=== PATIENT | male | born 1955 | race Caucasian/White ===

== ENCOUNTER 2016-08-24 19:54 | Emergency (ER) | payer OTHER ==
[2016-08-24 20:18] VITALS: BP 168/87; PULSE 66; TEMP 97.9; BMI 30.7
[2016-08-24] MEDS ORDERED: TAMSULOSIN HCL 0.4 MG CAP.ER.24H (FP) PO ONE (21:14)
[2016-08-24] MEDS ORDERED: ACETAMINOPHEN 325 MG TABLET (FP) PO ONE (21:14)
--- NOTE | 2016-08-24 21:16 | PDOC ---
History of Present Illness <Edna Benites - Last Filed: 08/24/16 21:49> - History of Present Illness Initial Comments: 08/24/16 21:18 The patient is a 61 year old male, with a significant past medical history of progressive 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, hypertension (on metoprolol and aspirin daily), and BPH (on tamsulosin), who presents to the emergency department with left shoulder pain and swelling s/p falling off of a chair this evening. The patient reports a bump over the left clavicle and pain with range of motion of the left shoulder. The patient also reports some mild pain to the left lower extremity but denies any tenderness or difficulty with range of motion. As per the patient s son, the patient lost balance while trying to sit on a backless chair and fell to his left side with outstretched left upper extremity. As per the patient s family, the patients mental status is at baseline and denies head trauma. The patient ambulates with a walker at baseline. He denies chest pain, shortness of breath, headache and dizziness. He denies fever, chills, nausea, vomit, diarrhea and constipation. He denies dysuria, frequency, urgency and hematuria. Allergies: NKDA PCP - Dr. Osmani Starks <Viry Soliman - Last Filed: 08/24/16 21:53> - General Chief Complaint: Injury Stated Complaint: SHOULDER INJURY/HEAD INJURY Time Seen by Provider: 08/24/16 20:45 Past History - Past Medical History HTN: Yes Other medical history: PSP - Immunization History Immunization Up to Date: Yes - Psycho/Social/Smoking Cessation Hx Suicidal Ideation: No Smoking History: Never smoked Have you smoked in the past 12 months: No Information on smoking cessation initiated: No Hx Alcohol Use: No Drug/Substance Use Hx: No Substance Use Type: None <Edna Benites - Last Filed: 08/24/16 21:49> <Viry Soliman - Last Filed: 08/24/16 21:53> - Past Medical History Allergies/Adverse Reactions: Allergies Allergy/AdvReac Type Severity Reaction Status Date / Time No Known Allergies Allergy Verified 08/24/16 20:18 Home Medications: Ambulatory Orders NK [No Known Home Medication] 08/24/16 Review of Systems - Review of Systems Able to Perform ROS?: Yes Comments:: 08/24/16 21:18 GENERAL/CONSTITUTIONAL: No fever or chills. No weakness. HEAD, EYES, EARS, NOSE AND THROAT: No change in vision. No ear pain or discharge. No sore throat. CARDIOVASCULAR: No chest pain or shortness of breath. RESPIRATORY: No cough, wheezing, or hemoptysis. GASTROINTESTINAL: No nausea, vomiting, diarrhea or constipation. GENITOURINARY: No dysuria, frequency, or change in urination. MUSCULOSKELETAL: (+) Pain to left shoulder, "bump" over left clavicle. Mild pain to left lower extremity. No joint or muscle swelling or pain. No neck or back pain. SKIN: No rash NEUROLOGIC: No headache, vertigo, loss of consciousness, or change in strength/ sensation. ENDOCRINE: No increased thirst. No abnormal weight change. HEMATOLOGIC/LYMPHATIC: No anemia, easy bleeding, or history of blood clots. ALLERGIC/IMMUNOLOGIC: No hives or skin allergy. <Viry Soliman - Last Filed: 08/24/16 21:53> *Physical Exam - Vital Signs Last Vital Signs Temp Pulse Resp BP Pulse Ox 97.9 F 66 18 168/87 96 08/24/16 20:14 08/24/16 20:14 08/24/16 20:14 08/24/16 20:14 08/24/16 20:14 <Edna Benites - Last Filed: 08/24/16 21:49> - Vital Signs Last Vital Signs Temp Pulse Resp BP Pulse Ox 97.9 F 66 18 168/87 96 08/24/16 20:14 08/24/16 20:14 08/24/16 20:14 08/24/16 20:14 08/24/16 20:14 - Physical Exam Comments: 08/24/16 21:19 GENERAL: Awake, alert, and fully oriented, in no acute distress HEAD: No signs of trauma EYES: PERRLA, EOMI, sclera anicteric, conjunctiva clear ENT: Auricles normal inspection, hearing grossly normal, nares patent, oropharynx clear without exudates. Moist mucosa NECK: Normal ROM, supple, no lymphadenopathy, JVD, or masses LUNGS: Breath sounds equal, clear to auscultation bilaterally. No wheezes, and no crackles HEART: Regular rate and rhythm, normal S1 and S2, no murmurs, rubs or gallops ABDOMEN: Soft, nontender, normoactive bowel sounds. No guarding, no rebound. No masses EXTREMITIES: (+) Normal range of motion, no edema. No clubbing or cyanosis. No cords, erythema, or tenderness NEUROLOGICAL: Cranial nerves II through XII grossly intact. Normal speech, normal gait SKIN: Warm, Dry, normal turgor, no rashes or lesions noted. <Viry Soliman - Last Filed: 08/24/16 21:53> ED Treatment Course - RADIOLOGY Radiology Studies Ordered: Category Date Time Status CLAVICLE-LEFT SIDE [RAD] Stat Radiology 08/24/16 21:15 Ordered SHOULDER-LEFT [RAD] Stat Radiology 08/24/16 21:15 Ordered <Edna Benites - Last Filed: 08/24/16 21:49> - RADIOLOGY Radiograph Interpretation: 08/24/16 21:40 Left shoulder/clavicle xray was read by Dr. Benites Impression: + there is a closed, displaced, mid clavicle fracture <Viry Soliman - Last Filed: 08/24/16 21:53> Medical Decision Making - Medical Decision Making 08/24/16 21:34 Dr. Starks was called via phone answering service at this time requesting a call back for doctor to doctor consult. 08/24/16 21:52 Dr. Starks returned the call at this time and the patient's case was discussed. Dr. Starks was informed of the referral to Dr. Merida for the left clavicle fracture with outpatient follow-up. <Viry Soliman - Last Filed: 08/24/16 21:53> *DC/Admit/Observation/Transfer - Discharge Dispostion Admit: No <Edna Benites - Last Filed: 08/24/16 21:49> <Viry Soliman - Last Filed: 08/24/16 21:53> Diagnosis at time of Disposition: Fracture, clavicle closed, shaft - Discharge Dispostion Disposition: HOME Condition at time of disposition: Stable - Referrals Referrals: Anirudh Merida MD [Staff Physician] - Osmani Starks MD [Primary Care Provider] - Carlos Alberto Rodriguez MD [Staff Physician] - Ulysses Call MD [Staff Physician] - - Patient Instructions Printed Discharge Instructions: DI for Clavicle Fracture-Adult
[2016-08-24] MEDS ORDERED: TAMSULOSIN HCL 0.4 MG CAP.ER.24H (FP) ONE (21:34)
[2016-08-24] MEDS ORDERED: ACETAMINOPHEN 325 MG TABLET (FP) ONE (21:34)
== END 2016-08-24 21:45 | disposition home or self-care (01) ==
LOC: JER 19:54
DX: S42.025A Nondisplaced fracture of shaft of left clavicle, initial encounter for closed fracture (principal); W07.XXXA Fall from chair, initial encounter; Y93.89 Activity, other specified; Y92.018 Other place in single-family (private) house as the place of occurrence of the external cause; I10 Essential (primary) hypertension; N40.0 Benign prostatic hyperplasia without lower urinary tract symptoms
CPT/HCPCS: 73000-TC-LT; 73030-TC-LT; 99281-25

== ENCOUNTER 2017-01-19 19:21 | Emergency (ER) | payer OTHER ==
[2017-01-19 19:46] VITALS: BP 142/84; PULSE 71; BMI 29.0
--- NOTE | 2017-01-19 21:15 | PDOC ---
History of Present Illness - General Chief Complaint: Injury Stated Complaint: FALL/INJURY Time Seen by Provider: 01/19/17 20:49 History Source: Patient - History of Present Illness Initial Comments: 01/19/17 21:18 CC: Fall Patient is a 61 y.o. male with a PMH of Progressive Supranuclear Palsy who presents to our ED today with his sons (@ bedside) following a fall at 2 a.m. this morning. Patient was on the toilet (possibly reaching for the toilet paper ) when he fell forward hitting his head and attempted to brace his fall with his hands. Patient is uncertain as to whether he lost consciousness. Patient denies any pre-fall syncope, shortness of breath chest pain but notes post fall he felt as if the room was spinning and he felt nauseous though he did not vomit. Past History - Past Medical History Allergies/Adverse Reactions: Allergies Allergy/AdvReac Type Severity Reaction Status Date / Time No Known Allergies Allergy Verified 01/19/17 19:46 Home Medications: Ambulatory Orders Tamsulosin HCl [Flomax] 0.4 mg PO DAILY 08/24/16 Amantadine HCl [Symmetrel -] 100 mg PO DAILY 01/19/17 Carbidopa/Levodopa *Cr* 25/100 [Sinemet *Cr* 25/100 -] 1 tab PO BID 01/19/17 Carbidopa/Levodopa 25/250 [Sinemet 25/250 -] 1 each PO DAILY 01/19/17 Gabapentin 100 mg PO DAILY 01/19/17 Losartan Potassium 50 mg PO DAILY 01/19/17 Metoprolol Tartrate 50 mg PO DAILY 01/19/17 Sertraline HCl [Zoloft] 100 mg PO DAILY 01/19/17 GI Disorders: Yes (GERD) HTN: Yes Other medical history: progressive palsey - Immunization History Immunization Up to Date: Yes - Psycho/Social/Smoking Cessation Hx Suicidal Ideation: No Smoking History: Never smoked Have you smoked in the past 12 months: No Hx Alcohol Use: No Drug/Substance Use Hx: No Substance Use Type: None *Physical Exam - Vital Signs Last Vital Signs Temp Pulse Resp BP Pulse Ox 71 18 142/84 96 01/19/17 19:43 01/19/17 19:43 01/19/17 19:43 01/19/17 19:43 - Physical Exam General Appearance: Yes: Nourished, Appropriately Dressed HEENT: positive: EOMI, TOM Neck: positive: Trachea midline, Supple Cardiovascular: positive: Regular Rhythm, Regular Rate, S1, S2 Gastrointestinal/Abdominal: positive: Normal Bowel Sounds, Soft Extremity: positive: Other (L hand has limited plant ecologist likely 2/2 to ) Medical Decision Making - Medical Decision Making 01/19/17 21:21 Patient is a 61 y.o. male who presents to our facility today following an unwitnessed fall at home in which he notes he hit his head. PLAN 1. CT Head 2. L shoulder x-ray 01/19/17 22:43 CT Head is negative for acute intracranial process. Wet read of L shoulder X- ray showed no humeral head dislocation, no subluxation,no fracture. Patient sent home with family, instructed to follow-up with PCP. *DC/Admit/Observation/Transfer Diagnosis at time of Disposition: Fall - Discharge Dispostion Disposition: HOME Condition at time of disposition: Good Admit: No - Referrals Referrals: Osmain Starks MD [Primary Care Provider] - - Patient Instructions Printed Discharge Instructions: How to Prevent Falls Additional Instructions: You were evaluated today in the Emergency Department for any brain bleed or broken bones following a fall. Please return to the Emergency Department should you experience any chest pain, shortness of breath, confusion or severe discomfort. Please follow up with your PCP in 3-5 days.
--- NOTE | 2017-01-19 23:12 | PDOC ---
Attending Attestation - Resident Resident Name: Elsie Cornejo - ED Attending Attestation I have performed the following: I have examined & evaluated the patient, The case was reviewed & discussed with the resident, I agree w/resident's findings & plan, Exceptions are as noted - HPI HPI: 01/19/17 23:07 61 yo M with h/o 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, lives at home with his sons, here today with reported fall at 2 am todya. noted abrasions forehead. pt has had several falls over the months. follows with a nuerologist ( dr flynn ) and dr hwang. no f/c /co mild left shoulder pain since fall. 01/19/17 23:12 - Physicial Exam PE: 01/19/17 23:12 on exam pt awake alert head wtih abrasion forehead. superfiical and nasal bridge. no spinal tendenress. lungs clear bilaterally, no chest wall tenderness. heart rrr no mrg. abd soft nt nd. nuero awake minimal verbal. slurred speech ( old ) 5/5 all four ext. reduced roving frame tender left hand. - Medical Decision Making 01/19/17 23:12 plan: ct head r/o traumatic injury. pt family states hes already had home safey eval and goes to physical therapy. recommend outp close follo up wih dr. hwang and dr. flynn. 01/19/17 23:[address] negative. xray shoulder negative for fracture. dc with close followup.
== END 2017-01-19 23:09 | disposition home or self-care (01) ==
LOC: JER 19:21
DX: S09.8XXA Other specified injuries of head, initial encounter (principal); W18.11XA Fall from or off toilet without subsequent striking against object, initial encounter; Z91.81 History of falling; Y93.89 Activity, other specified; Y92.013 Bedroom of single-family (private) house as the place of occurrence of the external cause; I10 Essential (primary) hypertension; K21.9 Gastro-esophageal reflux disease without esophagitis; G23.1 Progressive supranuclear ophthalmoplegia [Steele-Richardson-Olszewski]
CPT/HCPCS: 70450-TC; 73030-TC-LT; 73030-TC-RT; 73060-TC-LT; 99281-25

== ENCOUNTER 2017-10-16 12:38 | Emergency (ER) | payer OTHER ==
[2017-10-16 12:50] VITALS: TEMP 98.2; BMI 27.4
[2017-10-16] MEDS ORDERED: SODIUM CHLORIDE 500 ML IV STA (13:07)
--- NOTE | 2017-10-16 13:07 | PDOC ---
History of Present Illness - General History Source: Family - History of Present Illness Timing/Duration: reports: other (last night), constant <Terry May - Last Filed: 10/16/17 13:57> <Rehan Catherine - Last Filed: 10/23/17 15:03> - General Chief Complaint: Cold Symptoms Stated Complaint: COUGH, SOB Time Seen by Provider: 10/16/17 12:49 Past History - Past Medical History COPD: No GI Disorders: Yes (GERD) HTN: Yes Other medical history: progressive nucleosis paralysis disease - Immunization History Immunization Up to Date: Yes - Suicide/Smoking/Psychosocial Hx Smoking History: Never smoked Have you smoked in the past 12 months: No Information on smoking cessation initiated: No Hx Alcohol Use: No Drug/Substance Use Hx: No Substance Use Type: None <Terry May - Last Filed: 10/16/17 13:57> <FlorinRehan - Last Filed: 10/23/17 15:03> - Past Medical History Allergies/Adverse Reactions: Allergies Allergy/AdvReac Type Severity Reaction Status Date / Time No Known Allergies Allergy Verified 10/16/17 12:46 Home Medications: Ambulatory Orders Tamsulosin HCl [Flomax] 0.4 mg PO DAILY 08/24/16 Carbidopa/Levodopa 25/250 [Sinemet 25/250 -] 1 each PO ASDIR 01/19/17 Losartan Potassium 50 mg PO DAILY 01/19/17 Citalopram Hydrobromide [Citalopram HBr] 0 mg PO DAILY 10/16/17 Guaifenesin Dm [Robitussin Dm -] 10 ml PO Q6H #120 ml 10/16/17 Review of Systems - Review of Systems Able to Perform ROS?: No <Terry May Last Filed: 10/16/17 13:57> *Physical Exam - Vital Signs Last Vital Signs Temp Pulse Resp BP Pulse Ox 98.2 F 67 16 147/81 100 10/16/17 12:47 10/16/17 12:47 10/16/17 12:47 10/16/17 12:47 10/16/17 12:47 - Physical Exam General Appearance: Yes: Appropriately Dressed. No: Apparent Distress Neck: positive: Supple Respiratory/Chest: positive: Lungs Clear, Normal Breath Sounds. negative: Respiratory Distress Cardiovascular: positive: Regular Rate, S1, S2 Gastrointestinal/Abdominal: positive: Soft. negative: Tender Extremity: negative: Pedal Edema Integumentary: positive: Dry, Warm Neurologic: positive: Alert <Ibeth MayDelfina - Last Filed: 10/16/17 13:57> - Vital Signs Last Vital Signs Temp Pulse Resp BP Pulse Ox 98.2 F 83 17 118/79 99 10/16/17 14:08 10/16/17 14:08 10/16/17 14:08 10/16/17 14:08 10/16/17 14:08 <Rehan Catherine - Last Filed: 10/23/17 15:03> ED Treatment Course - LABORATORY CBC & Chemistry Diagram: 10/16/17 13:15 10/16/17 13:15 - RADIOLOGY Radiology Studies Ordered: Category Date Time Status CHEST PA & LAT [RAD] Stat Radiology 10/16/17 12:51 Ordered <JamaicanIbethDelfina - Last Filed: 10/16/17 13:57> - LABORATORY CBC & Chemistry Diagram: 10/16/17 13:15 10/16/17 13:15 - ADDITIONAL ORDERS Additional order review: 10/16/17 13:15 RBC 5.06 MCV 89.1 MCHC 33.5 RDW 13.6 MPV 7.2 L Neutrophils % 62.3 Lymphocytes % 27.6 Monocytes % 8.8 Eosinophils % 0.9 Basophils % 0.4 - Medications Given in the ED: ED Medications Discontinued Medications Generic Name Dose Route Start Last Admin Trade Name Freq PRN Reason Stop Dose Admin Sodium Chloride 500 mls @ 500 mls/hr 10/16/17 13:07 10/16/17 13:36 Normal Saline - IV 10/16/17 14:06 500 mls/hr ASDIR STA Administration <Rehan Catherine - Last Filed: 10/23/17 15:03> Medical Decision Making - Medical Decision Making 10/16/17 13:05 38-year-old male history of progressive 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, ambulates with walker but mostly in a wheelchair per son, hypertension and BPH who presents to ER with productive cough with possible wheezing since last night. Family brought patient in rule out pneumonia. No fever or vomiting at home. Patient with poor speech at baseline and unable to give history, but does not appear to be in any distress at this time See exam Viral URI, r/o PNA Stable and well neel w/ clear chest/lungs, no edema -CXR -labs -IVF -dispo pending 10/16/17 13:54 Chest x-ray and labs unremarkable. Patient remained stable and well appearing, in ED. Will DC with supportive treatment and have patient follow-up with his PMD next week. Reasons to return discussed with family <Terry May - Last Filed: 10/16/17 13:57> - Medical Decision Making The patient was seen and evaluated in conjunction with TRACEY May under my direct supervision, ancillary studies were reviewed. I agree with the plan as outlined by TRACEY May . <Rehan Catherine - Last Filed: 10/23/17 15:03> *DC/Admit/Observation/Transfer <Terry May - Last Filed: 10/16/17 13:57> <Rehan Catherine - Last Filed: 10/23/17 15:03> Diagnosis at time of Disposition: Cough - Discharge Dispostion Disposition: HOME Condition at time of disposition: Good - Prescriptions Prescriptions: Guaifenesin Dm [Robitussin Dm -] 10 ml PO Q6H #120 ml - Referrals Referrals: Osmani Starks MD [Primary Care Provider] - - Patient Instructions Printed Discharge Instructions: DI for Viral Upper Respiratory Infection -- Adult Additional Instructions: Your chest x-ray and lab work were normal. We suspect that patient has a viral upper respiratory infection. Maintain adequate hydration and administer Robitussin as directed. Continue to follow-up with patient's PMD
[2017-10-16 13:25] LABS: BASO % 0.4 % (0-2.0); EOS % 0.9 % (0-4.5); HEMATOCRIT 45.1 % (35.4-49); HEMOGLOBIN 15.1 GM/dL (11.7-16.9); LYMPH % 27.6 % (8-40); MCH 29.8 pg (25.7-33.7); MCHC 33.5 g/dl (32.0-35.9); MEAN CELL VOLUME 89.1 fl (80-96); MEAN PLT VOLUME 7.2 fl (7.5-11.1); MONO % 8.8 % (3.8-10.2); NEUT % 62.3 % (42.8-82.8); PLATELET COUNT 332 K/MM3 (134-434); RBC 5.06 M/mm3 (4.00-5.60); RDW 13.6 % (11.9-15.9); WHITE BLOOD COUNT 4.9 K/mm3 (4.0-10.0)
[2017-10-16 13:51] LABS: ALBUMIN 3.5 g/dl (3.4-5.0); ANION GAP 7 (8-16); BILIRUBIN,TOTAL 0.9 mg/dL (0.2-1.0); BLOOD UREA NITROGEN 20 mg/dL (7-18); CALCIUM 8.7 mg/dL (8.5-10.1); CHLORIDE 107 mmol/L (98-107); CO2 30 mmol/L (21-32); CREATININE 0.9 mg/dL (0.7-1.3); GLUCOSE,RANDOM 111 mg/dL (74-106); SGOT/AST 16 U/L (15-37); SGPT/ALT 17 U/L (12-78); SODIUM 144 mmol/L (136-145); TOT PROT 7.4 g/dl (6.4-8.2)
[2017-10-16 13:52] LABS: ALK PHOS 91 U/L (45-117)
[2017-10-16 14:09] VITALS: BP 118/79; PULSE 83
== END 2017-10-16 14:09 | disposition home or self-care (01) ==
LOC: JER 12:38
PROC: 3E0337Z Introduction of Electrolytic and Water Balance Substance into Peripheral Vein, Percutaneous Approach (ICD-10-PCS; principal; 2017-10-16)
DX: R05 Cough (principal); G83.9 Paralytic syndrome, unspecified; Z99.89 Dependence on other enabling machines and devices
CPT/HCPCS: 36415; 71045-TC-FY; 80053; 85025; 96360; 99283-25

== ENCOUNTER 2017-12-15 14:01 | Day surgery (SDC) | payer OTHER ==
[2017-12-14 14:59] VITALS: BMI 22.4
[2017-12-15 14:37] VITALS: BP 131/68; PULSE 76; TEMP 98.2
[2017-12-15] MEDS ORDERED: CARBIDOPA/LEVODOPA 25/100 TABLET (FP) PO SCH (18:00)
[2017-12-16] MEDS ORDERED: TAMSULOSIN HCL 0.4 MG CAP.ER.24H (FP) PO SCH (08:30)
[2017-12-16] MEDS ORDERED: LOSARTAN POTASSIUM 50 MG TABLET (FP) PO SCH (10:00)
[2017-12-16] MEDS ORDERED: NEBIVOLOL 5 MG TABLET (FP) PO SCH (10:00)
[2017-12-16] MEDS ORDERED: ESCITALOPRAM OXALATE 10 MG TABLET (FP) PO SCH (10:00)
== END 2017-12-15 20:23 | disposition home or self-care (01) ==
LOC: JASUSAT 14:01 → J6S 14:27 → JASUSAT 20:23
PROVIDERS: ATTEND Internal Medicine Gastroenterology
PROC: 0DH63UZ Insertion of Feeding Device into Stomach, Percutaneous Approach (ICD-10-PCS; principal; 2017-12-15 09:15)
DX: Z43.1 Encounter for attention to gastrostomy (principal); R13.19 Other dysphagia

== ENCOUNTER 2019-03-09 16:05 | Inpatient (IN) | payer OTHER ==
--- NOTE | 2019-03-09 16:14 | PDOC ---
Rapid Medical Evaluation Time Seen by Provider: 03/09/19 16:13 Medical Evaluation: Allergies Allergy/AdvReac Type Severity Reaction Status Date / Time No Known Allergies Allergy Verified 10/16/17 12:46 03/09/19 16:15 I have performed a brief in-person evaluation of this patient. The patient presents with a chief complaint of: dyspnea Pertinent physical exam findings:stable and in NAD, non-focal I have ordered the following:labs The patient will proceed to the ED for further evaluation.
--- NOTE | 2019-03-09 16:53 | PDOC ---
Documentation entered by Roxy Alcazar SCRIBE, acting as scribe for Edda Chaudhry DO. Edda Chaudhry, DO: This documentation has been prepared by the Inge davis Adrianna, SCRIBE, under my direction and personally reviewed by me in its entirety. I confirm that the documentation accurately reflects all work, treatment, procedures, and medical decision making performed by me. History of Present Illness - General Chief Complaint: Respiratory Stated Complaint: CHEST CONGESTION Time Seen by Provider: 03/09/19 16:13 - History of Present Illness Initial Comments: The patient is a 63 year old male, with a significant PMH of 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 , who presents to the ED for evaluation of dyspnea for 10 days. History is provided by son, who is a MD. Son notes that the patient has had URI symptoms for the past 10 days, including cough, runny nose, congestion, sore throat, SOB , and fever (low 100s). Son prescribed the patient Augmentin, which alleviated the fever, but the SOB, cough, and wheezing remained (worse when lying flat). He notes that the patient cannot clear his cough secondary to his 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. Patient was given a duoneb and mucomyst last night without any changes in symptoms. He presents to the ED today as his symptoms have not resolved and his O2 sat dropped to 96 today. Allergies: NKA, NKDA Surgical History: None reported Social History: Supranuclear palsy PCP: Dr. Starks Neurologist: Dr. Bashir Past History - Past Medical History Allergies/Adverse Reactions: Allergies Allergy/AdvReac Type Severity Reaction Status Date / Time No Known Allergies Allergy Verified 03/09/19 17:54 Home Medications: Ambulatory Orders Carbidopa/Levodopa 25/250 [Sinemet 25/250 -] 1 each PO ASDIR 01/19/17 Escitalopram Oxalate [Lexapro -] 10 mg PO DAILY 12/14/17 Doxazosin Mesylate 4 mg PO DAILY 03/09/19 Mirtazapine 15 mg PO DAILY 03/09/19 Anemia: No Asthma: No Cancer: No Cardiac Disorders: No CVA: No COPD: No CHF: No Dementia: No Diabetes: No GI Disorders: Yes (GERD) Disorders: (BPH) HTN: Yes Hypercholesterolemia: No Seizures: No Other medical history: PSP - Surgical History Abdominal Surgery: (G-TUBE) - Immunization History Immunization Up to Date: Yes - Psycho Social/Smoking Cessation Hx Smoking History: Never smoked Have you smoked in the past 12 months: No Hx Alcohol Use: No Drug/Substance Use Hx: No Substance Use Type: None Review of Systems - Review of Systems Able to Perform ROS?: No (2/2 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) *Physical Exam - Vital Signs Last Vital Signs Temp Pulse Resp BP Pulse Ox 98.1 F 90 18 128/68 95 03/09/19 16:13 03/09/19 16:13 03/09/19 16:13 03/09/19 16:13 03/09/19 16:13 - Physical Exam Comments: Constitutional: +Upwards gaze. +Garbling speech. Awake, alert, oriented. No acute distress. Head: Normocephalic. Atraumatic Eyes: PERRL. EOMI. Conjunctivae are not pale. ENT: Mucous membranes are moist and intact. Posterior pharynx without exudates or erythema. Uvula midline. Neck: Supple. Full ROM. No lymphadenopathy. Cardiovascular: Regular rate. Regular rhythm. S1, S2 regular. Distal pulses are 2+ and symmetric. Pulmonary/Chest: +Crackles at the bilateral bases. +Upper airway transmitting sounds of phlegm. No evidence of respiratory distress. No rales or rhonchi. Abdominal: +PEG tube in place. Soft and nondistended. There is no tenderness. No rebound, guarding or rigidity. No organomegaly. No palpable masses. Good bowel sounds. Back: No CVA tenderness. Musculoskeletal: Moving all extremities. No edema. No cyanosis. No clubbing. Nocalf tenderness. Radial/pedal pulses are intact and 2+ bilaterally Skin: Skin is warm and dry. No petechiae. No purpura. Neurological: Cranial nerves II-XII are grossly intact. Strength is grossly symmetric. Heart Score/ECG Review - ECG Intrepretation Comment:: 03/09/19 17:20 sinus at 80, nl axis, incomplete RBBB, q waves septally which are age indeterminate, no acute st/t wave findings ED Treatment Course - LABORATORY CBC & Chemistry Diagram: 03/09/19 16:30 03/09/19 16:30 Medical Decision Making - Medical Decision Making 03/09/19 16:50 a/p: 63yo male with hx of 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 with cough/congestion and sob -no hx of O2 use at home -has been treated with augmentin x 10 days with worsening cough/sob, congestion -low pulse ox -92-93 at home today -pt currenlty 94-95 on 2L nc -pt with coarse bs and congested cough, but poor cough reflex -pt with peg tube, npo -no fevers since on being on augmentin -will send labs, cultures -cxr -ekg -pmd dr. margy starks, neuro dr. bashir -pt will likely need admission for eval of sob/cough 03/09/19 18:21 cxr clear no elevated wbc 03/09/19 18:27 family and pt updated, smoke with son, the physician about ordering a CT scan will continue to monitor 03/09/19 20:39 pt with patchy b/l infiltrates pt has had 10 days of abx as outpt failed therapy pulse ox 91-94 on 2L nc will admit family updated and agrees with the plan call placed to Dr. Bashir to update him as well 03/09/19 20:41 I, Dr. Edda Chuadhry, DO, attest that this document has been prepared under my direction and personally reviewed by me in its entirety. I further attest, that it accurately reflects all work, treatment, procedures and medical decision -making performed by me. 03/09/19 21:23 case discussed with Deena- rubber covering machine operator from [facility] who accepts pt to service under Dr. Bhakta case discussed with Dr. Bashir who will see the patient tomorrow in consult Discharge - Discharge Information Problems reviewed: Yes Clinical Impression/Diagnosis: Pneumonia Condition: Guarded - Admission Yes - Follow up/Referral Referrals: Margy Starks MD [Primary Care Provider] - - Patient Discharge Instructions - Post Discharge Activity
[2019-03-09 17:05] LABS: VENOUS PC02 41.4 mmHg (38-52); VENOUS PH 7.44 (7.31-7.41)
[2019-03-09 17:08] LABS: BASO % 0.4 % (0-2.0); EOS % 0.7 % (0-4.5); HEMATOCRIT 39.2 % (35.4-49); HEMOGLOBIN 13.7 GM/dL (11.7-16.9); LYMPH % 20.9 % (8-40); MCH 32.5 pg (25.7-33.7); MEAN CELL VOLUME 92.9 fl (80-96); MEAN PLT VOLUME 8.4 fl (7.5-11.1); MONO % 5.1 % (3.8-10.2); NEUT % 72.9 % (42.8-82.8); PLATELET COUNT 244 K/MM3 (134-434); RBC 4.22 M/mm3 (4.00-5.60); RDW 12.7 % (11.9-15.9); WHITE BLOOD COUNT 6.2 K/mm3 (4.0-10.0)
[2019-03-09 17:33] LABS: ALBUMIN 3.5 g/dl (3.4-5.0); ALK PHOS 88 U/L (45-117); ANION GAP 7 MMOL/L (8-16); BILIRUBIN,TOTAL 1.3 mg/dL (0.2-1); BLOOD UREA NITROGEN 18.9 mg/dL (7-18); CALCIUM 8.7 mg/dL (8.5-10.1); CHLORIDE 105 mmol/L (98-107); CO2 29 mmol/L (21-32); CREATININE 0.7 mg/dL (0.55-1.3); GLUCOSE,RANDOM 105 mg/dL (74-106); POTASSIUM 3.9 mmol/L (3.5-5.1); SGOT/AST 18 U/L (15-37); SGPT/ALT 13 U/L (13-61); SODIUM 141 mmol/L (136-145)
[2019-03-09 17:43] LABS: INR 1.13 (0.83-1.09); PROTHROMBIN TIME (PATIENT) 13.3 SEC (9.7-13.0)
[2019-03-09 17:46] LABS: ACTIVATED PTT 36.7 SECONDS (25.2-36.5)
[2019-03-09 18:44] LABS: N-TERMINAL BNP 71.9 pg/ml (5-125)
[2019-03-09] MEDS ORDERED: CEFTRIAXONE 1 GM in DEXTROSE 5%-WATER - 100 ML IVPB ONE (20:36)
[2019-03-09] MEDS ORDERED: AZITHROMYCIN IVPB 500 MG in DEXTROSE 5%-WATER - 250 ML IVPB ONE (20:36)
[2019-03-09] MEDS ORDERED: AZITHROMYCIN IVPB 500 MG/250 ML BAG IVPB ONE (20:39)
[2019-03-09] MEDS ORDERED: CEFTRIAXONE 1 GM/50 ML BAG ONE (20:40)
[2019-03-09] MEDS ORDERED: CARBIDOPA/LEVODOPA 25/250 TABLET (FP) PEG ONE (21:55)
[2019-03-09] MEDS ORDERED: CEFTRIAXONE 500 MG in DEXTROSE 5%-WATER - 50 ML IVPB SCH (22:00)
[2019-03-09] MEDS ORDERED: CARBIDOPA/LEVODOPA 25/250 TABLET (FP) PO SCH (22:00)
[2019-03-09] MEDS ORDERED: CARBIDOPA/LEVODOPA 25/250 TABLET (FP) PEG SCH (22:00)
--- NOTE | 2019-03-09 22:13 | HP ---
CHIEF COMPLAINT: fever, shortness of breath, cough and congestion for 10 days PCP:Dr. Osmani Starks Neurologist: Dr. Bashir HISTORY OF PRESENT ILLNESS: Mr. Kaplan is a 63 year old male who presents from home with a past medical history of 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 (follows with Dr. Bashir of Neurology, has a feeding tube), depression/anxiety, BPH and no cardiac history who presents to the emergency room for evaluation of dyspnea associated with fever,cough, and congestion for the past 10 days. Son who is a physician prescribed the patient Augmentin which he took for 10 days which alleviated the fever, but the SOB, cough, and congestion remained and was worse when lying flat. Patient presented to the ER for further evaluation. Upon evaluation in the ER labs notable for a normal WBC and lactic acid level( 1.6, repeat 0.9), normal BNP and troponin. CT scan of chest demonstrated bilateral infiltrate consistent with a bilateral pneumonia and a very small pericardial effusion as seen on prior study. He was treated with one dose of IV Rocephin 1 gm and IV Azithromycin 500mg. He was admitted to the Medical Team for further medical treatment. DNR Status: Full Code History obtained from 2 sons at bedside. Recent Travel: no PAST MEDICAL HISTORY: 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 PAST SURGICAL HISTORY: PEG Social History: Smoking:no Alcohol:no Drugs: no Allergies No Known Allergies Allergy (Verified 03/09/19 17:54) HOME MEDICATIONS: Home Medications Medication Instructions Recorded Carbidopa/Levodopa 25/250 [Sinemet 1 each PO ASDIR 01/19/17 25/250 -] Escitalopram Oxalate [Lexapro -] 10 mg PO DAILY 12/14/17 Doxazosin Mesylate 4 mg PO DAILY 03/09/19 Mirtazapine 15 mg PO DAILY 03/09/19 REVIEW OF SYSTEMS CONSTITUTIONAL: Absent: fever, chills, diaphoresis, generalized weakness, malaise, loss of appetite, weight change HEENT: Absent: rhinorrhea, congestion, throat pain, throat swelling, difficulty swallowing, mouth swelling, ear pain, eye pain, visual changes CARDIOVASCULAR: Absent: chest pain, syncope, palpitations, irregular heart rate, lightheadedness , peripheral edema RESPIRATORY: Absent: cough, shortness of breath, dyspnea with exertion, orthopnea, wheezing, stridor, hemoptysis GASTROINTESTINAL: Absent: abdominal pain, abdominal distension, nausea, vomiting, diarrhea, constipation, melena, hematochezia GENITOURINARY: Absent: dysuria, frequency, urgency, hesitancy, hematuria, flank pain, genital pain MUSCULOSKELETAL: Absent: myalgia, arthralgia, joint swelling, back pain, neck pain SKIN: Absent: rash, itching, pallor HEMATOLOGIC/IMMUNOLOGIC: Absent: easy bleeding, easy bruising, lymphadenopathy, frequent infections ENDOCRINE: Absent: unexplained weight gain, unexplained weight loss, heat intolerance, cold intolerance NEUROLOGIC: Absent: headache, focal weakness or paresthesias, dizziness, unsteady gait, seizure, mental status changes, bladder or bowel incontinence PSYCHIATRIC: Absent: anxiety, depression, suicidal or homicidal ideation, hallucinations. PHYSICAL EXAMINATION Vital Signs - 24 hr 03/09/19 03/09/19 03/09/19 16:13 16:55 18:13 Temperature 98.1 F Pulse Rate 90 80 Respiratory 18 Rate Blood Pressure 128/68 O2 Sat by Pulse 95 93 L 95 Oximetry (%) GENERAL: awake and alert follows simple commands HEAD: normal EYES: pupils equal round and reactive to light EARS, NOSE, THROAT: ears normal nares patent oropharynx clear NECK: normal LUNGS: breath sounds coarse and rhonchourous, audible congestion noted, no use of accessory muscles HEART: regular rate and rhythm no murmurs ABDOMEN: soft nontender not distended has G-tube UPPER EXTREMITIES: 2+ pulses warm well-perfused no peripheral edema LOWER EXTREMITIES: 2+ pulses warm well-perfused no pitting edema NEUROLOGICAL: moving upper and lower extremities follows simple commands strength appears symmetrical PSYCHIATRIC: appears anxious SKIN: warm dry normal skin turgor Laboratory Results - last 24 hr 03/09/19 03/09/19 03/09/19 16:30 16:30 16:30 WBC 6.2 RBC 4.22 Hgb 13.7 Hct 39.2 MCV 92.9 MCH 32.5 MCHC 35.0 RDW 12.7 Plt Count 244 D MPV 8.4 D Absolute Neuts (auto) 4.5 Neutrophils % 72.9 Lymphocytes % 20.9 D Monocytes % 5.1 Eosinophils % 0.7 Basophils % 0.4 Nucleated RBC % 0 PT with INR INR PTT (Actin FS) VBG pH POC VBG pCO2 POC VBG pO2 VBG HCO3 VBG O2 Sat (Kwame) VBG Base Excess Sodium 141 Potassium 3.9 Chloride 105 Carbon Dioxide 29 Anion Gap 7 L BUN 18.9 H Creatinine 0.7 Est GFR (CKD-EPI)AfAm 114.78 Est GFR (CKD-EPI)NonAf 99.03 Random Glucose 105 Lactic Acid 1.6 Calcium 8.7 Total Bilirubin 1.3 H AST 18 ALT 13 Alkaline Phosphatase 88 Troponin I < 0.02 B-Natriuretic Peptide 71.9 Total Protein 7.0 Albumin 3.5 03/09/19 03/09/19 16:30 16:30 WBC RBC Hgb Hct MCV MCH MCHC RDW Plt Count MPV Absolute Neuts (auto) Neutrophils % Lymphocytes % Monocytes % Eosinophils % Basophils % Nucleated RBC % PT with INR 13.30 H INR 1.13 H PTT (Actin FS) 36.7 H VBG pH 7.44 H POC VBG pCO2 41.4 POC VBG pO2 57.0 H VBG HCO3 27.8 VBG O2 Sat (Kwame) 90.1 H VBG Base Excess 3.8 H Sodium Potassium Chloride Carbon Dioxide Anion Gap BUN Creatinine Est GFR (CKD-EPI)AfAm Est GFR (CKD-EPI)NonAf Random Glucose Lactic Acid Calcium Total Bilirubin AST ALT Alkaline Phosphatase Troponin I B-Natriuretic Peptide Total Protein Albumin ASSESSMENT/PLAN: In summary Mr. Kaplan is a 63 year old male with a past medical history of 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 and BPH who presents for evaluation of dyspnea associated with fever, cough, and congestion for the past 10 days despite taking oral Augmentin for [address] scan of chest demonstrated bilateral infiltrates. #1 Bilateral Pneumonia Workup w/ normal WBC and lactic acid level. Patient has clinical signs of PNA, oxygen sat 93-95%,hemodynamically stable and currently afebrile --Continue with IV Azithromycin 250mg once daily and IV Ceftriaxone 500mg once daily --Consulted Infectious Diseases- Dr. Jackson --Consulted Pulmonary- Dr. Griffith --Albuterol respiratory treatment q6hr --Maintain oxygen saturation >90% #2 Supranuclear Palsy --Continue with sinemet 25/250mg QID(Neurology will clarify dose in am) --Neurology- Dr. Bashir consulted #3 Depression/Anxiety --Continue with mitrazapine and lexapro #4 Pericardial Effusion(very small) As reported on CT scan of chest no change in size from prior study No evidence of hypotension or tachycardia --Continue to monitor hemodynamic status #4 BPH --Continue with doxzosin DVT --SCD's/TEDS --Lovenox 40mg once daily FEN --Jevity bolus feeding by PEG --Land Commissioner consult placed for feeding recommendations (albumin level 3.5) --Monitor electrolytes Visit type - Emergency Visit Emergency Visit: Yes ED Registration Date: 03/09/19 Care time: The patient presented to the Emergency Department on the above date and was hospitalized for further evaluation of their emergent condition. - New Patient This patient is new to me today: Yes Date on this admission: 03/09/19 - Critical Care Critical Care patient: No
[2019-03-09] MEDS ORDERED: ENOXAPARIN NA (PORCINE) 40 MG/0.4 ML DISP.SYRIN SQ ONE (22:32)
[2019-03-09] MEDS ORDERED: CARBIDOPA/LEVODOPA 25/100 TABLET (FP) ONE (22:32)
[2019-03-09] MEDS: ENOXAPARIN NA (PORCINE) 40 MG/0.4 ML DISP.SYRIN SQ SCH (22:44)
[2019-03-09] MEDS ORDERED: ALBUTEROL SO4 0.083% IH SOL 2.5 MG/3 ML VIAL.NEB. NEB ONE (23:44)
[2019-03-09] MEDS: ALBUTEROL SO4 0.083% IH SOL 2.5 MG/3 ML VIAL.NEB. NEB SCH (23:47)
[2019-03-10] MEDS: SODIUM CHLORIDE 1,000 ML IV SCH (00:52)
[2019-03-10] MEDS: ALBUTEROL SO4 0.083% IH SOL 2.5 MG/3 ML VIAL.NEB. NEB SCH ×4 (08:00→20:53)
[2019-03-10 09:49] LABS: BASO % 0.4 % (0-2.0); EOS % 0.3 % (0-4.5); HEMATOCRIT 36.5 % (35.4-49); HEMOGLOBIN 12.8 GM/dL (11.7-16.9); LYMPH % 14.2 % (8-40); MCH 32.7 pg (25.7-33.7); MCHC 35.2 g/dl (32.0-35.9); MEAN CELL VOLUME 92.8 fl (80-96); MEAN PLT VOLUME 8.5 fl (7.5-11.1); MONO % 6.4 % (3.8-10.2); NEUT % 78.7 % (42.8-82.8); PLATELET COUNT 228 K/MM3 (134-434); RBC 3.93 M/mm3 (4.00-5.60); RDW 12.9 % (11.9-15.9)
[2019-03-10] MEDS ORDERED: ESCITALOPRAM OXALATE 10 MG TABLET (FP) PEG SCH (10:00)
[2019-03-10 10:16] LABS: BLOOD UREA NITROGEN 16.1 mg/dL (7-18); CALCIUM 8.6 mg/dL (8.5-10.1); CREATININE 0.6 mg/dL (0.55-1.3); POTASSIUM 3.7 mmol/L (3.5-5.1)
--- NOTE | 2019-03-10 10:48 | CON.PULM ---
Consult Consult Specialty:: PULM/CCM Referred by:: KAEL Reason for Consultation:: PNA - History of Present Illness Chief Complaint: SOB History of Present Illness: 63 M, known 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. Admitted via the ER due to 10 days of URI symptoms, including congested cough, sore throat, SOB, and low grade fever. History is garnered from the chart as the patient is not able to provide information. No apparent travel history. No apparent sick contacts. CT: RUL infiltrates / posterior and basilar impacted mucous - History Source History Provided By: Medical Record Limitations to Obtaining History: Clinical Condition - Alcohol/Substance Use Hx Alcohol Use: No - Smoking History Smoking history: Never smoked Have you smoked in the past 12 months: No Home Medications - Allergies Allergies/Adverse Reactions: Allergies Allergy/AdvReac Type Severity Reaction Status Date / Time No Known Allergies Allergy Verified 03/09/19 17:54 - Home Medications Home Medications: Ambulatory Orders Carbidopa/Levodopa 25/250 [Sinemet 25/250 -] 1 each PO ASDIR 01/19/17 Escitalopram Oxalate [Lexapro -] 10 mg PO DAILY 12/14/17 Doxazosin Mesylate 4 mg PO DAILY 03/09/19 Mirtazapine 15 mg PO DAILY 03/09/19 Review of Systems Unable to obtain ROS, reason: not able to provide Physical Exam Vital Sings: Vital Signs Temperature 98.0 F 03/10/19 05:00 Pulse Rate 83 03/10/19 05:00 Respiratory Rate 18 03/10/19 05:00 Blood Pressure 136/80 03/10/19 05:00 O2 Sat by Pulse Oximetry (%) 95 03/09/19 23:28 Constitutional: Yes: No Distress, Thin Eyes: Yes: Conjunctiva Clear, EOM Intact HENT: Yes: Atraumatic, Normocephalic Neck: Yes: Supple, Trachea Midline Cardiovascular: Yes: Regular Rate and Rhythm Respiratory: Yes: Cough, Diminished, On Nasal O2, Rhonchi. No: Accessory Muscle Use, Rales, SOB, SOB on Exertion, Stridor, Tachypnea, Wheezes ...Inspection: Yes: WNL ...Clubbing: No Gastrointestinal: Yes: Normal Bowel Sounds, Soft Musculoskeletal: Yes: Joint Stiffness, Muscle Weakness Extremities: Yes: Shortened Edema: No Peripheral Pulses WNL: Yes Integumentary: Yes: WNL Neurological: Yes: Confusion, Pre-Existing Deficit Labs: CBC, BMP 03/10/19 08:05 03/10/19 08:05 Imaging - Results Chest X-ray: Report Reviewed, Image Reviewed Cat Scan: Report Reviewed, Image Reviewed Problem List - Problems (1) Supranuclear palsy Code(s): G23.1 - PROGRESSIVE SUPRANUCLEAR OPHTHALMOPLEGIA (2) Pneumonia Code(s): J18.9 - PNEUMONIA, UNSPECIFIED ORGANISM (3) Cough Code(s): R05 - COUGH Assessment/Plan Noted patient was started on empiric Rocpehin/Zithromax O2 as needed BD TX Short course of steroids Chest PT Aspiration precautions VTE prophylaxis Check urine antigen Will follow Thank you. Dr Scott
--- NOTE | 2019-03-10 11:20 | PN ---
Progress Note, Physician Chief Complaint: Pneumonia SOB History of Present Illness: Previous notes and events reviewed awake and alert NAD afebrile no leukocytosis - Current Medication List Current Medications: Active Medications Albuterol Sulfate (Ventolin 0.083% Nebulizer Soln -) 1 amp NEB RQID [facility] Last Admin: 03/10/19 08:00 Dose: 1 amp Carbidopa/Levodopa (Sinemet 25/250 -) 1 each PEG QID [facility] Doxazosin Mesylate (Cardura -) 4 mg PEG DAILY [facility] Enoxaparin Sodium (Lovenox -) 40 mg SQ DAILY [facility] Last Admin: 03/09/19 22:44 Dose: 40 mg Escitalopram Oxalate (Lexapro -) 10 mg PEG DAILY [facility] Azithromycin 250 mg/ Dextrose 250 mls @ 250 mls/hr IVPB DAILY [facility] Ceftriaxone Sodium 500 mg/ (Dextrose) 50 mls @ 100 mls/hr IVPB DAILY [facility]; Protocol Sodium Chloride (Normal Saline -) 1,000 mls @ 60 mls/hr IV ASDIR [facility] Last Admin: 03/10/19 00:52 Dose: 60 mls/hr Methylprednisolone Sodium Succinate (Solu-Medrol -) 40 mg IVPUSH Q6H-IV [facility] Mirtazapine (Remeron -) 15 mg PEG HS [facility] - Objective Vital Signs: Vital Signs Temperature 98.0 F 03/10/19 05:00 Pulse Rate 83 03/10/19 05:00 Respiratory Rate 18 03/10/19 05:00 Blood Pressure 136/80 03/10/19 05:00 O2 Sat by Pulse Oximetry (%) 95 03/09/19 23:28 Constitutional: Yes: No Distress, Calm Eyes: Yes: Conjunctiva Clear HENT: Yes: Atraumatic Cardiovascular: Yes: Regular Rate and Rhythm Respiratory: Yes: Regular, On Nasal O2, Rhonchi Gastrointestinal: Yes: Normal Bowel Sounds, Soft Genitourinary: Yes: Incontinence Musculoskeletal: Yes: Muscle Weakness Extremities: Yes: WNL Edema: No Neurological: Yes: Alert Psychiatric: Yes: Alert Labs: CBC, BMP 03/10/19 08:05 03/10/19 08:05 INR, PTT INR 1.13 (0.83-1.09) H 03/09/19 16:30 Problem List - Problems (1) Pneumonia Assessment/Plan: -ID and Pulm on board -Ceftriaxone, Azithromycin -afebrile -Bronchodilators -keep SpO2 >90% -O2 via NC -IV Medrol -Chest CT scan shows small patchy bilateral pulmonary infiltrates Code(s): J18.9 - PNEUMONIA, UNSPECIFIED ORGANISM (2) Supranuclear palsy Assessment/Plan: -Neurology on board -Sinemet Code(s): G23.1 - PROGRESSIVE SUPRANUCLEAR OPHTHALMOPLEGIA (3) BPH (benign prostatic hyperplasia) Assessment/Plan: -Doxazosin Code(s): N40.0 - BENIGN PROSTATIC HYPERPLASIA WITHOUT LOWER URINRY TRACT SYMP (4) Pericardial effusion Assessment/Plan: -Chest CT scan shows very small pericardial effusion without obvious interval change Code(s): I31.3 - PERICARDIAL EFFUSION (NONINFLAMMATORY) Assessment/Plan see problem list dvt ppx
[2019-03-10] MEDS: CEFTRIAXONE 500 MG in DEXTROSE 5%-WATER - 50 ML IVPB SCH (11:30)
[2019-03-10] MEDS ORDERED: PT OWN MED DRAWER 7, Y5N ONE (11:59)
[2019-03-10] MEDS: ENOXAPARIN NA (PORCINE) 40 MG/0.4 ML DISP.SYRIN SQ SCH (12:03)
[2019-03-10] MEDS: CARBIDOPA/LEVODOPA 25/250 TABLET (FP) PEG SCH ×4 (12:03→21:37)
[2019-03-10] MEDS: AZITHROMYCIN IVPB 250 MG in DEXTROSE 5%-WATER - 250 ML IVPB SCH (12:04)
--- NOTE | 2019-03-10 13:01 | PN ---
Progress Note (short form) - Note Progress Note: ID CONSULT DICTATED COMMUNITY ACQUIRED V. ATYPICAL PNEUMONIA ? ASPIRATION SUPRANUCLEAR PALSY AWAIT C/S EMPIRIC ZITHROMAX/ CEFTRIAXONE
--- NOTE | 2019-03-10 13:18 | EKG ---
Test Reason : Blood Pressure : / mmHG Vent. Rate : 080 BPM Atrial Rate : 080 BPM P-R Int : 164 ms QRS Dur : 114 ms QT Int : 394 ms P-R-T Axes : 068 026 024 degrees QTc Int : 454 ms NORMAL SINUS RHYTHM POSSIBLE LEFT ATRIAL ENLARGEMENT INCOMPLETE RIGHT BUNDLE BRANCH BLOCK SEPTAL INFARCT , AGE UNDETERMINED ABNORMAL ECG NO PREVIOUS ECGS AVAILABLE Confirmed by IVAN SALEEM MD ([id number]) on 03/10/2019 1:18:01 PM Referred By: Confirmed By:IVAN SALEEM MD
[2019-03-10] MEDS: DOXAZOSIN MESYLATE 4 MG TABLET PEG SCH (13:48)
--- NOTE | 2019-03-10 14:05 | CONS ---
INFECTIOUS DISEASE CONSULTATION DATE OF CONSULTATION: DATE OF DICTATION: 03/10/2019 HISTORY OF PRESENT ILLNESS: The patient is a 63-year-old male with a history of 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 evaluated for pneumonia. History was obtained from the chart as well as family members present at the time of the examination. The patient was not verbally responsive. He resides at home. Over the past 10 days he has had worsening shortness of breath and upper respiratory tract symptoms. He had been noted to have cough with respiratory secretions, rhinorrhea, sore throat, dyspnea and fever. He was treated empirically with Augmentin without significant improvement. He presented to the emergency room on March 09, 2019. A CAT scan of the chest was performed that showed patchy infiltrates in the right upper lobe as well as the posterior aspects of the lower lung segments bilaterally. The patient has a significant amount of oral secretions described as clear. No purulent sputum production. No reports of loss of consciousness or vomiting. He has a history of 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. No known ill contacts. No recent travel. He has not been recently hospitalized. PAST MEDICAL HISTORY: Positive for 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, parkinsonism, myasthenia gravis. ALLERGIES: None known. MEDICATIONS: Include Sinemet, Lexapro, Zithromax and ceftriaxone, albuterol, Lovenox. SOCIAL HISTORY: He lives at home. He is dependent in activities of daily living. No active tobacco or alcohol use. SYSTEMS REVIEW:Neurologic: As per HPI. Cardiac: Negative chest pain or palpitations. Respiratory: As per HPI. Gastrointestinal: Positive feeding gastrostomy. Genitourinary: Negative for urinary tract infection. LABORATORY DATA: White blood cell count 6.0, hematocrit 38.5, platelets 228. Creatinine 0.6. Cultures are pending. PHYSICAL EXAMINATION: General: He is awake and alert but nonverbal. His breathing is nonlabored. Vital Signs: Temperature 98.0, blood pressure 136/80, pulse 83 and regular, respirations 18/min. HEENT: Sclerae are anicteric. Heart Sounds: S1, S2. Lungs: Diminished breath sounds bilaterally. Abdomen: Soft. Feeding gastrostomy tube is in place. Extremities: Negative for edema. IMPRESSION: 1. Community-acquired versus atypical pneumonia. 2. Possible aspiration pneumonia. 3. Rule out sepsis secondary to lung source. 4. Supranuclear palsy. Obtain suction sputum, culture and sensitivity, urine Legionella and pneumococcal antigens. Await blood cultures. Continue with empiric antibiotic coverage on Zithromax and ceftriaxone. Inhaled bronchodilators. Intravenous corticosteroids. Discussed with family members present at the time of the examination. Thank you for the kind referral. ALBERTO HOFF M.D. [id number]
[2019-03-10] MEDS: methylPREDNISolone NA SUCC 40 MG/1 ML VIAL IVPUSH SCH ×2 (15:07→21:36)
[2019-03-10] MEDS ORDERED: FLU VACCINE QUAD 60 MCG/0.5 ML (MDV 19-20) IM ONE (15:42)
[2019-03-10] MEDS ORDERED: PNEUMOC 13-VAL CONJ-DIP CRM/PF 0.5 ML DISP.SYRIN IM ONE (15:45)
[2019-03-10 17:02] LABS: PH,URINE 8.5 (5.0-8.0); URINE APPEARANCE TURBID; URINE BILIRUBIN NEGATIVE (NEGATIVE); URINE COLOR YELLOW; URINE GLUCOSE (UA) NEGATIVE (NEGATIVE); URINE KETONE NEGATIVE (NEGATIVE); URINE LEUK ESTERASE NEGATIVE (NEGATIVE); URINE NITRITE NEGATIVE (NEGATIVE); URINE PROTEIN TRACE (NEGATIVE); URINE UROBILINOGEN 0.2 mg/dL (0.2-1.0)
--- NOTE | 2019-03-10 20:12 | CON.NEURO ---
Consult Consult Specialty:: Mckay Referred by:: ER - History of Present Illness History of Present Illness: 63 year sold man with PMH PSP On Sinment PEG tube Depression \Came in with weakness and cough Aspiration pneumonia was diagnosed No fall On wheelchair Advanced disease - History Source History Provided By: Family Member, Significant Other, Medical Record Limitations to Obtaining History: Clinical Condition - Alcohol/Substance Use Hx Alcohol Use: No - Smoking History Smoking history: Never smoked Have you smoked in the past 12 months: No Home Medications - Allergies Allergies/Adverse Reactions: Allergies Allergy/AdvReac Type Severity Reaction Status Date / Time No Known Allergies Allergy Verified 03/09/19 17:54 - Home Medications Home Medications: Ambulatory Orders Carbidopa/Levodopa 25/250 [Sinemet 25/250 -] 1 each PO ASDIR 01/19/17 Escitalopram Oxalate [Lexapro -] 10 mg PO DAILY 12/14/17 Doxazosin Mesylate 4 mg PO DAILY 03/09/19 Mirtazapine 15 mg PO DAILY 03/09/19 Family Medical History Family History: Unable to Obtain Physical Exam-Neuro Vital Signs: Vital Signs Temperature 98.1 F 03/10/19 18:00 Pulse Rate 98 H 03/10/19 18:00 Respiratory Rate 18 03/10/19 18:00 Blood Pressure 115/68 03/10/19 18:00 O2 Sat by Pulse Oximetry (%) 97 03/10/19 09:00 Labs: CBC, BMP 03/10/19 08:05 03/10/19 08:05 INR, PTT INR 1.13 (0.83-1.09) H 03/09/19 16:30 - Neuro Exam Level Of Consciousness: Yes: Alert, Oriented to Person Speech: Garbled Dominant Hand: Right Cranial Nerves II-XII Intact: Yes Gag: Present DTR's: 1+ Left Bicep, 1+ Right Bicep, 1+ Left Brachioradialis, 1+ Right Brachioradialis Response to light touch: Normal Response to pain prick: Normal Response to temperature: Normal Movement Disorders: Involuntary Movements, Spasticity, Tremors Motor Strength: 3/5: Left Arm, Right Arm, Left Leg, Right Leg Gait: Deferred Problem List - Problems (1) Supranuclear palsy Assessment/Plan: 1. Fall precautions 2 .Aspiration precautions 3. Sinement the same 4. PT 5. Speech eval 6. Trazadone at bedtime Thank you for the kind referral Mago Bashir MD Code(s): G23.1 - PROGRESSIVE SUPRANUCLEAR OPHTHALMOPLEGIA
[2019-03-10] MEDS: MIRTAZAPINE 15 MG TABLET (FP) PEG SCH (21:36)
[2019-03-10] MEDS: traZODone HCL 50 MG TABLET (FP) PO SCH (21:36)
[2019-03-11] MEDS: SODIUM CHLORIDE 1,000 ML IV SCH ×2 (00:11→22:43)
[2019-03-11] MEDS: methylPREDNISolone NA SUCC 40 MG/1 ML VIAL IVPUSH SCH ×4 (02:29→21:34)
[2019-03-11] MEDS: ALBUTEROL SO4 0.083% IH SOL 2.5 MG/3 ML VIAL.NEB. NEB SCH ×4 (08:16→20:16)
[2019-03-11 08:28] LABS: HEMATOCRIT 40.8 % (35.4-49); HEMOGLOBIN 14.2 GM/dL (11.7-16.9); MCH 32.6 pg (25.7-33.7); MCHC 34.8 g/dl (32.0-35.9); MEAN CELL VOLUME 93.6 fl (80-96); MEAN PLT VOLUME 8.8 fl (7.5-11.1); PLATELET COUNT 244 K/MM3 (134-434); RBC 4.36 M/mm3 (4.00-5.60); WHITE BLOOD COUNT 8.5 K/mm3 (4.0-10.0)
[2019-03-11 09:10] LABS: ALBUMIN 3.4 g/dl (3.4-5.0); BILIRUBIN,TOTAL 1.4 mg/dL (0.2-1); BLOOD UREA NITROGEN 18.4 mg/dL (7-18); CREATININE 0.7 mg/dL (0.55-1.3); TOT PROT 7.1 g/dl (6.4-8.2)
[2019-03-11] MEDS ORDERED: PT OWN MED DRAWER 7, Y5N ONE (10:18)
[2019-03-11] MEDS: ENOXAPARIN NA (PORCINE) 40 MG/0.4 ML DISP.SYRIN SQ SCH (10:42)
[2019-03-11] MEDS: AZITHROMYCIN IVPB 250 MG in DEXTROSE 5%-WATER - 250 ML IVPB SCH (10:42)
[2019-03-11] MEDS: CARBIDOPA/LEVODOPA 25/250 TABLET (FP) PEG SCH ×4 (10:42→21:34)
[2019-03-11] MEDS: DOXAZOSIN MESYLATE 4 MG TABLET PEG SCH (10:42)
--- NOTE | 2019-03-11 12:16 | CONSULT ---
Admitting History and Physical - Primary Care Physician PCP: Guillermo Bhakta - Admission History of Present Illness: 63 year old male with a past medical history of 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 and BPH who presents for evaluation of dyspnea associated with fever, cough, and congestion for the past 10 days despite taking oral Augmentin for [address] scan of chest demonstrated bilateral infiltrates. Per Neurology- PSP On Sinemet PEG tube Depression \Came in with weakness and cough Aspiration pneumonia was diagnosed No fall On wheelchair Advanced disease Pt is a full code. Copious secretions unable to cough and protect airway. (-) gag. Pt has been NPO with PEG History Source: Family Member, Medical Record Limitations to Obtaining History: Clinical Condition - Smoking History Smoking history: Never smoked Have you smoked in the past 12 months: No - Alcohol/Substance Use Hx Alcohol Use: No History - Admission Reason For Visit: PNEUMONIA - Diagnostics X-ray: Report Reviewed Modified Barium Swallow: Report Reviewed (2014 [facility] [place]ing was functional at that time) - General Mental Status: Awake and Alert, Able to Follow Commands Attention: Intact Ability to Follow Directions: Good Head/Neck Control: Needs Assist - Hearing Hearing: Normal Speech Evaluation - Communication Primary Language: LEBANESE Communication: Yes: Dysarthria Oral Expression Ability: Yes: Moderate Impairment - Speech Production Able to Make Needs Known: Yes: Moderately Impaired Intelligibility: Yes: Moderately Impaired - Speech Characteristics Voice Loudness: Normal Voice Pitch: Yes: Mildly Low Voice Phonatory-based Quality: Yes: Harsh, Vocal Wetness (intermittent) Speech Pattern: Impaired Speech Clarity: < 50% Articulation: Yes: Imprecise - Language/Auditory Comprehension Follows: Yes: 1 Stage Simple Commands Observation: Able to respond to yes/no queries: Yes, Yes/No Confusion: No - Language/Verbal Expression Functional Communication Status: Yes: Moderately Impaired - Swallow Evaluation/Bedside Assessment Current Nutritional Intake: NPO, G Tube Oral Secretions: Yes: Copious Secretions (suctioned, (-) gag. Impaired airway protection.) Dentition: Yes: Adequate Jaw Position: Open at Rest Against Resistance Opening: Weak Against Resistance Closing: Weak Pucker Lips: Weak Smile: Weak Lingual Speed of Movement: Reduced Lingual Movement Strgth Against Opposition: Reduced Velopharyngeal Movement: Reduced Elevation Laryngeal Elevation: Impaired Laryngeal Movement: Reduced Excursion, Labored,delay initiation, Reduced Velocity Recommendations - Speech Evaluation, Impression/Plan Impression: Unfortunate 63 yo with PSP. Likely aspirating on secretions.Dysarthric. Visually impaired with very limited visual lateralization /no up/down motion. Able to swallow, although quite weakly, upon command. Unable to cough. Able to touch my hand upon command. - Dysphagia Impressions/Plan Swallowing Skills: Impaired Dysphagia Impressions: Moderate Impairment, Suspect Aspiration *Silent aspiration: cannot be R/O at bedside Dysphagia Treatment Plan: Other (Speech/swallow tx via homecare for improved communication, and maintainance oral/laryngeal function.) Recommendations: Palliative Care (Pt is a full code.), Other (Referral to [facility] as out pt for Augmentative Communication device to maximize/ maintain ability to communicate. Consider suction machine in home/ possibly in exsufflator/Respironics cough assist to maintain clear airway. Consider medication such as Scopalamine patch, if not medically contraindicated, for secretion mgmt if copious. HOB elevation at all times, especially during feedings. Mouth care.) - Recommendations Liquids: NPO
[2019-03-11] MEDS: CEFTRIAXONE 500 MG in DEXTROSE 5%-WATER - 50 ML IVPB SCH (12:30)
--- NOTE | 2019-03-11 12:52 | PN ---
Progress Note, Physician Chief Complaint: PULMONARY AWAKE,-RESP DISTRESS,+ COUGH - Current Medication List Current Medications: Active Medications Albuterol Sulfate (Ventolin 0.083% Nebulizer Soln -) 1 amp NEB RQID [facility] Last Admin: 03/11/19 12:33 Dose: 1 amp Carbidopa/Levodopa (Sinemet 25/250 -) 1 each PEG QID [facility] Last Admin: 03/11/19 10:42 Dose: 1 each Doxazosin Mesylate (Cardura -) 4 mg PEG DAILY [facility] Last Admin: 03/11/19 10:42 Dose: 4 mg Enoxaparin Sodium (Lovenox -) 40 mg SQ DAILY [facility] Last Admin: 03/11/19 10:42 Dose: 40 mg Azithromycin 250 mg/ Dextrose 250 mls @ 250 mls/hr IVPB DAILY [facility] Last Admin: 03/11/19 10:42 Dose: 250 mls/hr Ceftriaxone Sodium 500 mg/ (Dextrose) 50 mls @ 100 mls/hr IVPB DAILY [facility]; Protocol Last Admin: 03/10/19 11:30 Dose: 100 mls/hr Sodium Chloride (Normal Saline -) 1,000 mls @ 60 mls/hr IV ASDIR [facility] Last Admin: 03/11/19 00:11 Dose: 60 mls/hr Methylprednisolone Sodium Succinate (Solu-Medrol -) 40 mg IVPUSH Q6H-IV [facility] Last Admin: 03/11/19 09:06 Dose: 40 mg Mirtazapine (Remeron -) 15 mg PEG HS [facility] Last Admin: 03/10/19 21:36 Dose: 15 mg Trazodone HCl (Desyrel -) 25 mg PO HS [facility] Last Admin: 03/10/19 21:36 Dose: 25 mg - Objective Vital Signs: Vital Signs Temperature 98.2 F 03/11/19 06:00 Pulse Rate 90 03/11/19 06:00 Respiratory Rate 18 03/11/19 06:00 Blood Pressure 138/83 03/11/19 06:00 O2 Sat by Pulse Oximetry (%) 95 03/10/19 21:00 Constitutional: Yes: Calm, Thin Eyes: Yes: WNL HENT: Yes: WNL Neck: Yes: WNL Cardiovascular: Yes: Regular Rate and Rhythm, S1, S2 Respiratory: Yes: Rhonchi (FEW SCATTERED RHONCHI) Gastrointestinal: Yes: Normal Bowel Sounds, Soft Extremities: Yes: WNL Edema: No Labs: CBC, BMP 03/11/19 06:30 03/11/19 06:30 INR, PTT INR 1.13 (0.83-1.09) H 03/09/19 16:30 Assessment/Plan Problem List - Problems (1) Supranuclear palsy Code(s): G23.1 - PROGRESSIVE SUPRANUCLEAR OPHTHALMOPLEGIA (2) Pneumonia Code(s): J18.9 - PNEUMONIA, UNSPECIFIED ORGANISM (3) Cough Code(s): R05 - COUGH Assessment/Plan Rocpehin/Zithromax O2 as needed BD TX Short course of steroids Chest PT Aspiration precautions VTE prophylaxis DR REED
--- NOTE | 2019-03-11 15:55 | PN ---
Progress Note, Physician Chief Complaint: Pneumonia SOB History of Present Illness: Previous notes and events reviewed awake and alert NAD no acute events overnight afebrile no leukocytosis - Current Medication List Current Medications: Active Medications Albuterol Sulfate (Ventolin 0.083% Nebulizer Soln -) 1 amp NEB RQID [facility] Last Admin: 03/11/19 12:33 Dose: 1 amp Carbidopa/Levodopa (Sinemet 25/250 -) 1 each PEG QID [facility] Last Admin: 03/11/19 13:32 Dose: 1 each Doxazosin Mesylate (Cardura -) 4 mg PEG DAILY [facility] Last Admin: 03/11/19 10:42 Dose: 4 mg Enoxaparin Sodium (Lovenox -) 40 mg SQ DAILY [facility] Last Admin: 03/11/19 10:42 Dose: 40 mg Azithromycin 250 mg/ Dextrose 250 mls @ 250 mls/hr IVPB DAILY [facility] Last Admin: 03/11/19 10:42 Dose: 250 mls/hr Ceftriaxone Sodium 500 mg/ (Dextrose) 50 mls @ 100 mls/hr IVPB DAILY [facility]; Protocol Last Admin: 03/11/19 12:30 Dose: 100 mls/hr Sodium Chloride (Normal Saline -) 1,000 mls @ 60 mls/hr IV ASDIR [facility] Last Admin: 03/11/19 00:11 Dose: 60 mls/hr Methylprednisolone Sodium Succinate (Solu-Medrol -) 40 mg IVPUSH Q6H-IV [facility] Last Admin: 03/11/19 15:08 Dose: 40 mg Mirtazapine (Remeron -) 15 mg PEG HS [facility] Last Admin: 03/10/19 21:36 Dose: 15 mg Trazodone HCl (Desyrel -) 25 mg PO HS [facility] Last Admin: 03/10/19 21:36 Dose: 25 mg - Objective Vital Signs: Vital Signs Temperature 97.9 F 03/11/19 14:00 Pulse Rate 106 H 03/11/19 14:00 Respiratory Rate 18 03/11/19 14:00 Blood Pressure 122/69 03/11/19 14:00 O2 Sat by Pulse Oximetry (%) 95 03/10/19 21:00 Constitutional: Yes: No Distress, Calm Eyes: Yes: Conjunctiva Clear HENT: Yes: Atraumatic Cardiovascular: Yes: Regular Rate and Rhythm Respiratory: Yes: Regular, Cough, On Nasal O2, Rhonchi Gastrointestinal: Yes: Normal Bowel Sounds, Soft, Other (G tube) Genitourinary: Yes: Incontinence Musculoskeletal: Yes: Muscle Weakness Extremities: Yes: WNL Edema: No Neurological: Yes: Alert, Pre-Existing Deficit Psychiatric: Yes: Alert Labs: CBC, BMP 03/11/19 06:30 03/11/19 06:30 INR, PTT INR 1.13 (0.83-1.09) H 03/09/19 16:30 Microbiology 03/10/19 14:50 Sputum - Oropharynx Suctioned Sputum Gram Stain - Final 03/09/19 16:30 Blood - Peripheral Venous Blood Culture - Preliminary NO GROWTH OBTAINED AFTER 24 HOURS, INCUBATION TO CONTINUE FOR 4 DAYS. 03/09/19 16:30 Blood - Peripheral Venous Blood Culture - Preliminary NO GROWTH OBTAINED AFTER 24 HOURS, INCUBATION TO CONTINUE FOR 4 DAYS. Problem List - Problems (1) Pneumonia Assessment/Plan: -ID and Pulm on board -Ceftriaxone, Azithromycin -afebrile -Bronchodilators -keep SpO2 >90% -O2 via NC -IV Medrol -Chest CT scan shows small patchy bilateral pulmonary infiltrates Code(s): J18.9 - PNEUMONIA, UNSPECIFIED ORGANISM (2) Supranuclear palsy Assessment/Plan: -Neurology on board -Sinemet -Aspiration Precaution -ACCESS MANAGER on board Code(s): G23.1 - PROGRESSIVE SUPRANUCLEAR OPHTHALMOPLEGIA (3) BPH (benign prostatic hyperplasia) Assessment/Plan: -Doxazosin Code(s): N40.0 - BENIGN PROSTATIC HYPERPLASIA WITHOUT LOWER URINRY TRACT SYMP (4) Pericardial effusion Assessment/Plan: -Chest CT scan shows very small pericardial effusion without obvious interval change Code(s): I31.3 - PERICARDIAL EFFUSION (NONINFLAMMATORY) Assessment/Plan see problem list dvt ppx
--- NOTE | 2019-03-11 16:04 | PN ---
Progress Note, Physician History of Present Illness: events noted Chart reviewed Slept better on the trazodone Still confused Difficulty expressing himself Evaluated by the swallowing pathologist - Current Medication List Current Medications: Active Medications Albuterol Sulfate (Ventolin 0.083% Nebulizer Soln -) 1 amp NEB RQID [facility] Last Admin: 03/11/19 12:33 Dose: 1 amp Carbidopa/Levodopa (Sinemet 25/250 -) 1 each PEG QID [facility] Last Admin: 03/11/19 13:32 Dose: 1 each Doxazosin Mesylate (Cardura -) 4 mg PEG DAILY [facility] Last Admin: 03/11/19 10:42 Dose: 4 mg Enoxaparin Sodium (Lovenox -) 40 mg SQ DAILY [facility] Last Admin: 03/11/19 10:42 Dose: 40 mg Azithromycin 250 mg/ Dextrose 250 mls @ 250 mls/hr IVPB DAILY [facility] Last Admin: 03/11/19 10:42 Dose: 250 mls/hr Ceftriaxone Sodium 500 mg/ (Dextrose) 50 mls @ 100 mls/hr IVPB DAILY [facility]; Protocol Last Admin: 03/11/19 12:30 Dose: 100 mls/hr Sodium Chloride (Normal Saline -) 1,000 mls @ 60 mls/hr IV ASDIR [facility] Last Admin: 03/11/19 00:11 Dose: 60 mls/hr Methylprednisolone Sodium Succinate (Solu-Medrol -) 40 mg IVPUSH Q6H-IV [facility] Last Admin: 03/11/19 15:08 Dose: 40 mg Mirtazapine (Remeron -) 15 mg PEG HS [facility] Last Admin: 03/10/19 21:36 Dose: 15 mg Trazodone HCl (Desyrel -) 25 mg PO HS [facility] Last Admin: 03/10/19 21:36 Dose: 25 mg - Objective Vital Signs: Vital Signs Temperature 97.9 F 03/11/19 14:00 Pulse Rate 106 H 03/11/19 14:00 Respiratory Rate 18 03/11/19 14:00 Blood Pressure 122/69 03/11/19 14:00 O2 Sat by Pulse Oximetry (%) 95 03/10/19 21:00 Constitutional: Yes: Well Nourished Eyes: Yes: WNL HENT: Yes: WNL Neurological: Yes: Alert, Oriented, Babinski positive ...Motor Strength: WNL Labs: CBC, BMP 03/11/19 06:30 03/11/19 06:30 INR, PTT INR 1.13 (0.83-1.09) H 03/09/19 16:30 Problem List - Problems (1) Supranuclear palsy Assessment/Plan: nfortunately the very atypical Parkinson's disease syndrome there is no specific treatment for carbidopa with very limited success Continue carbidopa the same Aspiration precautions Follow up with infectious disease specialist on the respiratory therapy director Chest PT Discharge planning Code(s): G23.1 - PROGRESSIVE SUPRANUCLEAR OPHTHALMOPLEGIA
--- NOTE | 2019-03-11 17:19 | PN ---
Progress Note, Physician History of Present Illness: CONGESTED BREATHING NON-LABORED UNABLE TO OFFER COMPLAINTS AFEBRILE WBC WNL BC (-) - Current Medication List Current Medications: Active Medications Albuterol Sulfate (Ventolin 0.083% Nebulizer Soln -) 1 amp NEB RQID [facility] Last Admin: 03/11/19 16:45 Dose: 1 amp Carbidopa/Levodopa (Sinemet 25/250 -) 1 each PEG QID [facility] Last Admin: 03/11/19 13:32 Dose: 1 each Doxazosin Mesylate (Cardura -) 4 mg PEG DAILY [facility] Last Admin: 03/11/19 10:42 Dose: 4 mg Enoxaparin Sodium (Lovenox -) 40 mg SQ DAILY [facility] Last Admin: 03/11/19 10:42 Dose: 40 mg Azithromycin 250 mg/ Dextrose 250 mls @ 250 mls/hr IVPB DAILY [facility] Last Admin: 03/11/19 10:42 Dose: 250 mls/hr Ceftriaxone Sodium 500 mg/ (Dextrose) 50 mls @ 100 mls/hr IVPB DAILY [facility]; Protocol Last Admin: 03/11/19 12:30 Dose: 100 mls/hr Sodium Chloride (Normal Saline -) 1,000 mls @ 60 mls/hr IV ASDIR [facility] Last Admin: 03/11/19 00:11 Dose: 60 mls/hr Methylprednisolone Sodium Succinate (Solu-Medrol -) 40 mg IVPUSH Q6H-IV [facility] Last Admin: 03/11/19 15:08 Dose: 40 mg Mirtazapine (Remeron -) 15 mg PEG HS [facility] Last Admin: 03/10/19 21:36 Dose: 15 mg Trazodone HCl (Desyrel -) 25 mg PO HS [facility] Last Admin: 03/10/19 21:36 Dose: 25 mg - Objective Vital Signs: Vital Signs Temperature 97.9 F 03/11/19 14:00 Pulse Rate 106 H 03/11/19 14:00 Respiratory Rate 18 03/11/19 14:00 Blood Pressure 122/69 03/11/19 14:00 O2 Sat by Pulse Oximetry (%) 95 03/10/19 21:00 Constitutional: Yes: No Distress Cardiovascular: Yes: Regular Rate and Rhythm, S1, S2 Respiratory: Yes: Rhonchi Gastrointestinal: Yes: Normal Bowel Sounds, Soft. No: Tenderness Edema: No Labs: CBC, BMP 03/11/19 06:30 03/11/19 06:30 INR, PTT INR 1.13 (0.83-1.09) H 03/09/19 16:30 Assessment/Plan COMMUNITY ACQ/ ATYPICAL VS. ASPIRATION PNEUMONIA SUPRANUCLEAR PALSY AWAIT C/S CONTINUE ZITHROMAX/ CEFTRIAXONE ASP PRECAUTIONS
[2019-03-11] MEDS: traZODone HCL 50 MG TABLET (FP) PO SCH (21:34)
[2019-03-11] MEDS: MIRTAZAPINE 15 MG TABLET (FP) PEG SCH (21:34)
[2019-03-12] MEDS: methylPREDNISolone NA SUCC 40 MG/1 ML VIAL IVPUSH SCH ×4 (03:08→20:53)
[2019-03-12] MEDS: SODIUM CHLORIDE 1,000 ML IV SCH ×2 (03:09→22:59)
[2019-03-12] MEDS: ALBUTEROL SO4 0.083% IH SOL 2.5 MG/3 ML VIAL.NEB. NEB SCH ×4 (07:30→20:09)
[2019-03-12 08:38] LABS: HEMATOCRIT 36.8 % (35.4-49); HEMOGLOBIN 12.9 GM/dL (11.7-16.9); MCH 32.7 pg (25.7-33.7); MCHC 35.2 g/dl (32.0-35.9); MEAN CELL VOLUME 92.9 fl (80-96); PLATELET COUNT 241 K/MM3 (134-434); RBC 3.95 M/mm3 (4.00-5.60); RDW 13.3 % (11.9-15.9); WHITE BLOOD COUNT 10.6 K/mm3 (4.0-10.0)
[2019-03-12 09:11] LABS: ALBUMIN 3.2 g/dl (3.4-5.0); BILIRUBIN,TOTAL 0.9 mg/dL (0.2-1); CALCIUM 8.7 mg/dL (8.5-10.1); CREATININE 0.8 mg/dL (0.55-1.3); TOT PROT 6.5 g/dl (6.4-8.2)
[2019-03-12] MEDS: CARBIDOPA/LEVODOPA 25/250 TABLET (FP) PEG SCH ×4 (10:00→22:58)
[2019-03-12] MEDS: DOXAZOSIN MESYLATE 4 MG TABLET PEG SCH (10:00)
[2019-03-12] MEDS: AZITHROMYCIN IVPB 250 MG in DEXTROSE 5%-WATER - 250 ML IVPB SCH (10:00)
[2019-03-12] MEDS: CEFTRIAXONE 500 MG in DEXTROSE 5%-WATER - 50 ML IVPB SCH (10:00)
[2019-03-12] MEDS: ENOXAPARIN NA (PORCINE) 40 MG/0.4 ML DISP.SYRIN SQ SCH (10:00)
--- NOTE | 2019-03-12 11:49 | PN ---
Progress Note, Physician - Current Medication List Current Medications: Active Medications Albuterol Sulfate (Ventolin 0.083% Nebulizer Soln -) 1 amp NEB RQID [facility] Last Admin: 03/12/19 07:30 Dose: 1 amp Carbidopa/Levodopa (Sinemet 25/250 -) 1 each PEG QID [facility] Last Admin: 03/12/19 10:00 Dose: 1 each Doxazosin Mesylate (Cardura -) 4 mg PEG DAILY [facility] Last Admin: 03/12/19 10:00 Dose: 4 mg Enoxaparin Sodium (Lovenox -) 40 mg SQ DAILY [facility] Last Admin: 03/12/19 10:00 Dose: 40 mg Azithromycin 250 mg/ Dextrose 250 mls @ 250 mls/hr IVPB DAILY [facility] Last Admin: 03/12/19 10:00 Dose: 250 mls/hr Ceftriaxone Sodium 500 mg/ (Dextrose) 50 mls @ 100 mls/hr IVPB DAILY [facility]; Protocol Last Admin: 03/12/19 10:00 Dose: 100 mls/hr Sodium Chloride (Normal Saline -) 1,000 mls @ 60 mls/hr IV ASDIR [facility] Last Admin: 03/12/19 03:09 Dose: Not Given Methylprednisolone Sodium Succinate (Solu-Medrol -) 40 mg IVPUSH Q6H-IV [facility] Last Admin: 03/12/19 09:53 Dose: 40 mg Mirtazapine (Remeron -) 15 mg PEG HS [facility] Last Admin: 03/11/19 21:34 Dose: 15 mg Trazodone HCl (Desyrel -) 25 mg PO HS [facility] Last Admin: 03/11/19 21:34 Dose: 25 mg - Objective Vital Signs: Vital Signs Temperature 97.7 F 03/12/19 06:00 Pulse Rate 89 03/12/19 06:00 Respiratory Rate 20 03/12/19 06:00 Blood Pressure 130/75 03/12/19 06:00 O2 Sat by Pulse Oximetry (%) 95 03/11/19 21:00 Cardiovascular: Yes: S1, S2 Respiratory: Yes: Diminished, Rhonchi Gastrointestinal: Yes: Normal Bowel Sounds, Soft Labs: CBC, BMP 03/12/19 07:00 03/12/19 07:00 INR, PTT INR 1.13 (0.83-1.09) H 03/09/19 16:30 Assessment/Plan - Problems (1) Pneumonia Assessment/Plan: -ID and Pulm on board -Ceftriaxone, Azithromycin -afebrile -Bronchodilators -keep SpO2 >90% -O2 via NC -IV Medrol -Chest CT scan shows small patchy bilateral pulmonary infiltrates Code(s): J18.9 - PNEUMONIA, UNSPECIFIED ORGANISM (2) Supranuclear palsy Assessment/Plan: -Neurology on board -Sinemet -Aspiration Precaution -WOODWORK TEACHER on board Code(s): G23.1 - PROGRESSIVE SUPRANUCLEAR OPHTHALMOPLEGIA (3) BPH (benign prostatic hyperplasia) Assessment/Plan: -Doxazosin Code(s): N40.0 - BENIGN PROSTATIC HYPERPLASIA WITHOUT LOWER URINRY TRACT SYMP (4) Pericardial effusion Assessment/Plan: -Chest CT scan shows very small pericardial effusion without obvious interval change Code(s): I31.3 - PERICARDIAL EFFUSION (NONINFLAMMATORY)
--- NOTE | 2019-03-12 12:28 | PN ---
Progress Note, Physician History of Present Illness: pulmonary awake,less congested,-resp distress - Current Medication List Current Medications: Active Medications Albuterol Sulfate (Ventolin 0.083% Nebulizer Soln -) 1 amp NEB RQID [facility] Last Admin: 03/12/19 11:25 Dose: 1 amp Carbidopa/Levodopa (Sinemet 25/250 -) 1 each PEG QID [facility] Last Admin: 03/12/19 10:00 Dose: 1 each Doxazosin Mesylate (Cardura -) 4 mg PEG DAILY [facility] Last Admin: 03/12/19 10:00 Dose: 4 mg Enoxaparin Sodium (Lovenox -) 40 mg SQ DAILY [facility] Last Admin: 03/12/19 10:00 Dose: 40 mg Azithromycin 250 mg/ Dextrose 250 mls @ 250 mls/hr IVPB DAILY [facility] Last Admin: 03/12/19 10:00 Dose: 250 mls/hr Ceftriaxone Sodium 500 mg/ (Dextrose) 50 mls @ 100 mls/hr IVPB DAILY [facility]; Protocol Last Admin: 03/12/19 10:00 Dose: 100 mls/hr Sodium Chloride (Normal Saline -) 1,000 mls @ 60 mls/hr IV ASDIR [facility] Last Admin: 03/12/19 03:09 Dose: Not Given Methylprednisolone Sodium Succinate (Solu-Medrol -) 40 mg IVPUSH Q6H-IV [facility] Last Admin: 03/12/19 09:53 Dose: 40 mg Mirtazapine (Remeron -) 15 mg PEG HS [facility] Last Admin: 03/11/19 21:34 Dose: 15 mg Trazodone HCl (Desyrel -) 25 mg PO HS [facility] Last Admin: 03/11/19 21:34 Dose: 25 mg - Objective Vital Signs: Vital Signs Temperature 97.7 F 03/12/19 06:00 Pulse Rate 89 03/12/19 06:00 Respiratory Rate 20 03/12/19 06:00 Blood Pressure 130/75 03/12/19 06:00 O2 Sat by Pulse Oximetry (%) 95 03/11/19 21:00 Constitutional: Yes: Calm, Thin Eyes: Yes: WNL HENT: Yes: WNL Neck: Yes: WNL Cardiovascular: Yes: Regular Rate and Rhythm, S1, S2 Respiratory: Yes: Rhonchi (few scattered rhonchi) Gastrointestinal: Yes: Normal Bowel Sounds, Soft Extremities: Yes: WNL Edema: No Labs: CBC, BMP 03/12/19 07:00 03/12/19 07:00 INR, PTT INR 1.13 (0.83-1.09) H 03/09/19 16:30 Assessment/Plan Problem List - Problems (1) Supranuclear palsy Code(s): G23.1 - PROGRESSIVE SUPRANUCLEAR OPHTHALMOPLEGIA (2) Pneumonia Code(s): J18.9 - PNEUMONIA, UNSPECIFIED ORGANISM (3) Cough Code(s): R05 - COUGH Assessment/Plan [place]/Zithromax O2 as needed BD TX Chest PT Aspiration precautions VTE prophylaxis Steroid taper DR REED
[2019-03-12] MEDS: MIRTAZAPINE 15 MG TABLET (FP) PEG SCH (22:58)
[2019-03-12] MEDS: traZODone HCL 50 MG TABLET (FP) PO SCH (22:58)
[2019-03-13] MEDS: SODIUM CHLORIDE 1,000 ML IV SCH (02:51)
[2019-03-13] MEDS: methylPREDNISolone NA SUCC 40 MG/1 ML VIAL IVPUSH SCH ×4 (02:54→21:34)
[2019-03-13] MEDS: ALBUTEROL SO4 0.083% IH SOL 2.5 MG/3 ML VIAL.NEB. NEB SCH ×4 (07:30→19:51)
[2019-03-13] MEDS ORDERED: PT OWN MED DRAWER 7, Y5N ONE (09:41)
[2019-03-13] MEDS: DOXAZOSIN MESYLATE 4 MG TABLET PEG SCH (09:58)
[2019-03-13] MEDS: CARBIDOPA/LEVODOPA 25/250 TABLET (FP) PEG SCH ×4 (09:58→22:23)
[2019-03-13] MEDS: ENOXAPARIN NA (PORCINE) 40 MG/0.4 ML DISP.SYRIN SQ SCH (09:59)
[2019-03-13] MEDS: CEFTRIAXONE 500 MG in DEXTROSE 5%-WATER - 50 ML IVPB SCH (11:14)
[2019-03-13] MEDS: AZITHROMYCIN IVPB 250 MG in DEXTROSE 5%-WATER - 250 ML IVPB SCH (11:15)
--- NOTE | 2019-03-13 11:22 | PN ---
Progress Note, Physician - Current Medication List Current Medications: Active Medications Albuterol Sulfate (Ventolin 0.083% Nebulizer Soln -) 1 amp NEB RQID [facility] Last Admin: 03/13/19 07:30 Dose: 1 amp Carbidopa/Levodopa (Sinemet 25/250 -) 1 each PEG QID [facility] Last Admin: 03/13/19 09:58 Dose: 1 each Doxazosin Mesylate (Cardura -) 4 mg PEG DAILY [facility] Last Admin: 03/13/19 09:58 Dose: 4 mg Enoxaparin Sodium (Lovenox -) 40 mg SQ DAILY [facility] Last Admin: 03/13/19 09:59 Dose: 40 mg Azithromycin 250 mg/ Dextrose 250 mls @ 250 mls/hr IVPB DAILY [facility] Last Admin: 03/13/19 11:15 Dose: 250 mls/hr Ceftriaxone Sodium 500 mg/ (Dextrose) 50 mls @ 100 mls/hr IVPB DAILY [facility]; Protocol Last Admin: 03/13/19 11:14 Dose: 100 mls/hr Sodium Chloride (Normal Saline -) 1,000 mls @ 60 mls/hr IV ASDIR [facility] Last Admin: 03/13/19 02:51 Dose: Not Given Methylprednisolone Sodium Succinate (Solu-Medrol -) 40 mg IVPUSH Q6H-IV [facility] Last Admin: 03/13/19 09:58 Dose: 40 mg Mirtazapine (Remeron -) 15 mg PEG HS [facility] Last Admin: 03/12/19 22:58 Dose: 15 mg Trazodone HCl (Desyrel -) 25 mg PO HS [facility] Last Admin: 03/12/19 22:58 Dose: 25 mg - Objective Vital Signs: Vital Signs Temperature 97.7 F 03/13/19 10:15 Pulse Rate 81 03/13/19 10:15 Respiratory Rate 18 03/13/19 10:15 Blood Pressure 126/77 03/13/19 10:15 O2 Sat by Pulse Oximetry (%) 97 03/12/19 21:00 Cardiovascular: Yes: S1, S2 Respiratory: Yes: Diminished, Rhonchi Gastrointestinal: Yes: Normal Bowel Sounds, Soft Labs: CBC, BMP 03/12/19 07:00 03/12/19 07:00 INR, PTT INR 1.13 (0.83-1.09) H 03/09/19 16:30 Assessment/Plan - Problems (1) Pneumonia Assessment/Plan: -ID and Pulm on board -Ceftriaxone, Azithromycin -afebrile -Bronchodilators -keep SpO2 >90% -O2 via NC -IV Medrol -Chest CT scan shows small patchy bilateral pulmonary infiltrates--follow up cxr Code(s): J18.9 - PNEUMONIA, UNSPECIFIED ORGANISM (2) Supranuclear palsy Assessment/Plan: -Neurology on board -Sinemet -Aspiration Precaution -SALES REPRESENTATIVE GROCERIES on board Code(s): G23.1 - PROGRESSIVE SUPRANUCLEAR OPHTHALMOPLEGIA (3) BPH (benign prostatic hyperplasia) Assessment/Plan: -Doxazosin Code(s): N40.0 - BENIGN PROSTATIC HYPERPLASIA WITHOUT LOWER URINRY TRACT SYMP (4) Pericardial effusion Assessment/Plan: -Chest CT scan shows very small pericardial effusion without obvious interval change Code(s): I31.3 - PERICARDIAL EFFUSION (NONINFLAMMATORY)
--- NOTE | 2019-03-13 11:24 | PN ---
Progress Note, Physician History of Present Illness: seen at the bedside No family available Alert awake oriented During suctioning himself on chest PT Lungs less congested Slept better with the trazodone - Current Medication List Current Medications: Active Medications Albuterol Sulfate (Ventolin 0.083% Nebulizer Soln -) 1 amp NEB RQID [facility] Last Admin: 03/13/19 07:30 Dose: 1 amp Carbidopa/Levodopa (Sinemet 25/250 -) 1 each PEG QID [facility] Last Admin: 03/13/19 09:58 Dose: 1 each Doxazosin Mesylate (Cardura -) 4 mg PEG DAILY [facility] Last Admin: 03/13/19 09:58 Dose: 4 mg Enoxaparin Sodium (Lovenox -) 40 mg SQ DAILY [facility] Last Admin: 03/13/19 09:59 Dose: 40 mg Azithromycin 250 mg/ Dextrose 250 mls @ 250 mls/hr IVPB DAILY [facility] Last Admin: 03/13/19 11:15 Dose: 250 mls/hr Ceftriaxone Sodium 500 mg/ (Dextrose) 50 mls @ 100 mls/hr IVPB DAILY [facility]; Protocol Last Admin: 03/13/19 11:14 Dose: 100 mls/hr Sodium Chloride (Normal Saline -) 1,000 mls @ 60 mls/hr IV ASDIR [facility] Last Admin: 03/13/19 02:51 Dose: Not Given Methylprednisolone Sodium Succinate (Solu-Medrol -) 40 mg IVPUSH Q6H-IV [facility] Last Admin: 03/13/19 09:58 Dose: 40 mg Mirtazapine (Remeron -) 15 mg PEG HS [facility] Last Admin: 03/12/19 22:58 Dose: 15 mg Trazodone HCl (Desyrel -) 25 mg PO HS [facility] Last Admin: 03/12/19 22:58 Dose: 25 mg - Objective Vital Signs: Vital Signs Temperature 97.7 F 03/13/19 10:15 Pulse Rate 81 03/13/19 10:15 Respiratory Rate 18 03/13/19 10:15 Blood Pressure 126/77 03/13/19 10:15 O2 Sat by Pulse Oximetry (%) 97 03/12/19 21:00 Constitutional: Yes: Well Nourished Eyes: Yes: WNL HENT: Yes: WNL Neurological: Yes: Alert, Oriented, Babinski positive ...Motor Strength: WNL Labs: CBC, BMP 03/12/19 07:00 03/12/19 07:00 INR, PTT INR 1.13 (0.83-1.09) H 03/09/19 16:30 Problem List - Problems (1) Supranuclear palsy Assessment/Plan: continue chest PT Aspiration precaution Out of bed to chair DVT prophylaxis Continue the combination of the Remeron/trazodone Code(s): G23.1 - PROGRESSIVE SUPRANUCLEAR OPHTHALMOPLEGIA
--- NOTE | 2019-03-13 12:17 | PN ---
Progress Note, Physician History of Present Illness: pulmonary awake,congested ,+ increased secretions - Current Medication List Current Medications: Active Medications Albuterol Sulfate (Ventolin 0.083% Nebulizer Soln -) 1 amp NEB RQID [facility] Last Admin: 03/13/19 11:32 Dose: 1 amp Carbidopa/Levodopa (Sinemet 25/250 -) 1 each PEG QID [facility] Last Admin: 03/13/19 09:58 Dose: 1 each Doxazosin Mesylate (Cardura -) 4 mg PEG DAILY [facility] Last Admin: 03/13/19 09:58 Dose: 4 mg Enoxaparin Sodium (Lovenox -) 40 mg SQ DAILY [facility] Last Admin: 03/13/19 09:59 Dose: 40 mg Azithromycin 250 mg/ Dextrose 250 mls @ 250 mls/hr IVPB DAILY [facility] Last Admin: 03/13/19 11:15 Dose: 250 mls/hr Ceftriaxone Sodium 500 mg/ (Dextrose) 50 mls @ 100 mls/hr IVPB DAILY [facility]; Protocol Last Admin: 03/13/19 11:14 Dose: 100 mls/hr Sodium Chloride (Normal Saline -) 1,000 mls @ 60 mls/hr IV ASDIR [facility] Last Admin: 03/13/19 02:51 Dose: Not Given Methylprednisolone Sodium Succinate (Solu-Medrol -) 40 mg IVPUSH Q6H-IV [facility] Last Admin: 03/13/19 09:58 Dose: 40 mg Mirtazapine (Remeron -) 15 mg PEG HS [facility] Last Admin: 03/12/19 22:58 Dose: 15 mg Trazodone HCl (Desyrel -) 25 mg PO HS [facility] Last Admin: 03/12/19 22:58 Dose: 25 mg - Objective Vital Signs: Vital Signs Temperature 97.7 F 03/13/19 10:15 Pulse Rate 81 03/13/19 10:15 Respiratory Rate 18 03/13/19 10:15 Blood Pressure 126/77 03/13/19 10:15 O2 Sat by Pulse Oximetry (%) 97 03/12/19 21:00 Constitutional: Yes: Calm, Thin Eyes: Yes: WNL HENT: Yes: WNL Neck: Yes: WNL Cardiovascular: Yes: Regular Rate and Rhythm, S1, S2 Respiratory: Yes: Rhonchi (bilateral rhonchi) Gastrointestinal: Yes: Normal Bowel Sounds, Soft Extremities: Yes: WNL Edema: No Labs: CBC, BMP - ....Imaging Chest X-ray: Image Reviewed Assessment/Plan Problem List - Problems (1) Supranuclear palsy Code(s): G23.1 - PROGRESSIVE SUPRANUCLEAR OPHTHALMOPLEGIA (2) Pneumonia Code(s): J18.9 - PNEUMONIA, UNSPECIFIED ORGANISM (3) Cough Code(s): R05 - COUGH Assessment/Plan Rocephin/Zithromax O2 as needed BD TX Chest PT Aspiration precautions VTE prophylaxis Steroid taper Scopalamine patch DR REED
--- NOTE | 2019-03-13 12:55 | PN ---
Progress Note, DIRECTOR OF ARCHITECTURE - Note Progress Note: Selected Entries 03/13/19 11:38 Breakfast NPO Laboratory Tests 03/11/19 03/12/19 06:30 07:00 WBC 8.5 10.6 H NPO. CXR -Patchy bilateral infiltrates Audible secretions, wet, gurgly vocal quality. Unable to cough and clear. Staff suctioning and pt self suctioning. Scopolamine patch ordered. I spoke with [facility] regarding Augmentative communication device, if pt will be stable enough to go as out pt. HOB at all times
[2019-03-13] MEDS: SCOPOLAMINE HYDROBROMIDE 1 PATCH PATCH.TD72 TD SCH (13:10)
[2019-03-13] MEDS: traZODone HCL 50 MG TABLET (FP) PO SCH (22:23)
[2019-03-13] MEDS: MIRTAZAPINE 15 MG TABLET (FP) PEG SCH (22:23)
[2019-03-14] MEDS: methylPREDNISolone NA SUCC 40 MG/1 ML VIAL IVPUSH SCH ×4 (02:48→21:12)
[2019-03-14] MEDS: SODIUM CHLORIDE 1,000 ML IV SCH (05:28)
[2019-03-14] MEDS: ALBUTEROL SO4 0.083% IH SOL 2.5 MG/3 ML VIAL.NEB. NEB SCH ×4 (08:05→21:15)
[2019-03-14] MEDS ORDERED: PT OWN MED DRAWER 7, Y5N ONE (09:24)
[2019-03-14] MEDS: CEFTRIAXONE 500 MG in DEXTROSE 5%-WATER - 50 ML IVPB SCH (09:47)
[2019-03-14] MEDS: DOXAZOSIN MESYLATE 4 MG TABLET PEG SCH (09:47)
[2019-03-14] MEDS: ENOXAPARIN NA (PORCINE) 40 MG/0.4 ML DISP.SYRIN SQ SCH (09:47)
[2019-03-14] MEDS: CARBIDOPA/LEVODOPA 25/250 TABLET (FP) PEG SCH ×4 (10:05→21:35)
[2019-03-14] MEDS: AZITHROMYCIN IVPB 250 MG in DEXTROSE 5%-WATER - 250 ML IVPB SCH (11:19)
--- NOTE | 2019-03-14 12:48 | PN ---
Progress Note (short form) - Note Progress Note: PULMONARY Family at bedside. Minimal cough. No fevers recorded. Vital Signs Period Temp Pulse Resp BP Sys/Villegas Pulse Ox Last 24 Hr 97.3 F-98.0 F 71-100 18-20 126-132/73-82 95-96 Gen: NAD at rest Heart: RRR Lung: scattered rhonchi Abd: soft, nontender Ext: no edema CBC, BMP 03/12/19 07:00 03/12/19 07:00 Active Medications Albuterol Sulfate (Ventolin 0.083% Nebulizer Soln -) 1 amp NEB RQID [facility] Last Admin: 03/14/19 11:25 Dose: 1 amp Carbidopa/Levodopa (Sinemet 25/250 -) 1 each PEG QID [facility] Last Admin: 03/14/19 10:05 Dose: 1 each Doxazosin Mesylate (Cardura -) 4 mg PEG DAILY [facility] Last Admin: 03/14/19 09:47 Dose: 4 mg Enoxaparin Sodium (Lovenox -) 40 mg SQ DAILY [facility] Last Admin: 03/14/19 09:47 Dose: 40 mg Azithromycin 250 mg/ Dextrose 250 mls @ 250 mls/hr IVPB DAILY [facility] Last Admin: 03/14/19 11:19 Dose: 250 mls/hr Ceftriaxone Sodium 500 mg/ (Dextrose) 50 mls @ 100 mls/hr IVPB DAILY [facility]; Protocol Last Admin: 03/14/19 09:47 Dose: 100 mls/hr Sodium Chloride (Normal Saline -) 1,000 mls @ 60 mls/hr IV ASDIR [facility] Last Admin: 03/14/19 05:28 Dose: Not Given Methylprednisolone Sodium Succinate (Solu-Medrol -) 40 mg IVPUSH Q6H-IV [facility] Last Admin: 03/14/19 09:47 Dose: 40 mg Mirtazapine (Remeron -) 15 mg PEG HS [facility] Last Admin: 03/13/19 22:23 Dose: 15 mg Scopolamine HBr (Transderm-Scop -) 1 patch TD Q72H [facility] Last Admin: 03/13/19 13:10 Dose: 1 patch Trazodone HCl (Desyrel -) 25 mg PO HS [facility] Last Admin: 03/13/19 22:23 Dose: 25 mg A/P Pneumonia likely Aspiration Supranuclear Palsy Depression/Anxiety - continue antibiotics per ID - aspiration precautions - O2 to keep SpO2 >90% - taper medrol - inhaled bronchodilators - DVT prophylaxis - when ready for discharge, check room air SpO2 to assess for home O2
[2019-03-14 13:11] VITALS: BMI 22.4
--- NOTE | 2019-03-14 15:42 | PN ---
Progress Note, Physician History of Present Illness: LESS CONGESTED BREATHING NON-LABORED UNABLE TO OFFER COMPLAINTS BUT INDICATES NO PAIN WHEN QUESTIONED AFEBRILE WBC WNL BC (-) - Current Medication List Current Medications: Active Medications Albuterol Sulfate (Ventolin 0.083% Nebulizer Soln -) 1 amp NEB RQID [facility] Last Admin: 03/14/19 11:25 Dose: 1 amp Carbidopa/Levodopa (Sinemet 25/250 -) 1 each PEG QID [facility] Last Admin: 03/14/19 15:05 Dose: 1 each Doxazosin Mesylate (Cardura -) 4 mg PEG DAILY [facility] Last Admin: 03/14/19 09:47 Dose: 4 mg Enoxaparin Sodium (Lovenox -) 40 mg SQ DAILY [facility] Last Admin: 03/14/19 09:47 Dose: 40 mg Azithromycin 250 mg/ Dextrose 250 mls @ 250 mls/hr IVPB DAILY [facility] Last Admin: 03/14/19 11:19 Dose: 250 mls/hr Ceftriaxone Sodium 500 mg/ (Dextrose) 50 mls @ 100 mls/hr IVPB DAILY [facility]; Protocol Last Admin: 03/14/19 09:47 Dose: 100 mls/hr Methylprednisolone Sodium Succinate (Solu-Medrol -) 40 mg IVPUSH Q6H-IV [facility] Last Admin: 03/14/19 15:05 Dose: 40 mg Mirtazapine (Remeron -) 15 mg PEG HS [facility] Last Admin: 03/13/19 22:23 Dose: 15 mg Scopolamine HBr (Transderm-Scop -) 1 patch TD Q72H [facility] Last Admin: 03/13/19 13:10 Dose: 1 patch Trazodone HCl (Desyrel -) 25 mg PO HS [facility] Last Admin: 03/13/19 22:23 Dose: 25 mg - Objective Vital Signs: Vital Signs Temperature 98.7 F 03/14/19 14:00 Pulse Rate 77 03/14/19 14:00 Respiratory Rate 20 03/14/19 14:00 Blood Pressure 118/77 03/14/19 14:00 O2 Sat by Pulse Oximetry (%) 95 03/14/19 09:00 Constitutional: Yes: No Distress Eyes: Yes: Conjunctiva Clear Cardiovascular: Yes: Regular Rate and Rhythm, S1, S2 Respiratory: Yes: Other (DECREASED RHONCHI BILAT) Gastrointestinal: Yes: Normal Bowel Sounds, Soft. No: Tenderness Edema: No Labs: CBC, BMP 03/12/19 07:00 03/12/19 07:00 INR, PTT INR 1.13 (0.83-1.09) H 03/09/19 16:30 Assessment/Plan COMMUNITY ACQ/ ATYPICAL VS. ASPIRATION PNEUMONIA SUPRANUCLEAR PALSY SPUTUM C/S NORMAL VINNY BC (-) CONTINUE ZITHROMAX/ CEFTRIAXONE X24H SWITCH TO CEFTIN 500MG PO BID X 7D IN AM ASP PRECAUTIONS
--- NOTE | 2019-03-14 16:28 | PN ---
Progress Note, Physician Chief Complaint: Pneumonia SOB History of Present Illness: Previous notes and events reviewed awake and alert NAD no acute events overnight afebrile - Current Medication List Current Medications: Active Medications Albuterol Sulfate (Ventolin 0.083% Nebulizer Soln -) 1 amp NEB RQID [facility] Last Admin: 03/14/19 16:26 Dose: 1 amp Carbidopa/Levodopa (Sinemet 25/250 -) 1 each PEG QID [facility] Last Admin: 03/14/19 15:05 Dose: 1 each Doxazosin Mesylate (Cardura -) 4 mg PEG DAILY [facility] Last Admin: 03/14/19 09:47 Dose: 4 mg Enoxaparin Sodium (Lovenox -) 40 mg SQ DAILY [facility] Last Admin: 03/14/19 09:47 Dose: 40 mg Azithromycin 250 mg/ Dextrose 250 mls @ 250 mls/hr IVPB DAILY [facility] Last Admin: 03/14/19 11:19 Dose: 250 mls/hr Ceftriaxone Sodium 500 mg/ (Dextrose) 50 mls @ 100 mls/hr IVPB DAILY [facility]; Protocol Last Admin: 03/14/19 09:47 Dose: 100 mls/hr Methylprednisolone Sodium Succinate (Solu-Medrol -) 40 mg IVPUSH Q6H-IV [facility] Last Admin: 03/14/19 15:05 Dose: 40 mg Mirtazapine (Remeron -) 15 mg PEG HS [facility] Last Admin: 03/13/19 22:23 Dose: 15 mg Scopolamine HBr (Transderm-Scop -) 1 patch TD Q72H [facility] Last Admin: 03/13/19 13:10 Dose: 1 patch Trazodone HCl (Desyrel -) 25 mg PO HS [facility] Last Admin: 03/13/19 22:23 Dose: 25 mg - Objective Vital Signs: Vital Signs Temperature 98.7 F 03/14/19 14:00 Pulse Rate 77 03/14/19 14:00 Respiratory Rate 20 03/14/19 14:00 Blood Pressure 118/77 03/14/19 14:00 O2 Sat by Pulse Oximetry (%) 95 03/14/19 09:00 Constitutional: Yes: No Distress, Calm Eyes: Yes: Conjunctiva Clear HENT: Yes: Atraumatic Cardiovascular: Yes: Regular Rate and Rhythm Respiratory: Yes: Regular, Diminished, On Nasal O2 Gastrointestinal: Yes: Normal Bowel Sounds, Soft, Other (G tube) Genitourinary: Yes: Incontinence Musculoskeletal: Yes: Muscle Weakness Extremities: Yes: WNL Edema: No Neurological: Yes: Alert, Pre-Existing Deficit Psychiatric: Yes: Alert Labs: CBC, BMP 03/12/19 07:00 03/12/19 07:00 INR, PTT INR 1.13 (0.83-1.09) H 03/09/19 16:30 Microbiology 03/09/19 16:30 Blood - Peripheral Venous Blood Culture - Final NO GROWTH AFTER 5 DAYS INCUBATION 03/09/19 16:30 Blood - Peripheral Venous Blood Culture - Final NO GROWTH AFTER 5 DAYS INCUBATION 03/10/19 14:50 Sputum - Oropharynx Suctioned Sputum Gram Stain - Final 03/10/19 14:50 Sputum - Oropharynx Suctioned Sputum Sputum Culture - Final NORMAL RESPIRATORY VINNY 03/10/19 20:30 Urine - Urine Clean Catch Urine Culture - Final NO GROWTH OBTAINED - ....Imaging Chest X-ray: Report Reviewed Problem List - Problems (1) Pneumonia Assessment/Plan: -ID and Pulm on board -Ceftriaxone, Azithromycin~~switch to Ceftin 500mg BID x 7d in AM -afebrile -Bronchodilators -keep SpO2 >90% -O2 via NC -IV Medrol -Chest CT scan shows small patchy bilateral pulmonary infiltrates -Repeat CXR shows subtle patchy infiltrates noted bilaterally -Scopalamine patch Code(s): J18.9 - PNEUMONIA, UNSPECIFIED ORGANISM (2) Supranuclear palsy Assessment/Plan: -Neurology on board -Sinemet -Aspiration Precaution -FAMILY LIFE EDUCATOR on board Code(s): G23.1 - PROGRESSIVE SUPRANUCLEAR OPHTHALMOPLEGIA (3) BPH (benign prostatic hyperplasia) Assessment/Plan: -Doxazosin Code(s): N40.0 - BENIGN PROSTATIC HYPERPLASIA WITHOUT LOWER URINRY TRACT SYMP (4) Pericardial effusion Assessment/Plan: -Chest CT scan shows very small pericardial effusion without obvious interval change Code(s): I31.3 - PERICARDIAL EFFUSION (NONINFLAMMATORY) Assessment/Plan see problem list dvt ppx change to PO antibiotics in AM then d/c home
[2019-03-14] MEDS: traZODone HCL 50 MG TABLET (FP) PO SCH (21:13)
[2019-03-14] MEDS: MIRTAZAPINE 15 MG TABLET (FP) PEG SCH (21:13)
[2019-03-15] MEDS: methylPREDNISolone NA SUCC 40 MG/1 ML VIAL IVPUSH SCH ×4 (02:54→21:35)
[2019-03-15] MEDS: ALBUTEROL SO4 0.083% IH SOL 2.5 MG/3 ML VIAL.NEB. NEB SCH ×5 (08:00→20:40)
[2019-03-15] MEDS ORDERED: PT OWN MED DRAWER 7, Y5N ONE (09:35)
[2019-03-15] MEDS: DOXAZOSIN MESYLATE 4 MG TABLET PEG SCH (09:54)
[2019-03-15] MEDS: ENOXAPARIN NA (PORCINE) 40 MG/0.4 ML DISP.SYRIN SQ SCH (09:54)
[2019-03-15] MEDS: CARBIDOPA/LEVODOPA 25/250 TABLET (FP) PEG SCH ×4 (09:54→21:36)
[2019-03-15] MEDS: CEFUROXIME AXETIL 500 MG TABLET PO SCH ×2 (09:54→21:35)
[2019-03-15 10:54] LABS: HEMATOCRIT 37.5 % (35.4-49); HEMOGLOBIN 12.9 GM/dL (11.7-16.9); MCH 32.2 pg (25.7-33.7); MCHC 34.4 g/dl (32.0-35.9); MEAN CELL VOLUME 93.6 fl (80-96); PLATELET COUNT 238 K/MM3 (134-434); RBC 4.01 M/mm3 (4.00-5.60); WHITE BLOOD COUNT 3.9 K/mm3 (4.0-10.0)
--- NOTE | 2019-03-15 11:06 | PN ---
Progress Note, Physician Chief Complaint: SOB Pneumonia History of Present Illness: NAD Scopolamine patch for secretions, working well Seen by Speech therapy able to follow simple commands was ambulatory with assistance at home - Current Medication List Current Medications: Active Medications Albuterol Sulfate (Ventolin 0.083% Nebulizer Soln -) 1 amp NEB RQID [facility] Last Admin: 03/15/19 10:16 Dose: 1 amp Carbidopa/Levodopa (Sinemet 25/250 -) 1 each PEG QID [facility] Last Admin: 03/15/19 09:54 Dose: 1 each Cefuroxime Axetil (Ceftin -) 500 mg PO BID [facility] Stop: 03/22/19 09:59 Last Admin: 03/15/19 09:54 Dose: 500 mg Doxazosin Mesylate (Cardura -) 4 mg PEG DAILY [facility] Last Admin: 03/15/19 09:54 Dose: 4 mg Enoxaparin Sodium (Lovenox -) 40 mg SQ DAILY [facility] Last Admin: 03/15/19 09:54 Dose: 40 mg Methylprednisolone Sodium Succinate (Solu-Medrol -) 40 mg IVPUSH Q6H-IV [facility] Last Admin: 03/15/19 09:20 Dose: 40 mg Mirtazapine (Remeron -) 15 mg PEG HS [facility] Last Admin: 03/14/19 21:13 Dose: 15 mg Scopolamine HBr (Transderm-Scop -) 1 patch TD Q72H [facility] Last Admin: 03/13/19 13:10 Dose: 1 patch Trazodone HCl (Desyrel -) 25 mg PO HS [facility] Last Admin: 03/14/19 21:13 Dose: 25 mg - Objective Vital Signs: Vital Signs Temperature 98 F 03/15/19 08:55 Pulse Rate 67 03/15/19 09:48 Respiratory Rate 20 03/15/19 09:48 Blood Pressure 126/72 03/15/19 09:48 O2 Sat by Pulse Oximetry (%) 96 03/14/19 21:00 Constitutional: Yes: Well Nourished, No Distress, Calm Cardiovascular: Yes: Regular Rate and Rhythm Respiratory: Yes: Regular Gastrointestinal: Yes: Normal Bowel Sounds, Soft Genitourinary: Yes: WNL Musculoskeletal: Yes: Muscle Weakness Extremities: Yes: WNL Edema: No Peripheral Pulses WNL: Yes Neurological: Yes: Alert, Confusion Psychiatric: Yes: Alert Labs: CBC, BMP 03/15/19 10:05 INR, PTT INR 1.13 (0.83-1.09) H 03/09/19 16:30 Problem List - Problems (1) Hyperthyroidism Assessment/Plan: -Methimazole 5 mg po daily -Endocrinology consult -Repeat thyroid fxn in 6-8 weeks Problems reviewed: Yes Code(s): E05.90 - THYROTOXICOSIS, UNSP WITHOUT THYROTOXIC CRISIS OR STORM Assessment/Plan (1) Pneumonia Assessment/Plan: -ID and Pulm on board -Ceftin 500mg BID x 7d in AM -afebrile -Bronchodilators -keep SpO2 >90% -O2 via NC -Changed to po prednisone tapering dose -Chest CT scan shows small patchy bilateral pulmonary infiltrates -Repeat CXR shows subtle patchy infiltrates noted bilaterally -Scopalamine patch Code(s): J18.9 - PNEUMONIA, UNSPECIFIED ORGANISM (2) Supranuclear palsy Assessment/Plan: -Neurology on board -Sinemet -Aspiration Precaution -KITCHEN CLEANER on board Code(s): G23.1 - PROGRESSIVE SUPRANUCLEAR OPHTHALMOPLEGIA (3) BPH (benign prostatic hyperplasia) Assessment/Plan: -Doxazosin Code(s): N40.0 - BENIGN PROSTATIC HYPERPLASIA WITHOUT LOWER URINRY TRACT SYMP (4) Pericardial effusion Assessment/Plan: -Chest CT scan shows very small pericardial effusion without obvious interval change Code(s): I31.3 - PERICARDIAL EFFUSION (NONINFLAMMATORY) Physical therapy
--- NOTE | 2019-03-15 11:12 | PN ---
Progress Note, CRM COORDINATOR - Note Progress Note: Selected Entries 03/14/19 03/14/19 03/14/19 02:00 07:23 09:00 Lunch Temperature 98.0 F 97.6 F 97.8 F 03/14/19 03/14/19 03/14/19 14:00 18:20 23:29 Lunch Temperature 98.7 F 98.3 F 98.3 F 03/15/19 03/15/19 03/15/19 06:00 08:55 10:32 Lunch NPO Temperature 97.3 F L 98 F Laboratory Tests 03/12/19 03/15/19 07:00 10:05 WBC 10.6 H 3.9 L Scopalamine patch benefitting pt well. No longer upper airway secretions. More verbal and intelligible. Pt is oriented. He reports understanding Uz[place] well, speaks with fair ESL. Suggest considering transfer to [facility] for possible rehabilitation and assessment for use of computer for augmentative communication. Pt has potential for locked in syndrome as communication deteriorates. This will help maintain ability to communicate and control his environment. Pt was ambulatory with assistance before admission. I believe pt would benefit from PT,OT and speech to maximize pt's function for ADL. Reviewed with GUADALUPE Lin. Call placed to pt's son Dr. Ventura Kaplan.([phone]). I explained the benefit of in pt rehab and computer for prolonged communication. He wanted to review case with Dr. Smart
[2019-03-15 11:33] LABS: ALBUMIN 2.8 g/dl (3.4-5.0); BILIRUBIN,TOTAL 0.6 mg/dL (0.2-1); BLOOD UREA NITROGEN 23.4 mg/dL (7-18); CALCIUM 8.3 mg/dL (8.5-10.1); CREATININE 0.7 mg/dL (0.55-1.3); POTASSIUM 4.3 mmol/L (3.5-5.1); TOT PROT 5.7 g/dl (6.4-8.2)
--- NOTE | 2019-03-15 12:27 | PN ---
Progress Note (short form) - Note Progress Note: PULMONARY Pt nonverbal. No fevers recorded. Saturating 86% on room air. Vital Signs Period Temp Pulse Resp BP Sys/Villegas Pulse Ox Last 24 Hr 97.3 F-98.7 F 61-77 20-20 116-127/62-77 96 Gen: NAD at rest Heart: RRR Lung: scattered rhonchi Abd: soft, nontender Ext: no edema CBC, BMP 03/15/19 10:05 03/15/19 10:05 Active Medications Albuterol Sulfate (Ventolin 0.083% Nebulizer Soln -) 1 amp NEB RQID [facility] Last Admin: 03/15/19 10:16 Dose: 1 amp Carbidopa/Levodopa (Sinemet 25/250 -) 1 each PEG QID [facility] Last Admin: 03/15/19 09:54 Dose: 1 each Cefuroxime Axetil (Ceftin -) 500 mg PO BID [facility] Stop: 03/22/19 09:59 Last Admin: 03/15/19 09:54 Dose: 500 mg Doxazosin Mesylate (Cardura -) 4 mg PEG DAILY [facility] Last Admin: 03/15/19 09:54 Dose: 4 mg Enoxaparin Sodium (Lovenox -) 40 mg SQ DAILY [facility] Last Admin: 03/15/19 09:54 Dose: 40 mg Methylprednisolone Sodium Succinate (Solu-Medrol -) 40 mg IVPUSH Q6H-IV [facility] Last Admin: 03/15/19 09:20 Dose: 40 mg Mirtazapine (Remeron -) 15 mg PEG HS [facility] Last Admin: 03/14/19 21:13 Dose: 15 mg Prednisone (Deltasone -) 40 mg PO BID [facility] Scopolamine HBr (Transderm-Scop -) 1 patch TD Q72H [facility] Last Admin: 03/13/19 13:10 Dose: 1 patch Trazodone HCl (Desyrel -) 25 mg PO HS [facility] Last Admin: 03/14/19 21:13 Dose: 25 mg A/P Acute Hypoxic Respiratory Failure Pneumonia likely Aspiration Supranuclear Palsy Depression/Anxiety Likely Restrictive Lung Disease - continue antibiotics per ID - aspiration precautions - O2 to keep SpO2 >90% - can change steroids to PO prednisone 40mg daily - inhaled bronchodilators - DVT prophylaxis - will need home O2, likely has component of restrictive lung disease/ atelectasis due to his neuromuscular condition
[2019-03-15] MEDS ORDERED: METHIMAZOLE 5 MG TABLET (FP) PO SCH (18:30)
[2019-03-15] MEDS: MIRTAZAPINE 15 MG TABLET (FP) PEG SCH (21:36)
[2019-03-15] MEDS: traZODone HCL 50 MG TABLET (FP) PO SCH (21:36)
[2019-03-15] MEDS: predniSONE 20 MG TABLET (UD) PO SCH (23:54)
--- NOTE | 2019-03-16 00:58 | CONSULT ---
Consult Consult Specialty:: endocrine Referred by:: rosa banerjee Reason for Consultation:: hyperthyroidism - History of Present Illness History of Present Illness: 63 year old male who presents from home pmh 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 (follows with Dr. Bashir of Neurology, depression/anxiety, BPH and no cardiac history who presented with fever,cough, and congestion for the past several days,treated with antibiotics and required further treatment for respiratory illness found to have hyperthyroidism,patient is non verbal,responsive to verbal stimuli. - Alcohol/Substance Use Hx Alcohol Use: No - Smoking History Smoking history: Never smoked Have you smoked in the past 12 months: No Home Medications - Allergies Allergies/Adverse Reactions: Allergies Allergy/AdvReac Type Severity Reaction Status Date / Time No Known Allergies Allergy Verified 03/09/19 17:54 - Home Medications Home Medications: Ambulatory Orders Carbidopa/Levodopa 25/250 [Sinemet 25/250 -] 1 each PO ASDIR 01/19/17 Escitalopram Oxalate [Lexapro -] 10 mg PO DAILY 12/14/17 Doxazosin Mesylate 4 mg PO DAILY 03/09/19 Mirtazapine 15 mg PO DAILY 03/09/19 Review of Systems - Review of Systems Constitutional: reports: Weakness Eyes: reports: No Symptoms HENT: reports: Nasal Congestion Neck: reports: No Symptoms Cardiovascular: reports: Shortness of Breath Respiratory: reports: Exercise Intolerance, SOB on Exertion Gastrointestinal: reports: Bloating Musculoskeletal: reports: Muscle Cramps, Muscle Weakness Physical Exam Vital Signs: Vital Signs Temperature 97.2 F L 03/15/19 18:20 Pulse Rate 77 03/15/19 18:20 Respiratory Rate 20 03/15/19 18:20 Blood Pressure 112/62 03/15/19 18:20 O2 Sat by Pulse Oximetry (%) 96 03/15/19 10:30 Constitutional: Yes: Calm Eyes: Yes: Conjunctiva Clear HENT: Yes: Normocephalic Neck: Yes: Trachea Midline, Other Respiratory: Yes: Cough, SOB, Tachypnea Gastrointestinal: Yes: Normal Bowel Sounds ...Rectal Exam: Yes: Deferred Musculoskeletal: Yes: Muscle Weakness Edema: No Neurological: Yes: Alert, Weakness Labs: CBC, BMP 03/15/19 10:05 03/15/19 10:05 Problem List - Problems (1) BPH (benign prostatic hyperplasia) Problems reviewed: Yes Code(s): N40.0 - BENIGN PROSTATIC HYPERPLASIA WITHOUT LOWER URINRY TRACT SYMP (2) Hyperthyroidism Problems reviewed: Yes Code(s): E05.90 - THYROTOXICOSIS, UNSP WITHOUT THYROTOXIC CRISIS OR STORM (3) Pericardial effusion Problems reviewed: Yes Code(s): I31.3 - PERICARDIAL EFFUSION (NONINFLAMMATORY) (4) Pneumonia Problems reviewed: Yes Code(s): J18.9 - PNEUMONIA, UNSPECIFIED ORGANISM (5) Supranuclear palsy Problems reviewed: Yes Code(s): G23.1 - PROGRESSIVE SUPRANUCLEAR OPHTHALMOPLEGIA (6) Cough Problems reviewed: Yes Code(s): R05 - COUGH Assessment/Plan Current Active Problems BPH (benign prostatic hyperplasia) (Acute) Hyperthyroidism (Acute) Pericardial effusion (Acute) Pneumonia (Acute) Supranuclear palsy (Acute) Abnormal Lab Results 03/15/19 03/15/19 10:05 10:05 WBC 3.9 L Anion Gap 7 L BUN 23.4 H Random Glucose 128 H Calcium 8.3 L AST 11 L Total Protein 5.7 L Albumin 2.8 L Vitamin B12 1925 H TSH 0.09 L Free T4 1.30 H Laboratory Results - last 24 hr 03/15/19 03/15/19 10:05 10:05 WBC 3.9 L RBC 4.01 Hgb 12.9 Hct 37.5 MCV 93.6 MCH 32.2 MCHC 34.4 RDW 13.0 Plt Count 238 MPV 9.0 Sodium 141 Potassium 4.3 Chloride 107 Carbon Dioxide 28 Anion Gap 7 L BUN 23.4 H Creatinine 0.7 Est GFR (CKD-EPI)AfAm 114.78 Est GFR (CKD-EPI)NonAf 99.03 Random Glucose 128 H Calcium 8.3 L Total Bilirubin 0.6 AST 11 L ALT 27 Alkaline Phosphatase 67 Total Protein 5.7 L Albumin 2.8 L Vitamin B12 1925 H TSH 0.09 L Free T4 1.30 H plan: tapazole 10mg po daily follow to normalize free t4 and tsh
[2019-03-16] MEDS ORDERED: METHIMAZOLE 5 MG TABLET (FP) PO SCH (01:01)
[2019-03-16] MEDS ORDERED: METHIMAZOLE 10 MG TABLET (FP) PO SCH (07:12)
[2019-03-16 08:03] LABS: HEMATOCRIT 37.4 % (35.4-49); LYMPH % 15.3 % (8-40); MCH 32.2 pg (25.7-33.7); MCHC 34.8 g/dl (32.0-35.9); MEAN CELL VOLUME 92.6 fl (80-96); MEAN PLT VOLUME 9.2 fl (7.5-11.1); MONO % 11.8 % (3.8-10.2); NEUT % 72.9 % (42.8-82.8); PLATELET COUNT 238 K/MM3 (134-434); RBC 4.04 M/mm3 (4.00-5.60); RDW 12.9 % (11.9-15.9); WHITE BLOOD COUNT 3.8 K/mm3 (4.0-10.0)
[2019-03-16] MEDS ORDERED: PT OWN MED DRAWER 7, Y5N ONE (09:40)
[2019-03-16] MEDS: CEFUROXIME AXETIL 500 MG TABLET PO SCH (09:57)
[2019-03-16] MEDS: CARBIDOPA/LEVODOPA 25/250 TABLET (FP) PEG SCH ×3 (09:57→17:17)
[2019-03-16] MEDS: predniSONE 20 MG TABLET (UD) PO SCH (09:57)
[2019-03-16] MEDS: DOXAZOSIN MESYLATE 4 MG TABLET PEG SCH (09:58)
[2019-03-16] MEDS: ENOXAPARIN NA (PORCINE) 40 MG/0.4 ML DISP.SYRIN SQ SCH (09:59)
--- NOTE | 2019-03-16 11:02 | PN ---
Progress Note, Physician Chief Complaint: SOB Pneumonia History of Present Illness: NAD Awake and alert Scopolamine patch for secretions, working well Seen by Speech therapy able to follow simple commands was ambulatory with assistance at home - Current Medication List Current Medications: Active Medications Albuterol Sulfate (Ventolin 0.083% Nebulizer Soln -) 1 amp NEB RQID [facility] Last Admin: 03/15/19 20:40 Dose: 1 amp Carbidopa/Levodopa (Sinemet 25/250 -) 1 each PEG QID [facility] Last Admin: 03/16/19 09:57 Dose: 1 each Cefuroxime Axetil (Ceftin -) 500 mg PO BID [facility] Stop: 03/22/19 09:59 Last Admin: 03/16/19 09:57 Dose: 500 mg Doxazosin Mesylate (Cardura -) 4 mg PEG DAILY [facility] Last Admin: 03/16/19 09:58 Dose: 4 mg Enoxaparin Sodium (Lovenox -) 40 mg SQ DAILY [facility] Last Admin: 03/16/19 09:59 Dose: 40 mg Methimazole (Tapazole -) 10 mg PO DAILY [facility] Mirtazapine (Remeron -) 15 mg PEG HS [facility] Last Admin: 03/15/19 21:36 Dose: 15 mg Prednisone (Deltasone -) 40 mg PO BID [facility] Last Admin: 03/16/19 09:57 Dose: 40 mg Scopolamine HBr (Transderm-Scop -) 1 patch TD Q72H [facility] Last Admin: 03/13/19 13:10 Dose: 1 patch Trazodone HCl (Desyrel -) 25 mg PO HS [facility] Last Admin: 03/15/19 21:36 Dose: 25 mg - Objective Vital Signs: Vital Signs Temperature 97 F L 03/16/19 09:52 Pulse Rate 66 03/16/19 09:52 Respiratory Rate 20 03/16/19 09:52 Blood Pressure 126/82 03/16/19 09:52 O2 Sat by Pulse Oximetry (%) 96 03/15/19 21:00 Constitutional: Yes: No Distress, Calm, Thin Cardiovascular: Yes: Regular Rate and Rhythm Respiratory: Yes: Regular Gastrointestinal: Yes: Normal Bowel Sounds, Soft Musculoskeletal: Yes: Muscle Weakness Extremities: Yes: WNL Edema: No Peripheral Pulses WNL: Yes Neurological: Yes: Alert, Oriented Psychiatric: Yes: Alert, Oriented Labs: CBC, BMP 03/16/19 06:50 03/15/19 10:05 INR, PTT INR 1.13 (0.83-1.09) H 03/09/19 16:30 Problem List - Problems (1) Hyperthyroidism Assessment/Plan: -Methimazole 10 mg po daily -Endocrinology consult appreciated -Repeat thyroid fxn in 6-8 weeks Problems reviewed: Yes Code(s): E05.90 - THYROTOXICOSIS, UNSP WITHOUT THYROTOXIC CRISIS OR STORM Assessment/Plan (1) Pneumonia Assessment/Plan: -ID and Pulm on board -Ceftin 500mg BID x 7d in AM -afebrile -Bronchodilators -keep SpO2 >90% -O2 via NC -Changed to po prednisone tapering dose -Chest CT scan shows small patchy bilateral pulmonary infiltrates -Repeat CXR shows subtle patchy infiltrates noted bilaterally -Scopalamine patch Code(s): J18.9 - PNEUMONIA, UNSPECIFIED ORGANISM (2) Supranuclear palsy Assessment/Plan: -Neurology on board -Sinemet -Aspiration Precaution -NURSE OB on board -Left message for son to call back to discuss plan of care, NURSE OB spoke to son yesterday suggesting, his father may benefit from rehabilitation at [facility]- which I agree with. Pt is very alert and oriented. -Also, reached out to Neurology Code(s): G23.1 - PROGRESSIVE SUPRANUCLEAR OPHTHALMOPLEGIA (3) BPH (benign prostatic hyperplasia) Assessment/Plan: -Doxazosin Code(s): N40.0 - BENIGN PROSTATIC HYPERPLASIA WITHOUT LOWER URINRY TRACT SYMP (4) Pericardial effusion Assessment/Plan: -Chest CT scan shows very small pericardial effusion without obvious interval change Code(s): I31.3 - PERICARDIAL EFFUSION (NONINFLAMMATORY) Physical therapy
[2019-03-16] MEDS: ALBUTEROL SO4 0.083% IH SOL 2.5 MG/3 ML VIAL.NEB. NEB SCH ×2 (12:46→15:31)
[2019-03-16] MEDS: SCOPOLAMINE HYDROBROMIDE 1 PATCH PATCH.TD72 TD SCH (13:02)
--- NOTE | 2019-03-16 13:28 | PN ---
Progress Note, CASKET LINER - Note Progress Note: Selected Entries 03/14/19 03/14/19 03/14/19 02:00 07:23 09:00 Lunch Temperature 98.0 F 97.6 F 97.8 F 03/14/19 03/14/19 03/14/19 14:00 18:20 23:29 Lunch Temperature 98.7 F 98.3 F 98.3 F 03/15/19 03/15/19 03/15/19 06:00 08:55 10:32 Lunch NPO Temperature 97.3 F L 98 F Laboratory Tests 03/12/19 03/15/19 07:00 10:05 WBC 10.6 H 3.9 L Selected Entries 03/15/19 03/15/19 03/15/19 06:00 08:55 14:10 Temperature 97.3 F L 98 F 97.9 F 03/15/19 03/16/19 03/16/19 18:20 00:00 06:00 Temperature 97.2 F L 97.6 F 97.6 F 03/16/19 09:52 Temperature 97 F L Laboratory Tests 03/16/19 06:50 WBC 3.8 L Scopalamine patch No longer upper airway secretions. More verbal and intelligible. Family refusing transfer to [facility] Suggest out pt assessment for use of computer for augmentative communication. Pt has potential for locked in syndrome as communication deteriorates. This will help maintain ability to communicate and control his environment. Reviewed with pt's son and information given. Homecare speech/sw tx for oropharyngeal exercises and speech intelligibility strategies until he goes to [facility].
--- NOTE | 2019-03-16 13:40 | PN ---
Progress Note, Physician History of Present Illness: pulmonary alert,comfortable,-resp distress,less secretions - Current Medication List Current Medications: Active Medications Albuterol Sulfate (Ventolin 0.083% Nebulizer Soln -) 1 amp NEB RQID [facility] Last Admin: 03/16/19 12:46 Dose: 1 amp Carbidopa/Levodopa (Sinemet 25/250 -) 1 each PEG QID [facility] Last Admin: 03/16/19 09:57 Dose: 1 each Cefuroxime Axetil (Ceftin -) 500 mg PO BID [facility] Stop: 03/22/19 09:59 Last Admin: 03/16/19 09:57 Dose: 500 mg Doxazosin Mesylate (Cardura -) 4 mg PEG DAILY [facility] Last Admin: 03/16/19 09:58 Dose: 4 mg Enoxaparin Sodium (Lovenox -) 40 mg SQ DAILY [facility] Last Admin: 03/16/19 09:59 Dose: 40 mg Methimazole (Tapazole -) 10 mg PO DAILY [facility] Last Admin: 03/16/19 13:01 Dose: 10 mg Mirtazapine (Remeron -) 15 mg PEG HS [facility] Last Admin: 03/15/19 21:36 Dose: 15 mg Prednisone (Deltasone -) 40 mg PO BID [facility] Last Admin: 03/16/19 09:57 Dose: 40 mg Scopolamine HBr (Transderm-Scop -) 1 patch TD Q72H [facility] Last Admin: 03/16/19 13:02 Dose: 1 patch Trazodone HCl (Desyrel -) 25 mg PO HS [facility] Last Admin: 03/15/19 21:36 Dose: 25 mg - Objective Vital Signs: Vital Signs Temperature 97 F L 03/16/19 09:52 Pulse Rate 66 03/16/19 09:52 Respiratory Rate 20 03/16/19 09:52 Blood Pressure 126/82 03/16/19 09:52 O2 Sat by Pulse Oximetry (%) 96 03/15/19 21:00 Constitutional: Yes: Well Nourished, Calm Eyes: Yes: WNL HENT: Yes: WNL Neck: Yes: WNL Cardiovascular: Yes: Regular Rate and Rhythm, S1, S2 Respiratory: Yes: Rhonchi (few rhonchi) Gastrointestinal: Yes: Normal Bowel Sounds Extremities: Yes: WNL Edema: No Labs: CBC, BMP 03/16/19 06:50 Assessment/Plan Problem List - Problems (1) Supranuclear palsy Code(s): G23.1 - PROGRESSIVE SUPRANUCLEAR OPHTHALMOPLEGIA (2) Pneumonia Code(s): J18.9 - PNEUMONIA, UNSPECIFIED ORGANISM (3) Cough Code(s): R05 - COUGH Assessment/Plan O2 as needed BD TX Chest PT Aspiration precautions VTE prophylaxis prednisone taper Scopalamine patch DR REED
--- NOTE | 2019-03-16 14:24 | DS ---
Physical Examination Vital Signs: Vital Signs Temperature 97 F L 03/16/19 09:52 Pulse Rate 66 03/16/19 09:52 Respiratory Rate 20 03/16/19 09:52 Blood Pressure 126/82 03/16/19 09:52 O2 Sat by Pulse Oximetry (%) 96 03/15/19 21:00 Findings/Remarks: Mr. Kaplan is a 63 year old male who presents from home with a past medical history of 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 (follows with Dr. Bashir of Neurology, has a feeding tube), depression/anxiety, BPH and no cardiac history who presents to the emergency room for evaluation of dyspnea associated with fever,cough, and congestion for the past 10 days. Son who is a physician prescribed the patient Augmentin which he took for 10 days which alleviated the fever, but the SOB, cough, and congestion remained and was worse when lying flat. Patient presented to the ER for further evaluation. Upon evaluation in the ER labs notable for a normal WBC and lactic acid level( 1.6, repeat 0.9), normal BNP and troponin. CT scan of chest demonstrated bilateral infiltrate consistent with a bilateral pneumonia and a very small pericardial effusion as seen on prior study. During patient's stay, he was evaluated by Pulmonology, Neurology, endocrinology and Infectious disease Pt was treated with IV antibiotics which were changed to PO abx Pt was also treated with tapering dose of steroids Pt was evaluated for Home O2, pt SpO2 on RA was 88%, pt will need continuos home O2 at 2lpm to maintain SpO2> 90% Pt would also need Suction machine for home Constitutional: Yes: Well Nourished, No Distress, Calm Cardiovascular: Yes: Regular Rate and Rhythm Respiratory: Yes: Regular Gastrointestinal: Yes: Normal Bowel Sounds, Soft Renal/: Yes: WNL Musculoskeletal: Yes: Muscle Weakness Extremities: Yes: WNL Edema: No Peripheral Pulses WNL: Yes Neurological: Yes: Alert, Oriented Psychiatric: Yes: Alert, Oriented Labs: CBC, BMP 03/16/19 06:50 03/15/19 10:05 Discharge Summary Problems reviewed: Yes Reason For Visit: PNEUMONIA Current Active Problems BPH (benign prostatic hyperplasia) (Acute) Hyperthyroidism (Acute) Pericardial effusion (Acute) Pneumonia (Acute) Supranuclear palsy (Acute) Laboratory Last Values WBC 3.8 K/mm3 (4.0-10.0) L 03/16/19 06:50 RBC 4.04 M/mm3 (4.00-5.60) 03/16/19 06:50 Hgb 13.0 GM/dL (11.7-16.9) 03/16/19 06:50 Hct 37.4 % (35.4-49) 03/16/19 06:50 MCV 92.6 fl (80-96) 03/16/19 06:50 MCH 32.2 pg (25.7-33.7) 03/16/19 06:50 MCHC 34.8 g/dl (32.0-35.9) 03/16/19 06:50 RDW 12.9 % (11.9-15.9) 03/16/19 06:50 Plt Count 238 K/MM3 (134-434) 03/16/19 06:50 MPV 9.2 fl (7.5-11.1) 03/16/19 06:50 Absolute Neuts (auto) 2.8 K/mm3 (1.5-8.0) 03/16/19 06:50 Neutrophils % 72.9 % (42.8-82.8) 03/16/19 06:50 Lymphocytes % 15.3 % (8-40) 03/16/19 06:50 Monocytes % 11.8 % (3.8-10.2) H D 03/16/19 06:50 Eosinophils % 0.0 % (0-4.5) D 03/16/19 06:50 Basophils % 0.0 % (0-2.0) 03/16/19 06:50 Nucleated RBC % 0 % (0-0) 03/16/19 06:50 PT with INR 13.30 SEC (9.7-13.0) H 03/09/19 16:30 INR 1.13 (0.83-1.09) H 03/09/19 16:30 PTT (Actin FS) 36.7 SECONDS (25.2-36.5) H 03/09/19 16:30 VBG pH 7.44 (7.31-7.41) H 03/09/19 16:30 POC VBG pCO2 41.4 mmHg (38-52) 03/09/19 16:30 POC VBG pO2 57.0 mmHg (28-48) H 03/09/19 16:30 VBG HCO3 27.8 mmol/L (23-29) 03/09/19 16:30 VBG O2 Sat ([place]) 90.1 % (70-80) H 03/09/19 16:30 VBG Base Excess 3.8 meq/l (-2-2) H 03/09/19 16:30 Sodium 141 mmol/L (136-145) 03/15/19 10:05 Potassium 4.3 mmol/L (3.5-5.1) 03/15/19 10:05 Chloride 107 mmol/L (98-107) 03/15/19 10:05 Carbon Dioxide 28 mmol/L (21-32) 03/15/19 10:05 Anion Gap 7 MMOL/L (8-16) L 03/15/19 10:05 BUN 23.4 mg/dL (7-18) H 03/15/19 10:05 Creatinine 0.7 mg/dL (0.55-1.3) 03/15/19 10:05 Est GFR (CKD-EPI)AfAm 114.78 03/15/19 10:05 Est GFR (CKD-EPI)NonAf 99.03 03/15/19 10:05 Random Glucose 128 mg/dL (74-106) H 03/15/19 10:05 Lactic Acid 0.9 mmol/L (0.4-2.0) 03/09/19 22:45 Calcium 8.3 mg/dL (8.5-10.1) L 03/15/19 10:05 Total Bilirubin 0.6 mg/dL (0.2-1) 03/15/19 10:05 AST 11 U/L (15-37) L 03/15/19 10:05 ALT 27 U/L (13-61) 03/15/19 10:05 Alkaline Phosphatase 67 U/L (45-117) 03/15/19 10:05 Troponin I < 0.02 ng/ml (0.00-0.05) 03/09/19 16:30 B-Natriuretic Peptide 71.9 pg/ml (5-125) 03/09/19 16:30 Total Protein 5.7 g/dl (6.4-8.2) L 03/15/19 10:05 Albumin 2.8 g/dl (3.4-5.0) L 03/15/19 10:05 Vitamin B12 1925 pg/ml (193-986) H 03/15/19 10:05 TSH 0.09 uIU/ml (0.358-3.74) L 03/15/19 10:05 Free T4 1.30 ng/dl (0.76-1.16) H 03/15/19 10:05 Urine Color Yellow 03/10/19 13:30 Urine Appearance Turbid 03/10/19 13:30 Urine pH 8.5 (5.0-8.0) H 03/10/19 13:30 Ur Specific [place] 1.017 (1.010-1.035) 03/10/19 13:30 Urine Protein Trace (NEGATIVE) 03/10/19 13:30 Urine Glucose (UA) Negative (NEGATIVE) 03/10/19 13:30 Urine Ketones Negative (NEGATIVE) 03/10/19 13:30 Urine Blood Negative (NEGATIVE) 03/10/19 13:30 Urine Nitrite Negative (NEGATIVE) 03/10/19 13:30 Urine Bilirubin Negative (NEGATIVE) 03/10/19 13:30 Urine Urobilinogen 0.2 mg/dL (0.2-1.0) 03/10/19 13:30 Ur Leukocyte Esterase Negative (NEGATIVE) 03/10/19 13:30 Microbiology 03/14/19 17:11 Urine For Antigen Detection Legionella Antigen - Final 03/14/19 17:11 Urine For Antigen Detection Streptococcus pneumoniae Antigen (M - Final 03/09/19 16:30 Blood - Peripheral Venous Blood Culture - Final NO GROWTH AFTER 5 DAYS INCUBATION 03/09/19 16:30 Blood - Peripheral Venous Blood Culture - Final NO GROWTH AFTER 5 DAYS INCUBATION 03/10/19 14:50 Sputum - Oropharynx Suctioned Sputum Gram Stain - Final 03/10/19 14:50 Sputum - Oropharynx Suctioned Sputum Sputum Culture - Final NORMAL RESPIRATORY VINNY 03/10/19 20:30 Urine - Urine Clean Catch Urine Culture - Final NO GROWTH OBTAINED Vital Signs Temp 97 F L 03/16/19 09:52 Pulse 66 03/16/19 09:52 Resp 20 03/16/19 09:52 BP 126/82 03/16/19 09:52 Pulse Ox 96 03/15/19 21:00 Intake & Output 10/22/19 10/23/19 10/23/19 23:59 11:59 23:59 Intake Total 1290 1100 Balance 1290 1100 Intake: Oral 0 Tube Feeding 670 600 Tube Irrigant 620 500 Other: Voiding Method Toilet # Unmeasured Voids Void 1 1 Bowel Movement No Condition: Stable - Instructions Diet, Activity, Other Instructions: Prednisone as following tapering dose: 40 mg 2 x day for 2 days 30 mg 2 x day for 2 days 20 mg 2 x day for 2 days 10 mg 2 x day for 2 days 5 mg 2 x day for 2 days Start Trazodone 50 mg, 1 tab at bedtime for sleep disturbance Albuterol nebulizer every 6 hours as needed for shortness of breath or wheezing Methimazole 10 mg 1 tab daily for hyperthyroidism Scopolamine patch every 3 days for secretion Patient will need repeat thyroid labs in 6-8 weeks Home oxygen at 2 L/min Referrals: Osmani Starks MD [Primary Care Provider] - Mago Bashir MD [Staff Physician] - Disposition: VNS/HOME HEALTH CARE - Home Medications Comprehensive Discharge Medication List: Ambulatory Orders Doxazosin Mesylate 4 mg PO DAILY 03/09/19 Mirtazapine 15 mg PO DAILY 03/09/19 Albuterol 0.083% Nebulizer Sayra [Ventolin 0.083% Nebulizer Soln -] 1 amp NEB QID PRN #1 box 03/16/19 Carbidopa/Levodopa 25/250 [Sinemet 25/250 -] 1 each PEG QID tablet 03/16/19 Cefuroxime Axetil [Ceftin -] 500 mg PO BID #11 tablet 03/16/19 Methimazole [Tapazole -] 10 mg PO DAILY #30 tablet 03/16/19 Nebulizer Accessories [A.i.r.s. Nebulizer] 1 each QID PRN #1 kit 03/16/19 Nebulizer and Compressor [Easy Air Compressor Nebulizer] 1 each QID PRN #1 each 03/16/19 Prednisone 10 mg PO ASDIR #42 tablet 03/16/19 Scopolamine Hydrobromide [Transderm-Scop -] 1 patch TD Q72H #10 patch.[id number] 03/16 traZODone HCL [Desyrel -] 25 mg PO HS #30 tablet 03/16/19
[2019-03-16 15:06] VITALS: PULSE 84
[2019-03-16 15:30] VITALS: BP 118/66; TEMP 97.7
== END 2019-03-16 17:35 | disposition home health service (06) | DRG 177 ==
LOC: JER 16:05 → JERBED 20:42 → J5S 03-10 02:16
PROVIDERS: ADMIT Family Medicine; ATTEND Family Medicine
DX: J69.0 Pneumonitis due to inhalation of food and vomit (principal); J96.01 Acute respiratory failure with hypoxia; I31.3 Pericardial effusion (noninflammatory); G23.1 Progressive supranuclear ophthalmoplegia [Steele-Richardson-Olszewski]; F41.8 Other specified anxiety disorders; N40.0 Benign prostatic hyperplasia without lower urinary tract symptoms; E05.90 Thyrotoxicosis, unspecified without thyrotoxic crisis or storm
CPT/HCPCS: 36415; 71045-TC-FY; 71250-TC; 80048; 80053; 81003; 82607; 82803; 83605; 83880; 84439; 84443; 84484; 85025; 85027; 85610; 85730; 87040; 87070; 87086; 87205; 87899; 90670; 93005; 93010; 94640; 94761; 97116-GP; 97162-GP; 99284-25; G0008; G0009; J7030; Q2036

== ENCOUNTER 2019-12-20 12:28 | Inpatient (IN) | payer OTHER ==
--- NOTE | 2019-12-20 12:36 | PDOC ---
Rapid Medical Evaluation Chief Complaint: Shortness of Breath Time Seen by Provider: 12/20/19 12:31 Medical Evaluation: Allergies Allergy/AdvReac Type Severity Reaction Status Date / Time No Known Allergies Allergy Verified 03/09/19 17:54 12/20/19 12:33 Pt is a 64 y/o M with PMH of Parkinsons, presents to the ER with SOB, fever, and lethargy for 2 days. No known COVID exposure, has not left the house in 6 months. ROS unobtainable d/t patient condition. Daughter states that he has been acting sluggish. She also reports a fever of 103F last night. Pt received Tylenol this morning. Exam: b/l rhonchi, tachypnic, hypoxic Orders: sepsis order set Pt to proceed to the ER for further evaluation Discharge Disposition - Diagnosis SOB (shortness of breath) - Referrals - Patient Instructions - Post Discharge Activity
[2019-12-20] MEDS ORDERED: SODIUM CHLORIDE 0.9% 500 ML INFUS.BAG IV ONE (13:16)
--- NOTE | 2019-12-20 13:20 | PDOC ---
History of Present Illness - General Chief Complaint: Shortness of Breath Stated Complaint: FEVER/WEAKNESS Time Seen by Provider: 12/20/19 12:31 - History of Present Illness Initial Comments: Brett Kaplan is a 64 y/o male with PMH significant for progressive 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, nonverbal, difficulty swallowing (PEG tube feeds), brought in by daughter today for fever over the past two days, weakness, and restlessness. Per daughter, she has taken pt's temp for the past two days and found it to be elevated (101). Reports that her father "has not been acting like himself," that he is restless in bed, appears weak (not able to stand and use the bathroom on his own), Meds: mirtazapine, carvidopa/levidopa Past History - Medical History Allergies/Adverse Reactions: Allergies Allergy/AdvReac Type Severity Reaction Status Date / Time No Known Allergies Allergy Verified 12/20/19 15:48 Home Medications: Ambulatory Orders Doxazosin Mesylate 4 mg GT DAILY 03/09/19 Mirtazapine 15 mg PO DAILY 03/09/19 Carbidopa/Levodopa 25/250 [Sinemet 25/250 -] 1 each PEG QID tablet 03/16/19 Mirabegron [Myrbetriq] 25 mg GT DAILY 12/20/19 Anemia: No Asthma: No Cancer: No Cardiac Disorders: No CVA: No COPD: No CHF: No Dementia: No Diabetes: No GI Disorders: Yes (GERD) Disorders: (BPH) HTN: Yes Hypercholesterolemia: No Seizures: No - Surgical History Abdominal Surgery: (G-TUBE) - Immunization History Immunization Up to Date: Yes - Psycho-Social/Smoking History Smoking History: Never smoked Have you smoked in the past 12 months: No Review of Systems - Review of Systems Able to Perform ROS?: No (nonverbal) *Physical Exam - Vital Signs Last Vital Signs Temp Pulse Resp BP Pulse Ox 97.4 F L 107 H 43 H 117/67 91 L 12/20/19 12:33 12/20/19 12:33 12/20/19 12:33 12/20/19 12:33 12/20/19 12:33 - Physical Exam GENERAL: Awake, alert, nonverbal, in no acute distress, withdraws to noxious stimuli HEAD: No signs of trauma, normocephalic, atraumatic _ EYES: PERRLA, EOMI, sclera anicteric, conjunctiva clear_ ENT: Hearing grossly normal, nares patent, oropharynx clear without exudates. No uvular deviation. Moist mucosa. Increased oral secretions requiring suctioning. NECK: Normal ROM, no lymphadenopathy, JVD, or masses. No c-spine TTP. LUNGS: No distress, speaks in full sentences, diffuse congestion in bilateral upper and lower lung liao HEART: Tachycardic, normal S1 and S2, no murmurs appreciated, peripheral pulses normal and equal bilaterally._ ABDOMEN: Soft, nontender, normoactive bowel sounds. No guarding, no rebound. No masses. PEG tube in place with no purulent discharge, bleeding, or surrounding erythema. EXTREMITIES: Contracted, no edema. No clubbing or cyanosis. NEUROLOGICAL: Unable to assess. Moving all four extremities and no gross neuro deficits or findings. SKIN: Warm, Dry. Stage II ulcer left buttock. ED Treatment Course - LABORATORY CBC & Chemistry Diagram: 12/20/19 13:00 12/20/19 13:00 Medical Decision Making - Medical Decision Making 64M hx of PSP presenting today with two days of change in mental status, fever, weakness, chest congestion. -spesis work up 12/20/19 13:57 EKG shows 103 bpm, sinus tachycardia, incomplete RBBB seen on prior EKG, no axis deviation, WI 168, QTc 453, no ST elevation/depression. 12/20/19 14:42 CXR shows bilateral lower lobe infiltrate. Will start vanc/zosyn to cover for broad spectrum. 12/20/19 14:49 Labs reviewed. Laboratory Last Values WBC 6.7 K/mm3 (4.0-10.0) 12/20/19 13:00 RBC 4.28 M/mm3 (4.00-5.60) 12/20/19 13:00 Hgb 13.0 GM/dL (11.7-16.9) 12/20/19 13:00 Hct 39.5 % (35.4-49) 12/20/19 13:00 MCV 92.4 fl (80-96) 12/20/19 13:00 MCH 30.4 pg (25.7-33.7) 12/20/19 13:00 MCHC 32.9 g/dl (32.0-35.9) 12/20/19 13:00 RDW 14.1 % (11.9-15.9) 12/20/19 13:00 Plt Count 312 K/MM3 (134-434) D 12/20/19 13:00 MPV 8.9 fl (7.5-11.1) 12/20/19 13:00 Absolute Neuts (auto) 5.3 K/mm3 (1.5-8.0) 12/20/19 13:00 Neutrophils % 78.1 % (42.8-82.8) 12/20/19 13:00 Lymphocytes % 12.4 % (8-40) 12/20/19 13:00 Monocytes % 8.9 % (3.8-10.2) 12/20/19 13:00 Eosinophils % 0.3 % (0-4.5) D 12/20/19 13:00 Basophils % 0.3 % (0-2.0) D 12/20/19 13:00 Nucleated RBC % 0 % (0-0) 12/20/19 13:00 PT with INR 14.10 SEC (9.7-13.0) H 12/20/19 13:00 INR 1.19 (0.83-1.09) H 12/20/19 13:00 PTT (Actin FS) 30.8 SECONDS (25.2-36.5) 12/20/19 13:00 Sodium 139 mmol/L (136-145) 12/20/19 13:00 Potassium 4.2 mmol/L (3.5-5.1) 12/20/19 13:00 Chloride 103 mmol/L (98-107) 12/20/19 13:00 Carbon Dioxide 29 mmol/L (21-32) 12/20/19 13:00 Anion Gap 7 MMOL/L (8-16) L 12/20/19 13:00 BUN 18.4 mg/dL (7-18) H 12/20/19 13:00 Creatinine 0.6 mg/dL (0.55-1.3) 12/20/19 13:00 Est GFR (CKD-EPI)AfAm 121.43 12/20/19 13:00 Est GFR (CKD-EPI)NonAf 104.77 12/20/19 13:00 Random Glucose 149 mg/dL (74-106) H 12/20/19 13:00 Lactic Acid 1.4 mmol/L (0.4-2.0) 12/20/19 13:00 Calcium 8.7 mg/dL (8.5-10.1) 12/20/19 13:00 Total Bilirubin 0.9 mg/dL (0.2-1) 12/20/19 13:00 AST 22 U/L (15-37) 12/20/19 13:00 ALT 13 U/L (13-61) 12/20/19 13:00 Alkaline Phosphatase 79 U/L (45-117) 12/20/19 13:00 Troponin I < 0.02 ng/ml (0.00-0.05) 12/20/19 13:00 Total Protein 6.6 g/dl (6.4-8.2) 12/20/19 13:00 Albumin 2.6 g/dl (3.4-5.0) L 12/20/19 13:[address] Cartwright's office for admission. 12/20/19 17:16 Have not received a call back from [facility] Toribio. Will admit to hospitalist. 12/20/19 18:04 D/w Dr. Longo who accepts the patient for admission. Discharge - Discharge Information Problems reviewed: Yes Clinical Impression/Diagnosis: SOB (shortness of breath), Sepsis, Pneumonia Condition: Guarded - Admission Yes - Follow up/Referral - Patient Discharge Instructions - Post Discharge Activity
--- NOTE | 2019-12-20 13:24 | PDOC ---
Attending Attestation - Resident Resident Name: AndreHorace - ED Attending Attestation I have performed the following: I have examined & evaluated the patient, The case was reviewed & discussed with the resident, I agree w/resident's findings & plan, Exceptions are as noted - HPI HPI: 12/20/19 14:48 Patient is a 64-year-old gentleman history of progressive 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, dysphagia sp G tube, presents with complaint of fever x 2-3 days and is genreally weaker than normal. The patient's daughter states that the patient's Has required more assistance with transporting himself. There is been no other focal symptoms though including any obvious coughing, vomiting, diarrhea, foul- smelling urine. At baseline the patient is able to use the restroom on his own with assistance, He also usually requires suctioning approximately 2 times a day as he was unable to Swallow his secretions. neuro: stephen - Physicial Exam PE: 12/20/19 14:50 GENERAL: The patient is awake, alert Nontoxic - in no acute distress. HEAD: Normocephalic, atraumatic. EYES:sclera anicteric, conjunctiva clear. ENT: Moist mucous membranes. NECK: Normal range of motion, supple LUNGS: rales at L base HEART: Regular rate and rhythm, normal S1 and S2 without murmur, rub or gallop. ABDOMEN: Soft, nontender, No guarding, no rebound. No CVA tenderness, gtube in place EXTREMITIES: Normal range of motion, no edema. PSYCH: Normal mood, normal affect. SKIN: hot to touch, Dry, normal turgor, - Medical Decision Making 12/20/19 14:55 differential includes pna, uti/occult infection sepsis orderset obtained pt placed onn supplemental o2 12/20/19 17:09 pts cxr noted for b/l lower lobe infiltrates will admit for iv abx and treatment of pna/hypoxia Heart Score/ECG Review - ECG Impressions Comment:: 12/20/19 13:33 Twelve-lead EKG was performed and reviewed by me. There is normal sinus rhythm with a HR of 103 TWI in lead v1-v3 incomplete rbbb No significant changes when compared with prior EKG dated March 09, 2019 Discharge - Discharge Information Problems reviewed: Yes Clinical Impression/Diagnosis: SOB (shortness of breath) Sepsis Qualifiers: Acute respiratory failure type: with hypoxia Severe sepsis shock status: without septic shock Pneumonia Qualifiers: Pneumonia type: due to unspecified organism Laterality: bilateral Lung location: unspecified part of lung Qualified Code(s): J18.9 - Pneumonia, un specified organism Condition: Guarded - Follow up/Referral - Patient Discharge Instructions - Post Discharge Activity
[2019-12-20 14:07] LABS: BASO % 0.3 % (0-2.0); EOS % 0.3 % (0-4.5); HEMATOCRIT 39.5 % (35.4-49); LYMPH % 12.4 % (8-40); MCH 30.4 pg (25.7-33.7); MCHC 32.9 g/dl (32.0-35.9); MEAN CELL VOLUME 92.4 fl (80-96); MEAN PLT VOLUME 8.9 fl (7.5-11.1); MONO % 8.9 % (3.8-10.2); NEUT % 78.1 % (42.8-82.8); PLATELET COUNT 312 K/MM3 (134-434); RBC 4.28 M/mm3 (4.00-5.60); RDW 14.1 % (11.9-15.9); WHITE BLOOD COUNT 6.7 K/mm3 (4.0-10.0)
[2019-12-20 14:08] LABS: INR 1.19 (0.83-1.09); PROTHROMBIN TIME (PATIENT) 14.1 SEC (9.7-13.0)
[2019-12-20 14:11] LABS: ACTIVATED PTT 30.8 SECONDS (25.2-36.5)
[2019-12-20 14:24] LABS: ALBUMIN 2.6 g/dl (3.4-5.0); BILIRUBIN,TOTAL 0.9 mg/dL (0.2-1); BLOOD UREA NITROGEN 18.4 mg/dL (7-18); CALCIUM 8.7 mg/dL (8.5-10.1); CREATININE 0.6 mg/dL (0.55-1.3); POTASSIUM 4.2 mmol/L (3.5-5.1); TOT PROT 6.6 g/dl (6.4-8.2)
[2019-12-20] MEDS ORDERED: PIPERACILLIN/TAZOB 3.375 GM 3.375 GM in DEXTROSE 5%-WATER - 50 ML IVPB ONE (14:27)
[2019-12-20] MEDS ORDERED: VANCOMYCIN 1,000 MG in DEXTROSE 5%-WATER - 250 ML IVPB ONE (14:27)
[2019-12-20] MEDS ORDERED: PIPERACILLIN/TAZOB 3.375 GM 3.375 GM/50 ML BAG IVPB ONE (14:40)
[2019-12-20] MEDS ORDERED: VANCOMYCIN 1 GRAM (PRE-DOCKED) 1,000 MG/250 ML BAG IVPB ONE (14:40)
[2019-12-20] MEDS ORDERED: ACETAMINOPHEN 1000 MG/100 ML VIAL (NON FORMULARY) IVPB ONE (18:29)
[2019-12-20] MEDS ORDERED: VANCOMYCIN 1,000 MG in DEXTROSE 5%-WATER - 250 ML IVPB SCH (18:30)
[2019-12-20] MEDS ORDERED: SODIUM CHLORIDE 1,000 ML IV SCH (18:30)
[2019-12-20] MEDS ORDERED: ACETAMINOPHEN INJECTION 100 ML IVPB ONE (18:30)
--- NOTE | 2019-12-20 18:35 | HP ---
CHIEF COMPLAINT: Fevers, lethargy 2 days PCP: Dr. Penaloza HISTORY OF PRESENT ILLNESS: This is a 64 year old non-verbal male with PMH of Parkinson's disease with Supranuclear palsy with PEG tube placed. He was brought to the ER by his daughter, who states that for the past 2 days, he has had fevers of 101 with increased lethargy. At his baseline, he is mostly bed bound, and uses the wheelchair to be transported to the bathroom. He is normally able to take a few steps with assistance, responds occasionally to verbal commands, and is alert and oriented, although non-verbal. He receives Jevity feeds 6 times a day, and has no PO intake. He lives with his , and pt's daughter and son assist their mother with taking care of the patient. Daughter states he has to be suctioned twice a day, and states he has been sounding more "crackly" than usual, with SpO2 readings in the 90s, although she denies chills, SOB, changes in urine or BMs. Of note he had an admission at [facility] in Feb 2019 for aspiration PNA, blood/urine/sputum cultures showed no growth, and he was treated with Ceftriaxone/Azithromycin. ER course was notable for: (1) CXR with B/L infiltrates (2) HR 106 (3) Received Vanc/Zosyn Recent Travel: denies PAST MEDICAL HISTORY: As listed in HPI PAST SURGICAL HISTORY: PEG placement 2 years ago Social History: Smoking: denies Alcohol: denies Drugs: denies Allergies No Known Allergies Allergy (Verified 12/20/19 15:48) HOME MEDICATIONS: Home Medications Medication Instructions Recorded Doxazosin Mesylate 4 mg GT DAILY 03/09/19 Mirtazapine 15 mg PO DAILY 03/09/19 Carbidopa/Levodopa 25/250 [Sinemet 1 each PEG QID tablet 03/16/19 25/250 -] Mirabegron [Myrbetriq] 25 mg GT DAILY 12/20/19 REVIEW OF SYSTEMS CONSTITUTIONAL: fever Absent: fever, chills, diaphoresis, generalized weakness, malaise, loss of appetite, weight change HEENT: Absent: rhinorrhea, nasal congestion, throat pain, throat swelling, difficulty swallowing, mouth swelling, ear pain, eye pain, visual changes CARDIOVASCULAR: Absent: chest pain, syncope, palpitations, irregular heart rate, lightheadedness, peripheral edema RESPIRATORY: Absent: cough, shortness of breath, dyspnea with exertion, orthopnea, wheezing, stridor, hemoptysis GASTROINTESTINAL: Absent: abdominal pain, abdominal distension, nausea, vomiting, diarrhea, constipation, melena, hematochezia GENITOURINARY: Absent: dysuria, frequency, urgency, hesitancy, hematuria, flank pain, genital pain MUSCULOSKELETAL: Absent: myalgia, arthralgia, joint swelling, back pain, neck pain SKIN: Absent: rash, itching, pallor HEMATOLOGIC/IMMUNOLOGIC: Absent: easy bleeding, easy bruising, lymphadenopathy, frequent infections ENDOCRINE: Absent: unexplained weight gain, unexplained weight loss, heat intolerance, cold intolerance NEUROLOGIC: Absent: headache, focal weakness or paresthesias, dizziness, unsteady gait, seizure, mental status changes, bladder or bowel incontinence PSYCHIATRIC: Absent: anxiety, depression, suicidal or homicidal ideation, hallucinations. PHYSICAL EXAMINATION Vital Signs - 24 hr 12/20/19 12/20/19 12/20/19 12:33 13:15 13:50 Temperature 97.4 F L 98.8 F Pulse Rate 107 H Pulse Rate [ 101 H Radial] Respiratory 43 H 22 H Rate Blood Pressure 117/67 Blood Pressure 131/76 [Left Arm] O2 Sat by Pulse 91 L 97 Oximetry (%) 12/20/19 12/20/19 12/20/19 13:52 14:00 14:20 Temperature Pulse Rate 103 H Pulse Rate [ 103 H 95 H Radial] Respiratory 22 H 22 H Rate Blood Pressure Blood Pressure 135/84 133/78 [Left Arm] O2 Sat by Pulse 99 98 97 Oximetry (%) GENERAL: AOx0, non verbal HEAD: Normal with no signs of trauma. EYES: Pupils equal, round and reactive to light, extraocular movements intact, sclera anicteric, conjunctiva clear. No lid lag. EARS, NOSE, THROAT: Ears normal, nares patent, oropharynx clear without exudates. Moist mucous membranes. NECK: Normal range of motion, supple without lymphadenopathy, JVD, or masses. LUNGS: Diffuse crackles B/L HEART: Regular rate and rhythm, normal S1 and S2 without murmur, rub or gallop. ABDOMEN: Soft, nontender, PEG tube in RUQ MUSCULOSKELETAL: Normal range of motion at all joints. No bony deformities or tenderness. No CVA tenderness. UPPER EXTREMITIES: 2+ pulses, warm, well-perfused. No cyanosis. No clubbing. No peripheral edema. LOWER EXTREMITIES: 2+ pulses, warm, well-perfused. No calf tenderness. No peripheral edema. NEUROLOGICAL: Cranial nerves II-XII intact. Normal speech. Normal gait. PSYCHIATRIC: Cooperative. Good eye contact. Appropriate mood and affect. SKIN: Grade II ulcer on L buttock Laboratory Results - last 24 hr 12/20/19 12/20/19 12/20/19 13:00 13:00 13:00 WBC 6.7 RBC 4.28 Hgb 13.0 Hct 39.5 MCV 92.4 MCH 30.4 MCHC 32.9 RDW 14.1 Plt Count 312 D MPV 8.9 Absolute Neuts (auto) 5.3 Neutrophils % 78.1 Lymphocytes % 12.4 Monocytes % 8.9 Eosinophils % 0.3 D Basophils % 0.3 D Nucleated RBC % 0 PT with INR 14.10 H INR 1.19 H PTT (Actin FS) 30.8 Sodium Potassium Chloride Carbon Dioxide Anion Gap BUN Creatinine Est GFR (CKD-EPI)AfAm Est GFR (CKD-EPI)NonAf Random Glucose Lactic Acid Calcium Total Bilirubin AST ALT Alkaline Phosphatase Troponin I < 0.02 Total Protein Albumin 12/20/19 12/20/19 13:00 13:00 WBC RBC Hgb Hct MCV MCH MCHC RDW Plt Count MPV Absolute Neuts (auto) Neutrophils % Lymphocytes % Monocytes % Eosinophils % Basophils % Nucleated RBC % PT with INR INR PTT (Actin FS) Sodium 139 Potassium 4.2 Chloride 103 Carbon Dioxide 29 Anion Gap 7 L BUN 18.4 H Creatinine 0.6 Est GFR (CKD-EPI)AfAm 121.43 Est GFR (CKD-EPI)NonAf 104.77 Random Glucose 149 H Lactic Acid 1.4 Calcium 8.7 Total Bilirubin 0.9 AST 22 ALT 13 Alkaline Phosphatase 79 Troponin I Total Protein 6.6 Albumin 2.6 L ASSESSMENT/PLAN: 64 year old non-verbal male with PMH of Parkinson's disease with Supranuclear palsy with PEG tube placed. He was brought to the ER by his daughter, who states that for the past 2 days, he has had fevers of 101 with increased lethargy. #PNA - Fits sepsis criteria with tachycardia and tachypnea, suspecting PNA due to crackles on exam and radiographic findings of B/L infiltrates - May have aspirated, will require upright positioning and frequent suctioning - Blood/Urine/Sputum cultures with Urine Legionella antigen pending - Vanc/Zosyn started - ID consult placed (Dr. Amato) - Pulm consult placed (Dr. Iglesias) - Maintain SpO2>90% #Hx of Parkinson's - Home Sinamet continued #Hx of Depression/Anxiety - Home Mitrazapine/Lexapro continued #Hx of BPH - Home Doxzosin continued #FEN - Jevity feeds via PEG - Financial Services Officer consult placed for PEG titration #Prophylaxis - Lovenox 40mg once daily #Dispo - Will monitor in M/S and F/U on cultures Visit type - Medication Review Med list reviewed for High Risk Meds patients 65 and older: Yes - Emergency Visit Emergency Visit: Yes ED Registration Date: 12/20/19 Care time: The patient presented to the Emergency Department on the above date and was hospitalized for further evaluation of their emergent condition. - New Patient This patient is new to me today: No - Critical Care Critical Care patient: No ATTENDING PHYSICIAN STATEMENT I saw and evaluated the patient. I reviewed the resident's note and discussed the case with the resident. I agree with the resident's findings and plan as documented. SUBJECTIVE: OBJECTIVE: ASSESSMENT AND PLAN:
--- NOTE | 2019-12-20 18:43 | PN ---
Teaching Attending Note Name of Resident: Ba Longo ATTENDING PHYSICIAN STATEMENT I saw and evaluated the patient. I reviewed the resident's note and discussed the case with the resident. I agree with the resident's findings and plan as documented. SUBJECTIVE: OBJECTIVE: ASSESSMENT AND PLAN: Patient was seen and examined. 64 year old male with a PMHx notable for Parkinsons disease/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 who was brought from home with fever with clinical signs of pneumonia PLAN #Pneumonia - Agree with antibiotic therapy - follow-up culture data #2 Supranuclear Palsy --Continue with sinemet 25/250mg QID(Neurology will clarify dose in am) --Neurology- consulted #3 Pericardial Effusion(very small) As reported on CT scan of chest no change in size from prior study Hemodynamically stable DVT prophylaxsis --SCD's/TEDS --Lovenox 40mg once daily
[2019-12-20 19:11] LABS: URINE APPEARANCE CLOUDY; URINE BILIRUBIN NEGATIVE (NEGATIVE); URINE COLOR YELLOW; URINE GLUCOSE (UA) NEGATIVE (NEGATIVE); URINE KETONE NEGATIVE (NEGATIVE); URINE LEUK ESTERASE NEGATIVE (NEGATIVE); URINE NITRITE NEGATIVE (NEGATIVE); URINE PROTEIN TRACE (NEGATIVE)
[2019-12-20 20:48] VITALS: BMI 23.3
[2019-12-20] MEDS: CARBIDOPA/LEVODOPA 25/250 TABLET (FP) PEG SCH (23:06)
[2019-12-20] MEDS: MIRTAZAPINE 15 MG TABLET (FP) GT SCH (23:06)
[2019-12-20] MEDS ORDERED: PT OWN MED DRAWER 7, Y5N ONE (23:57)
[2019-12-21] MEDS ORDERED: PIPERACILLIN/TAZOBACTAM 3.375 GM VIAL IVPB ONE ×3 (02:14→18:20)
[2019-12-21] MEDS ORDERED: DEXTROSE 5%-WATER - 50 ML IVPB ONE ×3 (02:14→18:20)
[2019-12-21] MEDS: PIPERACILLIN/TAZOB 3.375 GM 3.375 GM in DEXTROSE 5%-WATER - 50 ML IVPB SCH ×3 (02:20→18:28)
[2019-12-21 07:25] LABS: HEMATOCRIT 36.8 % (35.4-49); HEMOGLOBIN 12.2 GM/dL (11.7-16.9); MCH 30.8 pg (25.7-33.7); MCHC 33.1 g/dl (32.0-35.9); MEAN PLT VOLUME 8.7 fl (7.5-11.1); PLATELET COUNT 281 K/MM3 (134-434); RBC 3.95 M/mm3 (4.00-5.60); RDW 13.8 % (11.9-15.9)
[2019-12-21 07:39] LABS: ALBUMIN 2.4 g/dl (3.4-5.0); BILIRUBIN,TOTAL 1.2 mg/dL (0.2-1); BLOOD UREA NITROGEN 12.7 mg/dL (7-18); CALCIUM 8.3 mg/dL (8.5-10.1); CREATININE 0.6 mg/dL (0.55-1.3); MAGNESIUM 2.1 mg/dL (1.8-2.4); PHOSPHOROUS 3.1 mg/dL (2.5-4.9); POTASSIUM 3.9 mmol/L (3.5-5.1); TOT PROT 6.1 g/dl (6.4-8.2)
--- NOTE | 2019-12-21 09:21 | EKG ---
Test Reason : Blood Pressure : / mmHG Vent. Rate : 103 BPM Atrial Rate : 103 BPM P-R Int : 168 ms QRS Dur : 106 ms QT Int : 346 ms P-R-T Axes : 066 053 042 degrees QTc Int : 453 ms POOR DATA QUALITY, INTERPRETATION MAY BE ADVERSELY AFFECTED SINUS TACHYCARDIA POSSIBLE LEFT ATRIAL ENLARGEMENT INCOMPLETE RIGHT BUNDLE BRANCH BLOCK T WAVE ABNORMALITY, CONSIDER ANTERIOR ISCHEMIA ABNORMAL ECG WHEN COMPARED WITH ECG OF 09-MAR-2019 17:12, CRITERIA FOR SEPTAL INFARCT ARE NO LONGER PRESENT Confirmed by MD TAMMY, DORA ([id number]) on 12/21/2019 9:21:30 AM Referred By: Confirmed By:DORA MUNOZ MD
[2019-12-21] MEDS ORDERED: PT OWN MED DRAWER 7, Y5N ONE ×4 (09:32→19:45)
[2019-12-21] MEDS ORDERED: PATIENT'S OWN MEDICATION (NON-FORMULARY) (Mirabegron [Myrbetriq] 25 MG) GT SCH (10:00)
[2019-12-21] MEDS: ENOXAPARIN NA (PORCINE) 40 MG/0.4 ML DISP.SYRIN SQ SCH (10:24)
[2019-12-21] MEDS: CARBIDOPA/LEVODOPA 25/250 TABLET (FP) PEG SCH ×4 (10:24→21:54)
--- NOTE | 2019-12-21 10:29 | PN ---
Progress Note, Physician Chief Complaint: Aspiration pneumonia History of Present Illness: NAD non verbal - Current Medication List Current Medications: Active Medications Carbidopa/Levodopa (Sinemet 25/250 -) 1 each PEG QID [facility] Last Admin: 12/21/19 10:24 Dose: 1 each Documented by: Doxazosin Mesylate (Cardura -) 4 mg GT DAILY [facility] Enoxaparin Sodium (Lovenox -) 40 mg SQ DAILY [facility] Last Admin: 12/21/19 10:24 Dose: 40 mg Documented by: Sodium Chloride (Normal Saline -) 1,000 mls @ 83 mls/hr IV ASDIR [facility] Last Admin: 12/20/19 23:06 Dose: 83 mls/hr Documented by: Vancomycin HCl 1,000 mg/ (Dextrose) 250 mls @ 200 mls/hr IVPB Q24H [facility]; Protocol Piperacillin Sod/Tazobactam (Sod 3.375 gm/ Dextrose) 50 mls @ 100 mls/hr IVPB Q8H-IV [facility]; Protocol Vancomycin HCl (Vancomycin (Pre-Docked)) 1,000 mg in 250 mls @ 166.667 mls/hr IVPB Q24H [facility]; Protocol Stop: 12/21/19 16:29 Piperacillin Sod/Tazobactam (Sod 3.375 gm/ Dextrose) 50 mls @ 100 mls/hr IVPB Q8H-IV [facility]; Protocol Stop: 12/21/19 18:29 Last Admin: 12/21/19 10:23 Dose: 100 mls/hr Documented by: Mirtazapine (Remeron -) 15 mg GT HS [facility] Last Admin: 12/20/19 23:06 Dose: 15 mg Documented by: Non-Formulary Medication (Mirabegron [Myrbetriq]) 25 mg GT DAILY [facility] - Objective Vital Signs: Vital Signs Temperature 99.2 F 12/21/19 09:00 Pulse Rate 96 H 12/21/19 09:00 Respiratory Rate 20 12/21/19 09:00 Blood Pressure 145/81 12/21/19 09:00 O2 Sat by Pulse Oximetry (%) 96 12/21/19 09:00 Constitutional: Yes: Well Nourished, No Distress, Calm Cardiovascular: Yes: Regular Rate and Rhythm Respiratory: Yes: Regular, On Nasal O2, Rhonchi (Diffuse) Gastrointestinal: Yes: Normal Bowel Sounds, Soft Genitourinary: Yes: Incontinence Musculoskeletal: Yes: Muscle Weakness Extremities: Yes: Other (Generalized atrophy, contractures) Edema: No Peripheral Pulses WNL: Yes Neurological: Yes: Pre-Existing Deficit Labs: CBC, BMP 12/21/19 06:35 12/21/19 06:35 INR, PTT INR 1.19 (0.83-1.09) H 12/20/19 13:00 Problem List - Problems (1) Pneumonia Assessment/Plan: -CXR BL patchy infiltrates -ID consult -Pulmonary consult -IV abx -O2 tx to keep Spo2 >90% -Afebrile -Keep HOB >30 degrees at all times -Bronchodilators Problems reviewed: Yes Code(s): J18.9 - PNEUMONIA, UNSPECIFIED ORGANISM (2) Supranuclear palsy Problems reviewed: Yes Code(s): G23.1 - PROGRESSIVE SUPRANUCLEAR OPHTHALMOPLEGIA (3) Parkinson disease Assessment/Plan: -Continue Sinemet Problems reviewed: Yes Code(s): G20 - PARKINSON'S DISEASE Assessment/Plan See problem list
--- NOTE | 2019-12-21 10:51 | PN ---
Progress Note (short form) - Note Progress Note: PULMONARY CONSULTATION DICTATED 12/21/19 IMP BILATERAL PNEUMONIA PARKINSONS SUPRANUCLEAR PALSY BPH PLAN SUPPLEMENTAL O2 INHALED BRONCHODILATORS ABX ASPIRATION PRECAUTIONS FREQUENT SUCTIONING F/U CHEST X-RAYS DR REED Problem List - Problems (1) Pneumonia Code(s): J18.9 - PNEUMONIA, UNSPECIFIED ORGANISM (2) SOB (shortness of breath) Code(s): R06.02 - SHORTNESS OF BREATH (3) BPH (benign prostatic hyperplasia) Code(s): N40.0 - BENIGN PROSTATIC HYPERPLASIA WITHOUT LOWER URINRY TRACT SYMP (4) Pericardial effusion Code(s): I31.3 - PERICARDIAL EFFUSION (NONINFLAMMATORY) (5) Supranuclear palsy Code(s): G23.1 - PROGRESSIVE SUPRANUCLEAR OPHTHALMOPLEGIA
[2019-12-21] MEDS: ACETAMINOPHEN 325 MG TABLET (FP) PO PRN (11:51)
[2019-12-21] MEDS: DOXAZOSIN MESYLATE 4 MG TABLET GT SCH (11:51)
[2019-12-21] MEDS: SODIUM CHLORIDE 1,000 ML IV SCH (11:54)
--- NOTE | 2019-12-21 12:20 | CON.ID ---
Consult Consult Specialty:: infectious disease Referred by:: lidia Reason for Consultation:: pneumonia - History of Present Illness Chief Complaint: fever, lethargy History of Present Illness: 64 yo nonverbal man with parkinsons's disease and 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 and peg, bedbound and nonverbal but usually alert lives with and children help with his care requires suctioning at home now admitted with fever and lethargy found to have bilateral infiltrates on cxray covid pcr is negative history from daughter fever 101 at home no diarrhea no sob noted no recent hospitalizations - History Source History Provided By: Medical Record Limitations to Obtaining History: Clinical Condition - Past Medical History [employer]IC: Yes: Parkinson's - Past Surgical History Additional Surgical History: PEG - Alcohol/Substance Use Hx Alcohol Use: No - Smoking History Smoking history: Never smoked Have you smoked in the past 12 months: No - Social History Usual Living Arrangement: With Spouse ADL: Family Assistance History of Recent Travel: No Home Medications - Allergies Allergies/Adverse Reactions: Allergies Allergy/AdvReac Type Severity Reaction Status Date / Time No Known Allergies Allergy Verified 12/20/19 15:48 - Home Medications Home Medications: Ambulatory Orders Doxazosin Mesylate 4 mg GT DAILY 03/09/19 Mirtazapine 15 mg PO DAILY 03/09/19 Carbidopa/Levodopa 25/250 [Sinemet 25/250 -] 1 each PEG QID tablet 03/16/19 Mirabegron [Myrbetriq] 25 mg GT DAILY 12/20/19 Family Medical History Family History: Unable to Obtain Review of Systems Unable to obtain ROS, reason: unable to obtain Physical Exam Vital Signs: Vital Signs Temperature 99.2 F 12/21/19 09:00 Pulse Rate 96 H 12/21/19 09:00 Respiratory Rate 20 12/21/19 09:00 Blood Pressure 145/81 12/21/19 09:00 O2 Sat by Pulse Oximetry (%) 96 12/21/19 09:00 Constitutional: Yes: No Distress, Thin HENT: Yes: Atraumatic, Normocephalic Cardiovascular: Yes: Regular Rate and Rhythm Respiratory: Yes: Diminished Gastrointestinal: Yes: Normal Bowel Sounds, Soft (+PEG tube, site no erythema or drainage) ...Rectal Exam: Yes: Deferred Renal/: No: Merchant Present Extremities: Yes: WNL Edema: No Labs: CBC, BMP 12/21/19 06:35 12/21/19 06:35 UA negative cultures pending Imaging - Results Chest X-ray: Report Reviewed, Image Reviewed (patchy bilateral infiltrates) Problem List - Problems (1) Pneumonia Code(s): J18.9 - PNEUMONIA, UNSPECIFIED ORGANISM (2) Parkinson disease Code(s): G20 - PARKINSON'S DISEASE (3) Supranuclear palsy Code(s): G23.1 - PROGRESSIVE SUPRANUCLEAR OPHTHALMOPLEGIA Assessment/Plan zosyn/zithromax for aspiration and CAP f/u cultures urinary antigens d/c vancomycin overall prognosis is guarded
[2019-12-21] MEDS: ALBUTEROL SO4 0.083% IH SOL 2.5 MG/3 ML VIAL.NEB. NEB PRN (12:29)
--- NOTE | 2019-12-21 12:56 | CONS ---
PULMONARY CONSULTATION DATE OF CONSULTATION: 12/21/2019 REFERRING PHYSICIAN: Guillermo Bhakta MD History is obtained from medical records. Patient is nonverbal. HISTORY: Patient is a 64-year-old male, past medical history of Parkinson's with 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, status post PEG tube placement, history of aspiration pneumonia, admitted to [facility] with a 2-day history of fevers to 101, increased lethargy. Patient essentially bedbound and uses a wheelchair to be transported to the bathroom. Apparently he is normally able to take a few steps with assistance and occasionally responds to verbal commands. He apparently is awake and alert normally but nonverbal. Patient apparently according to the daughter has needed suction twice a day and is having more congestion than usual. O2 saturations are in the 90s. Patient presented to the emergency room as above. In the ER he was noted to have bilateral infiltrates and was started on broad-spectrum antibiotics and transferred to the medical floor for further management. No further history is available. PAST MEDICAL HISTORY: Again includes advanced Parkinson's with 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, status post PEG placement. CURRENT MEDICATIONS: Include Myrbetriq, Cardura, Tylenol, piperacillin, vancomycin, Lovenox, Remeron, Sinemet and normal saline. REVIEW OF SYSTEMS: Unable to obtain. PHYSICAL EXAMINATION: General: Patient is a thin male awake, nonverbal and mildly tachypneic, congested. Vital Signs: He is currently afebrile. Blood pressure is 145/81. Respiratory rate is 20. O2 saturation is 96% on 2 L nasal cannula. HEENT: He is normocephalic, atraumatic. Neck: Supple. Heart: Regular, S1, S2. Chest: Scattered bilateral rhonchi. Abdomen: Soft. Bowel sounds are positive. Extremities: No cyanosis or edema. LABORATORIES: WBC is 7, hemoglobin 12.2, hematocrit 36.8 with a platelet count of 281,000. INR is 1.19. BUN is 12. Creatinine is 0.6. COVID is non-detected. Chest x-ray: Bilateral infiltrates. IMPRESSION: 1. Bilateral pneumonia. 2. Likely aspiration. 3. Parkinson's. 4. Supranuclear palsy. 6. Benign prostatic hypertrophy. PLAN: Supplemental O2, inhaled bronchodilators, antibiotics, aspiration precautions, frequent suctioning. Continue to follow his chest x-rays. Marcelle [id number] MTDRoss
[2019-12-21] MEDS: AZITHROMYCIN IVPB 500 MG/250 ML BAG IVPB SCH (13:40)
[2019-12-21] MEDS ORDERED: VANCOMYCIN 1 GRAM (PRE-DOCKED) 1,000 MG/250 ML BAG IVPB SCH (15:00)
[2019-12-21] MEDS: ALBUTEROL SO4 2.5/IPRATROPIUM 0.5 INH SOL 3 ML VIAL.NEB. NEB SCH ×2 (15:35→20:45)
[2019-12-21] MEDS ORDERED: AMINO ACIDS/PROTEIN HYDROLYS 30 ML LIQUID.PKT PEG SCH (17:30)
[2019-12-21] MEDS: AMINO ACIDS/PROTEIN HYDROLYS 30 ML LIQUID.PKT GT SCH (18:28)
[2019-12-21] MEDS: MIRTAZAPINE 15 MG TABLET (FP) GT SCH (21:54)
[2019-12-22] MEDS ORDERED: DEXTROSE 5%-WATER - 50 ML IVPB ONE ×3 (02:02→18:04)
[2019-12-22] MEDS ORDERED: PIPERACILLIN/TAZOBACTAM 3.375 GM VIAL IVPB ONE ×3 (02:02→18:04)
[2019-12-22] MEDS: PIPERACILLIN/TAZOB 3.375 GM 3.375 GM in DEXTROSE 5%-WATER - 50 ML IVPB SCH ×3 (02:10→18:15)
[2019-12-22] MEDS: ALBUTEROL SO4 2.5/IPRATROPIUM 0.5 INH SOL 3 ML VIAL.NEB. NEB SCH ×3 (07:35→20:36)
[2019-12-22] MEDS: MULTIVIT-MINERALS ORAL LIQUID GT SCH (09:39)
[2019-12-22] MEDS: ENOXAPARIN NA (PORCINE) 40 MG/0.4 ML DISP.SYRIN SQ SCH (09:39)
[2019-12-22] MEDS: AMINO ACIDS/PROTEIN HYDROLYS 30 ML LIQUID.PKT GT SCH ×2 (09:40→18:14)
[2019-12-22] MEDS: CARBIDOPA/LEVODOPA 25/250 TABLET (FP) PEG SCH ×4 (09:40→22:51)
[2019-12-22] MEDS: DOXAZOSIN MESYLATE 4 MG TABLET GT SCH (09:40)
[2019-12-22] MEDS: AZITHROMYCIN IVPB 500 MG/250 ML BAG IVPB SCH (09:40)
--- NOTE | 2019-12-22 10:10 | PN ---
Progress Note, Physician Chief Complaint: Aspiration pneumonia History of Present Illness: NAD non verbal but alert - Current Medication List Current Medications: Active Medications Acetaminophen (Tylenol -) 650 mg PO Q4H PRN PRN Reason: PAIN 1-3 Last Admin: 12/21/19 11:51 Dose: 650 mg Documented by: Albuterol Sulfate (Ventolin 0.083% Nebulizer Soln -) 1 amp NEB Q4H PRN PRN Reason: SHORT OF BREATH/WHEEZING Last Admin: 12/21/19 12:29 Dose: 1 amp Documented by: Albuterol/Ipratropium (Duoneb -) 1 amp NEB RQID COUNTS INCLUDE 234 BEDS AT THE [facility] Last Admin: 12/22/19 07:35 Dose: 1 amp Documented by: Amino Acids (Prosource No Carb Liquid Pkt) 30 ml GT BID@0800,1730 COUNTS INCLUDE 234 BEDS AT THE [facility] Last Admin: 12/22/19 09:40 Dose: 30 ml Documented by: Carbidopa/Levodopa (Sinemet 25/250 -) 1 each PEG QID COUNTS INCLUDE 234 BEDS AT THE [facility] Last Admin: 12/22/19 09:40 Dose: 1 each Documented by: Doxazosin Mesylate (Cardura -) 4 mg GT DAILY COUNTS INCLUDE 234 BEDS AT [facility] Last Admin: 12/22/19 09:40 Dose: 4 mg Documented by: Enoxaparin Sodium (Lovenox -) 40 mg SQ DAILY COUNTS INCLUDE 234 BEDS AT [facility] Last Admin: 12/22/19 09:39 Dose: 40 mg Documented by: Piperacillin Sod/Tazobactam (Sod 3.375 gm/ Dextrose) 50 mls @ 100 mls/hr IVPB Q8H-IV [facility]; Protocol Last Admin: 12/22/19 02:10 Dose: 100 mls/hr Documented by: Sodium Chloride (Normal Saline -) 1,000 mls @ 50 mls/hr IV ASDIR [facility] Last Admin: 12/21/19 11:54 Dose: 50 mls/hr Documented by: Azithromycin (Zithromax 500mg Ivpb (Pre-Docked)) 500 mg in 250 mls @ 250 mls/hr IVPB DAILY [facility] Last Admin: 12/22/19 09:40 Dose: 250 mls/hr Documented by: Mirtazapine (Remeron -) 15 mg GT HS [facility] Last Admin: 12/21/19 21:54 Dose: 15 mg Documented by: Multivitamins/Minerals (Certavite-Antioxidant Liquid) 15 ml GT DAILY COUNTS INCLUDE 234 BEDS AT [facility] Last Admin: 12/22/19 09:39 Dose: 15 ml Documented by: - Objective Vital Signs: Vital Signs Temperature 98.6 F 12/22/19 10:01 Pulse Rate 82 12/22/19 10:01 Respiratory Rate 20 12/22/19 10:01 Blood Pressure 133/78 12/22/19 10:01 O2 Sat by Pulse Oximetry (%) 96 12/22/19 10:01 Constitutional: Yes: Well Nourished, No Distress, Calm Cardiovascular: Yes: Regular Rate and Rhythm Respiratory: Yes: Regular, Rhonchi (diffuse) Gastrointestinal: Yes: Normal Bowel Sounds, Soft Genitourinary: Yes: Incontinence Musculoskeletal: Yes: Muscle Weakness Extremities: Yes: WNL Edema: No Peripheral Pulses WNL: Yes Neurological: Yes: Alert, Pre-Existing Deficit Labs: CBC, BMP 12/21/19 06:35 12/21/19 06:35 INR, PTT INR 1.19 (0.83-1.09) H 12/20/19 13:00 Problem List - Problems (1) Pneumonia Assessment/Plan: -CXR BL patchy infiltrates -ID consult -Pulmonary consult -IV abx -O2 tx to keep Spo2 >90% -Afebrile -Keep HOB >30 degrees at all times -Bronchodilators Problems reviewed: Yes Code(s): J18.9 - PNEUMONIA, UNSPECIFIED ORGANISM (2) Supranuclear palsy Problems reviewed: Yes Code(s): G23.1 - PROGRESSIVE SUPRANUCLEAR OPHTHALMOPLEGIA (3) Parkinson disease Assessment/Plan: -Continue Sinemet Problems reviewed: Yes Code(s): G20 - PARKINSON'S DISEASE Assessment/Plan See problem list
--- NOTE | 2019-12-22 10:55 | PN ---
Progress Note (short form) - Note Progress Note: PULMONARY Pt nonverbal. No fevers recorded. Vital Signs Period Temp Pulse Resp BP Sys/Villegas Pulse Ox Last 24 Hr 97.6 F-98.6 F 82-102 20-20 122-137/75-84 93-98 Gen: nonverbal Heart: RRR Lung: bilateral rhonchi Abd: soft, nontender Ext: no edema CBC, BMP 12/21/19 06:35 12/21/19 06:35 Active Medications Acetaminophen (Tylenol -) 650 mg PO Q4H PRN PRN Reason: PAIN 1-3 Last Admin: 12/21/19 11:51 Dose: 650 mg Documented by: Albuterol Sulfate (Ventolin 0.083% Nebulizer Soln -) 1 amp NEB Q4H PRN PRN Reason: SHORT OF BREATH/WHEEZING Last Admin: 12/21/19 12:29 Dose: 1 amp Documented by: Albuterol/Ipratropium (Duoneb -) 1 amp NEB RQID [facility] Last Admin: 12/22/19 07:35 Dose: 1 amp Documented by: Amino Acids (Prosource No Carb Liquid Pkt) 30 ml GT BID@0800,1730 [facility] Last Admin: 12/22/19 09:40 Dose: 30 ml Documented by: Carbidopa/Levodopa (Sinemet 25/250 -) 1 each PEG QID [facility] Last Admin: 12/22/19 09:40 Dose: 1 each Documented by: Doxazosin Mesylate (Cardura -) 4 mg GT DAILY [facility] Last Admin: 12/22/19 09:40 Dose: 4 mg Documented by: Enoxaparin Sodium (Lovenox -) 40 mg SQ DAILY [facility] Last Admin: 12/22/19 09:39 Dose: 40 mg Documented by: Piperacillin Sod/Tazobactam (Sod 3.375 gm/ Dextrose) 50 mls @ 100 mls/hr IVPB Q8H-IV [facility]; Protocol Last Admin: 12/22/19 10:47 Dose: 100 mls/hr Documented by: Sodium Chloride (Normal Saline -) 1,000 mls @ 50 mls/hr IV ASDIR [facility] Last Admin: 12/21/19 11:54 Dose: 50 mls/hr Documented by: Azithromycin (Zithromax 500mg Ivpb (Pre-Docked)) 500 mg in 250 mls @ 250 mls/hr IVPB DAILY [facility] Last Admin: 12/22/19 09:40 Dose: 250 mls/hr Documented by: Mirtazapine (Remeron -) 15 mg GT HS [facility] Last Admin: 12/21/19 21:54 Dose: 15 mg Documented by: Multivitamins/Minerals (Certavite-Antioxidant Liquid) 15 ml GT DAILY [facility] Last Admin: 12/22/19 09:39 Dose: 15 ml Documented by: A/P Pneumonia likely Aspiration Parkinsons Supranuclear Palsy BPH - continue antibiotics - f/u cultures - O2 to keep SpO2 >90% - inhaled bronchodilators - aspiration precautions - DVT prophylaxis
--- NOTE | 2019-12-22 13:17 | PN ---
Progress Note (short form) - Note Progress Note: quite congested opens eyes Vital Signs Period Temp Pulse Resp BP Sys/Villegas Pulse Ox Last 24 Hr 97.6 F-98.6 F 82-95 20-20 132-136/62-84 93-98 austen-rrr lungs bilateral rhonchi abd-soft, +GT ext no edema CBC, BMP 12/21/19 06:35 12/21/19 06:35 Microbiology 12/20/19 14:29 Blood - Peripheral Venous Blood Culture - Preliminary NO GROWTH OBTAINED AFTER 48 HOURS, INCUBATION TO CONTINUE FOR 3 DAYS. 12/20/19 13:00 Blood - Peripheral Venous Blood Culture - Preliminary NO GROWTH OBTAINED AFTER 48 HOURS, INCUBATION TO CONTINUE FOR 3 DAYS. 12/20/19 21:30 Sputum - Expectorated Gram Stain - Final 12/20/19 21:30 Sputum - Expectorated Sputum Culture - Preliminary Non Lactose Fermenting Gnb Non Lactose Fermenting Gnb#2 12/20/19 15:00 Urine - Urine - Catheterized Urine Culture - Final NO GROWTH OBTAINED 12/21/19 03:00 Urine - Urine Clean Catch Legionella Antigen - Final 12/21/19 03:00 Urine - Urine Clean Catch Streptococcus pneumoniae Antigen (M - Final a/p aspiration pneumonia-continue zosyn, will d/c zithromax, legionella is negative f/u sputum culture in am history of suprnuclear palsy/parkinsons disease Problem List - Problems (1) Pneumonia Code(s): J18.9 - PNEUMONIA, UNSPECIFIED ORGANISM (2) Parkinson disease Code(s): G20 - PARKINSON'S DISEASE (3) Supranuclear palsy Code(s): G23.1 - PROGRESSIVE SUPRANUCLEAR OPHTHALMOPLEGIA
[2019-12-22] MEDS: SODIUM CHLORIDE 1,000 ML IV SCH (13:21)
[2019-12-22] MEDS ORDERED: PT OWN MED DRAWER 7, Y5N ONE (22:50)
[2019-12-22] MEDS: MIRTAZAPINE 15 MG TABLET (FP) GT SCH (22:51)
[2019-12-22] MEDS: ALBUTEROL SO4 0.083% IH SOL 2.5 MG/3 ML VIAL.NEB. NEB PRN (23:29)
[2019-12-23] MEDS ORDERED: PIPERACILLIN/TAZOBACTAM 3.375 GM VIAL IVPB ONE ×4 (01:22→21:46)
[2019-12-23] MEDS ORDERED: DEXTROSE 5%-WATER - 50 ML IVPB ONE ×4 (01:22→21:46)
[2019-12-23] MEDS: PIPERACILLIN/TAZOB 3.375 GM 3.375 GM in DEXTROSE 5%-WATER - 50 ML IVPB SCH ×4 (01:24→22:00)
[2019-12-23] MEDS ORDERED: ALBUTEROL SO4 0.083% IH SOL 2.5 MG/3 ML VIAL.NEB. NEB ONE (04:46)
[2019-12-23] MEDS: ALBUTEROL SO4 0.083% IH SOL 2.5 MG/3 ML VIAL.NEB. NEB PRN (04:58)
[2019-12-23] MEDS: ALBUTEROL SO4 2.5/IPRATROPIUM 0.5 INH SOL 3 ML VIAL.NEB. NEB SCH ×5 (08:26→15:45)
[2019-12-23] MEDS: DOXAZOSIN MESYLATE 4 MG TABLET GT SCH (09:30)
[2019-12-23] MEDS: CARBIDOPA/LEVODOPA 25/250 TABLET (FP) PEG SCH ×4 (09:30→22:05)
[2019-12-23] MEDS: AMINO ACIDS/PROTEIN HYDROLYS 30 ML LIQUID.PKT GT SCH ×2 (09:30→16:30)
[2019-12-23] MEDS: SODIUM CHLORIDE 1,000 ML IV SCH ×2 (09:31→14:23)
[2019-12-23] MEDS: MULTIVIT-MINERALS ORAL LIQUID GT SCH (09:31)
[2019-12-23] MEDS: ACETAMINOPHEN 325 MG TABLET (FP) PO PRN (09:31)
[2019-12-23] MEDS: ENOXAPARIN NA (PORCINE) 40 MG/0.4 ML DISP.SYRIN SQ SCH (09:32)
--- NOTE | 2019-12-23 09:54 | PN ---
Progress Note, Physician Chief Complaint: Aspiration pneumonia History of Present Illness: NAD non verbal but alert - Current Medication List Current Medications: Active Medications Acetaminophen (Tylenol -) 650 mg PO Q4H PRN PRN Reason: PAIN 1-3 Last Admin: 12/23/19 09:31 Dose: 650 mg Documented by: Albuterol Sulfate (Ventolin 0.083% Nebulizer Soln -) 1 amp NEB Q4H PRN PRN Reason: SHORT OF BREATH/WHEEZING Last Admin: 12/23/19 04:58 Dose: 1 amp Documented by: Albuterol/Ipratropium (Duoneb -) 1 amp NEB RQID [facility] Last Admin: 12/22/19 20:36 Dose: 1 amp Documented by: Amino Acids (Prosource No Carb Liquid Pkt) 30 ml GT BID@0800,1730 [facility] Last Admin: 12/23/19 09:30 Dose: 30 ml Documented by: Carbidopa/Levodopa (Sinemet 25/250 -) 1 each PEG QID [facility] Last Admin: 12/23/19 09:30 Dose: 1 each Documented by: Doxazosin Mesylate (Cardura -) 4 mg GT DAILY [facility] Last Admin: 12/23/19 09:30 Dose: 4 mg Documented by: Enoxaparin Sodium (Lovenox -) 40 mg SQ DAILY [facility] Last Admin: 12/23/19 09:32 Dose: 40 mg Documented by: Piperacillin Sod/Tazobactam (Sod 3.375 gm/ Dextrose) 50 mls @ 100 mls/hr IVPB Q8H-IV [facility]; Protocol Last Admin: 12/23/19 09:30 Dose: 100 mls/hr Documented by: Sodium Chloride (Normal Saline -) 1,000 mls @ 50 mls/hr IV ASDIR [facility] Last Admin: 12/23/19 09:31 Dose: 50 mls/hr Documented by: Mirtazapine (Remeron -) 15 mg GT HS [facility] Last Admin: 12/22/19 22:51 Dose: 15 mg Documented by: Multivitamins/Minerals (Certavite-Antioxidant Liquid) 15 ml GT DAILY [facility] Last Admin: 12/23/19 09:31 Dose: 15 ml Documented by: - Objective Vital Signs: Vital Signs Temperature 98.2 F 12/23/19 05:57 Pulse Rate 95 H 12/23/19 05:57 Respiratory Rate 20 07/31/20 05:57 Blood Pressure 124/72 12/23/19 05:57 O2 Sat by Pulse Oximetry (%) 95 12/23/19 05:57 Constitutional: Yes: Well Nourished, No Distress, Calm Cardiovascular: Yes: Regular Rate and Rhythm Respiratory: Yes: Regular, On Nasal O2, Rhonchi (diffuse) Gastrointestinal: Yes: Normal Bowel Sounds, Soft Genitourinary: Yes: Incontinence Musculoskeletal: Yes: Muscle Weakness Extremities: Yes: Other (generalized atrophy-contracted) Edema: No Peripheral Pulses WNL: Yes Neurological: Yes: Pre-Existing Deficit Labs: CBC, BMP 12/21/19 06:35 12/21/19 06:35 INR, PTT INR 1.19 (0.83-1.09) H 12/20/19 13:00 Problem List - Problems (1) Pneumonia Assessment/Plan: -CXR BL patchy infiltrates -ID consult -Pulmonary consult -IV abx -O2 tx to keep Spo2 >90% -Afebrile -Keep HOB >30 degrees at all times -Bronchodilators Problems reviewed: Yes Code(s): J18.9 - PNEUMONIA, UNSPECIFIED ORGANISM (2) Supranuclear palsy Problems reviewed: Yes Code(s): G23.1 - PROGRESSIVE SUPRANUCLEAR OPHTHALMOPLEGIA (3) Parkinson disease Assessment/Plan: -Continue Sinemet Problems reviewed: Yes Code(s): G20 - PARKINSON'S DISEASE (4) Functional quadriplegia Problems reviewed: Yes Code(s): R53.2 - FUNCTIONAL QUADRIPLEGIA Assessment/Plan See problem list Spoke to nadya Huffman yesterday about plan and status update
--- NOTE | 2019-12-23 10:50 | PN ---
Progress Note, Physician History of Present Illness: PULMONARY AWAKE,NON-VERBAL,LESS CONGESTED,LESS DYSPNEIC - Current Medication List Current Medications: Active Medications Acetaminophen (Tylenol -) 650 mg PO Q4H PRN PRN Reason: PAIN 1-3 Last Admin: 12/23/19 09:31 Dose: 650 mg Documented by: Albuterol Sulfate (Ventolin 0.083% Nebulizer Soln -) 1 amp NEB Q4H PRN PRN Reason: SHORT OF BREATH/WHEEZING Last Admin: 12/23/19 04:58 Dose: 1 amp Documented by: Albuterol/Ipratropium (Duoneb -) 1 amp NEB RQID [facility] Last Admin: 12/22/19 20:36 Dose: 1 amp Documented by: Amino Acids (Prosource No Carb Liquid Pkt) 30 ml GT BID@0800,1730 [facility] Last Admin: 12/23/19 09:30 Dose: 30 ml Documented by: Carbidopa/Levodopa (Sinemet 25/250 -) 1 each PEG QID [facility] Last Admin: 12/23/19 09:30 Dose: 1 each Documented by: Doxazosin Mesylate (Cardura -) 4 mg GT DAILY [facility] Last Admin: 12/23/19 09:30 Dose: 4 mg Documented by: Enoxaparin Sodium (Lovenox -) 40 mg SQ DAILY [facility] Last Admin: 12/23/19 09:32 Dose: 40 mg Documented by: Piperacillin Sod/Tazobactam (Sod 3.375 gm/ Dextrose) 50 mls @ 100 mls/hr IVPB Q8H-IV [facility]; Protocol Last Admin: 12/23/19 09:30 Dose: 100 mls/hr Documented by: Sodium Chloride (Normal Saline -) 1,000 mls @ 50 mls/hr IV ASDIR [facility] Last Admin: 12/23/19 09:31 Dose: 50 mls/hr Documented by: Mirtazapine (Remeron -) 15 mg GT HS [facility] Last Admin: 12/22/19 22:51 Dose: 15 mg Documented by: Multivitamins/Minerals (Certavite-Antioxidant Liquid) 15 ml GT DAILY [facility] Last Admin: 12/23/19 09:31 Dose: 15 ml Documented by: - Objective Vital Signs: Vital Signs Temperature 98.5 F 12/23/19 10:00 Pulse Rate 94 H 12/23/19 10:00 Respiratory Rate 20 12/23/19 10:00 Blood Pressure 130/71 12/23/19 10:00 O2 Sat by Pulse Oximetry (%) 95 12/23/19 10:00 Constitutional: Yes: Well Nourished, Calm Eyes: Yes: WNL HENT: Yes: WNL Neck: Yes: WNL Cardiovascular: Yes: Regular Rate and Rhythm, S1, S2 Respiratory: Yes: Rhonchi (FEW SCATTERED RHONCHI) Gastrointestinal: Yes: Normal Bowel Sounds, Soft Extremities: Yes: WNL Edema: No Labs: CBC, BMP 12/21/19 06:35 Problem List - Problems (1) Pneumonia Code(s): J18.9 - PNEUMONIA, UNSPECIFIED ORGANISM (2) SOB (shortness of breath) Code(s): R06.02 - SHORTNESS OF BREATH (3) BPH (benign prostatic hyperplasia) Code(s): N40.0 - BENIGN PROSTATIC HYPERPLASIA WITHOUT LOWER URINRY TRACT SYMP (4) Pericardial effusion Code(s): I31.3 - PERICARDIAL EFFUSION (NONINFLAMMATORY) (5) Supranuclear palsy Code(s): G23.1 - PROGRESSIVE SUPRANUCLEAR OPHTHALMOPLEGIA Assessment/Plan IMP BILATERAL PNEUMONIA PARKINSONS SUPRANUCLEAR PALSY BPH PLAN SUPPLEMENTAL O2 INHALED BRONCHODILATORS CONTINUE ABX ASPIRATION PRECAUTIONS FREQUENT SUCTIONING F/U CHEST X-RAYS DR REED Problem List - Problems (1) Pneumonia Code(s): J18.9 - PNEUMONIA, UNSPECIFIED ORGANISM (2) SOB (shortness of breath) Code(s): R06.02 - SHORTNESS OF BREATH (3) BPH (benign prostatic hyperplasia) Code(s): N40.0 - BENIGN PROSTATIC HYPERPLASIA WITHOUT LOWER URINRY TRACT SYMP (4) Pericardial effusion Code(s): I31.3 - PERICARDIAL EFFUSION (NONINFLAMMATORY) (5) Supranuclear palsy Code(s): G23.1 - PROGRESSIVE SUPRANUCLEAR OPHTHALMOPLEGIA
--- NOTE | 2019-12-23 12:04 | PN ---
Progress Note (short form) - Note Progress Note: nonverbal, opens eyes Vital Signs Period Temp Pulse Resp BP Sys/Villegas Pulse Ox Last 24 Hr 98 F-98.9 F 94-106 20-25 124-146/62-82 93-96 cor-rrr lungs decreased bs at bases abd soft, +GT ext no edema CBC, BMP 12/21/19 06:35 12/21/19 06:35 Microbiology 12/20/19 21:30 Sputum - Expectorated Gram Stain - Final 12/20/19 21:30 Sputum - Expectorated Sputum Culture - Final Pseudomonas Aeruginosa 12/20/19 14:29 Blood - Peripheral Venous Blood Culture - Preliminary NO GROWTH OBTAINED AFTER 48 HOURS, INCUBATION TO CONTINUE FOR 3 DAYS. 12/20/19 13:00 Blood - Peripheral Venous Blood Culture - Preliminary NO GROWTH OBTAINED AFTER 48 HOURS, INCUBATION TO CONTINUE FOR 3 DAYS. 12/20/19 15:00 Urine - Urine - Catheterized Urine Culture - Final NO GROWTH OBTAINED 12/21/19 03:00 Urine - Urine Clean Catch Legionella Antigen - Final 12/21/19 03:00 Urine - Urine Clean Catch Streptococcus pneumoniae Antigen (M - Final a/p aspiration pneumonia-continue zosyn, carbapenem resistant pseudomonas, continue zosyn contact isolation for the pseudomonas history of suprnuclear palsy/parkinsons disease Problem List - Problems (1) Pneumonia Code(s): J18.9 - PNEUMONIA, UNSPECIFIED ORGANISM (2) Parkinson disease Code(s): G20 - PARKINSON'S DISEASE (3) Supranuclear palsy Code(s): G23.1 - PROGRESSIVE SUPRANUCLEAR OPHTHALMOPLEGIA
[2019-12-23] MEDS: MIRTAZAPINE 15 MG TABLET (FP) GT SCH (22:05)
[2019-12-24] MEDS: ALBUTEROL SO4 0.083% IH SOL 2.5 MG/3 ML VIAL.NEB. NEB PRN ×2 (01:29→05:54)
[2019-12-24] MEDS ORDERED: PIPERACILLIN/TAZOBACTAM 3.375 GM VIAL IVPB ONE ×5 (02:04→23:17)
[2019-12-24] MEDS ORDERED: DEXTROSE 5%-WATER - 50 ML IVPB ONE ×5 (02:04→23:17)
[2019-12-24] MEDS: PIPERACILLIN/TAZOB 3.375 GM 3.375 GM in DEXTROSE 5%-WATER - 50 ML IVPB SCH ×4 (02:06→21:33)
[2019-12-24] MEDS: SODIUM CHLORIDE 1,000 ML IV SCH ×3 (05:51→17:59)
[2019-12-24] MEDS: ALBUTEROL SO4 2.5/IPRATROPIUM 0.5 INH SOL 3 ML VIAL.NEB. NEB SCH ×4 (07:40→20:28)
[2019-12-24] MEDS: AMINO ACIDS/PROTEIN HYDROLYS 30 ML LIQUID.PKT GT SCH ×2 (08:59→17:04)
[2019-12-24] MEDS: DOXAZOSIN MESYLATE 4 MG TABLET GT SCH (09:00)
[2019-12-24] MEDS: ENOXAPARIN NA (PORCINE) 40 MG/0.4 ML DISP.SYRIN SQ SCH (09:00)
[2019-12-24] MEDS: MULTIVIT-MINERALS ORAL LIQUID GT SCH (09:00)
[2019-12-24] MEDS: CARBIDOPA/LEVODOPA 25/250 TABLET (FP) PEG SCH ×4 (09:01→21:34)
--- NOTE | 2019-12-24 11:55 | PN ---
Progress Note (short form) - Note Progress Note: PULMONARY Pt nonverbal. No fevers recorded. Vital Signs Period Temp Pulse Resp BP Sys/Villegas Pulse Ox Last 24 Hr 97.9 F-98.9 F 81-94 20-22 122-144/71-80 93-98 Gen: nonverbal Heart: RRR Lung: bilateral rhonchi Abd: soft, nontender Ext: no edema CBC, BMP 12/21/19 06:35 12/21/19 06:35 Active Medications Acetaminophen (Tylenol -) 650 mg PO Q4H PRN PRN Reason: PAIN 1-3 Last Admin: 12/23/19 09:31 Dose: 650 mg Documented by: Albuterol Sulfate (Ventolin 0.083% Nebulizer Soln -) 1 amp NEB Q4H PRN PRN Reason: SHORT OF BREATH/WHEEZING Last Admin: 12/24/19 05:54 Dose: 1 amp Documented by: Albuterol/Ipratropium (Duoneb -) 1 amp NEB RQID [facility] Last Admin: 12/24/19 11:54 Dose: 1 amp Documented by: Amino Acids (Prosource No Carb Liquid Pkt) 30 ml GT BID@0800,1730 [facility] Last Admin: 12/24/19 08:59 Dose: 30 ml Documented by: Carbidopa/Levodopa (Sinemet 25/250 -) 1 each PEG QID [facility] Last Admin: 12/24/19 09:01 Dose: 1 each Documented by: Doxazosin Mesylate (Cardura -) 4 mg GT DAILY [facility] Last Admin: 12/24/19 09:00 Dose: 4 mg Documented by: Enoxaparin Sodium (Lovenox -) 40 mg SQ DAILY [facility] Last Admin: 12/24/19 09:00 Dose: 40 mg Documented by: Sodium Chloride (Normal Saline -) 1,000 mls @ 50 mls/hr IV ASDIR [facility] Last Admin: 12/24/19 05:51 Dose: 50 mls/hr Documented by: Piperacillin Sod/Tazobactam (Sod 3.375 gm/ Dextrose) 50 mls @ 100 mls/hr IVPB Q6H-IV [facility]; Protocol Last Admin: 12/24/19 09:01 Dose: 100 mls/hr Documented by: Mirtazapine (Remeron -) 15 mg GT HS [facility] Last Admin: 12/23/19 22:05 Dose: 15 mg Documented by: Multivitamins/Minerals (Certavite-Antioxidant Liquid) 15 ml GT DAILY [facility] Last Admin: 12/24/19 09:00 Dose: 15 ml Documented by: A/P Pneumonia likely Aspiration Parkinsons Supranuclear Palsy BPH - continue antibiotics - O2 to keep SpO2 >90% - inhaled bronchodilators - aspiration precautions - DVT prophylaxis
--- NOTE | 2019-12-24 12:30 | PN ---
Progress Note, Physician Chief Complaint: EVENTS AND NOTES REVIEWED NO CHANGES OVERNIGHT - Current Medication List Current Medications: Active Medications Acetaminophen (Tylenol -) 650 mg PO Q4H PRN PRN Reason: PAIN 1-3 Last Admin: 12/23/19 09:31 Dose: 650 mg Documented by: Albuterol Sulfate (Ventolin 0.083% Nebulizer Soln -) 1 amp NEB Q4H PRN PRN Reason: SHORT OF BREATH/WHEEZING Last Admin: 12/24/19 05:54 Dose: 1 amp Documented by: Albuterol/Ipratropium (Duoneb -) 1 amp NEB RQID [facility] Last Admin: 12/24/19 11:54 Dose: 1 amp Documented by: Amino Acids (Prosource No Carb Liquid Pkt) 30 ml GT BID@0800,1730 [facility] Last Admin: 12/24/19 08:59 Dose: 30 ml Documented by: Carbidopa/Levodopa (Sinemet 25/250 -) 1 each PEG QID [facility] Last Admin: 12/24/19 09:01 Dose: 1 each Documented by: Doxazosin Mesylate (Cardura -) 4 mg GT DAILY [facility] Last Admin: 12/24/19 09:00 Dose: 4 mg Documented by: Enoxaparin Sodium (Lovenox -) 40 mg SQ DAILY [facility] Last Admin: 12/24/19 09:00 Dose: 40 mg Documented by: Sodium Chloride (Normal Saline -) 1,000 mls @ 50 mls/hr IV ASDIR [facility] Last Admin: 12/24/19 05:51 Dose: 50 mls/hr Documented by: Piperacillin Sod/Tazobactam (Sod 3.375 gm/ Dextrose) 50 mls @ 100 mls/hr IVPB Q6H-IV [facility]; Protocol Last Admin: 12/24/19 09:01 Dose: 100 mls/hr Documented by: Mirtazapine (Remeron -) 15 mg GT HS [facility] Last Admin: 12/23/19 22:05 Dose: 15 mg Documented by: Multivitamins/Minerals (Certavite-Antioxidant Liquid) 15 ml GT DAILY [facility] Last Admin: 12/24/19 09:00 Dose: 15 ml Documented by: - Objective Vital Signs: Vital Signs Temperature 98.3 F 12/24/19 06:00 Pulse Rate 90 12/24/19 06:00 Respiratory Rate 22 H 12/24/19 06:00 Blood Pressure 142/76 12/24/19 06:00 O2 Sat by Pulse Oximetry (%) 93 L 12/24/19 06:00 Constitutional: Yes: Moderate Distress Cardiovascular: Yes: Pulse Irregular Respiratory: Yes: On Nasal O2 Gastrointestinal: Yes: Soft Genitourinary: Yes: Merchant Present Musculoskeletal: Yes: Muscle Weakness Neurological: Yes: Confusion, Weakness Labs: CBC, BMP 12/21/19 06:35 12/21/19 06:35 INR, PTT INR 1.19 (0.83-1.09) H 12/20/19 13:00 Problem List - Problems (1) Functional quadriplegia Code(s): R53.2 - FUNCTIONAL QUADRIPLEGIA (2) Parkinson disease Code(s): G20 - PARKINSON'S DISEASE (3) Pneumonia Code(s): J18.9 - PNEUMONIA, UNSPECIFIED ORGANISM (4) SOB (shortness of breath) Code(s): R06.02 - SHORTNESS OF BREATH (5) Sepsis Code(s): A41.9 - SEPSIS, UNSPECIFIED ORGANISM (6) BPH (benign prostatic hyperplasia) Code(s): N40.0 - BENIGN PROSTATIC HYPERPLASIA WITHOUT LOWER URINRY TRACT SYMP Assessment/Plan IV ABX PER ID NEUROLOGICAL CHANGES ARE CHRONIC WILL ORDER PT EVAL PER FAMILY REQUEST DVT PROPHYLAXIS FEEDS RESTARTED
[2019-12-24] MEDS: ACETAMINOPHEN 325 MG TABLET (FP) PO PRN (21:34)
[2019-12-24] MEDS: MIRTAZAPINE 15 MG TABLET (FP) GT SCH (21:34)
[2019-12-25] MEDS: ALBUTEROL SO4 0.083% IH SOL 2.5 MG/3 ML VIAL.NEB. NEB PRN (00:58)
[2019-12-25] MEDS: PIPERACILLIN/TAZOB 3.375 GM 3.375 GM in DEXTROSE 5%-WATER - 50 ML IVPB SCH ×4 (03:01→20:49)
[2019-12-25] MEDS: ALBUTEROL SO4 2.5/IPRATROPIUM 0.5 INH SOL 3 ML VIAL.NEB. NEB SCH ×4 (07:40→20:18)
[2019-12-25] MEDS ORDERED: PIPERACILLIN/TAZOBACTAM 3.375 GM VIAL IVPB ONE ×3 (08:44→19:26)
[2019-12-25] MEDS ORDERED: DEXTROSE 5%-WATER - 50 ML IVPB ONE ×3 (08:45→19:26)
[2019-12-25] MEDS ORDERED: PT OWN MED DRAWER 7, Y5N ONE ×3 (08:49→17:23)
[2019-12-25] MEDS: AMINO ACIDS/PROTEIN HYDROLYS 30 ML LIQUID.PKT GT SCH ×2 (08:52→17:24)
[2019-12-25] MEDS: ACETAMINOPHEN 325 MG TABLET (FP) PO PRN ×2 (08:53→21:13)
[2019-12-25] MEDS: CARBIDOPA/LEVODOPA 25/250 TABLET (FP) PEG SCH ×4 (09:04→21:13)
[2019-12-25] MEDS: DOXAZOSIN MESYLATE 4 MG TABLET GT SCH (09:04)
[2019-12-25] MEDS: MULTIVIT-MINERALS ORAL LIQUID GT SCH (09:04)
[2019-12-25] MEDS: ENOXAPARIN NA (PORCINE) 40 MG/0.4 ML DISP.SYRIN SQ SCH (09:05)
[2019-12-25] MEDS: SODIUM CHLORIDE 1,000 ML IV SCH ×2 (09:05→13:49)
--- NOTE | 2019-12-25 11:39 | PN ---
Progress Note (short form) - Note Progress Note: PULMONARY Pt nonverbal. No fevers recorded. Vital Signs Period Temp Pulse Resp BP Sys/Villegas Pulse Ox Last 24 Hr 97.3 F-99.0 F 83-94 18-20 124-159/67-87 93-98 Gen: nonverbal Heart: RRR Lung: bilateral rhonchi Abd: soft, nontender Ext: no edema CBC, BMP 12/21/19 06:35 12/21/19 06:35 Active Medications Acetaminophen (Tylenol -) 650 mg PO Q4H PRN PRN Reason: PAIN 1-3 Last Admin: 12/25/19 08:53 Dose: 650 mg Documented by: Albuterol Sulfate (Ventolin 0.083% Nebulizer Soln -) 1 amp NEB Q4H PRN PRN Reason: SHORT OF BREATH/WHEEZING Last Admin: 12/25/19 00:58 Dose: 1 amp Documented by: Albuterol/Ipratropium (Duoneb -) 1 amp NEB RQID [facility] Last Admin: 12/25/19 11:34 Dose: 1 amp Documented by: Amino Acids (Prosource No Carb Liquid Pkt) 30 ml GT BID@0800,1730 [facility] Last Admin: 12/25/19 08:52 Dose: 30 ml Documented by: Carbidopa/Levodopa (Sinemet 25/250 -) 1 each PEG QID [facility] Last Admin: 12/25/19 09:04 Dose: 1 each Documented by: Doxazosin Mesylate (Cardura -) 4 mg GT DAILY [facility] Last Admin: 12/25/19 09:04 Dose: 4 mg Documented by: Enoxaparin Sodium (Lovenox -) 40 mg SQ DAILY [facility] Last Admin: 12/25/19 09:05 Dose: 40 mg Documented by: Sodium Chloride (Normal Saline -) 1,000 mls @ 50 mls/hr IV ASDIR [facility] Last Admin: 12/25/19 09:05 Dose: 50 mls/hr Documented by: Piperacillin Sod/Tazobactam (Sod 3.375 gm/ Dextrose) 50 mls @ 100 mls/hr IVPB Q6H-IV [facility]; Protocol Last Admin: 12/25/19 08:52 Dose: 100 mls/hr Documented by: Mirtazapine (Remeron -) 15 mg GT HS [facility] Last Admin: 12/24/19 21:34 Dose: 15 mg Documented by: Multivitamins/Minerals (Certavite-Antioxidant Liquid) 15 ml GT DAILY [facility] Last Admin: 12/25/19 09:04 Dose: 15 ml Documented by: Oxycodone HCl (Roxicodone -) 5 mg GT Q6H PRN PRN Reason: PAIN LEVEL 6-10 A/P Pneumonia likely Aspiration Parkinsons Supranuclear Palsy BPH - continue antibiotics - O2 to keep SpO2 >90% - inhaled bronchodilators - aspiration precautions - DVT prophylaxis
--- NOTE | 2019-12-25 13:29 | PN ---
Progress Note, Physician Chief Complaint: AWAKE CONFUSED NO EVENTS OVERNIGHT - Current Medication List Current Medications: Active Medications Acetaminophen (Tylenol -) 650 mg PO Q4H PRN PRN Reason: PAIN 1-3 Last Admin: 12/25/19 08:53 Dose: 650 mg Documented by: Albuterol Sulfate (Ventolin 0.083% Nebulizer Soln -) 1 amp NEB Q4H PRN PRN Reason: SHORT OF BREATH/WHEEZING Last Admin: 12/25/19 00:58 Dose: 1 amp Documented by: Albuterol/Ipratropium (Duoneb -) 1 amp NEB RQID [facility] Last Admin: 12/25/19 11:34 Dose: 1 amp Documented by: Amino Acids (Prosource No Carb Liquid Pkt) 30 ml GT BID@0800,1730 [facility] Last Admin: 12/25/19 08:52 Dose: 30 ml Documented by: Carbidopa/Levodopa (Sinemet 25/250 -) 1 each PEG QID [facility] Last Admin: 12/25/19 09:04 Dose: 1 each Documented by: Doxazosin Mesylate (Cardura -) 4 mg GT DAILY [facility] Last Admin: 12/25/19 09:04 Dose: 4 mg Documented by: Enoxaparin Sodium (Lovenox -) 40 mg SQ DAILY [facility] Last Admin: 12/25/19 09:05 Dose: 40 mg Documented by: Sodium Chloride (Normal Saline -) 1,000 mls @ 50 mls/hr IV ASDIR [facility] Last Admin: 12/25/19 09:05 Dose: 50 mls/hr Documented by: Piperacillin Sod/Tazobactam (Sod 3.375 gm/ Dextrose) 50 mls @ 100 mls/hr IVPB Q6H-IV [facility]; Protocol Last Admin: 12/25/19 08:52 Dose: 100 mls/hr Documented by: Mirtazapine (Remeron -) 15 mg GT HS [facility] Last Admin: 12/24/19 21:34 Dose: 15 mg Documented by: Multivitamins/Minerals (Certavite-Antioxidant Liquid) 15 ml GT DAILY [facility] Last Admin: 12/25/19 09:04 Dose: 15 ml Documented by: Oxycodone HCl (Roxicodone -) 5 mg GT Q6H PRN PRN Reason: PAIN LEVEL 6-10 - Objective Vital Signs: Vital Signs Temperature 98.9 F 12/25/19 10:00 Pulse Rate 87 12/25/19 10:00 Respiratory Rate 20 12/25/19 10:00 Blood Pressure 140/86 12/25/19 10:00 O2 Sat by Pulse Oximetry (%) 97 12/25/19 10:00 Constitutional: Yes: Mild Distress Cardiovascular: Yes: Regular Rate and Rhythm Respiratory: Yes: Diminished, Mechanically Ventilated Gastrointestinal: Yes: Other (GT) Genitourinary: Yes: Incontinence Musculoskeletal: Yes: Muscle Weakness Neurological: Yes: Confusion Labs: CBC, BMP 12/21/19 06:35 12/21/19 06:35 INR, PTT INR 1.19 (0.83-1.09) H 12/20/19 13:00 Problem List - Problems (1) Functional quadriplegia Code(s): R53.2 - FUNCTIONAL QUADRIPLEGIA (2) Parkinson disease Code(s): G20 - PARKINSON'S DISEASE (3) Pneumonia Code(s): J18.9 - PNEUMONIA, UNSPECIFIED ORGANISM (4) SOB (shortness of breath) Code(s): R06.02 - SHORTNESS OF BREATH (5) Sepsis Code(s): A41.9 - SEPSIS, UNSPECIFIED ORGANISM (6) BPH (benign prostatic hyperplasia) Code(s): N40.0 - BENIGN PROSTATIC HYPERPLASIA WITHOUT LOWER URINRY TRACT SYMP Assessment/Plan IV ABX PER ID NEUROLOGICAL CHANGES ARE CHRONIC WILL ORDER PT EVAL PER FAMILY REQUEST DVT PROPHYLAXIS FEEDS RESTARTED
[2019-12-25] MEDS: oxyCODONE HCL 5 MG TABLET GT PRN (17:24)
[2019-12-25] MEDS: MIRTAZAPINE 15 MG TABLET (FP) GT SCH (21:08)
[2019-12-26] MEDS: ALBUTEROL SO4 0.083% IH SOL 2.5 MG/3 ML VIAL.NEB. NEB PRN (01:12)
[2019-12-26] MEDS ORDERED: DEXTROSE 5%-WATER - 50 ML IVPB ONE ×4 (03:38→20:07)
[2019-12-26] MEDS ORDERED: PIPERACILLIN/TAZOBACTAM 3.375 GM VIAL IVPB ONE ×4 (03:38→20:07)
[2019-12-26] MEDS: PIPERACILLIN/TAZOB 3.375 GM 3.375 GM in DEXTROSE 5%-WATER - 50 ML IVPB SCH ×4 (03:47→20:09)
[2019-12-26 06:51] LABS: HEMATOCRIT 38.9 % (35.4-49); HEMOGLOBIN 12.8 GM/dL (11.7-16.9); MCH 30.3 pg (25.7-33.7); MEAN CELL VOLUME 92.1 fl (80-96); MEAN PLT VOLUME 7.9 fl (7.5-11.1); PLATELET COUNT 307 K/MM3 (134-434); RBC 4.23 M/mm3 (4.00-5.60); RDW 14.1 % (11.9-15.9); WHITE BLOOD COUNT 4.7 K/mm3 (4.0-10.0)
[2019-12-26 07:03] LABS: ALBUMIN 2.7 g/dl (3.4-5.0); BILIRUBIN,TOTAL 0.6 mg/dL (0.2-1); BLOOD UREA NITROGEN 12.8 mg/dL (7-18); CALCIUM 8.8 mg/dL (8.5-10.1); CREATININE 0.7 mg/dL (0.55-1.3); POTASSIUM 3.5 mmol/L (3.5-5.1); TOT PROT 6.7 g/dl (6.4-8.2)
[2019-12-26] MEDS: ALBUTEROL SO4 2.5/IPRATROPIUM 0.5 INH SOL 3 ML VIAL.NEB. NEB SCH ×4 (07:26→20:00)
[2019-12-26] MEDS ORDERED: PT OWN MED DRAWER 7, Y5N ONE ×3 (08:41→16:59)
[2019-12-26] MEDS: AMINO ACIDS/PROTEIN HYDROLYS 30 ML LIQUID.PKT GT SCH ×2 (08:50→17:58)
[2019-12-26] MEDS: CARBIDOPA/LEVODOPA 25/250 TABLET (FP) PEG SCH ×4 (09:01→21:05)
[2019-12-26] MEDS: DOXAZOSIN MESYLATE 4 MG TABLET GT SCH (09:01)
[2019-12-26] MEDS: MULTIVIT-MINERALS ORAL LIQUID GT SCH (09:01)
[2019-12-26] MEDS: ENOXAPARIN NA (PORCINE) 40 MG/0.4 ML DISP.SYRIN SQ SCH (09:02)
--- NOTE | 2019-12-26 09:13 | PN ---
Progress Note, Physician - Current Medication List Current Medications: Active Medications Acetaminophen (Tylenol -) 650 mg PO Q4H PRN PRN Reason: PAIN 1-3 Last Admin: 12/25/19 21:13 Dose: 650 mg Documented by: Albuterol Sulfate (Ventolin 0.083% Nebulizer Soln -) 1 amp NEB Q4H PRN PRN Reason: SHORT OF BREATH/WHEEZING Last Admin: 12/26/19 01:12 Dose: 1 amp Documented by: Albuterol/Ipratropium (Duoneb -) 1 amp NEB RQID [facility] Last Admin: 12/26/19 07:26 Dose: 1 amp Documented by: Amino Acids (Prosource No Carb Liquid Pkt) 30 ml GT BID@0800,1730 [facility] Last Admin: 12/26/19 08:50 Dose: 30 ml Documented by: Carbidopa/Levodopa (Sinemet 25/250 -) 1 each PEG QID [facility] Last Admin: 12/26/19 09:01 Dose: 1 each Documented by: Doxazosin Mesylate (Cardura -) 4 mg GT DAILY [facility] Last Admin: 12/26/19 09:01 Dose: 4 mg Documented by: Enoxaparin Sodium (Lovenox -) 40 mg SQ DAILY [facility] Last Admin: 12/26/19 09:02 Dose: 40 mg Documented by: Sodium Chloride (Normal Saline -) 1,000 mls @ 50 mls/hr IV ASDIR [facility] Last Admin: 12/25/19 13:49 Dose: Not Given Documented by: Piperacillin Sod/Tazobactam (Sod 3.375 gm/ Dextrose) 50 mls @ 100 mls/hr IVPB Q6H-IV [facility]; Protocol Last Admin: 12/26/19 08:50 Dose: 100 mls/hr Documented by: Mirtazapine (Remeron -) 15 mg GT HS [facility] Last Admin: 12/25/19 21:08 Dose: 15 mg Documented by: Multivitamins/Minerals (Certavite-Antioxidant Liquid) 15 ml GT DAILY [facility] Last Admin: 12/26/19 09:01 Dose: 15 ml Documented by: Oxycodone HCl (Roxicodone -) 5 mg GT Q6H PRN PRN Reason: PAIN LEVEL 6-10 Last Admin: 12/25/19 17:24 Dose: 5 mg Documented by: - Objective Vital Signs: Vital Signs Temperature 97.7 F 12/26/19 05:00 Pulse Rate 91 H 12/26/19 05:00 Respiratory Rate 20 12/26/19 05:00 Blood Pressure 146/82 12/26/19 05:00 O2 Sat by Pulse Oximetry (%) 95 12/26/19 05:00 Cardiovascular: Yes: S1, S2 Respiratory: Yes: Regular, CTA Bilaterally Gastrointestinal: Yes: Normal Bowel Sounds, Soft, Other (peg) Labs: CBC, BMP 12/26/19 05:48 12/26/19 05:48 INR, PTT INR 1.19 (0.83-1.09) H 12/20/19 13:00 Problem List - Problems (1) Pneumonia Assessment/Plan: -CXR BL patchy infiltrates -ID consult -Pulmonary consult -IV abx -O2 tx to keep Spo2 >90% -Afebrile -Keep HOB >30 degrees at all times -Bronchodilators Code(s): J18.9 - PNEUMONIA, UNSPECIFIED ORGANISM Qualifiers: Pneumonia type: due to unspecified organism Laterality: bilateral Lung location: unspecified part of lung Qualified Code(s): J18.9 - Pneumonia, unspecified organism (2) Gastric dysmotility Assessment/Plan: xray hold feedings Code(s): K31.89 - OTHER DISEASES OF STOMACH AND DUODENUM (3) Parkinson disease Assessment/Plan: sinemet Code(s): G20 - PARKINSON'S DISEASE
--- NOTE | 2019-12-26 11:36 | PN ---
Progress Note (short form) - Note Progress Note: PULMONARY Pt nonverbal. VSS/AFEBRILE Gen: nonverbal Heart: RRR Lung: bilateral rhonchi Abd: soft, nontender Ext: no edema CHART REVIEWED LABS/MEDS/NOTES/IMAGES A/P Pneumonia likely Aspiration Parkinsons Supranuclear Palsy BPH - continue antibiotics - O2 to keep SpO2 >90% - inhaled bronchodilators - aspiration precautions - DVT prophylaxis Jacob BONE MD
[2019-12-26] MEDS: SODIUM CHLORIDE 1,000 ML IV SCH (13:42)
--- NOTE | 2019-12-26 14:16 | CON.CARD ---
Consult Consult Specialty:: Cardiology - History of Present Illness History of Present Illness: 64 yo nonverbal man with parkinsons's disease and 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 and peg, bedbound and nonverbal was admitted with fever and bilateral infiltrates and treated for PNA. A CXR shos possible pulmonary congestion. O2 sat >90% on O2. Unable to respond to questions. Clinical condition is unchanged. 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 - Past Surgical History Additional Surgical History: PEG - Alcohol/Substance Use Hx Alcohol Use: No - Smoking History Smoking history: Never smoked Have you smoked in the past 12 months: No - Social History Usual Living Arrangement: With Spouse ADL: Family Assistance History of Recent Travel: No Home Medications - Allergies Allergies/Adverse Reactions: Allergies Allergy/AdvReac Type Severity Reaction Status Date / Time No Known Allergies Allergy Verified 12/20/19 15:48 - Home Medications Home Medications: Ambulatory Orders Doxazosin Mesylate 4 mg GT DAILY 03/09/19 Mirtazapine 15 mg PO DAILY 03/09/19 Carbidopa/Levodopa 25/250 [Sinemet 25/250 -] 1 each PEG QID tablet 03/16/19 Mirabegron [Myrbetriq] 25 mg GT DAILY 12/20/19 Review of Systems Unable to obtain ROS, reason: dementia Vital Signs: Vital Signs Temperature 97.9 F 12/26/19 13:00 Pulse Rate 90 12/26/19 13:00 Respiratory Rate 20 12/26/19 13:00 Blood Pressure 139/84 12/26/19 13:00 O2 Sat by Pulse Oximetry (%) 97 12/26/19 13:00 Constitutional: Yes: Well Nourished, No Distress Eyes: Yes: Conjunctiva Clear HENT: Yes: Atraumatic, Normocephalic Neck: Yes: Supple, Trachea Midline Respiratory: Yes: Regular, CTA Bilaterally Gastrointestinal: Yes: Normal Bowel Sounds Cardiovascular: Yes: Regular Rate and Rhythm PMI: Non-Displaced Heart Sounds: Yes: S1, S2 Murmur: No: Systolic Murmur, Diastolic Murmur Edema: No - Other Data Labs, Other Data: CBC, BMP 12/26/19 05:48 12/26/19 05:48 INR, PTT INR 1.19 (0.83-1.09) H 12/20/19 13:[address] T changes. Imaging - Results Chest X-ray: Report Reviewed Problem List - Problems (1) SOB (shortness of breath) Code(s): R06.02 - SHORTNESS OF BREATH Assessment/Plan 64 yo nonverbal man with parkinsons's disease and 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 and peg, bedbound and nonverbal was admitted with fever and bilateral infiltrates and treated for PNA. A CXR shos possible pulmonary congestion. O2 sat >90% on O2. Unable to respond to questions. Clinical condition is unchanged. No clinical sings of volume overload. Pt without hypoxia or respiratory distress. Hold off on Diuresis Echocardiogram BNP level.
--- NOTE | 2019-12-26 14:33 | PN ---
Progress Note (short form) - Note Progress Note: nonverbal, opens eyes day #6 zosyn Vital Signs Period Temp Pulse Resp BP Sys/Villegas Pulse Ox Last 24 Hr 97.7 F-98.5 F 85-93 20-20 134-148/82-90 94-97 cor-rrr lungs scattered rhonchi abd soft,nt +GT ext no edema CBC, BMP 12/26/19 05:48 12/26/19 05:48 Microbiology 12/20/19 14:29 Blood - Peripheral Venous Blood Culture - Final NO GROWTH AFTER 5 DAYS INCUBATION 12/20/19 13:00 Blood - Peripheral Venous Blood Culture - Final NO GROWTH AFTER 5 DAYS INCUBATION 12/20/19 21:30 Sputum - Expectorated Gram Stain - Final 12/20/19 21:30 Sputum - Expectorated Sputum Culture - Final Pseudomonas Aeruginosa 12/20/19 15:00 Urine - Urine - Catheterized Urine Culture - Final NO GROWTH OBTAINED 12/21/19 03:00 Urine - Urine Clean Catch Legionella Antigen - Final 12/21/19 03:00 Urine - Urine Clean Catch Streptococcus pneumoniae Antigen (M - Final a/p aspiration pneumonia-continue zosyn, day #6 carbapenem resistant pseudomonas contact isolation for the pseudomonas history of suprnuclear palsy/parkinsons disease Problem List - Problems (1) Pneumonia Code(s): J18.9 - PNEUMONIA, UNSPECIFIED ORGANISM Qualifiers: Pneumonia type: due to unspecified organism Laterality: bilateral Lung location: unspecified part of lung Qualified Code(s): J18.9 - Pneumonia, unspecified organism (2) Parkinson disease Code(s): G20 - PARKINSON'S DISEASE (3) Supranuclear palsy Code(s): G23.1 - PROGRESSIVE SUPRANUCLEAR OPHTHALMOPLEGIA
[2019-12-26] MEDS: MIRTAZAPINE 15 MG TABLET (FP) GT SCH (21:05)
[2019-12-27] MEDS ORDERED: DEXTROSE 5%-WATER - 50 ML IVPB ONE ×4 (01:36→20:34)
[2019-12-27] MEDS ORDERED: PIPERACILLIN/TAZOBACTAM 3.375 GM VIAL IVPB ONE ×4 (01:36→20:33)
[2019-12-27] MEDS: PIPERACILLIN/TAZOB 3.375 GM 3.375 GM in DEXTROSE 5%-WATER - 50 ML IVPB SCH ×4 (02:18→20:35)
[2019-12-27] MEDS: SODIUM CHLORIDE 1,000 ML IV SCH ×2 (03:10→13:24)
[2019-12-27] MEDS: ALBUTEROL SO4 2.5/IPRATROPIUM 0.5 INH SOL 3 ML VIAL.NEB. NEB SCH ×4 (08:00→20:38)
[2019-12-27] MEDS: CARBIDOPA/LEVODOPA 25/250 TABLET (FP) PEG SCH ×4 (10:05→21:13)
[2019-12-27] MEDS: AMINO ACIDS/PROTEIN HYDROLYS 30 ML LIQUID.PKT GT SCH ×2 (10:05→17:42)
[2019-12-27] MEDS: MULTIVIT-MINERALS ORAL LIQUID GT SCH (10:06)
[2019-12-27] MEDS: DOXAZOSIN MESYLATE 4 MG TABLET GT SCH (10:06)
[2019-12-27] MEDS: ENOXAPARIN NA (PORCINE) 40 MG/0.4 ML DISP.SYRIN SQ SCH (10:06)
--- NOTE | 2019-12-27 11:10 | ECHO ---
Name: GIANNAKAYLIELISEOID Exam:Adult Echocardiogram Study Date: 12/27/2019 09:22 AM Age: 64 yrs Reason For Study: CHF MMode/2D Measurements & Calculations IVSd: 1.2 cm Ao root diam: 3.1 cm LVIDd: 3.7 cm LA dimension: 2.7 cm LVIDs: 2.6 cm LVPWd: 1.6 cm LVPWs: 2.1 cm EDV(Teich): 57.1 ml ESV(Teich): 23.9 ml LVOT diam: 2.1 cm TAPSE: 2.9 cm RV S Jake: 21.9 cm/sec Doppler Measurements & Calculations MV E max jake: 55.8 cm/sec Ao V2 max: 134.7 cm/sec MV A max jake: 102.7 cm/sec Ao max P.3 mmHg MV E/A: 0.54 OVIDIO(V,D): 2.6 cm2 MV dec time: 0.02 sec LV V1 max P.1 mmHg PA V2 max: 123.5 cm/sec LV V1 max: 100.6 cm/sec PA max P.1 mmHg Med Peak E' Jake: 7.3 cm/sec Med E/e': 7.6 Lat Peak E' Jake: 6.6 cm/sec Lat E/e': 8.5 Procedure The study was technically difficult with many images being suboptimal in quality. Left Ventricle There is moderate concentric left ventricular hypertrophy. The left ventricular ejection fraction is normal. Fused E/A wave precludes diastolic assessment. Right Ventricle The right ventricle is normal in size and function. Atria Normal left and right atrial size and function. Mitral Valve The mitral valve is normal in structure and function. Tricuspid Valve The tricuspid valve is normal in structure and function. There is no tricuspid stenosis. There is tra ce tricuspid regurgitation. There was insufficient TR detected to calculate RV systolic pressure. Aortic Valve The aortic valve is not well visualized. No hemodynamically significant valvular aortic stenosis. Pulmonic Valve The pulmonic valve is not well visualized. Great Vessels The aortic root is normal size. Pericardium/Pleura Small pericardial effusion (<1cm). There are no echocardiographic indications of cardiac tamponade. Interpretation Summary The study was technically difficult with many images being suboptimal in quality. There is moderate concentric left ventricular hypertrophy. The left ventricular ejection fraction is normal. The right ventricle is normal in size and function. Small pericardial effusion (<1cm) There are no echocardiographic indications of cardiac tamponade. Ronaldo Mcnamara 12/27/2019 11:10 AM
--- NOTE | 2019-12-27 12:39 | PN ---
Progress Note (short form) - Note Progress Note: Patient nonverbal. Breathing is non-labored. No acute events overnight. Intake & Output 12/24/19 12/25/19 12/26/19 12/27/19 23:59 23:59 23:59 23:59 Intake Total 1950 2940 1250 400 Output Total 400 Balance 1950 2940 850 400 Last Vital Signs Temp Pulse Resp BP Pulse Ox 98.7 F 87 20 127/81 97 12/27/19 10:00 12/27/19 10:00 12/27/19 10:00 12/27/19 10:00 12/27/19 10:00 Active Medications Acetaminophen (Tylenol -) 650 mg PO Q4H PRN PRN Reason: PAIN 1-3 Last Admin: 12/25/19 21:13 Dose: 650 mg Documented by: Albuterol Sulfate (Ventolin 0.083% Nebulizer Soln -) 1 amp NEB Q4H PRN PRN Reason: SHORT OF BREATH/WHEEZING Last Admin: 12/26/19 01:12 Dose: 1 amp Documented by: Albuterol/Ipratropium (Duoneb -) 1 amp NEB RQID [facility] Last Admin: 12/26/19 20:00 Dose: 1 amp Documented by: Amino Acids (Prosource No Carb Liquid Pkt) 30 ml GT BID@0800,1730 [facility] Last Admin: 12/27/19 10:05 Dose: 30 ml Documented by: Carbidopa/Levodopa (Sinemet 25/250 -) 1 each PEG QID [facility] Last Admin: 12/27/19 10:05 Dose: 1 each Documented by: Doxazosin Mesylate (Cardura -) 4 mg GT DAILY [facility] Last Admin: 12/27/19 10:06 Dose: 4 mg Documented by: Enoxaparin Sodium (Lovenox -) 40 mg SQ DAILY [facility] Last Admin: 12/27/19 10:06 Dose: 40 mg Documented by: Sodium Chloride (Normal Saline -) 1,000 mls @ 50 mls/hr IV ASDIR [facility] Last Admin: 12/27/19 03:10 Dose: 50 mls/hr Documented by: Piperacillin Sod/Tazobactam (Sod 3.375 gm/ Dextrose) 50 mls @ 100 mls/hr IVPB Q6H-IV [facility]; Protocol Last Admin: 12/27/19 10:05 Dose: 100 mls/hr Documented by: Mirtazapine (Remeron -) 15 mg GT HS [facility] Last Admin: 12/26/19 21:05 Dose: 15 mg Documented by: Multivitamins/Minerals (Certavite-Antioxidant Liquid) 15 ml GT DAILY [facility] Last Admin: 12/27/19 10:06 Dose: 15 ml Documented by: Oxycodone HCl (Roxicodone -) 5 mg GT Q6H PRN PRN Reason: PAIN LEVEL 6-10 Last Admin: 12/25/19 17:24 Dose: 5 mg Documented by: Gen: nonverbal Heart: RRR Lung: bilateral rhonchi Abd: soft, nontender Ext: no edema Laboratory Results - last 24 hr 12/27/19 08:41 B-Natriuretic Peptide 160.2 H A/P Pneumonia likely Aspiration carbapenem resistant pseudomonas Parkinsons Supranuclear Palsy BPH - continue antibiotics per ID - O2 to keep SpO2 >90% - inhaled bronchodilators - aspiration precautions - DVT prophylaxis Dr Scott
[2019-12-27] MEDS: oxyCODONE HCL 5 MG TABLET GT PRN (13:23)
--- NOTE | 2019-12-27 13:30 | PN ---
Progress Note, Physician Chief Complaint: Aspiration pneumonia History of Present Illness: NAD non verbal but alert Lungs sounds improved TF on hold - Current Medication List Current Medications: Active Medications Acetaminophen (Tylenol -) 650 mg PO Q4H PRN PRN Reason: PAIN 1-3 Last Admin: 12/25/19 21:13 Dose: 650 mg Documented by: Albuterol Sulfate (Ventolin 0.083% Nebulizer Soln -) 1 amp NEB Q4H PRN PRN Reason: SHORT OF BREATH/WHEEZING Last Admin: 12/26/19 01:12 Dose: 1 amp Documented by: Albuterol/Ipratropium (Duoneb -) 1 amp NEB RQID [facility] Last Admin: 12/26/19 20:00 Dose: 1 amp Documented by: Amino Acids (Prosource No Carb Liquid Pkt) 30 ml GT BID@0800,1730 [facility] Last Admin: 12/27/19 10:05 Dose: 30 ml Documented by: Carbidopa/Levodopa (Sinemet 25/250 -) 1 each PEG QID [facility] Last Admin: 12/27/19 13:23 Dose: 1 each Documented by: Doxazosin Mesylate (Cardura -) 4 mg GT DAILY [facility] Last Admin: 12/27/19 10:06 Dose: 4 mg Documented by: Enoxaparin Sodium (Lovenox -) 40 mg SQ DAILY [facility] Last Admin: 12/27/19 10:06 Dose: 40 mg Documented by: Sodium Chloride (Normal Saline -) 1,000 mls @ 50 mls/hr IV ASDIR [facility] Last Admin: 12/27/19 13:24 Dose: Not Given Documented by: Piperacillin Sod/Tazobactam (Sod 3.375 gm/ Dextrose) 50 mls @ 100 mls/hr IVPB Q6H-IV [facility]; Protocol Last Admin: 12/27/19 10:05 Dose: 100 mls/hr Documented by: Mirtazapine (Remeron -) 15 mg GT HS [facility] Last Admin: 12/26/19 21:05 Dose: 15 mg Documented by: Multivitamins/Minerals (Certavite-Antioxidant Liquid) 15 ml GT DAILY [facility] Last Admin: 12/27/19 10:06 Dose: 15 ml Documented by: Oxycodone HCl (Roxicodone -) 5 mg GT Q6H PRN PRN Reason: PAIN LEVEL 6-10 Last Admin: 12/27/19 13:23 Dose: 5 mg Documented by: - Objective Vital Signs: Vital Signs Temperature 98.7 F 12/27/19 10:00 Pulse Rate 87 12/27/19 10:00 Respiratory Rate 20 12/27/19 10:00 Blood Pressure 127/81 12/27/19 10:00 O2 Sat by Pulse Oximetry (%) 97 12/27/19 10:00 Constitutional: Yes: Well Nourished, No Distress, Calm Cardiovascular: Yes: Regular Rate and Rhythm Respiratory: Yes: Regular, On Nasal O2, Rales (diffuse) Gastrointestinal: Yes: Normal Bowel Sounds, Soft Genitourinary: Yes: Incontinence Musculoskeletal: Yes: WNL Extremities: Yes: Other (generalized atrophy, contracted) Edema: No Peripheral Pulses WNL: Yes Neurological: Yes: Pre-Existing Deficit Labs: CBC, BMP 12/26/19 05:48 12/26/19 05:48 INR, PTT INR 1.19 (0.83-1.09) H 12/20/19 13:00 Problem List - Problems (1) Pneumonia Assessment/Plan: -CXR BL patchy infiltrates -CTAP- BL infiltrates L>R -ID consult -Pulmonary consult -IV abx -O2 tx to keep Spo2 >90% -Afebrile -Keep HOB >30 degrees at all times -Bronchodilators -Keep pt NPO -Consult for Surgery for J tube insertion Problems reviewed: Yes Code(s): J18.9 - PNEUMONIA, UNSPECIFIED ORGANISM Qualifiers: Pneumonia type: due to unspecified organism Laterality: bilateral Lung location: unspecified part of lung Qualified Code(s): J18.9 - Pneumonia, unspecified organism (2) Supranuclear palsy Problems reviewed: Yes Code(s): G23.1 - PROGRESSIVE SUPRANUCLEAR OPHTHALMOPLEGIA (3) Parkinson disease Assessment/Plan: -Continue Sinemet Problems reviewed: Yes Code(s): G20 - PARKINSON'S DISEASE (4) Functional quadriplegia Problems reviewed: Yes Code(s): R53.2 - FUNCTIONAL QUADRIPLEGIA Assessment/Plan See problem list Spoke to nadya Huffman yesterday about plan and status update. ALso spoke to Aminta Kaplan at [phone], who is a surgeon- he will discuss plan with family. He wants to speak to Surgery- Dr Andrey Robles (forwarded message to Dr Robles.).
--- NOTE | 2019-12-27 14:16 | PN ---
Progress Note, Physician Chief Complaint: No dyspnea History of Present Illness: 64 yo nonverbal man with parkinsons's disease and 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 and peg, bedbound and nonverbal was admitted with fever and bilateral infiltrates and treated for PNA. A CXR shos possible pulmonary congestion. O2 sat >90% on O2. Unable to respond to questions. Clinical condition is unchanged. - Current Medication List Current Medications: Active Medications Acetaminophen (Tylenol -) 650 mg PO Q4H PRN PRN Reason: PAIN 1-3 Last Admin: 12/25/19 21:13 Dose: 650 mg Documented by: Albuterol Sulfate (Ventolin 0.083% Nebulizer Soln -) 1 amp NEB Q4H PRN PRN Reason: SHORT OF BREATH/WHEEZING Last Admin: 12/26/19 01:12 Dose: 1 amp Documented by: Albuterol/Ipratropium (Duoneb -) 1 amp NEB RQID [facility] Last Admin: 12/26/19 20:00 Dose: 1 amp Documented by: Amino Acids (Prosource No Carb Liquid Pkt) 30 ml GT BID@0800,1730 [facility] Last Admin: 12/27/19 10:05 Dose: 30 ml Documented by: Carbidopa/Levodopa (Sinemet 25/250 -) 1 each PEG QID [facility] Last Admin: 12/27/19 13:23 Dose: 1 each Documented by: Doxazosin Mesylate (Cardura -) 4 mg GT DAILY [facility] Last Admin: 12/27/19 10:06 Dose: 4 mg Documented by: Enoxaparin Sodium (Lovenox -) 40 mg SQ DAILY [facility] Last Admin: 12/27/19 10:06 Dose: 40 mg Documented by: Sodium Chloride (Normal Saline -) 1,000 mls @ 50 mls/hr IV ASDIR [facility] Last Admin: 12/27/19 13:24 Dose: Not Given Documented by: Piperacillin Sod/Tazobactam (Sod 3.375 gm/ Dextrose) 50 mls @ 100 mls/hr IVPB Q6H-IV [facility]; Protocol Last Admin: 12/27/19 14:01 Dose: 100 mls/hr Documented by: Mirtazapine (Remeron -) 15 mg GT HS [facility] Last Admin: 12/26/19 21:05 Dose: 15 mg Documented by: Multivitamins/Minerals (Certavite-Antioxidant Liquid) 15 ml GT DAILY [facility] Last Admin: 12/27/19 10:06 Dose: 15 ml Documented by: Oxycodone HCl (Roxicodone -) 5 mg GT Q6H PRN PRN Reason: PAIN LEVEL 6-10 Last Admin: 12/27/19 13:23 Dose: 5 mg Documented by: - Objective Vital Signs: Vital Signs Temperature 98.7 F 12/27/19 10:00 Pulse Rate 87 12/27/19 10:00 Respiratory Rate 20 12/27/19 10:00 Blood Pressure 127/81 12/27/19 10:00 O2 Sat by Pulse Oximetry (%) 97 12/27/19 10:00 Constitutional: Yes: Well Nourished, No Distress Eyes: Yes: Conjunctiva Clear HENT: Yes: Atraumatic, Normocephalic Neck: Yes: Supple, Trachea Midline Cardiovascular: Yes: Regular Rate and Rhythm, S1, S2. No: JVD Respiratory: Yes: Regular, CTA Bilaterally Edema: No Labs: CBC, BMP 12/26/19 05:48 12/26/19 05:48 INR, PTT INR 1.19 (0.83-1.09) H 12/20/19 13:00 Problem List - Problems (1) SOB (shortness of breath) Code(s): R06.02 - SHORTNESS OF BREATH Assessment/Plan 64 yo nonverbal man with parkinsons's disease and 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 and peg, bedbound and nonverbal was admitted with fever and bilateral infiltrates and treated for PNA. A CXR shos possible pulmonary congestion. O2 sat >90% on O2. Unable to respond to questions. Clinical condition is unchanged. Mildly elevated BNP. Normal LV function and filling on Echocardiogram Lasix 20mg qd PO
[2019-12-27] MEDS: ACETAMINOPHEN 325 MG TABLET (FP) PO PRN (15:16)
--- NOTE | 2019-12-27 15:44 | PN ---
Progress Note (short form) - Note Progress Note: nonverbal, opens eyes day #7 zosyn Vital Signs Period Temp Pulse Resp BP Sys/Villegas Pulse Ox Last 24 Hr 97.0 F-98.7 F 87-95 20-20 127-144/80-92 93-98 cor-rrr lungs decreased bs at bases abd soft,nt +GT ext no edema CBC, BMP 12/26/19 05:48 12/26/19 05:48 Microbiology 12/20/19 14:29 Blood - Peripheral Venous Blood Culture - Final NO GROWTH AFTER 5 DAYS INCUBATION 12/20/19 13:00 Blood - Peripheral Venous Blood Culture - Final NO GROWTH AFTER 5 DAYS INCUBATION 12/20/19 21:30 Sputum - Expectorated Gram Stain - Final 12/20/19 21:30 Sputum - Expectorated Sputum Culture - Final Pseudomonas Aeruginosa 12/20/19 15:00 Urine - Urine - Catheterized Urine Culture - Final NO GROWTH OBTAINED 12/21/19 03:00 Urine - Urine Clean Catch Legionella Antigen - Final 12/21/19 03:00 Urine - Urine Clean Catch Streptococcus pneumoniae Antigen (M - Final a/p aspiration pneumonia-continue zosyn, day #12/01 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
--- NOTE | 2019-12-27 17:08 | CON.GI ---
Consult Consult Specialty:: Gastroenterology Referred by:: Dr. Cartwright Reason for Consultation:: Ileus - History of Present Illness Chief Complaint: SOB and fever History of Present Illness: 64M with 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/Parkinson's Disease is admitted with fever, SOB and is found to have bilateral aspiration pneumonias. He has a PEG. His continuous feedings have been held in favor of a trial of bolus feedings which his sons tell me is the regimen done at home. They tell me that he requires Miralax prn syed at home and that daily Miralax caused diarrhea. The history is provided by his sons, Nathanael ) and DR. Marj Macedo ). He has previously been followed by my partner Dr. John Rasmussen. he placed the PEG in 2018. EGD on 08/15/10 chronic gastritis. Colonoscopy on 07/06/13 disclosed only small internal hemorrhoids. The nurse rpeorst that he had a soft BM last night. His CT scan and abdominal exam reveal no significant distension to suggest an ileus. - History Source History Provided By: Family Member, Medical Record Limitations to Obtaining History: Other (unable to verbalize) - Past Medical History CAPTION WRITER: Yes: Parkinson's (with 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) Cardio/Vascular: Yes: HTN Pulmonary: Yes: Pneumonia Gastrointestinal: Yes: Gastritis, Other (PEG tube inserted 2017, normal colonoscopy 07/06/13) Renal/: Yes: BPH - Past Surgical History Past Surgical History: Yes: Colonoscopy, Upper Endoscopy Additional Surgical History: PEG insertion - Alcohol/Substance Use Hx Alcohol Use: No History of Substance Use: reports: None - Smoking History Smoking history: Never smoked Have you smoked in the past 12 months: No - Social History Usual Living Arrangement: With Spouse ADL: Family Assistance Place of : Other ([place]) History of Recent Travel: No Home Medications - Allergies Allergies/Adverse Reactions: Allergies Allergy/AdvReac Type Severity Reaction Status Date / Time No Known Allergies Allergy Verified 12/20/19 15:48 - Home Medications Home Medications: Ambulatory Orders Doxazosin Mesylate 4 mg GT DAILY 03/09/19 Mirtazapine 15 mg PO DAILY 03/09/19 Carbidopa/Levodopa 25/250 [Sinemet 25/250 -] 1 each PEG QID tablet 03/16/19 Mirabegron [Myrbetriq] 25 mg GT DAILY 12/20/19 Family Medical History Family History: Unable to Obtain Review of Systems Unable to obtain ROS, reason: nonverbal Physical Exam-GI Vital Signs: Vital Signs Temperature 98.1 F 12/27/19 15:01 Pulse Rate 91 H 12/27/19 15:01 Respiratory Rate 20 12/27/19 15:01 Blood Pressure 140/83 12/27/19 15:01 O2 Sat by Pulse Oximetry (%) 97 12/27/19 10:00 CBC,CMP WBC 4.7 K/mm3 (4.0-10.0) 12/26/19 05:48 RBC 4.23 M/mm3 (4.00-5.60) 12/26/19 05:48 Hgb 12.8 GM/dL (11.7-16.9) 12/26/19 05:48 Hct 38.9 % (35.4-49) 12/26/19 05:48 MCV 92.1 fl (80-96) 12/26/19 05:48 MCH 30.3 pg (25.7-33.7) 12/26/19 05:48 MCHC 33.0 g/dl (32.0-35.9) 12/26/19 05:48 RDW 14.1 % (11.9-15.9) 12/26/19 05:48 Plt Count 307 K/MM3 (134-434) 12/26/19 05:48 MPV 7.9 fl (7.5-11.1) 12/26/19 05:48 Absolute Neuts (auto) 5.3 K/mm3 (1.5-8.0) 12/20/19 13:00 Neutrophils % 78.1 % (42.8-82.8) 12/20/19 13:00 Lymphocytes % 12.4 % (8-40) 12/20/19 13:00 Monocytes % 8.9 % (3.8-10.2) 12/20/19 13:00 Eosinophils % 0.3 % (0-4.5) D 12/20/19 13:00 Basophils % 0.3 % (0-2.0) D 12/20/19 13:00 Nucleated RBC % 0 % (0-0) 12/20/19 13:00 Sodium 142 mmol/L (136-145) 12/26/19 05:48 Potassium 3.5 mmol/L (3.5-5.1) 12/26/19 05:48 Chloride 108 mmol/L (98-107) H 12/26/19 05:48 Carbon Dioxide 28 mmol/L (21-32) 12/26/19 05:48 Anion Gap 7 MMOL/L (8-16) L 12/26/19 05:48 BUN 12.8 mg/dL (7-18) 12/26/19 05:48 Creatinine 0.7 mg/dL (0.55-1.3) 12/26/19 05:48 Est GFR (CKD-EPI)AfAm 113.98 12/26/19 05:48 Est GFR (CKD-EPI)NonAf 98.34 12/26/19 05:48 Random Glucose 83 mg/dL (74-106) 12/26/19 05:48 Lactic Acid 1.4 mmol/L (0.4-2.0) 12/20/19 13:00 Calcium 8.8 mg/dL (8.5-10.1) 12/26/19 05:48 Phosphorus 3.1 mg/dL (2.5-4.9) 12/21/19 06:35 Magnesium 2.1 mg/dL (1.8-2.4) 12/21/19 06:35 Total Bilirubin 0.6 mg/dL (0.2-1) 12/26/19 05:48 AST 22 U/L (15-37) 12/26/19 05:48 ALT 13 U/L (13-61) 12/26/19 05:48 Alkaline Phosphatase 66 U/L (45-117) 12/26/19 05:48 Troponin I < 0.02 ng/ml (0.00-0.05) 12/20/19 13:00 B-Natriuretic Peptide 160.2 pg/ml (5-125) H 12/27/19 08:41 Total Protein 6.7 g/dl (6.4-8.2) 12/26/19 05:48 Albumin 2.7 g/dl (3.4-5.0) L 12/26/19 05:48 Current Medications Generic Name Dose Route Start Last Admin Trade Name Freq PRN Reason Stop Dose Admin Acetaminophen 650 mg 12/21/19 10:55 12/27/19 15:16 Tylenol - PO 650 mg Q4H PRN Administration PAIN 1-3 Albuterol Sulfate 1 amp 12/21/19 12:09 12/26/19 01:12 Ventolin 0.083% Nebulizer Soln - NEB 1 amp Q4H PRN Administration SHORT OF BREATH/WHEEZING Albuterol/Ipratropium 1 amp 12/21/19 16:00 12/27/19 13:00 Duoneb - NEB 1 amp RQID [facility] Administration Amino Acids 30 ml 12/21/19 17:30 12/27/19 10:05 Prosource No Carb Liquid Pkt GT 30 ml BID@0800,1730 [facility] Administration Carbidopa/Levodopa 1 each 12/20/19 22:00 12/27/19 13:23 Sinemet 25/250 - PEG 1 each QID [facility] Administration Doxazosin Mesylate 4 mg 12/21/19 10:00 12/27/19 10:06 Cardura - GT 4 mg DAILY [facility] Administration Enoxaparin Sodium 40 mg 12/21/19 10:00 12/27/19 10:06 Lovenox - SQ 40 mg DAILY [facility] Administration Sodium Chloride 1,000 mls @ 50 mls/hr 12/21/19 10:57 12/27/19 13:24 Normal Saline - IV Not Given ASDIR [facility] Piperacillin Sod/Tazobactam 50 mls @ 100 mls/hr 12/23/19 15:00 12/27/19 14:01 Sod 3.375 gm/ Dextrose IVPB 100 mls/hr Q6H-IV [facility] Administration Protocol Mirtazapine 15 mg 12/20/19 22:00 12/26/19 21:05 Remeron - GT 15 mg HS [facility] Administration Multivitamins/Minerals 15 ml 12/22/19 10:00 12/27/19 10:06 Certavite-Antioxidant Liquid GT 15 ml DAILY [facility] Administration Oxycodone HCl 5 mg 12/25/19 10:21 12/27/19 13:23 Roxicodone - GT 5 mg Q6H PRN Administration PAIN LEVEL 6-10 Constitutional: Yes: No Distress Eyes: Yes: Conjunctiva Clear HENT: Yes: Atraumatic Neck: Yes: Trachea Midline Cardiovascular: Yes: Regular Rate and Rhythm Respiratory: Yes: Rhonchi (scattered bilaterally) Gastrointestinal Inspection: Yes: Other (LUQ functional PEG) ...Auscultate: Yes: Hypoactive Bowel Sounds ...Palpate: Yes: Soft, Other (nontender) ...Rectal Exam: Yes: Guaiac Negative (no masses, 2+ prostate, brown guaiac negative stool) Edema: No Neurological: Yes: Alert Labs: CBC, BMP 12/26/19 05:48 12/26/19 05:48 INR, PTT INR 1.19 (0.83-1.09) H 12/20/19 13:00 Imaging - Results Cat Scan: Report Reviewed ( Final Report CT ABDOMEN & PELVIS CT W/O CONTR Show Printer-Friendly Version Patient Name: Brett Macedo : 1955 ID: [id number] Study Date: 27-Dec-2019 01:58 Luzelie Graham Name: BRETT MACEDO DEPARTMENT OF RADIOLOGY Phys: Jerome Cartwright MD : 1955 Age: 64 Sex: M [facility] Acct: [id number] [facility] Exam Date: 12/27/19 Status: [place] [address] Unit Number: [id number] EXAM#: TYPE/EXAM: RESULT: [id number] CT/ABDOMEN PELVIS CT W/O CONTR HISTORY PROVIDED: The uterus TECHNIQUE: Sequential axial images were obtained from the domes of the diaphragm through the symphysis pubis following the administration of oral contrast material. The study is limited due to excessive motion artifact. Evaluation of the lung bases demonstrates patchy areas of consolidation within the right middle and lower lobes, as well as the lingula segment the left upper lobe. More dense consolidation/atelectasi s is noted at the left lung base with an associated pleural effusion. The heart is not enlarged. There is a small pericardial effusion present. There is a PEG tube well situated within the body of the stomach. The liver, spleen, pancreas, adrenal glands and kidneys demonstrate no gross abnormalities. The gallbladder is clear. There is no evidence of intra-abdominal or retroperitoneal lymphadenopathy or fluid collections. There is no evidence of pneumoperitoneum, bowel obstruction or intra-abdominal abscess. There is no CT evidence of acute appendicitis or diverticulitis. Examination of the pelvis demonstrates no evidence of pelvic masses, fluid collections or lymphadenopathy. The prostate gland is mildly enlarged. There is hyperdense material layering within the urinary bladder. This may represent urinary sediment although layering calculi cannot be excluded. There is no evidence of acute bony pathology. IMPRESSION: 1. Patchy bilateral infiltrates, most marked within the left lower lobe with an associated left pleural effusion. 2. Small pericardial effusion. 3. Limited study of the abdomen and pelvis with no gross evidence of acute pathology. Please see above discussion. Reported By: Grayson Jiménez MD 12/27/19806 Technologist: Karen Garcia Transcribed Date/Time: 12/27/19806 Welder Setter Resistance Machine: Grayson Jiménez Printed Date/Time: By: Signed by: Grayson Jiménez Signed on: 27-Dec-2019 08:08) Problem List - Problems (1) Pneumonia Code(s): J18.9 - PNEUMONIA, UNSPECIFIED ORGANISM Qualifiers: Pneumonia type: due to unspecified organism Laterality: bilateral Lung location: unspecified part of lung Qualified Code(s): J18.9 - Pneumonia, unspecified organism (2) Gastrostomy status Code(s): Z93.1 - GASTROSTOMY STATUS (3) Hypertension Code(s): I10 - ESSENTIAL (PRIMARY) HYPERTENSION (4) Parkinson disease Code(s): G20 - PARKINSON'S DISEASE (5) BPH (benign prostatic hyperplasia) Code(s): N40.0 - BENIGN PROSTATIC HYPERPLASIA WITHOUT LOWER URINRY TRACT SYMP (6) Supranuclear palsy Code(s): G23.1 - PROGRESSIVE SUPRANUCLEAR OPHTHALMOPLEGIA Assessment/Plan Impression: - I agree that Brett has aspiration pneumonia which is frequently associated with G tube feedings, whatever the method and discussed this with both sons. We discussed the option of a jejunostomy, perhaps with the G tube being left in place to allow for medications that cannot be given given the smaller caliber G tubes. They both has expressed that they do not want a J tube at this time and wish to proceed with bolus feedings and keeping the patient's head elevated as best as is possible. We mutually agree that a J tube may need to be reconsidered if pneumonia recurs. I find no ileus at present. Plan: -- Trial of bolus feedings with HOB elevated -- Miralax prn
[2019-12-27] MEDS ORDERED: PT OWN MED DRAWER 7, Y5N ONE (20:33)
[2019-12-27] MEDS: MIRTAZAPINE 15 MG TABLET (FP) GT SCH (21:13)
[2019-12-28] MEDS ORDERED: PIPERACILLIN/TAZOBACTAM 3.375 GM VIAL IVPB ONE ×4 (01:22→21:59)
[2019-12-28] MEDS ORDERED: DEXTROSE 5%-WATER - 50 ML IVPB ONE ×4 (01:22→21:59)
[2019-12-28] MEDS: PIPERACILLIN/TAZOB 3.375 GM 3.375 GM in DEXTROSE 5%-WATER - 50 ML IVPB SCH ×4 (01:59→22:02)
[2019-12-28] MEDS: SODIUM CHLORIDE 1,000 ML IV SCH (04:05)
[2019-12-28] MEDS: ALBUTEROL SO4 2.5/IPRATROPIUM 0.5 INH SOL 3 ML VIAL.NEB. NEB SCH ×4 (08:31→20:30)
--- NOTE | 2019-12-28 09:05 | PN.GI ---
GI Progress Note Subjective: GI NOte: Tolerating bolus feedings. Had BM overnight. NO vomiting - Objective Vital Signs: Vital Signs Temperature 97.5 F L 12/28/19 06:00 Pulse Rate 82 12/28/19 06:00 Respiratory Rate 20 12/28/19 06:00 Blood Pressure 130/69 12/28/19 06:00 O2 Sat by Pulse Oximetry (%) 96 12/28/19 06:00 Constitutional: Calm ...Auscultate: Yes: Normoactive Bowel Sounds ...Palpate: Yes: Soft, Other (nontender) Labs: CBC, BMP 12/26/19 05:48 12/26/19 05:48 INR, PTT INR 1.19 (0.83-1.09) H 12/20/19 13:00 Assessment/Plan Impression: - Aspiration pneumonia is frequently associated with G tube feedings, whatever the method. The option of a jejunostomy tube, perhaps with the G tube being left in place to allow for medications that cannot be given given the smaller caliber G tubes was discussed with both sons. They both has expressed that they do not want a J tube at this time. We mutually agreed that a J tube may need to be reconsidered if pneumonia recurs. Plan: -- Trial of bolus feedings with HOB elevated -- Miralax prn Problem List - Problems (1) Pneumonia Code(s): J18.9 - PNEUMONIA, UNSPECIFIED ORGANISM Qualifiers: Pneumonia type: due to unspecified organism Laterality: bilateral Lung location: unspecified part of lung Qualified Code(s): J18.9 - Pneumonia, unspecified organism (2) Gastrostomy status Code(s): Z93.1 - GASTROSTOMY STATUS (3) Hypertension Code(s): I10 - ESSENTIAL (PRIMARY) HYPERTENSION (4) Parkinson disease Code(s): G20 - PARKINSON'S DISEASE (5) BPH (benign prostatic hyperplasia) Code(s): N40.0 - BENIGN PROSTATIC HYPERPLASIA WITHOUT LOWER URINRY TRACT SYMP (6) Supranuclear palsy Code(s): G23.1 - PROGRESSIVE SUPRANUCLEAR OPHTHALMOPLEGIA
[2019-12-28] MEDS: ACETAMINOPHEN 325 MG TABLET (FP) PO PRN (09:26)
[2019-12-28] MEDS: DOXAZOSIN MESYLATE 4 MG TABLET GT SCH (09:26)
[2019-12-28] MEDS: AMINO ACIDS/PROTEIN HYDROLYS 30 ML LIQUID.PKT GT SCH ×2 (09:26→17:00)
[2019-12-28] MEDS: CARBIDOPA/LEVODOPA 25/250 TABLET (FP) PEG SCH ×4 (09:26→22:03)
[2019-12-28] MEDS: MULTIVIT-MINERALS ORAL LIQUID GT SCH (09:26)
[2019-12-28] MEDS: ENOXAPARIN NA (PORCINE) 40 MG/0.4 ML DISP.SYRIN SQ SCH (09:27)
--- NOTE | 2019-12-28 10:19 | PN ---
Progress Note, Physician Chief Complaint: No dyspnea History of Present Illness: 64 yo nonverbal man with parkinsons's disease and 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 and peg, bedbound and nonverbal was admitted with fever and bilateral infiltrates and treated for PNA. A CXR shos possible pulmonary congestion. O2 sat >90% on O2. Unable to respond to questions. Clinical condition is unchanged. - Current Medication List Current Medications: Active Medications Acetaminophen (Tylenol -) 650 mg PO Q4H PRN PRN Reason: PAIN 1-3 Last Admin: 12/28/19 09:26 Dose: 650 mg Documented by: Albuterol Sulfate (Ventolin 0.083% Nebulizer Soln -) 1 amp NEB Q4H PRN PRN Reason: SHORT OF BREATH/WHEEZING Last Admin: 12/26/19 01:12 Dose: 1 amp Documented by: Albuterol/Ipratropium (Duoneb -) 1 amp NEB RQID [facility] Last Admin: 12/27/19 20:38 Dose: 1 amp Documented by: Amino Acids (Prosource No Carb Liquid Pkt) 30 ml GT BID@0800,1730 [facility] Last Admin: 12/28/19 09:26 Dose: 30 ml Documented by: Carbidopa/Levodopa (Sinemet 25/250 -) 1 each PEG QID [facility] Last Admin: 12/28/19 09:26 Dose: 1 each Documented by: Doxazosin Mesylate (Cardura -) 4 mg GT DAILY [facility] Last Admin: 12/28/19 09:26 Dose: 4 mg Documented by: Enoxaparin Sodium (Lovenox -) 40 mg SQ DAILY [facility] Last Admin: 12/28/19 09:27 Dose: 40 mg Documented by: Sodium Chloride (Normal Saline -) 1,000 mls @ 50 mls/hr IV ASDIR [facility] Last Admin: 12/28/19 04:05 Dose: 50 mls/hr Documented by: Piperacillin Sod/Tazobactam (Sod 3.375 gm/ Dextrose) 50 mls @ 100 mls/hr IVPB Q6H-IV [facility]; Protocol Last Admin: 12/28/19 09:27 Dose: 100 mls/hr Documented by: Mirtazapine (Remeron -) 15 mg GT HS [facility] Last Admin: 12/27/19 21:13 Dose: 15 mg Documented by: Multivitamins/Minerals (Certavite-Antioxidant Liquid) 15 ml GT DAILY [facility] Last Admin: 12/28/19 09:26 Dose: 15 ml Documented by: Oxycodone HCl (Roxicodone -) 5 mg GT Q6H PRN PRN Reason: PAIN LEVEL 6-10 Last Admin: 12/27/19 13:23 Dose: 5 mg Documented by: - Objective Vital Signs: Vital Signs Temperature 97.5 F L 12/28/19 06:00 Pulse Rate 82 12/28/19 06:00 Respiratory Rate 20 12/28/19 06:00 Blood Pressure 130/69 12/28/19 06:00 O2 Sat by Pulse Oximetry (%) 96 12/28/19 06:00 Constitutional: Yes: No Distress Eyes: Yes: Conjunctiva Clear HENT: Yes: Atraumatic, Normocephalic Neck: Yes: Supple, Trachea Midline Cardiovascular: Yes: Regular Rate and Rhythm, S1, S2. No: JVD, Murmur Respiratory: Yes: Regular, CTA Bilaterally (poor effort) Gastrointestinal: Yes: Normal Bowel Sounds Edema: No Labs: CBC, BMP 12/26/19 05:48 12/26/19 05:48 INR, PTT INR 1.19 (0.83-1.09) H 12/20/19 13:00 Problem List - Problems (1) SOB (shortness of breath) Code(s): R06.02 - SHORTNESS OF BREATH Assessment/Plan 64 yo nonverbal man with parkinsons's disease and 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 and peg, bedbound and nonverbal was admitted with fever and bilateral infiltrates and treated for PNA. A CXR shos possible pulmonary congestion. O2 sat >90% on O2. Unable to respond to questions. Clinical condition is unchanged. Mildly elevated BNP possibly from atelectasis. Normal LV function and filling on Echocardiogram resume Tube feeds Abx if indicated.
--- NOTE | 2019-12-28 10:39 | PN ---
Progress Note, Physician Chief Complaint: Aspiration pneumonia History of Present Illness: NAD, tolerating bolus feeds via PEG and remaining Upright after feeds non verbal but alert Lungs sounds improved - Current Medication List Current Medications: Active Medications Acetaminophen (Tylenol -) 650 mg PO Q4H PRN PRN Reason: PAIN 1-3 Last Admin: 12/28/19 09:26 Dose: 650 mg Documented by: Albuterol Sulfate (Ventolin 0.083% Nebulizer Soln -) 1 amp NEB Q4H PRN PRN Reason: SHORT OF BREATH/WHEEZING Last Admin: 12/26/19 01:12 Dose: 1 amp Documented by: Albuterol/Ipratropium (Duoneb -) 1 amp NEB RQID [facility] Last Admin: 12/27/19 20:38 Dose: 1 amp Documented by: Amino Acids (Prosource No Carb Liquid Pkt) 30 ml GT BID@0800,1730 [facility] Last Admin: 12/28/19 09:26 Dose: 30 ml Documented by: Carbidopa/Levodopa (Sinemet 25/250 -) 1 each PEG QID [facility] Last Admin: 12/28/19 09:26 Dose: 1 each Documented by: Doxazosin Mesylate (Cardura -) 4 mg GT DAILY [facility] Last Admin: 12/28/19 09:26 Dose: 4 mg Documented by: Enoxaparin Sodium (Lovenox -) 40 mg SQ DAILY [facility] Last Admin: 12/28/19 09:27 Dose: 40 mg Documented by: Sodium Chloride (Normal Saline -) 1,000 mls @ 50 mls/hr IV ASDIR [facility] Last Admin: 12/28/19 04:05 Dose: 50 mls/hr Documented by: Piperacillin Sod/Tazobactam (Sod 3.375 gm/ Dextrose) 50 mls @ 100 mls/hr IVPB Q6H-IV [facility]; Protocol Last Admin: 12/28/19 09:27 Dose: 100 mls/hr Documented by: Mirtazapine (Remeron -) 15 mg GT HS [facility] Last Admin: 12/27/19 21:13 Dose: 15 mg Documented by: Multivitamins/Minerals (Certavite-Antioxidant Liquid) 15 ml GT DAILY [facility] Last Admin: 12/28/19 09:26 Dose: 15 ml Documented by: - Objective Vital Signs: Vital Signs Temperature 97.5 F L 12/28/19 06:00 Pulse Rate 82 12/28/19 06:00 Respiratory Rate 20 12/28/19 06:00 Blood Pressure 130/69 12/28/19 06:00 O2 Sat by Pulse Oximetry (%) 96 12/28/19 06:00 Constitutional: Yes: Well Nourished, No Distress, Calm Cardiovascular: Yes: Regular Rate and Rhythm Respiratory: Yes: Regular, Rales (BLL) Gastrointestinal: Yes: Normal Bowel Sounds, Soft Genitourinary: Yes: Incontinence Musculoskeletal: Yes: Muscle Weakness Extremities: Yes: Other (Generalized atrophy, contracted) Edema: No Peripheral Pulses WNL: Yes Neurological: Yes: Alert, Pre-Existing Deficit Psychiatric: Yes: Alert Labs: CBC, BMP 12/26/19 05:48 12/26/19 05:48 INR, PTT INR 1.19 (0.83-1.09) H 12/20/19 13:00 Problem List - Problems (1) Pneumonia Assessment/Plan: -CXR BL patchy infiltrates- repeat CXR in AM -CTAP- BL infiltrates L>R -ID consult -Pulmonary consult -IV abx -O2 tx to keep Spo2 >90% -Afebrile -Keep HOB >30 degrees at all times -Bronchodilators -Continue Bolus feeds and keep pt upright at 45 degrees for at least 45 mins Problems reviewed: Yes Code(s): J18.9 - PNEUMONIA, UNSPECIFIED ORGANISM Qualifiers: Pneumonia type: due to unspecified organism Laterality: bilateral Lung location: unspecified part of lung Qualified Code(s): J18.9 - Pneumonia, unspecified organism (2) Supranuclear palsy Problems reviewed: Yes Code(s): G23.1 - PROGRESSIVE SUPRANUCLEAR OPHTHALMOPLEGIA (3) Parkinson disease Assessment/Plan: -Continue Sinemet Problems reviewed: Yes Code(s): G20 - PARKINSON'S DISEASE (4) Functional quadriplegia Problems reviewed: Yes Code(s): R53.2 - FUNCTIONAL QUADRIPLEGIA Assessment/Plan See problem list Spoke to Aminta Kaplan at [phone], who is a surgeon to update pt status.
--- NOTE | 2019-12-28 10:53 | PN ---
Progress Note (short form) - Note Progress Note: nonverbal, opens eyes back on tube feeds day #8 zosyn Vital Signs Period Temp Pulse Resp BP Sys/Villegas Pulse Ox Last 24 Hr 97.5 F-98.2 F 82-99 20-20 130-146/69-89 91-96 cor-rrr lungs scattered rhonchi abd soft, nt, +GT ext no edema CBC, BMP 12/26/19 05:48 12/26/19 05:48 Microbiology 12/20/19 14:29 Blood - Peripheral Venous Blood Culture - Final NO GROWTH AFTER 5 DAYS INCUBATION 12/20/19 13:00 Blood - Peripheral Venous Blood Culture - Final NO GROWTH AFTER 5 DAYS INCUBATION 12/20/19 21:30 Sputum - Expectorated Gram Stain - Final 12/20/19 21:30 Sputum - Expectorated Sputum Culture - Final Pseudomonas Aeruginosa 12/20/19 15:00 Urine - Urine - Catheterized Urine Culture - Final NO GROWTH OBTAINED 12/21/19 03:00 Urine - Urine Clean Catch Legionella Antigen - Final 12/21/19 03:00 Urine - Urine Clean Catch Streptococcus pneumoniae Antigen (M - Final a/p aspiration pneumonia-continue zosyn, day #01/01 carbapenem resistant pseudomonas contact isolation for the pseudomonas clinically improving history of 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/parkinsons disease Problem List - Problems (1) Pneumonia Code(s): J18.9 - PNEUMONIA, UNSPECIFIED ORGANISM Qualifiers: Pneumonia type: due to unspecified organism Laterality: bilateral Lung location: unspecified part of lung Qualified Code(s): J18.9 - Pneumonia, unspecified organism (2) Parkinson disease Code(s): G20 - PARKINSON'S DISEASE (3) Supranuclear palsy Code(s): G23.1 - PROGRESSIVE SUPRANUCLEAR OPHTHALMOPLEGIA
--- NOTE | 2019-12-28 12:10 | PN ---
Progress Note (short form) - Note Progress Note: Patient nonverbal. Breathing is non-labored on 5 L NC O2. No acute events overnight. Intake & Output 12/25/19 12/26/19 12/27/19 12/28/19 23:59 23:59 23:59 23:59 Intake Total 2940 1250 1100 400 Output Total 400 Balance 2940 850 1100 400 Last Vital Signs Temp Pulse Resp BP Pulse Ox 97.9 F 83 20 131/81 95 12/28/19 10:00 12/28/19 10:00 12/28/19 10:00 12/28/19 10:00 12/28/19 10:00 Active Medications Acetaminophen (Tylenol -) 650 mg PO Q4H PRN PRN Reason: PAIN 1-3 Last Admin: 12/28/19 09:26 Dose: 650 mg Documented by: Albuterol Sulfate (Ventolin 0.083% Nebulizer Soln -) 1 amp NEB Q4H PRN PRN Reason: SHORT OF BREATH/WHEEZING Last Admin: 12/26/19 01:12 Dose: 1 amp Documented by: Albuterol/Ipratropium (Duoneb -) 1 amp NEB RQID [facility] Last Admin: 12/27/19 20:38 Dose: 1 amp Documented by: Amino Acids (Prosource No Carb Liquid Pkt) 30 ml GT BID@0800,1730 [facility] Last Admin: 12/28/19 09:26 Dose: 30 ml Documented by: Carbidopa/Levodopa (Sinemet 25/250 -) 1 each PEG QID [facility] Last Admin: 12/28/19 09:26 Dose: 1 each Documented by: Doxazosin Mesylate (Cardura -) 4 mg GT DAILY [facility] Last Admin: 12/28/19 09:26 Dose: 4 mg Documented by: Enoxaparin Sodium (Lovenox -) 40 mg SQ DAILY [facility] Last Admin: 12/28/19 09:27 Dose: 40 mg Documented by: Sodium Chloride (Normal Saline -) 1,000 mls @ 50 mls/hr IV ASDIR [facility] Last Admin: 12/28/19 04:05 Dose: 50 mls/hr Documented by: Piperacillin Sod/Tazobactam (Sod 3.375 gm/ Dextrose) 50 mls @ 100 mls/hr IVPB Q6H-IV [facility]; Protocol Last Admin: 12/28/19 09:27 Dose: 100 mls/hr Documented by: Mirtazapine (Remeron -) 15 mg GT HS [facility] Last Admin: 12/27/19 21:13 Dose: 15 mg Documented by: Multivitamins/Minerals (Certavite-Antioxidant Liquid) 15 ml GT DAILY [facility] Last Admin: 12/28/19 09:26 Dose: 15 ml Documented by: Gen: nonverbal Heart: RRR Lung: bilateral rhonchi Abd: soft, nontender Ext: no edema A/P Pneumonia likely Aspiration carbapenem resistant pseudomonas Parkinsons Supranuclear Palsy BPH - continue antibiotics per ID - O2 to keep SpO2 >90% - inhaled bronchodilators - aspiration precautions - DVT prophylaxis Dr Scott
[2019-12-28] MEDS: BACLOFEN 10 MG TABLET (FP) PO PRN (13:57)
[2019-12-28] MEDS: MIRTAZAPINE 15 MG TABLET (FP) GT SCH (22:03)
[2019-12-29] MEDS: BACLOFEN 10 MG TABLET (FP) PO PRN ×2 (02:44→22:10)
[2019-12-29] MEDS: ACETAMINOPHEN 325 MG TABLET (FP) PO PRN ×2 (02:44→22:09)
[2019-12-29] MEDS ORDERED: PIPERACILLIN/TAZOBACTAM 3.375 GM VIAL IVPB ONE ×4 (03:17→20:11)
[2019-12-29] MEDS ORDERED: DEXTROSE 5%-WATER - 50 ML IVPB ONE ×4 (03:17→20:11)
[2019-12-29] MEDS: PIPERACILLIN/TAZOB 3.375 GM 3.375 GM in DEXTROSE 5%-WATER - 50 ML IVPB SCH ×4 (03:23→20:23)
[2019-12-29 07:44] LABS: BASO % 0.4 % (0-2.0); HEMOGLOBIN 12.7 GM/dL (11.7-16.9); LYMPH % 12.5 % (8-40); MCHC 32.6 g/dl (32.0-35.9); MEAN CELL VOLUME 92.2 fl (80-96); MONO % 5.7 % (3.8-10.2); NEUT % 79.4 % (42.8-82.8); PLATELET COUNT 345 K/MM3 (134-434); RBC 4.23 M/mm3 (4.00-5.60); RDW 13.7 % (11.9-15.9); WHITE BLOOD COUNT 7.6 K/mm3 (4.0-10.0)
[2019-12-29 08:05] LABS: ALBUMIN 2.8 g/dl (3.4-5.0); BILIRUBIN,TOTAL 0.7 mg/dL (0.2-1); CALCIUM 8.4 mg/dL (8.5-10.1); CREATININE 0.7 mg/dL (0.55-1.3); POTASSIUM 3.4 mmol/L (3.5-5.1); TOT PROT 6.6 g/dl (6.4-8.2)
[2019-12-29] MEDS: ALBUTEROL SO4 2.5/IPRATROPIUM 0.5 INH SOL 3 ML VIAL.NEB. NEB SCH ×4 (08:16→20:11)
[2019-12-29] MEDS ORDERED: PT OWN MED DRAWER 7, Y5N ONE ×3 (08:20→21:26)
[2019-12-29] MEDS: AMINO ACIDS/PROTEIN HYDROLYS 30 ML LIQUID.PKT GT SCH ×2 (08:46→17:39)
--- NOTE | 2019-12-29 09:36 | PN ---
Progress Note, Physician Chief Complaint: Aspiration pneumonia History of Present Illness: NAD, tolerating bolus feeds via PEG and remaining Upright after feeds non verbal but alert Lungs sounds improved - Current Medication List Current Medications: Active Medications Acetaminophen (Tylenol -) 650 mg PO Q4H PRN PRN Reason: PAIN 1-3 Last Admin: 12/29/19 02:44 Dose: 650 mg Documented by: Albuterol Sulfate (Ventolin 0.083% Nebulizer Soln -) 1 amp NEB Q4H PRN PRN Reason: SHORT OF BREATH/WHEEZING Last Admin: 12/26/19 01:12 Dose: 1 amp Documented by: Albuterol/Ipratropium (Duoneb -) 1 amp NEB RQID [facility] Last Admin: 12/29/19 08:16 Dose: 1 amp Documented by: Amino Acids (Prosource No Carb Liquid Pkt) 30 ml GT BID@0800,1730 [facility] Last Admin: 12/29/19 08:46 Dose: 30 ml Documented by: Baclofen (Lioresal -) 10 mg PO TID PRN PRN Reason: BACK PAIN Last Admin: 12/29/19 02:44 Dose: 10 mg Documented by: Carbidopa/Levodopa (Sinemet 25/250 -) 1 each PEG QID [facility] Last Admin: 12/28/19 22:03 Dose: 1 each Documented by: Doxazosin Mesylate (Cardura -) 4 mg GT DAILY [facility] Last Admin: 12/28/19 09:26 Dose: 4 mg Documented by: Enoxaparin Sodium (Lovenox -) 40 mg SQ DAILY [facility] Last Admin: 12/28/19 09:27 Dose: 40 mg Documented by: Piperacillin Sod/Tazobactam (Sod 3.375 gm/ Dextrose) 50 mls @ 100 mls/hr IVPB Q6H-IV [facility]; Protocol Last Admin: 12/29/19 08:46 Dose: 100 mls/hr Documented by: Mirtazapine (Remeron -) 15 mg GT HS [facility] Last Admin: 12/28/19 22:03 Dose: 15 mg Documented by: Multivitamins/Minerals (Certavite-Antioxidant Liquid) 15 ml GT DAILY [facility] Last Admin: 12/28/19 09:26 Dose: 15 ml Documented by: - Objective Vital Signs: Vital Signs Temperature 97.9 F 08/06/20 05:41 Pulse Rate 89 12/29/19 05:41 Respiratory Rate 20 12/29/19 05:41 Blood Pressure 146/94 12/29/19 05:41 O2 Sat by Pulse Oximetry (%) 95 12/29/19 05:41 Constitutional: Yes: Well Nourished, No Distress, Calm Cardiovascular: Yes: Regular Rate and Rhythm Respiratory: Yes: Regular, Rales (BLL) Gastrointestinal: Yes: Normal Bowel Sounds, Soft Genitourinary: Yes: Incontinence Musculoskeletal: Yes: Muscle Weakness Extremities: Yes: Other (generalized atrophy, contractures) Edema: No Peripheral Pulses WNL: Yes Neurological: Yes: Alert, Pre-Existing Deficit Labs: CBC, BMP 12/29/19 06:48 12/29/19 06:48 INR, PTT INR 1.19 (0.83-1.09) H 12/20/19 13:00 Problem List - Problems (1) Pneumonia Assessment/Plan: -CXR BL patchy infiltrates- repeat CXR in AM -CTAP- BL infiltrates L>R -ID consult -Pulmonary consult -IV abx- Day 9 on Zosyn, complete 10 days tomorrow- d/c home after -O2 tx to keep Spo2 >90% -Afebrile -Keep HOB >30 degrees at all times -Bronchodilators -Continue Bolus feeds and keep pt upright at 45 degrees for at least 45 mins Problems reviewed: Yes Code(s): J18.9 - PNEUMONIA, UNSPECIFIED ORGANISM Qualifiers: Pneumonia type: due to unspecified organism Laterality: bilateral Lung location: unspecified part of lung Qualified Code(s): J18.9 - Pneumonia, unspecified organism (2) Supranuclear palsy Problems reviewed: Yes Code(s): G23.1 - PROGRESSIVE SUPRANUCLEAR OPHTHALMOPLEGIA (3) Parkinson disease Assessment/Plan: -Continue Sinemet Problems reviewed: Yes Code(s): G20 - PARKINSON'S DISEASE (4) Functional quadriplegia Problems reviewed: Yes Code(s): R53.2 - FUNCTIONAL QUADRIPLEGIA Assessment/Plan See problem list Left msg for Aminta Kaplan at [phone], who is a surgeon to update pt status. Plan for D/C home in AM
[2019-12-29] MEDS: MULTIVIT-MINERALS ORAL LIQUID GT SCH (10:55)
[2019-12-29] MEDS: CARBIDOPA/LEVODOPA 25/250 TABLET (FP) PEG SCH ×4 (10:55→22:10)
[2019-12-29] MEDS: DOXAZOSIN MESYLATE 4 MG TABLET GT SCH (10:55)
[2019-12-29] MEDS: ENOXAPARIN NA (PORCINE) 40 MG/0.4 ML DISP.SYRIN SQ SCH (10:56)
--- NOTE | 2019-12-29 11:32 | PN ---
Progress Note (short form) - Note Progress Note: nonverbal, opens eyes doing well with bolus feeds day #9 of 10 zosyn Vital Signs Period Temp Pulse Resp BP Sys/Villegas Pulse Ox Last 24 Hr 97.4 F-98.1 F 79-104 20-20 114-155/68-94 93-95 cor-rrr lungs-decreased bs at bases abd soft,nt +GT ext no edema CBC, BMP 12/29/19 06:48 12/29/19 06:48 Microbiology 12/20/19 14:29 Blood - Peripheral Venous Blood Culture - Final NO GROWTH AFTER 5 DAYS INCUBATION 12/20/19 13:00 Blood - Peripheral Venous Blood Culture - Final NO GROWTH AFTER 5 DAYS INCUBATION 12/20/19 21:30 Sputum - Expectorated Gram Stain - Final 12/20/19 21:30 Sputum - Expectorated Sputum Culture - Final Pseudomonas Aeruginosa 12/20/19 15:00 Urine - Urine - Catheterized Urine Culture - Final NO GROWTH OBTAINED 12/21/19 03:00 Urine - Urine Clean Catch Legionella Antigen - Final 12/21/19 03:00 Urine - Urine Clean Catch Streptococcus pneumoniae Antigen (M - Final a/p aspiration pneumonia-continue zosyn, day #02/01 carbapenem resistant pseudomonas contact isolation for the pseudomonas no po antibioitcs for home after the zosyn is done- d/w hospitalist clinically improving history of 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/parkinsons disease plese call back if needed Problem List - Problems (1) Pneumonia Code(s): J18.9 - PNEUMONIA, UNSPECIFIED ORGANISM Qualifiers: Pneumonia type: due to unspecified organism Laterality: bilateral Lung location: unspecified part of lung Qualified Code(s): J18.9 - Pneumonia, unspecified organism (2) Parkinson disease Code(s): G20 - PARKINSON'S DISEASE (3) Supranuclear palsy Code(s): G23.1 - PROGRESSIVE SUPRANUCLEAR OPHTHALMOPLEGIA
--- NOTE | 2019-12-29 11:54 | PN ---
Progress Note (short form) - Note Progress Note: Patient nonverbal. Breathing is non-labored on 5 L NC O2. No acute events overnight. Intake & Output 12/26/19 12/27/19 12/28/19 12/29/19 23:59 23:59 23:59 23:59 Intake Total 1250 1100 450 420 Output Total 400 2 Balance 850 1100 450 418 Last Vital Signs Temp Pulse Resp BP Pulse Ox 97.9 F 89 20 146/94 95 12/29/19 05:41 12/29/19 05:41 12/29/19 05:41 12/29/19 05:41 12/29/19 05:41 Active Medications Acetaminophen (Tylenol -) 650 mg PO Q4H PRN PRN Reason: PAIN 1-3 Last Admin: 12/29/19 02:44 Dose: 650 mg Documented by: Albuterol Sulfate (Ventolin 0.083% Nebulizer Soln -) 1 amp NEB Q4H PRN PRN Reason: SHORT OF BREATH/WHEEZING Last Admin: 12/26/19 01:12 Dose: 1 amp Documented by: Albuterol/Ipratropium (Duoneb -) 1 amp NEB RQID [facility] Last Admin: 12/29/19 11:41 Dose: 1 amp Documented by: Amino Acids (Prosource No Carb Liquid Pkt) 30 ml GT BID@0800,1730 [facility] Last Admin: 12/29/19 08:46 Dose: 30 ml Documented by: Baclofen (Lioresal -) 10 mg PO TID PRN PRN Reason: BACK PAIN Last Admin: 12/29/19 02:44 Dose: 10 mg Documented by: Carbidopa/Levodopa (Sinemet 25/250 -) 1 each PEG QID [facility] Last Admin: 12/29/19 10:55 Dose: 1 each Documented by: Doxazosin Mesylate (Cardura -) 4 mg GT DAILY [facility] Last Admin: 12/29/19 10:55 Dose: 4 mg Documented by: Enoxaparin Sodium (Lovenox -) 40 mg SQ DAILY [facility] Last Admin: 12/29/19 10:56 Dose: 40 mg Documented by: Piperacillin Sod/Tazobactam (Sod 3.375 gm/ Dextrose) 50 mls @ 100 mls/hr IVPB Q6H-IV [facility]; Protocol Last Admin: 12/29/19 08:46 Dose: 100 mls/hr Documented by: Mirtazapine (Remeron -) 15 mg GT HS [facility] Last Admin: 12/28/19 22:03 Dose: 15 mg Documented by: Multivitamins/Minerals (Certavite-Antioxidant Liquid) 15 ml GT DAILY [facility] Last Admin: 12/29/19 10:55 Dose: 15 ml Documented by: Gen: nonverbal Heart: RRR Lung: bilateral rhonchi Abd: soft, nontender Ext: no edema Laboratory Results - last 24 hr 12/29/19 12/29/19 06:48 06:48 WBC 7.6 RBC 4.23 Hgb 12.7 Hct 39.0 MCV 92.2 MCH 30.0 MCHC 32.6 RDW 13.7 Plt Count 345 MPV 8.0 Absolute Neuts (auto) 6.1 Neutrophils % 79.4 Lymphocytes % 12.5 Monocytes % 5.7 Eosinophils % 2.0 D Basophils % 0.4 Nucleated RBC % 0 Sodium 144 Potassium 3.4 L Chloride 108 H Carbon Dioxide 29 Anion Gap 8 BUN 14.0 Creatinine 0.7 Est GFR (CKD-EPI)AfAm 113.98 Est GFR (CKD-EPI)NonAf 98.34 Random Glucose 93 Calcium 8.4 L Total Bilirubin 0.7 AST 26 ALT 25 Alkaline Phosphatase 64 Total Protein 6.6 Albumin 2.8 L A/P Pneumonia likely Aspiration carbapenem resistant pseudomonas Parkinsons Supranuclear Palsy BPH - continue antibiotics per ID - O2 to keep SpO2 >90% - inhaled bronchodilators - aspiration precautions - DVT prophylaxis Dr Scott
--- NOTE | 2019-12-29 12:43 | DS ---
Physical Examination Vital Signs: Vital Signs Temperature 97.9 F 12/29/19 05:41 Pulse Rate 89 12/29/19 05:41 Respiratory Rate 20 12/29/19 05:41 Blood Pressure 146/94 12/29/19 05:41 O2 Sat by Pulse Oximetry (%) 95 12/29/19 05:41 Findings/Remarks: (1) Pneumonia Assessment/Plan: -Repeat CXR shows improved congestion but LLL density persists -CTAP- BL infiltrates L>R -ID consult -Pulmonary consult -IV abx- Day 9 on Zosyn, complete 10 days tomorrow- d/c home after -O2 tx to keep Spo2 >90% -Afebrile -Keep HOB >30 degrees at all times -Bronchodilators -Continue Bolus feeds and keep pt upright at 45 degrees for at least 45 mins Problems reviewed: Yes Code(s): J18.9 - PNEUMONIA, UNSPECIFIED ORGANISM Qualifiers: Pneumonia type: due to unspecified organism Laterality: bilateral Lung location: unspecified part of lung Qualified Code(s): J18.9 - Pneumonia, unspecified organism (2) Supranuclear palsy Problems reviewed: Yes Code(s): G23.1 - PROGRESSIVE SUPRANUCLEAR OPHTHALMOPLEGIA (3) Parkinson disease Assessment/Plan: -Continue Sinemet Problems reviewed: Yes Code(s): G20 - PARKINSON'S DISEASE (4) Functional quadriplegia Problems reviewed: Yes Code(s): R53.2 - FUNCTIONAL QUADRIPLEGIA Assessment/Plan See problem list Left msg for Aminta Kaplan at [phone], who is a surgeon to update pt status. Plan for D/C home in AM Constitutional: Yes: Well Nourished, No Distress, Calm Cardiovascular: Yes: Regular Rate and Rhythm Respiratory: Yes: Regular, Rales (LLL) Gastrointestinal: Yes: Normal Bowel Sounds, Soft Renal/: Yes: Incontinence Musculoskeletal: Yes: Muscle Weakness Extremities: Yes: Other (generalized weakness+ contractures) Edema: No Peripheral Pulses WNL: Yes Neurological: Yes: Alert, Pre-Existing Deficit Labs: CBC, BMP 12/29/19 06:48 12/29/19 06:48 Discharge Summary Problems reviewed: Yes Reason For Visit: HYPOXIA SEPSIS PNEUMONIA Current Active Problems Functional quadriplegia (Acute) Gastric dysmotility (Acute) Gastrostomy status (Acute) Hypertension (Acute) Parkinson disease (Acute) Pneumonia (Acute) SOB (shortness of breath) (Acute) Sepsis (Acute) Condition: Stable - Instructions Referrals: Osmani Starks MD [Primary Care Provider] - Disposition: VNS/HOME HEALTH CARE - Home Medications Comprehensive Discharge Medication List: Ambulatory Orders Doxazosin Mesylate 4 mg GT DAILY 03/09/19 Mirtazapine 15 mg PO DAILY 03/09/19 Carbidopa/Levodopa 25/250 [Sinemet 25/250 -] 1 each PEG QID tablet 03/16/19 Mirabegron [Myrbetriq] 25 mg GT DAILY 12/20/19 Acetaminophen [Tylenol .Regular Strength -] 650 mg PO Q4H PRN tablet 12/29/19 Amino Acids/Protein Hydrolys [Prosource No Carb Liquid Pkt] 30 ml GT BID@0800,1730 #1 bottle 12/29/19 Baclofen [Lioresal -] 10 mg PO TID PRN tablet 12/29/19 Multivitamin 1 each GT DAILY #30 tablet 12/29/19 oxyCODONE HCL [Roxicodone -] 5 mg GT Q6H PRN tablet 12/29/19 Prescription Drug Monitoring Program (I-STOP) results: I-STOP reviewed and no issues identified
[2019-12-29] MEDS ORDERED: ALBUTEROL SO4 2.5/IPRATROPIUM 0.5 INH SOL 3 ML VIAL.NEB. NEB ONE (14:47)
[2019-12-29] MEDS: MIRTAZAPINE 15 MG TABLET (FP) GT SCH (22:10)
[2019-12-30] MEDS ORDERED: DEXTROSE 5%-WATER - 50 ML IVPB ONE ×2 (02:23→09:03)
[2019-12-30] MEDS ORDERED: PIPERACILLIN/TAZOBACTAM 3.375 GM VIAL IVPB ONE ×2 (02:23→09:03)
[2019-12-30] MEDS: PIPERACILLIN/TAZOB 3.375 GM 3.375 GM in DEXTROSE 5%-WATER - 50 ML IVPB SCH ×2 (02:49→09:06)
[2019-12-30] MEDS: ALBUTEROL SO4 2.5/IPRATROPIUM 0.5 INH SOL 3 ML VIAL.NEB. NEB SCH (08:40)
[2019-12-30] MEDS: DOXAZOSIN MESYLATE 4 MG TABLET GT SCH (09:04)
[2019-12-30] MEDS: CARBIDOPA/LEVODOPA 25/250 TABLET (FP) PEG SCH (09:05)
[2019-12-30] MEDS: AMINO ACIDS/PROTEIN HYDROLYS 30 ML LIQUID.PKT GT SCH (09:05)
[2019-12-30] MEDS: MULTIVIT-MINERALS ORAL LIQUID GT SCH (09:05)
[2019-12-30] MEDS: ACETAMINOPHEN 325 MG TABLET (FP) PO PRN (09:05)
[2019-12-30] MEDS: ENOXAPARIN NA (PORCINE) 40 MG/0.4 ML DISP.SYRIN SQ SCH (09:06)
[2019-12-30 10:25] VITALS: BP 122/79; PULSE 80; TEMP 97.9
--- NOTE | 2019-12-30 12:37 | DS ---
Physical Examination Vital Signs: Vital Signs Temperature 97.9 F 12/30/19 10:00 Pulse Rate 80 12/30/19 10:00 Respiratory Rate 18 12/30/19 10:00 Blood Pressure 122/79 12/30/19 10:00 O2 Sat by Pulse Oximetry (%) 95 12/30/19 10:00 Cardiovascular: Yes: S1, S2 Respiratory: Yes: Regular, CTA Bilaterally Gastrointestinal: Yes: Normal Bowel Sounds, Soft Labs: CBC, BMP 12/29/19 06:48 12/29/19 06:48 Discharge Summary Problems reviewed: Yes Reason For Visit: HYPOXIA SEPSIS PNEUMONIA Hospital Course: (1) Pneumonia Assessment/Plan: -Repeat CXR shows improved congestion but LLL density persists -CTAP- BL infiltrates L>R -ID consult -Pulmonary consult -IV abx- Day 9 on Zosyn, complete 10 days tomorrow- d/c home after -O2 tx to keep Spo2 >90% -Afebrile -Keep HOB >30 degrees at all times -Bronchodilators -Continue Bolus feeds and keep pt upright at 45 degrees for at least 45 mins Problems reviewed: Yes Code(s): J18.9 - PNEUMONIA, UNSPECIFIED ORGANISM Qualifiers: Pneumonia type: due to unspecified organism Laterality: bilateral Lung location: unspecified part of lung Qualified Code(s): J18.9 - Pneumonia, unspecified organism (2) Supranuclear palsy Problems reviewed: Yes Code(s): G23.1 - PROGRESSIVE SUPRANUCLEAR OPHTHALMOPLEGIA (3) Parkinson disease Assessment/Plan: -Continue Sinemet Problems reviewed: Yes Code(s): G20 - PARKINSON'S DISEASE (4) Functional quadriplegia Problems reviewed: Yes Code(s): R53.2 - FUNCTIONAL QUADRIPLEGIA Assessment/Plan See problem list Left msg for Aminta Kaplan at [phone], who is a surgeon to update pt status. Plan for D/C home in AM Constitutional: Yes: Well Nourished, No Distress, Calm Cardiovascular: Yes: Regular Rate and Rhythm Respiratory: Yes: Regular, Rales (LLL) Gastrointestinal: Yes: Normal Bowel Sounds, Soft Renal/: Yes: Incontinence Musculoskeletal: Yes: Muscle Weakness Extremities: Yes: Other (generalized weakness+ contractures) Edema: No Peripheral Pulses WNL: Yes Neurological: Yes: Alert, Pre-Existing Deficit Labs: Condition: Stable - Instructions Referrals: Osmani Starks MD [Primary Care Provider] - Disposition: VNS/HOME HEALTH CARE - Home Medications Comprehensive Discharge Medication List: Ambulatory Orders Doxazosin Mesylate 4 mg GT DAILY 03/09/19 Mirtazapine 15 mg PO DAILY 03/09/19 Carbidopa/Levodopa 25/250 [Sinemet 25/250 -] 1 each PEG QID tablet 03/16/19 Mirabegron [Myrbetriq] 25 mg GT DAILY 12/20/19 Acetaminophen [Tylenol .Regular Strength -] 650 mg PO Q4H PRN tablet 12/29/19 Amino Acids/Protein Hydrolys [Prosource No Carb Liquid Pkt] 30 ml GT BID@0800,1730 #1 bottle 12/29/19 Baclofen [Lioresal -] 10 mg PO TID PRN tablet 12/29/19 Multivitamin 1 each GT DAILY #30 tablet 12/29/19 oxyCODONE HCL [Roxicodone -] 5 mg GT Q6H PRN tablet 12/29/19
== END 2019-12-30 12:02 | disposition home health service (06) | DRG 871 ==
LOC: JER 12:28 → JERBED 18:00 → J7W 19:00
PROVIDERS: ADMIT Internal Medicine; ATTEND Family Medicine
DX: A41.52 Sepsis due to Pseudomonas (principal); J69.0 Pneumonitis due to inhalation of food and vomit; R53.2 Functional quadriplegia; G23.1 Progressive supranuclear ophthalmoplegia [Steele-Richardson-Olszewski]; I31.3 Pericardial effusion (noninflammatory); J98.11 Atelectasis; K21.9 Gastro-esophageal reflux disease without esophagitis; N40.0 Benign prostatic hyperplasia without lower urinary tract symptoms; I10 Essential (primary) hypertension; I45.10 Unspecified right bundle-branch block; R00.0 Tachycardia, unspecified; R13.10 Dysphagia, unspecified; F41.8 Other specified anxiety disorders; G20 Parkinson's disease; K31.89 Other diseases of stomach and duodenum; R06.02 Shortness of breath; L89.322 Pressure ulcer of left buttock, stage 2; Z74.01 Bed confinement status; Z93.1 Gastrostomy status
CPT/HCPCS: 36415; 71045-TC-FY; 74018-TC-FY; 74176-TC; 80053; 81003; 83605; 83735; 83880; 84100; 84484; 85025; 85027; 85610; 85730; 86850; 86900; 86901; 87040; 87070; 87086; 87186; 87205; 87899; 93005; 93010; 93306-TC; 94640; 99285-25; J0131; J0475; U0003

== ENCOUNTER 2020-01-24 22:14 | Inpatient (IN) | payer OTHER ==
[2020-01-24] MEDS ORDERED: RAPID SEQUENCE INTUBATION KIT NR ONE (22:23)
[2020-01-24] MEDS ORDERED: MIDAZOLAM 100 MG in SODIUM CHLORIDE 100 ML IVPB SCH (22:30)
[2020-01-24] MEDS ORDERED: PROPOFOL 1,000,000 MCG/100 ML VIAL ONE (22:40)
[2020-01-24] MEDS ORDERED: MIDAZOLAM IN 0.9 % SOD.CHLORID 1 MG/1 ML PLAST..BAG ONE (22:40)
[2020-01-24] MEDS ORDERED: ROCURONIUM BROMIDE 50 MG/5 ML VIAL IV ONE (22:45)
[2020-01-24] MEDS ORDERED: ETOMIDATE 40 MG/20 ML VIAL IVPUSH ONE (22:45)
--- NOTE | 2020-01-24 22:55 | PDOC ---
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 Son Danisham at bedside, is POA in conjunction with mother due to language barrier. Per son and EMS at bedside, patient has baseline motor paralysis and communicates only with his hands, non-verbal. On home oxygen 2L, oxygen saturation normally above 93%, today was as low as 80% with worsening mental status when son when to check. Per son, has been afebrile for the last week, but has had thick secretions and coughing. EMS on scene found O2 sat 80% while on 4L of home O2, up to 90% with BVM, normotensive, and non-tachycardic. Brought in to ED for respiratory distress and worsening O2 saturation. Past History - Medical History Allergies/Adverse Reactions: Allergies Allergy/AdvReac Type Severity Reaction Status Date / Time No Known Allergies Allergy Verified 01/24/20 22:44 Home Medications: Ambulatory Orders Doxazosin Mesylate 4 mg GT DAILY 03/09/19 Mirtazapine 15 mg PO DAILY 03/09/19 Carbidopa/Levodopa 25/250 [Sinemet 25/250 -] 1 each PEG QID tablet 03/16/19 Mirabegron [Myrbetriq] 25 mg GT DAILY 12/20/19 Acetaminophen [Tylenol .Regular Strength -] 650 mg PO Q4H PRN tablet 12/29/19 Amino Acids/Protein Hydrolys [Prosource No Carb Liquid Pkt] 30 ml GT BID@0800,1730 #1 bottle 12/29/19 Baclofen [Lioresal -] 10 mg PO TID PRN tablet 12/29/19 Multivitamin 1 each GT DAILY #30 tablet 12/29/19 oxyCODONE HCL [Roxicodone -] 5 mg GT Q6H PRN tablet 12/29/19 Anemia: No Asthma: No Cancer: No Cardiac Disorders: No CVA: No COPD: No CHF: No Dementia: No Diabetes: No GI Disorders: Yes (GERD) Disorders: (BPH) HTN: Yes Hypercholesterolemia: No Seizures: No - Surgical History Abdominal Surgery: (G-TUBE) - Immunization History Immunization Up to Date: Yes - Psycho-Social/Smoking History Smoking History: Unknown if ever smoked Have you smoked in the past 12 months: No Review of Systems - Review of Systems Able to Perform ROS?: No (nonverbal) *Physical Exam - Vital Signs Last Vital Signs Temp Pulse Resp BP Pulse Ox 97.1 F L 109 H 29 H 132/72 90 L 01/24/20 22:15 01/24/20 22:15 01/24/20 22:15 01/24/20 22:15 01/24/20 22:15 - Physical Exam General Appearance: Yes: Nourished, Appropriately Dressed, Moderate Distress, Thin, Other (stiff body, lying in bed immobile, breathing spontanesouly) HEENT: positive: EOMI, TOM, Symmetrical, Muffled/Hoarse voice, Other (face and jaw stiff, oropharynx limited view due to jaw stiffness, good dentition, thick /brown secretions to suction). negative: Normal ENT Inspection, Pharynx Normal, Scleral Icterus (R), Scleral Icterus (L), Pharyngeal Erythema, Tonsillar Exudate, Tonsillar Erythema Neck: positive: Trachea midline, Normal Thyroid, Rigid, Decreased range of motion (difficult flexion and extension). negative: Tender, Lymphadenopathy (R), Lymphadenopathy (L), Tender lateral, Tender midline Respiratory/Chest: positive: Lungs Clear, Normal Breath Sounds, Labored Respiration, Rapid RR. negative: Chest Tender, Respiratory Distress, Accessory Muscle Use, Crackles, Rales, Rhonchi, Stridor, Wheezing Cardiovascular: positive: Regular Rhythm, Tachycardia. negative: Murmur Gastrointestinal/Abdominal: positive: Normal Bowel Sounds, Soft, Other (R abdomen PEG in place). negative: Tender, Pulsatile Mass, Guarding, Rebound, Hernia Musculoskeletal: positive: Normal Inspection, Decreased Range of Motion (stiffness to flexion at the hips) Extremity: positive: Normal Capillary Refill, Normal Inspection. negative: Normal Range of Motion (rigid), Tender, Pedal Edema, Swelling, Calf Tenderness Integumentary: positive: Normal Color, Dry, Warm Neurologic: positive: Respond to painful stimul. negative: Alert, Normal Mood/Affect Procedures - Chest Tube Left Ant. Axillary Line 5th ICS Indication: Hemothorax E[place]rean Tube Size(cm): 32 Sterile Draping: Yes Sterile Technique: Yes Vaseline Gauze Dressing: No Suction: Yes Curved Clamp: Yes Tube Sutured to Skin: Yes Complications: No Post Procedure CXR: Yes (CTA) - Intubation Intubation Method: orotracheal Blade used: Mac Tube Size (Fr): 7.5 Medications: Etomidate (20), Rocuronium (50) Tube position @ lip (cm): 24 Tube position confirmed by: Direct visualization, CO2 detector, Chest x-ray, Breath sounds Breath Sounds after Intubation: equal Post Intubation Xray: Yes ED Treatment Course - LABORATORY CBC & Chemistry Diagram: 01/25/20 05:35 01/25/20 05:35 Medical Decision Making - Medical Decision Making 01/25/20 01:22 Patient has PSP with full body weakness/paralysis with PEG, rigid habitus, and reduced chest wall expansion, presented hypoxic to high 80s despite O2 and bag- mask ventilation, mucoid sputum, elevated concern for PNA, intubated in the ED. Sats improved on 400/14/5/100%. Nam Orellana at bedside, POA with mother, understands patient to be admitted to ICU. Full sepsis labs ordered. Sedated with propofol given stable BP with midazolam available as needed. Discussed case with night ICU team, accepts to ICU given intubation, pending labs. 01/25/20 01:44 Confirmatory CXR remarkable for opacification of the left lung with R middle lobe involvement consistent with PNA, likely aspiration, started on Zosyn. ECG sinus tachycardia with RBBB HR 101 Qtc 404 lateral FARA Labs notable for: - CBC WNL - ABG pH 7.219 with CO2 91.8, consistent with respiratory acidosis - CMP WNL - CP WNL - UA WNL Ventilator settings changed to increase RR to 18 to lo off excess CO2. 01/25/20 02:22 Patient began to desat to 80s and then 70s despite increased PEEP from 5 to 12 at maximum, ETT in appropriate position on CXR, repeat CXR showed significant fluid vs atelectasis in left lung with white-out of the entire left lower field. Presumed new fluid collection given mucoid sputum 2/2 PNA. Contacted nam Orellana to discuss case with family, is POA, approves chest tube, Full Code. Requests contacting other brother Dr. Marj Kaplan, who is not POA but is a cardiothroacic surgeon. Spoke to other brother who understands severity of illness, will discuss DNR with family and will make decision later, for now Full Code. 01/25/20 03:11 32 Fr chest tube placed in 5th intercostal space and connected to Pleuravac to suction. 150cc dark serosanguinous fluid evacuated with chest tube placement. Confirmatory CXR shows small improvement to atelectasis but still white out to L lung, chest tube in place with tip at apex. Sats improved from low 80s to low 90s after chest tube placement. Chest CTA ordered to evaluate for underlying etiology of the atelectasis and fluid in left lung, concern for PE vs. acute effusion vs. PNA vs. covid vs. malignancy. Patient to be brought to ICU after CTA. Discharge - Discharge Information Problems reviewed: Yes Clinical Impression/Diagnosis: Respiratory failure Qualifiers: Chronicity: acute Respiratory failure complication: hypoxia Qualified Code(s): J96.01 - Acute respiratory failure with hypoxia Pneumonia Qualifiers: Pneumonia type: due to unspecified organism Laterality: bilateral Lung location : unspecified part of lung Qualified Code(s): J18.9 - Pneumonia, unspecified organism Condition: Fair - Admission Yes - Follow up/Referral - Patient Discharge Instructions - Post Discharge Activity
[2020-01-24] MEDS ORDERED: PIPERACILLIN/TAZOB 4.5 GM 4.5 GM in DEXTROSE 5%-WATER 100 ML IVPB ONE (22:59)
[2020-01-24] MEDS: PROPOFOL 1,000,000 MCG/100 ML VIAL IVPB SCH (23:19)
[2020-01-24] MEDS ORDERED: VANCOMYCIN 1 GRAM (PRE-DOCKED) 1,000 MG/250 ML BAG IVPB ONE ×2 (23:21→23:35)
[2020-01-24 23:27] LABS: ARTERIAL BLD GAS O2 SATURATION 97.5 mmHg (95-98); ARTERIAL BLOOD GAS BASE EXCESS 4.3 mmol/L (-2-2); ARTERIAL BLOOD GAS PO2 121.8 mmHg (80-100); ARTERIAL BLOOD GAS pH 7.219 (7.350-7.450)
[2020-01-24 23:28] LABS: ALLENS TEST POSITIVE
[2020-01-24 23:28] LABS: BASO % 0.1 % (0-2.0); HEMATOCRIT 39.4 % (35.4-49); HEMOGLOBIN 12.9 GM/dL (11.7-16.9); LYMPH % 6.2 % (8-40); MCH 30.9 pg (25.7-33.7); MCHC 32.8 g/dl (32.0-35.9); MEAN CELL VOLUME 94.1 fl (80-96); MEAN PLT VOLUME 8.8 fl (7.5-11.1); MONO % 6.2 % (3.8-10.2); NEUT % 87.5 % (42.8-82.8); PLATELET COUNT 219 K/MM3 (134-434); RBC 4.19 M/mm3 (4.00-5.60); RDW 15.8 % (11.9-15.9); WHITE BLOOD COUNT 7.7 K/mm3 (4.0-10.0)
[2020-01-24 23:30] LABS: VENT MODE VOL-AC; VENT RATE 14
[2020-01-24] MEDS ORDERED: PIPERACILLIN/TAZOB 4.5 GM 4.5 GM/100 ML BAG IVPB ONE (23:35)
[2020-01-24 23:43] LABS: ACTIVATED PTT 33.1 SECONDS (25.2-36.5)
[2020-01-24 23:46] LABS: INR 1.15 (0.83-1.09); PROTHROMBIN TIME (PATIENT) 13.6 SEC (9.7-13.0)
[2020-01-24 23:58] LABS: ALBUMIN 2.7 g/dl (3.4-5.0); BILIRUBIN,TOTAL 0.5 mg/dL (0.2-1); BLOOD UREA NITROGEN 25.8 mg/dL (7-18); CALCIUM 8.9 mg/dL (8.5-10.1); CREATININE 0.5 mg/dL (0.55-1.3); POTASSIUM 4.3 mmol/L (3.5-5.1); TOT PROT 6.8 g/dl (6.4-8.2)
[2020-01-25] LABS: EPI CELLS 12 /uL (0-25.1); HYALINE CASTS 2 /uL (0-3.1); PH,URINE 5.5 (5.0-8.0); URINE APPEARANCE CLEAR; URINE BACTERIA 3 /uL (0-1359); URINE BILIRUBIN NEGATIVE (NEGATIVE); URINE COLOR YELLOW; URINE GLUCOSE (UA) NEGATIVE (NEGATIVE); URINE KETONE TRACE (NEGATIVE); URINE LEUK ESTERASE NEGATIVE (NEGATIVE); URINE NITRITE NEGATIVE (NEGATIVE); URINE PROTEIN 1+ (NEGATIVE); URINE RBC 35 /uL (0-23.9); URINE UROBILINOGEN 0.2 mg/dL (0.2-1.0); URINE WBC 3 /uL (0-25.8)
[2020-01-25] MEDS ORDERED: SODIUM CHLORIDE 1,000 ML IV SCH (00:15)
[2020-01-25] MEDS: MUPIROCIN 2% TOPICAL OINTMENT FOR DECOLONIZATION NS SCH ×3 (00:15→21:03)
--- NOTE | 2020-01-25 00:36 | PDOC ---
Attending Attestation - Resident Resident Name: Wilian Ziegler - ED Attending Attestation I have performed the following: I have examined & evaluated the patient, The case was reviewed & discussed with the resident, I agree w/resident's findings & plan - HPI HPI: 01/25/20 00:36 see resident hpi - Physicial Exam PE: 01/25/20 00:36 see resident exam - Critical Care Time Total Critical Care Time: 90 Critical Care Statement: The care of this patient involved high complexity decision making to prevent further life threatening deterioration of the patient's condition and/or to evaluate & treat vital organ system(s) failure or risk of failure. - Medical Decision Making 01/25/20 00:36 64-year-old male with history of PSP with difficulty breathing Patient intubated on arrival due to to copious secretions and inability to protect airway as well as increased work of breathing and respiratory distress Post intubation x-ray confirms tube placement, there is large left-sided infiltrate Zosyn given for included aspiration pneumonia coverage We will admit to ICU for further management Discharge - Discharge Information Problems reviewed: Yes Clinical Impression/Diagnosis: Respiratory failure Qualifiers: Chronicity: acute Respiratory failure complication: hypoxia Qualified Code(s): J96.01 - Acute respiratory failure with hypoxia Pneumonia Qualifiers: Pneumonia type: due to unspecified organism Laterality: bilateral Lung location: unspecified part of lung Qualified Code(s): J18.9 - Pneumonia, unspecified organism Condition: Fair - Follow up/Referral - Patient Discharge Instructions - Post Discharge Activity
--- NOTE | 2020-01-25 00:43 | CONSULT ---
Consultation: REQUESTING PROVIDER: CONSULT REQUEST: We have been asked to medically evaluate this patient for (specify). HISTORY OF PRESENT ILLNESS: REVIEW OF SYSTEMS: CONSTITUTIONAL: Absent: fever, chills, diaphoresis, generalized weakness, malaise, loss of appetite, weight change HEENT: Absent: rhinorrhea, nasal congestion, throat pain, throat swelling, difficulty swallowing, mouth swelling, ear pain, eye pain, visual changes CARDIOVASCULAR: Absent: chest pain, syncope, palpitations, irregular heart rate, lightheadedness, peripheral edema RESPIRATORY: Absent: cough, shortness of breath, dyspnea with exertion, orthopnea, wheezing, stridor, hemoptysis GASTROINTESTINAL: Absent: abdominal pain, abdominal distension, nausea, vomiting, diarrhea, constipation, melena, hematochezia GENITOURINARY: Absent: dysuria, frequency, urgency, hesitancy, hematuria, flank pain, genital pain MUSCULOSKELETAL: Absent: myalgia, arthralgia, joint swelling, back pain, neck pain SKIN: Absent: rash, itching, pallor HEMATOLOGIC/IMMUNOLOGIC: Absent: easy bleeding, easy bruising, lymphadenopathy, frequent infections ENDOCRINE: Absent: unexplained weight gain, unexplained weight loss, heat intolerance, cold intolerance NEUROLOGIC: Absent: headache, focal weakness or paresthesias, dizziness, unsteady gait, seizure, mental status changes, bladder or bowel incontinence PSYCHIATRIC: Absent: anxiety, depression, suicidal or homicidal ideation, hallucinations. PHYSICAL EXAMINATION Vital Signs - 24 hr 01/24/20 01/24/20 01/24/20 22:15 22:45 23:51 Temperature 97.1 F L Pulse Rate 109 H 105 H Pulse Rate [ Right] Respiratory 29 H 14 Rate Blood Pressure 132/72 Blood Pressure [Left Arm] O2 Sat by Pulse 90 L 100 97 Oximetry (%) 01/25/20 00:00 Temperature Pulse Rate Pulse Rate [ 103 H Right] Respiratory 14 Rate Blood Pressure Blood Pressure 103/72 [Left Arm] O2 Sat by Pulse 96 Oximetry (%) GENERAL: Awake, alert, and fully oriented, in no acute distress. HEAD: Normal with no signs of trauma. EYES: Pupils equal, round and reactive to light, extraocular movements intact, sclera anicteric, conjunctiva clear. No lid lag. EARS, NOSE, THROAT: Ears normal, nares patent, oropharynx clear without exudates. Moist mucous membranes. NECK: Normal range of motion, supple without lymphadenopathy, JVD, or masses. LUNGS: Breath sounds equal, clear to auscultation bilaterally. No wheezes, and no crackles. No accessory muscle use. HEART: Regular rate and rhythm, normal S1 and S2 without murmur, rub or gallop. ABDOMEN: Soft, nontender, not distended, normoactive bowel sounds, no guarding, no rebound, no masses. No hepatomegaly or splenomegaly. MUSCULOSKELETAL: Normal range of motion at all joints. No bony deformities or tenderness. No CVA tenderness. UPPER EXTREMITIES: 2+ pulses, warm, well-perfused. No cyanosis. No clubbing. Cap refill <2 seconds. No peripheral edema. LOWER EXTREMITIES: 2+ pulses, warm, well-perfused. No calf tenderness. No peripheral edema. NEUROLOGICAL: Cranial nerves II-XII intact. Normal speech. Normal gait. PSYCHIATRIC: Cooperative. Good eye contact. Appropriate mood and affect. SKIN: Warm, dry, normal turgor, no rashes or lesions noted. Laboratory Results - last 24 hr 01/24/20 01/24/20 01/24/20 22:55 23:05 23:05 WBC 7.7 RBC 4.19 Hgb 12.9 Hct 39.4 MCV 94.1 MCH 30.9 MCHC 32.8 RDW 15.8 D Plt Count 219 D MPV 8.8 Absolute Neuts (auto) 6.7 Neutrophils % 87.5 H Lymphocytes % 6.2 L D Monocytes % 6.2 Eosinophils % 0.0 D Basophils % 0.1 Nucleated RBC % 0 PT with INR INR PTT (Actin FS) Anticoagulation Therapy No Result Required. Puncture Site Right radial Patient Temperature No Result Required. ABG pH 7.219 L ABG pCO2 91.80 H* ABG pO2 121.8 H ABG HCO3 36.6 H ABG O2 Sat (Measured) 97.5 ABG O2 Content No Result Required. ABG Base Excess 4.3 H Darion Test Positive Patient On Oxygen Yes O2 Delivery Device Ventilator Oxygen Flow Rate 100 Vent Mode Vol-ac Vent Rate 14 Mechanical Rate No Result Required. PEEP 5.0 Pressure Support Vent 400 Sodium 139 Potassium 4.3 Chloride 98 Carbon Dioxide 37 H Anion Gap 4 L BUN 25.8 H Creatinine 0.5 L Est GFR (CKD-EPI)AfAm 130.88 Est GFR (CKD-EPI)NonAf 112.92 Random Glucose 168 H Calcium 8.9 Total Bilirubin 0.5 AST 13 L ALT 6 L Alkaline Phosphatase 84 Total Protein 6.8 Albumin 2.7 L Urine Color Urine Appearance Urine pH Ur Specific [place] Urine Protein Urine Glucose (UA) Urine Ketones Urine Blood Urine Nitrite Urine Bilirubin Urine Urobilinogen Ur Leukocyte Esterase Urine WBC (Auto) Urine RBC (Auto) Urine Casts (Auto) U Epithel Cells (Auto) Urine Bacteria (Auto) 01/24/20 01/24/20 23:05 23:15 WBC RBC Hgb Hct MCV MCH MCHC RDW Plt Count MPV Absolute Neuts (auto) Neutrophils % Lymphocytes % Monocytes % Eosinophils % Basophils % Nucleated RBC % PT with INR 13.60 H INR 1.15 H PTT (Actin FS) 33.1 Anticoagulation Therapy Puncture Site Patient Temperature ABG pH ABG pCO2 ABG pO2 ABG HCO3 ABG O2 Sat (Measured) ABG O2 Content ABG Base Excess Darion Test Patient On Oxygen O2 Delivery Device Oxygen Flow Rate Vent Mode Vent Rate Mechanical Rate PEEP Pressure Support Vent Sodium Potassium Chloride Carbon Dioxide Anion Gap BUN Creatinine Est GFR (CKD-EPI)AfAm Est GFR (CKD-EPI)NonAf Random Glucose Calcium Total Bilirubin AST ALT Alkaline Phosphatase Total Protein Albumin Urine Color Yellow Urine Appearance Clear Urine pH 5.5 D Ur Specific [place] 1.029 Urine Protein 1+ H Urine Glucose (UA) Negative Urine Ketones Trace H Urine Blood Negative Urine Nitrite Negative Urine Bilirubin Negative Urine Urobilinogen 0.2 Ur Leukocyte Esterase Negative Urine WBC (Auto) 3 Urine RBC (Auto) 35 Urine Casts (Auto) 2 U Epithel Cells (Auto) 12 Urine Bacteria (Auto) 3 Active Medications Generic Name Dose Route Start Last Admin Trade Name Pa PRN Reason Stop Dose Admin Chlorhexidine Gluconate 1 applic 01/25/20 22:00 Hibiclens For Decolonization - TP HS AMRITA Enoxaparin Sodium 40 mg 01/25/20 10:00 Lovenox - SQ DAILY AMRITA Midazolam HCl 100 mg/ Sodium 100 mls @ 1 mls/hr 01/24/20 22:30 01/24/20 23:47 Chloride IVPB 1 mg/hr TITR AMRITA 1 mls/hr Administration Protocol 1 MG/HR Propofol 1,000,000 mcg in 100 mls @ 2.449 mls/hr 01/24/20 22:45 01/25/20 00:17 Diprivan - IVPB 10 mcg/kg/min TITR AMRITA 4.899 mls/hr Titration Protocol 5 MCG/KG/MIN Vancomycin HCl 1,000 mg in 250 mls @ 166.667 mls/hr 01/24/20 23:21 01/25/20 00:17 Vancomycin (Pre-Docked) IVPB 01/25/20 00:50 166.667 mls/hr ONCE ONE Administration Sodium Chloride 1,000 mls @ 75 mls/hr 01/25/20 00:15 Normal Saline - IV ASDIR AMRITA Mupirocin 1 applic 01/25/20 00:15 Bactroban Ointment (For Decolonization) - NS 01/30/20 00:14 BID AMRITA ASSESSMENT/PLAN: Dispo: We will continue to follow the patient. Thank you for this consultative opportunity. ATTENDING PHYSICIAN STATEMENT I saw and evaluated the patient. I reviewed the resident's note and discussed the case with the resident. I agree with the resident's findings and plan as documented. SUBJECTIVE: OBJECTIVE: ASSESSMENT AND PLAN:
--- NOTE | 2020-01-25 01:31 | CONSULT ---
Consultation: REQUESTING PROVIDER: Dr. Mishra CONSULT REQUEST: We have been asked to medically evaluate this patient for ICU admission. HISTORY OF PRESENT ILLNESS: This is a 64 year old non-verbal male with PMH of Parkinson's disease with Supranuclear palsy with PEG tube placed. Last admission at [facility] was in November for Aspiration PNA. Pt unable to communicate and family not present at bedside. As per ER staff, pt was with AMS earlier today, pt is non verbal at baseline but is able to communicate minimally using hand gestures. EMS was called and pt was found to be hypoxic in the 80s on home oxygen of 2L, which improved to 90s after Ambu bagging. In the ER, he was sedated and intubated, septic workup initiated, and admitted to the ICU. In the ER pt again began to desat, CXR showed massive left sided effusion/infiltrate and chest tube was palced with improvement in SpO2. REVIEW OF SYSTEMS: CONSTITUTIONAL: Absent: fever, chills, diaphoresis, generalized weakness, malaise, loss of appetite, weight change HEENT: Absent: rhinorrhea, nasal congestion, throat pain, throat swelling, difficulty swallowing, mouth swelling, ear pain, eye pain, visual changes CARDIOVASCULAR: Absent: chest pain, syncope, palpitations, irregular heart rate, lightheadedness, peripheral edema RESPIRATORY: Absent: cough, shortness of breath, dyspnea with exertion, orthopnea, wheezing, stridor, hemoptysis GASTROINTESTINAL: Absent: abdominal pain, abdominal distension, nausea, vomiting, diarrhea, constipation, melena, hematochezia GENITOURINARY: Absent: dysuria, frequency, urgency, hesitancy, hematuria, flank pain, genital pain MUSCULOSKELETAL: Absent: myalgia, arthralgia, joint swelling, back pain, neck pain SKIN: Absent: rash, itching, pallor HEMATOLOGIC/IMMUNOLOGIC: Absent: easy bleeding, easy bruising, lymphadenopathy, frequent infections ENDOCRINE: Absent: unexplained weight gain, unexplained weight loss, heat intolerance, cold intolerance NEUROLOGIC: Absent: headache, focal weakness or paresthesias, dizziness, unsteady gait, seizure, mental status changes, bladder or bowel incontinence PSYCHIATRIC: Absent: anxiety, depression, suicidal or homicidal ideation, hallucinations. PHYSICAL EXAMINATION Vital Signs - 24 hr 01/24/20 01/24/20 01/24/20 22:15 22:45 23:51 Temperature 97.1 F L Pulse Rate 109 H 105 H Pulse Rate [ Right] Respiratory 29 H 14 Rate Blood Pressure 132/72 Blood Pressure [Left Arm] O2 Sat by Pulse 90 L 100 97 Oximetry (%) 01/25/20 00:00 Temperature Pulse Rate Pulse Rate [ 103 H Right] Respiratory 14 Rate Blood Pressure Blood Pressure 103/72 [Left Arm] O2 Sat by Pulse 96 Oximetry (%) GENERAL: AOx0, non verbal, sedated and intubated HEAD: Normal with no signs of trauma. EYES: Pupils equal, round and reactive to light, extraocular movements intact, sclera anicteric, conjunctiva clear. No lid lag. EARS, NOSE, THROAT: Ears normal, nares patent, oropharynx clear without exudates. Moist mucous membranes. NECK: Normal range of motion, supple without lymphadenopathy, JVD, or masses. LUNGS: Decreased breath sounds BL, L sided chest tube in place HEART: Regular rate and rhythm, normal S1 and S2 without murmur, rub or gallop. ABDOMEN: Soft, nontender, PEG tube in RUQ MUSCULOSKELETAL: Normal range of motion at all joints. No bony deformities or tenderness. No CVA tenderness. UPPER EXTREMITIES: 2+ pulses, warm, well-perfused. No cyanosis. No clubbing. No peripheral edema. LOWER EXTREMITIES: 2+ pulses, warm, well-perfused. No calf tenderness. No peripheral edema. NEUROLOGICAL: Unable to follow commands PSYCHIATRIC: Cooperative. Good eye contact. Appropriate mood and affect. SKIN: Grade II ulcer on L buttock, no erythema, no DC Laboratory Results - last 24 hr 01/24/20 01/24/20 01/24/20 22:55 23:05 23:05 WBC 7.7 RBC 4.19 Hgb 12.9 Hct 39.4 MCV 94.1 MCH 30.9 MCHC 32.8 RDW 15.8 D Plt Count 219 D MPV 8.8 Absolute Neuts (auto) 6.7 Neutrophils % 87.5 H Lymphocytes % 6.2 L D Monocytes % 6.2 Eosinophils % 0.0 D Basophils % 0.1 Nucleated RBC % 0 PT with INR INR PTT (Actin FS) Anticoagulation Therapy No Result Required. Puncture Site Right radial Patient Temperature No Result Required. ABG pH 7.219 L ABG pCO2 91.80 H* ABG pO2 121.8 H ABG HCO3 36.6 H ABG O2 Sat (Measured) 97.5 ABG O2 Content No Result Required. ABG Base Excess 4.3 H Darion Test Positive Patient On Oxygen Yes O2 Delivery Device Ventilator Oxygen Flow Rate 100 Vent Mode Vol-ac Vent Rate 14 Mechanical Rate No Result Required. PEEP 5.0 Pressure Support Vent 400 Sodium 139 Potassium 4.3 Chloride 98 Carbon Dioxide 37 H Anion Gap 4 L BUN 25.8 H Creatinine 0.5 L Est GFR (CKD-EPI)AfAm 130.88 Est GFR (CKD-EPI)NonAf 112.92 Random Glucose 168 H Calcium 8.9 Total Bilirubin 0.5 AST 13 L ALT 6 L Alkaline Phosphatase 84 Total Protein 6.8 Albumin 2.7 L Urine Color Urine Appearance Urine pH Ur Specific [place] Urine Protein Urine Glucose (UA) Urine Ketones Urine Blood Urine Nitrite Urine Bilirubin Urine Urobilinogen Ur Leukocyte Esterase Urine WBC (Auto) Urine RBC (Auto) Urine Casts (Auto) U Epithel Cells (Auto) Urine Bacteria (Auto) 01/24/20 01/24/20 23:05 23:15 WBC RBC Hgb Hct MCV MCH MCHC RDW Plt Count MPV Absolute Neuts (auto) Neutrophils % Lymphocytes % Monocytes % Eosinophils % Basophils % Nucleated RBC % PT with INR 13.60 H INR 1.15 H PTT (Actin FS) 33.1 Anticoagulation Therapy Puncture Site Patient Temperature ABG pH ABG pCO2 ABG pO2 ABG HCO3 ABG O2 Sat (Measured) ABG O2 Content ABG Base Excess Darion Test Patient On Oxygen O2 Delivery Device Oxygen Flow Rate Vent Mode Vent Rate Mechanical Rate PEEP Pressure Support Vent Sodium Potassium Chloride Carbon Dioxide Anion Gap BUN Creatinine Est GFR (CKD-EPI)AfAm Est GFR (CKD-EPI)NonAf Random Glucose Calcium Total Bilirubin AST ALT Alkaline Phosphatase Total Protein Albumin Urine Color Yellow Urine Appearance Clear Urine pH 5.5 D Ur Specific [place] 1.029 Urine Protein 1+ H Urine Glucose (UA) Negative Urine Ketones Trace H Urine Blood Negative Urine Nitrite Negative Urine Bilirubin Negative Urine Urobilinogen 0.2 Ur Leukocyte Esterase Negative Urine WBC (Auto) 3 Urine RBC (Auto) 35 Urine Casts (Auto) 2 U Epithel Cells (Auto) 12 Urine Bacteria (Auto) 3 Active Medications Generic Name Dose Route Start Last Admin Trade Name Freq PRN Reason Stop Dose Admin Chlorhexidine Gluconate 1 applic 01/25/20 22:00 Hibiclens For Decolonization - TP HS AMRITA Enoxaparin Sodium 40 mg 01/25/20 10:00 Lovenox - SQ DAILY [facility] Midazolam HCl 100 mg/ Sodium 100 mls @ 1 mls/hr 01/24/20 22:30 01/24/20 23:47 Chloride IVPB 1 mg/hr TITR AMRITA 1 mls/hr Administration Protocol 1 MG/HR Propofol 1,000,000 mcg in 100 mls @ 2.449 mls/hr 01/24/20 22:45 01/25/20 00:17 Diprivan - IVPB 10 mcg/kg/min TITR AMRITA 4.899 mls/hr Titration Protocol 5 MCG/KG/MIN Sodium Chloride 1,000 mls @ 75 mls/hr 01/25/20 00:15 Normal Saline - IV ASDIR AMRITA Mupirocin 1 applic 01/25/20 00:15 Bactroban Ointment (For Decolonization) - NS 01/30/20 00:14 BID AMRITA ASSESSMENT/PLAN: 64M with PMH of Parkinson's disease with Supranuclear palsy with PEG tube placed. Last admission at [facility] was in November for Aspiration PNA. Found to be hypoxic in 80s on 2L home O2 with AMS earlier today, was intubated in the ER and admitted to the ICU. 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 - CT Head: Possible sinusitis, no other acute pathology - Sedated on Propofol, Midazolam, and Fentanyl - Resume home Sinamet #Resp - Acute hypoxic, hypercapnic respiratory failure - Vented, PEEP 12, FiO2 100, would recommend lowering FiO2 since pt currently with SpO2 100% - ABG: Resp Acidosis with metabolic compensation, pH 7.219, pCO2 91.8, HCO3 36.6 - CXR: L sided massive effusion - CT Chest: Collapsed L lower lobe, possibly 2/2 aspiration with ROBERT infiltrate, scattered R lung infiltrates likely representing PNA Small pericardial effusion, Mild mediastinal adenopathy, possibly reactive to pneumonia, tiny residual left pneumothorax s/p chest tube placement #CVS - BP currently in 90s/60 with MAP >65 - Will start on N/S @ 75 #Renal - BUN/Cr 25.8/0.5 - UA 1+ Protein with trace ketones - Merchant in place #ID - Started on Zosyn/Vanc - Previously (12/19) sputum cx positive for Pseudomonas sensitice to Zosyn, resistant to Meropenem - Blood, sputum, urine cx ordered - ID consulted #FEN - N/S @ [address] - [address] dietary consult and resume home Jevity once stable #Prophylaxis - Lovenox #Dispo - ICU monitoring Visit type - Medication Review Med list reviewed for High Risk Meds patients 65 and older: Yes - Emergency Visit Emergency Visit: No - New Patient This patient is new to me today: No - Critical Care Critical Care patient: Yes Total Critical Care Time (in minutes): 37 Critical Care Statement: The care of this patient involved high complexity decision making to prevent further life threatening deterioration of the patient's condition and/or to evaluate & treat vital organ system(s) failure or risk of failure. ATTENDING PHYSICIAN STATEMENT I saw and evaluated the patient. I reviewed the resident's note and discussed the case with the resident. I agree with the resident's findings and plan as documented. SUBJECTIVE: OBJECTIVE: ASSESSMENT AND PLAN:
[2020-01-25] MEDS ORDERED: LIDOCAINE HCL 1%, 10 MG/ML (20ML VIAL) ONE (01:39)
[2020-01-25 01:55] LABS: ARTERIAL BLD GAS O2 SATURATION 69.7 mmHg (95-98); ARTERIAL BLOOD GAS BASE EXCESS 7.2 mmol/L (-2-2); ARTERIAL BLOOD GAS pH 7.336 (7.350-7.450)
[2020-01-25 01:57] LABS: ALLENS TEST POSITIVE
[2020-01-25 01:59] LABS: VENT MODE A/C; VENT RATE 24
[2020-01-25] MEDS ORDERED: MIDAZOLAM IN 0.9 % SOD.CHLORID 1 MG/1 ML PLAST..BAG ONE (06:29)
[2020-01-25 06:54] LABS: BASO % 0.1 % (0-2.0); EOS % 0.1 % (0-4.5); HEMATOCRIT 40.6 % (35.4-49); LYMPH % 3.6 % (8-40); MCH 30.6 pg (25.7-33.7); MEAN CELL VOLUME 95.4 fl (80-96); MEAN PLT VOLUME 9.2 fl (7.5-11.1); MONO % 6.3 % (3.8-10.2); NEUT % 89.9 % (42.8-82.8); PLATELET COUNT 207 K/MM3 (134-434); RBC 4.26 M/mm3 (4.00-5.60); RDW 15.8 % (11.9-15.9); WHITE BLOOD COUNT 10.5 K/mm3 (4.0-10.0)
[2020-01-25 07:01] LABS: INR 1.1 (0.83-1.09)
[2020-01-25 07:34] LABS: ALBUMIN 2.5 g/dl (3.4-5.0); BLOOD UREA NITROGEN 24.4 mg/dL (7-18); CALCIUM 8.6 mg/dL (8.5-10.1); CREATININE 0.5 mg/dL (0.55-1.3); POTASSIUM 4.5 mmol/L (3.5-5.1); TOT PROT 6.3 g/dl (6.4-8.2)
[2020-01-25] MEDS: SODIUM CHLORIDE 1,000 ML IV SCH (08:10)
[2020-01-25] MEDS ORDERED: PIPERACILLIN/TAZOBACTAM 3.375 GM VIAL IVPB ONE (09:13)
[2020-01-25] MEDS ORDERED: DEXTROSE 5%-WATER - 50 ML IVPB ONE (09:14)
--- NOTE | 2020-01-25 09:14 | EKG ---
Test Reason : Blood Pressure : / mmHG Vent. Rate : 101 BPM Atrial Rate : 101 BPM P-R Int : 150 ms QRS Dur : 114 ms QT Int : 358 ms P-R-T Axes : 088 -33 066 degrees QTc Int : 464 ms SINUS TACHYCARDIA LEFT AXIS DEVIATION RIGHT BUNDLE BRANCH BLOCK ST ELEVATION, CONSIDER EARLY REPOLARIZATION, PERICARDITIS, OR INJURY ABNORMAL ECG Confirmed by MD BERTRAND MOYSES ([id number]) on 01/25/2020 9:13:46 AM Referred By: Confirmed By:NURIA BERTRAND MD
--- NOTE | 2020-01-25 09:14 | EKG ---
Test Reason : Blood Pressure : / mmHG Vent. Rate : 101 BPM Atrial Rate : 101 BPM P-R Int : 150 ms QRS Dur : 114 ms QT Int : 358 ms P-R-T Axes : 088 -33 066 degrees QTc Int : 464 ms SINUS TACHYCARDIA LEFT AXIS DEVIATION RIGHT BUNDLE BRANCH BLOCK ST ELEVATION, CONSIDER EARLY REPOLARIZATION, PERICARDITIS, OR INJURY ABNORMAL ECG Confirmed by MD BERTRAND MOYSES ([id number]) on 01/25/2020 9:14:15 AM Referred By: Confirmed By:NURIA BERTRAND MD
[2020-01-25] MEDS: ENOXAPARIN NA (PORCINE) 40 MG/0.4 ML DISP.SYRIN SQ SCH (09:35)
--- NOTE | 2020-01-25 09:53 | PN ---
Progress Note, Physician - Current Medication List Current Medications: Active Medications Chlorhexidine Gluconate (Hibiclens For Decolonization -) 1 applic TP HS AMRITA Enoxaparin Sodium (Lovenox -) 40 mg SQ DAILY [facility] Last Admin: 01/25/20 09:35 Dose: 40 mg Documented by: Midazolam HCl 100 mg/ Sodium (Chloride) 100 mls @ 1 mls/hr IVPB TITR [facility]; Protocol Last Titration: 01/25/20 09:39 Dose: 7 mg/hr, 7 mls/hr Documented by: Propofol (Diprivan -) 1,000,000 mcg in 100 mls @ 2.449 mls/hr IVPB TITR [facility]; Protocol Last Titration: 01/25/20 07:24 Dose: 20 mcg/kg/min, 9.798 mls/hr Documented by: Piperacillin Sod/Tazobactam (Sod 3.375 gm/ Dextrose) 50 mls @ 100 mls/hr IVPB Q8H-IV [facility]RITA; Protocol Piperacillin Sod/Tazobactam (Sod 3.375 gm/ Dextrose) 50 mls @ 100 mls/hr IVPB Q8H-IV [facility]ITA Stop: 01/26/20 02:29 Last Admin: 01/25/20 09:36 Dose: 100 mls/hr Documented by: Vancomycin HCl (Vancomycin (Pre-Docked)) 1,000 mg in 250 mls @ 166.667 mls/hr IVPB ONCE ONE Stop: 01/25/20 11:29 Last Admin: 01/25/20 09:34 Dose: 166.667 mls/hr Documented by: Fentanyl (Sublimaze Ivpb) 500 mcg in 100 mls @ 16.329 mls/hr IVPB TITR [facility]; Protocol Sodium Chloride (Normal Saline -) 1,000 mls @ 125 mls/hr IV ASDIR AMRITA Last Admin: 01/25/20 08:10 Dose: 125 mls/hr Documented by: Mupirocin (Bactroban Ointment (For Decolonization) -) 1 applic NS BID [facility] Stop: 01/30/20 00:14 Last Admin: 01/25/20 09:35 Dose: 1 applic Documented by: Vancomycin HCl (Vancomycin (Pre-Docked)) 1,000 mg IVPB DAILY [facility]; Protocol - Objective Vital Signs: Vital Signs Temperature 98.0 F 01/25/20 06:00 Pulse Rate 90 01/25/20 08:00 Respiratory Rate 24 H 01/25/20 08:03 Blood Pressure 88/61 L 01/25/20 08:00 O2 Sat by Pulse Oximetry (%) 100 01/25/20 08:03 Labs: CBC, BMP 01/25/20 05:35 01/25/20 05:35 INR, PTT INR 1.10 (0.83-1.09) H 01/25/20 05:35
[2020-01-25] MEDS ORDERED: VANCOMYCIN 1 GRAM (PRE-DOCKED) 1,000 MG/250 ML BAG IVPB ONE (10:00)
[2020-01-25] MEDS ORDERED: PIPERACILLIN/TAZOB 3.375 GM 3.375 GM in DEXTROSE 5%-WATER - 50 ML IVPB SCH (10:00)
[2020-01-25] MEDS ORDERED: VANCOMYCIN 1 GM in D5W (PRE-DOCKED) 1,000 MG/250 ML IVPB SCH (10:00)
[2020-01-25] MEDS: PIPERACILLIN/TAZOB 4.5 GM 4.5 GM in DEXTROSE 5%-WATER 100 ML IVPB SCH ×3 (10:54→21:03)
[2020-01-25] MEDS: FENTANYL IVPB 500 MCG/100 ML BAG IVPB SCH (10:55)
[2020-01-25 11:24] LABS: ANISOCYTOSIS 0; MACROCYTOSIS 0; PLATELET ESTIMATE NORMAL
--- NOTE | 2020-01-25 13:20 | HP ---
Admitting History and Physical - Admission History of Present Illness: 4 year old non-verbal male with PMH of Parkinson's disease with Supranuclear palsy with PEG tube placed. Last admission at [facility] was in November for Aspiration PNA. Pt unable to communicate and family not present at bedside. As per ER staff, pt was with AMS earlier today, pt is non verbal at baseline but is able to communicate minimally using hand gestures. EMS was called and pt was found to be hypoxic in the 80s on home oxygen of 2L, which improved to 90s after Ambu bagging. In the ER, he was sedated and intubated, septic workup initiated, and admitted to the ICU. In the ER pt again began to desat, CXR showed massive left sided effusion/infiltrate and chest tube was palced with improvement in SpO2. 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) Cardiovascular: Yes: HTN Pulmonary: Yes: Pneumonia Gastrointestinal: Yes: Gastritis, Other (PEG tube inserted 2017, normal colonoscopy 07/06/13) Renal/: Yes: BPH - Past Surgical History Past Surgical History: Yes: Colonoscopy, Upper Endoscopy - Smoking History Smoking history: Unknown if ever smoked Have you smoked in the past 12 months: No - Alcohol/Substance Use Hx Alcohol Use: No History of Substance Use: reports: None - Social History ADL: Family Assistance History of Recent Travel: No Home Medications - Allergies Allergies/Adverse Reactions: Allergies Allergy/AdvReac Type Severity Reaction Status Date / Time No Known Allergies Allergy Verified 01/24/20 22:44 - Home Medications Home Medications: Ambulatory Orders Doxazosin Mesylate 4 mg GT DAILY 03/09/19 Mirtazapine 15 mg PO DAILY 03/09/19 Carbidopa/Levodopa 25/250 [Sinemet 25/250 -] 1 each PEG QID tablet 03/16/19 Mirabegron [Myrbetriq] 25 mg GT DAILY 12/20/19 Acetaminophen [Tylenol .Regular Strength -] 650 mg PO Q4H PRN tablet 12/29/19 Amino Acids/Protein Hydrolys [Prosource No Carb Liquid Pkt] 30 ml GT BID@0800,1730 #1 bottle 12/29/19 Baclofen [Lioresal -] 10 mg PO TID PRN tablet 12/29/19 Multivitamin 1 each GT DAILY #30 tablet 12/29/19 oxyCODONE HCL [Roxicodone -] 5 mg GT Q6H PRN tablet 12/29/19 Physical Examination Vital Signs: Vital Signs Temperature 98.1 F 01/25/20 10:00 Pulse Rate 93 H 01/25/20 12:00 Respiratory Rate 24 H 01/25/20 12:00 Blood Pressure 95/61 01/25/20 12:00 O2 Sat by Pulse Oximetry (%) 100 01/25/20 11:34 Cardiovascular: Yes: S1, S2 Respiratory: Yes: Mechanically Ventilated Gastrointestinal: Yes: Normal Bowel Sounds, Soft Edema: No Labs: CBC, BMP 01/25/20 05:35 01/25/20 05:35 Problem List - Problems (1) Respiratory failure Code(s): J96.90 - RESPIRATORY FAILURE, UNSP, UNSP W HYPOXIA OR HYPERCAPNIA Qualifiers: Chronicity: acute Respiratory failure complication: hypoxia Qualified Code(s): J96.01 - Acute respiratory failure with hypoxia (2) Pneumonia Assessment/Plan: IV ABX VENT PER ICU ID CONSULT Code(s): J18.9 - PNEUMONIA, UNSPECIFIED ORGANISM Qualifiers: Pneumonia type: due to unspecified organism Laterality: bilateral Lung location: unspecified part of lung Qualified Code(s): J18.9 - Pneumonia, unspecified organism (3) Parkinson disease Code(s): G20 - PARKINSON'S DISEASE (4) Sepsis Assessment/Plan: IV ABX IIVF FOLLOW CULTURES Code(s): A41.9 - SEPSIS, UNSPECIFIED ORGANISM Qualifiers: Acute respiratory failure type: with hypoxia Severe sepsis shock status: without septic shock
--- NOTE | 2020-01-25 13:21 | PN ---
Teaching Attending Note Name of Resident: Errol Franco ATTENDING PHYSICIAN STATEMENT I saw and evaluated the patient. I reviewed the resident's note and discussed the case with the resident. I agree with the resident's findings and plan as documented. SUBJECTIVE: Pt seen and examined in the ICU. Intubated, sedated. No pressors. Fio2 40% PEEP 5. Chest tube with minimal drainage. OBJECTIVE: Vital Signs Period Temp Pulse Resp BP Sys/Villegas Pulse Ox Last 24 Hr 97.1 F-98.1 F 90-109 14-29 80-132/57-72 78-100 Intake & Output 01/22/20 01/23/20 01/24/20 01/25/20 23:59 23:59 23:59 23:59 Intake Total 225 Output Total 300 60 Balance -300 165 Weight 81.647 kg 69.4 kg Gen: intubated, sedated Heart: RRR Lung: scattered rhonchi Abd: soft, nontender Ext: no edema CBC, BMP 01/25/20 05:35 01/25/20 05:35 Active Medications Chlorhexidine Gluconate (Hibiclens For Decolonization -) 1 applic TP HS AMRITA Enoxaparin Sodium (Lovenox -) 40 mg SQ DAILY [facility]ITA Last Admin: 01/25/20 09:35 Dose: 40 mg Documented by: Propofol (Diprivan -) 1,000,000 mcg in 100 mls @ 2.449 mls/hr IVPB TITR [facility]ITA; Protocol Last Titration: 01/25/20 07:24 Dose: 20 mcg/kg/min, 9.798 mls/hr Documented by: Fentanyl (Sublimaze Ivpb) 500 mcg in 100 mls @ 16.329 mls/hr IVPB TITR AMRITA; Protocol Last Admin: 01/25/20 10:55 Dose: 1 mcg/kg/hr, 16.329 mls/hr Documented by: Sodium Chloride (Normal Saline -) 1,000 mls @ 125 mls/hr IV ASDIR AMRITA Last Admin: 01/25/20 08:10 Dose: 125 mls/hr Documented by: Vancomycin HCl (Vancomycin (Pre-Docked)) 1,000 mg in 250 mls @ 166.667 mls/hr IVPB BID AMRITA; Protocol Piperacillin Sod/Tazobactam (Sod 4.5 gm/ Dextrose) 100 mls @ 200 mls/hr IVPB Q6H-IV [facility]; Protocol Last Admin: 01/25/20 10:54 Dose: Not Given Documented by: Mupirocin (Bactroban Ointment (For Decolonization) -) 1 applic NS BID AMRITA Stop: 01/30/20 00:14 Last Admin: 01/25/20 09:35 Dose: 1 applic Documented by: ASSESSMENT AND PLAN: Acute Hypoxic and Hypercapneic Respiratory Failure Pneumonia suspect Aspiration Sepsis Lactic Acidosis r/o [place] Parkinsons Supranuclear Palsy - IV antibiotics - f/u cultures - IVF - monitor urine output, creatinine - cycle cardiac enzymes - trend lactate - titrate Fio2, PEEP to keep Spo2 >90% - DVT prophylaxis - ICU monitoring critical care time spent in reviewing chart, evaluating patient and formulating plan 35 min
[2020-01-25] MEDS: PROPOFOL 1,000,000 MCG/100 ML VIAL IVPB SCH (13:32)
[2020-01-25] MEDS ORDERED: DEXTROSE 5%-WATER 100 ML IVPB ONE ×2 (13:36→20:21)
[2020-01-25] MEDS ORDERED: PIPERACILLIN/TAZOBACTAM 4.5 GM VIAL IVPB ONE ×2 (13:36→20:21)
--- NOTE | 2020-01-25 13:36 | CON.ID ---
Consult Consult Specialty:: infectious diseases Referred by:: pneumonia,resp failure Reason for Consultation:: resp failure - History of Present Illness Chief Complaint: sob History of Present Illness: patient unable to breathe and was brought to the hospital. Patient now intubated and the history obtained from the charts 64 year old non-verbal male with PMH of Parkinson's disease with Supranuclear palsy with PEG tube placed. Last admission at [facility] was in November for Aspiration PNA. It seems pt was with AMS , EMS was called and pt was found to be hypoxic in the 80s on home oxygen of 2L, which improved to 90s after Ambu bagging. In the ER, he was sedated and intubated, septic workup initiated, and admitted to the ICU. In the ER pt again began to desat, CXR showed massive left sided effusion/infiltrate and chest tube was palced with improvement in SpO2. 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) Cardio/Vascular: Yes: HTN Pulmonary: Yes: Pneumonia Gastrointestinal: Yes: Gastritis, Other (PEG tube inserted 2017, normal colonoscopy 07/06/13) Renal/: Yes: BPH - Past Surgical History Past Surgical History: Yes: Colonoscopy, Upper Endoscopy - Alcohol/Substance Use Hx Alcohol Use: No History of Substance Use: reports: None - Smoking History Smoking history: Unknown if ever smoked Have you smoked in the past 12 months: No - Social History Usual Living Arrangement: With Spouse ADL: Family Assistance History of Recent Travel: No Home Medications - Allergies Allergies/Adverse Reactions: Allergies Allergy/AdvReac Type Severity Reaction Status Date / Time No Known Allergies Allergy Verified 01/24/20 22:44 - Home Medications Home Medications: Ambulatory Orders Doxazosin Mesylate 4 mg GT DAILY 03/09/19 Mirtazapine 15 mg PO DAILY 03/09/19 Carbidopa/Levodopa 25/250 [Sinemet 25/250 -] 1 each PEG QID tablet 03/16/19 Mirabegron [Myrbetriq] 25 mg GT DAILY 12/20/19 Acetaminophen [Tylenol .Regular Strength -] 650 mg PO Q4H PRN tablet 12/29/19 Amino Acids/Protein Hydrolys [Prosource No Carb Liquid Pkt] 30 ml GT BID@0800,1730 #1 bottle 12/29/19 Baclofen [Lioresal -] 10 mg PO TID PRN tablet 12/29/19 Multivitamin 1 each GT DAILY #30 tablet 12/29/19 oxyCODONE HCL [Roxicodone -] 5 mg GT Q6H PRN tablet 12/29/19 Review of Systems Unable to obtain ROS, reason: unable to obtain Physical Exam Vital Signs: Vital Signs Temperature 98.1 F 01/25/20 10:00 Pulse Rate 93 H 01/25/20 12:00 Respiratory Rate 24 H 01/25/20 12:00 Blood Pressure 95/62 01/25/20 13:00 O2 Sat by Pulse Oximetry (%) 100 01/25/20 11:34 Constitutional: Yes: Other HENT: Yes: Atraumatic, Normocephalic Neck: Yes: Supple, Trachea Midline Cardiovascular: Yes: Regular Rate and Rhythm Respiratory: Yes: Intubated, Mechanically Ventilated, Other (left sided chest tube in place) Gastrointestinal: Yes: Normal Bowel Sounds, Soft Renal/: Yes: Merchant Present Musculoskeletal: Yes: WNL Extremities: Yes: WNL Labs: CBC, BMP 01/25/20 05:35 01/25/20 05:35 Imaging - Results Chest X-ray: Report Reviewed, Image Reviewed Cat Scan: Report Reviewed, Image Reviewed Assessment/Plan this patient with multiple medical issues coming in with ams and resp failure and now intubated Acute Hypoxic and Hypercapneic Respiratory Failure Pneumonia suspect Aspiration Sepsis Lactic Acidosis Parkinsons Supranuclear Palsy plan continue icu care iv abx await for all cx reports vent mgmt close watch cc 40 min
[2020-01-25] MEDS ORDERED: ACETYLCYSTEINE 20% 200MG/ML 4 ML VIAL *FOR ORAL / INH USE ONLY PO SCH (16:00)
--- NOTE | 2020-01-25 16:53 | PN ---
Physical Exam: SUBJECTIVE: Patient seen and examined. 90 mL serosanguineous fluid draining from chest tube overnight. OBJECTIVE: Vital Signs Period Temp Pulse Resp BP Sys/Villegas Pulse Ox Last 24 Hr 97.1 F-98.4 F 88-109 14-29 80-132/49-72 78-100 GENERAL: Intubated and sedated HEENT: NC,AT, PERRL LUNGS: Breath sounds equal, clear to auscultation bilaterally, no wheezes, no crackles, no accessory muscle use. decreased breath sounds bases b/l HEART: Regular rate and rhythm, S1, S2 without murmur, rub or gallop. ABDOMEN: Soft, nontender, nondistended, normoactive bowel sounds, no guarding, PEG tube in RUQ EXTREMITIES: 2+ pulses, warm, well-perfused, no edema. SKIN: Warm, dry, stage II ulcer on L buttock, no erythema, no discharge Laboratory Results - last 24 hr 01/24/20 01/24/20 01/24/20 22:55 23:05 23:05 WBC 7.7 RBC 4.19 Hgb 12.9 Hct 39.4 MCV 94.1 MCH 30.9 MCHC 32.8 RDW 15.8 D Plt Count 219 D MPV 8.8 Absolute Neuts (auto) 6.7 Neutrophils % 87.5 H Neutrophils % (Manual) Band Neutrophils % Lymphocytes % 6.2 L D Lymphocytes % (Manual) Monocytes % 6.2 Monocytes % (Manual) Eosinophils % 0.0 D Eosinophils % (Manual) Basophils % 0.1 Basophils % (Manual) Myelocytes % (Man) Promyelocytes % (Man) Blast Cells % (Manual) Nucleated RBC % 0 Metamyelocytes Hypochromia Platelet Estimate Polychromasia Poikilocytosis Anisocytosis Microcytosis Macrocytosis PT with INR INR PTT (Actin FS) Anticoagulation Therapy No Result Required. Puncture Site Right radial Patient Temperature No Result Required. ABG pH 7.219 L ABG pCO2 91.80 H* ABG pO2 121.8 H ABG HCO3 36.6 H ABG O2 Sat (Measured) 97.5 ABG O2 Content No Result Required. ABG Base Excess 4.3 H Darion Test Positive Patient On Oxygen Yes O2 Delivery Device Ventilator Oxygen Flow Rate 100 Vent Mode Vol-ac Vent Rate 14 Mechanical Rate No Result Required. PEEP 5.0 Pressure Support Vent 400 Sodium 139 Potassium 4.3 Chloride 98 Carbon Dioxide 37 H Anion Gap 4 L BUN 25.8 H Creatinine 0.5 L Est GFR (CKD-EPI)AfAm 130.88 Est GFR (CKD-EPI)NonAf 112.92 Random Glucose 168 H Lactic Acid Calcium 8.9 Phosphorus Magnesium Total Bilirubin 0.5 AST 13 L ALT 6 L Alkaline Phosphatase 84 Creatine Kinase Troponin I Total Protein 6.8 Albumin 2.7 L Urine Color Urine Appearance Urine pH Ur Specific Prospect Urine Protein Urine Glucose (UA) Urine Ketones Urine Blood Urine Nitrite Urine Bilirubin Urine Urobilinogen Ur Leukocyte Esterase Urine WBC (Auto) Urine RBC (Auto) Urine Casts (Auto) U Epithel Cells (Auto) Urine Bacteria (Auto) 01/24/20 01/24/20 01/25/20 23:05 23:15 01:40 WBC RBC Hgb Hct MCV MCH MCHC RDW Plt Count MPV Absolute Neuts (auto) Neutrophils % Neutrophils % (Manual) Band Neutrophils % Lymphocytes % Lymphocytes % (Manual) Monocytes % Monocytes % (Manual) Eosinophils % Eosinophils % (Manual) Basophils % Basophils % (Manual) Myelocytes % (Man) Promyelocytes % (Man) Blast Cells % (Manual) Nucleated RBC % Metamyelocytes Hypochromia Platelet Estimate Polychromasia Poikilocytosis Anisocytosis Microcytosis Macrocytosis PT with INR 13.60 H INR 1.15 H PTT (Actin FS) 33.1 Anticoagulation Therapy No Result Required. Puncture Site Right radial Patient Temperature No Result Required. ABG pH 7.336 L ABG pCO2 67.90 H ABG pO2 40.0 L ABG HCO3 35.5 H ABG O2 Sat (Measured) 69.7 L ABG O2 Content No Result Required. ABG Base Excess 7.2 H Darion Test Positive Patient On Oxygen Yes O2 Delivery Device Vent Oxygen Flow Rate 100% Vent Mode A/c Vent Rate 24 Mechanical Rate No Result Required. PEEP 12.0 Pressure Support Vent 420 Sodium Potassium Chloride Carbon Dioxide Anion Gap BUN Creatinine Est GFR (CKD-EPI)AfAm Est GFR (CKD-EPI)NonAf Random Glucose Lactic Acid Calcium Phosphorus Magnesium Total Bilirubin AST ALT Alkaline Phosphatase Creatine Kinase Troponin I Total Protein Albumin Urine Color Yellow Urine Appearance Clear Urine pH 5.5 D Ur Specific Prospect 1.029 Urine Protein 1+ H Urine Glucose (UA) Negative Urine Ketones Trace H Urine Blood Negative Urine Nitrite Negative Urine Bilirubin Negative Urine Urobilinogen 0.2 Ur Leukocyte Esterase Negative Urine WBC (Auto) 3 Urine RBC (Auto) 35 Urine Casts (Auto) 2 U Epithel Cells (Auto) 12 Urine Bacteria (Auto) 3 01/25/20 01/25/20 01/25/20 05:35 05:35 05:35 WBC 10.5 H RBC 4.26 Hgb 13.0 Hct 40.6 MCV 95.4 MCH 30.6 MCHC 32.0 RDW 15.8 Plt Count 207 MPV 9.2 Absolute Neuts (auto) 9.4 H Neutrophils % 89.9 H Neutrophils % (Manual) 68.0 Band Neutrophils % 21.4 Lymphocytes % 3.6 L D Lymphocytes % (Manual) 1.9 L Monocytes % 6.3 Monocytes % (Manual) 5 Eosinophils % 0.1 D Eosinophils % (Manual) 0.0 Basophils % 0.1 Basophils % (Manual) 1.0 Myelocytes % (Man) 0 Promyelocytes % (Man) 0 Blast Cells % (Manual) 0 Nucleated RBC % 0 Metamyelocytes 3 H Hypochromia 0 Platelet Estimate Normal Polychromasia 0 Poikilocytosis 0 Anisocytosis 0 Microcytosis 0 Macrocytosis 0 PT with INR 13.00 INR 1.10 H PTT (Actin FS) Anticoagulation Therapy Puncture Site Patient Temperature ABG pH ABG pCO2 ABG pO2 ABG HCO3 ABG O2 Sat (Measured) ABG O2 Content ABG Base Excess Darion Test Patient On Oxygen O2 Delivery Device Oxygen Flow Rate Vent Mode Vent Rate Mechanical Rate PEEP Pressure Support Vent Sodium 140 Potassium 4.5 Chloride 99 Carbon Dioxide 33 H Anion Gap 8 BUN 24.4 H Creatinine 0.5 L Est GFR (CKD-EPI)AfAm 130.88 Est GFR (CKD-EPI)NonAf 112.92 Random Glucose 89 Lactic Acid Calcium 8.6 Phosphorus 4.0 Magnesium 3.0 H Total Bilirubin 1.0 AST 21 ALT 12 L Alkaline Phosphatase 76 Creatine Kinase Troponin I Total Protein 6.3 L Albumin 2.5 L Urine Color Urine Appearance Urine pH Ur Specific Prospect Urine Protein Urine Glucose (UA) Urine Ketones Urine Blood Urine Nitrite Urine Bilirubin Urine Urobilinogen Ur Leukocyte Esterase Urine WBC (Auto) Urine RBC (Auto) Urine Casts (Auto) U Epithel Cells (Auto) Urine Bacteria (Auto) 01/25/20 01/25/20 05:35 13:09 WBC RBC Hgb Hct MCV MCH MCHC RDW Plt Count MPV Absolute Neuts (auto) Neutrophils % Neutrophils % (Manual) Band Neutrophils % Lymphocytes % Lymphocytes % (Manual) Monocytes % Monocytes % (Manual) Eosinophils % Eosinophils % (Manual) Basophils % Basophils % (Manual) Myelocytes % (Man) Promyelocytes % (Man) Blast Cells % (Manual) Nucleated RBC % Metamyelocytes Hypochromia Platelet Estimate Polychromasia Poikilocytosis Anisocytosis Microcytosis Macrocytosis PT with INR INR PTT (Actin FS) Anticoagulation Therapy Puncture Site Patient Temperature ABG pH ABG pCO2 ABG pO2 ABG HCO3 ABG O2 Sat (Measured) ABG O2 Content ABG Base Excess Darion Test Patient On Oxygen O2 Delivery Device Oxygen Flow Rate Vent Mode Vent Rate Mechanical Rate PEEP Pressure Support Vent Sodium Potassium Chloride Carbon Dioxide Anion Gap BUN Creatinine Est GFR (CKD-EPI)AfAm Est GFR (CKD-EPI)NonAf Random Glucose Lactic Acid 3.7 H* Calcium Phosphorus Magnesium Total Bilirubin AST ALT Alkaline Phosphatase Creatine Kinase 41 Troponin I < 0.02 Total Protein Albumin Urine Color Urine Appearance Urine pH Ur Specific Prospect Urine Protein Urine Glucose (UA) Urine Ketones Urine Blood Urine Nitrite Urine Bilirubin Urine Urobilinogen Ur Leukocyte Esterase Urine WBC (Auto) Urine RBC (Auto) Urine Casts (Auto) U Epithel Cells (Auto) Urine Bacteria (Auto) Active Medications Generic Name Dose Route Start Last Admin Trade Name Freq PRN Reason Stop Dose Admin Chlorhexidine Gluconate 1 applic 01/25/20 22:00 Hibiclens For Decolonization - TP HS AMRITA Enoxaparin Sodium 40 mg 01/25/20 10:00 01/25/20 09:35 Lovenox - SQ 40 mg DAILY AMRITA Administration Propofol 1,000,000 mcg in 100 mls @ 2.449 mls/hr 01/24/20 22:45 01/25/20 13:32 Diprivan - IVPB 20 mcg/kg/min TITR AMRITA 9.798 mls/hr Administration Protocol 5 MCG/KG/MIN Fentanyl 500 mcg in 100 mls @ 16.329 mls/hr 01/25/20 05:00 01/25/20 10:55 Sublimaze Ivpb IVPB 1 mcg/kg/hr TITR AMRITA 16.329 mls/hr Administration Protocol 1 MCG/KG/HR Sodium Chloride 1,000 mls @ 125 mls/hr 01/25/20 08:07 01/25/20 08:10 Normal Saline - IV 125 mls/hr ASDIR AMRITA Administration Vancomycin HCl 1,000 mg in 250 mls @ 166.667 mls/hr 01/25/20 22:00 Vancomycin (Pre-Docked) IVPB BID AMRITA Protocol Piperacillin Sod/Tazobactam 100 mls @ 200 mls/hr 01/25/20 10:27 01/25/20 14:00 Sod 4.5 gm/ Dextrose IVPB 200 mls/hr Q6H-IV AMRITA Administration Protocol Mupirocin 1 applic 01/25/20 00:15 01/25/20 09:35 Bactroban Ointment (For Decolonization) - NS 01/30/20 00:14 1 applic BID AMRITA Administration ASSESSMENT/PLAN: 64 YO M PMH HTN, BPH, Parkinson's disease with Supranuclear palsy (with PEG tube in RUQ). Found to have PNA. Admitted to ICU for Acute hypoxic, hypercapnic respiratory failure 2/2 PNA. #Neuro - CT Head: no acute findings. Paranasal sinus fluid (mild b/l ethmoid,sphenoid, minimal to mild b/l maxillary sinus fluid accumulation [sinusitis VS secondary to intubation) -intubated and sedated with propofol and midazolam -Parkinson's disease. Family requested Dr. Bashir as neurologist. Follow-up neurology consult -will resume home meds once verified with pharmacy. Called pharmacy, unable to reach pharmacist #Pulm # Acute hypoxic, hypercapnic respiratory failure 2/2 PNA -CXR (admission): Left infiltrate w/ fluid or atelectasis on the Left base, mediastinal shift to the left, slight scoliois with arthritic changes -CT chest: Trace L sided pneumothorax. L lower lobe atelectasis with resultant Leftward mediastinal deviation. Small L upper lobe as well as very small right upper and right lower lobe infiltrates. Very small pericardial effusion. mildly enlarged mediastinal lymph nodes, on a reactive basis -Chest tube was performed in ED due to suspicion of effusion. Imaging on Chest CT shows a collapsed Left lower lobe and the mediastinal shift to the left with findings on the Left base are indicative of atelectasis. 90 mL serosauineous fluid draining from chest tube overnight. -Vent AC: PEEP 12 decreased to 8, FiO2 100 decreased to 70, TV 420, rate 22. Pplateau 24. -ABG: Resp Acidosis with metabolic compensation: pH 7.336, pCO2 67.9, HCO3 35.5. #Cardio #HTN: hypotensive. will hold home medications affecting BP. maintain MAP >65. continue with NS@125 ml/hr #ST elevation on EKG EKG: Sinus tachycardia. Left axis deviation. Right bundle branch block. ST elevation. 101 bpm, QTC 464 -Trop <0.02. F/u repeat trop -lactic acid 3.7. F/u repeat lactic acid #ID -CXR: Left infiltrate; WBCs increased to 10.5 -ID consult appreciated. c/w vanc 1 gm IVPB BID & zosyn 4.5 g IVPB Q6H - Previous (12/19) sputum cx positive for Pseudomonas sensitive to Zosyn, resistant to Meropenem - Follow-up on Blood, sputum, urine cultures #Renal - BUN/Cr 24.4/0.5 today - UA 1+ Protein with trace ketones -2012 mL I's/460 ml O's/1552 balance # #BPH: -will resume home meds once verified with pharmacy. Called pharmacy, unable to reach pharmacist - Mensah in place #FEN -NS @125 ml/hr -monitor lytes -production quality analyst consult order placed. will f/u production quality analyst consult and implement once patient is stable #DVT PPX Lovenox 40 mg SQ #Lines Left chest tube (01/24) mensah (01/23) ETT (01/24) RUQ peg (patient presented to ED with it) #Dispo -maintain ICU ATTENDING PHYSICIAN STATEMENT I saw and evaluated the patient. I reviewed the resident's note and discussed the case with the resident. I agree with the resident's findings and plan as documented. SUBJECTIVE: OBJECTIVE: ASSESSMENT AND PLAN:
--- NOTE | 2020-01-25 18:11 | CON.NEURO ---
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 (with 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) Cardio/Vascular: Yes: HTN Pulmonary: Yes: Pneumonia Gastrointestinal: Yes: Gastritis, Other (PEG tube inserted 2017, normal colonoscopy 07/06/13) Renal/: Yes: BPH - Past Surgical History Past Surgical History: Yes: Colonoscopy, Upper Endoscopy - Alcohol/Substance Use Hx Alcohol Use: No History of Substance Use: reports: None - Smoking History Smoking history: Unknown if ever smoked Have you smoked in the past 12 months: No - Social History Usual Living Arrangement: With Spouse ADL: Family Assistance History of Recent Travel: No Home Medications - Allergies Allergies/Adverse Reactions: Allergies Allergy/AdvReac Type Severity Reaction Status Date / Time No Known Allergies Allergy Verified 01/24/20 22:44 - Home Medications Home Medications: Ambulatory Orders Doxazosin Mesylate 4 mg PO DAILY 03/09/19 Mirtazapine 30 mg PO DAILY 03/09/19 Acetaminophen [Tylenol .Regular Strength -] 650 mg PO Q4H PRN tablet 12/29/19 Baclofen [Lioresal -] 10 mg PO TID PRN tablet 12/29/19 Multivitamin 1 each GT DAILY #30 tablet 12/29/19 Carbidopa/Levodopa 25/250 [Sinemet 25/250 -] 1 each PO QID 01/25/20 Family Medical History Family History: Unable to Obtain Physical Exam-Neuro Vital Signs: Vital Signs Temperature 98.4 F 01/25/20 13:41 Pulse Rate 88 01/25/20 16:00 Respiratory Rate 24 H 01/25/20 16:00 Blood Pressure 105/62 01/25/20 16:00 O2 Sat by Pulse Oximetry (%) 100 01/25/20 11:34 Labs: CBC, BMP 01/25/20 05:35 01/25/20 05:35 INR, PTT INR 1.10 (0.83-1.09) H 01/25/20 05:35 - Neuro Exam Eyes: Yes: PERRLA Speech: Garbled Cranial Nerves II-XII Intact: No Gag: Absent DTR's: 1+ Left Bicep, 1+ Right Bicep, 1+ Left Tricep, 1+ Right Tricep Response to light touch: Normal Response to pain prick: Normal Response to temperature: Normal Motor Strength: 3/5: Left Arm (unabe to assess ) Gait: Deferred Imaging - Results Cat Scan: Image Reviewed Problem List - Problems (1) Parkinson disease Code(s): G20 - PARKINSON'S DISEASE Assessment/Plan TOXIC METABOLIC ENCEPHALOPATHY PROGRESSIVE SUPRANUCLEAR PALSY PNEUMONIA 1. Chest PT 2. No evidence of CVA 3. Poor prognosis 4. Hold off carjbidopa 5. Follow up with ID Thanks Mago Bashir MD
[2020-01-25] MEDS ORDERED: INSULIN (NOVOLOG) ASPART 100 UNITS/ML 10ML VIAL ONE (20:22)
[2020-01-25] MEDS ORDERED: ACETAMINOPHEN 1000 MG/100 ML VIAL (NON FORMULARY) IVPB PRN (20:54)
[2020-01-25] MEDS ORDERED: ACETYLCYSTEINE 20% 200MG/ML 30 ML VIAL *FOR ORAL / INH USE ONLY PO SCH (21:00)
[2020-01-25] MEDS ORDERED: ALBUTEROL SO4 0.083% IH SOL 2.5 MG/3 ML VIAL.NEB. NEB ONE (21:01)
[2020-01-25] MEDS ORDERED: ACETYLCYSTEINE 20% 200MG/ML 4 ML VIAL *FOR ORAL / INH USE ONLY ONE (21:01)
[2020-01-25] MEDS: CHLORHEXIDINE GLUCONATE 4% CLEANSER FOR DECOLONIZATION TP SCH (21:03)
[2020-01-25] MEDS: VANCOMYCIN 1 GRAM (PRE-DOCKED) 1,000 MG/250 ML BAG IVPB SCH (21:04)
[2020-01-26] MEDS ORDERED: PIPERACILLIN/TAZOBACTAM 4.5 GM VIAL IVPB ONE ×4 (00:32→20:06)
[2020-01-26] MEDS ORDERED: DEXTROSE 5%-WATER 100 ML IVPB ONE ×4 (00:32→20:06)
[2020-01-26] MEDS: PIPERACILLIN/TAZOB 4.5 GM 4.5 GM in DEXTROSE 5%-WATER 100 ML IVPB SCH ×4 (02:48→20:35)
[2020-01-26] MEDS: FENTANYL IVPB 500 MCG/100 ML BAG IVPB SCH ×4 (05:33→20:39)
[2020-01-26] MEDS: PROPOFOL 1,000,000 MCG/100 ML VIAL IVPB SCH ×2 (05:33→09:31)
[2020-01-26 06:58] LABS: BASO % 0.5 % (0-2.0); HEMATOCRIT 35.1 % (35.4-49); HEMOGLOBIN 11.6 GM/dL (11.7-16.9); LYMPH % 13.5 % (8-40); MCH 30.8 pg (25.7-33.7); MCHC 32.9 g/dl (32.0-35.9); MEAN CELL VOLUME 93.7 fl (80-96); MEAN PLT VOLUME 9.1 fl (7.5-11.1); MONO % 9.4 % (3.8-10.2); NEUT % 75.6 % (42.8-82.8); PLATELET COUNT 207 K/MM3 (134-434); RBC 3.75 M/mm3 (4.00-5.60); WHITE BLOOD COUNT 7.3 K/mm3 (4.0-10.0)
[2020-01-26 07:22] LABS: ARTERIAL BLD GAS O2 SATURATION 97.8 mmHg (95-98); ARTERIAL BLOOD GAS BASE EXCESS 4.6 mmol/L (-2-2); ARTERIAL BLOOD GAS PO2 101.6 mmHg (80-100); ARTERIAL BLOOD GAS pH 7.446 (7.350-7.450)
[2020-01-26 07:38] LABS: ALLENS TEST POSITIVE
[2020-01-26 07:39] LABS: VENT MODE A/C; VENT RATE 24
[2020-01-26 08:16] LABS: ALBUMIN 1.9 g/dl (3.4-5.0); BILIRUBIN,TOTAL 1.2 mg/dL (0.2-1); BLOOD UREA NITROGEN 20.8 mg/dL (7-18); CALCIUM 7.8 mg/dL (8.5-10.1); CREATININE 0.7 mg/dL (0.55-1.3); MAGNESIUM 2.2 mg/dL (1.8-2.4); PHOSPHOROUS 3.4 mg/dL (2.5-4.9); POTASSIUM 3.8 mmol/L (3.5-5.1); TOT PROT 5.1 g/dl (6.4-8.2)
[2020-01-26] MEDS ORDERED: DEXTROSE 50%-WATER - 25 GM/50 ML VIAL IVPUSH ONE ×2 (08:58→23:16)
[2020-01-26] MEDS ORDERED: DEXTROSE 50%-WATER 25 GM/50 ML DISP.SYRIN ONE (09:24)
[2020-01-26] MEDS: VANCOMYCIN 1 GRAM (PRE-DOCKED) 1,000 MG/250 ML BAG IVPB SCH ×2 (09:27→22:08)
[2020-01-26] MEDS: ENOXAPARIN NA (PORCINE) 40 MG/0.4 ML DISP.SYRIN SQ SCH (09:27)
[2020-01-26] MEDS: MUPIROCIN 2% TOPICAL OINTMENT FOR DECOLONIZATION NS SCH ×4 (09:27→22:07)
--- NOTE | 2020-01-26 10:28 | CON.CARD ---
Consult Consult Specialty:: Cardiology Referred by:: Chay Reason for Consultation:: Respiratory failure - History of Present Illness Chief Complaint: Shortness of breath. Lethargy History of Present Illness: The patient is a 64-year-old man, with Parkinson's disease, 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, PEG, nonverbal, aspiration pneumonia, normal left ventricular systolic function on echocardiogram 12/27/2019 now admitted with respiratory failure, intubated, possibly aspiration pneumonia. The patient is in sinus rhythm. He has a right bundle branch block. Possibly lateral ST elevations. 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) Cardio/Vascular: Yes: HTN Pulmonary: Yes: Pneumonia Gastrointestinal: Yes: Gastritis, Other (PEG tube inserted 2017, normal colonoscopy 07/06/13) Renal/: Yes: BPH - Past Surgical History Past Surgical History: Yes: Colonoscopy, Upper Endoscopy - Alcohol/Substance Use Hx Alcohol Use: No History of Substance Use: reports: None - Smoking History Smoking history: Unknown if ever smoked Have you smoked in the past 12 months: No - Social History Usual Living Arrangement: With Spouse ADL: Family Assistance History of Recent Travel: No Home Medications - Allergies Allergies/Adverse Reactions: Allergies Allergy/AdvReac Type Severity Reaction Status Date / Time No Known Allergies Allergy Verified 01/24/20 22:44 - Home Medications Home Medications: Ambulatory Orders Doxazosin Mesylate 4 mg PO DAILY 03/09/19 Mirtazapine 30 mg PO DAILY 03/09/19 Acetaminophen [Tylenol .Regular Strength -] 650 mg PO Q4H PRN tablet 12/29/19 Baclofen [Lioresal -] 10 mg PO TID PRN tablet 12/29/19 Multivitamin 1 each GT DAILY #30 tablet 12/29/19 Carbidopa/Levodopa 25/250 [Sinemet 25/250 -] 1 each PO QID 01/25/20 Family Medical History Family History: Unable to Obtain Review of Systems - Review of Systems Constitutional: reports: No Symptoms Eyes: reports: No Symptoms HENT: reports: No Symptoms Neck: reports: No Symptoms Cardiovascular: reports: Shortness of Breath Respiratory: reports: No Symptoms Gastrointestinal: reports: No Symptoms Genitourinary: reports: No Symptoms Breasts: reports: No Symptoms Reported Musculoskeletal: reports: No Symptoms Integumentary: reports: No Symptoms Neurological: reports: Weakness Endocrine: reports: No Symptoms Hematology/Lymphatic: reports: No Symptoms Psychiatric: reports: No Symptoms Vital Signs: Vital Signs Temperature 98.5 F 01/26/20 10:00 Pulse Rate 74 01/26/20 10:00 Respiratory Rate 24 H 01/26/20 10:00 Blood Pressure 110/66 01/26/20 10:00 O2 Sat by Pulse Oximetry (%) 100 01/26/20 10:00 Constitutional: Yes: Ashen, Cachectic, Pallor Eyes: Yes: Conjunctiva Clear HENT: Yes: Atraumatic, Normocephalic Neck: Yes: Trachea Midline Respiratory: Yes: Mechanically Ventilated Gastrointestinal: Yes: Normal Bowel Sounds, Soft Renal/: Yes: WNL Cardiovascular: Yes: Regular Rate and Rhythm JVD: No Carotid Bruit: No PMI: Non-Displaced Murmur: Yes: Systolic Murmur, Grade 2 Edema: No Peripheral Pulses: 1+ Left Doralis Pedis, 1+ Right Dorsalis Pedis - Other Data Labs, Other Data: CBC, BMP 01/26/20 05:55 01/26/20 05:55 INR, PTT INR 1.10 (0.83-1.09) H 01/25/20 05:35 Troponin, BNP 01/25/20 01/25/20 13:09 19:00 Troponin I < 0.02 < 0.02 Troponin, BNP 01/25/20 01/25/20 13:09 19:00 Troponin I < 0.02 < 0.02 Assessment/Plan The patient is a 64-year-old man, with Parkinson's disease, 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, PEG, nonverbal, aspiration pneumonia, normal left ventricular systolic function on echocardiogram 12/27/2019 now admitted with respiratory failure, intubated, possibly aspiration pneumonia. The patient is in sinus rhythm. He has a right bundle branch block. Possibly lateral ST elevations. There is no need for further cardiac work-up nor testing in this setting. Continue respiratory support and respiratory toilet as possible. Conservative cardiac care. Please do not hesitate to call us PRN.
--- NOTE | 2020-01-26 12:31 | PN ---
Progress Note, Physician History of Present Illness: doing the same Intubated no events Seen by cardiology WBC noted Still critical - Current Medication List Current Medications: Active Medications Acetaminophen (Ofirmev Injection -) 1,000 mg IVPB Q6H PRN PRN Reason: FEVER Stop: 01/26/20 20:54 Last Admin: 01/25/20 21:34 Dose: 1,000 mg Documented by: Acetylcysteine (Mucomyst 20 Oral / Inh Use Only*) 200 mg PO Q4H AMRITA Albuterol Sulfate (Ventolin 0.5% -) 1 amp NEB Q4H PRN PRN Reason: SHORT OF BREATH/WHEEZING Chlorhexidine Gluconate (Hibiclens For Decolonization -) 1 applic TP HS AMRITA Last Admin: 01/25/20 21:03 Dose: 1 applic Documented by: Enoxaparin Sodium (Lovenox -) 40 mg SQ DAILY AMRITA Last Admin: 01/26/20 09:27 Dose: 40 mg Documented by: Propofol (Diprivan -) 1,000,000 mcg in 100 mls @ 2.449 mls/hr IVPB TITR AMRITA; Protocol Last Admin: 01/26/20 09:31 Dose: 50 mcg/kg/min, 24.494 mls/hr Documented by: Fentanyl (Sublimaze Ivpb) 500 mcg in 100 mls @ 16.329 mls/hr IVPB TITR AMRITA; Protocol Last Admin: 01/26/20 08:23 Dose: 1.22 mcg/kg/hr, 20 mls/hr Documented by: Sodium Chloride (Normal Saline -) 1,000 mls @ 125 mls/hr IV ASDIR AMRITA Last Admin: 01/25/20 08:10 Dose: 125 mls/hr Documented by: Vancomycin HCl (Vancomycin (Pre-Docked)) 1,000 mg in 250 mls @ 166.667 mls/hr IVPB BID AMRITA; Protocol Last Admin: 01/26/20 09:27 Dose: 166.667 mls/hr Documented by: Piperacillin Sod/Tazobactam (Sod 4.5 gm/ Dextrose) 100 mls @ 200 mls/hr IVPB Q6H-IV AMRITA; Protocol Last Admin: 01/26/20 09:26 Dose: 200 mls/hr Documented by: Mupirocin (Bactroban Ointment (For Decolonization) -) 1 applic NS BID AMRITA Stop: 01/30/20 00:14 Last Admin: 01/26/20 09:27 Dose: 1 applic Documented by: - Objective Vital Signs: Vital Signs Temperature 98.5 F 01/26/20 10:00 Pulse Rate 88 01/26/20 12:00 Respiratory Rate 17 01/26/20 12:00 Blood Pressure 118/72 01/26/20 12:00 O2 Sat by Pulse Oximetry (%) 98 01/26/20 12:00 Constitutional: Yes: Well Nourished Eyes: Yes: WNL HENT: Yes: WNL Neurological: Yes: Alert, Oriented, Babinski positive, Other Labs: CBC, BMP 01/26/20 05:55 01/26/20 05:55 INR, PTT INR 1.10 (0.83-1.09) H 01/25/20 05:35 Problem List - Problems (1) Parkinson disease Assessment/Plan: DVT prophylaxis Chest PT Follow up with ID Code(s): G20 - PARKINSON'S DISEASE
[2020-01-26] MEDS: SODIUM CHLORIDE 1,000 ML IV SCH (13:37)
--- NOTE | 2020-01-26 13:49 | PN ---
Teaching Attending Note Name of Resident: Terry Nash ATTENDING PHYSICIAN STATEMENT I saw and evaluated the patient. I reviewed the resident's note and discussed the case with the resident. I agree with the resident's findings and plan as documented. SUBJECTIVE: Pt seen and examined in the ICU. Intubated, sedated. No pressors. Fio2 40% PEEP 5. Chest tube with minimal drainage. Placed on CPAP/PS with good respiratory effort and RSBI but with copious secretions. OBJECTIVE: Vital Signs Period Temp Pulse Resp BP Sys/Villegas Pulse Ox Last 24 Hr 98.5 F-101.6 F 68-105 14-24 95-118/59-74 95-100 Gen: intubated, sedated Heart: RRR Lung: scattered rhonchi Abd: soft, nontender Ext: no edema CBC, BMP 01/26/20 05:55 01/26/20 05:55 Active Medications Acetaminophen (Ofirmev Injection -) 1,000 mg IVPB Q6H PRN PRN Reason: FEVER Stop: 01/26/20 20:54 Last Admin: 01/25/20 21:34 Dose: 1,000 mg Documented by: Acetylcysteine (Mucomyst 20 Oral / Inh Use Only*) 200 mg PO RQ4H AMRITA Albuterol Sulfate (Ventolin 0.5% -) 1 amp NEB Q4H PRN PRN Reason: SHORT OF BREATH/WHEEZING Chlorhexidine Gluconate (Hibiclens For Decolonization -) 1 applic TP HS [facility] Last Admin: 01/25/20 21:03 Dose: 1 applic Documented by: Enoxaparin Sodium (Lovenox -) 40 mg SQ DAILY AMRITA Last Admin: 01/26/20 09:27 Dose: 40 mg Documented by: Propofol (Diprivan -) 1,000,000 mcg in 100 mls @ 2.449 mls/hr IVPB TITR AMRITA; Protocol Last Admin: 01/26/20 09:31 Dose: 50 mcg/kg/min, 24.494 mls/hr Documented by: Fentanyl (Sublimaze Ivpb) 500 mcg in 100 mls @ 16.329 mls/hr IVPB TITR AMRITA; Protocol Last Admin: 01/26/20 13:38 Dose: 1.22 mcg/kg/hr, 20 mls/hr Documented by: Sodium Chloride (Normal Saline -) 1,000 mls @ 125 mls/hr IV ASDIR AMRITA Last Admin: 01/26/20 13:37 Dose: 125 mls/hr Documented by: Vancomycin HCl (Vancomycin (Pre-Docked)) 1,000 mg in 250 mls @ 166.667 mls/hr IVPB BID AMRITA; Protocol Last Admin: 01/26/20 09:27 Dose: 166.667 mls/hr Documented by: Piperacillin Sod/Tazobactam (Sod 4.5 gm/ Dextrose) 100 mls @ 200 mls/hr IVPB Q6H-IV AMRITA; Protocol Last Admin: 01/26/20 09:26 Dose: 200 mls/hr Documented by: Mupirocin (Bactroban Ointment (For Decolonization) -) 1 applic NS BID AMRITA Stop: 01/30/20 00:14 Last Admin: 01/26/20 09:27 Dose: 1 applic Documented by: ASSESSMENT AND PLAN: Acute Hypoxic and Hypercapneic Respiratory Failure Pneumonia suspect Aspiration Sepsis Lactic Acidosis r/o KS Parkinsons Supranuclear Palsy - continue antibiotics - f/u cultures - IVF - monitor urine output, creatinine - titrate Fio2, PEEP to keep Spo2 >90% - spontaneous breathing trials as tolerated but would not extubate until secretions less - start enteral feeds - DVT/GI prophylaxis - ICU monitoring critical care time spent in reviewing chart, evaluating patient and formulating plan 35 min
--- NOTE | 2020-01-26 14:29 | PN ---
Progress Note, Physician History of Present Illness: continues to be intubated,sedated minimal vent setting minimal drainage thro the chest tube - Current Medication List Current Medications: Active Medications Acetaminophen (Ofirmev Injection -) 1,000 mg IVPB Q6H PRN PRN Reason: FEVER Stop: 01/26/20 20:54 Last Admin: 01/25/20 21:34 Dose: 1,000 mg Documented by: Acetylcysteine (Mucomyst 20 Oral / Inh Use Only*) 200 mg PO RQ4H [facility] Albuterol Sulfate (Ventolin 0.5% -) 1 amp NEB Q4H PRN PRN Reason: SHORT OF BREATH/WHEEZING Chlorhexidine Gluconate (Hibiclens For Decolonization -) 1 applic TP HS [facility] Last Admin: 01/25/20 21:03 Dose: 1 applic Documented by: Enoxaparin Sodium (Lovenox -) 40 mg SQ DAILY [facility] Last Admin: 01/26/20 09:27 Dose: 40 mg Documented by: Propofol (Diprivan -) 1,000,000 mcg in 100 mls @ 2.449 mls/hr IVPB TITR [facility]; Protocol Last Admin: 01/26/20 09:31 Dose: 50 mcg/kg/min, 24.494 mls/hr Documented by: Fentanyl (Sublimaze Ivpb) 500 mcg in 100 mls @ 16.329 mls/hr IVPB TITR [facility]; Protocol Last Admin: 01/26/20 13:38 Dose: 1.22 mcg/kg/hr, 20 mls/hr Documented by: Sodium Chloride (Normal Saline -) 1,000 mls @ 125 mls/hr IV ASDIR [facility] Last Admin: 01/26/20 13:37 Dose: 125 mls/hr Documented by: Vancomycin HCl (Vancomycin (Pre-Docked)) 1,000 mg in 250 mls @ 166.667 mls/hr IVPB BID [facility]; Protocol Last Admin: 01/26/20 09:27 Dose: 166.667 mls/hr Documented by: Piperacillin Sod/Tazobactam (Sod 4.5 gm/ Dextrose) 100 mls @ 200 mls/hr IVPB Q6H-IV [facility]; Protocol Last Admin: 01/26/20 09:26 Dose: 200 mls/hr Documented by: Mupirocin (Bactroban Ointment (For Decolonization) -) 1 applic NS BID [facility] Stop: 01/30/20 00:14 Last Admin: 01/26/20 09:27 Dose: 1 applic Documented by: - Objective Vital Signs: Vital Signs Temperature 98.2 F 01/26/20 14:00 Pulse Rate 86 01/26/20 14:00 Respiratory Rate 17 01/26/20 14:00 Blood Pressure 116/67 01/26/20 14:00 O2 Sat by Pulse Oximetry (%) 99 01/26/20 12:30 Cardiovascular: Yes: S1, S2 Respiratory: Yes: Intubated, Mechanically Ventilated, Other (chest tube in place) Musculoskeletal: Yes: WNL Extremities: Yes: WNL Neurological: Yes: Other Labs: CBC, BMP 01/26/20 05:55 01/26/20 05:55 INR, PTT INR 1.10 (0.83-1.09) H 01/25/20 05:35 - ....Imaging Chest X-ray: Report Reviewed, Image Reviewed Assessment/Plan this patient with multiple medical issues coming in with ams and resp failure and now intubated Acute Hypoxic and Hypercapneic Respiratory Failure Pneumonia suspect Aspiration Sepsis Lactic Acidosis Parkinsons Supranuclear Palsy plan continue icu care iv abx await for identification of the organism vent mgmt close watch cc 40 min
--- NOTE | 2020-01-26 19:56 | PN ---
Physical Exam: SUBJECTIVE: Patient seen and examined OBJECTIVE: Vital Signs Period Temp Pulse Resp BP Sys/Villegas Pulse Ox Last 24 Hr 98.1 F-101.6 F 68-105 14-24 95-118/59-74 95-100 GENERAL: The patient is awake, alert, and fully oriented, in no acute distress. HEAD: Normal with no signs of trauma. EYES: PERRL, extraocular movements intact, sclera anicteric, conjunctiva clear. No ptosis. ENT: Ears normal, nares patent, oropharynx clear without exudates, moist mucous membranes. NECK: Trachea midline, full range of motion, supple. LUNGS: Breath sounds equal, clear to auscultation bilaterally, no wheezes, no crackles, no accessory muscle use. HEART: Regular rate and rhythm, S1, S2 without murmur, rub or gallop. ABDOMEN: Soft, nontender, nondistended, normoactive bowel sounds, no guarding, no rebound, no hepatosplenomegaly, no masses. EXTREMITIES: 2+ pulses, warm, well-perfused, no edema. NEUROLOGICAL: Cranial nerves II through XII grossly intact. Normal speech, gait not observed. PSYCH: Normal mood, normal affect. SKIN: Warm, dry, normal turgor, no rashes or lesions noted Laboratory Results - last 24 hr 01/24/20 01/25/20 01/25/20 23:15 18:45 19:00 WBC RBC Hgb Hct MCV MCH MCHC RDW Plt Count MPV Absolute Neuts (auto) Neutrophils % Lymphocytes % Monocytes % Eosinophils % Basophils % Nucleated RBC % Anticoagulation Therapy Puncture Site Patient Temperature ABG pH ABG pCO2 ABG pO2 ABG HCO3 ABG O2 Sat (Measured) ABG O2 Content ABG Base Excess Darion Test Patient On Oxygen O2 Delivery Device Oxygen Flow Rate Vent Mode Vent Rate Mechanical Rate PEEP Pressure Support Vent Sodium Potassium Chloride Carbon Dioxide Anion Gap BUN Creatinine Est GFR (CKD-EPI)AfAm Est GFR (CKD-EPI)NonAf Random Glucose Lactic Acid 2.4 H* Calcium Phosphorus Magnesium Total Bilirubin AST ALT Alkaline Phosphatase Creatine Kinase 38 Troponin I < 0.02 Total Protein Albumin COVID-19 (CAT) Not detected 01/26/20 01/26/20 01/26/20 05:55 05:55 06:20 WBC 7.3 RBC 3.75 L Hgb 11.6 L Hct 35.1 L MCV 93.7 MCH 30.8 MCHC 32.9 RDW 16.0 H Plt Count 207 MPV 9.1 Absolute Neuts (auto) 5.5 Neutrophils % 75.6 Lymphocytes % 13.5 D Monocytes % 9.4 Eosinophils % 1.0 D Basophils % 0.5 D Nucleated RBC % 0 Anticoagulation Therapy No Result Required. Puncture Site Right radial Patient Temperature No Result Required. ABG pH 7.446 ABG pCO2 43.40 ABG pO2 101.6 H ABG HCO3 29.2 H ABG O2 Sat (Measured) 97.8 ABG O2 Content No Result Required. ABG Base Excess 4.6 H Darion Test Positive Patient On Oxygen Yes O2 Delivery Device Vent Oxygen Flow Rate 50% Vent Mode A/c Vent Rate 24 Mechanical Rate Vent PEEP 5.0 Pressure Support Vent 420 Sodium 142 Potassium 3.8 Chloride 105 Carbon Dioxide 31 Anion Gap 7 L BUN 20.8 H Creatinine 0.7 Est GFR (CKD-EPI)AfAm 113.98 Est GFR (CKD-EPI)NonAf 98.34 Random Glucose 61 L Lactic Acid Calcium 7.8 L Phosphorus 3.4 Magnesium 2.2 Total Bilirubin 1.2 H AST 13 L ALT 18 Alkaline Phosphatase 66 Creatine Kinase Troponin I Total Protein 5.1 L Albumin 1.9 L COVID-19 (CAT) Active Medications Generic Name Dose Route Start Last Admin Trade Name Freq PRN Reason Stop Dose Admin Acetaminophen 1,000 mg 01/25/20 20:54 01/25/20 21:34 Ofirmev Injection - IVPB 01/26/20 20:54 1,000 mg Q6H PRN Administration FEVER Acetylcysteine 200 mg 01/25/20 16:00 Mucomyst 20 Oral / Inh Use Only* PO RQ4H [facility] Albuterol Sulfate 1 amp 01/25/20 21:01 Ventolin 0.5% - NEB Q4H PRN SHORT OF BREATH/WHEEZING Chlorhexidine Gluconate 1 applic 01/25/20 22:00 01/25/20 21:03 Hibiclens For Decolonization - TP 1 applic HS [facility] Administration Enoxaparin Sodium 40 mg 01/25/20 10:00 01/26/20 09:27 Lovenox - SQ 40 mg DAILY [facility] Administration Propofol 1,000,000 mcg in 100 mls @ 2.449 mls/hr 01/24/20 22:45 01/26/20 09:31 Diprivan - IVPB 50 mcg/kg/min TITR [facility] 24.494 mls/hr Administration Protocol 5 MCG/KG/MIN Fentanyl 500 mcg in 100 mls @ 16.329 mls/hr 01/25/20 05:00 01/26/20 13:38 Sublimaze Ivpb IVPB 1.22 mcg/kg/hr TITR [facility] 20 mls/hr Administration Protocol 1 MCG/KG/HR Sodium Chloride 1,000 mls @ 125 mls/hr 01/25/20 08:07 01/26/20 13:37 Normal Saline - IV 125 mls/hr ASDIR [facility] Administration Vancomycin HCl 1,000 mg in 250 mls @ 166.667 mls/hr 01/25/20 22:00 01/26/20 09:27 Vancomycin (Pre-Docked) IVPB 166.667 mls/hr BID [facility] Administration Protocol Piperacillin Sod/Tazobactam 100 mls @ 200 mls/hr 01/25/20 10:27 01/26/20 14:30 Sod 4.5 gm/ Dextrose IVPB 200 mls/hr Q6H-IV [facility] Administration Protocol Mupirocin 1 applic 01/25/20 00:15 01/26/20 09:27 Bactroban Ointment (For Decolonization) - NS 01/30/20 00:14 1 applic BID [facility] Administration ASSESSMENT/PLAN: ATTENDING PHYSICIAN STATEMENT I saw and evaluated the patient. I reviewed the resident's note and discussed the case with the resident. I agree with the resident's findings and plan as documented. SUBJECTIVE: OBJECTIVE: ASSESSMENT AND PLAN:
[2020-01-26] MEDS ORDERED: ACETYLCYSTEINE 20% 200MG/ML 4 ML VIAL *FOR ORAL / INH USE ONLY PO SCH (20:00)
[2020-01-26] MEDS: ALBUTEROL SO4 0.5 % INH SOLN 2.5 MG/0.5 ML VIAL.NEB. NEB PRN (20:30)
[2020-01-26] MEDS: CHLORHEXIDINE GLUCONATE 4% CLEANSER FOR DECOLONIZATION TP SCH (22:07)
[2020-01-27] MEDS ORDERED: DEXTROSE 5%-WATER 100 ML IVPB ONE ×4 (00:01→19:34)
[2020-01-27] MEDS ORDERED: DEXTROSE 50%-WATER - 25 GM/50 ML VIAL ONE ×2 (00:07→07:03)
[2020-01-27] MEDS: FENTANYL IVPB 500 MCG/100 ML BAG IVPB SCH ×4 (01:00→16:56)
[2020-01-27] MEDS: SODIUM CHLORIDE 1,000 ML IV SCH ×3 (01:02→23:20)
[2020-01-27] MEDS: PIPERACILLIN/TAZOB 4.5 GM 4.5 GM in DEXTROSE 5%-WATER 100 ML IVPB SCH ×4 (02:53→21:10)
[2020-01-27] MEDS: PROPOFOL 1,000,000 MCG/100 ML VIAL IVPB SCH ×3 (06:25→23:21)
[2020-01-27] MEDS ORDERED: DEXTROSE 50%-WATER - 25 GM/50 ML VIAL IVPUSH ONE (06:33)
[2020-01-27 07:22] LABS: HEMATOCRIT 36.6 % (35.4-49); HEMOGLOBIN 11.9 GM/dL (11.7-16.9); MCH 30.5 pg (25.7-33.7); MCHC 32.6 g/dl (32.0-35.9); MEAN CELL VOLUME 93.7 fl (80-96); MEAN PLT VOLUME 8.8 fl (7.5-11.1); PLATELET COUNT 232 K/MM3 (134-434); RDW 15.7 % (11.9-15.9)
[2020-01-27 07:37] LABS: ALBUMIN 1.9 g/dl (3.4-5.0); BILIRUBIN,TOTAL 0.8 mg/dL (0.2-1); BLOOD UREA NITROGEN 12.2 mg/dL (7-18); CALCIUM 7.8 mg/dL (8.5-10.1); CREATININE 0.5 mg/dL (0.55-1.3); MAGNESIUM 2.1 mg/dL (1.8-2.4); PHOSPHOROUS 3.6 mg/dL (2.5-4.9); POTASSIUM 3.9 mmol/L (3.5-5.1); TOT PROT 5.3 g/dl (6.4-8.2)
[2020-01-27] MEDS ORDERED: PIPERACILLIN/TAZOBACTAM 4.5 GM VIAL IVPB ONE ×4 (10:09→19:33)
[2020-01-27] MEDS: VANCOMYCIN 1 GRAM (PRE-DOCKED) 1,000 MG/250 ML BAG IVPB SCH (10:23)
[2020-01-27] MEDS: MUPIROCIN 2% TOPICAL OINTMENT FOR DECOLONIZATION NS SCH ×2 (10:24→21:10)
[2020-01-27] MEDS: ENOXAPARIN NA (PORCINE) 40 MG/0.4 ML DISP.SYRIN SQ SCH (10:24)
--- NOTE | 2020-01-27 11:03 | PN ---
Progress Note, Physician Chief Complaint: Acute Hypoxic and Hypercapneic Respiratory Failure Pneumonia suspect Aspiration Sepsis Lactic Acidosis Parkinsons Supranuclear Palsy History of Present Illness: 4 year old non-verbal male with PMH of Parkinson's disease with Supranuclear palsy with PEG tube placed. Last admission at [facility] was in November for Aspiration PNA. Pt unable to communicate and family not present at bedside. As per ER staff, pt was with AMS earlier today, pt is non verbal at baseline but is able to communicate minimally using hand gestures. EMS was called and pt was found to be hypoxic in the 80s on home oxygen of 2L, which improved to 90s after Ambu bagging. In the ER, he was sedated and intubated, septic workup initiated, and admitted to the ICU. In the ER pt again began to desat, CXR showed massive left sided effusion/infiltrate and chest tube was palced with improvement in SpO2. - Current Medication List Current Medications: Active Medications Acetylcysteine (Mucomyst 20 Oral / Inh Use Only*) 200 mg PO RQ4H [facility] Albuterol Sulfate (Ventolin 0.5% -) 1 amp NEB Q4H PRN PRN Reason: SHORT OF BREATH/WHEEZING Last Admin: 01/26/20 20:30 Dose: 1 amp Documented by: Chlorhexidine Gluconate (Hibiclens For Decolonization -) 1 applic TP HS [facility] Last Admin: 01/26/20 22:07 Dose: 1 applic Documented by: Enoxaparin Sodium (Lovenox -) 40 mg SQ DAILY [facility] Last Admin: 01/27/20 10:24 Dose: 40 mg Documented by: Propofol (Diprivan -) 1,000,000 mcg in 100 mls @ 2.449 mls/hr IVPB TITR [facility]; Protocol Last Admin: 01/27/20 10:25 Dose: 50 mcg/kg/min, 24.494 mls/hr Documented by: Fentanyl (Sublimaze Ivpb) 500 mcg in 100 mls @ 16.329 mls/hr IVPB TITR [facility]; Protocol Last Admin: 01/27/20 10:25 Dose: 1.22 mcg/kg/hr, 20 mls/hr Documented by: Sodium Chloride (Normal Saline -) 1,000 mls @ 125 mls/hr IV ASDIR [facility] Last Admin: 01/27/20 10:17 Dose: 125 mls/hr Documented by: Vancomycin HCl (Vancomycin (Pre-Docked)) 1,000 mg in 250 mls @ 166.667 mls/hr IVPB BID [facility]; Protocol Last Admin: 01/27/20 10:23 Dose: 166.667 mls/hr Documented by: Piperacillin Sod/Tazobactam (Sod 4.5 gm/ Dextrose) 100 mls @ 200 mls/hr IVPB Q6H-IV [facility]; Protocol Last Admin: 01/27/20 10:22 Dose: 200 mls/hr Documented by: Mupirocin (Bactroban Ointment (For Decolonization) -) 1 applic NS BID [facility] Stop: 01/30/20 00:14 Last Admin: 01/27/20 10:24 Dose: 1 applic Documented by: - Objective Vital Signs: Vital Signs Temperature 97.8 F 01/27/20 04:00 Pulse Rate 59 L 01/27/20 10:00 Respiratory Rate 14 01/27/20 10:00 Blood Pressure 99/57 L 01/27/20 10:00 O2 Sat by Pulse Oximetry (%) 99 01/27/20 10:00 Constitutional: Yes: Well Nourished, No Distress, Calm Cardiovascular: Yes: Regular Rate and Rhythm Respiratory: Yes: Mechanically Ventilated, Rhonchi (diffuse), Other (Left chest tube) Gastrointestinal: Yes: Normal Bowel Sounds, Soft Genitourinary: Yes: Merchant Present Edema: No Peripheral Pulses WNL: Yes Neurological: Yes: Other (sedated) Labs: CBC, BMP 01/27/20 06:17 01/27/20 06:17 INR, PTT INR 1.10 (0.83-1.09) H 01/25/20 05:35 Problem List - Problems (1) Pneumonia Assessment/Plan: -ID consult -IV abx -Serial CXR's -Pulmonary on board -Bronchodilators -Mech vent -COVID 19 PCR negative -Cultures: Microbiology 01/27/20 07:00 Sputum - Endotrachea Suction/Ventilator Gram Stain - Final 01/25/20 14:00 Sputum - Endotrachea Suction/Ventilator Gram Stain - Final 01/25/20 14:00 Sputum - Endotrachea Suction/Ventilator Sputum Culture - Final Pseudomonas Aeruginosa Staphylococcus Aureus 01/24/20 23:05 Blood - Peripheral Venous Blood Culture - Preliminary NO GROWTH OBTAINED AFTER 48 HOURS, INCUBATION TO CONTINUE FOR 3 DAYS. 01/24/20 23:05 Blood - Peripheral Venous Blood Culture - Preliminary NO GROWTH OBTAINED AFTER 48 HOURS, INCUBATION TO CONTINUE FOR 3 DAYS. 01/24/20 23:15 Urine - Urine - Catheterized Urine Culture - Final NO GROWTH OBTAINED Problems reviewed: Yes Code(s): J18.9 - PNEUMONIA, UNSPECIFIED ORGANISM Qualifiers: Pneumonia type: due to unspecified organism Laterality: bilateral Lung location: unspecified part of lung Qualified Code(s): J18.9 - Pneumonia, unspecified organism (2) Respiratory failure Assessment/Plan: as above Problems reviewed: Yes Code(s): J96.90 - RESPIRATORY FAILURE, UNSP, UNSP W HYPOXIA OR HYPERCAPNIA Qualifiers: Chronicity: acute Respiratory failure complication: hypoxia Qualified Code(s): J96.01 - Acute respiratory failure with hypoxia (3) Functional quadriplegia Problems reviewed: Yes Code(s): R53.2 - FUNCTIONAL QUADRIPLEGIA (4) Parkinson disease Problems reviewed: Yes Code(s): G20 - PARKINSON'S DISEASE (5) Supranuclear palsy Assessment/Plan: -Seen by neurology Problems reviewed: Yes Code(s): G23.1 - PROGRESSIVE SUPRANUCLEAR OPHTHALMOPLEGIA Assessment/Plan See problem list
--- NOTE | 2020-01-27 12:18 | PN ---
Teaching Attending Note Name of Resident: Errol Franco ATTENDING PHYSICIAN STATEMENT I saw and evaluated the patient. I reviewed the resident's note and discussed the case with the resident. I agree with the resident's findings and plan as documented. SUBJECTIVE: Pt seen and examined in the ICU. Intubated, sedated. No pressors. Fio2 40% PEEP 5. Chest tube with minimal drainage. Placed on CPAP/PS with good respiratory effort and RSBI but with copious secretions. OBJECTIVE: Vital Signs Period Temp Pulse Resp BP Sys/Villegas Pulse Ox Last 24 Hr 97.8 F-98.2 F 59-86 14-27 99-116/57-70 96-100 Intake & Output 01/24/20 01/25/20 01/26/20 01/27/20 23:59 23:59 23:59 23:59 Intake Total 2011 5494 1080 Output Total 578 458 6858 1080 Balance -300 1552 2484 0 Weight 81.647 kg 69.4 kg 69.5 kg 69.309 kg Gen: intubated, sedated Heart: RRR Lung: scattered rhonchi Abd: soft, nontender Ext: no edema CBC, BMP 01/27/20 06:17 01/27/20 06:17 Active Medications Acetylcysteine (Mucomyst 20 Oral / Inh Use Only*) 200 mg PO RQ4H [facility] Albuterol Sulfate (Ventolin 0.5% -) 1 amp NEB Q4H PRN PRN Reason: SHORT OF BREATH/WHEEZING Last Admin: 01/26/20 20:30 Dose: 1 amp Documented by: Amino Acids (Prosource No Carb Liquid Pkt) 30 ml PO DAILY [facility] Chlorhexidine Gluconate (Hibiclens For Decolonization -) 1 applic TP HS [facility] Last Admin: 01/26/20 22:07 Dose: 1 applic Documented by: Enoxaparin Sodium (Lovenox -) 40 mg SQ DAILY [facility] Last Admin: 01/27/20 10:24 Dose: 40 mg Documented by: Propofol (Diprivan -) 1,000,000 mcg in 100 mls @ 2.449 mls/hr IVPB TITR [facility]; Protocol Last Admin: 01/27/20 10:25 Dose: 50 mcg/kg/min, 24.494 mls/hr Documented by: Fentanyl (Sublimaze Ivpb) 500 mcg in 100 mls @ 16.329 mls/hr IVPB TITR [facility]; Protocol Last Admin: 01/27/20 10:25 Dose: 1.22 mcg/kg/hr, 20 mls/hr Documented by: Sodium Chloride (Normal Saline -) 1,000 mls @ 125 mls/hr IV ASDIR [facility] Last Admin: 01/27/20 10:17 Dose: 125 mls/hr Documented by: Vancomycin HCl (Vancomycin (Pre-Docked)) 1,000 mg in 250 mls @ 166.667 mls/hr IVPB BID [facility]; Protocol Last Admin: 01/27/20 10:23 Dose: 166.667 mls/hr Documented by: Piperacillin Sod/Tazobactam (Sod 4.5 gm/ Dextrose) 100 mls @ 200 mls/hr IVPB Q6H-IV [facility]; Protocol Last Admin: 01/27/20 10:22 Dose: 200 mls/hr Documented by: Mupirocin (Bactroban Ointment (For Decolonization) -) 1 applic NS BID [facility] Stop: 01/30/20 00:14 Last Admin: 01/27/20 10:24 Dose: 1 applic Documented by: ASSESSMENT AND PLAN: Acute Hypoxic and Hypercapneic Respiratory Failure Pneumonia suspect Aspiration Sepsis Lactic Acidosis r/o LA Parkinsons Supranuclear Palsy - continue antibiotics - f/u cultures - monitor urine output, creatinine - titrate Fio2, PEEP to keep Spo2 >90% - spontaneous breathing trials as tolerated but would not extubate until secretions less - start enteral feeds - DVT/GI prophylaxis - ICU monitoring critical care time spent in reviewing chart, evaluating patient and formulating plan 35 min
[2020-01-27] MEDS: AMINO ACIDS/PROTEIN HYDROLYS 30 ML LIQUID.PKT PO SCH (14:02)
--- NOTE | 2020-01-27 14:11 | PN ---
Progress Note, Physician History of Present Illness: continues to be intubated and sedated comfortable - Current Medication List Current Medications: Active Medications Acetylcysteine (Mucomyst 20 Oral / Inh Use Only*) 200 mg PO RQ4H [facility] Albuterol Sulfate (Ventolin 0.5% -) 1 amp NEB Q4H PRN PRN Reason: SHORT OF BREATH/WHEEZING Last Admin: 01/26/20 20:30 Dose: 1 amp Documented by: Amino Acids (Prosource No Carb Liquid Pkt) 30 ml PO DAILY [facility] Last Admin: 01/27/20 14:02 Dose: 30 ml Documented by: Chlorhexidine Gluconate (Hibiclens For Decolonization -) 1 applic TP HS [facility] Last Admin: 01/26/20 22:07 Dose: 1 applic Documented by: Enoxaparin Sodium (Lovenox -) 40 mg SQ DAILY [facility] Last Admin: 01/27/20 10:24 Dose: 40 mg Documented by: Propofol (Diprivan -) 1,000,000 mcg in 100 mls @ 2.449 mls/hr IVPB TITR [facility]; Protocol Last Admin: 01/27/20 10:25 Dose: 50 mcg/kg/min, 24.494 mls/hr Documented by: Fentanyl (Sublimaze Ivpb) 500 mcg in 100 mls @ 16.329 mls/hr IVPB TITR [facility]; Pr otocol Last Admin: 01/27/20 10:25 Dose: 1.22 mcg/kg/hr, 20 mls/hr Documented by: Sodium Chloride (Normal Saline -) 1,000 mls @ 125 mls/hr IV ASDIR [facility] Last Admin: 01/27/20 10:17 Dose: 125 mls/hr Documented by: Vancomycin HCl (Vancomycin (Pre-Docked)) 1,000 mg in 250 mls @ 166.667 mls/hr IVPB BID [facility]; Protocol Last Admin: 01/27/20 10:23 Dose: 166.667 mls/hr Documented by: Piperacillin Sod/Tazobactam (Sod 4.5 gm/ Dextrose) 100 mls @ 200 mls/hr IVPB Q6H-IV [facility]; Protocol Last Admin: 01/27/20 14:02 Dose: 200 mls/hr Documented by: Mupirocin (Bactroban Ointment (For Decolonization) -) 1 applic NS BID [facility] Stop: 01/30/20 00:14 Last Admin: 01/27/20 10:24 Dose: 1 applic Documented by: - Objective Vital Signs: Vital Signs Temperature 97.3 F L 01/27/20 13:14 Pulse Rate 60 01/27/20 13:14 Respiratory Rate 14 01/27/20 13:14 Blood Pressure 106/43 L 01/27/20 13:14 O2 Sat by Pulse Oximetry (%) 100 01/27/20 12:14 Constitutional: Yes: Other Cardiovascular: Yes: S1, S2 Respiratory: Yes: Intubated, Mechanically Ventilated, Other (chest tube in place) Gastrointestinal: Yes: Normal Bowel Sounds, Soft Musculoskeletal: Yes: WNL Extremities: Yes: WNL Labs: CBC, BMP 01/27/20 06:17 01/27/20 06:17 INR, PTT INR 1.10 (0.83-1.09) H 01/25/20 05:35 - ....Imaging Chest X-ray: Report Reviewed, Image Reviewed Assessment/Plan this patient with multiple medical issues coming in with ams and resp failure and now intubated Acute Hypoxic and Hypercapneic Respiratory Failure Pneumonia suspect Aspiration Sepsis Lactic Acidosis Parkinsons Supranuclear Palsy plan continue icu care iv abx organisms noted await for sensitivities vent mgmt close watch cc 40 min
[2020-01-27] MEDS ORDERED: ACETAMINOPHEN 650 MG/20.3 ML ORAL SOLUTION (CUPS) GT PRN (17:27)
--- NOTE | 2020-01-27 18:23 | PN ---
Physical Exam: SUBJECTIVE: Patient seen and examined. Intubated and sedated (propofol 50 mcg/kg/min & fentanyl 100 mcg/h). 80 mL serosanguineous fluid draining from chest tube overnight. OBJECTIVE: Vital Signs Period Temp Pulse Resp BP Sys/Villegas Pulse Ox Last 24 Hr 97.3 F-97.8 F 59-73 14-27 98-116/43-70 96-100 GENERAL: Intubated and sedated HEENT: NC,AT, PERRL LUNGS: Breath sounds equal, clear to auscultation bilaterally, no wheezes, no crackles, no accessory muscle use. decreased breath sounds bases b/l HEART: Regular rate and rhythm, S1, S2 without murmur, rub or gallop. ABDOMEN: Soft, nontender, nondistended, normoactive bowel sounds, no guarding, PEG tube in RUQ EXTREMITIES: 2+ pulses, warm, well-perfused, no edema. SKIN: Warm, dry, stage II ulcer on L buttock, no erythema, no discharge Laboratory Results - last 24 hr 01/26/20 01/26/20 01/27/20 21:59 23:12 06:17 WBC 5.0 RBC 3.90 L Hgb 11.9 Hct 36.6 MCV 93.7 MCH 30.5 MCHC 32.6 RDW 15.7 Plt Count 232 MPV 8.8 Sodium Potassium Chloride Carbon Dioxide Anion Gap BUN Creatinine Est GFR (CKD-EPI)AfAm Est GFR (CKD-EPI)NonAf POC Glucometer 75 Random Glucose Lactic Acid Cancelled Calcium Phosphorus Magnesium Total Bilirubin AST ALT Alkaline Phosphatase Total Protein Albumin Random Vancomycin 01/27/20 01/27/20 01/27/20 06:17 06:17 06:31 WBC RBC Hgb Hct MCV MCH MCHC RDW Plt Count MPV Sodium 141 Potassium 3.9 Chloride 106 Carbon Dioxide 29 Anion Gap 6 L BUN 12.2 Creatinine 0.5 L Est GFR (CKD-EPI)AfAm 130.88 Est GFR (CKD-EPI)NonAf 112.92 POC Glucometer 57 Random Glucose 61 L Lactic Acid 1.2 Calcium 7.8 L Phosphorus 3.6 Magnesium 2.1 Total Bilirubin 0.8 AST 16 ALT 18 Alkaline Phosphatase 66 Total Protein 5.3 L Albumin 1.9 L Random Vancomycin 01/27/20 12:15 WBC RBC Hgb Hct MCV MCH MCHC RDW Plt Count MPV Sodium Potassium Chloride Carbon Dioxide Anion Gap BUN Creatinine Est GFR (CKD-EPI)AfAm Est GFR (CKD-EPI)NonAf POC Glucometer Random Glucose Lactic Acid Calcium Phosphorus Magnesium Total Bilirubin AST ALT Alkaline Phosphatase Total Protein Albumin Random Vancomycin 30.6 H* Active Medications Generic Name Dose Route Start Last Admin Trade Name Freq PRN Reason Stop Dose Admin Acetaminophen 650 mg 01/27/20 17:27 Tylenol Oral Solution - GT Q4H PRN FEVER Acetylcysteine 200 mg 01/26/20 20:00 Mucomyst 20 Oral / Inh Use Only* PO RQ4H [facility] Albuterol Sulfate 1 amp 01/25/20 21:01 01/26/20 20:30 Ventolin 0.5% - NEB 1 amp Q4H PRN Administration SHORT OF BREATH/WHEEZING Amino Acids 30 ml 01/27/20 12:00 01/27/20 14:02 Prosource No Carb Liquid Pkt PO 30 ml DAILY [facility] Administration Chlorhexidine Gluconate 1 applic 01/25/20 22:00 01/26/20 22:07 Hibiclens For Decolonization - TP 1 applic HS [facility] Administration Enoxaparin Sodium 40 mg 01/25/20 10:00 01/27/20 10:24 Lovenox - SQ 40 mg DAILY [facility] Administration Propofol 1,000,000 mcg in 100 mls @ 2.449 mls/hr 01/24/20 22:45 01/27/20 10:25 Diprivan - IVPB 50 mcg/kg/min TITR [facility] 24.494 mls/hr Administration Protocol 5 MCG/KG/MIN Fentanyl 500 mcg in 100 mls @ 16.329 mls/hr 01/25/20 05:00 01/27/20 16:56 Sublimaze Ivpb IVPB 1.22 mcg/kg/hr TITR [facility] 20 mls/hr Administration Protocol 1 MCG/KG/HR Piperacillin Sod/Tazobactam 100 mls @ 200 mls/hr 01/25/20 10:27 01/27/20 14:02 Sod 4.5 gm/ Dextrose IVPB 200 mls/hr Q6H-IV [facility] Administration Protocol Sodium Chloride 1,000 mls @ 75 mls/hr 01/27/20 17:27 Normal Saline - IV ASDIR [facility] Mupirocin 1 applic 01/25/20 00:15 01/27/20 10:24 Bactroban Ointment (For Decolonization) - NS 01/30/20 00:14 1 applic BID [facility] Administration ASSESSMENT/PLAN: 64 YO M PMH HTN, BPH, Parkinson's disease with Supranuclear palsy (with PEG tube in RUQ). Found to have PNA. Admitted to ICU for Acute hypoxic, hypercapnic respiratory failure 2/2 PNA. #Neuro - CT Head: no acute findings. Paranasal sinus fluid (mild b/l ethmoid,sphenoid, minimal to mild b/l maxillary sinus fluid accumulation [sinusitis VS secondary to intubation) -intubated and sedated with propofol and midazolam -Parkinson's disease. Family requested Dr. Bashir as neurologist. Follow-up neurology consult -will resume home meds once verified with pharmacy. Called pharmacy, unable to reach pharmacist #Pulm # Acute hypoxic, hypercapnic respiratory failure 2/2 PNA -CXR (admission): Left infiltrate w/ fluid or atelectasis on the Left base, mediastinal shift to the left, slight scoliois with arthritic changes -CT chest: Trace L sided pneumothorax. L lower lobe atelectasis with resultant Leftward mediastinal deviation. Small L upper lobe as well as very small right upper and right lower lobe infiltrates. Very small pericardial effusion. mildly enlarged mediastinal lymph nodes, on a reactive basis -s/p Chest tube in ED due to suspicion of effusion. Imaging on Chest CT shows a collapsed Left lower lobe and the mediastinal shift to the left with findings on the Left base are indicative of atelectasis. -80 mL serosauineous fluid draining from chest tube overnight. -Vent AC: PEEP 5, FiO2 40, TV 420, rate 14. -breathing trial as tolerated. Will NOT extubate patient until secretions reduce #Cardio #HTN: hypotensive. will hold home medications affecting BP. maintain MAP >65. continue with NS@125 ml/hr #ST elevation on EKG EKG: Sinus tachycardia. Left axis deviation. Right bundle branch block. ST elevation. 101 bpm, QTC 464 -Trop X2 negative -lactic acid downtrended to 1.2 #ID -CXR: Left infiltrate -Today's CXR: no change. Left base atelectasis /infiltrate with fluid -blood culture neg X2 (01/23) -ucx neg (01/23) -sputum cx: pseudomonas aeruginosa & staph aureus. Pseudomonas sensitive to zosyn. discussed with ID -vanc level: 30.69. vancomycin was stopped. continue with zosyn 4.5 g IVPB Q6H #Renal - BUN/Cr 12.2/0.5 today - UA 1+ Protein with trace ketones -5494 mL I's/3010 ml O's/2484 ml balance # #BPH: -will resume home meds once verified with pharmacy. Called pharmacy, unable to reach pharmacist - Mensah in place #FEN -NS @125 ml/hr -monitor lytes -Jevity #DVT PPX Lovenox 40 mg SQ #Lines Left chest tube (01/24) mensah (01/23) ETT (01/24) RUQ peg (patient presented to ED with it) #Dispo -maintain ICU Visit type - Emergency Visit Emergency Visit: Yes ED Registration Date: 01/24/20 Care time: The patient presented to the Emergency Department on the above date and was hospitalized for further evaluation of their emergent condition. - New Patient This patient is new to me today: No - Critical Care Critical Care patient: No - Medication Review Med list reviewed for High Risk Meds patients 65 and older: Yes ATTENDING PHYSICIAN STATEMENT I saw and evaluated the patient. I reviewed the resident's note and discussed the case with the resident. I agree with the resident's findings and plan as documented. SUBJECTIVE: OBJECTIVE: ASSESSMENT AND PLAN:
[2020-01-27] MEDS: CHLORHEXIDINE GLUCONATE 4% CLEANSER FOR DECOLONIZATION TP SCH (21:11)
[2020-01-27] MEDS: TETRAHYDROZOLINE HCL EYE DROPS OU PRN (23:31)
[2020-01-27] MEDS ORDERED: ACETYLCYSTEINE 20% 200MG/ML 4 ML VIAL *FOR ORAL / INH USE ONLY NEB SCH (23:45)
[2020-01-28] MEDS ORDERED: DEXTROSE 5%-WATER 100 ML IVPB ONE ×4 (00:47→20:49)
[2020-01-28] MEDS ORDERED: PIPERACILLIN/TAZOBACTAM 4.5 GM VIAL IVPB ONE ×4 (00:47→20:49)
[2020-01-28] MEDS: FENTANYL IVPB 500 MCG/100 ML BAG IVPB SCH ×2 (01:10→09:41)
[2020-01-28] MEDS: PIPERACILLIN/TAZOB 4.5 GM 4.5 GM in DEXTROSE 5%-WATER 100 ML IVPB SCH ×4 (02:00→21:48)
[2020-01-28] MEDS ORDERED: FENTANYL NS IVPB 500 MCG/100 ML BAG IVPB ONE (03:46)
[2020-01-28] MEDS: PROPOFOL 1,000,000 MCG/100 ML VIAL IVPB SCH (04:51)
[2020-01-28 07:07] LABS: ARTERIAL BLD GAS O2 SATURATION 97.7 mmHg (95-98); ARTERIAL BLOOD GAS BASE EXCESS 2.7 mmol/L (-2-2); ARTERIAL BLOOD GAS PO2 104.1 mmHg (80-100); ARTERIAL BLOOD GAS pH 7.396 (7.350-7.450)
[2020-01-28 07:12] LABS: ALLENS TEST POSITIVE
[2020-01-28 07:13] LABS: BASO % 0.7 % (0-2.0); EOS % 5.9 % (0-4.5); HEMATOCRIT 34.5 % (35.4-49); HEMOGLOBIN 11.3 GM/dL (11.7-16.9); LYMPH % 21.4 % (8-40); MCH 30.3 pg (25.7-33.7); MCHC 32.6 g/dl (32.0-35.9); MEAN PLT VOLUME 8.6 fl (7.5-11.1); MONO % 12.7 % (3.8-10.2); NEUT % 59.3 % (42.8-82.8); PLATELET COUNT 256 K/MM3 (134-434); RBC 3.71 M/mm3 (4.00-5.60); RDW 15.4 % (11.9-15.9); WHITE BLOOD COUNT 3.3 K/mm3 (4.0-10.0)
[2020-01-28 07:14] LABS: VENT MODE A/C; VENT RATE 14
[2020-01-28 07:26] LABS: ALBUMIN 1.7 g/dl (3.4-5.0); BILIRUBIN,TOTAL 0.3 mg/dL (0.2-1); CALCIUM 7.7 mg/dL (8.5-10.1); CREATININE 0.4 mg/dL (0.55-1.3); MAGNESIUM 2.1 mg/dL (1.8-2.4); PHOSPHOROUS 2.8 mg/dL (2.5-4.9); POTASSIUM 3.7 mmol/L (3.5-5.1)
[2020-01-28] MEDS: ENOXAPARIN NA (PORCINE) 40 MG/0.4 ML DISP.SYRIN SQ SCH (09:41)
[2020-01-28] MEDS: AMINO ACIDS/PROTEIN HYDROLYS 30 ML LIQUID.PKT PO SCH (09:41)
[2020-01-28] MEDS: MUPIROCIN 2% TOPICAL OINTMENT FOR DECOLONIZATION NS SCH ×2 (10:00→21:48)
--- NOTE | 2020-01-28 12:21 | PN ---
Progress Note, Physician - Current Medication List Current Medications: Active Medications Acetaminophen (Tylenol Oral Solution -) 650 mg GT Q4H PRN PRN Reason: FEVER Acetylcysteine (Mucomyst 20 Oral / Inh Use Only*) 200 mg NEB RQ4H [facility] Albuterol Sulfate (Ventolin 0.5% -) 1 amp NEB Q4H PRN PRN Reason: SHORT OF BREATH/WHEEZING Last Admin: 01/26/20 20:30 Dose: 1 amp Documented by: Amino Acids (Prosource No Carb Liquid Pkt) 30 ml PO DAILY [facility] Last Admin: 01/28/20 09:41 Dose: 30 ml Documented by: Chlorhexidine Gluconate (Hibiclens For Decolonization -) 1 applic TP HS [facility] Last Admin: 01/27/20 21:11 Dose: 1 applic Documented by: Enoxaparin Sodium (Lovenox -) 40 mg SQ DAILY [facility] Last Admin: 01/28/20 09:41 Dose: 40 mg Documented by: Propofol (Diprivan -) 1,000,000 mcg in 100 mls @ 2.449 mls/hr IVPB TITR [facility]; Protocol Last Admin: 01/28/20 04:51 Dose: 32.66 mcg/kg/min, 16 mls/hr Documented by: Fentanyl (Sublimaze Ivpb) 500 mcg in 100 mls @ 16.329 mls/hr IVPB TITR [facility]; Protocol Last Admin: 01/28/20 09:41 Dose: 1.22 mcg/kg/hr, 19.922 mls/hr Documented by: Piperacillin Sod/Tazobactam (Sod 4.5 gm/ Dextrose) 100 mls @ 200 mls/hr IVPB Q6H-IV [facility]; Protocol Last Admin: 01/28/20 09:41 Dose: 200 mls/hr Documented by: Sodium Chloride (Normal Saline -) 1,000 mls @ 75 mls/hr IV ASDIR [facility] Last Admin: 01/27/20 23:20 Dose: 75 mls/hr Documented by: Mupirocin (Bactroban Ointment (For Decolonization) -) 1 applic NS BID [facility] Stop: 01/30/20 00:14 Last Admin: 01/27/20 21:10 Dose: 1 applic Documented by: Tetrahydrozoline HCl (Visine -) 1 drop OU QID PRN PRN Reason: DRY EYES Last Admin: 01/27/20 23:31 Dose: 1 drop Documented by: - Objective Vital Signs: Vital Signs Temperature 98.8 F 01/28/20 06:00 Pulse Rate 79 01/28/20 06:00 Respiratory Rate 27 H 01/28/20 12:15 Blood Pressure 123/67 01/28/20 06:00 O2 Sat by Pulse Oximetry (%) 100 01/28/20 12:15 Cardiovascular: Yes: S1, S2 Respiratory: Yes: Mechanically Ventilated Gastrointestinal: Yes: Normal Bowel Sounds, Soft Labs: CBC, BMP 01/28/20 06:00 01/28/20 06:00 INR, PTT INR 1.10 (0.83-1.09) H 01/25/20 05:35 Problem List - Problems (1) Respiratory failure Code(s): J96.90 - RESPIRATORY FAILURE, UNSP, UNSP W HYPOXIA OR HYPERCAPNIA Qualifiers: Chronicity: acute Respiratory failure complication: hypoxia Qualified Code(s): J96.01 - Acute respiratory failure with hypoxia (2) Pneumonia Code(s): J18.9 - PNEUMONIA, UNSPECIFIED ORGANISM Qualifiers: Pneumonia type: due to unspecified organism Laterality: bilateral Lung location: unspecified part of lung Qualified Code(s): J18.9 - Pneumonia, unspecified organism (3) Parkinson disease Code(s): G20 - PARKINSON'S DISEASE (4) Sepsis Code(s): A41.9 - SEPSIS, UNSPECIFIED ORGANISM Qualifiers: Acute respiratory failure type: with hypoxia Severe sepsis shock status: without septic shock Assessment/Plan - Problems (1) Pneumonia Assessment/Plan: -ID consult -IV abx -Serial CXR's -Pulmonary on board -Bronchodilators -[facility] vent -COVID 19 PCR negative -Cultures: Microbiology 01/27/20 07:00 Sputum - Endotrachea Suction/Ventilator Gram Stain - Final 01/25/20 14:00 Sputum - Endotrachea Suction/Ventilator Gram Stain - Final 01/25/20 14:00 Sputum - Endotrachea Suction/Ventilator Sputum Culture - Final Pseudomonas Aeruginosa Staphylococcus Aureus 01/24/20 23:05 Blood - Peripheral Venous Blood Culture - Preliminary NO GROWTH OBTAINED AFTER 48 HOURS, INCUBATION TO CONTINUE FOR 3 DAYS. 01/24/20 23:05 Blood - Peripheral Venous Blood Culture - Preliminary NO GROWTH OBTAINED AFTER 48 HOURS, INCUBATION TO CONTINUE FOR 3 DAYS. 01/24/20 23:15 Urine - Urine - Catheterized Urine Culture - Final NO GROWTH OBTAINED Problems reviewed: Yes Code(s): J18.9 - PNEUMONIA, UNSPECIFIED ORGANISM Qualifiers: Pneumonia type: due to unspecified organism Laterality: bilateral Lung location: unspecified part of lung Qualified Code(s): J18.9 - Pneumonia, unspecified organism (2) Respiratory failure Assessment/Plan: as above Problems reviewed: Yes Code(s): J96.90 - RESPIRATORY FAILURE, UNSP, UNSP W HYPOXIA OR HYPERCAPNIA Qualifiers: Chronicity: acute Respiratory failure complication: hypoxia Qualified Code(s): J96.01 - Acute respiratory failure with hypoxia (3) Functional quadriplegia Problems reviewed: Yes Code(s): R53.2 - FUNCTIONAL QUADRIPLEGIA (4) Parkinson disease Problems reviewed: Yes Code(s): G20 - PARKINSON'S DISEASE (5) Supranuclear palsy Assessment/Plan: -Seen by neurology Problems reviewed: Yes Code(s): G23.1 - PROGRESSIVE SUPRANUCLEAR OPHTHALMOPLEGIA
--- NOTE | 2020-01-28 12:33 | PN ---
Progress Note, Physician History of Present Illness: continues to be intubated and sedated comfortable - Current Medication List Current Medications: Active Medications Acetaminophen (Tylenol Oral Solution -) 650 mg GT Q4H PRN PRN Reason: FEVER Acetylcysteine (Mucomyst 20 Oral / Inh Use Only*) 200 mg NEB RQ4H [facility]ITA Albuterol Sulfate (Ventolin 0.5% -) 1 amp NEB Q4H PRN PRN Reason: SHORT OF BREATH/WHEEZING Last Admin: 01/26/20 20:30 Dose: 1 amp Documented by: Amino Acids (Prosource No Carb Liquid Pkt) 30 ml PO DAILY [facility] Last Admin: 01/28/20 09:41 Dose: 30 ml Documented by: Chlorhexidine Gluconate (Hibiclens For Decolonization -) 1 applic TP HS [facility] Last Admin: 01/27/20 21:11 Dose: 1 applic Documented by: Enoxaparin Sodium (Lovenox -) 40 mg SQ DAILY [facility] Last Admin: 01/28/20 09:41 Dose: 40 mg Documented by: Propofol (Diprivan -) 1,000,000 mcg in 100 mls @ 2.449 mls/hr IVPB TITR [facility]; Protocol Last Admin: 01/28/20 04:51 Dose: 32.66 mcg/kg/min, 16 mls/hr Documented by: Fentanyl (Sublimaze Ivpb) 500 mcg in 100 mls @ 16.329 mls/hr IVPB TITR [facility]ITA; Protocol Last Admin: 01/28/20 09:41 Dose: 1.22 mcg/kg/hr, 19.922 mls/hr Documented by: Piperacillin Sod/Tazobactam (Sod 4.5 gm/ Dextrose) 100 mls @ 200 mls/hr IVPB Q6H-IV [facility]RITA; Protocol Last Admin: 01/28/20 09:41 Dose: 200 mls/hr Documented by: Sodium Chloride (Normal Saline -) 1,000 mls @ 75 mls/hr IV ASDIR [facility] Last Admin: 01/27/20 23:20 Dose: 75 mls/hr Documented by: Mupirocin (Bactroban Ointment (For Decolonization) -) 1 applic NS BID [facility] Stop: 01/30/20 00:14 Last Admin: 01/27/20 21:10 Dose: 1 applic Documented by: Tetrahydrozoline HCl (Visine -) 1 drop OU QID PRN PRN Reason: DRY EYES Last Admin: 01/27/20 23:31 Dose: 1 drop Documented by: - Objective Vital Signs: Vital Signs Temperature 98.8 F 01/28/20 06:00 Pulse Rate 79 01/28/20 06:00 Respiratory Rate 27 H 01/28/20 12:15 Blood Pressure 123/67 01/28/20 06:00 O2 Sat by Pulse Oximetry (%) 100 01/28/20 12:15 Constitutional: Yes: Other Cardiovascular: Yes: S1, S2 Respiratory: Yes: Intubated, Mechanically Ventilated, Other (chest tube in place) Gastrointestinal: Yes: Normal Bowel Sounds, Soft Musculoskeletal: Yes: WNL Extremities: Yes: WNL Labs: CBC, BMP 01/28/20 06:00 01/28/20 06:00 INR, PTT INR 1.10 (0.83-1.09) H 01/25/20 05:35 - ....Imaging Chest X-ray: Report Reviewed, Image Reviewed Assessment/Plan this patient with multiple medical issues coming in with ams and resp failure and now intubated Acute Hypoxic and Hypercapneic Respiratory Failure Pneumonia suspect Aspiration Sepsis Lactic Acidosis Parkinsons Supranuclear Palsy plan continue icu care iv abx organisms noted resp support close watch cc 40 min
--- NOTE | 2020-01-28 13:19 | PN ---
Progress Note (short form) - Note Progress Note: PULM/CCM Pt seen and examined in the ICU. Intubated, sedated on propofol and fentanyl. No pressors. Fio2 40% PEEP 5. Chest tube with minimal drainage. Large amount of clear oral and endotrecheal secretions Vital Signs Period Temp Pulse Resp BP Sys/Villegas Pulse Ox Last 24 Hr 96.5 F-98.8 F 70-83 13-27 108-138/62-77 82-100 Intake & Output 01/26/20 01/27/20 01/28/20 01/29/20 23:59 23:59 23:59 23:59 Intake Total 5494 4031 3576 Output Total 3010 3405 2350 Balance 2484 626 1226 Weight 69.5 kg 68.946 kg 72.711 kg Gen: intubated, sedated Heart: RRR Lung: scattered rhonchi Abd: soft, nontender Ext: no edema CBC, BMP 01/28/20 06:00 01/28/20 06:00 Active Medications Acetaminophen (Tylenol Oral Solution -) 650 mg GT Q4H PRN PRN Reason: FEVER Acetylcysteine (Mucomyst 20 Oral / Inh Use Only*) 200 mg NEB RQ4H [facility] Albuterol Sulfate (Ventolin 0.5% -) 1 amp NEB Q4H PRN PRN Reason: SHORT OF BREATH/WHEEZING Last Admin: 01/26/20 20:30 Dose: 1 amp Documented by: Amino Acids (Prosource No Carb Liquid Pkt) 30 ml PO DAILY [facility] Last Admin: 01/28/20 09:41 Dose: 30 ml Documented by: Chlorhexidine Gluconate (Hibiclens For Decolonization -) 1 applic TP HS [facility] Last Admin: 01/28/20 21:49 Dose: 1 applic Documented by: Enoxaparin Sodium (Lovenox -) 40 mg SQ DAILY [facility] Last Admin: 01/28/20 09:41 Dose: 40 mg Documented by: Propofol (Diprivan -) 1,000,000 mcg in 100 mls @ 2.449 mls/hr IVPB TITR [facility]; Protocol Last Admin: 01/28/20 04:51 Dose: 32.66 mcg/kg/min, 16 mls/hr Documented by: Fentanyl (Sublimaze Ivpb) 500 mcg in 100 mls @ 16.329 mls/hr IVPB TITR [facility]; Protocol Last Admin: 01/28/20 09:41 Dose: 1.22 mcg/kg/hr, 19.922 mls/hr Documented by: Piperacillin Sod/Tazobactam (Sod 4.5 gm/ Dextrose) 100 mls @ 200 mls/hr IVPB Q6H-IV [facility]; Protocol Last Admin: 01/28/20 21:48 Dose: 200 mls/hr Documented by: Sodium Chloride (Normal Saline -) 1,000 mls @ 75 mls/hr IV ASDIR [facility] Last Admin: 01/28/20 18:22 Dose: 75 mls/hr Documented by: Mupirocin (Bactroban Ointment (For Decolonization) -) 1 applic NS BID [facility] Stop: 01/30/20 00:14 Last Admin: 01/28/20 21:48 Dose: 1 applic Documented by: Tetrahydrozoline HCl (Visine -) 1 drop OU QID PRN PRN Reason: DRY EYES Last Admin: 01/27/20 23:31 Dose: 1 drop Documented by: ASSESSMENT AND PLAN: Acute Hypoxic and Hypercapneic Respiratory Failure Pneumonia suspect Aspiration Sepsis Lactic Acidosis r/o [facility] Parkinsons Supranuclear Palsy - Will do vacation sedation - When awake SBT - titrate Fio2, PEEP to keep Spo2 >90% - continue Zosyn - ID recs appreciated - f/u cultures - monitor urine output, creatinine - Will hold TF before extubation - DVT/GI prophylaxis - ICU monitoring Dispo: family update on a patient status and possible extubation today Carol Thomas ACNP [id number]
[2020-01-28] MEDS: SODIUM CHLORIDE 1,000 ML IV SCH (18:22)
[2020-01-28] MEDS: CHLORHEXIDINE GLUCONATE 4% CLEANSER FOR DECOLONIZATION TP SCH (21:49)
[2020-01-28] MEDS ORDERED: FUROSEMIDE 40 MG/4 ML INJECTABLE VIAL IVPUSH ONE (23:07)
[2020-01-29] MEDS: PROPOFOL 1,000,000 MCG/100 ML VIAL IVPB SCH (03:19)
[2020-01-29] MEDS: PIPERACILLIN/TAZOB 4.5 GM 4.5 GM in DEXTROSE 5%-WATER 100 ML IVPB SCH ×4 (05:00→21:11)
[2020-01-29] MEDS ORDERED: PIPERACILLIN/TAZOBACTAM 4.5 GM VIAL IVPB ONE ×4 (05:45→20:28)
[2020-01-29] MEDS ORDERED: DEXTROSE 5%-WATER 100 ML IVPB ONE ×4 (05:45→20:28)
[2020-01-29 07:06] LABS: BASO % 0.4 % (0-2.0); EOS % 0.6 % (0-4.5); HEMATOCRIT 37.6 % (35.4-49); HEMOGLOBIN 12.5 GM/dL (11.7-16.9); LYMPH % 14.1 % (8-40); MCH 30.6 pg (25.7-33.7); MCHC 33.3 g/dl (32.0-35.9); MEAN CELL VOLUME 91.6 fl (80-96); MEAN PLT VOLUME 8.1 fl (7.5-11.1); MONO % 9.8 % (3.8-10.2); NEUT % 75.1 % (42.8-82.8); PLATELET COUNT 323 K/MM3 (134-434); RBC 4.11 M/mm3 (4.00-5.60); RDW 14.9 % (11.9-15.9); WHITE BLOOD COUNT 4.8 K/mm3 (4.0-10.0)
[2020-01-29] MEDS: ALBUTEROL SO4 0.5 % INH SOLN 2.5 MG/0.5 ML VIAL.NEB. NEB PRN ×2 (07:09→20:35)
[2020-01-29 07:24] LABS: ALBUMIN 1.9 g/dl (3.4-5.0); BILIRUBIN,TOTAL 0.6 mg/dL (0.2-1); BLOOD UREA NITROGEN 9.1 mg/dL (7-18); CREATININE 0.5 mg/dL (0.55-1.3); MAGNESIUM 2.1 mg/dL (1.8-2.4); PHOSPHOROUS 2.9 mg/dL (2.5-4.9); POTASSIUM 3.2 mmol/L (3.5-5.1); TOT PROT 5.7 g/dl (6.4-8.2)
[2020-01-29] MEDS: KCL 10 MEQ IVPB 10 MEQ/100 ML INFUS.BAG IVPB SCH ×2 (07:40→08:45)
[2020-01-29] MEDS: MUPIROCIN 2% TOPICAL OINTMENT FOR DECOLONIZATION NS SCH ×2 (09:52→21:11)
[2020-01-29] MEDS: AMINO ACIDS/PROTEIN HYDROLYS 30 ML LIQUID.PKT PO SCH (09:52)
[2020-01-29] MEDS: TETRAHYDROZOLINE HCL EYE DROPS OU PRN ×2 (10:41→17:22)
[2020-01-29] MEDS: ENOXAPARIN NA (PORCINE) 40 MG/0.4 ML DISP.SYRIN SQ SCH (10:41)
--- NOTE | 2020-01-29 10:48 | PN ---
Progress Note, Physician - Current Medication List Current Medications: Active Medications Acetaminophen (Tylenol Oral Solution -) 650 mg GT Q4H PRN PRN Reason: FEVER Acetylcysteine (Mucomyst 20 Oral / Inh Use Only*) 200 mg NEB RQ4H [facility] Albuterol Sulfate (Ventolin 0.5% -) 1 amp NEB Q4H PRN PRN Reason: SHORT OF BREATH/WHEEZING Last Admin: 01/29/20 07:09 Dose: 1 amp Documented by: Amino Acids (Prosource No Carb Liquid Pkt) 30 ml PO DAILY [facility] Last Admin: 01/29/20 09:52 Dose: 30 ml Documented by: Chlorhexidine Gluconate (Hibiclens For Decolonization -) 1 applic TP HS [facility] Last Admin: 01/28/20 21:49 Dose: 1 applic Documented by: Enoxaparin Sodium (Lovenox -) 40 mg SQ DAILY [facility] Last Admin: 01/29/20 10:41 Dose: 40 mg Documented by: Propofol (Diprivan -) 1,000,000 mcg in 100 mls @ 2.449 mls/hr IVPB TITR [facility]; Protocol Last Titration: 01/29/20 07:36 Dose: 0 mcg/kg/min, 0 mls/hr Documented by: Fentanyl (Sublimaze Ivpb) 500 mcg in 100 mls @ 16.329 mls/hr IVPB TITR [facility]; Protocol Last Titration: 01/29/20 07:35 Dose: 0 mcg/kg/hr, 0 mls/hr Documented by: Piperacillin Sod/Tazobactam (Sod 4.5 gm/ Dextrose) 100 mls @ 200 mls/hr IVPB Q6H-IV [facility]; Protocol Last Admin: 01/29/20 09:52 Dose: 200 mls/hr Documented by: Sodium Chloride (Normal Saline -) 1,000 mls @ 75 mls/hr IV ASDIR [facility] Last Admin: 01/28/20 18:22 Dose: 75 mls/hr Documented by: Mupirocin (Bactroban Ointment (For Decolonization) -) 1 applic NS BID [facility] Stop: 01/30/20 00:14 Last Admin: 01/29/20 09:52 Dose: 1 applic Documented by: Tetrahydrozoline HCl (Visine -) 1 drop OU QID PRN PRN Reason: DRY EYES Last Admin: 01/29/20 10:41 Dose: 1 drop Documented by: - Objective Vital Signs: Vital Signs Temperature 98.8 F 01/29/20 08:00 Pulse Rate 96 H 01/29/20 10:00 Respiratory Rate 30 H 01/29/20 10:00 Blood Pressure 128/77 01/29/20 10:00 O2 Sat by Pulse Oximetry (%) 96 01/29/20 10:00 Cardiovascular: Yes: S1, S2 Respiratory: Yes: On Venti-Mask, Rhonchi Gastrointestinal: Yes: Normal Bowel Sounds, Soft Labs: CBC, BMP 01/29/20 05:30 01/29/20 05:30 INR, PTT INR 1.10 (0.83-1.09) H 01/25/20 05:35 Problem List - Problems (1) Respiratory failure Code(s): J96.90 - RESPIRATORY FAILURE, UNSP, UNSP W HYPOXIA OR HYPERCAPNIA Qualifiers: Chronicity: acute Respiratory failure complication: hypoxia Qualified Code(s): J96.01 - Acute respiratory failure with hypoxia (2) Pneumonia Code(s): J18.9 - PNEUMONIA, UNSPECIFIED ORGANISM Qualifiers: Pneumonia type: due to unspecified organism Laterality: bilateral Lung location: unspecified part of lung Qualified Code(s): J18.9 - Pneumonia, unspecified organism (3) Parkinson disease Code(s): G20 - PARKINSON'S DISEASE (4) Sepsis Code(s): A41.9 - SEPSIS, UNSPECIFIED ORGANISM Qualifiers: Acute respiratory failure type: with hypoxia Severe sepsis shock status: without septic shock Assessment/Plan - Problems (1) Pneumonia Assessment/Plan: -ID consult -IV abx -Serial CXR's -Pulmonary on board -Bronchodilators -off vent -COVID 19 PCR negative -Cultures: Microbiology 01/27/20 07:00 Sputum - Endotrachea Suction/Ventilator Gram Stain - Final 01/25/20 14:00 Sputum - Endotrachea Suction/Ventilator Gram Stain - Final 01/25/20 14:00 Sputum - Endotrachea Suction/Ventilator Sputum Culture - Final Pseudomonas Aeruginosa Staphylococcus Aureus 01/24/20 23:05 Blood - Peripheral Venous Blood Culture - Preliminary NO GROWTH OBTAINED AFTER 48 HOURS, INCUBATION TO CONTINUE FOR 3 DAYS. 01/24/20 23:05 Blood - Peripheral Venous Blood Culture - Preliminary NO GROWTH OBTAINED AFTER 48 HOURS, INCUBATION TO CONTINUE FOR 3 DAYS. 01/24/20 23:15 Urine - Urine - Catheterized Urine Culture - Final NO GROWTH OBTAINED Problems reviewed: Yes Code(s): J18.9 - PNEUMONIA, UNSPECIFIED ORGANISM Qualifiers: Pneumonia type: due to unspecified organism Laterality: bilateral Lung location: unspecified part of lung Qualified Code(s): J18.9 - Pneumonia, unspecified organism (2) Respiratory failure Assessment/Plan: -Extubated -Suctioning Problems reviewed: Yes Code(s): J96.90 - RESPIRATORY FAILURE, UNSP, UNSP W HYPOXIA OR HYPERCAPNIA Qualifiers: Chronicity: acute Respiratory failure complication: hypoxia Qualified Code(s): J96.01 - Acute respiratory failure with hypoxia (3) Functional quadriplegia Problems reviewed: Yes Code(s): R53.2 - FUNCTIONAL QUADRIPLEGIA (4) Parkinson disease Problems reviewed: Yes Code(s): G20 - PARKINSON'S DISEASE (5) Supranuclear palsy Assessment/Plan: -Seen by neurology Problems reviewed: Yes Code(s): G23.1 - PROGRESSIVE SUPRANUCLEAR OPHTHALMOPLEGIA
[2020-01-29] MEDS: CARBIDOPA/LEVODOPA 25/250 TABLET (FP) PO SCH ×3 (16:17→21:12)
--- NOTE | 2020-01-29 17:23 | PN ---
Progress Note (short form) - Note Progress Note: PULM/CCM Pt seen & examined in the ICU. Remains extubated. Pt is back to baseline. Active Medications Acetaminophen (Tylenol Oral Solution -) 650 mg GT Q4H PRN PRN Reason: FEVER Acetylcysteine (Mucomyst 20 Oral / Inh Use Only*) 200 mg NEB RQ4H [facility] Albuterol Sulfate (Ventolin 0.5% -) 1 amp NEB Q4H PRN PRN Reason: SHORT OF BREATH/WHEEZING Last Admin: 01/29/20 07:09 Dose: 1 amp Documented by: Amino Acids (Prosource No Carb Liquid Pkt) 30 ml PO DAILY [facility] Last Admin: 01/29/20 09:52 Dose: 30 ml Documented by: Carbidopa/Levodopa (Sinemet 25/250 -) 1 each PO 1600,1900,2200 [facility] Last Admin: 01/29/20 16:17 Dose: 1 each Documented by: Carbidopa/Levodopa (Sinemet 25/250 -) 1 each PO 0700,1000,1300 [facility] Chlorhexidine Gluconate (Hibiclens For Decolonization -) 1 applic TP HS [facility] Last Admin: 01/28/20 21:49 Dose: 1 applic Documented by: Enoxaparin Sodium (Lovenox -) 40 mg SQ DAILY [facility] Last Admin: 01/29/20 10:41 Dose: 40 mg Documented by: Propofol (Diprivan -) 1,000,000 mcg in 100 mls @ 2.449 mls/hr IVPB TITR [facility]; Protocol Last Titration: 01/29/20 07:36 Dose: 0 mcg/kg/min, 0 mls/hr Documented by: Fentanyl (Sublimaze Ivpb) 500 mcg in 100 mls @ 16.329 mls/hr IVPB TITR [facility]; Protocol Last Titration: 01/29/20 07:35 Dose: 0 mcg/kg/hr, 0 mls/hr Documented by: Piperacillin Sod/Tazobactam (Sod 4.5 gm/ Dextrose) 100 mls @ 200 mls/hr IVPB Q6H-IV [facility]; Protocol Last Admin: 01/29/20 14:24 Dose: 200 mls/hr Documented by: Sodium Chloride (Normal Saline -) 1,000 mls @ 75 mls/hr IV ASDIR [facility] Last Admin: 01/28/20 18:22 Dose: 75 mls/hr Documented by: Mupirocin (Bactroban Ointment (For Decolonization) -) 1 applic NS BID [facility] Stop: 01/30/20 00:14 Last Admin: 01/29/20 09:52 Dose: 1 applic Documented by: Tetrahydrozoline HCl (Visine -) 1 drop OU QID PRN PRN Reason: DRY EYES Last Admin: 01/29/20 10:41 Dose: 1 drop Documented by: Vital Signs Period Temp Pulse Resp BP Sys/Villegas Pulse Ox Last 24 Hr 98.4 F-99.0 F 78-105 22-35 122-140/68-85 94-100 Intake & Output 01/26/20 01/27/20 01/28/20 01/29/20 23:59 23:59 23:59 23:59 Intake Total 5494 4031 3576 100 Output Total 3010 3405 2350 4950 Balance 2484 626 1226 -4850 Weight 69.5 kg 68.946 kg 72.711 kg 67.495 kg GEN: wasted 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 Impression: No significant change since 01/27/2020. ASSESS: Acute Hypoxic and Hypercapneic Respiratory Failure Pneumonia suspect Aspiration Sepsis Lactic Acidosis r/o [place] Parkinsons Supranuclear Palsy PLAN: - Supp FiO2 for a goal SpO2 > 92% - Aggressive CPT - Bronchodilators - continue Zosyn - ID recs appreciated - f/u cultures - monitor urine output, creatinine - TFs - DVT/GI prophylaxis - D/c to [facility] DISPO: FULL CODE MANJULA WHITT-[facility] ICU PULM/CCM 3231
[2020-01-29] MEDS: SODIUM CHLORIDE 1,000 ML IV SCH (19:07)
[2020-01-29] MEDS: ACETYLCYSTEINE 20% 200MG/ML 4 ML VIAL *FOR ORAL / INH USE ONLY NEB SCH (20:35)
[2020-01-29] MEDS: CHLORHEXIDINE GLUCONATE 4% CLEANSER FOR DECOLONIZATION TP SCH (21:12)
[2020-01-30] MEDS: ACETYLCYSTEINE 20% 200MG/ML 4 ML VIAL *FOR ORAL / INH USE ONLY NEB SCH ×6 (00:44→20:21)
[2020-01-30] MEDS: ALBUTEROL SO4 0.5 % INH SOLN 2.5 MG/0.5 ML VIAL.NEB. NEB PRN ×5 (00:45→20:22)
[2020-01-30] MEDS ORDERED: PIPERACILLIN/TAZOBACTAM 4.5 GM VIAL IVPB ONE ×4 (00:55→20:42)
[2020-01-30] MEDS ORDERED: DEXTROSE 5%-WATER 100 ML IVPB ONE ×4 (00:56→20:43)
[2020-01-30] MEDS: PIPERACILLIN/TAZOB 4.5 GM 4.5 GM in DEXTROSE 5%-WATER 100 ML IVPB SCH ×4 (02:00→21:51)
[2020-01-30] MEDS ORDERED: SODIUM CHLORIDE NASAL SPRAY 44 ML BOTTLE NS PRN (06:54)
[2020-01-30 06:59] LABS: HEMATOCRIT 39.4 % (35.4-49); MCH 30.3 pg (25.7-33.7); MCHC 33.1 g/dl (32.0-35.9); MEAN CELL VOLUME 91.4 fl (80-96); PLATELET COUNT 356 K/MM3 (134-434); RBC 4.31 M/mm3 (4.00-5.60); RDW 14.8 % (11.9-15.9); WHITE BLOOD COUNT 5.1 K/mm3 (4.0-10.0)
[2020-01-30] MEDS: CARBIDOPA/LEVODOPA 25/250 TABLET (FP) PO SCH ×6 (07:10→21:58)
[2020-01-30 07:22] LABS: BLOOD UREA NITROGEN 13.7 mg/dL (7-18); CALCIUM 8.2 mg/dL (8.5-10.1); CREATININE 0.5 mg/dL (0.55-1.3); MAGNESIUM 2.3 mg/dL (1.8-2.4); PHOSPHOROUS 2.7 mg/dL (2.5-4.9); POTASSIUM 3.5 mmol/L (3.5-5.1)
[2020-01-30] MEDS: ENOXAPARIN NA (PORCINE) 40 MG/0.4 ML DISP.SYRIN SQ SCH (09:11)
[2020-01-30] MEDS: AMINO ACIDS/PROTEIN HYDROLYS 30 ML LIQUID.PKT PO SCH (09:34)
--- NOTE | 2020-01-30 11:37 | PN ---
Progress Note, Physician History of Present Illness: extubated stable on face mask - Current Medication List Current Medications: Active Medications Acetaminophen (Tylenol Oral Solution -) 650 mg GT Q4H PRN PRN Reason: FEVER Acetylcysteine (Mucomyst 20 Oral / Inh Use Only*) 200 mg NEB RQ4H [facility] Last Admin: 01/30/20 11:35 Dose: 200 mg Documented by: Albuterol Sulfate (Ventolin 0.5% -) 1 amp NEB Q4H PRN PRN Reason: SHORT OF BREATH/WHEEZING Last Admin: 01/30/20 11:34 Dose: 1 amp Documented by: Amino Acids (Prosource No Carb Liquid Pkt) 30 ml PO DAILY [facility] Last Admin: 01/30/20 09:34 Dose: 30 ml Documented by: Carbidopa/Levodopa (Sinemet 25/250 -) 1 each PO 1600,1900,2200 [facility] Last Admin: 01/29/20 21:12 Dose: 1 each Documented by: Carbidopa/Levodopa (Sinemet 25/250 -) 1 each PO 0700,1000,1300 [facility] Last Admin: 01/30/20 09:34 Dose: 1 each Documented by: Chlorhexidine Gluconate (Hibiclens For Decolonization -) 1 applic TP HS [facility]RITA Last Admin: 01/29/20 21:12 Dose: 1 applic Documented by: Enoxaparin Sodium (Lovenox -) 40 mg SQ DAILY [facility] Last Admin: 01/30/20 09:11 Dose: 40 mg Documented by: Propofol (Diprivan -) 1,000,000 mcg in 100 mls @ 2.449 mls/hr IVPB TITR [facility]; Protocol Last Titration: 01/29/20 07:36 Dose: 0 mcg/kg/min, 0 mls/hr Documented by: Fentanyl (Sublimaze Ivpb) 500 mcg in 100 mls @ 16.329 mls/hr IVPB TITR [facility]; Protocol Last Titration: 01/29/20 07:35 Dose: 0 mcg/kg/hr, 0 mls/hr Documented by: Piperacillin Sod/Tazobactam (Sod 4.5 gm/ Dextrose) 100 mls @ 200 mls/hr IVPB Q6H-IV [facility]; Protocol Last Admin: 01/30/20 09:11 Dose: 200 mls/hr Documented by: Sodium Chloride (Normal Saline -) 1,000 mls @ 75 mls/hr IV ASDIR [facility] Last Admin: 01/29/20 19:07 Dose: 75 mls/hr Documented by: Sodium Chloride ([place] Nasal [place] -) 2 spray NS TID PRN PRN Reason: NASAL CONGESTION Tetrahydrozoline HCl (Visine -) 1 drop OU QID PRN PRN Reason: DRY EYES Last Admin: 01/29/20 17:22 Dose: 1 drop Documented by: - Objective Vital Signs: Vital Signs Temperature 98.0 F 01/30/20 02:00 Pulse Rate 63 01/30/20 11:33 Respiratory Rate 29 H 01/30/20 10:00 Blood Pressure 124/78 01/30/20 10:00 O2 Sat by Pulse Oximetry (%) 99 01/30/20 11:33 Constitutional: Yes: No Distress, Calm Cardiovascular: Yes: S1, S2 Respiratory: Yes: Poor Air Entry, Other (on face mask) Gastrointestinal: Yes: Normal Bowel Sounds, Soft Musculoskeletal: Yes: WNL Extremities: Yes: WNL Neurological: Yes: Alert, Other Labs: CBC, BMP 01/30/20 06:05 01/30/20 06:05 INR, PTT INR 1.10 (0.83-1.09) H 01/25/20 05:35 - ....Imaging Chest X-ray: Report Reviewed, Image Reviewed Assessment/Plan this patient with multiple medical issues coming in with ams and resp failure and now intubated Acute Hypoxic and Hypercapneic Respiratory Failure Pneumonia suspect Aspiration Sepsis Lactic Acidosis Parkinsons Supranuclear Palsy plan continue icu care iv abx organisms noted vent mgmt close watch cc 40 min
--- NOTE | 2020-01-30 11:38 | PN ---
Progress Note, Physician History of Present Illness: stable remains extubated on face mask - Current Medication List Current Medications: Active Medications Acetaminophen (Tylenol Oral Solution -) 650 mg GT Q4H PRN PRN Reason: FEVER Acetylcysteine (Mucomyst 20 Oral / Inh Use Only*) 200 mg NEB RQ4H [facility] Last Admin: 01/30/20 11:35 Dose: 200 mg Documented by: Albuterol Sulfate (Ventolin 0.5% -) 1 amp NEB Q4H PRN PRN Reason: SHORT OF BREATH/WHEEZING Last Admin: 01/30/20 11:34 Dose: 1 amp Documented by: Amino Acids (Prosource No Carb Liquid Pkt) 30 ml PO DAILY [facility] Last Admin: 01/30/20 09:34 Dose: 30 ml Documented by: Carbidopa/Levodopa (Sinemet 25/250 -) 1 each PO 1600,1900,2200 [facility] Last Admin: 01/29/20 21:12 Dose: 1 each Documented by: Carbidopa/Levodopa (Sinemet 25/250 -) 1 each PO 0700,1000,1300 [facility] Last Admin: 01/30/20 09:34 Dose: 1 each Documented by: Chlorhexidine Gluconate (Hibiclens For Decolonization -) 1 applic TP HS [facility]RITA Last Admin: 01/29/20 21:12 Dose: 1 applic Documented by: Enoxaparin Sodium (Lovenox -) 40 mg SQ DAILY [facility] Last Admin: 01/30/20 09:11 Dose: 40 mg Documented by: Propofol (Diprivan -) 1,000,000 mcg in 100 mls @ 2.449 mls/hr IVPB TITR [facility]RITA; Protocol Last Titration: 01/29/20 07:36 Dose: 0 mcg/kg/min, 0 mls/hr Documented by: Fentanyl (Sublimaze Ivpb) 500 mcg in 100 mls @ 16.329 mls/hr IVPB TITR [facility]RITA; Protocol Last Titration: 01/29/20 07:35 Dose: 0 mcg/kg/hr, 0 mls/hr Documented by: Piperacillin Sod/Tazobactam (Sod 4.5 gm/ Dextrose) 100 mls @ 200 mls/hr IVPB Q6H-IV [facility]ITA; Protocol Last Admin: 01/30/20 09:11 Dose: 200 mls/hr Documented by: Sodium Chloride (Normal Saline -) 1,000 mls @ 75 mls/hr IV ASDIR [facility]ITA Last Admin: 01/29/20 19:07 Dose: 75 mls/hr Documented by: Sodium Chloride ([place] Nasal [place] -) 2 spray NS TID PRN PRN Reason: NASAL CONGESTION Tetrahydrozoline HCl (Visine -) 1 drop OU QID PRN PRN Reason: DRY EYES Last Admin: 01/29/20 17:22 Dose: 1 drop Documented by: - Objective Vital Signs: Vital Signs Temperature 98.0 F 01/30/20 02:00 Pulse Rate 63 01/30/20 11:33 Respiratory Rate 29 H 01/30/20 10:00 Blood Pressure 124/78 01/30/20 10:00 O2 Sat by Pulse Oximetry (%) 99 01/30/20 11:33 Constitutional: Yes: No Distress Cardiovascular: Yes: S1, S2 Respiratory: Yes: Regular, Other (on bipap) Gastrointestinal: Yes: Normal Bowel Sounds, Soft Musculoskeletal: Yes: WNL Extremities: Yes: WNL Neurological: Yes: Alert Labs: CBC, BMP 01/30/20 06:05 01/30/20 06:05 INR, PTT INR 1.10 (0.83-1.09) H 01/25/20 05:35 Assessment/Plan this patient with multiple medical issues coming in with ams and resp failure and now intubated Acute Hypoxic and Hypercapneic Respiratory Failure Pneumonia suspect Aspiration Sepsis Lactic Acidosis Parkinsons Supranuclear Palsy plan continue icu care iv abx organisms noted resp support close watch cc 40 min
--- NOTE | 2020-01-30 13:14 | PN ---
Teaching Attending Note Name of Resident: Terry Nash ATTENDING PHYSICIAN STATEMENT I saw and evaluated the patient. I reviewed the resident's note and discussed the case with the resident. I agree with the resident's findings and plan as documented. SUBJECTIVE: Patient seen and examined in the ICU. Remains extubated on HFOT. Lethargic but arousbale. CT intact. No air leak. Intake & Output 01/27/20 01/28/20 01/29/20 01/30/20 23:59 23:59 23:59 23:59 Intake Total 4031 3576 300 850 Output Total 3405 2350 6150 0 Balance 626 1226 -5850 850 Weight 152 lb 160 lb 4.8 oz 148 lb 12.8 oz 146 lb 14.4 oz Last Vital Signs Temp Pulse Resp BP Pulse Ox 98.0 F 63 29 H 124/78 99 01/30/20 02:00 01/30/20 11:33 01/30/20 10:00 01/30/20 10:00 01/30/20 11:33 Active Medications Acetaminophen (Tylenol Oral Solution -) 650 mg GT Q4H PRN PRN Reason: FEVER Acetylcysteine (Mucomyst 20 Oral / Inh Use Only*) 200 mg NEB RQ4H [facility] Last Admin: 01/30/20 11:35 Dose: 200 mg Documented by: Albuterol Sulfate (Ventolin 0.5% -) 1 amp NEB Q4H PRN PRN Reason: SHORT OF BREATH/WHEEZING Last Admin: 01/30/20 11:34 Dose: 1 amp Documented by: Amino Acids (Prosource No Carb Liquid Pkt) 30 ml PO DAILY [facility] Last Admin: 01/30/20 09:34 Dose: 30 ml Documented by: Carbidopa/Levodopa (Sinemet 25/250 -) 1 each PO 1600,1900,2200 [facility] Last Admin: 01/29/20 21:12 Dose: 1 each Documented by: Carbidopa/Levodopa (Sinemet 25/250 -) 1 each PO 0700,1000,1300 [facility]ITA Last Admin: 01/30/20 09:34 Dose: 1 each Documented by: Chlorhexidine Gluconate (Hibiclens For Decolonization -) 1 applic TP HS AMRITA Last Admin: 01/29/20 21:12 Dose: 1 applic Documented by: Enoxaparin Sodium (Lovenox -) 40 mg SQ DAILY [facility] Last Admin: 01/30/20 09:11 Dose: 40 mg Documented by: Propofol (Diprivan -) 1,000,000 mcg in 100 mls @ 2.449 mls/hr IVPB TITR AMRITA; Protocol Last Titration: 01/29/20 07:36 Dose: 0 mcg/kg/min, 0 mls/hr Documented by: Fentanyl (Sublimaze Ivpb) 500 mcg in 100 mls @ 16.329 mls/hr IVPB TITR AMRITA; Protocol Last Titration: 01/29/20 07:35 Dose: 0 mcg/kg/hr, 0 mls/hr Documented by: Piperacillin Sod/Tazobactam (Sod 4.5 gm/ Dextrose) 100 mls @ 200 mls/hr IVPB Q6H-IV [facility]RITA; Protocol Last Admin: 01/30/20 09:11 Dose: 200 mls/hr Documented by: Sodium Chloride (Normal Saline -) 1,000 mls @ 75 mls/hr IV ASDIR [facility] Last Admin: 01/29/20 19:07 Dose: 75 mls/hr Documented by: Sodium Chloride ([place] Nasal [place] -) 2 spray NS TID PRN PRN Reason: NASAL CONGESTION Tetrahydrozoline HCl (Visine -) 1 drop OU QID PRN PRN Reason: DRY EYES Last Admin: 01/29/20 17:22 Dose: 1 drop Documented by: GEN: wasted elderly man, NAD on HFOT PULM: Few scattered rhonchi CV: S1, S2, RR ABD: + BS, S/S N/T N/D X4Q EXT: + Pulses, WWP X4, (-) edema [employer]PER[employer]: Lethargic, non-focal Laboratory Results - last 24 hr 01/30/20 01/30/20 06:05 06:05 WBC 5.1 RBC 4.31 Hgb 13.0 Hct 39.4 MCV 91.4 MCH 30.3 MCHC 33.1 RDW 14.8 Plt Count 356 MPV 8.0 Sodium 142 Potassium 3.5 Chloride 101 Carbon Dioxide 33 H Anion Gap 8 BUN 13.7 Creatinine 0.5 L Est GFR (CKD-EPI)AfAm 130.88 Est GFR (CKD-EPI)NonAf 112.92 Random Glucose 77 Calcium 8.2 L Phosphorus 2.7 Magnesium 2.3 ASSESS: Acute Hypoxic and Hypercapneic Respiratory Failure Pneumonia suspect Aspiration Sepsis Lactic Acidosis r/o [place] Parkinsons Supranuclear Palsy PLAN: - HFOT - Aggressive CPT - Bronchodilators - Zosyn per ID - f/u final cultures - monitor urine output, creatinine - Aspiration precautions - DVT/GI prophylaxis - Floor Dr Scott
--- NOTE | 2020-01-30 14:05 | PN ---
Progress Note, Physician - Current Medication List Current Medications: Active Medications Acetaminophen (Tylenol Oral Solution -) 650 mg GT Q4H PRN PRN Reason: FEVER Acetylcysteine (Mucomyst 20 Oral / Inh Use Only*) 200 mg NEB RQ4H [facility] Last Admin: 01/30/20 11:35 Dose: 200 mg Documented by: Albuterol Sulfate (Ventolin 0.5% -) 1 amp NEB Q4H PRN PRN Reason: SHORT OF BREATH/WHEEZING Last Admin: 01/30/20 11:34 Dose: 1 amp Documented by: Amino Acids (Prosource No Carb Liquid Pkt) 30 ml PO DAILY [facility] Last Admin: 01/30/20 09:34 Dose: 30 ml Documented by: Carbidopa/Levodopa (Sinemet 25/250 -) 1 each PO 1600,1900,2200 [facility] Last Admin: 01/29/20 21:12 Dose: 1 each Documented by: Carbidopa/Levodopa (Sinemet 25/250 -) 1 each PO 0700,1000,1300 [facility] Last Admin: 01/30/20 09:34 Dose: 1 each Documented by: Chlorhexidine Gluconate (Hibiclens For Decolonization -) 1 applic TP HS [facility]ITA Last Admin: 01/29/20 21:12 Dose: 1 applic Documented by: Enoxaparin Sodium (Lovenox -) 40 mg SQ DAILY [facility] Last Admin: 01/30/20 09:11 Dose: 40 mg Documented by: Propofol (Diprivan -) 1,000,000 mcg in 100 mls @ 2.449 mls/hr IVPB TITR [facility]RITA; Protocol Last Titration: 01/29/20 07:36 Dose: 0 mcg/kg/min, 0 mls/hr Documented by: Fentanyl (Sublimaze Ivpb) 500 mcg in 100 mls @ 16.329 mls/hr IVPB TITR [facility]RITA; Protocol Last Titration: 01/29/20 07:35 Dose: 0 mcg/kg/hr, 0 mls/hr Documented by: Piperacillin Sod/Tazobactam (Sod 4.5 gm/ Dextrose) 100 mls @ 200 mls/hr IVPB Q6H-IV [facility]RITA; Protocol Last Admin: 01/30/20 09:11 Dose: 200 mls/hr Documented by: Sodium Chloride (Normal Saline -) 1,000 mls @ 75 mls/hr IV ASDIR [facility] Last Admin: 01/29/20 19:07 Dose: 75 mls/hr Documented by: Sodium Chloride ([place] Nasal [place] -) 2 spray NS TID PRN PRN Reason: NASAL CONGESTION Tetrahydrozoline HCl (Visine -) 1 drop OU QID PRN PRN Reason: DRY EYES Last Admin: 01/29/20 17:22 Dose: 1 drop Documented by: - Objective Vital Signs: Vital Signs Temperature 98.0 F 01/30/20 02:00 Pulse Rate 63 01/30/20 11:33 Respiratory Rate 29 H 01/30/20 10:00 Blood Pressure 124/78 01/30/20 10:00 O2 Sat by Pulse Oximetry (%) 99 01/30/20 11:33 Cardiovascular: Yes: S1, S2 Respiratory: Yes: On Venti-Mask Gastrointestinal: Yes: Normal Bowel Sounds, Soft Labs: CBC, BMP 01/30/20 06:05 01/30/20 06:05 INR, PTT INR 1.10 (0.83-1.09) H 01/25/20 05:35 Problem List - Problems (1) Respiratory failure Code(s): J96.90 - RESPIRATORY FAILURE, UNSP, UNSP W HYPOXIA OR HYPERCAPNIA Qualifiers: Chronicity: acute Respiratory failure complication: hypoxia Qualified Code(s): J96.01 - Acute respiratory failure with hypoxia (2) Pneumonia Code(s): J18.9 - PNEUMONIA, UNSPECIFIED ORGANISM Qualifiers: Pneumonia type: due to unspecified organism Laterality: bilateral Lung location: unspecified part of lung Qualified Code(s): J18.9 - Pneumonia, unspecified organism (3) Parkinson disease Code(s): G20 - PARKINSON'S DISEASE (4) Sepsis Code(s): A41.9 - SEPSIS, UNSPECIFIED ORGANISM Qualifiers: Acute respiratory failure type: with hypoxia Severe sepsis shock status: without septic shock Assessment/Plan - Problems (1) Pneumonia Assessment/Plan: -ID consult -IV abx -Serial CXR's -Pulmonary on board -Bronchodilators -off vent -COVID 19 PCR negative -Cultures: Microbiology 01/27/20 07:00 Sputum - Endotrachea Suction/Ventilator Gram Stain - Final 01/25/20 14:00 Sputum - Endotrachea Suction/Ventilator Gram Stain - Final 01/25/20 14:00 Sputum - Endotrachea Suction/Ventilator Sputum Culture - Final Pseudomonas Aeruginosa Staphylococcus Aureus 01/24/20 23:05 Blood - Peripheral Venous Blood Culture - Preliminary NO GROWTH OBTAINED AFTER 48 HOURS, INCUBATION TO CONTINUE FOR 3 DAYS. 01/24/20 23:05 Blood - Peripheral Venous Blood Culture - Preliminary NO GROWTH OBTAINED AFTER 48 HOURS, INCUBATION TO CONTINUE FOR 3 DAYS. 01/24/20 23:15 Urine - Urine - Catheterized Urine Culture - Final NO GROWTH OBTAINED Problems reviewed: Yes Code(s): J18.9 - PNEUMONIA, UNSPECIFIED ORGANISM Qualifiers: Pneumonia type: due to unspecified organism Laterality: bilateral Lung location: unspecified part of lung Qualified Code(s): J18.9 - Pneumonia, unspecified organism (2) Respiratory failure Assessment/Plan: -Extubated -Suctioning Problems reviewed: Yes Code(s): J96.90 - RESPIRATORY FAILURE, UNSP, UNSP W HYPOXIA OR HYPERCAPNIA Qualifiers: Chronicity: acute Respiratory failure complication: hypoxia Qualified Code(s): J96.01 - Acute respiratory failure with hypoxia (3) Functional quadriplegia Problems reviewed: Yes Code(s): R53.2 - FUNCTIONAL QUADRIPLEGIA (4) Pleural effusion Problems reviewed: Yes chest tube per icu team (5) Supranuclear palsy Assessment/Plan: -Seen by neurology Problems reviewed: Yes Code(s): G23.1 - PROGRESSIVE SUPRANUCLEAR OPHTHALMOPLEGIA
--- NOTE | 2020-01-30 15:46 | PN ---
Physical Exam: SUBJECTIVE: Patient seen and examined Patient was seen and examined in the ICU. The patient was noted to be extubated on high flow nasal canula. No acute distress noted. Patient at baseline is non verbal but able to use hand gestures to note understanding. No overnight events. OBJECTIVE: Vital Signs Period Temp Pulse Resp BP Sys/Villegas Pulse Ox Last 24 Hr 97.9 F-98.0 F 63-107 26-39 116-140/71-93 93-100 GENERAL: Patient is awake and in no acute distress. Able to use hand gesture to convey understanding. Eyes open bilaterally. HEAD: Normal with no signs of trauma. EYES: sclera anicteric, conjunctiva clear. No ptosis. ENT: Ears normal, nares patent, NECK: Trachea midline, supple. LUNGS: Coarse breath sounds bilaterally at the bases. HEART: Regular rate and rhythm, S1, S2 without murmur, rub or gallop. Chest tube [address] on the left side 4-5th intercostal space ABDOMEN: Soft, nontender, nondistended, normoactive bowel sounds, no guarding, no rebound, no hepatosplenomegaly, no masses. EXTREMITIES: 2+ pulses, warm, well-perfused, no edema. NEUROLOGICAL: Unable to assess at this time SKIN: Warm, dry, normal turgor, no rashes or lesions noted Laboratory Results - last 24 hr 01/30/20 01/30/20 06:05 06:05 WBC 5.1 RBC 4.31 Hgb 13.0 Hct 39.4 MCV 91.4 MCH 30.3 MCHC 33.1 RDW 14.8 Plt Count 356 MPV 8.0 Sodium 142 Potassium 3.5 Chloride 101 Carbon Dioxide 33 H Anion Gap 8 BUN 13.7 Creatinine 0.5 L Est GFR (CKD-EPI)AfAm 130.88 Est GFR (CKD-EPI)NonAf 112.92 Random Glucose 77 Calcium 8.2 L Phosphorus 2.7 Magnesium 2.3 Active Medications Generic Name Dose Route Start Last Admin Trade Name Freq PRN Reason Stop Dose Admin Acetaminophen 650 mg 01/27/20 17:27 Tylenol Oral Solution - GT Q4H PRN FEVER Acetylcysteine 200 mg 01/29/20 16:12 01/30/20 15:44 Mucomyst 20 Oral / Inh Use Only* NEB 200 mg RQ4H AMRITA Administration Albuterol Sulfate 1 amp 01/25/20 21:01 01/30/20 15:44 Ventolin 0.5% - NEB 1 amp Q4H PRN Administration SHORT OF BREATH/WHEEZING Amino Acids 30 ml 01/27/20 12:00 01/30/20 09:34 Prosource No Carb Liquid Pkt PO 30 ml DAILY [facility] Administration Carbidopa/Levodopa 1 each 01/29/20 16:00 01/29/20 21:12 Sinemet 25/250 - PO 1 each 1600,1900,2200 AMRITA Administration Carbidopa/Levodopa 1 each 01/30/20 07:00 01/30/20 09:34 Sinemet 25/250 - PO 1 each 0700,1000,1300 AM[facility]ITA Administration Chlorhexidine Gluconate 1 applic 01/25/20 22:00 01/29/20 21:12 Hibiclens For Decolonization - TP 1 applic HS [facility] Administration Enoxaparin Sodium 40 mg 01/25/20 10:00 01/30/20 09:11 Lovenox - SQ 40 mg DAILY [facility] Administration Propofol 1,000,000 mcg in 100 mls @ 2.449 mls/hr 01/24/20 22:45 01/29/20 07:36 Diprivan - IVPB 0 mcg/kg/min TITR [facility] 0 mls/hr Titration Protocol 5 MCG/KG/MIN Fentanyl 500 mcg in 100 mls @ 16.329 mls/hr 01/25/20 05:00 01/29/20 07:35 Sublimaze Ivpb IVPB 0 mcg/kg/hr TITR [facility]ITA 0 mls/hr Titration Protocol 1 MCG/KG/HR Piperacillin Sod/Tazobactam 100 mls @ 200 mls/hr 01/25/20 10:27 01/30/20 09:11 Sod 4.5 gm/ Dextrose IVPB 200 mls/hr Q6H-IV [facility] Administration Protocol Sodium Chloride 1,000 mls @ 75 mls/hr 01/27/20 17:27 01/29/20 19:07 Normal Saline - IV 75 mls/hr ASDIR [facility] Administration Sodium Chloride 2 spray 01/30/20 06:54 [place] Nasal [place] - NS TID PRN NASAL CONGESTION Tetrahydrozoline HCl 1 drop 01/27/20 18:51 01/29/20 17:22 Visine - OU 1 drop QID PRN Administration DRY EYES ASSESSMENT/PLAN: Assessment: Acute hypoxic and hypercapneic respiratory failure Aspiration PNA resulting in sepsis and lactic acidosis. Hx of Parkinson's Disease and Supranuclear palsy. S/p chest tube for pleural effusion/infiltrate Plan: Off sedation Currently on high flow nasal canula; continue pulmonary physiotherapy and bronchodilators Follow cultures (most recent shows Pseudomonas) Continue zosyn as directed by ID (01/24-) Continue to provide GI/DVT prophylaxis (on lovenox) Monitor I/O Trend WBC, BUN/Cr Will transfer patient to the floor for further management. ATTENDING PHYSICIAN STATEMENT I saw and evaluated the patient. I reviewed the resident's note and discussed the case with the resident. I agree with the resident's findings and plan as documented. SUBJECTIVE: OBJECTIVE: ASSESSMENT AND PLAN:
[2020-01-30] MEDS: SODIUM CHLORIDE 1,000 ML IV SCH (18:25)
[2020-01-30] MEDS: CHLORHEXIDINE GLUCONATE 4% CLEANSER FOR DECOLONIZATION TP SCH (21:58)
[2020-01-31] MEDS ORDERED: ALBUTEROL SO4 0.083% IH SOL 2.5 MG/3 ML VIAL.NEB. NEB ONE (00:18)
[2020-01-31] MEDS ORDERED: DEXTROSE 5%-WATER 100 ML IVPB ONE ×4 (01:24→21:07)
[2020-01-31] MEDS ORDERED: PIPERACILLIN/TAZOBACTAM 4.5 GM VIAL IVPB ONE ×4 (01:24→21:07)
[2020-01-31] MEDS: PIPERACILLIN/TAZOB 4.5 GM 4.5 GM in DEXTROSE 5%-WATER 100 ML IVPB SCH ×4 (03:14→21:35)
[2020-01-31] MEDS: ALBUTEROL SO4 0.5 % INH SOLN 2.5 MG/0.5 ML VIAL.NEB. NEB PRN ×6 (04:38→20:10)
[2020-01-31] MEDS: ACETYLCYSTEINE 20% 200MG/ML 4 ML VIAL *FOR ORAL / INH USE ONLY NEB SCH ×6 (04:38→20:10)
[2020-01-31 07:13] LABS: BASO % 0.1 % (0-2.0); EOS % 0.1 % (0-4.5); HEMATOCRIT 42.4 % (35.4-49); HEMOGLOBIN 13.9 GM/dL (11.7-16.9); LYMPH % 3.5 % (8-40); MCH 29.9 pg (25.7-33.7); MCHC 32.9 g/dl (32.0-35.9); MEAN CELL VOLUME 90.8 fl (80-96); MEAN PLT VOLUME 8.2 fl (7.5-11.1); MONO % 3.3 % (3.8-10.2); PLATELET COUNT 414 K/MM3 (134-434); RBC 4.66 M/mm3 (4.00-5.60); WHITE BLOOD COUNT 15.2 K/mm3 (4.0-10.0)
[2020-01-31] MEDS: CARBIDOPA/LEVODOPA 25/250 TABLET (FP) PO SCH ×7 (07:40→21:40)
[2020-01-31 07:46] LABS: ALBUMIN 2.2 g/dl (3.4-5.0); BILIRUBIN,TOTAL 0.8 mg/dL (0.2-1); CALCIUM 8.5 mg/dL (8.5-10.1); CREATININE 0.5 mg/dL (0.55-1.3); MAGNESIUM 2.5 mg/dL (1.8-2.4); PHOSPHOROUS 2.9 mg/dL (2.5-4.9); POTASSIUM 3.3 mmol/L (3.5-5.1); TOT PROT 6.5 g/dl (6.4-8.2)
[2020-01-31] MEDS ORDERED: RAPID SEQUENCE INTUBATION KIT NR ONE (07:52)
--- NOTE | 2020-01-31 08:12 | PROC ---
Intubation - Intubation Reason for Intubation: Respiratory Failure, Airway Protection Time of Intubation: 07:55 Intubation Method: orotracheal Blade used: Glidescope Tube Size (cm): 8.0 Tube position @ lip (cm): 22 Tube position confirmed by: CO2 detector, Breath sounds Breath Sounds after Intubation: equal Post Intubation Xray: Yes Remarks: Pt. with copious secretions in oropharynx. Difficult visualization with Mac 4. switched to Glidescope. BS=BL
[2020-01-31] MEDS ORDERED: MIDAZOLAM HCL 5 MG/1 ML Single Dose Vial IVPUSH ONE ×3 (08:23→23:42)
[2020-01-31] MEDS: AMINO ACIDS/PROTEIN HYDROLYS 30 ML LIQUID.PKT PO SCH (09:16)
[2020-01-31] MEDS: ENOXAPARIN NA (PORCINE) 40 MG/0.4 ML DISP.SYRIN SQ SCH (09:17)
[2020-01-31] MEDS: MIDAZOLAM IN 0.9 % SOD.CHLORID 100 MG/100 ML PLAST..BAG IVPB SCH (10:00)
[2020-01-31 12:30] LABS: ANISOCYTOSIS 0; MACROCYTOSIS 0; PLATELET ESTIMATE NORMAL
[2020-01-31] MEDS: methylPREDNISolone NA SUCC 40 MG/1 ML VIAL IVPUSH SCH ×2 (13:18→17:02)
--- NOTE | 2020-01-31 14:04 | PN ---
Progress Note, Physician History of Present Illness: events noted arrested now intubated - Current Medication List Current Medications: Active Medications Acetaminophen (Tylenol Oral Solution -) 650 mg GT Q4H PRN PRN Reason: FEVER Last Admin: 01/31/20 03:14 Dose: 650 mg Documented by: Acetylcysteine (Mucomyst 20 Oral / Inh Use Only*) 200 mg NEB RQ4H AMRITA Last Admin: 01/31/20 12:23 Dose: 200 mg Documented by: Albuterol Sulfate (Ventolin 0.5% -) 1 amp NEB Q4H PRN PRN Reason: SHORT OF BREATH/WHEEZING Last Admin: 01/31/20 12:24 Dose: 1 amp Documented by: Amino Acids (Prosource No Carb Liquid Pkt) 30 ml PO DAILY AMRITA Last Admin: 01/31/20 09:16 Dose: 30 ml Documented by: Carbidopa/Levodopa (Sinemet 25/250 -) 1 each PO 1600,1900,2200 AMRITA Last Admin: 01/30/20 21:58 Dose: 1 each Documented by: Carbidopa/Levodopa (Sinemet 25/250 -) 1 each PO 0700,1000,1300 AMRITA Last Admin: 01/31/20 13:16 Dose: 1 each Documented by: Chlorhexidine Gluconate (Hibiclens For Decolonization -) 1 applic TP HS [facility] Last Admin: 01/30/20 21:58 Dose: 1 applic Documented by: Enoxaparin Sodium (Lovenox -) 40 mg SQ DAILY AMRITA Last Admin: 01/31/20 09:17 Dose: 40 mg Documented by: Propofol (Diprivan -) 1,000,000 mcg in 100 mls @ 2.449 mls/hr IVPB TITR AMRITA; Protocol Last Titration: 01/31/20 08:28 Dose: 25 mcg/kg/min, 12.247 mls/hr Documented by: Fentanyl (Sublimaze Ivpb) 500 mcg in 100 mls @ 16.329 mls/hr IVPB TITR [facility]; Protocol Last Titration: 01/31/20 08:28 Dose: 1.22 mcg/kg/hr, 20 mls/hr Documented by: Piperacillin Sod/Tazobactam (Sod 4.5 gm/ Dextrose) 100 mls @ 200 mls/hr IVPB Q6H-IV AMRITA; Protocol Last Admin: 01/31/20 09:16 Dose: 200 mls/hr Documented by: Sodium Chloride (Normal Saline -) 1,000 mls @ 75 mls/hr IV ASDIR AMRITA Last Admin: 01/30/20 18:25 Dose: 75 mls/hr Documented by: Midazolam HCl (Midazolam 100mg/100ml-0.9%Nacl) 100 mg in 100 mls @ 1 mls/hr IVPB TITR AMRITA; Protocol Last Admin: 01/31/20 10:00 Dose: 2 mg/hr, 2 mls/hr Documented by: Methylprednisolone Sodium Succinate (Solu-Medrol -) 40 mg IVPUSH Q8H-IV AMRITA Last Admin: 01/31/20 13:18 Dose: 40 mg Documented by: Sodium Chloride ([place] Nasal [place] -) 2 spray NS TID PRN PRN Reason: NASAL CONGESTION Tetrahydrozoline HCl (Visine -) 1 drop OU QID PRN PRN Reason: DRY EYES Last Admin: 01/29/20 17:22 Dose: 1 drop Documented by: - Objective Vital Signs: Vital Signs Temperature 98.2 F 01/31/20 10:00 Pulse Rate 72 01/31/20 12:00 Respiratory Rate 14 01/31/20 12:24 Blood Pressure 87/57 L 01/31/20 12:00 O2 Sat by Pulse Oximetry (%) 100 01/31/20 12:24 Constitutional: Yes: Other Cardiovascular: Yes: S1, S2 Respiratory: Yes: Intubated, Mechanically Ventilated Gastrointestinal: Yes: Normal Bowel Sounds, Soft Musculoskeletal: Yes: WNL Extremities: Yes: WNL Labs: CBC, BMP 01/31/20 05:40 01/31/20 05:40 INR, PTT INR 1.10 (0.83-1.09) H 01/25/20 05:35 - ....Imaging Chest X-ray: Report Reviewed, Image Reviewed Assessment/Plan this patient with multiple medical issues coming in with ams and resp failure and now intubated Acute Hypoxic and Hypercapneic Respiratory Failure Pneumonia suspect Aspiration Sepsis Lactic Acidosis Parkinsons Supranuclear Palsy cardiac arrest plan continue icu care iv abx organisms noted resp support close watch cc 40 min
--- NOTE | 2020-01-31 15:41 | PN ---
Physical Exam: SUBJECTIVE: Patient seen and examined bedside s/p code. At about 7:00 AM patient heart stopped and chest compression were started, 1 round of epi given. ROSC was achieved within 2 minutes. Anesthesia was called, patient intubated within 8 minutes of coding. OBJECTIVE: Vital Signs Temp Pulse Resp BP Pulse Ox 98.2 F 88 18 95/62 98 01/31/20 10:00 01/31/20 14:00 01/31/20 14:00 01/31/20 14:00 01/31/20 14:00 GENERAL: The patient is not awake, or alert. Now intubated HEAD: Normal with no signs of trauma. EYES: PERRL ENT: Intubated LUNGS: Decreased left sided breath sounds HEART: RRR ABDOMEN: Soft, nontender, nondistended EXTREMITIES: no edema. SKIN: Warm, dry, no rashes or lesions noted Intake & Output 01/28/20 01/29/20 01/30/20 01/31/20 23:59 23:59 23:59 23:59 Intake Total 3576 418 144 1814.5 Output Total 2350 6150 600 1330 Balance 1226 -5850 250 1598.5 Weight 160 lb 4.8 oz 148 lb 12.8 oz 146 lb 14.4 oz 148 lb 4 oz Laboratory Results - last 24 hr 01/31/20 01/31/20 05:40 05:40 WBC 15.2 H RBC 4.66 Hgb 13.9 Hct 42.4 MCV 90.8 MCH 29.9 MCHC 32.9 RDW 15.0 Plt Count 414 MPV 8.2 Absolute Neuts (auto) 14.2 H Neutrophils % 93.0 H D Neutrophils % (Manual) 84.0 H D Band Neutrophils % 7.0 Lymphocytes % 3.5 L D Lymphocytes % (Manual) 7.0 L D Monocytes % 3.3 L Monocytes % (Manual) 2 L Eosinophils % 0.1 D Eosinophils % (Manual) 0.0 Basophils % 0.1 Basophils % (Manual) 0.0 Myelocytes % (Man) 0 Promyelocytes % (Man) 0 Blast Cells % (Manual) 0 Nucleated RBC % 0 Metamyelocytes 0 D Hypochromia 0 Platelet Estimate Normal Polychromasia 0 Poikilocytosis 0 Anisocytosis 0 Microcytosis 0 Macrocytosis 0 Sodium 142 Potassium 3.3 L Chloride 101 Carbon Dioxide 32 Anion Gap 9 BUN 16.0 Creatinine 0.5 L Est GFR (CKD-EPI)AfAm 130.88 Est GFR (CKD-EPI)NonAf 112.92 Random Glucose 117 H Calcium 8.5 Phosphorus 2.9 Magnesium 2.5 H Total Bilirubin 0.8 AST 20 ALT 10 L Alkaline Phosphatase 80 Total Protein 6.5 Albumin 2.2 L Active Medications Generic Name Dose Route Start Last Admin Trade Name Freq PRN Reason Stop Dose Admin Acetaminophen 650 mg 01/27/20 17:27 01/31/20 03:14 Tylenol Oral Solution - GT 650 mg Q4H PRN Administration FEVER Acetylcysteine 200 mg 01/29/20 16:12 01/31/20 12:23 Mucomyst 20 Oral / Inh Use Only* NEB 200 mg RQ4H AMRITA Administration Albuterol Sulfate 1 amp 01/31/20 03:03 01/31/20 12:24 Ventolin 0.5% - NEB 1 amp Q4H PRN Administration SHORT OF BREATH/WHEEZING Amino Acids 30 ml 01/27/20 12:00 01/31/20 09:16 Prosource No Carb Liquid Pkt PO 30 ml DAILY AMRITA Administration Carbidopa/Levodopa 1 each 01/29/20 16:00 01/30/20 21:58 Sinemet 25/250 - PO 1 each 1600,1900,2200 AMRITA Administration Carbidopa/Levodopa 1 each 01/30/20 07:00 01/31/20 13:16 Sinemet 25/250 - PO 1 each 0700,1000,1300 AMRITA Administration Chlorhexidine Gluconate 1 applic 01/25/20 22:00 01/30/20 21:58 Hibiclens For Decolonization - TP 1 applic HS AMRITA Administration Enoxaparin Sodium 40 mg 01/25/20 10:00 01/31/20 09:17 Lovenox - SQ 40 mg DAILY AMRITA Administration Propofol 1,000,000 mcg in 100 mls @ 2.449 mls/hr 01/24/20 22:45 01/31/20 08:28 Diprivan - IVPB 25 mcg/kg/min TITR AMRITA 12.247 mls/hr Titration Protocol 5 MCG/KG/MIN Fentanyl 500 mcg in 100 mls @ 16.329 mls/hr 01/25/20 05:00 01/31/20 08:28 Sublimaze Ivpb IVPB 1.22 mcg/kg/hr TITR AMRITA 20 mls/hr Titration Protocol 1 MCG/KG/HR Piperacillin Sod/Tazobactam 100 mls @ 200 mls/hr 01/25/20 10:27 01/31/20 14:17 Sod 4.5 gm/ Dextrose IVPB 200 mls/hr Q6H-IV AMRITA Administration Protocol Sodium Chloride 1,000 mls @ 75 mls/hr 01/27/20 17:27 01/30/20 18:25 Normal Saline - IV 75 mls/hr ASDIR AMRITA Administration Midazolam HCl 100 mg in 100 mls @ 1 mls/hr 01/31/20 08:15 01/31/20 10:00 Midazolam 100mg/100ml-0.9%Nacl IVPB 2 mg/hr TITR AMRITA 2 mls/hr Administration Protocol 1 MG/HR Methylprednisolone Sodium Succinate 40 mg 01/31/20 13:00 01/31/20 13:18 Solu-Medrol - IVPUSH 40 mg Q8H-IV AMRITA Administration Sodium Chloride 2 spray 01/30/20 06:54 [place] Nasal [place] - NS TID PRN NASAL CONGESTION Tetrahydrozoline HCl 1 drop 01/27/20 18:51 01/29/20 17:22 Visine - OU 1 drop QID PRN Administration DRY EYES CXR 01/31/20: A single view of the chest reveals progressive opacification of the left hemithorax with mediastinal shift to the left, old left clavicular fracture and slightly hyperaerated right lung. Correlation recommended Impression: Worse. Progressive opacification left hemithorax compatible with fluid and atelectasis. ASSESSMENT/PLAN: 64 YO M PMH HTN, BPH, Parkinson's disease with Supranuclear palsy (with PEG tube in RUQ). Found to have PNA. Admitted to ICU for Acute hypoxic, hypercapnic respiratory failure 2/2 PNA. Neuro - re-intubated 01/30, sedation restarted - Parkinson's on sinemet Pulm - Acute hypoxic, hypercapnic respiratory failure 2/2 PNA - S/p chest tube for pleural effusion/infiltrate - reintubated today, CXR Left hemithorax compatible w/atelectasis - continue mucomyst nebs and ventolin - start solumedrol 40 mg q8h Cardio - Cardiology consulted (Dr. Jauregui) He has a right bundle branch block. Possibly lateral ST elevations. There is no need for further cardiac work-up nor testing in this setting. ID -sputum cx: pseudomonas aeruginosa & staph aureus. - ID consulted (Dr. Serrato) Mirellasykahlil day 7 Renal - monitor BUN/Cr FEN - tube feeds DVT Ppx Lovenox 40 mg SQ GI Ppx - none Lines RUQ peg - family wants J peg discussed Dispo: GOC disscussion needed. Will consult palliative for family discussion. Spoke with 3 of the son's today including Aminta who is a physician. He wants bronchoscopy done to help his father breath and determine weather new lung findings are due to tube feed aspirations vs mucous/secretions. Visit type - Emergency Visit Emergency Visit: Yes ED Registration Date: 01/24/20 Care time: The patient presented to the Emergency Department on the above date and was hospitalized for further evaluation of their emergent condition. - New Patient This patient is new to me today: No - Critical Care Critical Care patient: Yes Total Critical Care Time (in minutes): 40 Critical Care Statement: The care of this patient involved high complexity decision making to prevent further life threatening deterioration of the patient's condition and/or to evaluate & treat vital organ system(s) failure or risk of failure. - Discharge Referral Referred to [facility] No - Medication Review Med list reviewed for High Risk Meds patients 65 and older: Yes ATTENDING PHYSICIAN STATEMENT I saw and evaluated the patient. I reviewed the resident's note and discussed the case with the resident. I agree with the resident's findings and plan as documented. SUBJECTIVE: OBJECTIVE: ASSESSMENT AND PLAN:
--- NOTE | 2020-01-31 15:59 | PN ---
Teaching Attending Note Name of Resident: Daisy Antoine ATTENDING PHYSICIAN STATEMENT I saw and evaluated the patient. I reviewed the resident's note and discussed the case with the resident. I agree with the resident's findings and plan as documented. SUBJECTIVE: Patient seen and examined in the ICU. Events noted. S/P CP arrest this AM. ROSC apparently in 2 to 3 minutes with subsequent intubation. CXR: Left atelectasis due to mucous plugging. Intake & Output 01/28/20 01/29/20 01/30/20 01/31/20 23:59 23:59 23:59 23:59 Intake Total 3576 843 414 1505.5 Output Total 2350 6150 600 1530 Balance 1226 -5850 250 1398.5 Weight 160 lb 4.8 oz 148 lb 12.8 oz 146 lb 14.4 oz 148 lb 4 oz Last Vital Signs Temp Pulse Resp BP Pulse Ox 98.2 F 88 18 95/62 98 01/31/20 10:00 01/31/20 14:00 01/31/20 14:00 01/31/20 14:00 01/31/20 14:00 Active Medications Acetaminophen (Tylenol Oral Solution -) 650 mg GT Q4H PRN PRN Reason: FEVER Last Admin: 01/31/20 03:14 Dose: 650 mg Documented by: Acetylcysteine (Mucomyst 20 Oral / Inh Use Only*) 200 mg NEB RQ4H AMRITA Last Admin: 01/31/20 12:23 Dose: 200 mg Documented by: Albuterol Sulfate (Ventolin 0.5% -) 1 amp NEB Q4H PRN PRN Reason: SHORT OF BREATH/WHEEZING Last Admin: 01/31/20 12:24 Dose: 1 amp Documented by: Amino Acids (Prosource No Carb Liquid Pkt) 30 ml PO DAILY AMRITA Last Admin: 01/31/20 09:16 Dose: 30 ml Documented by: Carbidopa/Levodopa (Sinemet 25/250 -) 1 each PO 1600,1900,2200 AMRITA Last Admin: 01/31/20 15:29 Dose: 1 each Documented by: Carbidopa/Levodopa (Sinemet 25/250 -) 1 each PO 0700,1000,1300 AMRITA Last Admin: 01/31/20 13:16 Dose: 1 each Documented by: Chlorhexidine Gluconate (Hibiclens For Decolonization -) 1 applic TP HS AMRITA Last Admin: 01/30/20 21:58 Dose: 1 applic Documented by: Enoxaparin Sodium (Lovenox -) 40 mg SQ DAILY AMRITA Last Admin: 01/31/20 09:17 Dose: 40 mg Documented by: Propofol (Diprivan -) 1,000,000 mcg in 100 mls @ 2.449 mls/hr IVPB TITR AMRITA; Protocol Last Titration: 01/31/20 08:28 Dose: 25 mcg/kg/min, 12.247 mls/hr Documented by: Fentanyl (Sublimaze Ivpb) 500 mcg in 100 mls @ 16.329 mls/hr IVPB TITR AMRITA; Protocol Last Titration: 01/31/20 08:28 Dose: 1.22 mcg/kg/hr, 20 mls/hr Documented by: Piperacillin Sod/Tazobactam (Sod 4.5 gm/ Dextrose) 100 mls @ 200 mls/hr IVPB Q6H-IV AMRITA; Protocol Last Admin: 01/31/20 14:17 Dose: 200 mls/hr Documented by: Sodium Chloride (Normal Saline -) 1,000 mls @ 75 mls/hr IV ASDIR AMRITA Last Admin: 01/30/20 18:25 Dose: 75 mls/hr Documented by: Midazolam HCl (Midazolam 100mg/100ml-0.9%Nacl) 100 mg in 100 mls @ 1 mls/hr IVPB TITR AMRITA; Protocol Last Admin: 01/31/20 10:00 Dose: 2 mg/hr, 2 mls/hr Documented by: Methylprednisolone Sodium Succinate (Solu-Medrol -) 40 mg IVPUSH Q8H-IV AMRITA Last Admin: 01/31/20 13:18 Dose: 40 mg Documented by: Sodium Chloride ([place] Nasal [place] -) 2 spray NS TID PRN PRN Reason: NASAL CONGESTION Tetrahydrozoline HCl (Visine -) 1 drop OU QID PRN PRN Reason: DRY EYES Last Admin: 01/29/20 17:22 Dose: 1 drop Documented by: GEN: Intubated and sedated PULM: Vented, decreased BS Left, scattered rhonchi CV: S1, S2, RR ABD: + BS, S/S N/T N/D X4Q EXT: + Pulses, WWP X4, (-) edema PROBE OPERATOR: Sedated Laboratory Results - last 24 hr 01/31/20 01/31/20 05:40 05:40 WBC 15.2 H RBC 4.66 Hgb 13.9 Hct 42.4 MCV 90.8 MCH 29.9 MCHC 32.9 RDW 15.0 Plt Count 414 MPV 8.2 Absolute Neuts (auto) 14.2 H Neutrophils % 93.0 H D Neutrophils % (Manual) 84.0 H D Band Neutrophils % 7.0 Lymphocytes % 3.5 L D Lymphocytes % (Manual) 7.0 L D Monocytes % 3.3 L Monocytes % (Manual) 2 L Eosinophils % 0.1 D Eosinophils % (Manual) 0.0 Basophils % 0.1 Basophils % (Manual) 0.0 Myelocytes % (Man) 0 Promyelocytes % (Man) 0 Blast Cells % (Manual) 0 Nucleated RBC % 0 Metamyelocytes 0 D Hypochromia 0 Platelet Estimate Normal Polychromasia 0 Poikilocytosis 0 Anisocytosis 0 Microcytosis 0 Macrocytosis 0 Sodium 142 Potassium 3.3 L Chloride 101 Carbon Dioxide 32 Anion Gap 9 BUN 16.0 Creatinine 0.5 L Est GFR (CKD-EPI)AfAm 130.88 Est GFR (CKD-EPI)NonAf 112.92 Random Glucose 117 H Calcium 8.5 Phosphorus 2.9 Magnesium 2.5 H Total Bilirubin 0.8 AST 20 ALT 10 L Alkaline Phosphatase 80 Total Protein 6.5 Albumin 2.2 L ASSESS: S/P CP arrest Left mucous plugging Acute Hypoxic and Hypercapneic Respiratory Failure Pneumonia suspect Aspiration Sepsis Lactic Acidosis Parkinsons Supranuclear Palsy PLAN: - AC Mode of vent - Mucomyst / Steroids - Aggressive CPT - Bronchodilators - Zosyn per ID - May need Bronchoscopy if mucous plugging does not resolve - monitor urine output, creatinine - Aspiration precautions - DVT/GI prophylaxis - Requires ICU monitoring Dr Scott Critical care time spent in reviewing chart, evaluating patient and formulating plan - 36 minutes.
[2020-01-31 16:43] LABS: ARTERIAL BLOOD GAS BASE EXCESS 2.7 mmol/L (-2-2); ARTERIAL BLOOD GAS PO2 88.5 mmHg (80-100)
[2020-01-31 16:47] LABS: ALLENS TEST POSITIVE
[2020-01-31 16:49] LABS: VENT MODE AC; VENT RATE 14
--- NOTE | 2020-01-31 18:37 | PN ---
Progress Note, Physician Chief Complaint: Acute Hypoxic and Hypercapneic Respiratory Failure Pneumonia suspect Aspiration Sepsis Lactic Acidosis Parkinsons Supranuclear Palsy History of Present Illness: 4 year old non-verbal male with PMH of Parkinson's disease with Supranuclear palsy with PEG tube placed. Last admission at [facility] was in November for Aspiration PNA. Pt unable to communicate and family not present at bedside. As per ER staff, pt was with AMS earlier today, pt is non verbal at baseline but is able to communicate minimally using hand gestures. EMS was called and pt was found to be hypoxic in the 80s on home oxygen of 2L, which improved to 90s after Ambu bagging. In the ER, he was sedated and intubated, septic workup initiated, and admitted to the ICU. In the ER pt again began to desat, CXR showed massive left sided effusion/infiltrate and chest tube was palced with improvement in SpO2. Pt extubated on 01/28/20, re-intubated s/p Cardiac arrest this AM - Current Medication List Current Medications: Active Medications Acetaminophen (Tylenol Oral Solution -) 650 mg GT Q4H PRN PRN Reason: FEVER Last Admin: 01/31/20 03:14 Dose: 650 mg Documented by: Acetylcysteine (Mucomyst 20 Oral / Inh Use Only*) 200 mg NEB RQ4H AMRITA Last Admin: 01/31/20 16:57 Dose: 200 mg Documented by: Albuterol Sulfate (Ventolin 0.5% -) 1 amp NEB Q4H PRN PRN Reason: SHORT OF BREATH/WHEEZING Last Admin: 01/31/20 16:57 Dose: 1 amp Documented by: Amino Acids (Prosource No Carb Liquid Pkt) 30 ml PO DAILY AMRITA Last Admin: 01/31/20 09:16 Dose: 30 ml Documented by: Carbidopa/Levodopa (Sinemet 25/250 -) 1 each PO 1600,1900,2200 AMRITA Last Admin: 01/31/20 18:35 Dose: 1 each Documented by: Carbidopa/Levodopa (Sinemet 25/250 -) 1 each PO 0700,1000,1300 [facility] Last Admin: 01/31/20 13:16 Dose: 1 each Documented by: Chlorhexidine Gluconate (Hibiclens For Decolonization -) 1 applic TP HS [facility] Last Admin: 01/30/20 21:58 Dose: 1 applic Documented by: Enoxaparin Sodium (Lovenox -) 40 mg SQ DAILY AMRITA Last Admin: 01/31/20 09:17 Dose: 40 mg Documented by: Propofol (Diprivan -) 1,000,000 mcg in 100 mls @ 2.449 mls/hr IVPB TITR AMRITA; Protocol Last Titration: 01/31/20 08:28 Dose: 25 mcg/kg/min, 12.247 mls/hr Documented by: Fentanyl (Sublimaze Ivpb) 500 mcg in 100 mls @ 16.329 mls/hr IVPB TITR AMRITA; Protocol Last Titration: 01/31/20 08:28 Dose: 1.22 mcg/kg/hr, 20 mls/hr Documented by: Piperacillin Sod/Tazobactam (Sod 4.5 gm/ Dextrose) 100 mls @ 200 mls/hr IVPB Q6H-IV AMRITA; Protocol Last Admin: 01/31/20 14:17 Dose: 200 mls/hr Documented by: Sodium Chloride (Normal Saline -) 1,000 mls @ 75 mls/hr IV ASDIR AMRITA Last Admin: 01/30/20 18:25 Dose: 75 mls/hr Documented by: Midazolam HCl (Midazolam 100mg/100ml-0.9%Nacl) 100 mg in 100 mls @ 1 mls/hr IVPB TITR AMRITA; Protocol Last Admin: 01/31/20 10:00 Dose: 2 mg/hr, 2 mls/hr Documented by: Methylprednisolone Sodium Succinate (Solu-Medrol -) 40 mg IVPUSH Q8H-IV AMRITA Last Admin: 01/31/20 17:02 Dose: 40 mg Documented by: Sodium Chloride ([place] Nasal [place] -) 2 spray NS TID PRN PRN Reason: NASAL CONGESTION Tetrahydrozoline HCl (Visine -) 1 drop OU QID PRN PRN Reason: DRY EYES Last Admin: 01/29/20 17:22 Dose: 1 drop Documented by: - Objective Vital Signs: Vital Signs Temperature 98.2 F 01/31/20 10:00 Pulse Rate 89 01/31/20 18:00 Respiratory Rate 19 01/31/20 18:00 Blood Pressure 104/66 01/31/20 18:00 O2 Sat by Pulse Oximetry (%) 89 L 01/31/20 18:00 Constitutional: Yes: No Distress, Calm, Thin Respiratory: Yes: Regular, Mechanically Ventilated, [place]ales (BLL) Gastrointestinal: Yes: Normal Bowel Sounds, Soft Genitourinary: Yes: Merchant Present Musculoskeletal: Yes: Muscle Weakness Extremities: Yes: Other (generalized atrophy) Edema: No Peripheral Pulses WNL: Yes Neurological: Yes: Other (sedated) Labs: CBC, BMP 01/31/20 05:40 01/31/20 05:40 INR, PTT INR 1.10 (0.83-1.09) H 01/25/20 05:35 Problem List - Problems (1) Pneumonia Assessment/Plan: -ID consult -IV Zosyn -IV medrol -Serial CXR's -Pulmonary on board -Bronchodilators -Mech vent -COVID 19 PCR negative -Cultures: Microbiology 01/27/20 07:00 Sputum - Endotrachea Suction/Ventilator Gram Stain - Final 01/25/20 14:00 Sputum - Endotrachea Suction/Ventilator Gram Stain - Final 01/25/20 14:00 Sputum - Endotrachea Suction/Ventilator Sputum Culture - Final Pseudomonas Aeruginosa Staphylococcus Aureus 01/24/20 23:05 Blood - Peripheral Venous Blood Culture - Preliminary NO GROWTH OBTAINED AFTER 48 HOURS, INCUBATION TO CONTINUE FOR 3 DAYS. 01/24/20 23:05 Blood - Peripheral Venous Blood Culture - Preliminary NO GROWTH OBTAINED AFTER 48 HOURS, INCUBATION TO CONTINUE FOR 3 DAYS. 01/24/20 23:15 Urine - Urine - Catheterized Urine Culture - Final NO GROWTH OBTAINED Problems reviewed: Yes Code(s): J18.9 - PNEUMONIA, UNSPECIFIED ORGANISM Qualifiers: Pneumonia type: due to unspecified organism Laterality: bilateral Lung location: unspecified part of lung Qualified Code(s): J18.9 - Pneumonia, unsp ecified organism (2) Respiratory failure Assessment/Plan: as above -CXR worse-progress opacification of left hemithorax -Left chest tube Problems reviewed: Yes Code(s): J96.90 - RESPIRATORY FAILURE, UNSP, UNSP W HYPOXIA OR HYPERCAPNIA Qualifiers: Chronicity: acute Respiratory failure complication: hypoxia Qualified Code(s): J96.01 - Acute respiratory failure with hypoxia (3) Functional quadriplegia Problems reviewed: Yes Code(s): R53.2 - FUNCTIONAL QUADRIPLEGIA (4) Parkinson disease Problems reviewed: Yes Code(s): G20 - PARKINSON'S DISEASE (5) Supranuclear palsy Assessment/Plan: -Seen by neurology Problems reviewed: Yes Code(s): G23.1 - PROGRESSIVE SUPRANUCLEAR OPHTHALMOPLEGIA (6) Cardiac arrest Assessment/Plan: -re-intubated Problems reviewed: Yes Code(s): I46.9 - CARDIAC ARREST, CAUSE UNSPECIFIED Assessment/Plan See problem list poor prognosis Palliative care consult
[2020-01-31] MEDS ORDERED: levETIRAcetam 500 MG/5 ML INJECTION VIAL IVPB ONE (20:58)
[2020-01-31] MEDS ORDERED: PT OWN MED DRAWER 7, Y5N ONE (21:07)
[2020-01-31] MEDS: SODIUM CHLORIDE 1,000 ML IV SCH (21:35)
[2020-01-31] MEDS: CHLORHEXIDINE GLUCONATE 4% CLEANSER FOR DECOLONIZATION TP SCH (21:36)
[2020-01-31] MEDS ORDERED: MIDAZOLAM HCL 2 MG/2 ML SINGLE DOSE VIAL IVPUSH ONE (23:43)
[2020-02-01] MEDS: FENTANYL IVPB 500 MCG/100 ML BAG IVPB SCH ×2 (00:09→22:49)
[2020-02-01] MEDS: PROPOFOL 1,000,000 MCG/100 ML VIAL IVPB SCH ×3 (00:09→22:49)
[2020-02-01] MEDS ORDERED: PIPERACILLIN/TAZOBACTAM 4.5 GM VIAL IVPB ONE ×4 (00:13→20:59)
[2020-02-01] MEDS ORDERED: DEXTROSE 5%-WATER 100 ML IVPB ONE ×4 (00:14→20:59)
[2020-02-01] MEDS: ALBUTEROL SO4 0.5 % INH SOLN 2.5 MG/0.5 ML VIAL.NEB. NEB PRN ×3 (00:20→20:30)
[2020-02-01] MEDS: ACETYLCYSTEINE 20% 200MG/ML 4 ML VIAL *FOR ORAL / INH USE ONLY NEB SCH ×6 (00:20→21:36)
[2020-02-01] MEDS ORDERED: LORazepam 2 MG/ML SDV VIAL IVPUSH ONE ×2 (00:40→11:02)
[2020-02-01] MEDS ORDERED: LORazepam 2 MG/ML SDV VIAL ONE ×2 (00:46→11:04)
[2020-02-01] MEDS: methylPREDNISolone NA SUCC 40 MG/1 ML VIAL IVPUSH SCH ×3 (01:42→17:18)
[2020-02-01] MEDS: PIPERACILLIN/TAZOB 4.5 GM 4.5 GM in DEXTROSE 5%-WATER 100 ML IVPB SCH ×4 (02:13→21:31)
[2020-02-01] MEDS: CARBIDOPA/LEVODOPA 25/250 TABLET (FP) PO SCH ×6 (06:22→21:36)
[2020-02-01 06:40] LABS: HEMATOCRIT 34.6 % (35.4-49); HEMOGLOBIN 11.2 GM/dL (11.7-16.9); LYMPH % 7.4 % (8-40); MCHC 32.3 g/dl (32.0-35.9); MEAN CELL VOLUME 92.8 fl (80-96); MEAN PLT VOLUME 8.1 fl (7.5-11.1); MONO % 1.9 % (3.8-10.2); NEUT % 90.7 % (42.8-82.8); PLATELET COUNT 316 K/MM3 (134-434); RBC 3.73 M/mm3 (4.00-5.60); RDW 14.7 % (11.9-15.9); WHITE BLOOD COUNT 8.7 K/mm3 (4.0-10.0)
[2020-02-01 07:02] LABS: BLOOD UREA NITROGEN 25.4 mg/dL (7-18); CALCIUM 8.4 mg/dL (8.5-10.1); CREATININE 0.6 mg/dL (0.55-1.3); MAGNESIUM 2.7 mg/dL (1.8-2.4); PHOSPHOROUS 3.2 mg/dL (2.5-4.9); POTASSIUM 3.8 mmol/L (3.5-5.1)
[2020-02-01] MEDS: MIDAZOLAM IN 0.9 % SOD.CHLORID 100 MG/100 ML PLAST..BAG IVPB SCH (08:00)
[2020-02-01] MEDS: ENOXAPARIN NA (PORCINE) 40 MG/0.4 ML DISP.SYRIN SQ SCH (09:24)
[2020-02-01] MEDS: AMINO ACIDS/PROTEIN HYDROLYS 30 ML LIQUID.PKT PO SCH (09:26)
[2020-02-01] MEDS ORDERED: BENZOIN/ALOE VERA/STORAX/TOLU 58 ML BOTTLE ONE (09:46)
--- NOTE | 2020-02-01 10:46 | PN ---
Progress Note, Physician Chief Complaint: Acute Hypoxic and Hypercapneic Respiratory Failure Pneumonia suspect Aspiration Sepsis Lactic Acidosis Parkinsons Supranuclear Palsy History of Present Illness: 4 year old non-verbal male with PMH of Parkinson's disease with Supranuclear palsy with PEG tube placed. Last admission at [facility] was in November for Aspiration PNA. Pt unable to communicate and family not present at bedside. As per ER staff, pt was with AMS earlier today, pt is non verbal at baseline but is able to communicate minimally using hand gestures. EMS was called and pt was found to be hypoxic in the 80s on home oxygen of 2L, which improved to 90s after Ambu bagging. In the ER, he was sedated and intubated, septic workup initiated, and admitted to the ICU. In the ER pt again began to desat, CXR showed massive left sided effusion/infiltrate and chest tube was palced with improvement in SpO2. Pt extubated on 01/28/20, re-intubated s/p Cardiac arrest on 01/31/20 Dwindling MAP - Current Medication List Current Medications: Active Medications Acetaminophen (Tylenol Oral Solution -) 650 mg GT Q4H PRN PRN Reason: FEVER Last Admin: 01/31/20 03:14 Dose: 650 mg Documented by: Acetylcysteine (Mucomyst 20 Oral / Inh Use Only*) 200 mg NEB RQ4H AMRITA Last Admin: 02/01/20 04:40 Dose: 200 mg Documented by: Albuterol Sulfate (Ventolin 0.5% -) 1 amp NEB Q4H PRN PRN Reason: SHORT OF BREATH/WHEEZING Last Admin: 02/01/20 04:40 Dose: 1 amp Documented by: Amino Acids (Prosource No Carb Liquid Pkt) 30 ml PO DAILY [facility]RITA Last Admin: 02/01/20 09:26 Dose: 30 ml Documented by: Carbidopa/Levodopa (Sinemet 25/250 -) 1 each PO 1600,1900,2200 AMRITA Last Admin: 01/31/20 21:40 Dose: 1 each Documented by: Carbidopa/Levodopa (Sinemet 25/250 -) 1 each PO 0700,1000,1300 AMRITA Last Admin: 02/01/20 09:24 Dose: 1 each Documented by: Chlorhexidine Gluconate (Hibiclens For Decolonization -) 1 applic TP HS [facility] Last Admin: 01/31/20 21:36 Dose: 1 applic Documented by: Enoxaparin Sodium (Lovenox -) 40 mg SQ DAILY AMRITA Last Admin: 02/01/20 09:24 Dose: 40 mg Documented by: Propofol (Diprivan -) 1,000,000 mcg in 100 mls @ 2.449 mls/hr IVPB TITR [facility]RITA; Protocol Last Admin: 02/01/20 01:42 Dose: 25 mcg/kg/min, 12.247 mls/hr Documented by: Fentanyl (Sublimaze Ivpb) 500 mcg in 100 mls @ 16.329 mls/hr IVPB TITR [facility]RITA; Protocol Last Admin: 02/01/20 00:09 Dose: 0.61 mcg/kg/hr, 10 mls/hr Documented by: Piperacillin Sod/Tazobactam (Sod 4.5 gm/ Dextrose) 100 mls @ 200 mls/hr IVPB Q6H-IV [facility]RITA; Protocol Last Admin: 02/01/20 09:24 Dose: 200 mls/hr Documented by: Sodium Chloride (Normal Saline -) 1,000 mls @ 75 mls/hr IV ASDIR AMRITA Last Admin: 01/31/20 21:35 Dose: Not Given Documented by: Midazolam HCl (Midazolam 100mg/100ml-0.9%Nacl) 100 mg in 100 mls @ 1 mls/hr IVPB TITR [facility]RITA; Protocol Last Infusion: 01/31/20 22:00 Dose: 7 mg/hr, 7 mls/hr Documented by: Methylprednisolone Sodium Succinate (Solu-Medrol -) 40 mg IVPUSH Q8H-IV AMRITA Last Admin: 02/01/20 09:25 Dose: 40 mg Documented by: Sodium Chloride ([place] Nasal [place] -) 2 spray NS TID PRN PRN Reason: NASAL CONGESTION Tetrahydrozoline HCl (Visine -) 1 drop OU QID PRN PRN Reason: DRY EYES Last Admin: 01/29/20 17:22 Dose: 1 drop Documented by: - Objective Vital Signs: Vital Signs Temperature 98.6 F 02/01/20 04:00 Pulse Rate 93 H 02/01/20 08:25 Respiratory Rate 15 02/01/20 08:25 Blood Pressure 89/55 L 02/01/20 06:00 O2 Sat by Pulse Oximetry (%) 100 02/01/20 08:25 Constitutional: Yes: No Distress, Calm, Thin Cardiovascular: Yes: Regular Rate and Rhythm Respiratory: Yes: Regular, Mechanically Ventilated, Rales (BLL) Gastrointestinal: Yes: Normal Bowel Sounds, Soft Genitourinary: Yes: Merchant Present Musculoskeletal: Yes: Muscle Weakness Extremities: Yes: Other (generalized atrophy) Edema: No Peripheral Pulses WNL: Yes Neurological: Yes: Other (sedated) Labs: CBC, BMP 02/01/20 05:45 02/01/20 05:45 INR, PTT INR 1.10 (0.83-1.09) H 01/25/20 05:35 Problem List - Problems (1) Pneumonia Assessment/Plan: -ID consult -IV Zosyn -IV medrol -Serial CXR's -Pulmonary on board -Bronchodilators -Mech vent -COVID 19 PCR negative -Cultures: Microbiology 01/27/20 07:00 Sputum - Endotrachea Suction/Ventilator Gram Stain - Final 01/25/20 14:00 Sputum - Endotrachea Suction/Ventilator Gram Stain - Final 01/25/20 14:00 Sputum - Endotrachea Suction/Ventilator Sputum Culture - Final Pseudomonas Aeruginosa Staphylococcus Aureus 01/24/20 23:05 Blood - Peripheral Venous Blood Culture - Preliminary NO GROWTH OBTAINED AFTER 48 HOURS, INCUBATION TO CONTINUE FOR 3 DAYS. 01/24/20 23:05 Blood - Peripheral Venous Blood Culture - Preliminary NO GROWTH OBTAINED AFTER 48 HOURS, INCUBATION TO CONTINUE FOR 3 DAYS. 01/24/20 23:15 Urine - Urine - Catheterized Urine Culture - Final NO GROWTH OBTAINED Problems reviewed: Yes Code(s): J18.9 - PNEUMONIA, UNSPECIFIED ORGANISM Qualifiers: Pneumonia type: due to unspecified organism Laterality: bilateral Lung location: unspecified part of lung Qualified Code(s): J18.9 - Pneumonia, unspecified organism (2) Respiratory failure Assessment/Plan: as above -CXR worse-progress opacification of left hemithorax -Left chest tube Problems reviewed: Yes Code(s): J96.90 - RESPIRATORY FAILURE, UNSP, UNSP W HYPOXIA OR HYPERCAPNIA Qualifiers: Chronicity: acute Respiratory failure complication: hypoxia Qualified Code(s): J96.01 - Acute respiratory failure with hypoxia (3) Functional quadriplegia Problems reviewed: Yes Code(s): R53.2 - FUNCTIONAL QUADRIPLEGIA (4) Parkinson disease Problems reviewed: Yes Code(s): G20 - PARKINSON'S DISEASE (5) Supranuclear palsy Assessment/Plan: -Seen by neurology Problems reviewed: Yes Code(s): G23.1 - PROGRESSIVE SUPRANUCLEAR OPHTHALMOPLEGIA (6) Cardiac arrest Assessment/Plan: -re-intubated Problems reviewed: Yes Code(s): I46.9 - CARDIAC ARREST, CAUSE UNSPECIFIED Assessment/Plan See problem list poor prognosis Palliative care consult
[2020-02-01] MEDS ORDERED: levETIRAcetam 500 MG/5 ML INJECTION VIAL IVPB ONE ×2 (11:09→11:11)
[2020-02-01] MEDS: levETIRAcetam 500 MG/5 ML INJECTION VIAL IVPB SCH ×2 (11:28→21:32)
[2020-02-01] MEDS ORDERED: FOSPHENYTOIN SODIUM 500 MG in SODIUM CHLORIDE 100 ML IVPB ONE (13:17)
[2020-02-01] MEDS ORDERED: PHENobarbital SODIUM 65 MG/1 ML VIAL IVPUSH ONE ×2 (13:20)
[2020-02-01] MEDS ORDERED: FOSPHENYTOIN SODIUM 1,000 MG in SODIUM CHLORIDE 100 ML IVPB ONE (13:36)
--- NOTE | 2020-02-01 13:47 | PN ---
Progress Note, Physician History of Present Illness: events noted now intubated - Current Medication List Current Medications: Active Medications Acetaminophen (Tylenol Oral Solution -) 650 mg GT Q4H PRN PRN Reason: FEVER Last Admin: 01/31/20 03:14 Dose: 650 mg Documented by: Acetylcysteine (Mucomyst 20 Oral / Inh Use Only*) 200 mg NEB RQ4H AMRITA Last Admin: 02/01/20 12:30 Dose: 200 mg Documented by: Albuterol Sulfate (Ventolin 0.5% -) 1 amp NEB Q4H PRN PRN Reason: SHORT OF BREATH/WHEEZING Last Admin: 02/01/20 04:40 Dose: 1 amp Documented by: Amino Acids (Prosource No Carb Liquid Pkt) 30 ml PO DAILY [facility] Last Admin: 02/01/20 09:26 Dose: 30 ml Documented by: Carbidopa/Levodopa (Sinemet 25/250 -) 1 each PO 1600,1900,2200 AMRITA Last Admin: 01/31/20 21:40 Dose: 1 each Documented by: Carbidopa/Levodopa (Sinemet 25/250 -) 1 each PO 0700,1000,1300 AMRITA Last Admin: 02/01/20 12:51 Dose: 1 each Documented by: Chlorhexidine Gluconate (Hibiclens For Decolonization -) 1 applic TP HS [facility] Last Admin: 01/31/20 21:36 Dose: 1 applic Documented by: Enoxaparin Sodium (Lovenox -) 40 mg SQ DAILY [facility] Last Admin: 02/01/20 09:24 Dose: 40 mg Documented by: Propofol (Diprivan -) 1,000,000 mcg in 100 mls @ 2.449 mls/hr IVPB TITR AMRITA; Protocol Last Admin: 02/01/20 01:42 Dose: 25 mcg/kg/min, 12.247 mls/hr Documented by: Fentanyl (Sublimaze Ivpb) 500 mcg in 100 mls @ 16.329 mls/hr IVPB TITR [facility]; Protocol Last Admin: 02/01/20 00:09 Dose: 0.61 mcg/kg/hr, 10 mls/hr Documented by: Piperacillin Sod/Tazobactam (Sod 4.5 gm/ Dextrose) 100 mls @ 200 mls/hr IVPB Q6H-IV [facility]RITA; Protocol Last Admin: 02/01/20 09:24 Dose: 200 mls/hr Documented by: Sodium Chloride (Normal Saline -) 1,000 mls @ 75 mls/hr IV ASDIR [facility]RITA Last Admin: 01/31/20 21:35 Dose: Not Given Documented by: Midazolam HCl (Midazolam 100mg/100ml-0.9%Nacl) 100 mg in 100 mls @ 1 mls/hr IVPB TITR AMRITA; Protocol Last Admin: 02/01/20 08:00 Dose: 7 mg/hr, 7 mls/hr Documented by: Levetiracetam (Keppra Injection -) 1,500 mg IVPB BID AMRITA Last Admin: 02/01/20 11:28 Dose: 1,500 mg Documented by: Methylprednisolone Sodium Succinate (Solu-Medrol -) 40 mg IVPUSH Q8H-IV AMRITA Last Admin: 02/01/20 09:25 Dose: 40 mg Documented by: Phenobarbital (Phenobarbital Injection -) 1,200 mg IVPUSH ONCE ONE Stop: 02/01/20 13:21 Sodium Chloride ([place] Nasal [place] -) 2 spray NS TID PRN PRN Reason: NASAL CONGESTION Tetrahydrozoline HCl (Visine -) 1 drop OU QID PRN PRN Reason: DRY EYES Last Admin: 01/29/20 17:22 Dose: 1 drop Documented by: - Objective Vital Signs: Vital Signs Temperature 98.4 F 02/01/20 08:00 Pulse Rate 104 H 02/01/20 12:00 Respiratory Rate 14 02/01/20 12:30 Blood Pressure 94/58 L 02/01/20 12:00 O2 Sat by Pulse Oximetry (%) 98 02/01/20 12:00 Constitutional: Yes: No Distress, Calm Cardiovascular: Yes: S1, S2 Respiratory: Yes: Intubated, Mechanically Ventilated Gastrointestinal: Yes: Normal Bowel Sounds, Soft Musculoskeletal: Yes: WNL Extremities: Yes: WNL Labs: CBC, BMP 02/01/20 05:45 02/01/20 05:45 INR, PTT INR 1.10 (0.83-1.09) H 01/25/20 05:35 Assessment/Plan this patient with multiple medical issues coming in with ams and resp failure and now intubated Acute Hypoxic and Hypercapneic Respiratory Failure Pneumonia suspect Aspiration Sepsis Lactic Acidosis Parkinsons Supranuclear Palsy cardiac arrest plan continue icu care iv abx organisms noted resp support close watch cc 40 min
--- NOTE | 2020-02-01 14:12 | PN ---
Teaching Attending Note Name of Resident: Daisy Antoine ATTENDING PHYSICIAN STATEMENT I saw and evaluated the patient. I reviewed the resident's note and discussed the case with the resident. I agree with the resident's findings and plan as documented. SUBJECTIVE: Pt seen and examined in the ICU. Intubated, sedated. No pressors. Fio2 80% PEEP 10. Myoclonic activity this AM. OBJECTIVE: Vital Signs Period Temp Pulse Resp BP Sys/Villegas Pulse Ox Last 24 Hr 98.4 F-98.8 F 64-112 14-27 83-107/53-67 89-100 Intake & Output 01/29/20 01/30/20 01/31/20 02/01/20 23:59 23:59 23:59 23:59 Intake Total 797 789 9642.0 2980.5 Output Total 6150 600 1680 400 Balance -5850 250 1929.0 2580.5 Weight 67.495 kg 66.633 kg 67.245 kg 66.31 kg Gen: intubated, sedated Heart: RRR Lung: scattered rhonchi Abd: soft, nontender Ext: no edema CBC, BMP 02/01/20 05:45 02/01/20 05:45 Active Medications Acetaminophen (Tylenol Oral Solution -) 650 mg GT Q4H PRN PRN Reason: FEVER Last Admin: 01/31/20 03:14 Dose: 650 mg Documented by: Acetylcysteine (Mucomyst 20 Oral / Inh Use Only*) 200 mg NEB RQ4H AMRITA Last Admin: 02/01/20 12:30 Dose: 200 mg Documented by: Albuterol Sulfate (Ventolin 0.5% -) 1 amp NEB Q4H PRN PRN Reason: SHORT OF BREATH/WHEEZING Last Admin: 02/01/20 04:40 Dose: 1 amp Documented by: Amino Acids (Prosource No Carb Liquid Pkt) 30 ml PO DAILY AMRITA Last Admin: 02/01/20 09:26 Dose: 30 ml Documented by: Carbidopa/Levodopa (Sinemet 25/250 -) 1 each PO 1600,1900,2200 AMRITA Last Admin: 01/31/20 21:40 Dose: 1 each Documented by: Carbidopa/Levodopa (Sinemet 25/250 -) 1 each PO 0700,1000,1300 AMRITA Last Admin: 02/01/20 12:51 Dose: 1 each Documented by: Chlorhexidine Gluconate (Hibiclens For Decolonization -) 1 applic TP HS [facility] Last Admin: 01/31/20 21:36 Dose: 1 applic Documented by: Enoxaparin Sodium (Lovenox -) 40 mg SQ DAILY [facility] Last Admin: 02/01/20 09:24 Dose: 40 mg Documented by: Propofol (Diprivan -) 1,000,000 mcg in 100 mls @ 2.449 mls/hr IVPB TITR [facility]RITA; Protocol Last Admin: 02/01/20 01:42 Dose: 25 mcg/kg/min, 12.247 mls/hr Documented by: Fentanyl (Sublimaze Ivpb) 500 mcg in 100 mls @ 16.329 mls/hr IVPB TITR [facility]; Protocol Last Admin: 02/01/20 00:09 Dose: 0.61 mcg/kg/hr, 10 mls/hr Documented by: Piperacillin Sod/Tazobactam (Sod 4.5 gm/ Dextrose) 100 mls @ 200 mls/hr IVPB Q6H-IV AMRITA; Protocol Last Admin: 02/01/20 14:06 Dose: 200 mls/hr Documented by: Sodium Chloride (Normal Saline -) 1,000 mls @ 75 mls/hr IV ASDIR [facility] Last Admin: 01/31/20 21:35 Dose: Not Given Documented by: Midazolam HCl (Midazolam 100mg/100ml-0.9%Nacl) 100 mg in 100 mls @ 1 mls/hr IVPB TITR [facility]; Protocol Last Admin: 02/01/20 08:00 Dose: 7 mg/hr, 7 mls/hr Documented by: Levetiracetam (Keppra Injection -) 1,500 mg IVPB BID [facility] Last Admin: 02/01/20 11:28 Dose: 1,500 mg Documented by: Methylprednisolone Sodium Succinate (Solu-Medrol -) 40 mg IVPUSH Q8H-IV [facility] Last Admin: 02/01/20 09:25 Dose: 40 mg Documented by: Phenobarbital (Phenobarbital Injection -) 1,200 mg IVPUSH ONCE ONE Stop: 02/01/20 13:21 Sodium Chloride ([place] Nasal [place] -) 2 spray NS TID PRN PRN Reason: NASAL CONGESTION Tetrahydrozoline HCl (Visine -) 1 drop OU QID PRN PRN Reason: DRY EYES Last Admin: 01/29/20 17:22 Dose: 1 drop Documented by: ASSESSMENT AND PLAN: Acute Hypoxic and Hypercapneic Respiratory Failure s/p Cardiopulmonary Arrest Suspect Anoxic Brain Injury Pneumonia suspect Aspiration Sepsis Lactic Acidosis r/o DE Parkinsons Supranuclear Palsy - antiepileptics - neuro f/u - CT head when stable - continue antibiotics - monitor urine output, creatinine - titrate Fio2, PEEP to keep Spo2 >90% - continue volume assist control - enteral feeds - DVT/GI prophylaxis - ICU monitoring - poor overall prognosis, continue discussions regarding goals of care, advanced directives critical care time spent in reviewing chart, evaluating patient and formulating plan 35 min
[2020-02-01] MEDS ORDERED: SODIUM CHLORIDE IVPB ONE (14:30)
[2020-02-01] MEDS ORDERED: PHENOBARBITAL IVPB ONE (14:30)
[2020-02-01] MEDS ORDERED: NOREPINEPHRINE BITARTRATE 8,000 MCG/500 ML BAG IVPB ONE (15:05)
[2020-02-01] MEDS: NOREPINEPHRINE BITARTRATE 8,000 MCG/500 ML BAG IVPB SCH (15:25)
[2020-02-01] MEDS ORDERED: NOREPINEPHRINE BITARTRATE 8,000 MCG in DEXTROSE 5%-WATER - 492 ML IV SCH (15:30)
--- NOTE | 2020-02-01 16:41 | PN ---
Physical Exam: SUBJECTIVE: Patient seen and examined bedside. Last night patient started have jerking movements consistent with possible seizure. Keppra was given. Patient started having seizures again around noon. OBJECTIVE: Vital Signs 02/01/20 02/01/20 10:00 12:00 Pulse Rate 112 H 104 H Respiratory 27 H 23 H Rate Blood Pressure 93/53 L 94/58 L O2 Sat by Pulse 100 98 Oximetry (%) 02/01/20 14:00 Pulse Rate 88 Respiratory 24 H Rate Blood Pressure 83/50 L O2 Sat by Pulse 94 L Oximetry (%) GENERAL: The patient is not awake, or alert. Now intubated HEAD: Normal with no signs of trauma. EYES: PERRL ENT: Intubated LUNGS: Decreased left sided breath sounds HEART: RRR ABDOMEN: Soft, nontender, nondistended EXTREMITIES: no edema. SKIN: Warm, dry, no rashes or lesions noted Intake & Output 01/29/20 01/30/20 01/31/20 02/01/20 23:59 23:59 23:59 23:59 Intake Total 356 176 2541.0 2980.5 Output Total 6150 600 1680 700 Balance -5850 250 1929.0 2280.5 Weight 148 lb 12.8 oz 146 lb 14.4 oz 148 lb 4 oz 146 lb 3 oz Laboratory Results - last 24 hr 01/31/20 02/01/20 02/01/20 16:26 00:17 05:45 WBC 8.7 RBC 3.73 L Hgb 11.2 L Hct 34.6 L D MCV 92.8 MCH 30.0 MCHC 32.3 RDW 14.7 Plt Count 316 D MPV 8.1 Absolute Neuts (auto) 7.9 Neutrophils % 90.7 H Lymphocytes % 7.4 L D Monocytes % 1.9 L Eosinophils % 0.0 D Basophils % 0.0 Nucleated RBC % 0 Anticoagulation Therapy No Result Required. Puncture Site Right radial Patient Temperature No Result Required. ABG pH 7.330 L ABG pCO2 59.00 H ABG pO2 88.5 ABG HCO3 30.4 H ABG O2 Sat (Measured) 96.0 ABG O2 Content No Result Required. ABG Base Excess 2.7 H Darion Test Positive Patient On Oxygen Yes O2 Delivery Device Mech vent Oxygen Flow Rate 100% Vent Mode Ac Vent Rate 14 Mechanical Rate No Result Required. PEEP 10.0 Pressure Support Vent 400 Sodium Potassium Chloride Carbon Dioxide Anion Gap BUN Creatinine Est GFR (CKD-EPI)AfAm Est GFR (CKD-EPI)NonAf POC Glucometer 129 Random Glucose Calcium Phosphorus Magnesium 02/01/20 05:45 WBC RBC Hgb Hct MCV MCH MCHC RDW Plt Count MPV Absolute Neuts (auto) Neutrophils % Lymphocytes % Monocytes % Eosinophils % Basophils % Nucleated RBC % Anticoagulation Therapy Puncture Site Patient Temperature ABG pH ABG pCO2 ABG pO2 ABG HCO3 ABG O2 Sat (Measured) ABG O2 Content ABG Base Excess Darion Test Patient On Oxygen O2 Delivery Device Oxygen Flow Rate Vent Mode Vent Rate Mechanical Rate PEEP Pressure Support Vent Sodium 142 Potassium 3.8 Chloride 104 Carbon Dioxide 34 H Anion Gap 5 L BUN 25.4 H Creatinine 0.6 Est GFR (CKD-EPI)AfAm 121.43 Est GFR (CKD-EPI)NonAf 104.77 POC Glucometer Random Glucose 125 H Calcium 8.4 L Phosphorus 3.2 Magnesium 2.7 H Active Medications Generic Name Dose Route Start Last Admin Trade Name Freq PRN Reason Stop Dose Admin Acetaminophen 650 mg 01/27/20 17:27 01/31/20 03:14 Tylenol Oral Solution - GT 650 mg Q4H PRN Administration FEVER Acetylcysteine 200 mg 01/29/20 16:12 02/01/20 12:30 Mucomyst 20 Oral / Inh Use Only* NEB 200 mg RQ4H AMRITA Administration Albuterol Sulfate 1 amp 01/31/20 03:03 02/01/20 04:40 Ventolin 0.5% - NEB 1 amp Q4H PRN Administration SHORT OF BREATH/WHEEZING Amino Acids 30 ml 01/27/20 12:00 02/01/20 09:26 Prosource No Carb Liquid Pkt PO 30 ml DAILY AM[facility]ITA Administration Carbidopa/Levodopa 1 each 01/29/20 16:00 02/01/20 15:23 Sinemet 25/250 - PO 1 each 1600,1900,2200 AMRITA Administration Carbidopa/Levodopa 1 each 01/30/20 07:00 02/01/20 12:51 Sinemet 25/250 - PO 1 each 0700,1000,1300 AMRITA Administration Chlorhexidine Gluconate 1 applic 01/25/20 22:00 01/31/20 21:36 Hibiclens For Decolonization - TP 1 applic HS [facility]ITA Administration Enoxaparin Sodium 40 mg 09/02/20 10:00 02/01/20 09:24 Lovenox - SQ 40 mg DAILY [facility]ITA Administration Propofol 1,000,000 mcg in 100 mls @ 2.449 mls/hr 01/24/20 22:45 02/01/20 01:42 Diprivan - IVPB 25 mcg/kg/min TITR [facility]ITA 12.247 mls/hr Administration Protocol 5 MCG/KG/MIN Fentanyl 500 mcg in 100 mls @ 16.329 mls/hr 01/25/20 05:00 02/01/20 00:09 Sublimaze Ivpb IVPB 0.61 mcg/kg/hr TITR [facility]ITA 10 mls/hr Administration Protocol 1 MCG/KG/HR Piperacillin Sod/Tazobactam 100 mls @ 200 mls/hr 01/25/20 10:27 02/01/20 14:06 Sod 4.5 gm/ Dextrose IVPB 200 mls/hr Q6H-IV [facility]ITA Administration Protocol Sodium Chloride 1,000 mls @ 75 mls/hr 01/27/20 17:27 01/31/20 21:35 Normal Saline - IV Not Given ASDIR [facility]RITA Midazolam HCl 100 mg in 100 mls @ 1 mls/hr 01/31/20 08:15 02/01/20 08:00 Midazolam 100mg/100ml-0.9%Nacl IVPB 7 mg/hr TITR [facility] 7 mls/hr Administration Protocol 1 MG/HR Norepinephrine Bitartrate 8,000 mcg in 500 mls @ 18.75 mls/hr 02/01/20 15:30 02/01/20 16:32 Levophed Bag IVPB 2.5 mcg/min TITR [facility]ITA 9.375 mls/hr Titration Protocol 5 MCG/MIN Levetiracetam 1,500 mg 02/01/20 11:15 02/01/20 11:28 Keppra Injection - IVPB 1,500 mg BID [facility]ITA Administration Methylprednisolone Sodium Succinate 40 mg 01/31/20 13:00 02/01/20 09:25 Solu-Medrol - IVPUSH 40 mg Q8H-IV [facility]ITA Administration Sodium Chloride 2 spray 01/30/20 06:54 [place] Nasal [place] - NS TID PRN NASAL CONGESTION Tetrahydrozoline HCl 1 drop 01/27/20 18:51 01/29/20 17:22 Visine - OU 1 drop QID PRN Administration DRY EYES CXR 01/31: A single view of the chest has been submitted. The prior study of 01/31/2020 the left hemithorax is better aerated. There is still infiltrate and fluid present. Endotracheal tube is present and the tip is well above the esperanza. Tubing projects over the left chest. The right lung is well aerated. Correlation recommended Impression: Improvement. ASSESSMENT/PLAN: 64 YO M PMH HTN, BPH, Parkinson's disease with Supranuclear palsy (with PEG tube in RUQ). Found to have PNA. Admitted to ICU for Acute hypoxic, hypercapnic respiratory failure 2/2 PNA. Neuro - re-intubated 01/30, sedation restarted - Parkinson's on sinemet - patient started having seizures with what appear to myoclonus jerks: most likely 2/2 hypoxic brain injury - gave 1500 keppra, 2mg IV ativan, jerks continued. - Gave fosphenytoin 1000 mg, then when persisted, gave 1200 phenobarbital. - CT head once stable Pulm - Acute hypoxic, hypercapnic respiratory failure 2/2 PNA - S/p chest tube for pleural effusion/infiltrate - reintubated 01/30, CXR Left hemithorax compatible w/atelectasis - continue mucomyst nebs and ventolin - start solumedrol 40 mg q8h Cardio - Cardiology consulted (Dr. Jauregui) He has a right bundle branch block. Possibly lateral ST elevations. There is no need for further cardiac work-up nor testing in this setting. - hypotensive, restarted pressors ID -sputum cx: pseudomonas aeruginosa & staph aureus. - ID consulted (Dr. Serrato) Zosyn day 8 Renal - monitor BUN/Cr FEN - tube feeds DVT Ppx Lovenox 40 mg SQ GI Ppx - none Lines - RUQ peg - family wants J peg discussed Dispo: - GOC disscussion needed. Will consult palliative for family discussion. - spoke with son about seizure activity and fear of severe hypoxic brain injury and tenuous situation today. Family wants everything done. Visit type - Emergency Visit Emergency Visit: Yes ED Registration Date: 01/24/20 Care time: The patient presented to the Emergency Department on the above date and was hospitalized for further evaluation of their emergent condition. - New Patient This patient is new to me today: No - Critical Care Critical Care patient: Yes Total Critical Care Time (in minutes): 40 Critical Care Statement: The care of this patient involved high complexity decision making to prevent further life threatening deterioration of the patient's condition and/or to evaluate & treat vital organ system(s) failure or risk of failure. - Discharge Referral Referred to [facility] No - Medication Review Med list reviewed for High Risk Meds patients 65 and older: Yes ATTENDING PHYSICIAN STATEMENT I saw and evaluated the patient. I reviewed the resident's note and discussed the case with the resident. I agree with the resident's findings and plan as documented. SUBJECTIVE: OBJECTIVE: ASSESSMENT AND PLAN:
[2020-02-01] MEDS: SODIUM CHLORIDE 1,000 ML IV SCH (18:11)
--- NOTE | 2020-02-01 18:23 | PROC ---
Procedure Note Procedure: Performed by Quinten aNsh Assisted by Daisy Antoine Central Line Insertion Indication: Vasopressor Risks and Benefits Explained: Yes Consent on Chart: Yes Central Line: Triple Lumen Catheter Ultrasound Guided Assistance: Yes Position: Left Internal Jugular Post Insertion: Yes: Chest X-Ray Ordered Sterile Dressing Applied: Yes
[2020-02-01] MEDS: CHLORHEXIDINE GLUCONATE 4% CLEANSER FOR DECOLONIZATION TP SCH (21:32)
[2020-02-02] MEDS: ACETYLCYSTEINE 20% 200MG/ML 4 ML VIAL *FOR ORAL / INH USE ONLY NEB SCH ×6 (00:45→20:30)
[2020-02-02] MEDS: ALBUTEROL SO4 0.5 % INH SOLN 2.5 MG/0.5 ML VIAL.NEB. NEB PRN ×5 (00:45→15:59)
[2020-02-02] MEDS: methylPREDNISolone NA SUCC 40 MG/1 ML VIAL IVPUSH SCH ×3 (02:11→17:45)
[2020-02-02] MEDS: PIPERACILLIN/TAZOB 4.5 GM 4.5 GM in DEXTROSE 5%-WATER 100 ML IVPB SCH ×4 (02:12→21:20)
[2020-02-02] MEDS: CARBIDOPA/LEVODOPA 25/250 TABLET (FP) PO SCH ×6 (06:07→21:31)
[2020-02-02 07:11] LABS: HEMATOCRIT 34.4 % (35.4-49); HEMOGLOBIN 11.3 GM/dL (11.7-16.9); MCH 30.6 pg (25.7-33.7); MCHC 32.8 g/dl (32.0-35.9); PLATELET COUNT 426 K/MM3 (134-434); RDW 14.7 % (11.9-15.9); WHITE BLOOD COUNT 14.4 K/mm3 (4.0-10.0)
[2020-02-02 07:23] LABS: BLOOD UREA NITROGEN 24.7 mg/dL (7-18); CREATININE 0.5 mg/dL (0.55-1.3); MAGNESIUM 2.2 mg/dL (1.8-2.4); PHOSPHOROUS 1.6 mg/dL (2.5-4.9); POTASSIUM 3.6 mmol/L (3.5-5.1)
[2020-02-02] MEDS: MIDAZOLAM IN 0.9 % SOD.CHLORID 100 MG/100 ML PLAST..BAG IVPB SCH ×3 (08:15→21:19)
[2020-02-02] MEDS ORDERED: LORazepam 2 MG/ML SDV VIAL IVPUSH ONE ×2 (08:44→21:41)
[2020-02-02] MEDS ORDERED: LORazepam 2 MG/ML SDV VIAL ONE ×2 (08:45→21:40)
--- NOTE | 2020-02-02 09:59 | PN ---
Progress Note, Physician - Current Medication List Current Medications: Active Medications Acetaminophen (Tylenol Oral Solution -) 650 mg GT Q4H PRN PRN Reason: FEVER Last Admin: 01/31/20 03:14 Dose: 650 mg Documented by: Acetylcysteine (Mucomyst 20 Oral / Inh Use Only*) 200 mg NEB RQ4H AMRITA Last Admin: 02/02/20 04:30 Dose: 200 mg Documented by: Albuterol Sulfate (Ventolin 0.5% -) 1 amp NEB Q4H PRN PRN Reason: SHORT OF BREATH/WHEEZING Last Admin: 02/02/20 04:30 Dose: 1 amp Documented by: Amino Acids (Prosource No Carb Liquid Pkt) 30 ml PO DAILY AMRITA Last Admin: 02/01/20 09:26 Dose: 30 ml Documented by: Carbidopa/Levodopa (Sinemet 25/250 -) 1 each PO 1600,1900,2200 AMRITA Last Admin: 02/01/20 21:36 Dose: 1 each Documented by: Carbidopa/Levodopa (Sinemet 25/250 -) 1 each PO 0700,1000,1300 AMRITA Last Admin: 02/02/20 06:07 Dose: 1 each Documented by: Chlorhexidine Gluconate (Hibiclens For Decolonization -) 1 applic TP HS AMRITA Last Admin: 02/01/20 21:32 Dose: 1 applic Documented by: Enoxaparin Sodium (Lovenox -) 40 mg SQ DAILY AMRITA Last Admin: 02/01/20 09:24 Dose: 40 mg Documented by: Propofol (Diprivan -) 1,000,000 mcg in 100 mls @ 2.449 mls/hr IVPB TITR [facility]RITA; Protocol Last Titration: 02/02/20 08:48 Dose: 40 mcg/kg/min, 19.595 mls/hr Documented by: Fentanyl (Sublimaze Ivpb) 500 mcg in 100 mls @ 16.329 mls/hr IVPB TITR [facility]; Protocol Last Titration: 02/02/20 08:48 Dose: 0.61 mcg/kg/hr, 10 mls/hr Documented by: Piperacillin Sod/Tazobactam (Sod 4.5 gm/ Dextrose) 100 mls @ 200 mls/hr IVPB Q6H-IV [facility]RITA; Protocol Last Admin: 02/02/20 02:12 Dose: 200 mls/hr Documented by: Sodium Chloride (Normal Saline -) 1,000 mls @ 75 mls/hr IV ASDIR AMRITA Last Admin: 02/01/20 18:11 Dose: 75 mls/hr Documented by: Midazolam HCl (Midazolam 100mg/100ml-0.9%Nacl) 100 mg in 100 mls @ 1 mls/hr IVPB TITR [facility]; Protocol Last Infusion: 02/02/20 07:00 Dose: 10 mg/hr, 10 mls/hr Documented by: Norepinephrine Bitartrate (Levophed Bag) 8,000 mcg in 500 mls @ 18.75 mls/hr I VPB TITR [facility]; Protocol Last Titration: 02/01/20 16:32 Dose: 2.5 mcg/min, 9.375 mls/hr Documented by: Levetiracetam (Keppra Injection -) 1,500 mg IVPB BID AMRITA Last Admin: 02/01/20 21:32 Dose: 1,500 mg Documented by: Lorazepam (Ativan Injection -) 2 mg IM ONCE ONE Stop: 02/02/20 10:01 Methylprednisolone Sodium Succinate (Solu-Medrol -) 40 mg IVPUSH Q8H-IV AMRITA Last Admin: 02/02/20 02:11 Dose: 40 mg Documented by: Sodium Chloride ([place] Nasal [place] -) 2 spray NS TID PRN PRN Reason: NASAL CONGESTION Tetrahydrozoline HCl (Visine -) 1 drop OU QID PRN PRN Reason: DRY EYES Last Admin: 01/29/20 17:22 Dose: 1 drop Documented by: - Objective Vital Signs: Vital Signs Temperature 98 F 02/02/20 09:53 Pulse Rate 64 02/02/20 09:53 Respiratory Rate 14 02/02/20 08:00 Blood Pressure 134/74 02/02/20 08:00 O2 Sat by Pulse Oximetry (%) 100 02/02/20 06:00 Labs: CBC, BMP 02/02/20 05:30 02/02/20 05:30 INR, PTT INR 1.10 (0.83-1.09) H 01/25/20 05:35
[2020-02-02] MEDS ORDERED: LORazepam 2 MG/ML SDV VIAL IM ONE (10:00)
[2020-02-02] MEDS ORDERED: PIPERACILLIN/TAZOBACTAM 4.5 GM VIAL IVPB ONE ×4 (10:06→21:30)
[2020-02-02] MEDS ORDERED: DEXTROSE 5%-WATER 100 ML IVPB ONE ×4 (10:06→21:30)
--- NOTE | 2020-02-02 10:08 | PN ---
Progress Note, Physician History of Present Illness: Critical Care note Events noted Chart reviwed pauline last night and saw the patient at 1900 Patient was jerking with ?? seziure activity Received Cerebryx and Versed Now on Keppr a Saw bi tonic movemnets on the legs - Current Medication List Current Medications: Active Medications Acetaminophen (Tylenol Oral Solution -) 650 mg GT Q4H PRN PRN Reason: FEVER Last Admin: 01/31/20 03:14 Dose: 650 mg Documented by: Acetylcysteine (Mucomyst 20 Oral / Inh Use Only*) 200 mg NEB RQ4H AMRITA Last Admin: 02/02/20 04:30 Dose: 200 mg Documented by: Albuterol Sulfate (Ventolin 0.5% -) 1 amp NEB Q4H PRN PRN Reason: SHORT OF BREATH/WHEEZING Last Admin: 02/02/20 04:30 Dose: 1 amp Documented by: Amino Acids (Prosource No Carb Liquid Pkt) 30 ml PO DAILY AMRITA Last Admin: 02/01/20 09:26 Dose: 30 ml Documented by: Carbidopa/Levodopa (Sinemet 25/250 -) 1 each PO 1600,1900,2200 AMRITA Last Admin: 02/01/20 21:36 Dose: 1 each Documented by: Carbidopa/Levodopa (Sinemet 25/250 -) 1 each PO 0700,1000,1300 AMRITA Last Admin: 02/02/20 06:07 Dose: 1 each Documented by: Chlorhexidine Gluconate (Hibiclens For Decolonization -) 1 applic TP HS [facility] Last Admin: 02/01/20 21:32 Dose: 1 applic Documented by: Enoxaparin Sodium (Lovenox -) 40 mg SQ DAILY AMRITA Last Admin: 02/01/20 09:24 Dose: 40 mg Documented by: Propofol (Diprivan -) 1,000,000 mcg in 100 mls @ 2.449 mls/hr IVPB TITR [facility]; Protocol Last Titration: 02/02/20 08:48 Dose: 40 mcg/kg/min, 19.595 mls/hr Documented by: Fentanyl (Sublimaze Ivpb) 500 mcg in 100 mls @ 16.329 mls/hr IVPB TITR [facility]; Protocol Last Titration: 02/02/20 08:48 Dose: 0.61 mcg/kg/hr, 10 mls/hr Documented by: Piperacillin Sod/Tazobactam (Sod 4.5 gm/ Dextrose) 100 mls @ 200 mls/hr IVPB Q6H-IV [facility]RITA; Protocol Last Admin: 02/02/20 02:12 Dose: 200 mls/hr Documented by: Sodium Chloride (Normal Saline -) 1,000 mls @ 75 mls/hr IV ASDIR AMRITA Last Admin: 02/01/20 18:11 Dose: 75 mls/hr Documented by: Midazolam HCl (Midazolam 100mg/100ml-0.9%Nacl) 100 mg in 100 mls @ 1 mls/hr IVPB TITR [facility]; Protocol Last Infusion: 02/02/20 07:00 Dose: 10 mg/hr, 10 mls/hr Documented by: Norepinephrine Bitartrate (Levophed Bag) 8,000 mcg in 500 mls @ 18.75 mls/hr IVPB TITR [facility]; Protocol Last Titration: 02/01/20 16:32 Dose: 2.5 mcg/min, 9.375 mls/hr Documented by: Levetiracetam (Keppra Injection -) 1,500 mg IVPB BID AMRITA Last Admin: 02/01/20 21:32 Dose: 1,500 mg Documented by: Methylprednisolone Sodium Succinate (Solu-Medrol -) 40 mg IVPUSH Q8H-IV AMRITA Last Admin: 02/02/20 02:11 Dose: 40 mg Documented by: Sodium Chloride ([place] Nasal [place] -) 2 spray NS TID PRN PRN Reason: NASAL CONGESTION Tetrahydrozoline HCl (Visine -) 1 drop OU QID PRN PRN Reason: DRY EYES Last Admin: 01/29/20 17:22 Dose: 1 drop Documented by: - Objective Vital Signs: Vital Signs Temperature 98 F 02/02/20 09:53 Pulse Rate 64 02/02/20 09:53 Respiratory Rate 14 02/02/20 08:00 Blood Pressure 134/74 02/02/20 08:00 O2 Sat by Pulse Oximetry (%) 100 02/02/20 06:00 Constitutional: Yes: Well Nourished Eyes: Yes: WNL Neurological: Yes: Other (obtunded no response to pain or verbal doesnt follwo commands pupils pinpoint) Labs: CBC, BMP 02/02/20 05:30 02/02/20 05:30 INR, PTT INR 1.10 (0.83-1.09) H 01/25/20 05:35 Problem List - Problems (1) Parkinson disease Code(s): G20 - PARKINSON'S DISEASE (2) Cardiac arrest Code(s): I46.9 - CARDIAC ARREST, CAUSE UNSPECIFIED Assessment/Plan Saw the Head CT ?? CVA No Anoxia so far Hard to assess with so much sedation Seziure after cardiac arrest is not common Patient is doing poorly due to advanced PSP affecting his respiratory status 1. neuro check 2. Stop Keppra 3. Head CT repeat 24 hours 4. Portable EEG 5. Klonopin for myoclonus aLila Braden via NGT 0.5 mg bid 6. Prolactin level Prognosis poor Case discussed with CANDY
[2020-02-02] MEDS: levETIRAcetam 500 MG/5 ML INJECTION VIAL IVPB SCH (10:10)
[2020-02-02] MEDS: ENOXAPARIN NA (PORCINE) 40 MG/0.4 ML DISP.SYRIN SQ SCH (10:10)
[2020-02-02] MEDS: AMINO ACIDS/PROTEIN HYDROLYS 30 ML LIQUID.PKT PO SCH (10:10)
--- NOTE | 2020-02-02 11:14 | CONSULT ---
Consult Consult Specialty:: Palliative care Referred by:: Ashvin Scott Reason for Consultation:: Goals of care - History of Present Illness Chief Complaint: Progressive 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, acute respiratory failure, s/p cardiac arrest History of Present Illness: 64 year old non-verbal male with PMH of Parkinson's disease with Progressive Supranuclear palsy, dysphagia s/p PEG tube and on t/feeds at baseline. Last admission at [facility] was in November ( discharged 12/30/19) for Aspiration PNA. At his baseline, he is mostly bed bound, and uses the wheelchair to be transported to the bathroom. He was normally able to take a few steps with assistance, responds occasionally to verbal commands, and is alert and oriented, although non-verbal and communicates minimally by hand gestures as per family. He receives Jevity feeds 6 times a day, and has no PO intake. He lives with his , and pt's daughter and son assist their mother with taking care of the patient. EMS was called and pt was found to be hypoxic in the 80s on home oxygen of 4 L on 01/24/20- which improved to 90s after Ambu bagging. In the ER, he was sedated and intubated, septic workup initiated, and admitted to the ICU. In the ER pt again began to desat, CXR showed massive left sided effusion/infiltrate and chest tube was placed with improvement in SpO2.He was started on Zosyn. He is also receiving pressors/ steroids. Pt extubated on 01/28/20, re-intubated s/p Cardiac arrest 01/30. He has not been responsive since the cardiac arrest. However he had seizure activity and is currently on versed, keppra and propofol ( received iv fosphenytoin also yesterday).He is a full code. He also has a stage 2 PU left buttock. He received botox injection for dysphonia recently as per neurology prior to hospitalization. Palliative care consult requested for goals of care. 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: Parkinson's (with 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), Seizure Cardio/Vascular: Yes: HTN Pulmonary: Yes: Pneumonia Gastrointestinal: Yes: Gastritis, Other (PEG tube inserted 2017, normal colonoscopy 07/06/13) Renal/: Yes: BPH Musculoskeletal: Yes: Other (functional quadriplegia) - Past Surgical History Past Surgical History: Yes: Colonoscopy, Upper Endoscopy - Alcohol/Substance Use Hx Alcohol Use: No History of Substance Use: reports: None - Smoking History Smoking history: Unknown if ever smoked Have you smoked in the past 12 months: No - Social History Usual Living Arrangement: With Spouse ADL: Family Assistance History of Recent Travel: No Home Medications - Allergies Allergies/Adverse Reactions: Allergies Allergy/AdvReac Type Severity Reaction Status Date / Time No Known Allergies Allergy Verified 01/24/20 22:44 - Home Medications Home Medications: Ambulatory Orders Doxazosin Mesylate 4 mg PO DAILY 03/09/19 Mirtazapine 30 mg PO DAILY 03/09/19 Multivitamin 1 each GT DAILY #30 tablet 12/29/19 Carbidopa/Levodopa 25/250 [Sinemet 25/250 -] 1 each PO Q3H 01/25/20 Family Medical History Family History: Unable to Obtain Review of Systems Unable to obtain ROS, reason: intubated Physical Exam Vital Signs: Vital Signs Temperature 98 F 02/02/20 10:00 Pulse Rate 64 02/02/20 10:00 Respiratory Rate 14 02/02/20 10:00 Blood Pressure 130/67 02/02/20 10:00 O2 Sat by Pulse Oximetry (%) 100 02/02/20 09:30 Respiratory: Yes: Mechanically Ventilated Neurological: Yes: Unresponsive Labs: CBC, BMP 02/02/20 05:30 02/02/20 05:30 Imaging - Results Chest X-ray: Report Reviewed Cat Scan: Report Reviewed Problem List - Problems (1) Cardiac arrest Code(s): I46.9 - CARDIAC ARREST, CAUSE UNSPECIFIED (2) Pneumonia Code(s): J18.9 - PNEUMONIA, UNSPECIFIED ORGANISM Qualifiers: Pneumonia type: due to unspecified organism Laterality: bilateral Lung location: unspecified part of lung Qualified Code(s): J18.9 - Pneumonia, unspecified organism (3) Respiratory failure Code(s): J96.90 - RESPIRATORY FAILURE, UNSP, UNSP W HYPOXIA OR HYPERCAPNIA Qualifiers: Chronicity: acute Respiratory failure complication: hypoxia Qualified Code(s): J96.01 - Acute respiratory failure with hypoxia (4) Functional quadriplegia Code(s): R53.2 - FUNCTIONAL QUADRIPLEGIA (5) Gastrostomy status Code(s): Z93.1 - GASTROSTOMY STATUS (6) Parkinson disease Code(s): G20 - PARKINSON'S DISEASE (7) Supranuclear palsy Code(s): G23.1 - PROGRESSIVE SUPRANUCLEAR OPHTHALMOPLEGIA Assessment/Plan 64 year old male with PMH of Parkinson's disease with Progressive Supranuclear palsy, dysphagia s/p PEG tube and on t/feeds at baseline. Last admission at [facility] was in November ( discharged 12/30/19) for Aspiration PNA. At his baseline, he is mostly bed bound, and uses the wheelchair to be transported to the bathroom. He was normally able to take a few steps with assistance, responds occasionally to verbal commands, and is alert and oriented, although non-verbal and communicates minimally by hand gestures as per family. He receives Jevity feeds 6 times a day, and has no PO intake. He lives with his , and pt's daughter and son assist their mother with taking care of the patient. EMS was called and pt was found to be hypoxic in the 80s on home oxygen of 4 L on 01/24/20- which improved to 90s after Ambu bagging. In the ER, he was sedated and intubated, septic workup initiated, and admitted to the ICU. In the ER pt again began to desat, CXR showed massive left sided effusion/infiltrate and chest tube was placed with improvement in SpO2.He was started on Zosyn for aspiration pneumonia. He is also receiving pressors/ steroids. Pt extubated on 01/28/20, re-intubated s/p Cardiac arrest 01/30. He has not been responsive since the cardiac arrest. However he had seizure activity and is currently on versed, keppra and propofol ( received iv fosphenytoin also yesterday).He is a full code. He also has a stage 2 PU left buttock. He received botox injection for dysphonia recently as per neurology prior to hospitalization. Palliative care consult requested for goals of care. Parkinsons disease with PSN, bed and w/c bound at baseline, non verbal and on t/feeds recurrent aspiration pneumonia left lung infiltrate/ effusion/ concern for mucus plug acute respiratory failure, vent dependent sepsis pressure ulcer s/p cardiac arrest new onset seizures suspicion for interval infarct seen on CTH Full code Prognosis is guarded. Chances of a meaningful recovery appear slim. Would continue supportive measures for now I reached out to pt's son Esteban Kaplan who requested that I speak to his brother Marj Eusebio at [phone]. I had a detailed discussion with Dr Kaplan. Mr Brett Kaplan was diagnosed with PSN palsy about 7-9 years ago and has been gradually declining since then, more so in the last year when he had 3 hospitalizations for aspiration pneumonia, this being the last one in which he ended up getting intubated. Even prior to the most recent hospitalizations his mental state was minimal communication by hand gestures only and family do not really know what his wishes would have been. We discussed that given his decline over time/ bed bound status and recurrent aspiration pneumonia he would be at risk of recurrent pneumonia/ UTI/ pressure ulcers and a poor quality of life. Dr Kaplan understands that and family has been thinking about advanced directives. However, given the cardiac arrest and sudden change in status( he had been extubated before) family needs some time. They are also awaiting a neurological follow up to ascertain his neurological status. Family wants full code to continue for now. We discussed DNR , withdrawal of care but family want full code for now and will make further decision after discussion with Dr Smart ( neurology). Will follow. Thanku for allowing me to participate in the care of this patient. Please call with questions. Dick Arroyo MD [phone] Total time for chart review, examination, conference and coordination of care- 70 minutes.
[2020-02-02] MEDS: PANTOPRAZOLE SODIUM 40 MG VIAL IVPUSH SCH (13:34)
--- NOTE | 2020-02-02 13:49 | PN ---
Progress Note, Physician Chief Complaint: Acute Hypoxic and Hypercapneic Respiratory Failure Pneumonia suspect Aspiration Sepsis Lactic Acidosis Parkinsons Supranuclear Palsy History of Present Illness: 4 year old non-verbal male with PMH of Parkinson's disease with Supranuclear palsy with PEG tube placed. Last admission at [facility] was in November for Aspiration PNA. Pt unable to communicate and family not present at bedside. As per ER staff, pt was with AMS earlier today, pt is non verbal at baseline but is able to communicate minimally using hand gestures. EMS was called and pt was found to be hypoxic in the 80s on home oxygen of 2L, which improved to 90s after Ambu bagging. In the ER, he was sedated and intubated, septic workup initiated, and admitted to the ICU. In the ER pt again began to desat, CXR showed massive left sided effusion/infiltrate and chest tube was palced with improvement in SpO2. Pt extubated on 01/28/20, re-intubated s/p Cardiac arrest on 01/31/20 Seen by palliative medicine - Current Medication List Current Medications: Active Medications Acetaminophen (Tylenol Oral Solution -) 650 mg GT Q4H PRN PRN Reason: FEVER Last Admin: 01/31/20 03:14 Dose: 650 mg Documented by: Acetylcysteine (Mucomyst 20 Oral / Inh Use Only*) 200 mg NEB RQ4H AMRITA Last Admin: 02/02/20 08:10 Dose: 200 mg Documented by: Albuterol Sulfate (Ventolin 0.5% -) 1 amp NEB Q4H PRN PRN Reason: SHORT OF BREATH/WHEEZING Last Admin: 02/02/20 08:10 Dose: 1 amp Documented by: Amino Acids (Prosource No Carb Liquid Pkt) 30 ml PO DAILY AMRITA Last Admin: 02/02/20 10:10 Dose: 30 ml Documented by: Carbidopa/Levodopa (Sinemet 25/250 -) 1 each PO 1600,1900,2200 AMRITA Last Admin: 02/01/20 21:36 Dose: 1 each Documented by: Carbidopa/Levodopa (Sinemet 25/250 -) 1 each PO 0700,1000,1300 AMRITA Last Admin: 02/02/20 13:34 Dose: 1 each Documented by: Chlorhexidine Gluconate (Hibiclens For Decolonization -) 1 applic TP HS [facility] Last Admin: 02/01/20 21:32 Dose: 1 applic Documented by: Enoxaparin Sodium (Lovenox -) 40 mg SQ DAILY AMRITA Last Admin: 02/02/20 10:10 Dose: 40 mg Documented by: Propofol (Diprivan -) 1,000,000 mcg in 100 mls @ 2.449 mls/hr IVPB TITR AMRITA; Protocol Last Titration: 02/02/20 08:48 Dose: 40 mcg/kg/min, 19.595 mls/hr Documented by: Fentanyl (Sublimaze Ivpb) 500 mcg in 100 mls @ 16.329 mls/hr IVPB TITR AMRITA; Protocol Last Titration: 02/02/20 08:48 Dose: 0.61 mcg/kg/hr, 10 mls/hr Documented by: Piperacillin Sod/Tazobactam (Sod 4.5 gm/ Dextrose) 100 mls @ 200 mls/hr IVPB Q6H-IV AMRITA; Protocol Last Admin: 02/02/20 10:08 Dose: 200 mls/hr Documented by: Sodium Chloride (Normal Saline -) 1,000 mls @ 75 mls/hr IV ASDIR AMRITA Last Admin: 02/01/20 18:11 Dose: 75 mls/hr Documented by: Midazolam HCl (Midazolam 100mg/100ml-0.9%Nacl) 100 mg in 100 mls @ 1 mls/hr IVPB TITR [facility]RITA; Protocol Last Admin: 02/02/20 11:17 Dose: 10 mg/hr, 10 mls/hr Documented by: Norepinephrine Bitartrate (Levophed Bag) 8,000 mcg in 500 mls @ 18.75 mls/hr IVPB TITR [facility]RITA; Protocol Last Titration: 02/01/20 16:32 Dose: 2.5 mcg/min, 9.375 mls/hr Documented by: Levetiracetam (Keppra Injection -) 1,500 mg IVPB BID AMRITA Last Admin: 02/02/20 10:10 Dose: 1,500 mg Documented by: Methylprednisolone Sodium Succinate (Solu-Medrol -) 40 mg IVPUSH Q8H-IV AMRITA Last Admin: 02/02/20 10:11 Dose: 40 mg Documented by: Pantoprazole Sodium (Protonix Iv) 40 mg IVPUSH DAILY AMRITA Last Admin: 02/02/20 13:34 Dose: 40 mg Documented by: Sodium Chloride ([place] Nasal [place] -) 2 spray NS TID PRN PRN Reason: NASAL CONGESTION Tetrahydrozoline HCl (Visine -) 1 drop OU QID PRN PRN Reason: DRY EYES Last Admin: 01/29/20 17:22 Dose: 1 drop Documented by: - Objective Vital Signs: Vital Signs Temperature 98.2 F 02/02/20 13:45 Pulse Rate 67 02/02/20 13:45 Respiratory Rate 14 02/02/20 13:45 Blood Pressure 133/71 02/02/20 13:45 O2 Sat by Pulse Oximetry (%) 100 02/02/20 10:00 Constitutional: Yes: Well Nourished, No Distress, Calm Cardiovascular: Yes: Regular Rate and Rhythm Respiratory: Yes: Regular, CTA Bilaterally, Mechanically Ventilated Gastrointestinal: Yes: Normal Bowel Sounds, Soft Genitourinary: Yes: Merchant Present Extremities: Yes: Other (generalized atrophy) Edema: No Peripheral Pulses WNL: Yes Neurological: Yes: Other (sedated) Labs: CBC, BMP 02/02/20 05:30 02/02/20 05:30 INR, PTT INR 1.10 (0.83-1.09) H 01/25/20 05:35 Problem List - Problems (1) Pneumonia Assessment/Plan: -ID consult -IV Zosyn -IV medrol -Serial CXR's -Pulmonary on board -Bronchodilators -Mech vent -COVID 19 PCR negative -Cultures: Microbiology 01/27/20 07:00 Sputum - Endotrachea Suction/Ventilator Gram Stain - Final 01/25/20 14:00 Sputum - Endotrachea Suction/Ventilator Gram Stain - Final 01/25/20 14:00 Sputum - Endotrachea Suction/Ventilator Sputum Culture - Final Pseudomonas Aeruginosa Staphylococcus Aureus 01/24/20 23:05 Blood - Peripheral Venous Blood Culture - Preliminary NO GROWTH OBTAINED AFTER 48 HOURS, INCUBATION TO CONTINUE FOR 3 DAYS. 01/24/20 23:05 Blood - Peripheral Venous Blood Culture - Preliminary NO GROWTH OBTAINED AFTER 48 HOURS, INCUBATION TO CONTINUE FOR 3 DAYS. 01/24/20 23:15 Urine - Urine - Catheterized Urine Culture - Final NO GROWTH OBTAINED Problems reviewed: Yes Code(s): J18.9 - PNEUMONIA, UNSPECIFIED ORGANISM Qualifiers: Pneumonia type: due to unspecified organism Laterality: bilateral Lung location: unspecified part of lung Qualified Code(s): J18.9 - Pneumonia, unspecified organism (2) Respiratory failure Assessment/Plan: as above -CXR worse-progress opacification of left hemithorax -Left chest tube Problems reviewed: Yes Code(s): J96.90 - RESPIRATORY FAILURE, UNSP, UNSP W HYPOXIA OR HYPERCAPNIA Qualifiers: Chronicity: acute Respiratory failure complication: hypoxia Qualified Code(s): J96.01 - Acute respiratory failure with hypoxia (3) Functional quadriplegia Problems reviewed: Yes Code(s): R53.2 - FUNCTIONAL QUADRIPLEGIA (4) Parkinson disease Problems reviewed: Yes Code(s): G20 - PARKINSON'S DISEASE (5) Supranuclear palsy Assessment/Plan: -Seen by neurology Problems reviewed: Yes Code(s): G23.1 - PROGRESSIVE SUPRANUCLEAR OPHTHALMOPLEGIA (6) Cardiac arrest Assessment/Plan: -re-intubated Problems reviewed: Yes Code(s): I46.9 - CARDIAC ARREST, CAUSE UNSPECIFIED Assessment/Plan See problem list poor prognosis Palliative care consult
--- NOTE | 2020-02-02 15:46 | PN ---
Teaching Attending Note Name of Resident: Daisy Antoine ATTENDING PHYSICIAN STATEMENT I saw and evaluated the patient. I reviewed the resident's note and discussed the case with the resident. I agree with the resident's findings and plan as documented. SUBJECTIVE: Patient seen and examined in the ICU. Events noted. Remains intubated and sedated. Recurrent seizure activity. NE for hemodynamic support. CXR: Improving Left atelectasis due to mucous plugging. Intake & Output 01/30/20 01/31/20 02/01/20 02/02/20 23:59 23:59 23:59 23:59 Intake Total 850 3609.0 4933.0 2080 Output Total 600 1832 664 2487 Balance 250 1929.0 4233.0 630 Weight 146 lb 14.4 oz 148 lb 4 oz 146 lb 3 oz 152 lb 4 oz Last Vital Signs Temp Pulse Resp BP Pulse Ox 98.2 F 67 14 133/71 100 02/02/20 14:00 02/02/20 14:00 02/02/20 14:00 02/02/20 14:00 02/02/20 10:00 Active Medications Acetaminophen (Tylenol Oral Solution -) 650 mg GT Q4H PRN PRN Reason: FEVER Last Admin: 01/31/20 03:14 Dose: 650 mg Documented by: Acetylcysteine (Mucomyst 20 Oral / Inh Use Only*) 200 mg NEB RQ4H AMRITA Last Admin: 02/02/20 11:50 Dose: 200 mg Documented by: Albuterol Sulfate (Ventolin 0.5% -) 1 amp NEB Q4H PRN PRN Reason: SHORT OF BREATH/WHEEZING Last Admin: 02/02/20 11:50 Dose: 1 amp Documented by: Amino Acids (Prosource No Carb Liquid Pkt) 30 ml PO DAILY AMRITA Last Admin: 02/02/20 10:10 Dose: 30 ml Documented by: Carbidopa/Levodopa (Sinemet 25/250 -) 1 each PO 1600,1900,2200 AMRITA Last Admin: 02/01/20 21:36 Dose: 1 each Documented by: Carbidopa/Levodopa (Sinemet 25/250 -) 1 each PO 0700,1000,1300 AMRITA Last Admin: 02/02/20 13:34 Dose: 1 each Documented by: Chlorhexidine Gluconate (Hibiclens For Decolonization -) 1 applic TP HS AMRITA Last Admin: 02/01/20 21:32 Dose: 1 applic Documented by: Enoxaparin Sodium (Lovenox -) 40 mg SQ DAILY AMRITA Last Admin: 02/02/20 10:10 Dose: 40 mg Documented by: Propofol (Diprivan -) 1,000,000 mcg in 100 mls @ 2.449 mls/hr IVPB TITR AMRITA; Protocol Last Titration: 02/02/20 08:48 Dose: 40 mcg/kg/min, 19.595 mls/hr Documented by: Fentanyl (Sublimaze Ivpb) 500 mcg in 100 mls @ 16.329 mls/hr IVPB TITR AMRITA; Protocol Last Titration: 02/02/20 08:48 Dose: 0.61 mcg/kg/hr, 10 mls/hr Documented by: Piperacillin Sod/Tazobactam (Sod 4.5 gm/ Dextrose) 100 mls @ 200 mls/hr IVPB Q6H-IV AMRITA; Protocol Last Admin: 02/02/20 15:12 Dose: 200 mls/hr Documented by: Sodium Chloride (Normal Saline -) 1,000 mls @ 75 mls/hr IV ASDIR AMRITA Last Admin: 02/01/20 18:11 Dose: 75 mls/hr Documented by: Midazolam HCl (Midazolam 100mg/100ml-0.9%Nacl) 100 mg in 100 mls @ 1 mls/hr IVPB TITR AMRITA; Protocol Last Admin: 02/02/20 11:17 Dose: 10 mg/hr, 10 mls/hr Documented by: Norepinephrine Bitartrate (Levophed Bag) 8,000 mcg in 500 mls @ 18.75 mls/hr IVPB TITR AMRITA; Protocol Last Titration: 02/01/20 16:32 Dose: 2.5 mcg/min, 9.375 mls/hr Documented by: Levetiracetam (Keppra Injection -) 1,500 mg IVPB BID AMRITA Last Admin: 02/02/20 10:10 Dose: 1,500 mg Documented by: Methylprednisolone Sodium Succinate (Solu-Medrol -) 40 mg IVPUSH Q8H-IV AMRITA Last Admin: 02/02/20 10:11 Dose: 40 mg Documented by: Pantoprazole Sodium (Protonix Iv) 40 mg IVPUSH DAILY AMRITA Last Admin: 02/02/20 13:34 Dose: 40 mg Documented by: Sodium Chloride ([place] Nasal [place] -) 2 spray NS TID PRN PRN Reason: NASAL CONGESTION Tetrahydrozoline HCl (Visine -) 1 drop OU QID PRN PRN Reason: DRY EYES Last Admin: 01/29/20 17:22 Dose: 1 drop Documented by: GEN: Intubated and sedated PULM: Vented, decreased BS Left, scattered rhonchi CV: S1, S2, RR ABD: + BS, S/S N/T N/D X4Q EXT: + Pulses, WWP X4, (-) edema SANDER HAND: Sedated Laboratory Results - last 24 hr 02/02/20 02/02/20 05:30 05:30 WBC 14.4 H RBC 3.70 L Hgb 11.3 L Hct 34.4 L MCV 93.0 MCH 30.6 MCHC 32.8 RDW 14.7 Plt Count 426 D MPV 8.0 Sodium 143 Potassium 3.6 Chloride 105 Carbon Dioxide 34 H Anion Gap 4 L BUN 24.7 H Creatinine 0.5 L Est GFR (CKD-EPI)AfAm 130.88 Est GFR (CKD-EPI)NonAf 112.92 Random Glucose 136 H Calcium 8.0 L Phosphorus 1.6 L Magnesium 2.2 ASSESS: S/P CP arrest Left mucous plugging Acute Hypoxic and Hypercapneic Respiratory Failure Pneumonia suspect Aspiration Sepsis Lactic Acidosis Parkinsons Supranuclear Palsy PLAN: - AC Mode of vent - Mucomyst / Steroids - Aggressive CPT - Bronchodilators - Zosyn per ID - monitor urine output, creatinine - Aspiration precautions - DVT/GI prophylaxis - Requires ICU monitoring Will need further family discussions for C Dr Scott Critical care time spent in reviewing chart, evaluating patient and formulating plan - 36 minutes.
[2020-02-02] MEDS ORDERED: FENTANYL NS IVPB 500 MCG/100 ML BAG IVPB ONE (15:51)
--- NOTE | 2020-02-02 16:20 | PN ---
Physical Exam: SUBJECTIVE: Patient seen and examined bedside. Still have myclonus jerking movements in the legs. No events overnight. Plan for head CT this morning. OBJECTIVE: Last Vital Signs Temp Pulse Resp BP Pulse Ox 98.2 F 67 14 133/71 100 02/02/20 14:00 02/02/20 14:00 02/02/20 14:00 02/02/20 14:00 02/02/20 10:00 GENERAL: The patient is sedated and intubated HEAD: Normal with no signs of trauma. EYES: PERRL ENT: Intubated, LIJ in place LUNGS: Decreased left sided breath sounds HEART: RRR ABDOMEN: Soft, nontender, nondistended EXTREMITIES: no edema. Jerking movements in legs present SKIN: Warm, dry, no rashes or lesions noted Intake & Output 01/30/20 01/31/20 02/01/20 02/02/20 23:59 23:59 23:59 23:59 Intake Total 850 3609.0 4933.0 2080 Output Total 600 6742 899 5220 Balance 250 1929.0 4233.0 630 Weight 146 lb 14.4 oz 148 lb 4 oz 146 lb 3 oz 152 lb 4 oz Laboratory Results - last 24 hr 02/02/20 02/02/20 05:30 05:30 WBC 14.4 H RBC 3.70 L Hgb 11.3 L Hct 34.4 L MCV 93.0 MCH 30.6 MCHC 32.8 RDW 14.7 Plt Count 426 D MPV 8.0 Sodium 143 Potassium 3.6 Chloride 105 Carbon Dioxide 34 H Anion Gap 4 L BUN 24.7 H Creatinine 0.5 L Est GFR (CKD-EPI)AfAm 130.88 Est GFR (CKD-EPI)NonAf 112.92 Random Glucose 136 H Calcium 8.0 L Phosphorus 1.6 L Magnesium 2.2 Active Medications Generic Name Dose Route Start Last Admin Trade Name Freq PRN Reason Stop Dose Admin Acetaminophen 650 mg 01/27/20 17:27 01/31/20 03:14 Tylenol Oral Solution - GT 650 mg Q4H PRN Administration FEVER Acetylcysteine 200 mg 01/29/20 16:12 02/02/20 15:59 Mucomyst 20 Oral / Inh Use Only* NEB 200 mg RQ4H AMRITA Administration Albuterol Sulfate 1 amp 01/31/20 03:03 02/02/20 15:59 Ventolin 0.5% - NEB 1 amp Q4H PRN Administration SHORT OF BREATH/WHEEZING Amino Acids 30 ml 01/27/20 12:00 02/02/20 10:10 Prosource No Carb Liquid Pkt PO 30 ml DAILY AMRITA Administration Carbidopa/Levodopa 1 each 01/29/20 16:00 02/02/20 15:56 Sinemet 25/250 - PO 1 each 1600,1900,2200 AMRITA Administration Carbidopa/Levodopa 1 each 01/30/20 07:00 02/02/20 13:34 Sinemet 25/250 - PO 1 each 0700,1000,1300 AMRITA Administration Chlorhexidine Gluconate 1 applic 01/25/20 22:00 02/01/20 21:32 Hibiclens For Decolonization - TP 1 applic HS AMRITA Administration Enoxaparin Sodium 40 mg 01/25/20 10:00 02/02/20 10:10 Lovenox - SQ 40 mg DAILY AMRITA Administration Propofol 1,000,000 mcg in 100 mls @ 2.449 mls/hr 01/24/20 22:45 02/02/20 08:48 Diprivan - IVPB 40 mcg/kg/min TITR AMRITA 19.595 mls/hr Titration Protocol 5 MCG/KG/MIN Fentanyl 500 mcg in 100 mls @ 16.329 mls/hr 01/25/20 05:00 02/02/20 08:48 Sublimaze Ivpb IVPB 0.61 mcg/kg/hr TITR AMRITA 10 mls/hr Titration Protocol 1 MCG/KG/HR Piperacillin Sod/Tazobactam 100 mls @ 200 mls/hr 01/25/20 10:27 02/02/20 15:12 Sod 4.5 gm/ Dextrose IVPB 200 mls/hr Q6H-IV AMRITA Administration Protocol Sodium Chloride 1,000 mls @ 75 mls/hr 01/27/20 17:27 02/01/20 18:11 Normal Saline - IV 75 mls/hr ASDIR AMRITA Administration Midazolam HCl 100 mg in 100 mls @ 1 mls/hr 01/31/20 08:15 02/02/20 11:17 Midazolam 100mg/100ml-0.9%Nacl IVPB 10 mg/hr TITR AMRITA 10 mls/hr Administration Protocol 1 MG/HR Norepinephrine Bitartrate 8,000 mcg in 500 mls @ 18.75 mls/hr 02/01/20 15:30 02/01/20 16:32 Levophed Bag IVPB 2.5 mcg/min TITR AMRITA 9.375 mls/hr Titration Protocol 5 MCG/MIN Levetiracetam 1,500 mg 02/01/20 11:15 02/02/20 10:10 Keppra Injection - IVPB 1,500 mg BID AMRITA Administration Methylprednisolone Sodium Succinate 40 mg 01/31/20 13:00 02/02/20 10:11 Solu-Medrol - IVPUSH 40 mg Q8H-IV AMRITA Administration Pantoprazole Sodium 40 mg 02/02/20 12:45 02/02/20 13:34 Protonix Iv IVPUSH 40 mg DAILY AMRITA Administration Sodium Chloride 2 spray 01/30/20 06:54 [place] Nasal [place] - NS TID PRN NASAL CONGESTION Tetrahydrozoline HCl 1 drop 01/27/20 18:51 01/29/20 17:22 Visine - OU 1 drop QID PRN Administration DRY EYES ASSESSMENT/PLAN: ASSESSMENT/PLAN: 64 YO M PMH HTN, BPH, Parkinson's disease with Supranuclear palsy (with PEG tube in RUQ). Found to have PNA. Admitted to ICU for Acute hypoxic, hypercapnic respiratory failure 2/2 PNA. Neuro - re-intubated 01/30, sedation restarted - Parkinson's on sinemet - patient started having seizures with what appear to myoclonus jerks: most likely 2/2 hypoxic brain injury - gave 1500 keppra, 2mg IV ativan, jerks continued. - Gave fosphenytoin 1000 mg, then when persisted, gave 1200 phenobarbital. - CT head: chronic ischemic changes - Left message for Dr. Samrt, waiting to hear back Pulm - Acute hypoxic, hypercapnic respiratory failure 2/2 PNA - S/p chest tube for pleural effusion/infiltrate - reintubated 01/30, CXR Left hemithorax compatible w/atelectasis >> CXR shows some improvement - continue mucomyst nebs and ventolin - solumedrol 40 mg q8h Cardio - Cardiology consulted (Dr. Jauregui) He has a right bundle branch block. Possibly lateral ST elevations. There is no need for further cardiac work-up nor testing in this setting. - on pressors ID -sputum cx: pseudomonas aeruginosa & staph aureus. - ID consulted (Dr. Serrato) Zosyn day 8 Renal - monitor BUN/Cr Palliative Dr. Arroyo consulted family needs some time They are also awaiting a neurological follow up to ascertain his neurological status. Family wants full code to continue for now. We discussed DNR , withdrawal of care but family want full code for now and will make further decision after discussion with Dr Smart FEN - tube feeds DVT Ppx Lovenox 40 mg SQ GI Ppx - none Lines - RUQ peg - family wants J peg discussed - LIJ placed 01/31 Visit type - Emergency Visit Emergency Visit: Yes ED Registration Date: 01/24/20 Care time: The patient presented to the Emergency Department on the above date and was hospitalized for further evaluation of their emergent condition. - New Patient This patient is new to me today: No - Critical Care Critical Care patient: Yes Total Critical Care Time (in minutes): 36 Critical Care Statement: The care of this patient involved high complexity decision making to prevent further life threatening deterioration of the patient's condition and/or to evaluate & treat vital organ system(s) failure or risk of failure. - Discharge Referral Referred to [facility] Med P.C.: No - Medication Review Med list reviewed for High Risk Meds patients 65 and older: Yes ATTENDING PHYSICIAN STATEMENT I saw and evaluated the patient. I reviewed the resident's note and discussed the case with the resident. I agree with the resident's findings and plan as documented. SUBJECTIVE: OBJECTIVE: ASSESSMENT AND PLAN:
[2020-02-02] MEDS: SODIUM CHLORIDE 1,000 ML IV SCH (17:45)
[2020-02-02] MEDS: CHLORHEXIDINE GLUCONATE 4% CLEANSER FOR DECOLONIZATION TP SCH (21:21)
[2020-02-02] MEDS ORDERED: levETIRAcetam 500 MG/5 ML INJECTION VIAL IVPB ONE (21:29)
[2020-02-02] MEDS: levETIRAcetam 500 MG/5 ML INJECTION VIAL IVPB ONE ×2 (21:33→21:48)
[2020-02-02] MEDS ORDERED: MIDAZOLAM HCL 5 MG/1 ML Single Dose Vial ONE (21:40)
[2020-02-02] MEDS: NOREPINEPHRINE BITARTRATE 8,000 MCG/500 ML BAG IVPB SCH (22:14)
[2020-02-03] MEDS: ACETYLCYSTEINE 20% 200MG/ML 4 ML VIAL *FOR ORAL / INH USE ONLY NEB SCH ×6 (00:30→20:35)
[2020-02-03] MEDS: methylPREDNISolone NA SUCC 40 MG/1 ML VIAL IVPUSH SCH ×3 (01:40→17:56)
[2020-02-03] MEDS: PIPERACILLIN/TAZOB 4.5 GM 4.5 GM in DEXTROSE 5%-WATER 100 ML IVPB SCH ×4 (02:56→21:30)
[2020-02-03] MEDS: CARBIDOPA/LEVODOPA 25/250 TABLET (FP) PO SCH ×6 (06:18→21:30)
[2020-02-03 06:47] LABS: HEMATOCRIT 35.3 % (35.4-49); HEMOGLOBIN 11.4 GM/dL (11.7-16.9); MCH 30.1 pg (25.7-33.7); MCHC 32.4 g/dl (32.0-35.9); PLATELET COUNT 429 K/MM3 (134-434); RDW 15.1 % (11.9-15.9); WHITE BLOOD COUNT 12.2 K/mm3 (4.0-10.0)
[2020-02-03 07:17] LABS: ALBUMIN 1.8 g/dl (3.4-5.0); BILIRUBIN,TOTAL 0.3 mg/dL (0.2-1); BLOOD UREA NITROGEN 17.2 mg/dL (7-18); CALCIUM 8.1 mg/dL (8.5-10.1); CREATININE 0.5 mg/dL (0.55-1.3); MAGNESIUM 2.1 mg/dL (1.8-2.4); POTASSIUM 4.1 mmol/L (3.5-5.1); TOT PROT 5.4 g/dl (6.4-8.2)
[2020-02-03] MEDS: ALBUTEROL SO4 0.5 % INH SOLN 2.5 MG/0.5 ML VIAL.NEB. NEB PRN ×4 (07:40→20:35)
[2020-02-03] MEDS ORDERED: PIPERACILLIN/TAZOBACTAM 4.5 GM VIAL IVPB ONE ×3 (08:03→21:27)
[2020-02-03] MEDS ORDERED: DEXTROSE 5%-WATER 100 ML IVPB ONE ×3 (08:03→21:27)
[2020-02-03] MEDS: AMINO ACIDS/PROTEIN HYDROLYS 30 ML LIQUID.PKT PO SCH ×2 (08:13→17:58)
[2020-02-03] MEDS: ENOXAPARIN NA (PORCINE) 40 MG/0.4 ML DISP.SYRIN SQ SCH (09:10)
[2020-02-03] MEDS: clonazePAM 0.5 MG TABLET GT PRN (09:11)
[2020-02-03] MEDS: MIDAZOLAM IN 0.9 % SOD.CHLORID 100 MG/100 ML PLAST..BAG IVPB SCH (09:15)
[2020-02-03] MEDS: PANTOPRAZOLE SODIUM 40 MG VIAL IVPUSH SCH (09:15)
--- NOTE | 2020-02-03 11:15 | PN ---
Progress Note, Physician Chief Complaint: Acute Hypoxic and Hypercapneic Respiratory Failure Pneumonia suspect Aspiration Sepsis Lactic Acidosis Parkinsons Supranuclear Palsy History of Present Illness: 4 year old non-verbal male with PMH of Parkinson's disease with Supranuclear palsy with PEG tube placed. Last admission at [facility] was in November for Aspiration PNA. Pt unable to communicate and family not present at bedside. As per ER staff, pt was with AMS earlier today, pt is non verbal at baseline but is able to communicate minimally using hand gestures. EMS was called and pt was found to be hypoxic in the 80s on home oxygen of 2L, which improved to 90s after Ambu bagging. In the ER, he was sedated and intubated, septic workup initiated, and admitted to the ICU. In the ER pt again began to desat, CXR showed massive left sided effusion/infiltrate and chest tube was palced with improvement in SpO2. Pt extubated on 01/28/20, re-intubated s/p Cardiac arrest on 01/31/20 Seen by palliative medicine - Current Medication List Current Medications: Active Medications Acetaminophen (Tylenol Oral Solution -) 650 mg GT Q4H PRN PRN Reason: FEVER Last Admin: 01/31/20 03:14 Dose: 650 mg Documented by: Acetylcysteine (Mucomyst 20 Oral / Inh Use Only*) 200 mg NEB RQ4H AMRITA Last Admin: 02/03/20 07:40 Dose: 200 mg Documented by: Albuterol Sulfate (Ventolin 0.5% -) 1 amp NEB Q4H PRN PRN Reason: SHORT OF BREATH/WHEEZING Last Admin: 02/03/20 07:40 Dose: 1 amp Documented by: Amino Acids (Prosource No Carb Liquid Pkt) 30 ml PO BIDWM AMRITA Last Admin: 02/03/20 08:13 Dose: 30 ml Documented by: Carbidopa/Levodopa (Sinemet 25/250 -) 1 each PO 1600,1900,2200 AMRITA Last Admin: 02/02/20 21:31 Dose: 1 each Documented by: Carbidopa/Levodopa (Sinemet 25/250 -) 1 each PO 0700,1000,1300 AMRITA Last Admin: 02/03/20 09:14 Dose: 1 each Documented by: Chlorhexidine Gluconate (Hibiclens For Decolonization -) 1 applic TP HS [facility] Last Admin: 02/02/20 21:21 Dose: 1 applic Documented by: Clonazepam (Klonopin -) 0.5 mg GT Q12H PRN PRN Reason: MUSCLE SPASMS Last Admin: 02/03/20 09:11 Dose: 0.5 mg Documented by: Enoxaparin Sodium (Lovenox -) 40 mg SQ DAILY AMRITA Last Admin: 02/03/20 09:10 Dose: 40 mg Documented by: Propofol (Diprivan -) 1,000,000 mcg in 100 mls @ 2.449 mls/hr IVPB TITR AMRITA; Protocol Last Titration: 02/02/20 21:11 Dose: 20 mcg/kg/min, 9.798 mls/hr Documented by: Fentanyl (Sublimaze Ivpb) 500 mcg in 100 mls @ 16.329 mls/hr IVPB TITR AMRITA; Protocol Last Titration: 02/02/20 21:28 Dose: 1.22 mcg/kg/hr, 20 mls/hr Documented by: Piperacillin Sod/Tazobactam (Sod 4.5 gm/ Dextrose) 100 mls @ 200 mls/hr IVPB Q6H-IV AMRITA; Protocol Last Admin: 02/03/20 08:12 Dose: 200 mls/hr Documented by: Sodium Chloride (Normal Saline -) 1,000 mls @ 75 mls/hr IV ASDIR AMRITA Last Admin: 02/02/20 17:45 Dose: 75 mls/hr Documented by: Midazolam HCl (Midazolam 100mg/100ml-0.9%Nacl) 100 mg in 100 mls @ 1 mls/hr IVPB TITR AMRITA; Protocol Last Admin: 02/03/20 09:15 Dose: 10 mg/hr, 10 mls/hr Documented by: Norepinephrine Bitartrate (Levophed Bag) 8,000 mcg in 500 mls @ 18.75 mls/hr IVPB TITR AMRITA; Protocol Last Admin: 02/02/20 22:14 Dose: Not Given Documented by: Methylprednisolone Sodium Succinate (Solu-Medrol -) 40 mg IVPUSH Q8H-IV AMRITA Last Admin: 02/03/20 09:11 Dose: 40 mg Documented by: Pantoprazole Sodium (Protonix Iv) 40 mg IVPUSH DAILY AMRITA Last Admin: 02/03/20 09:15 Dose: 40 mg Documented by: Sodium Chloride ([place] Nasal [place] -) 2 spray NS TID PRN PRN Reason: NASAL CONGESTION Tetrahydrozoline HCl (Visine -) 1 drop OU QID PRN PRN Reason: DRY EYES Last Admin: 01/29/20 17:22 Dose: 1 drop Documented by: - Objective Vital Signs: Vital Signs Temperature 98.6 F 02/03/20 06:00 Pulse Rate 64 02/03/20 08:15 Respiratory Rate 14 02/03/20 09:00 Blood Pressure 153/69 02/03/20 06:00 O2 Sat by Pulse Oximetry (%) 99 02/03/20 09:00 Constitutional: Yes: Well Nourished, No Distress, Calm Cardiovascular: Yes: Regular Rate and Rhythm Respiratory: Yes: Regular, CTA Bilaterally, Mechanically Ventilated Gastrointestinal: Yes: Normal Bowel Sounds, Soft Genitourinary: Yes: Merchant Present Edema: No Peripheral Pulses WNL: Yes Neurological: Yes: Other (sedated) Labs: CBC, BMP 02/03/20 06:00 02/03/20 06:00 INR, PTT INR 1.10 (0.83-1.09) H 01/25/20 05:35 Problem List - Problems (1) Pneumonia Assessment/Plan: -ID consult -IV Zosyn -IV medrol -Serial CXR's -Pulmonary on board -Bronchodilators -Mech vent -COVID 19 PCR negative -Cultures: Microbiology 01/27/20 07:00 Sputum - Endotrachea Suction/Ventilator Gram Stain - Final 01/25/20 14:00 Sputum - Endotrachea Suction/Ventilator Gram Stain - Final 01/25/20 14:00 Sputum - Endotrachea Suction/Ventilator Sputum Culture - Final Pseudomonas Aeruginosa Staphylococcus Aureus 01/24/20 23:05 Blood - Peripheral Venous Blood Culture - Preliminary NO GROWTH OBTAINED AFTER 48 HOURS, INCUBATION TO CONTINUE FOR 3 DAYS. 01/24/20 23:05 Blood - Peripheral Venous Blood Culture - Preliminary NO GROWTH OBTAINED AFTER 48 HOURS, INCUBATION TO CONTINUE FOR 3 DAYS. 01/24/20 23:15 Urine - Urine - Catheterized Urine Culture - Final NO GROWTH OBTAINED Problems reviewed: Yes Code(s): J18.9 - PNEUMONIA, UNSPECIFIED ORGANISM Qualifiers: Pneumonia type: due to unspecified organism Laterality: bilateral Lung location: unspecified part of lung Qualified Code(s): J18.9 - Pneumonia, unspecified organism (2) Respiratory failure Assessment/Plan: as above -CXR worse-progress opacification of left hemithorax -Left chest tube Problems reviewed: Yes Code(s): J96.90 - RESPIRATORY FAILURE, UNSP, UNSP W HYPOXIA OR HYPERCAPNIA Qualifiers: Chronicity: acute Respiratory failure complication: hypoxia Qualified Code(s): J96.01 - Acute respiratory failure with hypoxia (3) Functional quadriplegia Problems reviewed: Yes Code(s): R53.2 - FUNCTIONAL QUADRIPLEGIA (4) Parkinson disease Problems reviewed: Yes Code(s): G20 - PARKINSON'S DISEASE (5) Supranuclear palsy Assessment/Plan: -Seen by neurology Problems reviewed: Yes Code(s): G23.1 - PROGRESSIVE SUPRANUCLEAR OPHTHALMOPLEGIA (6) Cardiac arrest Assessment/Plan: -re-intubated Problems reviewed: Yes Code(s): I46.9 - CARDIAC ARREST, CAUSE UNSPECIFIED Assessment/Plan See problem list poor prognosis Palliative care consult
[2020-02-03] MEDS ORDERED: LORazepam 2 MG/ML SDV VIAL ONE (14:19)
[2020-02-03] MEDS ORDERED: LORazepam 2 MG/ML SDV VIAL IVPUSH ONE ×2 (14:20→14:21)
[2020-02-03] MEDS ORDERED: FOSPHENYTOIN SODIUM 1,000 MG in SODIUM CHLORIDE 100 ML IVPB ONE (14:22)
--- NOTE | 2020-02-03 14:35 | PN ---
Progress Note, Physician History of Present Illness: continues to be intubated remains afebrile seizure activities - Current Medication List Current Medications: Active Medications Acetaminophen (Tylenol Oral Solution -) 650 mg GT Q4H PRN PRN Reason: FEVER Last Admin: 01/31/20 03:14 Dose: 650 mg Documented by: Acetylcysteine (Mucomyst 20 Oral / Inh Use Only*) 200 mg NEB RQ4H AMRITA Last Admin: 02/03/20 11:45 Dose: 200 mg Documented by: Albuterol Sulfate (Ventolin 0.5% -) 1 amp NEB Q4H PRN PRN Reason: SHORT OF BREATH/WHEEZING Last Admin: 02/03/20 11:45 Dose: 1 amp Documented by: Amino Acids (Prosource No Carb Liquid Pkt) 30 ml PO BIDWM AMRITA Last Admin: 02/03/20 08:13 Dose: 30 ml Documented by: Carbidopa/Levodopa (Sinemet 25/250 -) 1 each PO 1600,1900,2200 AMRITA Last Admin: 02/02/20 21:31 Dose: 1 each Documented by: Carbidopa/Levodopa (Sinemet 25/250 -) 1 each PO 0700,1000,1300 AMRITA Last Admin: 02/03/20 09:14 Dose: 1 each Documented by: Chlorhexidine Gluconate (Hibiclens For Decolonization -) 1 applic TP HS [facility] Last Admin: 02/02/20 21:21 Dose: 1 applic Documented by: Clonazepam (Klonopin -) 0.5 mg GT Q12H PRN PRN Reason: MUSCLE SPASMS Last Admin: 02/03/20 09:11 Dose: 0.5 mg Documented by: Enoxaparin Sodium (Lovenox -) 40 mg SQ DAILY [facility] Last Admin: 02/03/20 09:10 Dose: 40 mg Documented by: Propofol (Diprivan -) 1,000,000 mcg in 100 mls @ 2.449 mls/hr IVPB TITR [facility]; Protocol Last Titration: 02/02/20 21:11 Dose: 20 mcg/kg/min, 9.798 mls/hr Documented by: Fentanyl (Sublimaze Ivpb) 500 mcg in 100 mls @ 16.329 mls/hr IVPB TITR [facility]; Protocol Last Titration: 02/02/20 21:28 Dose: 1.22 mcg/kg/hr, 20 mls/hr Documented by: Piperacillin Sod/Tazobactam (Sod 4.5 gm/ Dextrose) 100 mls @ 200 mls/hr IVPB Q6H-IV AMRITA; Protocol Last Admin: 02/03/20 08:12 Dose: 200 mls/hr Documented by: Sodium Chloride (Normal Saline -) 1,000 mls @ 75 mls/hr IV ASDIR AMRITA Last Admin: 02/02/20 17:45 Dose: 75 mls/hr Documented by: Midazolam HCl (Midazolam 100mg/100ml-0.9%Nacl) 100 mg in 100 mls @ 1 mls/hr IVPB TITR AMRITA; Protocol Last Admin: 02/03/20 09:15 Dose: 10 mg/hr, 10 mls/hr Documented by: Norepinephrine Bitartrate (Levophed Bag) 8,000 mcg in 500 mls @ 18.75 mls/hr IVPB TITR AMRITA; Protocol Last Admin: 02/02/20 22:14 Dose: Not Given Documented by: Lorazepam (Ativan Injection -) 4 mg IVPUSH ONCE ONE Stop: 02/03/20 14:22 Methylprednisolone Sodium Succinate (Solu-Medrol -) 40 mg IVPUSH Q8H-IV AMRITA Last Admin: 02/03/20 09:11 Dose: 40 mg Documented by: Pantoprazole Sodium (Protonix Iv) 40 mg IVPUSH DAILY [facility] Last Admin: 02/03/20 09:15 Dose: 40 mg Documented by: Sodium Chloride ([place] Nasal [place] -) 2 spray NS TID PRN PRN Reason: NASAL CONGESTION Tetrahydrozoline HCl (Visine -) 1 drop OU QID PRN PRN Reason: DRY EYES Last Admin: 01/29/20 17:22 Dose: 1 drop Documented by: - Objective Vital Signs: Vital Signs Temperature 98.9 F 02/03/20 10:00 Pulse Rate 76 02/03/20 12:00 Respiratory Rate 14 02/03/20 12:20 Blood Pressure 118/61 02/03/20 12:00 O2 Sat by Pulse Oximetry (%) 97 02/03/20 12:22 Constitutional: Yes: Other Cardiovascular: Yes: S1, S2 Respiratory: Yes: Intubated, Mechanically Ventilated Gastrointestinal: Yes: Normal Bowel Sounds, Soft Musculoskeletal: Yes: WNL Extremities: Yes: Other Neurological: Yes: Other (seizures) Labs: CBC, BMP 02/03/20 06:00 02/03/20 06:00 INR, PTT INR 1.10 (0.83-1.09) H 01/25/20 05:35 - ....Imaging Cat Scan: Image Reviewed Assessment/Plan this patient with multiple medical issues coming in with ams and resp failure and now intubated Acute Hypoxic and Hypercapneic Respiratory Failure Pneumonia suspect Aspiration Sepsis Lactic Acidosis Parkinsons Supranuclear Palsy cardiac arrest seizures plan continue icu care iv abx organisms noted resp support close watch cc 37 min
--- NOTE | 2020-02-03 14:43 | PN ---
Teaching Attending Note Name of Resident: Daisy Antoine ATTENDING PHYSICIAN STATEMENT I saw and evaluated the patient. I reviewed the resident's note and discussed the case with the resident. I agree with the resident's findings and plan as documented. SUBJECTIVE: Patient seen and examined in the ICU. Remains intubated and sedated. Recurrent myoclonus noted. NE for hemodynamic support. CXR: Improving Left atelectasis due to mucous plugging. Intake & Output 01/31/20 02/01/20 02/02/20 02/03/20 23:59 23:59 23:59 23:59 Intake Total 3609.0 4933.0 4666.4 2204 Output Total 0731 468 3516 2250 Balance 1929.0 4233.0 3216.4 -46 Weight 148 lb 4 oz 146 lb 3 oz 152 lb 4 oz 156 lb 3 oz Last Vital Signs Temp Pulse Resp BP Pulse Ox 98.9 F 76 14 118/61 97 02/03/20 10:00 02/03/20 12:00 02/03/20 12:20 02/03/20 12:00 02/03/20 12:22 Active Medications Acetaminophen (Tylenol Oral Solution -) 650 mg GT Q4H PRN PRN Reason: FEVER Last Admin: 01/31/20 03:14 Dose: 650 mg Documented by: Acetylcysteine (Mucomyst 20 Oral / Inh Use Only*) 200 mg NEB RQ4H AMRITA Last Admin: 02/03/20 11:45 Dose: 200 mg Documented by: Albuterol Sulfate (Ventolin 0.5% -) 1 amp NEB Q4H PRN PRN Reason: SHORT OF BREATH/WHEEZING Last Admin: 02/03/20 11:45 Dose: 1 amp Documented by: Amino Acids (Prosource No Carb Liquid Pkt) 30 ml PO BIDWM AMRITA Last Admin: 02/03/20 08:13 Dose: 30 ml Documented by: Carbidopa/Levodopa (Sinemet 25/250 -) 1 each PO 1600,1900,2200 AMRITA Last Admin: 02/02/20 21:31 Dose: 1 each Documented by: Carbidopa/Levodopa (Sinemet 25/250 -) 1 each PO 0700,1000,1300 AMRITA Last Admin: 02/03/20 09:14 Dose: 1 each Documented by: Chlorhexidine Gluconate (Hibiclens For Decolonization -) 1 applic TP HS AMRITA Last Admin: 02/02/20 21:21 Dose: 1 applic Documented by: Clonazepam (Klonopin -) 0.5 mg GT Q12H PRN PRN Reason: MUSCLE SPASMS Last Admin: 02/03/20 09:11 Dose: 0.5 mg Documented by: Enoxaparin Sodium (Lovenox -) 40 mg SQ DAILY AMRITA Last Admin: 02/03/20 09:10 Dose: 40 mg Documented by: Propofol (Diprivan -) 1,000,000 mcg in 100 mls @ 2.449 mls/hr IVPB TITR AMRITA; Protocol Last Titration: 02/02/20 21:11 Dose: 20 mcg/kg/min, 9.798 mls/hr Documented by: Fentanyl (Sublimaze Ivpb) 500 mcg in 100 mls @ 16.329 mls/hr IVPB TITR AMRITA; Protocol Last Titration: 02/02/20 21:28 Dose: 1.22 mcg/kg/hr, 20 mls/hr Documented by: Piperacillin Sod/Tazobactam (Sod 4.5 gm/ Dextrose) 100 mls @ 200 mls/hr IVPB Q6H-IV AMRITA; Protocol Last Admin: 02/03/20 08:12 Dose: 200 mls/hr Documented by: Sodium Chloride (Normal Saline -) 1,000 mls @ 75 mls/hr IV ASDIR AMRITA Last Admin: 02/02/20 17:45 Dose: 75 mls/hr Documented by: Midazolam HCl (Midazolam 100mg/100ml-0.9%Nacl) 100 mg in 100 mls @ 1 mls/hr IVPB TITR AMRITA; Protocol Last Admin: 02/03/20 09:15 Dose: 10 mg/hr, 10 mls/hr Documented by: Norepinephrine Bitartrate (Levophed Bag) 8,000 mcg in 500 mls @ 18.75 mls/hr IVPB TITR AMRITA; Protocol Last Admin: 02/02/20 22:14 Dose: Not Given Documented by: Fosphenytoin Sodium 1,000 mg/ (Sodium Chloride) 120 mls @ 480 mls/hr IVPB ONCE ONE Stop: 02/03/20 14:23 Methylprednisolone Sodium Succinate (Solu-Medrol -) 40 mg IVPUSH Q8H-IV AMRITA Last Admin: 02/03/20 09:11 Dose: 40 mg Documented by: Pantoprazole Sodium (Protonix Iv) 40 mg IVPUSH DAILY AMRITA Last Admin: 02/03/20 09:15 Dose: 40 mg Documented by: Sodium Chloride ([place] Nasal [place] -) 2 spray NS TID PRN PRN Reason: NASAL CONGESTION Tetrahydrozoline HCl (Visine -) 1 drop OU QID PRN PRN Reason: DRY EYES Last Admin: 01/29/20 17:22 Dose: 1 drop Documented by: GEN: Intubated and sedated PULM: Vented, decreased BS Left, scattered rhonchi CV: S1, S2, RR ABD: + BS, S/S N/T N/D X4Q EXT: + Pulses, WWP X4, (-) edema 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: 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 Laboratory Results - last 24 hr 02/03/20 02/03/20 06:00 06:00 WBC 12.2 H RBC 3.80 L Hgb 11.4 L Hct 35.3 L MCV 93.0 MCH 30.1 MCHC 32.4 RDW 15.1 Plt Count 429 MPV 8.0 Sodium 141 Potassium 4.1 Chloride 104 Carbon Dioxide 36 H Anion Gap 2 L BUN 17.2 Creatinine 0.5 L Est GFR (CKD-EPI)AfAm 130.88 Est GFR (CKD-EPI)NonAf 112.92 Random Glucose 177 H Calcium 8.1 L Phosphorus 2.0 L Magnesium 2.1 Total Bilirubin 0.3 AST 10 L ALT 8 L Alkaline Phosphatase 61 Total Protein 5.4 L Albumin 1.8 L ASSESS: S/P CP arrest with AMANDA Left mucous plugging Acute Hypoxic and Hypercapneic Respiratory Failure Pneumonia suspect Aspiration Sepsis Lactic Acidosis Parkinsons Supranuclear Palsy PLAN: - AC Mode of vent - Mucomyst / Steroids - Aggressive CPT - Bronchodilators - Zosyn per ID - monitor urine output, creatinine - Aspiration precautions - DVT/GI prophylaxis - Requires ICU monitoring Will need further family discussions for GOC as overall prognosis is grave Dr Scott Critical care time spent in reviewing chart, evaluating patient and formulating plan - 36 minutes.
--- NOTE | 2020-02-03 16:38 | PN ---
Physical Exam: SUBJECTIVE: Patient seen and examined at the bedside, intubated and sedated. OBJECTIVE: Vital Signs Period Temp Pulse Resp BP Sys/Villegas Pulse Ox Last 24 Hr 97.8 F-98.9 F 57-100 14-24 111-153/58-72 97-100 GENERAL: Intubated, sedated, mild intermittent myoclonic jerks in feet, hands B/L LUNGS: Breath sounds markedly diminished on the L HEART: RRR, no murmurs ABDOMEN: Soft, nontender, nondistended, PEG tube in RUQ EXTREMITIES: 2+ pulses, warm, well-perfused, no edema. NEUROLOGICAL: Sedated, mild intermittent myoclonic jerks in feet, hands B/L observed. PSYCH: Normal mood, normal affect. SKIN: Grade II ulcer on L buttock, no erythema, no DC Laboratory Results - last 24 hr 02/03/20 02/03/20 06:00 06:00 WBC 12.2 H RBC 3.80 L Hgb 11.4 L Hct 35.3 L MCV 93.0 MCH 30.1 MCHC 32.4 RDW 15.1 Plt Count 429 MPV 8.0 Sodium 141 Potassium 4.1 Chloride 104 Carbon Dioxide 36 H Anion Gap 2 L BUN 17.2 Creatinine 0.5 L Est GFR (CKD-EPI)AfAm 130.88 Est GFR (CKD-EPI)NonAf 112.92 Random Glucose 177 H Calcium 8.1 L Phosphorus 2.0 L Magnesium 2.1 Total Bilirubin 0.3 AST 10 L ALT 8 L Alkaline Phosphatase 61 Total Protein 5.4 L Albumin 1.8 L Active Medications Generic Name Dose Route Start Last Admin Trade Name Freq PRN Reason Stop Dose Admin Acetaminophen 650 mg 01/27/20 17:27 01/31/20 03:14 Tylenol Oral Solution - GT 650 mg Q4H PRN Administration FEVER Acetylcysteine 200 mg 01/29/20 16:12 02/03/20 11:45 Mucomyst 20 Oral / Inh Use Only* NEB 200 mg RQ4H AMRITA Administration Albuterol Sulfate 1 amp 01/31/20 03:03 02/03/20 11:45 Ventolin 0.5% - NEB 1 amp Q4H PRN Administration SHORT OF BREATH/WHEEZING Amino Acids 30 ml 02/03/20 08:00 02/03/20 08:13 Prosource No Carb Liquid Pkt PO 30 ml BIDWM AMRITA Administration Carbidopa/Levodopa 1 each 01/29/20 16:00 02/02/20 21:31 Sinemet 25/250 - PO 1 each 1600,1900,2200 AMRITA Administration Carbidopa/Levodopa 1 each 01/30/20 07:00 02/03/20 14:59 Sinemet 25/250 - PO 1 each 0700,1000,1300 AMRITA Administration Chlorhexidine Gluconate 1 applic 01/25/20 22:00 02/02/20 21:21 Hibiclens For Decolonization - TP 1 applic HS AMRITA Administration Clonazepam 0.5 mg 02/02/20 21:15 02/03/20 09:11 Klonopin - GT 0.5 mg Q12H PRN Administration MUSCLE SPASMS Enoxaparin Sodium 40 mg 01/25/20 10:00 02/03/20 09:10 Lovenox - SQ 40 mg DAILY AMRITA Administration Propofol 1,000,000 mcg in 100 mls @ 2.449 mls/hr 01/24/20 22:45 02/02/20 21:11 Diprivan - IVPB 20 mcg/kg/min TITR AMRITA 9.798 mls/hr Titration Protocol 5 MCG/KG/MIN Fentanyl 500 mcg in 100 mls @ 16.329 mls/hr 01/25/20 05:00 02/02/20 21:28 Sublimaze Ivpb IVPB 1.22 mcg/kg/hr TITR AMRITA 20 mls/hr Titration Protocol 1 MCG/KG/HR Piperacillin Sod/Tazobactam 100 mls @ 200 mls/hr 01/25/20 10:27 02/03/20 15:02 Sod 4.5 gm/ Dextrose IVPB 200 mls/hr Q6H-IV AMRITA Administration Protocol Sodium Chloride 1,000 mls @ 75 mls/hr 01/27/20 17:27 02/02/20 17:45 Normal Saline - IV 75 mls/hr ASDIR AMRITA Administration Midazolam HCl 100 mg in 100 mls @ 1 mls/hr 01/31/20 08:15 02/03/20 09:15 Midazolam 100mg/100ml-0.9%Nacl IVPB 10 mg/hr TITR AMRITA 10 mls/hr Administration Protocol 1 MG/HR Norepinephrine Bitartrate 8,000 mcg in 500 mls @ 18.75 mls/hr 02/01/20 15:30 02/02/20 22:14 Levophed Bag IVPB Not Given TITR AMRITA Protocol 5 MCG/MIN Methylprednisolone Sodium Succinate 40 mg 01/31/20 13:00 02/03/20 09:11 Solu-Medrol - IVPUSH 40 mg Q8H-IV AMRITA Administration Pantoprazole Sodium 40 mg 02/02/20 12:45 02/03/20 09:15 Protonix Iv IVPUSH 40 mg DAILY AMRITA Administration Sodium Chloride 2 spray 01/30/20 06:54 [place] Nasal [place] - NS TID PRN NASAL CONGESTION Tetrahydrozoline HCl 1 drop 01/27/20 18:51 01/29/20 17:22 Visine - OU 1 drop QID PRN Administration DRY EYES ASSESSMENT/PLAN: 64 YO M PMH HTN, BPH, Parkinson's disease with Supranuclear palsy (with PEG tube in RUQ). Found to have PNA. Admitted to ICU for Acute hypoxic, hypercapnic re spiratory failure 2/2 PNA. #Neuro - Re-intubated 01/30, sedation restarted - Parkinson's, on Sinemet - CT head (02/01): Mild chronic microvascular ischemic changes, possible 1.4cm focal infarct in posterior fossa - CT Head (02/02): Previously identified focal attenuation in cerebellum not definitely identified - Neuro on board: Stanley Lui, Klonipin 0.5mg BID started - Pt with repeat episodes of myoclonic seizures today, given Ativan 4mg x2, Fosphenytoin 1000mg IVPB #Pulm - S/p chest tube for pleural effusion/infiltrate - reintubated 01/30, CXR Left hemithorax compatible w/atelectasis >> CXR shows some improvement - PEEP 10, FiO2 80 - continue mucomyst nebs and ventolin - solumedrol 40 mg q8h #Cardio - Cardiology consulted (Dr. Jauregui) He has a right bundle branch block. Possibly lateral ST elevations. There is no need for further cardiac work-up nor testing in this setting. - On pressors #ID - Sputum cx: pseudomonas aeruginosa & staph aureus. - ID consulted (Dr. eSrrato) Zosyn day 8 #Renal - monitor BUN/Cr Palliative Dr. Arroyo consulted family needs some time They are also awaiting a neurological follow up to ascertain his neurological status. Family wants full code to continue for now. We discussed DNR , withdrawal of care but family want full code for now and will make further decision after discussion with Dr Smart #FEN - N/S @ 75 - Prosource #Prophylaxis - Lovenox #Dispo - Monitor in ICU Visit type - Emergency Visit Emergency Visit: No - New Patient This patient is new to me today: No - Critical Care Critical Care patient: Yes Total Critical Care Time (in minutes): 35 Critical Care Statement: The care of this patient involved high complexity decision making to prevent further life threatening deterioration of the patient's condition and/or to evaluate & treat vital organ system(s) failure or risk of failure. - Medication Review Med list reviewed for High Risk Meds patients 65 and older: Yes ATTENDING PHYSICIAN STATEMENT I saw and evaluated the patient. I reviewed the resident's note and discussed the case with the resident. I agree with the resident's findings and plan as documented. SUBJECTIVE: OBJECTIVE: ASSESSMENT AND PLAN:
[2020-02-03] MEDS ORDERED: PT OWN MED DRAWER 7, Y5N ONE ×2 (17:54→21:26)
[2020-02-03] MEDS: SODIUM CHLORIDE 1,000 ML IV SCH ×2 (17:58→21:34)
[2020-02-03] MEDS: NOREPINEPHRINE BITARTRATE 8,000 MCG/500 ML BAG IVPB SCH ×2 (21:25→21:27)
[2020-02-03] MEDS: FENTANYL IVPB 500 MCG/100 ML BAG IVPB SCH (21:26)
[2020-02-03] MEDS: CHLORHEXIDINE GLUCONATE 4% CLEANSER FOR DECOLONIZATION TP SCH (21:30)
[2020-02-04] MEDS: ACETYLCYSTEINE 20% 200MG/ML 4 ML VIAL *FOR ORAL / INH USE ONLY NEB SCH ×6 (00:35→20:35)
[2020-02-04] MEDS: ALBUTEROL SO4 0.5 % INH SOLN 2.5 MG/0.5 ML VIAL.NEB. NEB PRN ×5 (00:35→20:35)
[2020-02-04] MEDS: methylPREDNISolone NA SUCC 40 MG/1 ML VIAL IVPUSH SCH ×3 (01:17→17:45)
[2020-02-04] MEDS ORDERED: PIPERACILLIN/TAZOBACTAM 4.5 GM VIAL IVPB ONE ×4 (02:54→20:14)
[2020-02-04] MEDS ORDERED: DEXTROSE 5%-WATER 100 ML IVPB ONE ×4 (02:54→20:14)
[2020-02-04] MEDS: FENTANYL IVPB 500 MCG/100 ML BAG IVPB SCH ×6 (03:05→18:34)
[2020-02-04] MEDS: PIPERACILLIN/TAZOB 4.5 GM 4.5 GM in DEXTROSE 5%-WATER 100 ML IVPB SCH ×4 (03:05→20:17)
[2020-02-04] MEDS: CARBIDOPA/LEVODOPA 25/250 TABLET (FP) PO SCH ×6 (06:29→23:15)
[2020-02-04 07:18] LABS: HEMATOCRIT 36.1 % (35.4-49); HEMOGLOBIN 11.6 GM/dL (11.7-16.9); LYMPH % 7.3 % (8-40); MCHC 32.1 g/dl (32.0-35.9); MEAN CELL VOLUME 93.5 fl (80-96); MEAN PLT VOLUME 8.2 fl (7.5-11.1); MONO % 4.1 % (3.8-10.2); NEUT % 88.6 % (42.8-82.8); PLATELET COUNT 361 K/MM3 (134-434); RBC 3.86 M/mm3 (4.00-5.60); RDW 14.7 % (11.9-15.9)
[2020-02-04 07:42] LABS: ALBUMIN 1.8 g/dl (3.4-5.0); BILIRUBIN,TOTAL 0.2 mg/dL (0.2-1); BLOOD UREA NITROGEN 11.7 mg/dL (7-18); CALCIUM 7.5 mg/dL (8.5-10.1); CREATININE 0.4 mg/dL (0.55-1.3); PHOSPHOROUS 1.5 mg/dL (2.5-4.9); TOT PROT 5.3 g/dl (6.4-8.2)
[2020-02-04] MEDS: AMINO ACIDS/PROTEIN HYDROLYS 30 ML LIQUID.PKT PO SCH ×2 (08:52→17:45)
[2020-02-04] MEDS: ENOXAPARIN NA (PORCINE) 40 MG/0.4 ML DISP.SYRIN SQ SCH (10:27)
[2020-02-04] MEDS: PANTOPRAZOLE SODIUM 40 MG VIAL IVPUSH SCH (10:27)
[2020-02-04] MEDS: PROPOFOL 1,000,000 MCG/100 ML VIAL IVPB SCH (10:45)
--- NOTE | 2020-02-04 10:55 | PN ---
Progress Note, Physician Chief Complaint: Acute Hypoxic and Hypercapneic Respiratory Failure Pneumonia suspect Aspiration Sepsis Lactic Acidosis Parkinsons Supranuclear Palsy History of Present Illness: 4 year old non-verbal male with PMH of Parkinson's disease with Supranuclear palsy with PEG tube placed. Last admission at [facility] was in November for Aspiration PNA. Pt unable to communicate and family not present at bedside. As per ER staff, pt was with AMS earlier today, pt is non verbal at baseline but is able to communicate minimally using hand gestures. EMS was called and pt was found to be hypoxic in the 80s on home oxygen of 2L, which improved to 90s after Ambu bagging. In the ER, he was sedated and intubated, septic workup initiated, and admitted to the ICU. In the ER pt again began to desat, CXR showed massive left sided effusion/infiltrate and chest tube was palced with improvement in SpO2. Pt extubated on 01/28/20, re-intubated s/p Cardiac arrest on 01/31/20 Seen by palliative medicine - Current Medication List Current Medications: Active Medications Acetaminophen (Tylenol Oral Solution -) 650 mg GT Q4H PRN PRN Reason: FEVER Last Admin: 01/31/20 03:14 Dose: 650 mg Documented by: Acetylcysteine (Mucomyst 20 Oral / Inh Use Only*) 200 mg NEB RQ4H AMRITA Last Admin: 02/04/20 08:40 Dose: 200 mg Documented by: Albuterol Sulfate (Ventolin 0.5% -) 1 amp NEB Q4H PRN PRN Reason: SHORT OF BREATH/WHEEZING Last Admin: 02/04/20 04:30 Dose: 1 amp Documented by: Amino Acids (Prosource No Carb Liquid Pkt) 30 ml PO BIDWM AMRITA Last Admin: 02/04/20 08:52 Dose: 30 ml Documented by: Carbidopa/Levodopa (Sinemet 25/250 -) 1 each PO 1600,1900,2200 AMRITA Last Admin: 02/03/20 21:30 Dose: 1 each Documented by: Carbidopa/Levodopa (Sinemet 25/250 -) 1 each PO 0700,1000,1300 AMRITA Last Admin: 02/04/20 10:29 Dose: 1 each Documented by: Chlorhexidine Gluconate (Hibiclens For Decolonization -) 1 applic TP HS [facility] Last Admin: 02/03/20 21:30 Dose: 1 applic Documented by: Clonazepam (Klonopin -) 0.5 mg GT Q12H PRN PRN Reason: MUSCLE SPASMS Last Admin: 02/03/20 09:11 Dose: 0.5 mg Documented by: Enoxaparin Sodium (Lovenox -) 40 mg SQ DAILY AMRITA Last Admin: 02/04/20 10:27 Dose: 40 mg Documented by: Propofol (Diprivan -) 1,000,000 mcg in 100 mls @ 2.449 mls/hr IVPB TITR AMRITA; Protocol Last Admin: 02/04/20 10:45 Dose: 20 mcg/kg/min, 9.798 mls/hr Documented by: Fentanyl (Sublimaze Ivpb) 500 mcg in 100 mls @ 16.329 mls/hr IVPB TITR AMRITA; Protocol Last Admin: 02/04/20 08:52 Dose: 1.22 mcg/kg/hr, 20 mls/hr Documented by: Piperacillin Sod/Tazobactam (Sod 4.5 gm/ Dextrose) 100 mls @ 200 mls/hr IVPB Q6H-IV AMRITA; Protocol Last Admin: 02/04/20 08:53 Dose: 200 mls/hr Documented by: Sodium Chloride (Normal Saline -) 1,000 mls @ 75 mls/hr IV ASDIR AMRITA Last Admin: 02/03/20 21:34 Dose: 75 mls/hr Documented by: Midazolam HCl (Midazolam 100mg/100ml-0.9%Nacl) 100 mg in 100 mls @ 1 mls/hr IVPB TITR AMRITA; Protocol Last Infusion: 02/03/20 20:05 Dose: 10 mg/hr, 10 mls/hr Documented by: Norepinephrine Bitartrate (Levophed Bag) 8,000 mcg in 500 mls @ 18.75 mls/hr IVPB TITR AMRITA; Protocol Last Titration: 02/04/20 07:09 Dose: 1 mcg/min, 3.75 mls/hr Documented by: Methylprednisolone Sodium Succinate (Solu-Medrol -) 40 mg IVPUSH Q8H-IV AMRITA Last Admin: 02/04/20 10:27 Dose: 40 mg Documented by: Pantoprazole Sodium (Protonix Iv) 40 mg IVPUSH DAILY AMRITA Last Admin: 02/04/20 10:27 Dose: 40 mg Documented by: Sodium Chloride ([place] Nasal [place] -) 2 spray NS TID PRN PRN Reason: NASAL CONGESTION Tetrahydrozoline HCl (Visine -) 1 drop OU QID PRN PRN Reason: DRY EYES Last Admin: 01/29/20 17:22 Dose: 1 drop Documented by: - Objective Vital Signs: Vital Signs Temperature 98 F 02/04/20 06:00 Pulse Rate 68 02/04/20 08:00 Respiratory Rate 15 02/04/20 08:40 Blood Pressure 121/77 02/04/20 08:00 O2 Sat by Pulse Oximetry (%) 100 02/04/20 08:40 Constitutional: Yes: Well Nourished, No Distress, Calm Cardiovascular: Yes: Regular Rate and Rhythm Respiratory: Yes: Regular, CTA Bilaterally Gastrointestinal: Yes: Normal Bowel Sounds, Soft Genitourinary: Yes: Merchant Present Musculoskeletal: Yes: Muscle Weakness Edema: No Peripheral Pulses WNL: Yes Neurological: Yes: Other (SEDATED) Labs: CBC, BMP 02/04/20 06:00 02/04/20 06:00 INR, PTT INR 1.10 (0.83-1.09) H 01/25/20 05:35 Problem List - Problems (1) Pneumonia Assessment/Plan: -ID consult -IV Zosyn -IV medrol -Serial CXR's -Pulmonary on board -Bronchodilators -Mech vent -COVID 19 PCR negative -Cultures: Microbiology 01/27/20 07:00 Sputum - Endotrachea Suction/Ventilator Gram Stain - Final 01/25/20 14:00 Sputum - Endotrachea Suction/Ventilator Gram Stain - Final 01/25/20 14:00 Sputum - Endotrachea Suction/Ventilator Sputum Culture - Final Pseudomonas Aeruginosa Staphylococcus Aureus 01/24/20 23:05 Blood - Peripheral Venous Blood Culture - Preliminary NO GROWTH OBTAINED AFTER 48 HOURS, INCUBATION TO CONTINUE FOR 3 DAYS. 01/24/20 23:05 Blood - Peripheral Venous Blood Culture - Preliminary NO GROWTH OBTAINED AFTER 48 HOURS, INCUBATION TO CONTINUE FOR 3 DAYS. 01/24/20 23:15 Urine - Urine - Catheterized Urine Culture - Final NO GROWTH OBTAINED Problems reviewed: Yes Code(s): J18.9 - PNEUMONIA, UNSPECIFIED ORGANISM Qualifiers: Pneumonia type: due to unspecified organism Laterality: bilateral Lung location: unspecified part of lung Qualified Code(s): J18.9 - Pneumonia, unspecified organism (2) Respiratory failure Assessment/Plan: as above -CXR worse-progress opacification of left hemithorax -Left chest tube Problems reviewed: Yes Code(s): J96.90 - RESPIRATORY FAILURE, UNSP, UNSP W HYPOXIA OR HYPERCAPNIA Qualifiers: Chronicity: acute Respiratory failure complication: hypoxia Qualified Code(s): J96.01 - Acute respiratory failure with hypoxia (3) Functional quadriplegia Problems reviewed: Yes Code(s): R53.2 - FUNCTIONAL QUADRIPLEGIA (4) Parkinson disease Problems reviewed: Yes Code(s): G20 - PARKINSON'S DISEASE (5) Supranuclear palsy Assessment/Plan: -Seen by neurology Problems reviewed: Yes Code(s): G23.1 - PROGRESSIVE SUPRANUCLEAR OPHTHALMOPLEGIA (6) Cardiac arrest Assessment/Plan: -re-intubated Problems reviewed: Yes Code(s): I46.9 - CARDIAC ARREST, CAUSE UNSPECIFIED Assessment/Plan See problem list poor prognosis Palliative care consult
--- NOTE | 2020-02-04 13:10 | PN ---
Teaching Attending Note Name of Resident: Ba Longo ATTENDING PHYSICIAN STATEMENT I saw and evaluated the patient. I reviewed the resident's note and discussed the case with the resident. I agree with the resident's findings and plan as documented. SUBJECTIVE: Patient seen and examined in the ICU. Remains intubated and sedated. Recurrent seizure activity. NE for hemodynamic support. Intake & Output 02/01/20 02/02/20 02/03/20 02/04/20 23:59 23:59 23:59 23:59 Intake Total 4933.0 4666.4 4500 2506 Output Total 700 1450 2600 1000 Balance 4233.0 3216.4 1900 1506 Weight 146 lb 3 oz 152 lb 4 oz 156 lb 3 oz 156 lb 12.8 oz Last Vital Signs Temp Pulse Resp BP Pulse Ox 97.9 F 77 14 106/63 100 02/04/20 10:00 02/04/20 12:00 02/04/20 12:47 02/04/20 12:00 02/04/20 12:47 Active Medications Acetaminophen (Tylenol Oral Solution -) 650 mg GT Q4H PRN PRN Reason: FEVER Last Admin: 01/31/20 03:14 Dose: 650 mg Documented by: Acetylcysteine (Mucomyst 20 Oral / Inh Use Only*) 200 mg NEB RQ4H AMRITA Last Admin: 02/04/20 08:40 Dose: 200 mg Documented by: Albuterol Sulfate (Ventolin 0.5% -) 1 amp NEB Q4H PRN PRN Reason: SHORT OF BREATH/WHEEZING Last Admin: 02/04/20 04:30 Dose: 1 amp Documented by: Amino Acids (Prosource No Carb Liquid Pkt) 30 ml PO BIDWM AMRITA Last Admin: 02/04/20 08:52 Dose: 30 ml Documented by: Carbidopa/Levodopa (Sinemet 25/250 -) 1 each PO 1600,1900,2200 AMRITA Last Admin: 02/03/20 21:30 Dose: 1 each Documented by: Carbidopa/Levodopa (Sinemet 25/250 -) 1 each PO 0700,1000,1300 AMRITA Last Admin: 02/04/20 10:29 Dose: 1 each Documented by: Chlorhexidine Gluconate (Hibiclens For Decolonization -) 1 applic TP HS AMRITA Last Admin: 02/03/20 21:30 Dose: 1 applic Documented by: Clonazepam (Klonopin -) 0.5 mg GT Q12H PRN PRN Reason: MUSCLE SPASMS Last Admin: 02/03/20 09:11 Dose: 0.5 mg Documented by: Enoxaparin Sodium (Lovenox -) 40 mg SQ DAILY AMRITA Last Admin: 02/04/20 10:27 Dose: 40 mg Documented by: Propofol (Diprivan -) 1,000,000 mcg in 100 mls @ 2.449 mls/hr IVPB TITR AMRITA; Protocol Last Admin: 02/04/20 10:45 Dose: 20 mcg/kg/min, 9.798 mls/hr Documented by: Fentanyl (Sublimaze Ivpb) 500 mcg in 100 mls @ 16.329 mls/hr IVPB TITR AMRITA; Protocol Last Admin: 02/04/20 08:52 Dose: 1.22 mcg/kg/hr, 20 mls/hr Documented by: Piperacillin Sod/Tazobactam (Sod 4.5 gm/ Dextrose) 100 mls @ 200 mls/hr IVPB Q6H-IV AMRITA; Protocol Last Admin: 02/04/20 08:53 Dose: 200 mls/hr Documented by: Sodium Chloride (Normal Saline -) 1,000 mls @ 75 mls/hr IV ASDIR AMRITA Last Admin: 02/03/20 21:34 Dose: 75 mls/hr Documented by: Midazolam HCl (Midazolam 100mg/100ml-0.9%Nacl) 100 mg in 100 mls @ 1 mls/hr IVPB TITR AMRITA; Protocol Last Infusion: 02/03/20 20:05 Dose: 10 mg/hr, 10 mls/hr Documented by: Norepinephrine Bitartrate (Levophed Bag) 8,000 mcg in 500 mls @ 18.75 mls/hr IVPB TITR AMRITA; Protocol Last Titration: 02/04/20 07:09 Dose: 1 mcg/min, 3.75 mls/hr Documented by: Methylprednisolone Sodium Succinate (Solu-Medrol -) 40 mg IVPUSH Q8H-IV AMRITA Last Admin: 02/04/20 10:27 Dose: 40 mg Documented by: Pantoprazole Sodium (Protonix Iv) 40 mg IVPUSH DAILY AMRITA Last Admin: 02/04/20 10:27 Dose: 40 mg Documented by: Sodium Chloride ([place] Nasal [place] -) 2 spray NS TID PRN PRN Reason: NASAL CONGESTION Tetrahydrozoline HCl (Visine -) 1 drop OU QID PRN PRN Reason: DRY EYES Last Admin: 01/29/20 17:22 Dose: 1 drop Documented by: GEN: Intubated and sedated PULM: Vented, decreased BS Left, scattered rhonchi CV: S1, S2, RR ABD: + BS, S/S N/T N/D X4Q EXT: + Pulses, WWP X4, (-) edema 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 Laboratory Results - last 24 hr 02/03/20 02/04/20 02/04/20 06:00 06:00 06:00 WBC 7.0 RBC 3.86 L Hgb 11.6 L Hct 36.1 MCV 93.5 MCH 30.0 MCHC 32.1 RDW 14.7 Plt Count 361 MPV 8.2 Absolute Neuts (auto) 6.2 Neutrophils % 88.6 H Lymphocytes % 7.3 L Monocytes % 4.1 D Eosinophils % 0.0 Basophils % 0.0 Nucleated RBC % 0 Sodium 140 Potassium 4.0 Chloride 99 Carbon Dioxide 39 H Anion Gap 2 L BUN 11.7 Creatinine 0.4 L Est GFR (CKD-EPI)AfAm 143.45 Est GFR (CKD-EPI)NonAf 123.77 Random Glucose 176 H Calcium 7.5 L Phosphorus 1.5 L Magnesium 2.0 Total Bilirubin 0.2 AST 10 L ALT 7 L Alkaline Phosphatase 58 Total Protein 5.3 L Albumin 1.8 L Prolactin 7.3 ASSESS: S/P CP arrest Left mucous plugging Acute Hypoxic and Hypercapneic Respiratory Failure Pneumonia suspect Aspiration Sepsis Lactic Acidosis Parkinsons Supranuclear Palsy PLAN: - AC Mode of vent - Mucomyst / Steroids - Aggressive CPT - Bronchodilators - Zosyn per ID - monitor urine output, creatinine - Aspiration precautions - DVT/GI prophylaxis - Requires ICU monitoring Will need further family discussions for C Dr Scott Critical care time spent in reviewing chart, evaluating patient and formulating plan - 36 minutes.
--- NOTE | 2020-02-04 14:19 | PN ---
Physical Exam: SUBJECTIVE: Patient seen and examined at the bedside, intubated and sedated. OBJECTIVE: Vital Signs Period Temp Pulse Resp BP Sys/Villegas Pulse Ox Last 24 Hr 97.3 F-98.9 F 60-81 13-24 94-147/50-78 100-100 GENERAL: Intubated, sedated, mild intermittent myoclonic jerks in feet, hands B/L LUNGS: Breath sounds markedly diminished on the L HEART: RRR, no murmurs ABDOMEN: Soft, nontender, nondistended, PEG tube in RUQ EXTREMITIES: 2+ pulses, warm, well-perfused, no edema. NEUROLOGICAL: Sedated, mild intermittent myoclonic jerks in feet, hands B/L observed. PSYCH: Normal mood, normal affect. SKIN: Grade II ulcer on L buttock, no erythema, no DC Laboratory Results - last 24 hr 02/03/20 02/04/20 02/04/20 06:00 06:00 06:00 WBC 7.0 RBC 3.86 L Hgb 11.6 L Hct 36.1 MCV 93.5 MCH 30.0 MCHC 32.1 RDW 14.7 Plt Count 361 MPV 8.2 Absolute Neuts (auto) 6.2 Neutrophils % 88.6 H Lymphocytes % 7.3 L Monocytes % 4.1 D Eosinophils % 0.0 Basophils % 0.0 Nucleated RBC % 0 Sodium 140 Potassium 4.0 Chloride 99 Carbon Dioxide 39 H Anion Gap 2 L BUN 11.7 Creatinine 0.4 L Est GFR (CKD-EPI)AfAm 143.45 Est GFR (CKD-EPI)NonAf 123.77 Random Glucose 176 H Calcium 7.5 L Phosphorus 1.5 L Magnesium 2.0 Total Bilirubin 0.2 AST 10 L ALT 7 L Alkaline Phosphatase 58 Total Protein 5.3 L Albumin 1.8 L Prolactin 7.3 Active Medications Generic Name Dose Route Start Last Admin Trade Name Freq PRN Reason Stop Dose Admin Acetaminophen 650 mg 01/27/20 17:27 01/31/20 03:14 Tylenol Oral Solution - GT 650 mg Q4H PRN Administration FEVER Acetylcysteine 200 mg 01/29/20 16:12 02/04/20 08:40 Mucomyst 20 Oral / Inh Use Only* NEB 200 mg RQ4H [facility] Administration Albuterol Sulfate 1 amp 01/31/20 03:03 02/04/20 04:30 Ventolin 0.5% - NEB 1 amp Q4H PRN Administration SHORT OF BREATH/WHEEZING Amino Acids 30 ml 02/03/20 08:00 02/04/20 08:52 Prosource No Carb Liquid Pkt PO 30 ml BIDWM [facility] Administration Carbidopa/Levodopa 1 each 01/29/20 16:00 02/03/20 21:30 Sinemet 25/250 - PO 1 each 1600,1900,2200 [facility] Administration Carbidopa/Levodopa 1 each 01/30/20 07:00 02/04/20 13:24 Sinemet 25/250 - PO 1 each 0700,1000,1300 [facility] Administration Chlorhexidine Gluconate 1 applic 01/25/20 22:00 02/03/20 21:30 Hibiclens For Decolonization - TP 1 applic HS [facility] Administration Clonazepam 0.5 mg 02/02/20 21:15 02/03/20 09:11 Klonopin - GT 0.5 mg Q12H PRN Administration MUSCLE SPASMS Enoxaparin Sodium 40 mg 01/25/20 10:00 02/04/20 10:27 Lovenox - SQ 40 mg DAILY [facility] Administration Propofol 1,000,000 mcg in 100 mls @ 2.449 mls/hr 01/24/20 22:45 02/04/20 10:45 Diprivan - IVPB 20 mcg/kg/min TITR [facility] 9.798 mls/hr Administration Protocol 5 MCG/KG/MIN Fentanyl 500 mcg in 100 mls @ 16.329 mls/hr 01/25/20 05:00 02/04/20 13:21 Sublimaze Ivpb IVPB 1.22 mcg/kg/hr TITR [facility] 20 mls/hr Administration Protocol 1 MCG/KG/HR Piperacillin Sod/Tazobactam 100 mls @ 200 mls/hr 01/25/20 10:27 02/04/20 08:53 Sod 4.5 gm/ Dextrose IVPB 200 mls/hr Q6H-IV [facility] Administration Protocol Sodium Chloride 1,000 mls @ 75 mls/hr 01/27/20 17:27 02/03/20 21:34 Normal Saline - IV 75 mls/hr ASDIR [facility] Administration Midazolam HCl 100 mg in 100 mls @ 1 mls/hr 01/31/20 08:15 02/03/20 20:05 Midazolam 100mg/100ml-0.9%Nacl IVPB 10 mg/hr TITR [facility] 10 mls/hr Infusion Protocol 1 MG/HR Norepinephrine Bitartrate 8,000 mcg in 500 mls @ 18.75 mls/hr 02/01/20 15:30 02/04/20 10:45 Levophed Bag IVPB 0 mcg/min TITR [facility] 0 mls/hr Titration Protocol 5 MCG/MIN Methylprednisolone Sodium Succinate 40 mg 01/31/20 13:00 02/04/20 10:27 Solu-Medrol - IVPUSH 40 mg Q8H-IV [facility] Administration Pantoprazole Sodium 40 mg 02/02/20 12:45 02/04/20 10:27 Protonix Iv IVPUSH 40 mg DAILY [facility] Administration Sodium Chloride 2 spray 01/30/20 06:54 [place] Nasal [place] - NS TID PRN NASAL CONGESTION Tetrahydrozoline HCl 1 drop 01/27/20 18:51 01/29/20 17:22 Visine - OU 1 drop QID PRN Administration DRY EYES ASSESSMENT/PLAN: 64 YO M PMH HTN, BPH, Parkinson's disease with Supranuclear palsy (with PEG tube in RUQ). Found to have PNA. Admitted to ICU for Acute hypoxic, hypercapnic respiratory failure 2/2 PNA. #Neuro - Re-intubated 01/30, sedation restarted - Parkinson's, on Sinemet - CT head (02/01): Mild chronic microvascular ischemic changes, possible 1.4cm focal infarct in posterior fossa - CT Head (02/02): Previously identified focal attenuation in cerebellum not definitely identified - Neuro on board: Stanley Lui, Klonipin 0.5mg BID started #Pulm - S/p chest tube for pleural effusion/infiltrate - CXR: Improvement aeration of L hemithorax - PEEP 10, FiO2 70 - Mucomyst, Ventolinentolin - Solumedrol 40 Q8H (01/30) #Cardio - Cardiology consulted (Dr. Jauregui): RBBB, possibly lateral ST elevations, no need for further cardiac work-up nor testing in this setting. - On Norepinephrine @ 1 #GI - PEG tube in place - Family wants J tube to reduce incidence of aspiration, will consult surgery/IR on Thursday #ID - Sputum cx: pseudomonas aeruginosa & staph aureus. - Zosyn (01/23) - ID on board #Renal - Cr 0.4 #FEN - N/S @ 75 - Prosource #Prophylaxis - Protonix - Lovenox #Dispo - Family wants full code for now - Monitor in ICU Visit type - Emergency Visit Emergency Visit: Yes ED Registration Date: 01/24/20 Care time: The patient presented to the Emergency Department on the above date and was hospitalized for further evaluation of their emergent condition. - New Patient This patient is new to me today: No - Critical Care Critical Care patient: Yes Total Critical Care Time (in minutes): 37 Critical Care Statement: The care of this patient involved high complexity decision making to prevent further life threatening deterioration of the patient's condition and/or to evaluate & treat vital organ system(s) failure or risk of failure. - Medication Review Med list reviewed for High Risk Meds patients 65 and older: Yes ATTENDING PHYSICIAN STATEMENT I saw and evaluated the patient. I reviewed the resident's note and discussed the case with the resident. I agree with the resident's findings and plan as documented. SUBJECTIVE: OBJECTIVE: ASSESSMENT AND PLAN:
[2020-02-04] MEDS: SODIUM CHLORIDE 1,000 ML IV SCH (14:28)
--- NOTE | 2020-02-04 16:58 | PN ---
Progress Note, Physician History of Present Illness: Pt is intubated/sedated, remains afebrile. - Current Medication List Current Medications: Active Medications Acetaminophen (Tylenol Oral Solution -) 650 mg GT Q4H PRN PRN Reason: FEVER Last Admin: 01/31/20 03:14 Dose: 650 mg Documented by: Acetylcysteine (Mucomyst 20 Oral / Inh Use Only*) 200 mg NEB RQ4H [facility] Last Admin: 02/04/20 12:10 Dose: 200 mg Documented by: Albuterol Sulfate (Ventolin 0.5% -) 1 amp NEB Q4H PRN PRN Reason: SHORT OF BREATH/WHEEZING Last Admin: 02/04/20 12:10 Dose: 1 amp Documented by: Amino Acids (Prosource No Carb Liquid Pkt) 30 ml PO BIDWM [facility] Last Admin: 02/04/20 08:52 Dose: 30 ml Documented by: Carbidopa/Levodopa (Sinemet 25/250 -) 1 each PO 1600,1900,2200 [facility] Last Admin: 02/03/20 21:30 Dose: 1 each Documented by: Carbidopa/Levodopa (Sinemet 25/250 -) 1 each PO 0700,1000,1300 [facility] Last Admin: 02/04/20 13:24 Dose: 1 each Documented by: Chlorhexidine Gluconate (Hibiclens For Decolonization -) 1 applic TP HS [facility] Last Admin: 02/03/20 21:30 Dose: 1 applic Documented by: Clonazepam (Klonopin -) 0.5 mg GT Q12H PRN PRN Reason: MUSCLE SPASMS Last Admin: 02/03/20 09:11 Dose: 0.5 mg Documented by: Enoxaparin Sodium (Lovenox -) 40 mg SQ DAILY [facility] Last Admin: 02/04/20 10:27 Dose: 40 mg Documented by: Propofol (Diprivan -) 1,000,000 mcg in 100 mls @ 2.449 mls/hr IVPB TITR [facility]; Protocol Last Admin: 02/04/20 10:45 Dose: 20 mcg/kg/min, 9.798 mls/hr Documented by: Fentanyl (Sublimaze Ivpb) 500 mcg in 100 mls @ 16.329 mls/hr IVPB TITR [facility]; Protocol Last Admin: 02/04/20 13:21 Dose: 1.22 mcg/kg/hr, 20 mls/hr Documented by: Piperacillin Sod/Tazobactam (Sod 4.5 gm/ Dextrose) 100 mls @ 200 mls/hr IVPB Q6H-IV [facility]; Protocol Last Admin: 02/04/20 08:53 Dose: 200 mls/hr Documented by: Sodium Chloride (Normal Saline -) 1,000 mls @ 75 mls/hr IV ASDIR [facility] Last Admin: 02/04/20 14:28 Dose: 75 mls/hr Documented by: Midazolam HCl (Midazolam 100mg/100ml-0.9%Nacl) 100 mg in 100 mls @ 1 mls/hr IVPB TITR [facility]; Protocol Last Infusion: 02/03/20 20:05 Dose: 10 mg/hr, 10 mls/hr Documented by: Norepinephrine Bitartrate (Levophed Bag) 8,000 mcg in 500 mls @ 18.75 mls/hr IVPB TITR [facility]; Protocol Last Titration: 02/04/20 10:45 Dose: 0 mcg/min, 0 mls/hr Documented by: Methylprednisolone Sodium Succinate (Solu-Medrol -) 40 mg IVPUSH Q8H-IV [facility] Last Admin: 02/04/20 10:27 Dose: 40 mg Documented by: Pantoprazole Sodium (Protonix Iv) 40 mg IVPUSH DAILY [facility] Last Admin: 02/04/20 10:27 Dose: 40 mg Documented by: Sodium Chloride ([place] Nasal [place] -) 2 spray NS TID PRN PRN Reason: NASAL CONGESTION Tetrahydrozoline HCl (Visine -) 1 drop OU QID PRN PRN Reason: DRY EYES Last Admin: 01/29/20 17:22 Dose: 1 drop Documented by: - Objective Vital Signs: Vital Signs Temperature 97.9 F 02/04/20 14:00 Pulse Rate 81 02/04/20 14:00 Respiratory Rate 14 02/04/20 14:00 Blood Pressure 113/65 02/04/20 14:00 O2 Sat by Pulse Oximetry (%) 100 02/04/20 14:00 Constitutional: Yes: No Distress Cardiovascular: Yes: Regular Rate and Rhythm Respiratory: Yes: Rhonchi Gastrointestinal: Yes: Normal Bowel Sounds, Soft Genitourinary: Yes: Merchant Present Extremities: Yes: WNL Neurological: Yes: Other (sedated) Labs: CBC, BMP 02/04/20 06:00 02/04/20 06:00 INR, PTT INR 1.10 (0.83-1.09) H 01/25/20 05:35 Laboratory Last Values WBC 7.0 K/mm3 (4.0-10.0) 02/04/20 06:00 RBC 3.86 M/mm3 (4.00-5.60) L 02/04/20 06:00 Hgb 11.6 GM/dL (11.7-16.9) L 02/04/20 06:00 Hct 36.1 % (35.4-49) 02/04/20 06:00 MCV 93.5 fl (80-96) 02/04/20 06:00 MCH 30.0 pg (25.7-33.7) 02/04/20 06:00 MCHC 32.1 g/dl (32.0-35.9) 02/04/20 06:00 RDW 14.7 % (11.9-15.9) 02/04/20 06:00 Plt Count 361 K/MM3 (134-434) 02/04/20 06:00 MPV 8.2 fl (7.5-11.1) 02/04/20 06:00 Absolute Neuts (auto) 6.2 K/mm3 (1.5-8.0) 02/04/20 06:00 Neutrophils % 88.6 % (42.8-82.8) H 02/04/20 06:00 Neutrophils % (Manual) 84.0 % (42.8-82.8) H D 01/31/20 05:40 Band Neutrophils % 7.0 % 01/31/20 05:40 Lymphocytes % 7.3 % (8-40) L 02/04/20 06:00 Lymphocytes % (Manual) 7.0 % (8-40) L D 01/31/20 05:40 Monocytes % 4.1 % (3.8-10.2) D 02/04/20 06:00 Monocytes % (Manual) 2 % (3.8-10.2) L 01/31/20 05:40 Eosinophils % 0.0 % (0-4.5) 02/04/20 06:00 Eosinophils % (Manual) 0.0 % (0-4.5) 01/31/20 05:40 Basophils % 0.0 % (0-2.0) 02/04/20 06:00 Basophils % (Manual) 0.0 % (0-2.0) 01/31/20 05:40 Myelocytes % (Man) 0 % (0-2) 01/31/20 05:40 Promyelocytes % (Man) 0 % (0-2) 01/31/20 05:40 Blast Cells % (Manual) 0 % (0-0) 01/31/20 05:40 Nucleated RBC % 0 % (0-0) 02/04/20 06:00 Metamyelocytes 0 % (0-2) D 01/31/20 05:40 Hypochromia 0 01/31/20 05:40 Platelet Estimate Normal 01/31/20 05:40 Polychromasia 0 01/31/20 05:40 Poikilocytosis 0 01/31/20 05:40 Anisocytosis 0 01/31/20 05:40 Microcytosis 0 01/31/20 05:40 Macrocytosis 0 01/31/20 05:40 PT with INR 13.00 SEC (9.7-13.0) 01/25/20 05:35 INR 1.10 (0.83-1.09) H 01/25/20 05:35 PTT (Actin FS) 33.1 SECONDS (25.2-36.5) 01/24/20 23:05 Anticoagulation Therapy No Result Required. 01/31/20 16:26 Puncture Site Right radial 01/31/20 16:26 Patient Temperature No Result Required. 01/31/20 16:26 ABG pH 7.330 (7.350-7.450) L 01/31/20 16:26 ABG pCO2 59.00 mmHg (35-45) H 01/31/20 16:26 ABG pO2 88.5 mmHg (80-100) 01/31/20 16:26 ABG HCO3 30.4 mmol/L (22-27) H 01/31/20 16:26 ABG O2 Sat (Measured) 96.0 mmHg (95-98) 01/31/20 16:26 ABG O2 Content No Result Required. 01/31/20 16:26 ABG Base Excess 2.7 mmol/L (-2-2) H 01/31/20 16:26 [place] Test Positive 01/31/20 16:26 Patient On Oxygen Yes 01/31/20 16:26 O2 Delivery Device Mech vent 01/31/20 16:26 Oxygen Flow Rate 100% 01/31/20 16:26 Vent Mode Ac 01/31/20 16:26 Vent Rate 14 01/31/20 16:26 Mechanical Rate No Result Required. 01/31/20 16:26 PEEP 10.0 cmH2O 01/31/20 16:26 Pressure Support Vent 400 01/31/20 16:26 Sodium 140 mmol/L (136-145) 02/04/20 06:00 Potassium 4.0 mmol/L (3.5-5.1) 02/04/20 06:00 Chloride 99 mmol/L (98-107) 02/04/20 06:00 Carbon Dioxide 39 mmol/L (21-32) H 02/04/20 06:00 Anion Gap 2 MMOL/L (8-16) L 02/04/20 06:00 BUN 11.7 mg/dL (7-18) 02/04/20 06:00 Creatinine 0.4 mg/dL (0.55-1.3) L 02/04/20 06:00 Est GFR (CKD-EPI)AfAm 143.45 02/04/20 06:00 Est GFR (CKD-EPI)NonAf 123.77 02/04/20 06:00 POC Glucometer 129 UNITS (80-120) 02/01/20 00:17 Random Glucose 176 mg/dL (74-106) H 02/04/20 06:00 Lactic Acid 1.2 mmol/L (0.4-2.0) 01/27/20 06:17 Calcium 7.5 mg/dL (8.5-10.1) L 02/04/20 06:00 Phosphorus 1.5 mg/dL (2.5-4.9) L 02/04/20 06:00 Magnesium 2.0 mg/dL (1.8-2.4) 02/04/20 06:00 Total Bilirubin 0.2 mg/dL (0.2-1) 02/04/20 06:00 AST 10 U/L (15-37) L 02/04/20 06:00 ALT 7 U/L (13-61) L 02/04/20 06:00 Alkaline Phosphatase 58 U/L (45-117) 02/04/20 06:00 Creatine Kinase 38 U/L (26-308) 01/25/20 19:00 Troponin I < 0.02 ng/ml (0.00-0.05) 01/25/20 19:00 Total Protein 5.3 g/dl (6.4-8.2) L 02/04/20 06:00 Albumin 1.8 g/dl (3.4-5.0) L 02/04/20 06:00 Prolactin 7.3 ng/ml (4.0-15.2) 02/03/20 06:00 Urine Color Yellow 01/24/20 23:15 Urine Appearance Clear 01/24/20 23:15 Urine pH 5.5 (5.0-8.0) D 01/24/20 23:15 Ur Specific [place] 1.029 (1.010-1.035) 01/24/20 23:15 Urine Protein 1+ (NEGATIVE) H 01/24/20 23:15 Urine Glucose (UA) Negative (NEGATIVE) 01/24/20 23:15 Urine Ketones Trace (NEGATIVE) H 01/24/20 23:15 Urine Blood Negative (NEGATIVE) 01/24/20 23:15 Urine Nitrite Negative (NEGATIVE) 01/24/20 23:15 Urine Bilirubin Negative (NEGATIVE) 01/24/20 23:15 Urine Urobilinogen 0.2 mg/dL (0.2-1.0) 01/24/20 23:15 Ur Leukocyte Esterase Negative (NEGATIVE) 01/24/20 23:15 Urine WBC (Auto) 3 /uL (0-25.8) 01/24/20 23:15 Urine RBC (Auto) 35 /uL (0-23.9) 01/24/20 23:15 Urine Casts (Auto) 2 /uL (0-3.1) 01/24/20 23:15 U Epithel Cells (Auto) 12 /uL (0-25.1) 01/24/20 23:15 Urine Bacteria (Auto) 3 /uL (0-1359) 01/24/20 23:15 Random Vancomycin 7.8 ug/ml (5-26) 01/28/20 06:00 COVID-19 (CAT) Not detected (Not Detected) 01/24/20 23:15 Microbiology 01/27/20 07:00 Sputum - Endotrachea Suction/Ventilator Gram Stain - Final 01/27/20 07:00 Sputum - Endotrachea Suction/Ventilator Sputum Culture - Final Pseudomonas Aeruginosa Staphylococcus Aureus 01/24/20 23:05 Blood - Peripheral Venous Blood Culture - Final NO GROWTH AFTER 5 DAYS INCUBATION 01/24/20 23:05 Blood - Peripheral Venous Blood Culture - Final NO GROWTH AFTER 5 DAYS INCUBATION 01/25/20 14:00 Sputum - Endotrachea Suction/Ventilator Gram Stain - Final 01/25/20 14:00 Sputum - Endotrachea Suction/Ventilator Sputum Culture - Final Pseudomonas Aeruginosa Staphylococcus Aureus 01/24/20 23:15 Urine - Urine - Catheterized Urine Culture - Final NO GROWTH OBTAINED - ....Imaging Chest X-ray: Report Reviewed Problem List - Problems (1) Cardiac arrest Code(s): I46.9 - CARDIAC ARREST, CAUSE UNSPECIFIED (2) Pneumonia Code(s): J18.9 - PNEUMONIA, UNSPECIFIED ORGANISM Qualifiers: Pneumonia type: due to unspecified organism Laterality: bilateral Lung location: unspecified part of lung Qualified Code(s): J18.9 - Pneumonia, unspecified organism (3) Respiratory failure Code(s): J96.90 - RESPIRATORY FAILURE, UNSP, UNSP W HYPOXIA OR HYPERCAPNIA Qualifiers: Chronicity: acute Respiratory failure complication: hypoxia Qualified Code(s): J96.01 - Acute respiratory failure with hypoxia (4) BPH (benign prostatic hyperplasia) Code(s): N40.0 - BENIGN PROSTATIC HYPERPLASIA WITHOUT LOWER URINRY TRACT SYMP (5) Hypertension Code(s): I10 - ESSENTIAL (PRIMARY) HYPERTENSION (6) Hyperthyroidism Code(s): E05.90 - THYROTOXICOSIS, UNSP WITHOUT THYROTOXIC CRISIS OR STORM (7) Parkinson disease Code(s): G20 - PARKINSON'S DISEASE (8) Pericardial effusion Code(s): I31.3 - PERICARDIAL EFFUSION (NONINFLAMMATORY) (9) Sepsis Code(s): A41.9 - SEPSIS, UNSPECIFIED ORGANISM Qualifiers: Acute respiratory failure type: with hypoxia Severe sepsis shock status: without septic shock (10) Supranuclear palsy Code(s): G23.1 - PROGRESSIVE SUPRANUCLEAR OPHTHALMOPLEGIA Assessment/Plan Acute respiratory failure/intubated s/p Cardiac arrest Shock Sepsis PNA, ? aspiration Seizure Parkinsons Supranuclear palsy -- wbc trended down, afebrile, remains on vasopressors -- continue antibiotics -- culture results noted -- continue monitor vitals/labs cc time: 37 min
[2020-02-04] MEDS ORDERED: NAPH,MB-DB/K PH,MBDB POWDER PACKET PO ONE (17:33)
[2020-02-04] MEDS: MIDAZOLAM IN 0.9 % SOD.CHLORID 100 MG/100 ML PLAST..BAG IVPB SCH (18:01)
[2020-02-04] MEDS: CHLORHEXIDINE GLUCONATE 4% CLEANSER FOR DECOLONIZATION TP SCH (23:15)
[2020-02-05] MEDS ORDERED: PIPERACILLIN/TAZOBACTAM 4.5 GM VIAL IVPB ONE ×6 (00:24→20:52)
[2020-02-05] MEDS ORDERED: DEXTROSE 5%-WATER 100 ML IVPB ONE ×4 (00:24→20:51)
[2020-02-05] MEDS: ALBUTEROL SO4 0.5 % INH SOLN 2.5 MG/0.5 ML VIAL.NEB. NEB PRN (00:30)
[2020-02-05] MEDS: ACETYLCYSTEINE 20% 200MG/ML 4 ML VIAL *FOR ORAL / INH USE ONLY NEB SCH ×6 (00:30→20:18)
[2020-02-05] MEDS: PIPERACILLIN/TAZOB 4.5 GM 4.5 GM in DEXTROSE 5%-WATER 100 ML IVPB SCH ×4 (02:10→20:55)
[2020-02-05] MEDS: methylPREDNISolone NA SUCC 40 MG/1 ML VIAL IVPUSH SCH ×3 (02:14→17:49)
[2020-02-05] MEDS: SODIUM CHLORIDE 1,000 ML IV SCH (04:06)
[2020-02-05] MEDS: MIDAZOLAM IN 0.9 % SOD.CHLORID 100 MG/100 ML PLAST..BAG IVPB SCH ×3 (04:44→18:20)
[2020-02-05] MEDS: NOREPINEPHRINE BITARTRATE 8,000 MCG/500 ML BAG IVPB SCH ×2 (04:44→17:50)
[2020-02-05] MEDS ORDERED: LORazepam 2 MG/ML SDV VIAL ONE (04:47)
[2020-02-05] MEDS ORDERED: LORazepam 2 MG/ML SDV VIAL IM ONE (04:50)
[2020-02-05] MEDS: clonazePAM 0.5 MG TABLET GT PRN (04:51)
[2020-02-05] MEDS ORDERED: LORazepam 2 MG/ML SDV VIAL IVPUSH ONE (05:11)
[2020-02-05] MEDS: CARBIDOPA/LEVODOPA 25/250 TABLET (FP) PO SCH ×6 (06:27→21:00)
[2020-02-05] MEDS ORDERED: levETIRAcetam 500 MG/5 ML INJECTION VIAL IVPB ONE (06:38)
[2020-02-05] MEDS ORDERED: PT OWN MED DRAWER 7, Y5N ONE (06:46)
[2020-02-05 07:06] LABS: BASO % 0.1 % (0-2.0); EOS % 0.1 % (0-4.5); HEMATOCRIT 34.1 % (35.4-49); HEMOGLOBIN 11.2 GM/dL (11.7-16.9); LYMPH % 5.7 % (8-40); MCH 30.4 pg (25.7-33.7); MCHC 32.9 g/dl (32.0-35.9); MEAN CELL VOLUME 92.3 fl (80-96); MONO % 4.1 % (3.8-10.2); PLATELET COUNT 288 K/MM3 (134-434); RDW 14.4 % (11.9-15.9); WHITE BLOOD COUNT 6.5 K/mm3 (4.0-10.0)
[2020-02-05 07:41] LABS: ALBUMIN 1.6 g/dl (3.4-5.0); ANION GAP 0 MMOL/L (8-16); BLOOD UREA NITROGEN 12.5 mg/dL (7-18); CALCIUM 7.7 mg/dL (8.5-10.1); CHLORIDE 95 mmol/L (98-107); CO2 43 mmol/L (21-32); CREATININE 0.3 mg/dL (0.55-1.3); GLUCOSE,RANDOM 111 mg/dL (74-106); MAGNESIUM 2.3 mg/dL (1.8-2.4); PHOSPHOROUS 1.7 mg/dL (2.5-4.9); SGOT/AST 8 U/L (15-37); SODIUM 138 mmol/L (136-145)
[2020-02-05 07:43] LABS: ALK PHOS 59 U/L (45-117); BILIRUBIN,TOTAL 0.4 mg/dL (0.2-1); TOT PROT 4.9 g/dl (6.4-8.2)
[2020-02-05 08:06] LABS: SGPT/ALT < 6 U/L (13-61)
[2020-02-05] MEDS ORDERED: NAPH,MB-DB/K PH,MBDB POWDER PACKET PO ONE (08:21)
[2020-02-05] MEDS: AMINO ACIDS/PROTEIN HYDROLYS 30 ML LIQUID.PKT PO SCH ×2 (08:55→17:49)
[2020-02-05 09:25] LABS: PLATELET ESTIMATE NORMAL
[2020-02-05] MEDS: ENOXAPARIN NA (PORCINE) 40 MG/0.4 ML DISP.SYRIN SQ SCH (09:39)
[2020-02-05] MEDS: PANTOPRAZOLE SODIUM 40 MG VIAL IVPUSH SCH (09:39)
--- NOTE | 2020-02-05 11:07 | PN ---
Progress Note, Physician Chief Complaint: Acute Hypoxic and Hypercapneic Respiratory Failure Pneumonia suspect Aspiration Sepsis Lactic Acidosis Parkinsons Supranuclear Palsy History of Present Illness: 4 year old non-verbal male with PMH of Parkinson's disease with Supranuclear palsy with PEG tube placed. Last admission at [facility] was in November for Aspiration PNA. Pt unable to communicate and family not present at bedside. As per ER staff, pt was with AMS earlier today, pt is non verbal at baseline but is able to communicate minimally using hand gestures. EMS was called and pt was found to be hypoxic in the 80s on home oxygen of 2L, which improved to 90s after Ambu bagging. In the ER, he was sedated and intubated, septic workup initiated, and admitted to the ICU. In the ER pt again began to desat, CXR showed massive left sided effusion/infiltrate and chest tube was palced with improvement in SpO2. Pt extubated on 01/28/20, re-intubated s/p Cardiac arrest on 01/31/20 Seen by palliative medicine Off pressors - Current Medication List Current Medications: Active Medications Acetaminophen (Tylenol Oral Solution -) 650 mg GT Q4H PRN PRN Reason: FEVER Last Admin: 01/31/20 03:14 Dose: 650 mg Documented by: Acetylcysteine (Mucomyst 20 Oral / Inh Use Only*) 200 mg NEB RQ4H [facility] Last Admin: 02/05/20 07:53 Dose: Not Given Documented by: Amino Acids (Prosource No Carb Liquid Pkt) 30 ml PO BIDWM [facility] Last Admin: 02/05/20 08:55 Dose: 30 ml Documented by: Carbidopa/Levodopa (Sinemet 25/250 -) 1 each PO 1600,1900,2200 [facility] Last Admin: 02/04/20 23:15 Dose: 1 each Documented by: Carbidopa/Levodopa (Sinemet 25/250 -) 1 each PO 0700,1000,1300 [facility] Last Admin: 02/05/20 10:59 Dose: 1 each Documented by: Chlorhexidine Gluconate (Hibiclens For Decolonization -) 1 applic TP HS [facility] Last Admin: 02/04/20 23:15 Dose: 1 applic Documented by: Clonazepam (Klonopin -) 0.5 mg GT Q12H PRN PRN Reason: MUSCLE SPASMS Last Admin: 02/05/20 04:51 Dose: 0.5 mg Documented by: Enoxaparin Sodium (Lovenox -) 40 mg SQ DAILY [facility] Last Admin: 02/05/20 09:39 Dose: 40 mg Documented by: Propofol (Diprivan -) 1,000,000 mcg in 100 mls @ 2.449 mls/hr IVPB TITR [facility]; Protocol Last Titration: 02/05/20 02:50 Dose: 20 mcg/kg/min, 9.798 mls/hr Documented by: Fentanyl (Sublimaze Ivpb) 500 mcg in 100 mls @ 16.329 mls/hr IVPB TITR [facility]; Protocol Last Titration: 02/05/20 02:49 Dose: 1.22 mcg/kg/hr, 20 mls/hr Documented by: Piperacillin Sod/Tazobactam (Sod 4.5 gm/ Dextrose) 100 mls @ 200 mls/hr IVPB Q6H-IV [facility]; Protocol Last Admin: 02/05/20 09:38 Dose: 200 mls/hr Documented by: Sodium Chloride (Normal Saline -) 1,000 mls @ 75 mls/hr IV ASDIR [facility] Last Admin: 02/05/20 04:06 Dose: 75 mls/hr Documented by: Midazolam HCl (Midazolam 100mg/100ml-0.9%Nacl) 100 mg in 100 mls @ 1 mls/hr IVPB TITR [facility]; Protocol Last Admin: 02/05/20 04:44 Dose: Not Given Documented by: Norepinephrine Bitartrate (Levophed Bag) 8,000 mcg in 500 mls @ 18.75 mls/hr IVPB TITR [facility]; Protocol Last Admin: 02/05/20 04:44 Dose: Not Given Documented by: Methylprednisolone Sodium Succinate (Solu-Medrol -) 40 mg IVPUSH Q8H-IV [facility] Last Admin: 02/05/20 09:38 Dose: 40 mg Documented by: Pantoprazole Sodium (Protonix Iv) 40 mg IVPUSH DAILY [facility] Last Admin: 02/05/20 09:39 Dose: 40 mg Documented by: Sodium Chloride ([place] Nasal [place] -) 2 spray NS TID PRN PRN Reason: NASAL CONGESTION Tetrahydrozoline HCl (Visine -) 1 drop OU QID PRN PRN Reason: DRY EYES Last Admin: 01/29/20 17:22 Dose: 1 drop Documented by: - Objective Vital Signs: Vital Signs Temperature 98 F 02/05/20 10:00 Pulse Rate 74 02/05/20 10:00 Respiratory Rate 17 02/05/20 10:00 Blood Pressure 112/62 02/05/20 10:00 O2 Sat by Pulse Oximetry (%) 97 02/05/20 10:00 Constitutional: Yes: Well Nourished, No Distress, Calm Cardiovascular: Yes: Regular Rate and Rhythm Respiratory: Yes: Regular, CTA Bilaterally, Mechanically Ventilated Gastrointestinal: Yes: Normal Bowel Sounds, Soft Genitourinary: Yes: Merchant Present Musculoskeletal: Yes: WNL Extremities: Yes: WNL Edema: No Peripheral Pulses WNL: Yes Neurological: Yes: Other (sedated) Labs: CBC, BMP 02/05/20 05:40 02/05/20 05:40 INR, PTT INR 1.10 (0.83-1.09) H 01/25/20 05:35 Problem List - Problems (1) Pneumonia Assessment/Plan: -recurrent -ID consult -IV Zosyn -IV medrol -Serial CXR's -Pulmonary on board -Bronchodilators -Mech vent -COVID 19 PCR negative -Cultures: Microbiology 01/27/20 07:00 Sputum - Endotrachea Suction/Ventilator Gram Stain - Final 01/25/20 14:00 Sputum - Endotrachea Suction/Ventilator Gram Stain - Final 01/25/20 14:00 Sputum - Endotrachea Suction/Ventilator Sputum Culture - Final Pseudomonas Aeruginosa Staphylococcus Aureus 01/24/20 23:05 Blood - Peripheral Venous Blood Culture - Preliminary NO GROWTH OBTAINED AFTER 48 HOURS, INCUBATION TO CONTINUE FOR 3 DAYS. 01/24/20 23:05 Blood - Peripheral Venous Blood Culture - Preliminary NO GROWTH OBTAINED AFTER 48 HOURS, INCUBATION TO CONTINUE FOR 3 DAYS. 01/24/20 23:15 Urine - Urine - Catheterized Urine Culture - Final NO GROWTH OBTAINED Problems reviewed: Yes Code(s): J18.9 - PNEUMONIA, UNSPECIFIED ORGANISM Qualifiers: Pneumonia type: due to unspecified organism Laterality: bilateral Lung location: unspecified part of lung Qualified Code(s): J18.9 - Pneumonia, unspecified organism (2) Respiratory failure Assessment/Plan: as above -CXR worse-progress opacification of left hemithorax Problems reviewed: Yes Code(s): J96.90 - RESPIRATORY FAILURE, UNSP, UNSP W HYPOXIA OR HYPERCAPNIA Qualifiers: Chronicity: acute Respiratory failure complication: hypoxia Qualified Code(s): J96.01 - Acute respiratory failure with hypoxia (3) Functional quadriplegia Problems reviewed: Yes Code(s): R53.2 - FUNCTIONAL QUADRIPLEGIA (4) Parkinson disease Problems reviewed: Yes Code(s): G20 - PARKINSON'S DISEASE (5) Supranuclear palsy Assessment/Plan: -Seen by neurology Problems reviewed: Yes Code(s): G23.1 - PROGRESSIVE SUPRANUCLEAR OPHTHALMOPLEGIA (6) Cardiac arrest Assessment/Plan: -re-intubated Problems reviewed: Yes Code(s): I46.9 - CARDIAC ARREST, CAUSE UNSPECIFIED Assessment/Plan See problem list poor prognosis Palliative care consult
[2020-02-05] MEDS: PROPOFOL 1,000,000 MCG/100 ML VIAL IVPB SCH ×2 (11:19→18:04)
[2020-02-05] MEDS: FENTANYL IVPB 500 MCG/100 ML BAG IVPB SCH ×2 (11:19→15:37)
--- NOTE | 2020-02-05 12:55 | PN ---
Progress Note (short form) - Note Progress Note: Patient seen and examined in the ICU. Remains intubated and sedated. No seizure activity noted but still with myoclonus. Off NE for hemodynamic support. Intake & Output 02/02/20 02/03/20 02/04/20 02/05/20 23:59 23:59 23:59 23:59 Intake Total 4666.4 4500 4801 1831 Output Total 1450 2600 1700 1300 Balance 3216.4 1900 3101 531 Weight 152 lb 4 oz 156 lb 3 oz 156 lb 12.8 oz 165 lb Last Vital Signs Temp Pulse Resp BP Pulse Ox 98 F 89 15 120/66 99 02/05/20 10:00 02/05/20 12:00 02/05/20 12:00 02/05/20 12:00 02/05/20 12:00 Active Medications Acetaminophen (Tylenol Oral Solution -) 650 mg GT Q4H PRN PRN Reason: FEVER Last Admin: 01/31/20 03:14 Dose: 650 mg Documented by: Acetylcysteine (Mucomyst 20 Oral / Inh Use Only*) 200 mg NEB RQ4H [facility] Last Admin: 02/05/20 07:53 Dose: Not Given Documented by: Amino Acids (Prosource No Carb Liquid Pkt) 30 ml PO BIDWM [facility] Last Admin: 02/05/20 08:55 Dose: 30 ml Documented by: Carbidopa/Levodopa (Sinemet 25/250 -) 1 each PO 1600,1900,2200 [facility] Last Admin: 02/04/20 23:15 Dose: 1 each Documented by: Carbidopa/Levodopa (Sinemet 25/250 -) 1 each PO 0700,1000,1300 [facility] Last Admin: 02/05/20 10:59 Dose: 1 each Documented by: Chlorhexidine Gluconate (Hibiclens For Decolonization -) 1 applic TP HS [facility] Last Admin: 02/04/20 23:15 Dose: 1 applic Documented by: Clonazepam (Klonopin -) 0.5 mg GT Q12H PRN PRN Reason: MUSCLE SPASMS Last Admin: 02/05/20 04:51 Dose: 0.5 mg Documented by: Enoxaparin Sodium (Lovenox -) 40 mg SQ DAILY [facility] Last Admin: 02/05/20 09:39 Dose: 40 mg Documented by: Propofol (Diprivan -) 1,000,000 mcg in 100 mls @ 2.449 mls/hr IVPB TITR [facility]; Protocol Last Admin: 02/05/20 11:19 Dose: 20 mcg/kg/min, 9.798 mls/hr Documented by: Fentanyl (Sublimaze Ivpb) 500 mcg in 100 mls @ 16.329 mls/hr IVPB TITR [facility]; Protocol Last Admin: 02/05/20 11:19 Dose: 1.22 mcg/kg/hr, 20 mls/hr Documented by: Piperacillin Sod/Tazobactam (Sod 4.5 gm/ Dextrose) 100 mls @ 200 mls/hr IVPB Q6H-IV [facility]; Protocol Last Admin: 02/05/20 09:38 Dose: 200 mls/hr Documented by: Sodium Chloride (Normal Saline -) 1,000 mls @ 75 mls/hr IV ASDIR [facility] Last Admin: 02/05/20 04:06 Dose: 75 mls/hr Documented by: Midazolam HCl (Midazolam 100mg/100ml-0.9%Nacl) 100 mg in 100 mls @ 1 mls/hr IVPB TITR [facility]; Protocol Last Admin: 02/05/20 11:19 Dose: 10 mg/hr, 10 mls/hr Documented by: Norepinephrine Bitartrate (Levophed Bag) 8,000 mcg in 500 mls @ 18.75 mls/hr IVPB TITR [facility]; Protocol Last Admin: 02/05/20 04:44 Dose: Not Given Documented by: Methylprednisolone Sodium Succinate (Solu-Medrol -) 40 mg IVPUSH Q8H-IV [facility] Last Admin: 02/05/20 09:38 Dose: 40 mg Documented by: Pantoprazole Sodium (Protonix Iv) 40 mg IVPUSH DAILY [facility] Last Admin: 02/05/20 09:39 Dose: 40 mg Documented by: Sodium Chloride ([place] Nasal [place] -) 2 spray NS TID PRN PRN Reason: NASAL CONGESTION Tetrahydrozoline HCl (Visine -) 1 drop OU QID PRN PRN Reason: DRY EYES Last Admin: 01/29/20 17:22 Dose: 1 drop Documented by: GEN: Intubated and sedated PULM: Vented, decreased BS Left, scattered rhonchi CV: S1, S2, RR ABD: + BS, S/S N/T N/D X4Q EXT: + Pulses, WWP X4, (-) edema TAX PROFESSIONAL: Sedated Laboratory Results - last 24 hr 02/05/20 02/05/20 05:40 05:40 WBC 6.5 RBC 3.70 L Hgb 11.2 L Hct 34.1 L MCV 92.3 MCH 30.4 MCHC 32.9 RDW 14.4 Plt Count 288 D MPV 8.0 Absolute Neuts (auto) 5.9 Neutrophils % 90.0 H Lymphocytes % 5.7 L D Monocytes % 4.1 Eosinophils % 0.1 D Basophils % 0.1 D Nucleated RBC % 0 Platelet Estimate Normal Sodium 138 Potassium 4.0 Chloride 95 L Carbon Dioxide 43 H Anion Gap 0 L BUN 12.5 Creatinine 0.3 L Est GFR (CKD-EPI)AfAm 161.45 Est GFR (CKD-EPI)NonAf 139.30 Random Glucose 111 H Calcium 7.7 L Phosphorus 1.7 L Magnesium 2.3 Total Bilirubin 0.4 AST 8 L ALT < 6 L Alkaline Phosphatase 59 Total Protein 4.9 L Albumin 1.6 L ASSESS: S/P CP arrest Left mucous plugging Acute Hypoxic and Hypercapneic Respiratory Failure Pneumonia suspect Aspiration Sepsis Lactic Acidosis Parkinsons Supranuclear Palsy PLAN: - AC Mode of vent - Mucomyst / Steroids - Aggressive CPT - Bronchodilators - Zosyn per ID - monitor urine output, creatinine - Aspiration precautions - DVT/GI prophylaxis - Requires ICU monitoring Long discussion with son who is a vascular surgeon in . They family wants to continue all efforts. Would like a J Tube evaluation and a trial of extubation. If required they would entertain a Tracheostomy. Dr Scott Critical care time spent in reviewing chart, evaluating patient and formulating plan - 36 minutes.
--- NOTE | 2020-02-05 16:40 | PN ---
Progress Note, Physician History of Present Illness: Pt remains intubated/sedated. Afebrile. - Current Medication List Current Medications: Active Medications Acetaminophen (Tylenol Oral Solution -) 650 mg GT Q4H PRN PRN Reason: FEVER Last Admin: 01/31/20 03:14 Dose: 650 mg Documented by: Acetylcysteine (Mucomyst 20 Oral / Inh Use Only*) 200 mg NEB RQ4H [facility] Last Admin: 02/05/20 16:34 Dose: Not Given Documented by: Amino Acids (Prosource No Carb Liquid Pkt) 30 ml PO BIDWM [facility] Last Admin: 02/05/20 08:55 Dose: 30 ml Documented by: Carbidopa/Levodopa (Sinemet 25/250 -) 1 each PO 1600,1900,2200 [facility] Last Admin: 02/04/20 23:15 Dose: 1 each Documented by: Carbidopa/Levodopa (Sinemet 25/250 -) 1 each PO 0700,1000,1300 [facility] Last Admin: 02/05/20 14:42 Dose: 1 each Documented by: Chlorhexidine Gluconate (Hibiclens For Decolonization -) 1 applic TP HS [facility] Last Admin: 02/04/20 23:15 Dose: 1 applic Documented by: Clonazepam (Klonopin -) 0.5 mg GT Q12H PRN PRN Reason: MUSCLE SPASMS Last Admin: 02/05/20 04:51 Dose: 0.5 mg Documented by: Enoxaparin Sodium (Lovenox -) 40 mg SQ DAILY [facility] Last Admin: 02/05/20 09:39 Dose: 40 mg Documented by: Propofol (Diprivan -) 1,000,000 mcg in 100 mls @ 2.449 mls/hr IVPB TITR [facility]; Protocol Last Admin: 02/05/20 11:19 Dose: 20 mcg/kg/min, 9.798 mls/hr Documented by: Fentanyl (Sublimaze Ivpb) 500 mcg in 100 mls @ 16.329 mls/hr IVPB TITR [facility]; Protocol Last Admin: 02/05/20 15:37 Dose: 1.22 mcg/kg/hr, 20 mls/hr Documented by: Piperacillin Sod/Tazobactam (Sod 4.5 gm/ Dextrose) 100 mls @ 200 mls/hr IVPB Q6H-IV [facility]; Protocol Last Admin: 02/05/20 15:31 Dose: 200 mls/hr Documented by: Sodium Chloride (Normal Saline -) 1,000 mls @ 75 mls/hr IV ASDIR [facility] Last Admin: 02/05/20 04:06 Dose: 75 mls/hr Documented by: Midazolam HCl (Midazolam 100mg/100ml-0.9%Nacl) 100 mg in 100 mls @ 1 mls/hr IVPB TITR [facility]; Protocol Last Admin: 02/05/20 11:19 Dose: 10 mg/hr, 10 mls/hr Documented by: Norepinephrine Bitartrate (Levophed Bag) 8,000 mcg in 500 mls @ 18.75 mls/hr IVPB TITR [facility]; Protocol Last Admin: 02/05/20 04:44 Dose: Not Given Documented by: Methylprednisolone Sodium Succinate (Solu-Medrol -) 40 mg IVPUSH Q8H-IV [facility] Last Admin: 02/05/20 09:38 Dose: 40 mg Documented by: Pantoprazole Sodium (Protonix Iv) 40 mg IVPUSH DAILY [facility] Last Admin: 02/05/20 09:39 Dose: 40 mg Documented by: Sodium Chloride ([place] Nasal [place] -) 2 spray NS TID PRN PRN Reason: NASAL CONGESTION Tetrahydrozoline HCl (Visine -) 1 drop OU QID PRN PRN Reason: DRY EYES Last Admin: 01/29/20 17:22 Dose: 1 drop Documented by: - Objective Vital Signs: Vital Signs Temperature 97.5 F L 02/05/20 14:00 Pulse Rate 78 02/05/20 14:00 Respiratory Rate 18 02/05/20 14:00 Blood Pressure 119/67 02/05/20 14:00 O2 Sat by Pulse Oximetry (%) 100 02/05/20 14:00 Constitutional: Yes: No Distress Cardiovascular: Yes: Regular Rate and Rhythm Respiratory: Yes: Regular, Mechanically Ventilated Gastrointestinal: Yes: Normal Bowel Sounds, Soft Genitourinary: Yes: Merchant Present Neurological: Yes: Other (sedated) Labs: CBC, BMP 02/05/20 05:40 02/05/20 05:40 INR, PTT INR 1.10 (0.83-1.09) H 01/25/20 05:35 Microbiology 01/27/20 07:00 Sputum - Endotrachea Suction/Ventilator Gram Stain - Final 01/27/20 07:00 Sputum - Endotrachea Suction/Ventilator Sputum Culture - Final Pseudomonas Aeruginosa Staphylococcus Aureus 01/24/20 23:05 Blood - Peripheral Venous Blood Culture - Final NO GROWTH AFTER 5 DAYS INCUBATION 01/24/20 23:05 Blood - Peripheral Venous Blood Culture - Final NO GROWTH AFTER 5 DAYS INCUBATION 01/25/20 14:00 Sputum - Endotrachea Suction/Ventilator Gram Stain - Final 01/25/20 14:00 Sputum - Endotrachea Suction/Ventilator Sputum Culture - Final Pseudomonas Aeruginosa Staphylococcus Aureus 01/24/20 23:15 Urine - Urine - Catheterized Urine Culture - Final NO GROWTH OBTAINED - ....Imaging Chest X-ray: Report Reviewed Problem List - Problems (1) Cardiac arrest Code(s): I46.9 - CARDIAC ARREST, CAUSE UNSPECIFIED (2) Pneumonia Code(s): J18.9 - PNEUMONIA, UNSPECIFIED ORGANISM Qualifiers: Pneumonia type: due to unspecified organism Laterality: bilateral Lung location: unspecified part of lung Qualified Code(s): J18.9 - Pneumonia, unspecified organism (3) Respiratory failure Code(s): J96.90 - RESPIRATORY FAILURE, UNSP, UNSP W HYPOXIA OR HYPERCAPNIA Qualifiers: Chronicity: acute Respiratory failure complication: hypoxia Qualified Code(s): J96.01 - Acute respiratory failure with hypoxia (4) BPH (benign prostatic hyperplasia) Code(s): N40.0 - BENIGN PROSTATIC HYPERPLASIA WITHOUT LOWER URINRY TRACT SYMP (5) Hypertension Code(s): I10 - ESSENTIAL (PRIMARY) HYPERTENSION (6) Hyperthyroidism Code(s): E05.90 - THYROTOXICOSIS, UNSP WITHOUT THYROTOXIC CRISIS OR STORM (7) Parkinson disease Code(s): G20 - PARKINSON'S DISEASE (8) Pericardial effusion Code(s): I31.3 - PERICARDIAL EFFUSION (NONINFLAMMATORY) (9) Sepsis Code(s): A41.9 - SEPSIS, UNSPECIFIED ORGANISM Qualifiers: Acute respiratory failure type: with hypoxia Severe sepsis shock status: without septic shock (10) Supranuclear palsy Code(s): G23.1 - PROGRESSIVE SUPRANUCLEAR OPHTHALMOPLEGIA Assessment/Plan Acute respiratory failure/intubated s/p Cardiac arrest Shock Sepsis PNA Mucous plugging Seizure Parkinsons Supranuclear palsy -- wbc trended down, afebrile, remains intubated/sedated -- wbc normal, afebrile -- continue antibiotics -- culture results noted -- continue monitor vitals/labs cc time: 37 min
[2020-02-05] MEDS: CHLORHEXIDINE GLUCONATE 4% CLEANSER FOR DECOLONIZATION TP SCH (21:00)
[2020-02-06] MEDS: ACETYLCYSTEINE 20% 200MG/ML 4 ML VIAL *FOR ORAL / INH USE ONLY NEB SCH ×6 (00:06→20:30)
[2020-02-06] MEDS ORDERED: DEXTROSE 5%-WATER 100 ML IVPB ONE ×4 (02:00→20:47)
[2020-02-06] MEDS ORDERED: PIPERACILLIN/TAZOBACTAM 4.5 GM VIAL IVPB ONE ×4 (02:00→20:47)
[2020-02-06] MEDS: methylPREDNISolone NA SUCC 40 MG/1 ML VIAL IVPUSH SCH ×3 (02:09→17:53)
[2020-02-06] MEDS: PIPERACILLIN/TAZOB 4.5 GM 4.5 GM in DEXTROSE 5%-WATER 100 ML IVPB SCH ×4 (02:10→21:22)
[2020-02-06] MEDS ORDERED: LORazepam 2 MG/ML SDV VIAL ONE (02:46)
[2020-02-06] MEDS ORDERED: LORazepam 2 MG/ML SDV VIAL IVPUSH ONE ×2 (02:50→02:51)
[2020-02-06] MEDS ORDERED: RAPID SEQUENCE INTUBATION KIT NR ONE (03:24)
[2020-02-06] MEDS ORDERED: VECURONIUM BROMIDE 10 MG/10 ML VIAL ONE (03:27)
[2020-02-06] MEDS: CARBIDOPA/LEVODOPA 25/250 TABLET (FP) PO SCH ×5 (06:15→21:27)
[2020-02-06 06:36] LABS: EOS % 0.8 % (0-4.5); HEMATOCRIT 35.3 % (35.4-49); HEMOGLOBIN 11.6 GM/dL (11.7-16.9); LYMPH % 5.9 % (8-40); MCH 30.3 pg (25.7-33.7); MCHC 32.8 g/dl (32.0-35.9); MEAN CELL VOLUME 92.6 fl (80-96); MEAN PLT VOLUME 7.6 fl (7.5-11.1); MONO % 4.9 % (3.8-10.2); NEUT % 88.4 % (42.8-82.8); PLATELET COUNT 316 K/MM3 (134-434); RBC 3.81 M/mm3 (4.00-5.60); RDW 14.6 % (11.9-15.9); WHITE BLOOD COUNT 6.2 K/mm3 (4.0-10.0)
[2020-02-06] MEDS: SODIUM CHLORIDE 1,000 ML IV SCH (07:00)
[2020-02-06 07:06] LABS: ALBUMIN 1.6 g/dl (3.4-5.0); ALK PHOS 67 U/L (45-117); BILIRUBIN,TOTAL 0.3 mg/dL (0.2-1); BLOOD UREA NITROGEN 12.9 mg/dL (7-18); CALCIUM 7.7 mg/dL (8.5-10.1); CHLORIDE 96 mmol/L (98-107); CREATININE 0.2 mg/dL (0.55-1.3); GLUCOSE,RANDOM 108 mg/dL (74-106); MAGNESIUM 2.3 mg/dL (1.8-2.4); PHOSPHOROUS 1.8 mg/dL (2.5-4.9); POTASSIUM 3.5 mmol/L (3.5-5.1); SGOT/AST 12 U/L (15-37); SGPT/ALT 7 U/L (13-61); SODIUM 141 mmol/L (136-145); TOT PROT 4.8 g/dl (6.4-8.2)
[2020-02-06 07:10] LABS: ANION GAP 0 MMOL/L (8-16); CO2 > 45 mmol/L (21-32)
[2020-02-06] MEDS: FENTANYL IVPB 500 MCG/100 ML BAG IVPB SCH ×2 (07:42→17:53)
[2020-02-06] MEDS: ALBUTEROL SO4 0.083% IH SOL 2.5 MG/3 ML VIAL.NEB. NEB PRN ×4 (07:45→20:30)
[2020-02-06 07:52] LABS: ARTERIAL BLD GAS O2 SATURATION 86.9 mmHg (95-98); ARTERIAL BLOOD GAS BASE EXCESS 14.4 mmol/L (-2-2); ARTERIAL BLOOD GAS PO2 56.7 mmHg (80-100); ARTERIAL BLOOD GAS pH 7.361 (7.350-7.450)
[2020-02-06 07:55] LABS: ALLENS TEST POSITIVE
[2020-02-06 07:56] LABS: VENT MODE A/C; VENT RATE 14
--- NOTE | 2020-02-06 08:07 | PN ---
Progress Note, Physician - Current Medication List Current Medications: Active Medications Acetaminophen (Tylenol Oral Solution -) 650 mg GT Q4H PRN PRN Reason: FEVER Last Admin: 01/31/20 03:14 Dose: 650 mg Documented by: Acetylcysteine (Mucomyst 20 Oral / Inh Use Only*) 200 mg NEB RQ4H [facility] Last Admin: 02/06/20 04:07 Dose: Not Given Documented by: Albuterol Sulfate (Ventolin 0.083% Nebulizer Soln -) 1 amp NEB Q6H PRN PRN Reason: SHORT OF BREATH/WHEEZING Amino Acids (Prosource No Carb Liquid Pkt) 30 ml PO BIDWM [facility] Last Admin: 02/05/20 17:49 Dose: 30 ml Documented by: Carbidopa/Levodopa (Sinemet 25/250 -) 1 each PO 1600,1900,2200 [facility] Last Admin: 02/05/20 21:00 Dose: 1 each Documented by: Carbidopa/Levodopa (Sinemet 25/250 -) 1 each PO 0700,1000,1300 [facility] Last Admin: 02/06/20 06:15 Dose: 1 each Documented by: Chlorhexidine Gluconate (Hibiclens For Decolonization -) 1 applic TP HS [facility] Last Admin: 02/05/20 21:00 Dose: 1 applic Documented by: Clonazepam (Klonopin -) 0.5 mg GT Q12H PRN PRN Reason: MUSCLE SPASMS Last Admin: 02/05/20 04:51 Dose: 0.5 mg Documented by: Enoxaparin Sodium (Lovenox -) 40 mg SQ DAILY [facility] Last Admin: 02/05/20 09:39 Dose: 40 mg Documented by: Propofol (Diprivan -) 1,000,000 mcg in 100 mls @ 2.449 mls/hr IVPB TITR [facility]; Protocol Last Titration: 02/06/20 05:57 Dose: 50 mcg/kg/min, 24.494 mls/hr Documented by: Fentanyl (Sublimaze Ivpb) 500 mcg in 100 mls @ 16.329 mls/hr IVPB TITR [facility]; Protocol Last Admin: 02/06/20 07:42 Dose: 1.22 mcg/kg/hr, 20 mls/hr Documented by: Piperacillin Sod/Tazobactam (Sod 4.5 gm/ Dextrose) 100 mls @ 200 mls/hr IVPB Q6H-IV [facility]; Protocol Last Admin: 02/06/20 02:10 Dose: 200 mls/hr Documented by: Sodium Chloride (Normal Saline -) 1,000 mls @ 75 mls/hr IV [facility] Last Admin: 02/05/20 04:06 Dose: 75 mls/hr Documented by: Midazolam HCl (Midazolam 100mg/100ml-0.9%Nacl) 100 mg in 100 mls @ 1 mls/hr IVPB TITR [facility]; Protocol Last Admin: 02/05/20 18:20 Dose: 8 mg/hr, 8 mls/hr Documented by: Methylprednisolone Sodium Succinate (Solu-Medrol -) 40 mg IVPUSH Q8H-IV [facility] Last Admin: 02/06/20 02:09 Dose: 40 mg Documented by: Pantoprazole Sodium (Protonix Iv) 40 mg IVPUSH DAILY [facility] Last Admin: 02/05/20 09:39 Dose: 40 mg Documented by: Sodium Chloride ([place] Nasal [place] -) 2 spray NS TID PRN PRN Reason: NASAL CONGESTION Tetrahydrozoline HCl (Visine -) 1 drop OU QID PRN PRN Reason: DRY EYES Last Admin: 01/29/20 17:22 Dose: 1 drop Documented by: - Objective Vital Signs: Vital Signs Temperature 96.8 F L 02/06/20 06:00 Pulse Rate 78 02/06/20 06:00 Respiratory Rate 11 02/06/20 06:00 Blood Pressure 118/73 02/06/20 06:00 O2 Sat by Pulse Oximetry (%) 92 L 02/06/20 06:00 Cardiovascular: Yes: S1, S2 Respiratory: Yes: Mechanically Ventilated Gastrointestinal: Yes: Normal Bowel Sounds, Soft Neurological: Yes: Lethargy Labs: CBC, BMP 02/06/20 05:30 02/06/20 05:30 INR, PTT INR 1.10 (0.83-1.09) H 01/25/20 05:35 Problem List - Problems (1) Respiratory failure Code(s): J96.90 - RESPIRATORY FAILURE, UNSP, UNSP W HYPOXIA OR HYPERCAPNIA Qualifiers: Chronicity: acute Respiratory failure complication: hypoxia Qualified Code(s): J96.01 - Acute respiratory failure with hypoxia (2) Pneumonia Code(s): J18.9 - PNEUMONIA, UNSPECIFIED ORGANISM Qualifiers: Pneumonia type: due to unspecified organism Laterality: bilateral Lung location: unspecified part of lung Qualified Code(s): J18.9 - Pneumonia, unspecified organism (3) Parkinson disease Code(s): G20 - PARKINSON'S DISEASE (4) Sepsis Code(s): A41.9 - SEPSIS, UNSPECIFIED ORGANISM Qualifiers: Acute respiratory failure type: with hypoxia Severe sepsis shock status: without septic shock Assessment/Plan - Problems (1) Pneumonia Assessment/Plan: -recurrent -ID consult -IV Zosyn -IV medrol -Serial CXR's -Pulmonary on board -Bronchodilators -Mech vent -COVID 19 PCR negative -Cultures: Microbiology 01/27/20 07:00 Sputum - Endotrachea Suction/Ventilator Gram Stain - Final 01/25/20 14:00 Sputum - Endotrachea Suction/Ventilator Gram Stain - Final 01/25/20 14:00 Sputum - Endotrachea Suction/Ventilator Sputum Culture - Final Pseudomonas Aeruginosa Staphylococcus Aureus 01/24/20 23:05 Blood - Peripheral Venous Blood Culture - Preliminary NO GROWTH OBTAINED AFTER 48 HOURS, INCUBATION TO CONTINUE FOR 3 DAYS. 01/24/20 23:05 Blood - Peripheral Venous Blood Culture - Preliminary NO GROWTH OBTAINED AFTER 48 HOURS, INCUBATION TO CONTINUE FOR 3 DAYS. 01/24/20 23:15 Urine - Urine - Catheterized Urine Culture - Final NO GROWTH OBTAINED Problems reviewed: Yes Code(s): J18.9 - PNEUMONIA, UNSPECIFIED ORGANISM Qualifiers: Pneumonia type: due to unspecified organism Laterality: bilateral Lung location: unspecified part of lung Qualified Code(s): J18.9 - Pneumonia, unspecified organism (2) Respiratory failure Assessment/Plan: as above -CXR worse-progress opacification of left hemithorax Problems reviewed: Yes Code(s): J96.90 - RESPIRATORY FAILURE, UNSP, UNSP W HYPOXIA OR HYPERCAPNIA Qualifiers: Chronicity: acute Respiratory failure complication: hypoxia Qualified Code(s): J96.01 - Acute respiratory failure with hypoxia (3) Functional quadriplegia Problems reviewed: Yes Code(s): R53.2 - FUNCTIONAL QUADRIPLEGIA (4) Parkinson disease Problems reviewed: Yes Code(s): G20 - PARKINSON'S DISEASE (5) Supranuclear palsy Assessment/Plan: -Seen by neurology Problems reviewed: Yes Code(s): G23.1 - PROGRESSIVE SUPRANUCLEAR OPHTHALMOPLEGIA (6) Cardiac arrest Assessment/Plan: -re-intubated Problems reviewed: Yes Code(s): I46.9 - CARDIAC ARREST, CAUSE UNSPECIFIED poor prognosis Palliative care consult
--- NOTE | 2020-02-06 08:25 | PN ---
Progress Note (short form) - Note Progress Note: Called to bedside at approx. 3am for desaturating patient. (O2 sat 92%) pt. found to be fighting the vent. sedation increased and ventilation/oxygenation improved. breath sounds bilateral. Tube advanced to 23cm at the teeth. Called to the bedside again at approx. 5am for concern of displaced tube. pt. re-evaluated at the bedside. adequate tidal volume delivery without evidence of cuff leak. recommended that the tube be kept in place and repeat abg and cxr. at approx. 8am called to the bedside stat. pt. found to be normotensive with O2 sat of 100% however tube now at 20cm at the teeth with + Leak. Using glidescope tube advanced under direct visualization. tube secured at 24cm at the teeth and resecured. recommend repeat cxr and abg in 30 min. discussed with resident at bedside.
[2020-02-06 09:25] LABS: ARTERIAL BLD GAS O2 SATURATION 95.9 mmHg (95-98); ARTERIAL BLOOD GAS BASE EXCESS 12.8 mmol/L (-2-2); ARTERIAL BLOOD GAS PO2 86.6 mmHg (80-100); ARTERIAL BLOOD GAS pH 7.366 (7.350-7.450)
[2020-02-06 09:35] LABS: VENT MODE A/C
[2020-02-06 09:36] LABS: VENT RATE 14
[2020-02-06] MEDS: AMINO ACIDS/PROTEIN HYDROLYS 30 ML LIQUID.PKT PO SCH ×2 (10:00→17:52)
[2020-02-06] MEDS: PANTOPRAZOLE SODIUM 40 MG VIAL IVPUSH SCH (10:01)
[2020-02-06] MEDS: ENOXAPARIN NA (PORCINE) 40 MG/0.4 ML DISP.SYRIN SQ SCH (10:01)
[2020-02-06] MEDS ORDERED: clonazePAM 0.5 MG TABLET GT SCH (11:00)
[2020-02-06] MEDS: PROPOFOL 1,000,000 MCG/100 ML VIAL IVPB SCH ×5 (11:10→21:20)
[2020-02-06] MEDS ORDERED: MIDAZOLAM HCL 2 MG/2 ML SINGLE DOSE VIAL IVPUSH ONE (11:19)
--- NOTE | 2020-02-06 12:20 | PN ---
Teaching Attending Note Name of Resident: Errol Franco ATTENDING PHYSICIAN STATEMENT I saw and evaluated the patient. I reviewed the resident's note and discussed the case with the resident. I agree with the resident's findings and plan as documented. SUBJECTIVE: Pt seen and examined in the ICU. Intubated, sedated. No pressors. Fio2 60%. Incr eased myoclonic activity off sedation. OBJECTIVE: Vital Signs Period Temp Pulse Resp BP Sys/Villegas Pulse Ox Last 24 Hr 96.8 F-98.2 F 65-88 10-25 115-136/67-78 91-100 Intake & Output 02/03/20 02/04/20 02/05/20 02/06/20 23:59 23:59 23:59 23:59 Intake Total 4500 4801 3866 1542.5 Output Total 2600 1700 2500 1600 Balance 1900 3101 1366 -57.5 Weight 70.845 kg 71.123 kg 74.843 kg Gen: intubated, sedated Heart: RRR Lung: scattered rhonchi Abd: soft, nontender Ext: no edema CBC, BMP 02/06/20 05:30 02/06/20 05:30 Active Medications Acetaminophen (Tylenol Oral Solution -) 650 mg GT Q4H PRN PRN Reason: FEVER Last Admin: 01/31/20 03:14 Dose: 650 mg Documented by: Acetylcysteine (Mucomyst 20 Oral / Inh Use Only*) 200 mg NEB RQ4H [facility] Last Admin: 02/06/20 11:39 Dose: 200 mg Documented by: Albuterol Sulfate (Ventolin 0.083% Nebulizer Soln -) 1 amp NEB Q6H PRN PRN Reason: SHORT OF BREATH/WHEEZING Last Admin: 02/06/20 11:40 Dose: 1 amp Documented by: Amino Acids (Prosource No Carb Liquid Pkt) 30 ml PO BIDWM [facility] Last Admin: 02/06/20 10:00 Dose: 30 ml Documented by: Carbidopa/Levodopa (Sinemet 25/250 -) 1 each PO 1600,1900,2200 [facility] Last Admin: 02/05/20 21:00 Dose: 1 each Documented by: Carbidopa/Levodopa (Sinemet 25/250 -) 1 each PO 0700,1000,1300 [facility] Last Admin: 09/14/20 10:01 Dose: 1 each Documented by: Chlorhexidine Gluconate (Hibiclens For Decolonization -) 1 applic TP HS [facility] Last Admin: 02/05/20 21:00 Dose: 1 applic Documented by: Clonazepam (Klonopin -) 0.5 mg GT BID [facility] Last Admin: 02/06/20 11:45 Dose: 0.5 mg Documented by: Enoxaparin Sodium (Lovenox -) 40 mg SQ DAILY [facility] Last Admin: 02/06/20 10:01 Dose: 40 mg Documented by: Propofol (Diprivan -) 1,000,000 mcg in 100 mls @ 2.449 mls/hr IVPB TITR [facility]; Protocol Last Admin: 02/06/20 11:10 Dose: 50 mcg/kg/min, 24.494 mls/hr Documented by: Fentanyl (Sublimaze Ivpb) 500 mcg in 100 mls @ 16.329 mls/hr IVPB TITR [facility]; Protocol Last Admin: 02/06/20 07:42 Dose: 1.22 mcg/kg/hr, 20 mls/hr Documented by: Piperacillin Sod/Tazobactam (Sod 4.5 gm/ Dextrose) 100 mls @ 200 mls/hr IVPB Q6H-IV [facility]; Protocol Last Admin: 02/06/20 10:01 Dose: 200 mls/hr Documented by: Sodium Chloride (Normal Saline -) 1,000 mls @ 75 mls/hr IV ASDIR [facility] Last Admin: 02/05/20 04:06 Dose: 75 mls/hr Documented by: Midazolam HCl (Midazolam 100mg/100ml-0.9%Nacl) 100 mg in 100 mls @ 1 mls/hr IVPB TITR [facility]; Protocol Last Admin: 02/05/20 18:20 Dose: 8 mg/hr, 8 mls/hr Documented by: Methylprednisolone Sodium Succinate (Solu-Medrol -) 40 mg IVPUSH Q8H-IV [facility] Last Admin: 02/06/20 10:01 Dose: 40 mg Documented by: Pantoprazole Sodium (Protonix Iv) 40 mg IVPUSH DAILY [facility] Last Admin: 02/06/20 10:01 Dose: 40 mg Documented by: Sodium Chloride ([place] Nasal [place] -) 2 spray NS TID PRN PRN Reason: NASAL CONGESTION Tetrahydrozoline HCl (Visine -) 1 drop OU QID PRN PRN Reason: DRY EYES Last Admin: 01/29/20 17:22 Dose: 1 drop Documented by: ASSESSMENT AND PLAN: Acute Hypoxic and Hypercapneic Respiratory Failure s/p Cardiopulmonary Arrest Suspect Anoxic Brain Injury Pneumonia suspect Aspiration Sepsis Lactic Acidosis r/o DC Parkinsons Supranuclear Palsy - titrate up klonopin - continue antibiotics - monitor urine output, creatinine - titrate Fio2, PEEP to keep Spo2 >90% - continue volume assist control - enteral feeds - DVT/GI prophylaxis - ICU monitoring - poor overall prognosis, continue discussions regarding goals of care, advanced directives - will need tracheostomy pending family wishes critical care time spent in reviewing chart, evaluating patient and formulating plan 35 min
[2020-02-06 12:34] LABS: ARTERIAL BLD GAS O2 SATURATION 90.8 mmHg (95-98); ARTERIAL BLOOD GAS BASE EXCESS 15.1 mmol/L (-2-2); ARTERIAL BLOOD GAS PO2 64.5 mmHg (80-100); ARTERIAL BLOOD GAS pH 7.368 (7.350-7.450)
[2020-02-06 12:35] LABS: ALLENS TEST POSITIVE
[2020-02-06 12:37] LABS: VENT MODE A/C
[2020-02-06 12:38] LABS: VENT RATE 18
--- NOTE | 2020-02-06 12:39 | PN ---
Progress Note, Physician History of Present Illness: Events noted chart reviewed patient seen in the medical ICU Still very critical Tried to taper the sedation patient with increasing myoclonic jerks. No other laboratory dysfunction to explain these jerky movements. Prolactin level was normal Patient is on a low dosage of Klonopin patient still on the combination of propofol and Versed - Current Medication List Current Medications: Active Medications Acetaminophen (Tylenol Oral Solution -) 650 mg GT Q4H PRN PRN Reason: FEVER Last Admin: 01/31/20 03:14 Dose: 650 mg Documented by: Acetylcysteine (Mucomyst 20 Oral / Inh Use Only*) 200 mg NEB RQ4H [facility]RITA Last Admin: 02/06/20 11:39 Dose: 200 mg Documented by: Albuterol Sulfate (Ventolin 0.083% Nebulizer Soln -) 1 amp NEB Q6H PRN PRN Reason: SHORT OF BREATH/WHEEZING Last Admin: 02/06/20 11:40 Dose: 1 amp Documented by: Amino Acids (Prosource No Carb Liquid Pkt) 30 ml PO BIDWM [facility] Last Admin: 02/06/20 10:00 Dose: 30 ml Documented by: Carbidopa/Levodopa (Sinemet 25/250 -) 1 each PO 1600,1900,2200 [facility] Last Admin: 02/05/20 21:00 Dose: 1 each Documented by: Carbidopa/Levodopa (Sinemet 25/250 -) 1 each PO 0700,1000,1300 [facility] Last Admin: 02/06/20 10:01 Dose: 1 each Documented by: Chlorhexidine Gluconate (Hibiclens For Decolonization -) 1 applic TP HS [facility] Last Admin: 02/05/20 21:00 Dose: 1 applic Documented by: Clonazepam (Klonopin -) 0.5 mg GT BID [facility] Last Admin: 02/06/20 11:45 Dose: 0.5 mg Documented by: Enoxaparin Sodium (Lovenox -) 40 mg SQ DAILY [facility] Last Admin: 02/06/20 10:01 Dose: 40 mg Documented by: Propofol (Diprivan -) 1,000,000 mcg in 100 mls @ 2.449 mls/hr IVPB TITR [facility]; Protocol Last Admin: 02/06/20 12:29 Dose: 50 mcg/kg/min, 24.494 mls/hr Documented by: Fentanyl (Sublimaze Ivpb) 500 mcg in 100 mls @ 16.329 mls/hr IVPB TITR [facility]ITA; Protocol Last Admin: 02/06/20 07:42 Dose: 1.22 mcg/kg/hr, 20 mls/hr Documented by: Piperacillin Sod/Tazobactam (Sod 4.5 gm/ Dextrose) 100 mls @ 200 mls/hr IVPB Q6H-IV [facility]RITA; Protocol Last Admin: 02/06/20 10:01 Dose: 200 mls/hr Documented by: Sodium Chloride (Normal Saline -) 1,000 mls @ 75 mls/hr IV ASDIR [facility]RITA Last Admin: 02/05/20 04:06 Dose: 75 mls/hr Documented by: Midazolam HCl (Midazolam 100mg/100ml-0.9%Nacl) 100 mg in 100 mls @ 1 mls/hr IVPB TITR [facility]; Protocol Last Admin: 02/05/20 18:20 Dose: 8 mg/hr, 8 mls/hr Documented by: Methylprednisolone Sodium Succinate (Solu-Medrol -) 40 mg IVPUSH Q8H-IV [facility]ITA Last Admin: 02/06/20 10:01 Dose: 40 mg Documented by: Pantoprazole Sodium (Protonix Iv) 40 mg IVPUSH DAILY [facility] Last Admin: 02/06/20 10:01 Dose: 40 mg Documented by: Sodium Chloride ([place] Nasal [place] -) 2 spray NS TID PRN PRN Reason: NASAL CONGESTION Tetrahydrozoline HCl (Visine -) 1 drop OU QID PRN PRN Reason: DRY EYES Last Admin: 01/29/20 17:22 Dose: 1 drop Documented by: - Objective Vital Signs: Vital Signs Temperature 96.8 F L 02/06/20 06:00 Pulse Rate 65 02/06/20 08:52 Respiratory Rate 18 02/06/20 11:37 Blood Pressure 118/73 02/06/20 06:00 O2 Sat by Pulse Oximetry (%) 100 02/06/20 08:52 Constitutional: Yes: Well Nourished Neurological: Yes: Other (ccomatose PinPoint pupils no reaction to light positive corneals) Labs: CBC, BMP 02/06/20 05:30 02/06/20 05:30 INR, PTT INR 1.10 (0.83-1.09) H 09/02/20 05:35 Problem List - Problems (1) Parkinson disease Code(s): G20 - PARKINSON'S DISEASE (2) Cardiac arrest Code(s): I46.9 - CARDIAC ARREST, CAUSE UNSPECIFIED Assessment/Plan 11. Increase the Klonopin to 1 mg every 8 hours.. 2. Portable EEG. 3. Seizure precautions. 4. We'll speak to the son today who is a doctor regarding prognosis
--- NOTE | 2020-02-06 12:52 | PN ---
Physical Exam: SUBJECTIVE: Patient seen and examined. Off pressors. Intubated and sedated with propofol 50 mcg/kg/min, midazolam 8 mg/h, & fenantyl 20 mcg/h. Patient was seizing overnight, so 2 mg ativan was given. Patient was gurgling and had secretions coming out overnight, so respiratory was called. Anesthesia was called, and advised that the patient was bucking the vent. CXR was ordered and showed that the ETT was not in the chest; it was at the level of the c6-c7 level. Anesthesia was called again in the AM and advanced the tube. Tube is now secured at 24 cm. OBJECTIVE: Vital Signs Period Temp Pulse Resp BP Sys/Villegas Pulse Ox Last 24 Hr 96.8 F-98.2 F 65-88 10-25 115-136/67-78 91-100 GENERAL: Intubated and sedated HEENT: NC,AT, PERRL LUNGS: Breath sounds equal, clear to auscultation bilaterally, no wheezes, no crackles, no accessory muscle use. decreased breath sounds bases b/l HEART: Regular rate and rhythm, S1, S2 without murmur, rub or gallop. ABDOMEN: Soft, nontender, nondistended, normoactive bowel sounds, no guarding, PEG tube in RUQ EXTREMITIES: 2+ pulses, warm, well-perfused, no edema. minimal intermittent myoclonic jerks in feet b/l SKIN: Warm, dry, stage II ulcer on L buttock, no erythema, no discharge Laboratory Results - last 24 hr 02/06/20 02/06/20 02/06/20 05:30 05:30 07:43 WBC 6.2 RBC 3.81 L Hgb 11.6 L Hct 35.3 L MCV 92.6 MCH 30.3 MCHC 32.8 RDW 14.6 Plt Count 316 MPV 7.6 Absolute Neuts (auto) 5.5 Neutrophils % 88.4 H Lymphocytes % 5.9 L Monocytes % 4.9 Eosinophils % 0.8 D Basophils % 0.0 Nucleated RBC % 0 Anticoagulation Therapy No Result Required. Puncture Site Right radial Patient Temperature No Result Required. ABG pH 7.361 ABG pCO2 78.00 H* ABG pO2 56.7 L ABG HCO3 43.2 H ABG O2 Sat (Measured) 86.9 L ABG O2 Content No Result Required. ABG Base Excess 14.4 H Darion Test Positive Patient On Oxygen Yes O2 Delivery Device Vent Oxygen Flow Rate 60% Vent Mode A/c Vent Rate 14 Mechanical Rate Yes PEEP 7.0 Pressure Support Vent 400 Sodium 141 Potassium 3.5 Chloride 96 L Carbon Dioxide > 45 H Anion Gap 0 L BUN 12.9 Creatinine 0.2 L Est GFR (CKD-EPI)AfAm 190.73 Est GFR (CKD-EPI)NonAf 164.57 Random Glucose 108 H Calcium 7.7 L Phosphorus 1.8 L Magnesium 2.3 Total Bilirubin 0.3 AST 12 L ALT 7 L Alkaline Phosphatase 67 Total Protein 4.8 L Albumin 1.6 L 02/06/20 02/06/20 09:05 12:18 WBC RBC Hgb Hct MCV MCH MCHC RDW Plt Count MPV Absolute Neuts (auto) Neutrophils % Lymphocytes % Monocytes % Eosinophils % Basophils % Nucleated RBC % Anticoagulation Therapy No Result Required. No Result Required. Puncture Site No Result Required. Right radial Patient Temperature No Result Required. No Result Required. ABG pH 7.366 7.368 ABG pCO2 74.70 H* 78.40 H* ABG pO2 86.6 64.5 L ABG HCO3 41.8 H 44.1 H ABG O2 Sat (Measured) 95.9 90.8 L ABG O2 Content No Result Required. No Result Required. ABG Base Excess 12.8 H 15.1 H Darion Test No Result Required. Positive Patient On Oxygen Yes No Result Required. O2 Delivery Device No Result Required. No Result Required. Oxygen Flow Rate 60 60 Vent Mode A/c A/c Vent Rate 14 18 Mechanical Rate No Result Required. No Result Required. PEEP 5.0 7.0 Pressure Support Vent 400 400 Sodium Potassium Chloride Carbon Dioxide Anion Gap BUN Creatinine Est GFR (CKD-EPI)AfAm Est GFR (CKD-EPI)NonAf Random Glucose Calcium Phosphorus Magnesium Total Bilirubin AST ALT Alkaline Phosphatase Total Protein Albumin Active Medications Generic Name Dose Route Start Last Admin Trade Name Freq PRN Reason Stop Dose Admin Acetaminophen 650 mg 01/27/20 17:27 01/31/20 03:14 Tylenol Oral Solution - GT 650 mg Q4H PRN Administration FEVER Acetylcysteine 200 mg 01/29/20 16:12 02/06/20 11:39 Mucomyst 20 Oral / Inh Use Only* NEB 200 mg RQ4H AMRITA Administration Albuterol Sulfate 1 amp 02/06/20 07:44 02/06/20 11:40 Ventolin 0.083% Nebulizer Soln - NEB 1 amp Q6H PRN Administration SHORT OF BREATH/WHEEZING Amino Acids 30 ml 02/03/20 08:00 02/06/20 10:00 Prosource No Carb Liquid Pkt PO 30 ml BIDWM [facility]RITA Administration Carbidopa/Levodopa 1 each 01/29/20 16:00 02/05/20 21:00 Sinemet 25/250 - PO 1 each 1600,1900,2200 [facility]ITA Administration Carbidopa/Levodopa 1 each 01/30/20 07:00 02/06/20 10:01 Sinemet 25/250 - PO 1 each 0700,1000,1300 [facility]ITA Administration Chlorhexidine Gluconate 1 applic 01/25/20 22:00 02/05/20 21:00 Hibiclens For Decolonization - TP 1 applic HS [facility]RITA Administration Clonazepam 0.5 mg 02/06/20 11:00 02/06/20 11:45 Klonopin - GT 0.5 mg BID AMRITA Administration Enoxaparin Sodium 40 mg 01/25/20 10:00 02/06/20 10:01 Lovenox - SQ 40 mg DAILY [facility]ITA Administration Propofol 1,000,000 mcg in 100 mls @ 2.449 mls/hr 01/24/20 22:45 02/06/20 12:29 Diprivan - IVPB 50 mcg/kg/min TITR [facility]ITA 24.494 mls/hr Administration Protocol 5 MCG/KG/MIN Fentanyl 500 mcg in 100 mls @ 16.329 mls/hr 01/25/20 05:00 02/06/20 11:00 Sublimaze Ivpb IVPB 1.22 mcg/kg/hr TITR AMRITA 20 mls/hr Titration Protocol 1 MCG/KG/HR Piperacillin Sod/Tazobactam 100 mls @ 200 mls/hr 01/25/20 10:27 02/06/20 10:01 Sod 4.5 gm/ Dextrose IVPB 200 mls/hr Q6H-IV [facility]ITA Administration Protocol Sodium Chloride 1,000 mls @ 75 mls/hr 01/27/20 17:27 02/05/20 04:06 Normal Saline - IV 75 mls/hr ASDIR AMRITA Administration Midazolam HCl 100 mg in 100 mls @ 1 mls/hr 02/05/20 19:00 02/06/20 12:36 Midazolam 100mg/100ml-0.9%Nacl IVPB 8 mg/hr TITR [facility]ITA 8 mls/hr Infusion Protocol 1 MG/HR Methylprednisolone Sodium Succinate 40 mg 01/31/20 13:00 02/06/20 10:01 Solu-Medrol - IVPUSH 40 mg Q8H-IV [facility]ITA Administration Pantoprazole Sodium 40 mg 02/02/20 12:45 02/06/20 10:01 Protonix Iv IVPUSH 40 mg DAILY [facility]ITA Administration Sodium Chloride 2 spray 01/30/20 06:54 [place] Nasal [place] - NS TID PRN NASAL CONGESTION Tetrahydrozoline HCl 1 drop 01/27/20 18:51 01/29/20 17:22 Visine - OU 1 drop QID PRN Administration DRY EYES ASSESSMENT/PLAN: 64 YO M PMH HTN, BPH, Parkinson's disease with Supranuclear palsy (with PEG tube in RUQ). Found to have PNA. Admitted to ICU for Acute hypoxic, hypercapnic respiratory failure 2/2 PNA. #Neuro - Re-intubated 01/30 after cardiac arrest, sedated with propofol 50 mcg/kg/min, midazolam 8 mg/h, & fenantyl 20 mcg/h - CT head (02/01): Mild chronic microvascular ischemic changes, possible 1.4cm focal infarct in posterior fossa - CT Head (02/02): Previously identified focal attenuation in cerebellum not definitely identified -Parkinson's disease. c/w Home dose sinemet -Neuro consult appreciated. Increased klonopin from 05 mg BID to 1 mg Q8H for myoclonus [place] syndrome #Pulm # Acute hypoxic, hypercapnic respiratory failure 2/2 PNA - S/p chest tube for pleural effusion/infiltrate -CXR overnight showed ETT was not in chest and at level of C6-C7. ETT was repositioned by Anesthesia today. Repeat CXR showed better placement of ETT tip above [place] but [place] the clavicular head leve. WORSE progressive congestive & infiltrative changes with pleural fluid. -Vent AC: Rate 14, TV 400, FIO2 60%, PEEP 5, Pplat 25. -attempted to wean patient off vent today, so sedation was turned off. However, patient began to have myoclonus soon after sedation was restarted. Will consider trach and consult Dr. Nieves. Team spoke to family about inability to wean patient off of sedation because of his seizing activity - Mucomyst, Ventolin, Solumedrol 40 Q8H (01/30) -ABG: pH 7.368. INCREASED PCO2 78.4, HCO3 44.1. DECREASED O2 64.5 #Cardio #HTN: hypotensive. will hold home medications affecting BP. maintain MAP >65. continue with NS@125 ml/hr #ST elevation on EKG EKG: Sinus tachycardia. Left axis deviation. Right bundle branch block. ST elevation. 101 bpm, QTC 464. -Trop X2 negative -lactic acidosis resolved. -Cardiology consult (Dr. Jauregui): RBBB, possibly lateral ST elevations, no need for further cardiac work-up nor testing in this setting. -off of pressors #GI - PEG tube in place - c/w protonix 40 mg IV push - Family prefers J tube to decrease risk of aspiration. Will consider consulting surgery/IR after possible trach -Patient has dark blood per rectum. Lovenox was stopped. Stat Type and Screen & CBC were ordered. #ID -CXR today: WORSE progressive congestive & infiltrative changes with pleural fluid. -blood culture neg X2 (01/23), ucx neg (01/23) -sputum cx: pseudomonas aeruginosa & staph aureus. Pseudomonas sensitive to zosyn. -c/w zosyn 4.5 g IVPB Q6H (01/23) #Renal - BUN/Cr 12.9/0.2 today - UA 1+ Protein with trace ketones -3866 mL I's/2500 ml O's/1366 ml balance - [place] in place #FEN -NS @75 ml/hr -monitor lytes - Jevity #DVT PPX Patient has dark blood per rectum. Lovenox was stopped. #Lines s/p Left chest tube (01/24) mensah (01/23) ETT (01/24), (01/30 s/p cardiac arrest) RUQ peg (patient presented to ED with it) #Dispo -maintain ICU -Family wants FULL code now -son Dr. Marj Kaplan: [phone] Visit type - Emergency Visit Emergency Visit: Yes ED Registration Date: 01/24/20 Care time: The patient presented to the Emergency Department on the above date and was hospitalized for further evaluation of their emergent condition. - New Patient This patient is new to me today: No - Critical Care Critical Care patient: No - Medication Review Med list reviewed for High Risk Meds patients 65 and older: Yes ATTENDING PHYSICIAN STATEMENT I saw and evaluated the patient. I reviewed the resident's note and discussed the case with the resident. I agree with the resident's findings and plan as documented. SUBJECTIVE: OBJECTIVE: ASSESSMENT AND PLAN:
[2020-02-06] MEDS: MIDAZOLAM IN 0.9 % SOD.CHLORID 100 MG/100 ML PLAST..BAG IVPB SCH ×2 (13:08→21:21)
--- NOTE | 2020-02-06 14:29 | PN ---
Progress Note, Physician History of Present Illness: continues to be intubated remains afebrile - Current Medication List Current Medications: Active Medications Acetaminophen (Tylenol Oral Solution -) 650 mg GT Q4H PRN PRN Reason: FEVER Last Admin: 01/31/20 03:14 Dose: 650 mg Documented by: Acetylcysteine (Mucomyst 20 Oral / Inh Use Only*) 200 mg NEB RQ4H AMRITA Last Admin: 02/06/20 11:39 Dose: 200 mg Documented by: Albuterol Sulfate (Ventolin 0.083% Nebulizer Soln -) 1 amp NEB Q6H PRN PRN Reason: SHORT OF BREATH/WHEEZING Last Admin: 02/06/20 11:40 Dose: 1 amp Documented by: Amino Acids (Prosource No Carb Liquid Pkt) 30 ml PO BIDWM [facility] Last Admin: 02/06/20 10:00 Dose: 30 ml Documented by: Carbidopa/Levodopa (Sinemet 25/250 -) 1 each PO 1600,1900,2200 [facility] Last Admin: 02/05/20 21:00 Dose: 1 each Documented by: Carbidopa/Levodopa (Sinemet 25/250 -) 1 each PO 0700,1000,1300 [facility] Last Admin: 02/06/20 13:13 Dose: 1 each Documented by: Chlorhexidine Gluconate (Hibiclens For Decolonization -) 1 applic TP HS [facility] Last Admin: 02/05/20 21:00 Dose: 1 applic Documented by: Clonazepam (Klonopin -) 1 mg GT TID [facility] Enoxaparin Sodium (Lovenox -) 40 mg SQ DAILY [facility] Last Admin: 02/06/20 10:01 Dose: 40 mg Documented by: Propofol (Diprivan -) 1,000,000 mcg in 100 mls @ 2.449 mls/hr IVPB TITR [facility]; Protocol Last Admin: 02/06/20 12:29 Dose: 50 mcg/kg/min, 24.494 mls/hr Documented by: Fentanyl (Sublimaze Ivpb) 500 mcg in 100 mls @ 16.329 mls/hr IVPB TITR [facility]; Protocol Last Titration: 02/06/20 11:00 Dose: 1.22 mcg/kg/hr, 20 mls/hr Documented by: Piperacillin Sod/Tazobactam (Sod 4.5 gm/ Dextrose) 100 mls @ 200 mls/hr IVPB Q6H-IV [facility]; Protocol Last Admin: 02/06/20 10:01 Dose: 200 mls/hr Documented by: Sodium Chloride (Normal Saline -) 1,000 mls @ 75 mls/hr IV ASDIR [facility] Last Admin: 02/05/20 04:06 Dose: 75 mls/hr Documented by: Midazolam HCl (Midazolam 100mg/100ml-0.9%Nacl) 100 mg in 100 mls @ 1 mls/hr IVPB TITR [facility]; Protocol Last Admin: 02/06/20 13:08 Dose: 8 mg/hr, 8 mls/hr Documented by: Methylprednisolone Sodium Succinate (Solu-Medrol -) 40 mg IVPUSH Q8H-IV [facility] Last Admin: 02/06/20 10:01 Dose: 40 mg Documented by: Pantoprazole Sodium (Protonix Iv) 40 mg IVPUSH DAILY [facility] Last Admin: 02/06/20 10:01 Dose: 40 mg Documented by: Sodium Chloride ([place] Nasal [place] -) 2 spray NS TID PRN PRN Reason: NASAL CONGESTION Tetrahydrozoline HCl (Visine -) 1 drop OU QID PRN PRN Reason: DRY EYES Last Admin: 01/29/20 17:22 Dose: 1 drop Documented by: - Objective Vital Signs: Vital Signs Temperature 96.3 F L 02/06/20 12:00 Pulse Rate 80 02/06/20 12:00 Respiratory Rate 16 02/06/20 12:00 Blood Pressure 125/73 02/06/20 12:00 O2 Sat by Pulse Oximetry (%) 100 02/06/20 08:52 Constitutional: Yes: Other Eyes: Yes: Conjunctiva Clear Cardiovascular: Yes: S1, S2 Respiratory: Yes: Intubated, Mechanically Ventilated, Other (intubated) Gastrointestinal: Yes: Normal Bowel Sounds, Soft Musculoskeletal: Yes: WNL Extremities: Yes: Other Neurological: Yes: Other Labs: CBC, BMP 02/06/20 05:30 02/06/20 05:30 INR, PTT INR 1.10 (0.83-1.09) H 01/25/20 05:35 Assessment/Plan this patient with multiple medical issues coming in with ams and resp failure and now intubated Acute Hypoxic and Hypercapneic Respiratory Failure Pneumonia suspect Aspiration Sepsis Lactic Acidosis Parkinsons Supranuclear Palsy cardiac arrest seizures plan continue icu care iv abx organisms noted resp support close watch cc 37 min
--- NOTE | 2020-02-06 16:53 | PN ---
Progress Note (short form) - Note Progress Note: 64 year old male with PMH of Parkinson's disease with Progressive Supranuclear palsy, dysphagia s/p PEG tube and on t/feeds at baseline. Last admission at [facility] was in November ( discharged 12/30/19) for Aspiration PNA. At his baseline, he is mostly bed bound, and uses the wheelchair to be transported to the bathroom. He was normally able to take a few steps with assistance, responds occasionally to verbal commands, and is alert and oriented, although non-verbal and communicates minimally by hand gestures as per family. He receives Jevity feeds 6 times a day, and has no PO intake. He lives with his , and pt's daughter and son assist their mother with taking care of the patient. EMS was called and pt was found to be hypoxic in the 80s on home oxygen of 4 L on 01/24/20- which improved to 90s after Ambu bagging. In the ER, he was sedated and intubated, septic workup initiated, and admitted to the ICU. In the ER pt again began to desat, CXR showed massive left sided effusion/infiltrate and chest tube was placed with improvement in SpO2.He was started on Zosyn for aspiration pneumonia. He is also receiving pressors/ steroids. Pt extubated on 01/28/20, re-intubated s/p Cardiac arrest 01/30. He has not been responsive since the cardiac arrest. However he had seizure activity and is currently on versed, keppra and propofol ( received iv fosphenytoin also yesterday).He is a full code. He also has a stage 2 PU left buttock. He received botox injection for dysphonia recently as per neurology prior to hospitalization. Parkinsons disease with PSN, bed and w/c bound at baseline, non verbal and on t/feeds recurrent aspiration pneumonia left lung infiltrate/ effusion/ concern for mucus plug acute respiratory failure, vent dependent sepsis pressure ulcer s/p cardiac arrest new onset seizures suspicion for interval infarct seen on CTH Full code Prognosis is guarded. Chances of a meaningful recovery appear slim. family want full code for now and are requesting jejunostomy and possible tracheostomy. Problem List - Problems (1) Cardiac arrest Code(s): I46.9 - CARDIAC ARREST, CAUSE UNSPECIFIED (2) Pneumonia Code(s): J18.9 - PNEUMONIA, UNSPECIFIED ORGANISM Qualifiers: Pneumonia type: due to unspecified organism Laterality: bilateral Lung location: unspecified part of lung Qualified Code(s): J18.9 - Pneumonia, unspecified organism (3) Respiratory failure Code(s): J96.90 - RESPIRATORY FAILURE, UNSP, UNSP W HYPOXIA OR HYPERCAPNIA Qualifiers: Chronicity: acute Respiratory failure complication: hypoxia Qualified Code(s): J96.01 - Acute respiratory failure with hypoxia (4) Functional quadriplegia Code(s): R53.2 - FUNCTIONAL QUADRIPLEGIA (5) Gastrostomy status Code(s): Z93.1 - GASTROSTOMY STATUS (6) Parkinson disease Code(s): G20 - PARKINSON'S DISEASE (7) Supranuclear palsy Code(s): G23.1 - PROGRESSIVE SUPRANUCLEAR OPHTHALMOPLEGIA
[2020-02-06 18:50] LABS: HEMATOCRIT 34.6 % (35.4-49); HEMOGLOBIN 11.3 GM/dL (11.7-16.9); MCH 30.1 pg (25.7-33.7); MCHC 32.5 g/dl (32.0-35.9); MEAN CELL VOLUME 92.5 fl (80-96); MEAN PLT VOLUME 7.6 fl (7.5-11.1); PLATELET COUNT 303 K/MM3 (134-434); RBC 3.74 M/mm3 (4.00-5.60); RDW 14.6 % (11.9-15.9); WHITE BLOOD COUNT 10.1 K/mm3 (4.0-10.0)
[2020-02-06 18:59] LABS: INR 1.04 (0.83-1.09); PROTHROMBIN TIME (PATIENT) 12.3 SEC (9.7-13.0)
[2020-02-06] MEDS ORDERED: POTASSIUM PHOSPHATE 20 MM in DEXTROSE 5%-WATER - 250 ML IVPB ONE (19:00)
[2020-02-06 19:02] LABS: ACTIVATED PTT 30.9 SECONDS (25.2-36.5)
[2020-02-06] MEDS: clonazePAM 0.5 MG TABLET GT SCH (21:22)
[2020-02-06] MEDS: CHLORHEXIDINE GLUCONATE 4% CLEANSER FOR DECOLONIZATION TP SCH (21:23)
[2020-02-07] MEDS: ACETYLCYSTEINE 20% 200MG/ML 4 ML VIAL *FOR ORAL / INH USE ONLY NEB SCH ×6 (00:10→20:20)
[2020-02-07] MEDS: ALBUTEROL SO4 0.083% IH SOL 2.5 MG/3 ML VIAL.NEB. NEB PRN ×6 (00:12→20:20)
[2020-02-07] MEDS: PROPOFOL 1,000,000 MCG/100 ML VIAL IVPB SCH ×5 (00:47→22:58)
[2020-02-07] MEDS: CARBIDOPA/LEVODOPA 25/250 TABLET (FP) PO SCH ×6 (00:47→21:41)
[2020-02-07] MEDS: PIPERACILLIN/TAZOB 4.5 GM 4.5 GM in DEXTROSE 5%-WATER 100 ML IVPB SCH ×4 (02:05→20:08)
[2020-02-07] MEDS: methylPREDNISolone NA SUCC 40 MG/1 ML VIAL IVPUSH SCH ×3 (02:05→17:19)
[2020-02-07] MEDS ORDERED: DEXTROSE 5%-WATER 100 ML IVPB ONE ×4 (02:08→19:13)
[2020-02-07] MEDS ORDERED: PIPERACILLIN/TAZOBACTAM 4.5 GM VIAL IVPB ONE ×4 (02:08→19:13)
[2020-02-07 06:06] LABS: ARTERIAL BLD GAS O2 SATURATION 96.4 mmHg (95-98); ARTERIAL BLOOD GAS BASE EXCESS 10.5 mmol/L (-2-2); ARTERIAL BLOOD GAS PO2 88.8 mmHg (80-100)
[2020-02-07] MEDS: clonazePAM 0.5 MG TABLET GT SCH (06:06)
[2020-02-07 06:11] LABS: ALLENS TEST POSITIVE
[2020-02-07 06:12] LABS: VENT MODE A/C; VENT RATE 18
[2020-02-07 06:23] LABS: BASO % 0.1 % (0-2.0); EOS % 0.2 % (0-4.5); HEMATOCRIT 31.9 % (35.4-49); HEMOGLOBIN 10.6 GM/dL (11.7-16.9); LYMPH % 5.9 % (8-40); MCH 30.5 pg (25.7-33.7); MCHC 33.3 g/dl (32.0-35.9); MEAN CELL VOLUME 91.4 fl (80-96); MEAN PLT VOLUME 7.8 fl (7.5-11.1); MONO % 4.2 % (3.8-10.2); NEUT % 89.6 % (42.8-82.8); PLATELET COUNT 322 K/MM3 (134-434); RBC 3.49 M/mm3 (4.00-5.60); RDW 14.4 % (11.9-15.9); WHITE BLOOD COUNT 8.3 K/mm3 (4.0-10.0)
[2020-02-07 06:28] LABS: ALBUMIN 1.6 g/dl (3.4-5.0); ALK PHOS 65 U/L (45-117); ANION GAP -1 MMOL/L (8-16); BILIRUBIN,TOTAL 0.6 mg/dL (0.2-1); BLOOD UREA NITROGEN 13.2 mg/dL (7-18); CALCIUM 7.4 mg/dL (8.5-10.1); CHLORIDE 98 mmol/L (98-107); CO2 45 mmol/L (21-32); CREATININE 0.3 mg/dL (0.55-1.3); GLUCOSE,RANDOM 108 mg/dL (74-106); MAGNESIUM 2.1 mg/dL (1.8-2.4); PHOSPHOROUS 2.2 mg/dL (2.5-4.9); POTASSIUM 3.9 mmol/L (3.5-5.1); SGOT/AST 11 U/L (15-37); SODIUM 142 mmol/L (136-145); TOT PROT 4.6 g/dl (6.4-8.2)
[2020-02-07] MEDS ORDERED: NAPH,MB-DB/K PH,MBDB POWDER PACKET PO ONE (06:36)
[2020-02-07 06:38] LABS: SGPT/ALT < 6 U/L (13-61)
--- NOTE | 2020-02-07 09:10 | PN ---
Progress Note, Physician - Current Medication List Current Medications: Active Medications Acetaminophen (Tylenol Oral Solution -) 650 mg GT Q4H PRN PRN Reason: FEVER Last Admin: 01/31/20 03:14 Dose: 650 mg Documented by: Acetylcysteine (Mucomyst 20 Oral / Inh Use Only*) 200 mg NEB RQ4H [facility]RITA Last Admin: 02/07/20 08:10 Dose: 200 mg Documented by: Albuterol Sulfate (Ventolin 0.083% Nebulizer Soln -) 1 amp NEB Q6H PRN PRN Reason: SHORT OF BREATH/WHEEZING Last Admin: 02/07/20 08:10 Dose: 1 amp Documented by: Amino Acids (Prosource No Carb Liquid Pkt) 30 ml PO BIDWM [facility]RITA Last Admin: 02/06/20 17:52 Dose: 30 ml Documented by: Carbidopa/Levodopa (Sinemet 25/250 -) 1 each PO 1600,1900,2200 [facility] Last Admin: 02/07/20 00:47 Dose: 1 each Documented by: Carbidopa/Levodopa (Sinemet 25/250 -) 1 each PO 0700,1000,1300 [facility] Last Admin: 02/07/20 06:06 Dose: 1 each Documented by: Chlorhexidine Gluconate (Hibiclens For Decolonization -) 1 applic TP HS [facility] Last Admin: 02/06/20 21:23 Dose: 1 applic Documented by: Clonazepam (Klonopin -) 1 mg GT TID [facility]ITA Last Admin: 02/07/20 06:06 Dose: 1 mg Documented by: Propofol (Diprivan -) 1,000,000 mcg in 100 mls @ 2.449 mls/hr IVPB TITR [facility]ITA; Protocol Last Admin: 02/07/20 06:07 Dose: 50 mcg/kg/min, 24.494 mls/hr Documented by: Piperacillin Sod/Tazobactam (Sod 4.5 gm/ Dextrose) 100 mls @ 200 mls/hr IVPB Q6H-IV [facility]ITA; Protocol Last Admin: 02/07/20 02:05 Dose: 200 mls/hr Documented by: Sodium Chloride (Normal Saline -) 1,000 mls @ 75 mls/hr IV ASDIR [facility]RITA Last Admin: 02/06/20 07:00 Dose: 75 mls/hr Documented by: Midazolam HCl (Midazolam 100mg/100ml-0.9%Nacl) 100 mg in 100 mls @ 1 mls/hr IVPB TITR [facility]; Protocol Last Admin: 02/06/20 21:21 Dose: 10 mg/hr, 10 mls/hr Documented by: Methylprednisolone Sodium Succinate (Solu-Medrol -) 40 mg IVPUSH Q8H-IV [facility] Last Admin: 02/07/20 02:05 Dose: 40 mg Documented by: Pantoprazole Sodium (Protonix Iv) 40 mg IVPUSH DAILY [facility] Last Admin: 02/06/20 10:01 Dose: 40 mg Documented by: Sodium Chloride ([place] Nasal [place] -) 2 spray NS TID PRN PRN Reason: NASAL CONGESTION Tetrahydrozoline HCl (Visine -) 1 drop OU QID PRN PRN Reason: DRY EYES Last Admin: 01/29/20 17:22 Dose: 1 drop Documented by: - Objective Vital Signs: Vital Signs Temperature 97.9 F 02/07/20 06:00 Pulse Rate 75 02/07/20 08:22 Respiratory Rate 19 02/07/20 08:22 Blood Pressure 121/72 02/07/20 06:00 O2 Sat by Pulse Oximetry (%) 99 02/07/20 08:22 Labs: CBC, BMP 02/07/20 05:30 02/07/20 05:30 INR, PTT INR 1.04 (0.83-1.09) 02/06/20 18:00
[2020-02-07] MEDS ORDERED: FENTANYL IVPB 500 MCG/100 ML BAG IVPB ONE (09:36)
[2020-02-07] MEDS: AMINO ACIDS/PROTEIN HYDROLYS 30 ML LIQUID.PKT PO SCH ×2 (09:46→17:20)
[2020-02-07] MEDS: FENTANYL IVPB 500 MCG/100 ML BAG IVPB SCH ×2 (09:48→14:59)
[2020-02-07] MEDS: TETRAHYDROZOLINE HCL EYE DROPS OU PRN (09:49)
[2020-02-07] MEDS: PANTOPRAZOLE SODIUM 40 MG VIAL IVPUSH SCH ×2 (09:49→22:58)
--- NOTE | 2020-02-07 10:35 | PN ---
Progress Note, Physician Chief Complaint: Acute Hypoxic and Hypercapneic Respiratory Failure Pneumonia suspect Aspiration Sepsis Lactic Acidosis Parkinsons Supranuclear Palsy History of Present Illness: 4 year old non-verbal male with PMH of Parkinson's disease with Supranuclear palsy with PEG tube placed. Last admission at [facility] was in November for Aspiration PNA. Pt unable to communicate and family not present at bedside. As per ER staff, pt was with AMS earlier today, pt is non verbal at baseline but is able to communicate minimally using hand gestures. EMS was called and pt was found to be hypoxic in the 80s on home oxygen of 2L, which improved to 90s after Ambu bagging. In the ER, he was sedated and intubated, septic workup initiated, and admitted to the ICU. In the ER pt again began to desat, CXR showed massive left sided effusion/infiltrate and chest tube was palced with improvement in SpO2. Pt extubated on 01/28/20, re-intubated s/p Cardiac arrest on 01/31/20 Seen by palliative medicine-Family wants everything done Off pressors - Current Medication List Current Medications: Active Medications Acetaminophen (Tylenol Oral Solution -) 650 mg GT Q4H PRN PRN Reason: FEVER Last Admin: 01/31/20 03:14 Dose: 650 mg Documented by: Acetylcysteine (Mucomyst 20 Oral / Inh Use Only*) 200 mg NEB RQ4H AMRITA Last Admin: 02/07/20 08:10 Dose: 200 mg Documented by: Albuterol Sulfate (Ventolin 0.083% Nebulizer Soln -) 1 amp NEB Q6H PRN PRN Reason: SHORT OF BREATH/WHEEZING Last Admin: 02/07/20 08:10 Dose: 1 amp Documented by: Amino Acids (Prosource No Carb Liquid Pkt) 30 ml PO BIDWM AMRITA Last Admin: 02/07/20 09:46 Dose: 30 ml Documented by: Carbidopa/Levodopa (Sinemet 25/250 -) 1 each PO 1600,1900,2200 AMRITA Last Admin: 02/07/20 00:47 Dose: 1 each Documented by: Carbidopa/Levodopa (Sinemet 25/250 -) 1 each PO 0700,1000,1300 AMRITA Last Admin: 02/07/20 09:47 Dose: 1 each Documented by: Chlorhexidine Gluconate (Hibiclens For Decolonization -) 1 applic TP HS AMRITA Last Admin: 02/06/20 21:23 Dose: 1 applic Documented by: Clonazepam (Klonopin -) 1 mg GT TID AMRITA Last Admin: 02/07/20 06:06 Dose: 1 mg Documented by: Propofol (Diprivan -) 1,000,000 mcg in 100 mls @ 2.449 mls/hr IVPB TITR AMRITA; Protocol Last Admin: 02/07/20 06:07 Dose: 50 mcg/kg/min, 24.494 mls/hr Documented by: Piperacillin Sod/Tazobactam (Sod 4.5 gm/ Dextrose) 100 mls @ 200 mls/hr IVPB Q6H-IV AMRITA; Protocol Last Admin: 02/07/20 09:48 Dose: 200 mls/hr Documented by: Sodium Chloride (Normal Saline -) 1,000 mls @ 75 mls/hr IV ASDIR AMRITA Last Admin: 02/06/20 07:00 Dose: 75 mls/hr Documented by: Midazolam HCl (Midazolam 100mg/100ml-0.9%Nacl) 100 mg in 100 mls @ 1 mls/hr IVPB TITR AMRITA; Protocol Last Admin: 02/06/20 21:21 Dose: 10 mg/hr, 10 mls/hr Documented by: Methylprednisolone Sodium Succinate (Solu-Medrol -) 40 mg IVPUSH Q8H-IV AMRITA Last Admin: 02/07/20 09:49 Dose: 40 mg Documented by: Pantoprazole Sodium (Protonix Iv) 40 mg IVPUSH DAILY AMRITA Last Admin: 02/07/20 09:49 Dose: 40 mg Documented by: Sodium Chloride ([place] Nasal [place] -) 2 spray NS TID PRN PRN Reason: NASAL CONGESTION Tetrahydrozoline HCl (Visine -) 1 drop OU QID PRN PRN Reason: DRY EYES Last Admin: 02/07/20 09:49 Dose: 1 drop Documented by: - Objective Vital Signs: Vital Signs Temperature 98.4 F 02/07/20 08:00 Pulse Rate 75 02/07/20 08:22 Respiratory Rate 19 02/07/20 08:22 Blood Pressure 120/67 02/07/20 08:00 O2 Sat by Pulse Oximetry (%) 99 02/07/20 08:22 Constitutional: Yes: Well Nourished, No Distress, Calm Cardiovascular: Yes: Regular Rate and Rhythm Respiratory: Yes: Regular, CTA Bilaterally, Mechanically Ventilated Gastrointestinal: Yes: Normal Bowel Sounds, Soft Genitourinary: Yes: Merchant Present Musculoskeletal: Yes: Muscle Weakness Extremities: Yes: Other (contreacted) Edema: No Peripheral Pulses WNL: Yes Neurological: Yes: Other (sedated) Labs: CBC, BMP 02/07/20 05:30 02/07/20 05:30 INR, PTT INR 1.04 (0.83-1.09) 02/06/20 18:00 Problem List - Problems (1) Pneumonia Assessment/Plan: -recurrent -ID consult -IV Zosyn -IV medrol -Serial CXR's -Pulmonary on board -Bronchodilators -Mech vent -COVID 19 PCR negative -Cultures: Microbiology 01/27/20 07:00 Sputum - Endotrachea Suction/Ventilator Gram Stain - Final 01/25/20 14:00 Sputum - Endotrachea Suction/Ventilator Gram Stain - Final 01/25/20 14:00 Sputum - Endotrachea Suction/Ventilator Sputum Culture - Final Pseudomonas Aeruginosa Staphylococcus Aureus 01/24/20 23:05 Blood - Peripheral Venous Blood Culture - Preliminary NO GROWTH OBTAINED AFTER 48 HOURS, INCUBATION TO CONTINUE FOR 3 DAYS. 01/24/20 23:05 Blood - Peripheral Venous Blood Culture - Preliminary NO GROWTH OBTAINED AFTER 48 HOURS, INCUBATION TO CONTINUE FOR 3 DAYS. 01/24/20 23:15 Urine - Urine - Catheterized Urine Culture - Final NO GROWTH OBTAINED Problems reviewed: Yes Code(s): J18.9 - PNEUMONIA, UNSPECIFIED ORGANISM Qualifiers: Pneumonia type: due to unspecified organism Laterality: bilateral Lung location: unspecified part of lung Qualified Code(s): J18.9 - Pneumonia, unspecified organism (2) Respiratory failure Assessment/Plan: as above -CXR worse-progress opacification of left hemithorax -trach? Consult ENT -S/p chest tube for pleural effusion/infiltrate -Vent AC: Rate 14, TV 400, FIO2 60%, PEEP 5, Pplat 25. -Attempted weaning, patient began to have myoclonus off sedation. -Mucomyst, Ventolin, Solumedrol 40 Q8H Problems reviewed: Yes Code(s): J96.90 - RESPIRATORY FAILURE, UNSP, UNSP W HYPOXIA OR HYPERCAPNIA Qualifiers: Chronicity: acute Respiratory failure complication: hypoxia Qualified Code(s): J96.01 - Acute respiratory failure with hypoxia (3) Functional quadriplegia Problems reviewed: Yes Code(s): R53.2 - FUNCTIONAL QUADRIPLEGIA (4) Parkinson disease Assessment/Plan: -Continue Sinemet Problems reviewed: Yes Code(s): G20 - PARKINSON'S DISEASE (5) Supranuclear palsy Assessment/Plan: -Seen by neurology -CT head (02/01): Mild chronic microvascular ischemic changes, possible 1.4cm focal infarct in posterior fossa -CT Head (02/02): Previously identified focal attenuation in cerebellum not definitely identified Problems reviewed: Yes Code(s): G23.1 - PROGRESSIVE SUPRANUCLEAR OPHTHALMOPLEGIA (6) Cardiac arrest Assessment/Plan: -re-intubated Problems reviewed: Yes Code(s): I46.9 - CARDIAC ARREST, CAUSE UNSPECIFIED (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 -Increased klonopin from 05 mg BID to 1 mg Q8H for myoclonus Lans Santi syndrome Problems reviewed: Yes Code(s): G25.3 - MYOCLONUS Assessment/Plan See problem list
--- NOTE | 2020-02-07 11:14 | PN ---
Teaching Attending Note Name of Resident: Errol Franco ATTENDING PHYSICIAN STATEMENT I saw and evaluated the patient. I reviewed the resident's note and discussed the case with the resident. I agree with the resident's findings and plan as documented. SUBJECTIVE: Pt seen and examined in the ICU. Intubated, sedated. No pressors. Fio2 70%. Incr eased myoclonic activity off sedation. OBJECTIVE: Vital Signs Period Temp Pulse Resp BP Sys/Villegas Pulse Ox Last 24 Hr 96.3 F-98.4 F 69-85 16-28 109-125/62-75 19-100 Intake & Output 02/04/20 02/05/20 02/06/20 02/07/20 23:59 23:59 23:59 23:59 Intake Total 4801 3866 3372.5 1496 Output Total 1700 2500 3200 800 Balance 3101 1366 172.5 696 Weight 71.123 kg 74.843 kg 77.791 kg Gen: intubated, sedated Heart: RRR Lung: scattered rhonchi Abd: soft, nontender Ext: no edema CBC, BMP 02/07/20 05:30 02/07/20 05:30 Active Medications Acetaminophen (Tylenol Oral Solution -) 650 mg GT Q4H PRN PRN Reason: FEVER Last Admin: 01/31/20 03:14 Dose: 650 mg Documented by: Acetylcysteine (Mucomyst 20 Oral / Inh Use Only*) 200 mg NEB RQ4H AMRITA Last Admin: 02/07/20 08:10 Dose: 200 mg Documented by: Albuterol Sulfate (Ventolin 0.083% Nebulizer Soln -) 1 amp NEB Q6H PRN PRN Reason: SHORT OF BREATH/WHEEZING Last Admin: 02/07/20 08:10 Dose: 1 amp Documented by: Amino Acids (Prosource No Carb Liquid Pkt) 30 ml PO BIDWM AMRITA Last Admin: 02/07/20 09:46 Dose: 30 ml Documented by: Carbidopa/Levodopa (Sinemet 25/250 -) 1 each PO 1600,1900,2200 AMRITA Last Admin: 02/07/20 00:47 Dose: 1 each Documented by: Carbidopa/Levodopa (Sinemet 25/250 -) 1 each PO 0700,1000,1300 AMRITA Last Admin: 02/07/20 09:47 Dose: 1 each Documented by: Chlorhexidine Gluconate (Hibiclens For Decolonization -) 1 applic TP HS AMRITA Last Admin: 02/06/20 21:23 Dose: 1 applic Documented by: Clonazepam (Klonopin -) 2 mg GT TID AMRITA Propofol (Diprivan -) 1,000,000 mcg in 100 mls @ 2.449 mls/hr IVPB TITR AMRITA; Protocol Last Admin: 02/07/20 06:07 Dose: 50 mcg/kg/min, 24.494 mls/hr Documented by: Piperacillin Sod/Tazobactam (Sod 4.5 gm/ Dextrose) 100 mls @ 200 mls/hr IVPB Q6H-IV AMRITA; Protocol Last Admin: 02/07/20 09:48 Dose: 200 mls/hr Documented by: Sodium Chloride (Normal Saline -) 1,000 mls @ 75 mls/hr IV ASDIR AMRITA Last Admin: 02/06/20 07:00 Dose: 75 mls/hr Documented by: Midazolam HCl (Midazolam 100mg/100ml-0.9%Nacl) 100 mg in 100 mls @ 1 mls/hr IVPB TITR AMRITA; Protocol Last Admin: 02/06/20 21:21 Dose: 10 mg/hr, 10 mls/hr Documented by: Methylprednisolone Sodium Succinate (Solu-Medrol -) 40 mg IVPUSH Q8H-IV AMRITA Last Admin: 02/07/20 09:49 Dose: 40 mg Documented by: Pantoprazole Sodium (Protonix Iv) 40 mg IVPUSH DAILY AMRITA Last Admin: 02/07/20 09:49 Dose: 40 mg Documented by: Sodium Chloride ([place] Nasal [place] -) 2 spray NS TID PRN PRN Reason: NASAL CONGESTION Tetrahydrozoline HCl (Visine -) 1 drop OU QID PRN PRN Reason: DRY EYES Last Admin: 02/07/20 09:49 Dose: 1 drop Documented by: ASSESSMENT AND PLAN: Acute Hypoxic and Hypercapneic Respiratory Failure s/p Cardiopulmonary Arrest Suspect Anoxic Brain Injury Pneumonia suspect Aspiration Sepsis Lactic Acidosis r/o CT Parkinsons Supranuclear Palsy - titrate up klonopin - continue antibiotics - monitor urine output, creatinine - titrate Fio2, PEEP to keep Spo2 >90% - continue volume assist control - enteral feeds - DVT/GI prophylaxis - continue ICU monitoring - poor overall prognosis, continue discussions regarding goals of care, advanced directives - will need tracheostomy pending family wishes - recommend comfort measures critical care time spent in reviewing chart, evaluating patient and formulating plan 35 min
--- NOTE | 2020-02-07 11:26 | PN ---
Physical Exam: SUBJECTIVE: Patient seen and examined. Overnight, patient had 1 medium dark red bloody stool and 1 small dark red bloody stool as per overnight Nurse. In the AM patient had another dark red bloody stool. CBC was reordered and GI was consulted. Attempted to wean patient off ventilator again today, so turned off the sedation. Within minutes of shutting off the sedation, patient began to have increased myoclonic jerks and desaturated to ~70%. As a result, the sedation was turned on again. Team informed family. No pressors. Intubated and sedated with midazolam 10 mg/h, propofol 50 mcg/kg/min and fentanl 100 mcg/h. OBJECTIVE: Vital Signs Period Temp Pulse Resp BP Sys/Villegas Pulse Ox Last 24 Hr 96.3 F-98.4 F 69-85 16-28 109-125/62-75 19-100 GENERAL: Intubated and sedated HEENT: NC,AT, pinpoint pupils, edema of lips LUNGS: Breath sounds equal, clear to auscultation bilaterally, no wheezes, no crackles, no accessory muscle use. decreased breath sounds bases b/l HEART: Regular rate and rhythm, S1, S2 without murmur, rub or gallop. ABDOMEN: Soft, nontender, nondistended, normoactive bowel sounds, no guarding, PEG tube in RUQ EXTREMITIES: 2+ pulses, warm, well-perfused, no edema. minimal intermittent myoclonic jerks in feet b/l. 1+ edema UE SKIN: Warm, dry, stage III ulcer on L buttock, no erythema, no discharge Neuro: corneal reflex intact, no gag reflex appreciated Laboratory Results - last 24 hr 02/06/20 02/06/20 02/06/20 12:18 18:00 18:00 WBC 10.1 H RBC 3.74 L Hgb 11.3 L Hct 34.6 L MCV 92.5 MCH 30.1 MCHC 32.5 RDW 14.6 Plt Count 303 MPV 7.6 Absolute Neuts (auto) Neutrophils % Lymphocytes % Monocytes % Eosinophils % Basophils % Nucleated RBC % PT with INR INR PTT (Actin FS) Anticoagulation Therapy No Result Required. Puncture Site Right radial Patient Temperature No Result Required. ABG pH 7.368 ABG pCO2 78.40 H* ABG pO2 64.5 L ABG HCO3 44.1 H ABG O2 Sat (Measured) 90.8 L ABG O2 Content No Result Required. ABG Base Excess 15.1 H Darion Test Positive Patient On Oxygen No Result Required. O2 Delivery Device No Result Required. Oxygen Flow Rate 60 Vent Mode A/c Vent Rate 18 Mechanical Rate No Result Required. PEEP 7.0 Pressure Support Vent 400 Sodium Potassium Chloride Carbon Dioxide Anion Gap BUN Creatinine Est GFR (CKD-EPI)AfAm Est GFR (CKD-EPI)NonAf POC Glucometer Random Glucose Calcium Phosphorus Magnesium Total Bilirubin AST ALT Alkaline Phosphatase Total Protein Albumin Blood Type A NEGATIVE Antibody Screen Negative 02/06/20 02/06/20 02/07/20 18:00 21:49 05:30 WBC 8.3 RBC 3.49 L Hgb 10.6 L Hct 31.9 L MCV 91.4 MCH 30.5 MCHC 33.3 RDW 14.4 Plt Count 322 MPV 7.8 Absolute Neuts (auto) 7.4 Neutrophils % 89.6 H Lymphocytes % 5.9 L Monocytes % 4.2 Eosinophils % 0.2 Basophils % 0.1 D Nucleated RBC % 0 PT with INR 12.30 INR 1.04 PTT (Actin FS) 30.9 Anticoagulation Therapy Puncture Site Patient Temperature ABG pH ABG pCO2 ABG pO2 ABG HCO3 ABG O2 Sat (Measured) ABG O2 Content ABG Base Excess Darion Test Patient On Oxygen O2 Delivery Device Oxygen Flow Rate Vent Mode Vent Rate Mechanical Rate PEEP Pressure Support Vent Sodium Potassium Chloride Carbon Dioxide Anion Gap BUN Creatinine Est GFR (CKD-EPI)AfAm Est GFR (CKD-EPI)NonAf POC Glucometer 266 Random Glucose Calcium Phosphorus Magnesium Total Bilirubin AST ALT Alkaline Phosphatase Total Protein Albumin Blood Type Antibody Screen 02/07/20 02/07/20 05:30 05:50 WBC RBC Hgb Hct MCV MCH MCHC RDW Plt Count MPV Absolute Neuts (auto) Neutrophils % Lymphocytes % Monocytes % Eosinophils % Basophils % Nucleated RBC % PT with INR INR PTT (Actin FS) Anticoagulation Therapy No Result Required. Puncture Site Right radial Patient Temperature No Result Required. ABG pH 7.390 ABG pCO2 64.30 H ABG pO2 88.8 ABG HCO3 38.0 H ABG O2 Sat (Measured) 96.4 ABG O2 Content No Result Required. ABG Base Excess 10.5 H Darion Test Positive Patient On Oxygen Yes O2 Delivery Device Vent Oxygen Flow Rate 60% Vent Mode A/c Vent Rate 18 Mechanical Rate Yes PEEP 7.0 Pressure Support Vent 400 Sodium 142 Potassium 3.9 Chloride 98 Carbon Dioxide 45 H Anion Gap -1 L BUN 13.2 Creatinine 0.3 L Est GFR (CKD-EPI)AfAm 161.45 Est GFR (CKD-EPI)NonAf 139.30 POC Glucometer Random Glucose 108 H Calcium 7.4 L Phosphorus 2.2 L Magnesium 2.1 Total Bilirubin 0.6 AST 11 L ALT < 6 L Alkaline Phosphatase 65 Total Protein 4.6 L Albumin 1.6 L Blood Type Antibody Screen Active Medications Generic Name Dose Route Start Last Admin Trade Name Freq PRN Reason Stop Dose Admin Acetaminophen 650 mg 01/27/20 17:27 01/31/20 03:14 Tylenol Oral Solution - GT 650 mg Q4H PRN Administration FEVER Acetylcysteine 200 mg 01/29/20 16:12 02/07/20 08:10 Mucomyst 20 Oral / Inh Use Only* NEB 200 mg RQ4H AMRITA Administration Albuterol Sulfate 1 amp 02/06/20 07:44 02/07/20 08:10 Ventolin 0.083% Nebulizer Soln - NEB 1 amp Q6H PRN Administration SHORT OF BREATH/WHEEZING Amino Acids 30 ml 02/03/20 08:00 02/07/20 09:46 Prosource No Carb Liquid Pkt PO 30 ml BIDWM AMRITA Administration Carbidopa/Levodopa 1 each 01/29/20 16:00 02/07/20 00:47 Sinemet 25/250 - PO 1 each 1600,1900,2200 AMRITA Administration Carbidopa/Levodopa 1 each 01/30/20 07:00 02/07/20 09:47 Sinemet 25/250 - PO 1 each 0700,1000,1300 AMRITA Administration Chlorhexidine Gluconate 1 applic 01/25/20 22:00 02/06/20 21:23 Hibiclens For Decolonization - TP 1 applic HS AMRITA Administration Clonazepam 2 mg 02/07/20 10:45 Klonopin - GT TID AMRITA Propofol 1,000,000 mcg in 100 mls @ 2.449 mls/hr 01/24/20 22:45 02/07/20 06:07 Diprivan - IVPB 50 mcg/kg/min TITR AMRITA 24.494 mls/hr Administration Protocol 5 MCG/KG/MIN Piperacillin Sod/Tazobactam 100 mls @ 200 mls/hr 01/25/20 10:27 02/07/20 09:48 Sod 4.5 gm/ Dextrose IVPB 200 mls/hr Q6H-IV AMRITA Administration Protocol Sodium Chloride 1,000 mls @ 75 mls/hr 01/27/20 17:27 02/06/20 07:00 Normal Saline - IV 75 mls/hr ASDIR AMRITA Administration Midazolam HCl 100 mg in 100 mls @ 1 mls/hr 02/05/20 19:00 02/06/20 21:21 Midazolam 100mg/100ml-0.9%Nacl IVPB 10 mg/hr TITR AMRITA 10 mls/hr Administration Protocol 1 MG/HR Methylprednisolone Sodium Succinate 40 mg 01/31/20 13:00 02/07/20 09:49 Solu-Medrol - IVPUSH 40 mg Q8H-IV AMRITA Administration Pantoprazole Sodium 40 mg 02/02/20 12:45 02/07/20 09:49 Protonix Iv IVPUSH 40 mg DAILY AMRITA Administration Sodium Chloride 2 spray 01/30/20 06:54 [place] Nasal [place] - NS TID PRN NASAL CONGESTION Tetrahydrozoline HCl 1 drop 01/27/20 18:51 02/07/20 09:49 Visine - OU 1 drop QID PRN Administration DRY EYES ASSESSMENT/PLAN: 64 YO M PMH HTN, BPH, Parkinson's disease with Supranuclear palsy (with PEG tube in RUQ). Found to have PNA. Admitted to ICU for Acute hypoxic, hypercapnic respiratory failure 2/2 PNA. #Neuro - Re-intubated 01/30 after cardiac arrest, Intubated and sedated with midazolam 10 mg/h, propofol 50 mcg/kg/min and fentanl 100 mcg/h. - CT head (02/01): Mild chronic microvascular ischemic changes, possible 1.4cm focal infarct in posterior fossa - CT Head (02/02): Previously identified focal attenuation in cerebellum not definitely identified -Parkinson's disease. c/w Home dose sinemet -Increased klonopin from 1 mg Q8H to 2 mg Q8H for myoclonus Lans Santi syndrome -Neuro consult appreciated. STARTED Depakote 500 mg IV every 12 hours #Pulm # Acute hypoxic, hypercapnic respiratory failure 2/2 PNA - S/p chest tube for pleural effusion/infiltrate -CXR: progressive infiltrate & fluid on Left with some Right perihilar changes. -Vent AC: Rate 18, TV 400, FIO2 60%, PEEP 7, Pplat 22. -Attempted to wean patient off ventilator again today, so turned off the sedation. Within minutes of shutting off the sedation, patient began to have increased myoclonic jerks and desaturated to ~70%. As a result, the sedation was turned on again. Team informed family. Will consider trach and consult Dr. Shi. - Mucomyst, Ventolin, Solumedrol 40 Q8H (01/30) -ABG improved from yesterday: pH 7.39. INCREASED PCO2 64.8, HCO3 38. O2 88.8 WNL #Cardio #HTN: hypotensive. will hold home medications affecting BP. maintain MAP >65. continue with NS@125 ml/hr #ST elevation on EKG EKG: Sinus tachycardia. Left axis deviation. Right bundle branch block. ST elevation. 101 bpm, QTC 464. -Trop X2 negative -lactic acidosis resolved. -Cardiology consult (Dr. Jauregui): RBBB, possibly lateral ST elevations, no need for further cardiac work-up nor testing in this setting. -off of pressors #GI - PEG tube in place - c/w protonix 40 mg IV push - Family prefers J tube to decrease risk of aspiration. Will consider consulting surgery/IR after possible trach -Patient has dark bloody stool again. continue holding Lovenox. CBC was re- ordered. -Hgb/Hct decreased from 11.6/35.3 to 10.6/31.9 today. -GI (Dr. Lehman) was consulted #Heme -Patient has dark bloody stool again. continue holding Lovenox. CBC was re- ordered. -Hgb/Hct decreased from 11.6/35.3 to 10.6/31.9 today. #ID -CXR: progressive infiltrate & fluid on Left with some Right perihilar changes. -blood culture neg X2 (01/23), ucx neg (01/23) -sputum cx: pseudomonas aeruginosa & staph aureus. Pseudomonas sensitive to zosyn. -c/w zosyn 4.5 g IVPB Q6H (01/23) #Renal - BUN/Cr 13.2/0.3 today - UA 1+ Protein with trace ketones -3372.5 mL I's/3200 ml O's/172.5 ml balance - [place] in place #FEN -NS @75 ml/hr -monitor lytes - feeds were stopped 2/2 GI bleed #DVT PPX Patient has dark blood per rectum. continue holding Lovenox #Lines s/p Left chest tube (01/24) [place] (01/23) ETT (01/24), (01/30 s/p cardiac arrest) RUQ peg (patient presented to ED with it) Left IJ triple lumen (01/31) #Dispo -maintain ICU -Family wants FULL code now -son Dr. Mcmahan Eusebio: [phone] Visit type - Emergency Visit Emergency Visit: Yes ED Registration Date: 01/24/20 Care time: The patient presented to the Emergency Department on the above date and was hospitalized for further evaluation of their emergent condition. - New Patient This patient is new to me today: No - Critical Care Critical Care patient: No - Medication Review Med list reviewed for High Risk Meds patients 65 and older: Yes ATTENDING PHYSICIAN STATEMENT I saw and evaluated the patient. I reviewed the resident's note and discussed the case with the resident. I agree with the resident's findings and plan as documented. SUBJECTIVE: OBJECTIVE: ASSESSMENT AND PLAN:
--- NOTE | 2020-02-07 12:54 | PN ---
Progress Note, Physician History of Present Illness: events noted still intubated still critical - Current Medication List Current Medications: Active Medications Acetaminophen (Tylenol Oral Solution -) 650 mg GT Q4H PRN PRN Reason: FEVER Last Admin: 01/31/20 03:14 Dose: 650 mg Documented by: Acetylcysteine (Mucomyst 20 Oral / Inh Use Only*) 200 mg NEB RQ4H AMRITA Last Admin: 02/07/20 11:55 Dose: 200 mg Documented by: Albuterol Sulfate (Ventolin 0.083% Nebulizer Soln -) 1 amp NEB Q6H PRN PRN Reason: SHORT OF BREATH/WHEEZING Last Admin: 02/07/20 11:55 Dose: 1 amp Documented by: Amino Acids (Prosource No Carb Liquid Pkt) 30 ml PO BIDWM AMRITA Last Admin: 02/07/20 09:46 Dose: 30 ml Documented by: Carbidopa/Levodopa (Sinemet 25/250 -) 1 each PO 1600,1900,2200 AMRITA Last Admin: 02/07/20 00:47 Dose: 1 each Documented by: Carbidopa/Levodopa (Sinemet 25/250 -) 1 each PO 0700,1000,1300 AMRITA Last Admin: 02/07/20 09:47 Dose: 1 each Documented by: Chlorhexidine Gluconate (Hibiclens For Decolonization -) 1 applic TP HS AMRITA Last Admin: 02/06/20 21:23 Dose: 1 applic Documented by: Clonazepam (Klonopin -) 2 mg GT TID AMRITA Propofol (Diprivan -) 1,000,000 mcg in 100 mls @ 2.449 mls/hr IVPB TITR AMRITA; Protocol Last Admin: 02/07/20 12:00 Dose: 50 mcg/kg/min, 24.494 mls/hr Documented by: Piperacillin Sod/Tazobactam (Sod 4.5 gm/ Dextrose) 100 mls @ 200 mls/hr IVPB Q6H-IV AMRITA; Protocol Last Admin: 02/07/20 09:48 Dose: 200 mls/hr Documented by: Sodium Chloride (Normal Saline -) 1,000 mls @ 75 mls/hr IV ASDIR AMRITA Last Admin: 02/06/20 07:00 Dose: 75 mls/hr Documented by: Midazolam HCl (Midazolam 100mg/100ml-0.9%Nacl) 100 mg in 100 mls @ 1 mls/hr IVPB TITR AMRITA; Protocol Last Admin: 02/06/20 21:21 Dose: 10 mg/hr, 10 mls/hr Documented by: Methylprednisolone Sodium Succinate (Solu-Medrol -) 40 mg IVPUSH Q8H-IV AMRITA Last Admin: 02/07/20 09:49 Dose: 40 mg Documented by: Pantoprazole Sodium (Protonix Iv) 40 mg IVPUSH DAILY [facility] Last Admin: 02/07/20 09:49 Dose: 40 mg Documented by: Sodium Chloride ([place] Nasal [place] -) 2 spray NS TID PRN PRN Reason: NASAL CONGESTION Tetrahydrozoline HCl (Visine -) 1 drop OU QID PRN PRN Reason: DRY EYES Last Admin: 02/07/20 09:49 Dose: 1 drop Documented by: - Objective Vital Signs: Vital Signs Temperature 97.1 F L 02/07/20 12:00 Pulse Rate 84 02/07/20 12:00 Respiratory Rate 16 02/07/20 12:00 Blood Pressure 101/66 02/07/20 12:00 O2 Sat by Pulse Oximetry (%) 99 02/07/20 11:53 Constitutional: Yes: Well Nourished Eyes: Yes: WNL Neurological: Yes: Tremors, Unresponsive, Other Labs: CBC, BMP 02/07/20 05:30 02/07/20 05:30 INR, PTT INR 1.04 (0.83-1.09) 02/06/20 18:00 Problem List - Problems (1) Parkinson disease Code(s): G20 - PARKINSON'S DISEASE (2) Cardiac arrest Code(s): I46.9 - CARDIAC ARREST, CAUSE UNSPECIFIED Assessment/Plan had a lengthy conversation last night with his son regarding the wishes of the family there still having hopes that the patient is not brain and he might pull-through this I explained to the patient's son who is a doctor thatpatient with no clinical seizure the some myoclonic jerks awaiting the results of the EEG and repeat CAT scan of the head. 1. Start Depakote 500 mg IV every 12 hours. 2. Continue Klonopin the same. 3. Taper the Versed. 4. CAT scan of the head repeat when medically stable
[2020-02-07] MEDS: clonazePAM 2 MG TABLET GT SCH ×3 (14:28→21:41)
[2020-02-07] MEDS ORDERED: FENTANYL NS IVPB 500 MCG/100 ML BAG IVPB ONE ×2 (14:51→20:23)
[2020-02-07 17:01] LABS: HEMATOCRIT 29.7 % (35.4-49); MCH 31.3 pg (25.7-33.7); MCHC 33.7 g/dl (32.0-35.9); MEAN CELL VOLUME 92.9 fl (80-96); MEAN PLT VOLUME 7.7 fl (7.5-11.1); PLATELET COUNT 274 K/MM3 (134-434); RDW 14.8 % (11.9-15.9)
[2020-02-07] MEDS: SODIUM CHLORIDE 1,000 ML IV SCH (17:26)
[2020-02-07] MEDS ORDERED: PROPOFOL 1,000,000 MCG/100 ML VIAL ONE (19:13)
[2020-02-07] MEDS ORDERED: PT OWN MED DRAWER 7, Y5N ONE (19:13)
--- NOTE | 2020-02-07 20:01 | CON.GI ---
Consult Consult Specialty:: Gastroenterology Referred by:: Dr Errol Franco Reason for Consultation:: GI bleeding - History of Present Illness Chief Complaint: Unable to offer complaints History of Present Illness: 64M with 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 being feed via PEG tube presented with altered mental status and respiratory failure requiring intubation, PEEP and chest tube insertion felt to reflect a recurrent aspiration pneumonia. NO obvious CVA on imaging but his mental status has not returned to baseline and his has myoclonic jerks that he did not previously exhibit. I am called to evaluate hematochezia. I refer you to my 12/27/19 consultation for detailed previous history. At that time I discussed the option of converting to a feeding jejunostomy tube while leaving the PEG tube in place for suctioning to prevent repeated aspirations but the family opted against it. He has a normal colonoscopy in [address] Rasmussen. 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 (with 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), Seizure, Other (Supranuclear palsy) Cardio/Vascular: Yes: HTN Pulmonary: Yes: Pneumonia (recurrent aspiration pneumonias) Gastrointestinal: Yes: Gastritis, Other (PEG tube inserted 2017, normal colonoscopy 07/06/13) Renal/: Yes: BPH Musculoskeletal: Yes: Other (functional quadriplegia) - Past Surgical History Past Surgical History: Yes: Colonoscopy, Upper Endoscopy Additional Surgical History: PEG insertion 2017 - Alcohol/Substance Use Hx Alcohol Use: No History of Substance Use: reports: None - Smoking History Smoking history: Never smoked Have you smoked in the past 12 months: No - Social History Usual Living Arrangement: With Spouse ADL: Family Assistance Place of : Other ([place]) History of Recent Travel: No Home Medications - Allergies Allergies/Adverse Reactions: Allergies Allergy/AdvReac Type Severity Reaction Status Date / Time No Known Allergies Allergy Verified 01/24/20 22:44 - Home Medications Home Medications: Ambulatory Orders Doxazosin Mesylate 4 mg PO DAILY 03/09/19 Mirtazapine 30 mg PO DAILY 03/09/19 Multivitamin 1 each GT DAILY #30 tablet 12/29/19 Carbidopa/Levodopa 25/250 [Sinemet 25/250 -] 1 each PO Q3H 01/25/20 Family Medical History Family History: Unable to Obtain Review of Systems Unable to obtain ROS, reason: noncommunicative Physical Exam-GI Vital Signs: Vital Signs Temperature 96.7 F L 02/07/20 14:00 Pulse Rate 94 H 02/07/20 18:00 Respiratory Rate 24 H 02/07/20 18:00 Blood Pressure 132/75 02/07/20 18:00 O2 Sat by Pulse Oximetry (%) 100 02/07/20 16:00 CBC,CMP WBC 10.0 K/mm3 (4.0-10.0) 02/07/20 16:45 RBC 3.20 M/mm3 (4.00-5.60) L 02/07/20 16:45 Hgb 10.0 GM/dL (11.7-16.9) L 02/07/20 16:45 Hct 29.7 % (35.4-49) L 02/07/20 16:45 MCV 92.9 fl (80-96) 02/07/20 16:45 MCH 31.3 pg (25.7-33.7) 02/07/20 16:45 MCHC 33.7 g/dl (32.0-35.9) 02/07/20 16:45 RDW 14.8 % (11.9-15.9) 02/07/20 16:45 Plt Count 274 K/MM3 (134-434) 02/07/20 16:45 MPV 7.7 fl (7.5-11.1) 02/07/20 16:45 Absolute Neuts (auto) 7.4 K/mm3 (1.5-8.0) 02/07/20 05:30 Neutrophils % 89.6 % (42.8-82.8) H 02/07/20 05:30 Neutrophils % (Manual) 84.0 % (42.8-82.8) H D 01/31/20 05:40 Band Neutrophils % 7.0 % 01/31/20 05:40 Lymphocytes % 5.9 % (8-40) L 02/07/20 05:30 Lymphocytes % (Manual) 7.0 % (8-40) L D 01/31/20 05:40 Monocytes % 4.2 % (3.8-10.2) 02/07/20 05:30 Monocytes % (Manual) 2 % (3.8-10.2) L 01/31/20 05:40 Eosinophils % 0.2 % (0-4.5) 02/07/20 05:30 Eosinophils % (Manual) 0.0 % (0-4.5) 01/31/20 05:40 Basophils % 0.1 % (0-2.0) D 02/07/20 05:30 Basophils % (Manual) 0.0 % (0-2.0) 01/31/20 05:40 Myelocytes % (Man) 0 % (0-2) 01/31/20 05:40 Promyelocytes % (Man) 0 % (0-2) 01/31/20 05:40 Blast Cells % (Manual) 0 % (0-0) 01/31/20 05:40 Nucleated RBC % 0 % (0-0) 02/07/20 05:30 Metamyelocytes 0 % (0-2) D 01/31/20 05:40 Hypochromia 0 01/31/20 05:40 Platelet Estimate Normal 02/05/20 05:40 Polychromasia 0 01/31/20 05:40 Poikilocytosis 0 01/31/20 05:40 Anisocytosis 0 01/31/20 05:40 Microcytosis 0 01/31/20 05:40 Macrocytosis 0 01/31/20 05:40 Sodium 142 mmol/L (136-145) 02/07/20 05:30 Potassium 3.9 mmol/L (3.5-5.1) 02/07/20 05:30 Chloride 98 mmol/L (98-107) 02/07/20 05:30 Carbon Dioxide 45 mmol/L (21-32) H 02/07/20 05:30 Anion Gap -1 MMOL/L (8-16) L 02/07/20 05:30 BUN 13.2 mg/dL (7-18) 02/07/20 05:30 Creatinine 0.3 mg/dL (0.55-1.3) L 02/07/20 05:30 Est GFR (CKD-EPI)AfAm 161.45 02/07/20 05:30 Est GFR (CKD-EPI)NonAf 139.30 02/07/20 05:30 POC Glucometer 266 UNITS (80-120) 02/06/20 21:49 Random Glucose 108 mg/dL (74-106) H 02/07/20 05:30 Lactic Acid 1.2 mmol/L (0.4-2.0) 01/27/20 06:17 Calcium 7.4 mg/dL (8.5-10.1) L 02/07/20 05:30 Phosphorus 2.2 mg/dL (2.5-4.9) L 02/07/20 05:30 Magnesium 2.1 mg/dL (1.8-2.4) 02/07/20 05:30 Total Bilirubin 0.6 mg/dL (0.2-1) 02/07/20 05:30 AST 11 U/L (15-37) L 02/07/20 05:30 ALT < 6 U/L (13-61) L 02/07/20 05:30 Alkaline Phosphatase 65 U/L (45-117) 02/07/20 05:30 Creatine Kinase 38 U/L (26-308) 01/25/20 19:00 Troponin I < 0.02 ng/ml (0.00-0.05) 01/25/20 19:00 Total Protein 4.6 g/dl (6.4-8.2) L 02/07/20 05:30 Albumin 1.6 g/dl (3.4-5.0) L 02/07/20 05:30 Prolactin 7.3 ng/ml (4.0-15.2) 02/03/20 06:00 Current Medications Generic Name Dose Route Start Last Admin Trade Name Freq PRN Reason Stop Dose Admin Acetaminophen 650 mg 01/27/20 17:27 01/31/20 03:14 Tylenol Oral Solution - GT 650 mg Q4H PRN Administration FEVER Acetylcysteine 200 mg 01/29/20 16:12 02/07/20 15:44 Mucomyst 20 Oral / Inh Use Only* NEB 200 mg RQ4H AMRITA Administration Albuterol Sulfate 1 amp 02/06/20 07:44 02/07/20 15:44 Ventolin 0.083% Nebulizer Soln - NEB 1 amp Q6H PRN Administration SHORT OF BREATH/WHEEZING Amino Acids 30 ml 02/03/20 08:00 02/07/20 17:20 Prosource No Carb Liquid Pkt PO Not Given BIDWM AMRITA Carbidopa/Levodopa 1 each 01/29/20 16:00 02/07/20 17:20 Sinemet 25/250 - PO 1 each 1600,1900,2200 AMRITA Administration Carbidopa/Levodopa 1 each 01/30/20 07:00 02/07/20 14:30 Sinemet 25/250 - PO 1 each 0700,1000,1300 AMRITA Administration Chlorhexidine Gluconate 1 applic 01/25/20 22:00 02/06/20 21:23 Hibiclens For Decolonization - TP 1 applic HS AMRITA Administration Clonazepam 2 mg 02/07/20 10:45 02/07/20 14:33 Klonopin - GT 2 mg TID AMRITA Administration Propofol 1,000,000 mcg in 100 mls @ 2.449 mls/hr 01/24/20 22:45 02/07/20 15:00 Diprivan - IVPB 50 mcg/kg/min TITR AMRITA 24.494 mls/hr Administration Protocol 5 MCG/KG/MIN Piperacillin Sod/Tazobactam 100 mls @ 200 mls/hr 01/25/20 10:27 02/07/20 14:30 Sod 4.5 gm/ Dextrose IVPB 200 mls/hr Q6H-IV AMRITA Administration Protocol Sodium Chloride 1,000 mls @ 75 mls/hr 01/27/20 17:27 02/07/20 17:26 Normal Saline - IV 75 mls/hr ASDIR AMRITA Administration Midazolam HCl 100 mg in 100 mls @ 1 mls/hr 02/05/20 19:00 02/06/20 21:21 Midazolam 100mg/100ml-0.9%Nacl IVPB 10 mg/hr TITR AMRITA 10 mls/hr Administration Protocol 1 MG/HR Methylprednisolone Sodium Succinate 40 mg 01/31/20 13:00 02/07/20 17:19 Solu-Medrol - IVPUSH 40 mg Q8H-IV AMRITA Administration Pantoprazole Sodium 40 mg 02/02/20 12:45 02/07/20 09:49 Protonix Iv IVPUSH 40 mg DAILY AMRITA Administration Sodium Chloride 2 spray 01/30/20 06:54 Coleman Taylor Nasal Taylor - NS TID PRN NASAL CONGESTION Tetrahydrozoline HCl 1 drop 01/27/20 18:51 02/07/20 09:49 Visine - OU 1 drop QID PRN Administration DRY EYES Valproate Sodium 500 mg 02/07/20 22:00 Depacon Injection - IVPB BID AMRITA Constitutional: Yes: Other (Intubated with myoclonic jerking intermittently, noncommunicative) Eyes: Yes: Conjunctiva Clear HENT: Yes: Normocephalic Neck: Yes: Trachea Midline Cardiovascular: Yes: Tachycardia Respiratory: Yes: Mechanically Ventilated, Rhonchi (coarse rhonchi bilaterally) Gastrointestinal Inspection: Yes: Other (functional LUQ PEG tube) ...Auscultate: Yes: Hypoactive Bowel Sounds ...Palpate: Yes: Soft, Other (nontender) ...Rectal Exam: Yes: Guaiac Positive (3+ prostate, fresh blood. no masses) Edema: No Neurological: Yes: Unresponsive Labs: CBC, BMP 02/07/20 16:45 02/07/20 05:30 INR, PTT INR 1.04 (0.83-1.09) 02/06/20 18:00 Problem List - Problems (1) Hematochezia Code(s): K92.1 - MELENA (2) Aspiration pneumonia due to regurgitated food Code(s): J69.0 - PNEUMONITIS DUE TO INHALATION OF FOOD AND VOMIT (3) Respiratory failure Code(s): J96.90 - RESPIRATORY FAILURE, UNSP, UNSP W HYPOXIA OR HYPERCAPNIA Qualifiers: Chronicity: acute Respiratory failure complication: hypoxia Qualified Code(s): J96.01 - Acute respiratory failure with hypoxia (4) BPH (benign prostatic hyperplasia) Code(s): N40.0 - BENIGN PROSTATIC HYPERPLASIA WITHOUT LOWER URINRY TRACT SYMP (5) Functional quadriplegia Code(s): R53.2 - FUNCTIONAL QUADRIPLEGIA (6) Gastric dysmotility Code(s): K31.89 - OTHER DISEASES OF STOMACH AND DUODENUM (7) Gastrostomy status Code(s): Z93.1 - GASTROSTOMY STATUS (8) Hypertension Code(s): I10 - ESSENTIAL (PRIMARY) HYPERTENSION (9) Parkinson disease Code(s): G20 - PARKINSON'S DISEASE (10) Sepsis Code(s): A41.9 - SEPSIS, UNSPECIFIED ORGANISM Qualifiers: Acute respiratory failure type: with hypoxia Severe sepsis shock status: without septic shock (11) Supranuclear palsy Code(s): G23.1 - PROGRESSIVE SUPRANUCLEAR OPHTHALMOPLEGIA Assessment/Plan IMpression: - Given that aspiration of the PEG tube yields no blood and the intermittent nature of hematochezia I suspect that the bleeding is of ischemic colitis origin suffered during hypotension but he could alternatively be bleeding from diverticulosis, vascular ectasias, stercoral ulceration, internal hemorrhoids and less likely a neoplasm. A postpyloric UGI bleed cannot be absolutely excluded as aspiration failed to yield bile. I discussed the situation with the son at the bedside who referred me to his brother Marj ) who is a physician. We discussed the role of endoscopy in this situation and the risks of anesthesia and endoscopy ( including perforation and worsening of the bleeding) after which we mutually agreed to reserve this for life threatening hemorrhage. The same applies to CTA and IR embolization. Plan: -- Serial CBCs and transfuse prn -- Increase PPI to BID empirically -- Myrtle endoscopic and IR interventions for life threatening hemorrhage and after discussion with updated clinical status. -- If he survives then conversion to a J tube for feeding and preservation of the G tube jacquelyn need to be reconsidered. I also again discussed this with Marj.
[2020-02-07] MEDS: CHLORHEXIDINE GLUCONATE 4% CLEANSER FOR DECOLONIZATION TP SCH (21:41)
[2020-02-07] MEDS: VALPROATE SODIUM 500 MG/5 ML VIAL IVPB SCH (21:41)
[2020-02-07] MEDS: MIDAZOLAM IN 0.9 % SOD.CHLORID 100 MG/100 ML PLAST..BAG IVPB SCH (22:58)
[2020-02-07 23:26] LABS: HEMATOCRIT 28.4 % (35.4-49); HEMOGLOBIN 9.4 GM/dL (11.7-16.9); MCH 30.3 pg (25.7-33.7); MCHC 33.2 g/dl (32.0-35.9); MEAN CELL VOLUME 91.4 fl (80-96); MEAN PLT VOLUME 7.8 fl (7.5-11.1); PLATELET COUNT 296 K/MM3 (134-434); RBC 3.11 M/mm3 (4.00-5.60); RDW 15.1 % (11.9-15.9); WHITE BLOOD COUNT 10.1 K/mm3 (4.0-10.0)
[2020-02-08] MEDS: ACETYLCYSTEINE 20% 200MG/ML 4 ML VIAL *FOR ORAL / INH USE ONLY NEB SCH ×7 (00:09→23:28)
[2020-02-08] MEDS: ALBUTEROL SO4 0.083% IH SOL 2.5 MG/3 ML VIAL.NEB. NEB PRN ×4 (00:10→23:27)
[2020-02-08] MEDS ORDERED: DEXTROSE 5%-WATER 100 ML IVPB ONE ×4 (01:17→22:31)
[2020-02-08] MEDS ORDERED: PIPERACILLIN/TAZOBACTAM 4.5 GM VIAL IVPB ONE ×4 (01:17→22:31)
[2020-02-08] MEDS: methylPREDNISolone NA SUCC 40 MG/1 ML VIAL IVPUSH SCH ×3 (01:36→17:14)
[2020-02-08] MEDS ORDERED: FENTANYL NS IVPB 500 MCG/100 ML BAG IVPB ONE ×4 (02:06→22:30)
[2020-02-08] MEDS: PIPERACILLIN/TAZOB 4.5 GM 4.5 GM in DEXTROSE 5%-WATER 100 ML IVPB SCH ×4 (02:22→22:46)
[2020-02-08 05:20] LABS: ARTERIAL BLD GAS O2 SATURATION 97.9 mmHg (95-98); ARTERIAL BLOOD GAS BASE EXCESS 14.1 mmol/L (-2-2); ARTERIAL BLOOD GAS PO2 109.3 mmHg (80-100); ARTERIAL BLOOD GAS pH 7.415 (7.350-7.450)
[2020-02-08 05:21] LABS: ALLENS TEST POSITIVE
[2020-02-08 05:22] LABS: VENT MODE A/C; VENT RATE 18
[2020-02-08] MEDS ORDERED: PT OWN MED DRAWER 7, Y5N ONE ×2 (06:21→15:24)
[2020-02-08] MEDS: clonazePAM 2 MG TABLET GT SCH ×3 (06:25→22:46)
[2020-02-08] MEDS: CARBIDOPA/LEVODOPA 25/250 TABLET (FP) PO SCH ×6 (06:25→22:46)
[2020-02-08 06:38] LABS: HEMATOCRIT 28.8 % (35.4-49); HEMOGLOBIN 9.6 GM/dL (11.7-16.9); MCH 30.7 pg (25.7-33.7); MCHC 33.2 g/dl (32.0-35.9); MEAN CELL VOLUME 92.3 fl (80-96); PLATELET COUNT 295 K/MM3 (134-434); RBC 3.13 M/mm3 (4.00-5.60); RDW 14.8 % (11.9-15.9); WHITE BLOOD COUNT 10.6 K/mm3 (4.0-10.0)
[2020-02-08 07:11] LABS: ALBUMIN 1.6 g/dl (3.4-5.0); ALK PHOS 63 U/L (45-117); ANION GAP 1 MMOL/L (8-16); BILIRUBIN,TOTAL 0.6 mg/dL (0.2-1); CALCIUM 7.8 mg/dL (8.5-10.1); CHLORIDE 100 mmol/L (98-107); CO2 42 mmol/L (21-32); CREATININE 0.3 mg/dL (0.55-1.3); GLUCOSE,RANDOM 81 mg/dL (74-106); MAGNESIUM 2.1 mg/dL (1.8-2.4); POTASSIUM 3.8 mmol/L (3.5-5.1); SGOT/AST 14 U/L (15-37); SGPT/ALT < 6 U/L (13-61); SODIUM 144 mmol/L (136-145); TOT PROT 4.6 g/dl (6.4-8.2)
[2020-02-08] MEDS: FENTANYL IVPB 500 MCG/100 ML BAG IVPB SCH ×2 (08:00→11:00)
[2020-02-08] MEDS ORDERED: POTASSIUM PHOSPHATE 20 MM in DEXTROSE 5%-WATER - 250 ML IVPB ONE (09:00)
[2020-02-08] MEDS: AMINO ACIDS/PROTEIN HYDROLYS 30 ML LIQUID.PKT PO SCH ×2 (09:45→16:35)
[2020-02-08] MEDS: PANTOPRAZOLE SODIUM 40 MG VIAL IVPUSH SCH ×2 (10:46→22:46)
[2020-02-08] MEDS: VALPROATE SODIUM 500 MG/5 ML VIAL IVPB SCH ×2 (10:46→22:46)
[2020-02-08] MEDS ORDERED: DEXTROSE 5%-NORMAL SALINE 1,000 ML IV SCH (11:00)
--- NOTE | 2020-02-08 11:15 | PN ---
Physical Exam: SUBJECTIVE: Patient seen and examined. Intubated and sedated midazolam and propofol. 1 large bloody Bowel movement overnight. Attempted to wean patient off ventilator again today, so turned off the sedation. Within minutes of shutting off the sedation, patient began to have increased myoclonic jerks, but did not desaturate. Sedation was turned on again. OBJECTIVE: Vital Signs Period Temp Pulse Resp BP Sys/Villegas Pulse Ox Last 24 Hr 96.7 F-98.6 F 74-102 16-25 101-132/61-76 98-100 GENERAL: Intubated and sedated HEENT: NC,AT, pinpoint pupils, edema of lips LUNGS: Breath sounds equal, clear to auscultation bilaterally, no wheezes, no crackles, no accessory muscle use. decreased breath sounds bases b/l HEART: Regular rate and rhythm, S1, S2 without murmur, rub or gallop. ABDOMEN: Soft, nontender, nondistended, normoactive bowel sounds, no guarding, PEG tube in RUQ EXTREMITIES: 2+ pulses, warm, well-perfused, minimal intermittent myoclonic jerks in feet b/l. 1+ edema UE SKIN: Warm, dry, stage III ulcer on L buttock, no erythema, no discharge Neuro: corneal reflex intact, no gag reflex appreciated Laboratory Results - last 24 hr 02/07/20 02/07/20 02/08/20 16:45 22:55 05:00 WBC 10.0 10.1 H RBC 3.20 L 3.11 L Hgb 10.0 L 9.4 L Hct 29.7 L 28.4 L MCV 92.9 91.4 MCH 31.3 30.3 MCHC 33.7 33.2 RDW 14.8 15.1 Plt Count 274 296 MPV 7.7 7.8 Anticoagulation Therapy No Result Required. Puncture Site Right radial Patient Temperature No Result Required. ABG pH 7.415 ABG pCO2 65.30 H ABG pO2 109.3 H ABG HCO3 40.9 H ABG O2 Sat (Measured) 97.9 ABG O2 Content No Result Required. ABG Base Excess 14.1 H Darion Test Positive Patient On Oxygen Yes O2 Delivery Device Vent Oxygen Flow Rate 60% Vent Mode A/c Vent Rate 18 Mechanical Rate Yes PEEP 7.0 Pressure Support Vent 400 Sodium Potassium Chloride Carbon Dioxide Anion Gap BUN Creatinine Est GFR (CKD-EPI)AfAm Est GFR (CKD-EPI)NonAf Random Glucose Calcium Phosphorus Magnesium Total Bilirubin AST ALT Alkaline Phosphatase Total Protein Albumin 02/08/20 02/08/20 06:00 06:00 WBC 10.6 H RBC 3.13 L Hgb 9.6 L Hct 28.8 L MCV 92.3 MCH 30.7 MCHC 33.2 RDW 14.8 Plt Count 295 MPV 8.0 Anticoagulation Therapy Puncture Site Patient Temperature ABG pH ABG pCO2 ABG pO2 ABG HCO3 ABG O2 Sat (Measured) ABG O2 Content ABG Base Excess Darion Test Patient On Oxygen O2 Delivery Device Oxygen Flow Rate Vent Mode Vent Rate Mechanical Rate PEEP Pressure Support Vent Sodium 144 Potassium 3.8 Chloride 100 Carbon Dioxide 42 H Anion Gap 1 L BUN 14.0 Creatinine 0.3 L Est GFR (CKD-EPI)AfAm 161.45 Est GFR (CKD-EPI)NonAf 139.30 Random Glucose 81 Calcium 7.8 L Phosphorus 2.0 L Magnesium 2.1 Total Bilirubin 0.6 AST 14 L ALT < 6 L Alkaline Phosphatase 63 Total Protein 4.6 L Albumin 1.6 L Active Medications Generic Name Dose Route Start Last Admin Trade Name Freq PRN Reason Stop Dose Admin Acetaminophen 650 mg 01/27/20 17:27 01/31/20 03:14 Tylenol Oral Solution - GT 650 mg Q4H PRN Administration FEVER Acetylcysteine 200 mg 01/29/20 16:12 02/08/20 08:30 Mucomyst 20 Oral / Inh Use Only* NEB 200 mg RQ4H AMRITA Administration Albuterol Sulfate 1 amp 02/06/20 07:44 02/08/20 05:05 Ventolin 0.083% Nebulizer Soln - NEB 1 amp Q6H PRN Administration SHORT OF BREATH/WHEEZING Amino Acids 30 ml 02/03/20 08:00 02/08/20 09:45 Prosource No Carb Liquid Pkt PO 30 ml BIDWM AMRITA Administration Carbidopa/Levodopa 1 each 01/29/20 16:00 02/07/20 21:41 Sinemet 25/250 - PO 1 each 1600,1900,2200 AMRITA Administration Carbidopa/Levodopa 1 each 01/30/20 07:00 02/08/20 10:46 Sinemet 25/250 - PO 1 each 0700,1000,1300 AMRITA Administration Chlorhexidine Gluconate 1 applic 01/25/20 22:00 02/07/20 21:41 Hibiclens For Decolonization - TP 1 applic HS AMRITA Administration Clonazepam 2 mg 02/07/20 10:45 02/08/20 06:25 Klonopin - GT 2 mg TID AMRITA Administration Propofol 1,000,000 mcg in 100 mls @ 2.449 mls/hr 01/24/20 22:45 02/07/20 22:58 Diprivan - IVPB 50 mcg/kg/min TITR AMRITA 24.494 mls/hr Administration Protocol 5 MCG/KG/MIN Piperacillin Sod/Tazobactam 100 mls @ 200 mls/hr 01/25/20 10:27 02/08/20 09:45 Sod 4.5 gm/ Dextrose IVPB 200 mls/hr Q6H-IV AMRITA Administration Protocol Midazolam HCl 100 mg in 100 mls @ 1 mls/hr 02/05/20 19:00 02/07/20 22:58 Midazolam 100mg/100ml-0.9%Nacl IVPB 10 mg/hr TITR AMRITA 10 mls/hr Administration Protocol 1 MG/HR Potassium Phosphate 20 mm/ 256.6667 mls @ 64.167 mls/hr 02/08/20 09:00 Dextrose IVPB 02/08/20 12:59 ONCE ONE 20 MM/4 HR Dextrose/Sodium Chloride 1,000 mls @ 75 mls/hr 02/08/20 11:00 D5-Ns - IV ASDIR AMRITA Methylprednisolone Sodium Succinate 40 mg 01/31/20 13:00 02/08/20 10:46 Solu-Medrol - IVPUSH 40 mg Q8H-IV AMRITA Administration Pantoprazole Sodium 40 mg 02/07/20 22:00 02/08/20 10:46 Protonix Iv IVPUSH 40 mg BID AMRITA Administration Sodium Chloride 2 spray 01/30/20 06:54 [place] Q[place]man Nasal [place] - NS TID PRN NASAL CONGESTION Tetrahydrozoline HCl 1 drop 01/27/20 18:51 02/07/20 09:49 Visine - OU 1 drop QID PRN Administration DRY EYES Valproate Sodium 500 mg 02/07/20 22:00 02/08/20 10:46 Depacon Injection - IVPB 500 mg BID AMRITA Administration ASSESSMENT/PLAN: 64 YO M PMH HTN, BPH, Parkinson's disease with Supranuclear palsy (with PEG tube in RUQ). Found to have PNA. Admitted to ICU for Acute hypoxic, hypercapnic respiratory failure 2/2 PNA. #Neuro - Re-intubated 01/30 after cardiac arrest, Intubated and sedated with midazolam 10 mg/h, propofol 50 mcg/kg/min and fentanl 100 mcg/h. - CT head (02/01): Mild chronic microvascular ischemic changes, possible 1.4cm focal infarct in posterior fossa - CT Head (02/02): Previously identified focal attenuation in cerebellum not definitely identified -Parkinson's disease. 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 Bilateral mastoid effusion/mastoiditis & bilateral otitis media. Moderate volume loss. -Bedside EEG ordered #Pulm # Acute hypoxic, hypercapnic respiratory failure 2/2 PNA - S/p chest tube for pleural effusion/infiltrate -CXR: L pulmonary/pleural changes. better aeration of R lung with decreased lung markings. improved R hemithorax -Vent AC: Rate 18, TV 400, FIO2 60%, PEEP 7, Pplat 19. -Attempted to wean patient off ventilator again today, so turned off the sedation. Within minutes of shutting off the sedation, patient began to have increased myoclonic jerks, but did not desaturate. Sedation was turned on again. Will consider trach and consult Dr. Shi. - Mucomyst, Ventolin, Solumedrol 40 Q8H (01/30) -ABG pH 7.415. INCREASED PCO2 65.3, HCO3 40.9, O2 109.3, base excess 14.1 #Cardio #HTN: hypotensive. will hold home medications affecting BP. maintain MAP >65. #ST elevation on EKG EKG: Sinus tachycardia. Left axis deviation. Right bundle branch block. ST elevation. 101 bpm, QTC 464. -Trop X2 negative -lactic acidosis resolved. -Cardiology consult (Dr. Jauregui): RBBB, possibly lateral ST elevations, no need for further cardiac work-up nor testing in this setting. -off of pressors #GI - PEG tube in place - Family prefers J tube to decrease risk of aspiration. Will consider consulting surgery/IR after possible trach -Patient has dark bloody stool again. continue holding Lovenox. -Hgb/Hct decreased from 10/29.7 to 9.6/28.8 today. -GI (Dr. Lehman) consult appreciated. STARTED protonix 40 mg BID IV push. monitor with serial CBCs, transfuse PRN #Heme -Patient has dark bloody stool again. continue holding Lovenox. -Hgb/Hct decreased from 10/29.7 to 9.6/28.8 today. #ID -CXR: L pulmonary/pleural changes. better aeration of R lung with decreased lung markings. improved R hemithorax -blood culture neg X2 (01/23), ucx neg (01/23) -sputum cx: pseudomonas aeruginosa & staph aureus. Pseudomonas sensitive to zosyn. -c/w zosyn 4.5 g IVPB Q6H (01/23) #Renal - BUN/Cr 13.2/0.3 today - UA 1+ Protein with trace ketones -2946 mL I's/3200 ml O's/-254 ml balance - Mensah in place #FEN -switched fluids from NS to D5 NS @75 because patient has not received feeds -monitor lytes. Phos repleted - feeds were stopped 2/2 GI bleed #DVT PPX Patient has dark blood per rectum. continue holding Lovenox #Lines s/p Left chest tube (01/24) mensah (01/23) ETT (01/24), (01/30 s/p cardiac arrest) RUQ peg (patient presented to ED with it) Left IJ triple lumen (01/31). Will change line today #Dispo -maintain ICU -Family wants FULL code now -son Lalitha Kaplan: [phone] Visit type - Emergency Visit Emergency Visit: Yes ED Registration Date: 01/24/20 Care time: The patient presented to the Emergency Department on the above date and was hospitalized for further evaluation of their emergent condition. - New Patient This patient is new to me today: No - Critical Care Critical Care patient: No - Medication Review Med list reviewed for High Risk Meds patients 65 and older: Yes ATTENDING PHYSICIAN STATEMENT I saw and evaluated the patient. I reviewed the resident's note and discussed the case with the resident. I agree with the resident's findings and plan as documented. SUBJECTIVE: OBJECTIVE: ASSESSMENT AND PLAN:
[2020-02-08] MEDS ORDERED: FENTANYL IVPB 500 MCG/100 ML BAG IVPB ONE (11:54)
--- NOTE | 2020-02-08 12:14 | PN ---
Teaching Attending Note Name of Resident: Errol Franco ATTENDING PHYSICIAN STATEMENT I saw and evaluated the patient. I reviewed the resident's note and discussed the case with the resident. I agree with the resident's findings and plan as documented. SUBJECTIVE: Pt seen and examined in the ICU. Intubated, sedated. No pressors. Fio2 60%. Stil l with increased myoclonic activity with brief interruption in sedation. OBJECTIVE: Vital Signs Period Temp Pulse Resp BP Sys/Villegas Pulse Ox Last 24 Hr 96.7 F-98.6 F 74-102 18-25 102-132/61-76 98-100 Intake & Output 02/05/20 02/06/20 02/07/20 02/08/20 23:59 23:59 23:59 23:59 Intake Total 3866 3372.5 2946 1508.7 Output Total 2500 3200 3200 900 Balance 1366 172.5 -254 608.7 Weight 74.843 kg 77.791 kg 78.653 kg Gen: intubated, sedated Heart: RRR Lung: scattered rhonchi Abd: soft, nontender Ext: no edema CBC, BMP 02/08/20 06:00 02/08/20 06:00 Active Medications Acetaminophen (Tylenol Oral Solution -) 650 mg GT Q4H PRN PRN Reason: FEVER Last Admin: 01/31/20 03:14 Dose: 650 mg Documented by: Acetylcysteine (Mucomyst 20 Oral / Inh Use Only*) 200 mg NEB RQ4H AMRITA Last Admin: 02/08/20 08:30 Dose: 200 mg Documented by: Albuterol Sulfate (Ventolin 0.083% Nebulizer Soln -) 1 amp NEB Q6H PRN PRN Reason: SHORT OF BREATH/WHEEZING Last Admin: 02/08/20 05:05 Dose: 1 amp Documented by: Amino Acids (Prosource No Carb Liquid Pkt) 30 ml PO BIDWM AMRITA Last Admin: 02/08/20 09:45 Dose: 30 ml Documented by: Carbidopa/Levodopa (Sinemet 25/250 -) 1 each PO 1600,1900,2200 AMRITA Last Admin: 02/07/20 21:41 Dose: 1 each Documented by: Carbidopa/Levodopa (Sinemet 25/250 -) 1 each PO 0700,1000,1300 AMRITA Last Admin: 02/08/20 10:46 Dose: 1 each Documented by: Chlorhexidine Gluconate (Hibiclens For Decolonization -) 1 applic TP HS [facility] Last Admin: 02/07/20 21:41 Dose: 1 applic Documented by: Clonazepam (Klonopin -) 2 mg GT TID [facility] Last Admin: 02/08/20 06:25 Dose: 2 mg Documented by: Propofol (Diprivan -) 1,000,000 mcg in 100 mls @ 2.449 mls/hr IVPB TITR [facility]; Protocol Last Admin: 02/07/20 22:58 Dose: 50 mcg/kg/min, 24.494 mls/hr Documented by: Piperacillin Sod/Tazobactam (Sod 4.5 gm/ Dextrose) 100 mls @ 200 mls/hr IVPB Q6H-IV [facility]; Protocol Last Admin: 02/08/20 09:45 Dose: 200 mls/hr Documented by: Midazolam HCl (Midazolam 100mg/100ml-0.9%Nacl) 100 mg in 100 mls @ 1 mls/hr IVPB TITR [facility]; Protocol Last Admin: 02/07/20 22:58 Dose: 10 mg/hr, 10 mls/hr Documented by: Potassium Phosphate 20 mm/ (Dextrose) 256.6667 mls @ 64.167 mls/hr IVPB ONCE ONE Stop: 02/08/20 12:59 Dextrose/Sodium Chloride (D5-Ns -) 1,000 mls @ 75 mls/hr IV ASDIR [facility] Methylprednisolone Sodium Succinate (Solu-Medrol -) 40 mg IVPUSH Q8H-IV [facility] Last Admin: 02/08/20 10:46 Dose: 40 mg Documented by: Pantoprazole Sodium (Protonix Iv) 40 mg IVPUSH BID [facility] Last Admin: 02/08/20 10:46 Dose: 40 mg Documented by: Sodium Chloride ([place] Nasal Iselin -) 2 spray NS TID PRN PRN Reason: NASAL CONGESTION Tetrahydrozoline HCl (Visine -) 1 drop OU QID PRN PRN Reason: DRY EYES Last Admin: 02/07/20 09:49 Dose: 1 drop Documented by: Valproate Sodium (Depacon Injection -) 500 mg IVPB BID [facility] Last Admin: 02/08/20 10:46 Dose: 500 mg Documented by: ASSESSMENT AND PLAN: Acute Hypoxic and Hypercapneic Respiratory Failure s/p Cardiopulmonary Arrest Suspect Anoxic Brain Injury Pneumonia suspect Aspiration Sepsis Lactic Acidosis r/o IA Parkinsons Supranuclear Palsy - titrate up klonopin - CT head - continue antibiotics - monitor urine output, creatinine - titrate Fio2, PEEP to keep Spo2 >90% - continue volume assist control - enteral feeds - DVT/GI prophylaxis - continue ICU monitoring - poor overall prognosis, continue discussions regarding goals of care, advanced directives - will need tracheostomy pending family wishes - recommend comfort measures critical care time spent in reviewing chart, evaluating patient and formulating plan 35 min
--- NOTE | 2020-02-08 13:22 | PN ---
Progress Note, Physician Chief Complaint: Acute Hypoxic and Hypercapneic Respiratory Failure Pneumonia suspect Aspiration Sepsis Lactic Acidosis Parkinsons Supranuclear Palsy History of Present Illness: 4 year old non-verbal male with PMH of Parkinson's disease with Supranuclear palsy with PEG tube placed. Last admission at [facility] was in November for Aspiration PNA. Pt unable to communicate and family not present at bedside. As per ER staff, pt was with AMS earlier today, pt is non verbal at baseline but is able to communicate minimally using hand gestures. EMS was called and pt was found to be hypoxic in the 80s on home oxygen of 2L, which improved to 90s after Ambu bagging. In the ER, he was sedated and intubated, septic workup initiated, and admitted to the ICU. In the ER pt again began to desat, CXR showed massive left sided effusion/infiltrate and chest tube was palced with improvement in SpO2. Pt extubated on 01/28/20, re-intubated s/p Cardiac arrest on 01/31/20 Seen by palliative medicine-Family wants everything done Off pressors Going for repeat CT head + myoclonus off sedation and even on increased dosage of Clonazepam Feeds on hold - Current Medication List Current Medications: Active Medications Acetaminophen (Tylenol Oral Solution -) 650 mg GT Q4H PRN PRN Reason: FEVER Last Admin: 01/31/20 03:14 Dose: 650 mg Documented by: Acetylcysteine (Mucomyst 20 Oral / Inh Use Only*) 200 mg NEB RQ4H [facility] Last Admin: 02/08/20 08:30 Dose: 200 mg Documented by: Albuterol Sulfate (Ventolin 0.083% Nebulizer Soln -) 1 amp NEB Q6H PRN PRN Reason: SHORT OF BREATH/WHEEZING Last Admin: 02/08/20 05:05 Dose: 1 amp Documented by: Amino Acids (Prosource No Carb Liquid Pkt) 30 ml PO BIDWM [facility] Last Admin: 02/08/20 09:45 Dose: 30 ml Documented by: Carbidopa/Levodopa (Sinemet 25/250 -) 1 each PO 1600,1900,2200 [facility] Last Admin: 02/07/20 21:41 Dose: 1 each Documented by: Carbidopa/Levodopa (Sinemet 25/250 -) 1 each PO 0700,1000,1300 [facility] Last Admin: 02/08/20 10:46 Dose: 1 each Documented by: Chlorhexidine Gluconate (Hibiclens For Decolonization -) 1 applic TP HS [facility] Last Admin: 02/07/20 21:41 Dose: 1 applic Documented by: Clonazepam (Klonopin -) 2 mg GT TID [facility] Last Admin: 02/08/20 06:25 Dose: 2 mg Documented by: Propofol (Diprivan -) 1,000,000 mcg in 100 mls @ 2.449 mls/hr IVPB TITR [facility]; Protocol Last Admin: 02/07/20 22:58 Dose: 50 mcg/kg/min, 24.494 mls/hr Documented by: Piperacillin Sod/Tazobactam (Sod 4.5 gm/ Dextrose) 100 mls @ 200 mls/hr IVPB Q6H-IV [facility]; Protocol Last Admin: 02/08/20 09:45 Dose: 200 mls/hr Documented by: Midazolam HCl (Midazolam 100mg/100ml-0.9%Nacl) 100 mg in 100 mls @ 1 mls/hr IVPB TITR [facility]; Protocol Last Admin: 02/07/20 22:58 Dose: 10 mg/hr, 10 mls/hr Documented by: Dextrose/Sodium Chloride (D5-Ns -) 1,000 mls @ 75 mls/hr IV ASDIR [facility] Methylprednisolone Sodium Succinate (Solu-Medrol -) 40 mg IVPUSH Q8H-IV [facility] Last Admin: 02/08/20 10:46 Dose: 40 mg Documented by: Pantoprazole Sodium (Protonix Iv) 40 mg IVPUSH BID [facility] Last Admin: 02/08/20 10:46 Dose: 40 mg Documented by: Sodium Chloride ([place] Nasal [place] -) 2 spray NS TID PRN PRN Reason: NASAL CONGESTION Tetrahydrozoline HCl (Visine -) 1 drop OU QID PRN PRN Reason: DRY EYES Last Admin: 02/07/20 09:49 Dose: 1 drop Documented by: Valproate Sodium (Depacon Injection -) 500 mg IVPB BID [facility] Last Admin: 02/08/20 10:46 Dose: 500 mg Documented by: - Objective Vital Signs: Vital Signs Temperature 98.6 F 02/08/20 06:00 Pulse Rate 94 H 02/08/20 10:00 Respiratory Rate 02/08/20 10:00 Blood Pressure 102/65 02/08/20 10:00 O2 Sat by Pulse Oximetry (%) 100 02/08/20 08:41 Constitutional: Yes: Well Nourished, No Distress, Calm Cardiovascular: Yes: Regular Rate and Rhythm Respiratory: Yes: Regular, Mechanically Ventilated, Rhonchi (BLL) Gastrointestinal: Yes: Soft, Hypoactive Bowel Sounds Genitourinary: Yes: Merchant Present Musculoskeletal: Yes: Muscle Weakness Edema: No Peripheral Pulses WNL: Yes Neurological: Yes: Pre-Existing Deficit Labs: CBC, BMP 02/08/20 06:00 02/08/20 06:00 INR, PTT INR 1.04 (0.83-1.09) 02/06/20 18:00 Problem List - Problems (1) Pneumonia Assessment/Plan: -recurrent -ID consult -IV Zosyn -IV medrol -Serial CXR's -Pulmonary on board -Bronchodilators -Mech vent -COVID 19 PCR negative -Cultures: Microbiology 01/27/20 07:00 Sputum - Endotrachea Suction/Ventilator Gram Stain - Final 01/25/20 14:00 Sputum - Endotrachea Suction/Ventilator Gram Stain - Final 01/25/20 14:00 Sputum - Endotrachea Suction/Ventilator Sputum Culture - Fin al Pseudomonas Aeruginosa Staphylococcus Aureus 01/24/20 23:05 Blood - Peripheral Venous Blood Culture - Preliminary NO GROWTH OBTAINED AFTER 48 HOURS, INCUBATION TO CONTINUE FOR 3 DAYS. 01/24/20 23:05 Blood - Peripheral Venous Blood Culture - Preliminary NO GROWTH OBTAINED AFTER 48 HOURS, INCUBATION TO CONTINUE FOR 3 DAYS. 01/24/20 23:15 Urine - Urine - Catheterized Urine Culture - Final NO GROWTH OBTAINED Problems reviewed: Yes Code(s): J18.9 - PNEUMONIA, UNSPECIFIED ORGANISM Qualifiers: Pneumonia type: due to unspecified organism Laterality: bilateral Lung location: unspecified part of lung Qualified Code(s): J18.9 - Pneumonia, unspecified organism (2) Respiratory failure Assessment/Plan: as above -CXR worse-progress opacification of left hemithorax -trach? Consult ENT -S/p chest tube for pleural effusion/infiltrate -Vent AC: Rate 14, TV 400, FIO2 60%, PEEP 5, Pplat 25. -Attempted weaning, patient began to have myoclonus off sedation. -Mucomyst, Ventolin, Solumedrol 40 Q8H Problems reviewed: Yes Code(s): J96.90 - RESPIRATORY FAILURE, UNSP, UNSP W HYPOXIA OR HYPERCAPNIA Qualifiers: Chronicity: acute Respiratory failure complication: hypoxia Qualified Code(s): J96.01 - Acute respiratory failure with hypoxia (3) Functional quadriplegia Problems reviewed: Yes Code(s): R53.2 - FUNCTIONAL QUADRIPLEGIA (4) Parkinson disease Assessment/Plan: -Continue Sinemet Problems reviewed: Yes Code(s): G20 - PARKINSON'S DISEASE (5) Supranuclear palsy Assessment/Plan: -Seen by neurology -CT head (02/01): Mild chronic microvascular ischemic changes, possible 1.4cm focal infarct in posterior fossa -CT Head (02/02): Previously identified focal attenuation in cerebellum not definitely identified Problems reviewed: Yes Code(s): G23.1 - PROGRESSIVE SUPRANUCLEAR OPHTHALMOPLEGIA (6) Cardiac arrest Assessment/Plan: -re-intubated Problems reviewed: Yes Code(s): I46.9 - CARDIAC ARREST, CAUSE UNSPECIFIED (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 -Increased klonopin from 1 mg BID to 2 mg Q8H for myoclonus Lans Santi syndrome -Repeat CT head -Neurology input would take the lead Problems reviewed: Yes Code(s): G25.3 - MYOCLONUS Assessment/Plan See problem list
[2020-02-08] MEDS: PROPOFOL 1,000,000 MCG/100 ML VIAL IVPB SCH ×3 (15:35→22:46)
[2020-02-08] MEDS: MIDAZOLAM IN 0.9 % SOD.CHLORID 100 MG/100 ML PLAST..BAG IVPB SCH (17:00)
--- NOTE | 2020-02-08 18:36 | PN ---
Progress Note, Physician History of Present Illness: critical care note neurology Events noted chart reviewed still very critical Multiple attempts to wean the sedation resulted in myoclonic jerks Patient is on Depakote versed Still vent dependent - Current Medication List Current Medications: Active Medications Acetaminophen (Tylenol Oral Solution -) 650 mg GT Q4H PRN PRN Reason: FEVER Last Admin: 01/31/20 03:14 Dose: 650 mg Documented by: Acetylcysteine (Mucomyst 20 Oral / Inh Use Only*) 200 mg NEB RQ4H [facility] Last Admin: 02/08/20 16:05 Dose: 200 mg Documented by: Albuterol Sulfate (Ventolin 0.083% Nebulizer Soln -) 1 amp NEB Q6H PRN PRN Reason: SHORT OF BREATH/WHEEZING Last Admin: 02/08/20 05:05 Dose: 1 amp Documented by: Amino Acids (Prosource No Carb Liquid Pkt) 30 ml PO BIDWM [facility] Last Admin: 02/08/20 16:35 Dose: 30 ml Documented by: Carbidopa/Levodopa (Sinemet 25/250 -) 1 each PO 1600,1900,2200 [facility] Last Admin: 02/08/20 16:34 Dose: 1 each Documented by: Carbidopa/Levodopa (Sinemet 25/250 -) 1 each PO 0700,1000,1300 [facility] Last Admin: 02/08/20 13:00 Dose: 1 each Documented by: Chlorhexidine Gluconate (Hibiclens For Decolonization -) 1 applic TP HS [facility] Last Admin: 02/07/20 21:41 Dose: 1 applic Documented by: Clonazepam (Klonopin -) 2 mg GT TID [facility] Last Admin: 02/08/20 15:00 Dose: 2 mg Documented by: Propofol (Diprivan -) 1,000,000 mcg in 100 mls @ 2.449 mls/hr IVPB TITR [facility]; Protocol Last Admin: 02/07/20 22:58 Dose: 50 mcg/kg/min, 24.494 mls/hr Documented by: Piperacillin Sod/Tazobactam (Sod 4.5 gm/ Dextrose) 100 mls @ 200 mls/hr IVPB Q6H-IV [facility]; Protocol Last Admin: 02/08/20 16:06 Dose: 200 mls/hr Documented by: Midazolam HCl (Midazolam 100mg/100ml-0.9%Nacl) 100 mg in 100 mls @ 1 mls/hr IVPB TITR [facility]; Protocol Last Admin: 02/07/20 22:58 Dose: 10 mg/hr, 10 mls/hr Documented by: Dextrose/Sodium Chloride (D5-Ns -) 1,000 mls @ 75 mls/hr IV ASDIR [facility] Last Admin: 02/08/20 13:50 Dose: 75 mls/hr Documented by: Methylprednisolone Sodium Succinate (Solu-Medrol -) 40 mg IVPUSH Q8H-IV [facility] Last Admin: 02/08/20 17:14 Dose: 40 mg Documented by: Pantoprazole Sodium (Protonix Iv) 40 mg IVPUSH BID [facility] Last Admin: 02/08/20 10:46 Dose: 40 mg Documented by: Sodium Chloride ([place] Nasal [place] -) 2 spray NS TID PRN PRN Reason: NASAL CONGESTION Tetrahydrozoline HCl (Visine -) 1 drop OU QID PRN PRN Reason: DRY EYES Last Admin: 02/07/20 09:49 Dose: 1 drop Documented by: Valproate Sodium (Depacon Injection -) 500 mg IVPB BID [facility] Last Admin: 02/08/20 10:46 Dose: 500 mg Documented by: - Objective Vital Signs: Vital Signs Temperature 98.6 F 02/08/20 06:00 Pulse Rate 71 02/08/20 17:32 Respiratory Rate 20 02/08/20 17:32 Blood Pressure 94/54 L 02/08/20 17:32 O2 Sat by Pulse Oximetry (%) 100 02/08/20 17:32 Constitutional: Yes: Well Nourished Eyes: Yes: WNL Neurological: Yes: Other (intubatedmild jerky movements in the legsno gaze deviation bilaterally pinpoint pupil bilateral positive corneal decreased tone all over) Labs: CBC, BMP 02/08/20 06:00 02/08/20 06:00 INR, PTT INR 1.04 (0.83-1.09) 02/06/20 18:00 Problem List - Problems (1) Parkinson disease Code(s): G20 - PARKINSON'S DISEASE (2) Cardiac arrest Code(s): I46.9 - CARDIAC ARREST, CAUSE UNSPECIFIED Assessment/Plan cAT scan is not consistent with theanoxic brain damage. Await the EEG. Continue the Depakote. Continue the Klonopin
[2020-02-08] MEDS: CHLORHEXIDINE GLUCONATE 4% CLEANSER FOR DECOLONIZATION TP SCH (22:46)
[2020-02-09] MEDS ORDERED: LACTATED RINGERS SOLUTION 1000 ML INFUS.BAG IV ONE (03:11)
[2020-02-09] MEDS ORDERED: DEXTROSE 5%-WATER 100 ML IVPB ONE ×4 (04:14→20:15)
[2020-02-09] MEDS ORDERED: PIPERACILLIN/TAZOBACTAM 4.5 GM VIAL IVPB ONE ×4 (04:14→20:15)
[2020-02-09] MEDS: ALBUTEROL SO4 0.083% IH SOL 2.5 MG/3 ML VIAL.NEB. NEB PRN ×6 (04:20→23:57)
[2020-02-09] MEDS: ACETYLCYSTEINE 20% 200MG/ML 4 ML VIAL *FOR ORAL / INH USE ONLY NEB SCH ×6 (04:20→23:57)
[2020-02-09] MEDS ORDERED: FENTANYL IVPB 500 MCG/100 ML BAG IVPB ONE (04:22)
[2020-02-09] MEDS: methylPREDNISolone NA SUCC 40 MG/1 ML VIAL IVPUSH SCH ×3 (04:26→17:35)
[2020-02-09] MEDS: PIPERACILLIN/TAZOB 4.5 GM 4.5 GM in DEXTROSE 5%-WATER 100 ML IVPB SCH ×4 (04:26→20:43)
[2020-02-09 06:20] LABS: ARTERIAL BLD GAS O2 SATURATION 98.9 mmHg (95-98); ARTERIAL BLOOD GAS BASE EXCESS 11.7 mmol/L (-2-2); ARTERIAL BLOOD GAS PO2 143.7 mmHg (80-100); ARTERIAL BLOOD GAS pH 7.476 (7.350-7.450)
[2020-02-09 06:21] LABS: ALLENS TEST POSITIVE
[2020-02-09 06:22] LABS: VENT MODE A/C
[2020-02-09 06:23] LABS: VENT RATE 18
[2020-02-09] MEDS: FENTANYL IVPB 500 MCG/100 ML BAG IVPB SCH ×2 (06:53→20:42)
[2020-02-09] MEDS: clonazePAM 2 MG TABLET GT SCH ×3 (06:53→21:11)
[2020-02-09] MEDS: CARBIDOPA/LEVODOPA 25/250 TABLET (FP) PO SCH ×6 (06:53→21:16)
[2020-02-09 07:30] LABS: BASO % 0.1 % (0-2.0); EOS % 0.6 % (0-4.5); HEMATOCRIT 21.9 % (35.4-49); HEMOGLOBIN 7.2 GM/dL (11.7-16.9); LYMPH % 15.1 % (8-40); MCH 30.4 pg (25.7-33.7); MCHC 32.9 g/dl (32.0-35.9); MEAN CELL VOLUME 92.5 fl (80-96); MEAN PLT VOLUME 8.4 fl (7.5-11.1); MONO % 5.6 % (3.8-10.2); NEUT % 78.6 % (42.8-82.8); PLATELET COUNT 249 K/MM3 (134-434); RBC 2.37 M/mm3 (4.00-5.60); RDW 15.3 % (11.9-15.9); WHITE BLOOD COUNT 5.6 K/mm3 (4.0-10.0)
[2020-02-09 08:04] LABS: ALBUMIN 1.3 g/dl (3.4-5.0); ALK PHOS 50 U/L (45-117); ANION GAP 1 MMOL/L (8-16); BILIRUBIN,TOTAL 0.6 mg/dL (0.2-1); CALCIUM 7.7 mg/dL (8.5-10.1); CHLORIDE 102 mmol/L (98-107); CO2 40 mmol/L (21-32); CREATININE 0.3 mg/dL (0.55-1.3); GLUCOSE,RANDOM 70 mg/dL (74-106); PHOSPHOROUS 1.9 mg/dL (2.5-4.9); POTASSIUM 3.6 mmol/L (3.5-5.1); SGOT/AST 10 U/L (15-37); SGPT/ALT < 6 U/L (13-61); SODIUM 143 mmol/L (136-145); TOT PROT 3.8 g/dl (6.4-8.2)
[2020-02-09] MEDS: TETRAHYDROZOLINE HCL EYE DROPS OU PRN (08:34)
[2020-02-09] MEDS: AMINO ACIDS/PROTEIN HYDROLYS 30 ML LIQUID.PKT PO SCH ×2 (08:35→17:35)
[2020-02-09] MEDS: DEXTROSE 5%-NORMAL SALINE 1,000 ML IV SCH ×2 (09:00→20:45)
[2020-02-09 09:22] LABS: BLOOD UREA NITROGEN 14.7 mg/dL (7-18)
[2020-02-09] MEDS: PANTOPRAZOLE SODIUM 40 MG VIAL IVPUSH SCH ×2 (10:00→21:11)
[2020-02-09] MEDS: VALPROATE SODIUM 500 MG/5 ML VIAL IVPB SCH ×2 (10:00→21:11)
[2020-02-09] MEDS ORDERED: POTASSIUM PHOSPHATE 20 MM in DEXTROSE 5%-WATER - 250 ML IVPB ONE (11:00)
--- NOTE | 2020-02-09 11:05 | PN ---
Progress Note, Physician Chief Complaint: Acute Hypoxic and Hypercapneic Respiratory Failure Pneumonia suspect Aspiration Sepsis Lactic Acidosis Parkinsons Supranuclear Palsy History of Present Illness: 4 year old non-verbal male with PMH of Parkinson's disease with Supranuclear palsy with PEG tube placed. Last admission at [facility] was in November for Aspiration PNA. Pt unable to communicate and family not present at bedside. As per ER staff, pt was with AMS earlier today, pt is non verbal at baseline but is able to communicate minimally using hand gestures. EMS was called and pt was found to be hypoxic in the 80s on home oxygen of 2L, which improved to 90s after Ambu bagging. In the ER, he was sedated and intubated, septic workup initiated, and admitted to the ICU. In the ER pt again began to desat, CXR showed massive left sided effusion/infiltrate and chest tube was palced with improvement in SpO2. Pt extubated on 01/28/20, re-intubated s/p Cardiac arrest on 01/31/20 Seen by palliative medicine-Family wants everything done Off pressors + myoclonus off sedation and even on increased dosage of Clonazepam Feeds on hold CT head-not consistent with anoxic brain damage. Awaiting EEG Revaluated by neurology last evening - Current Medication List Current Medications: Active Medications Acetaminophen (Tylenol Oral Solution -) 650 mg GT Q4H PRN PRN Reason: FEVER Last Admin: 01/31/20 03:14 Dose: 650 mg Documented by: Acetylcysteine (Mucomyst 20 Oral / Inh Use Only*) 200 mg NEB RQ4H [facility] Last Admin: 02/09/20 08:20 Dose: 200 mg Documented by: Albuterol Sulfate (Ventolin 0.083% Nebulizer Soln -) 1 amp NEB Q4H PRN PRN Reason: SHORT OF BREATH/WHEEZING Last Admin: 02/09/20 08:20 Dose: 1 amp Documented by: Amino Acids (Prosource No Carb Liquid Pkt) 30 ml PO BIDWM [facility] Last Admin: 02/09/20 08:35 Dose: 30 ml Documented by: Carbidopa/Levodopa (Sinemet 25/250 -) 1 each PO 1600,1900,2200 [facility] Last Admin: 02/08/20 22:46 Dose: 1 each Documented by: Carbidopa/Levodopa (Sinemet 25/250 -) 1 each PO 0700,1000,1300 [facility] Last Admin: 02/09/20 06:53 Dose: 1 each Documented by: Chlorhexidine Gluconate (Hibiclens For Decolonization -) 1 applic TP HS [facility] Last Admin: 02/08/20 22:46 Dose: 1 applic Documented by: Clonazepam (Klonopin -) 2 mg GT TID [facility] Last Admin: 02/09/20 06:53 Dose: 2 mg Documented by: Propofol (Diprivan -) 1,000,000 mcg in 100 mls @ 2.449 mls/hr IVPB TITR [facility]; Protocol Last Admin: 02/08/20 22:46 Dose: 50 mcg/kg/min, 24.494 mls/hr Documented by: Piperacillin Sod/Tazobactam (Sod 4.5 gm/ Dextrose) 100 mls @ 200 mls/hr IVPB Q6H-IV [facility]; Protocol Last Admin: 02/09/20 08:16 Dose: 200 mls/hr Documented by: Midazolam HCl (Midazolam 100mg/100ml-0.9%Nacl) 100 mg in 100 mls @ 1 mls/hr IVPB TITR [facility]; Protocol Last Admin: 02/08/20 17:00 Dose: 10 mg/hr, 10 mls/hr Documented by: Fentanyl (Sublimaze Ivpb) 500 mcg in 100 mls @ 1 mls/hr IVPB TITR [facility] Last Admin: 02/09/20 06:53 Dose: 100 mcg/hr, 20 mls/hr Documented by: Potassium Phosphate 20 mm/ (Dextrose) 256.6667 mls @ 64.167 mls/hr IVPB ONCE ONE Stop: 02/09/20 14:59 Dextrose/Sodium Chloride (D5-Ns -) 1,000 mls @ 100 mls/hr IV ASDIR [facility] Methylprednisolone Sodium Succinate (Solu-Medrol -) 40 mg IVPUSH Q8H-IV [facility] Last Admin: 02/09/20 09:21 Dose: 40 mg Documented by: Pantoprazole Sodium (Protonix Iv) 40 mg IVPUSH BID [facility] Last Admin: 02/08/20 22:46 Dose: 40 mg Documented by: Sodium Chloride ([place] Nasal [place] -) 2 spray NS TID PRN PRN Reason: NASAL CONGESTION Tetrahydrozoline HCl (Visine -) 1 drop OU QID PRN PRN Reason: DRY EYES Last Admin: 02/09/20 08:34 Dose: 1 drop Documented by: Valproate Sodium (Depacon Injection -) 500 mg IVPB BID [facility] Last Admin: 02/08/20 22:46 Dose: 500 mg Documented by: - Objective Vital Signs: Vital Signs Temperature 98.8 F 02/09/20 10:00 Pulse Rate 68 02/09/20 10:00 Respiratory Rate 18 02/09/20 10:00 Blood Pressure 99/54 L 02/09/20 10:00 O2 Sat by Pulse Oximetry (%) 100 02/09/20 08:20 Labs: CBC, BMP 02/09/20 05:15 02/09/20 05:15 INR, PTT INR 1.04 (0.83-1.09) 02/06/20 18:00 Problem List - Problems (1) Pneumonia Assessment/Plan: -recurrent -ID consult -IV Zosyn -IV medrol -Serial CXR's -Pulmonary on board -Bronchodilators -Mech vent -COVID 19 PCR negative -Cultures: Microbiology 01/27/20 07:00 Sputum - Endotrachea Suction/Ventilator Gram Stain - Final 01/25/20 14:00 Sputum - Endotrachea Suction/Ventilator Gram Stain - Final 01/25/20 14:00 Sputum - Endotrachea Suction/Ventilator Sputum Culture - Final Pseudomonas Aeruginosa Staphylococcus Aureus 01/24/20 23:05 Blood - Peripheral Venous Blood Culture - Preliminary NO GROWTH OBTAINED AFTER 48 HOURS, INCUBATION TO CONTINUE FOR 3 DAYS. 01/24/20 23:05 Blood - Peripheral Venous Blood Culture - Preliminary NO GROWTH OBTAINED AFTER 48 HOURS, INCUBATION TO CONTINUE FOR 3 DAYS. 01/24/20 23:15 Urine - Urine - Catheterized Urine Culture - Final NO GROWTH OBTAINED Problems reviewed: Yes Code(s): J18.9 - PNEUMONIA, UNSPECIFIED ORGANISM Qualifiers: Qualified Code(s): J18.9 - Pneumonia, unspecified organism (2) Respiratory failure Assessment/Plan: as above -CXR worse-progress opacification of left hemithorax -trach? Consult ENT -S/p chest tube for pleural effusion/infiltrate -Vent AC: Rate 14, TV 400, FIO2 60%, PEEP 5, Pplat 25. -Attempted weaning, patient began to have myoclonus off sedation. -Mucomyst, Ventolin, Solumedrol 40 Q8H Problems reviewed: Yes Code(s): J96.90 - RESPIRATORY FAILURE, UNSP, UNSP W HYPOXIA OR HYPERCAPNIA Qualifiers: Qualified Code(s): J96.01 - Acute respiratory failure with hypoxia (3) Functional quadriplegia Problems reviewed: Yes Code(s): R53.2 - FUNCTIONAL QUADRIPLEGIA (4) Parkinson disease Assessment/Plan: -Continue Sinemet Problems reviewed: Yes Code(s): G20 - PARKINSON'S DISEASE (5) Supranuclear palsy Assessment/Plan: -Seen by neurology -CT head (02/01): Mild chronic microvascular ischemic changes, possible 1.4cm focal infarct in posterior fossa -CT Head (02/02): Previously identified focal attenuation in cerebellum not definitely identified Problems reviewed: Yes Code(s): G23.1 - PROGRESSIVE SUPRANUCLEAR OPHTHALMOPLEGIA (6) Cardiac arrest Assessment/Plan: -re-intubated Problems reviewed: Yes Code(s): I46.9 - CARDIAC ARREST, CAUSE UNSPECIFIED (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 -Increased klonopin from 1 mg BID to 2 mg Q8H for myoclonus Lans Santi syndrome -Repeat CT head shows no change, no anoxic brain injury -Await EEG -Neurology input would take the lead Problems reviewed: Yes Code(s): G25.3 - MYOCLONUS Assessment/Plan See problem list
--- NOTE | 2020-02-09 11:08 | PN ---
Physical Exam: SUBJECTIVE: Patient seen and examined. MAP dropped to 40s, which improved after a 500 mL bolus of LR. Hypothermic to 95 F, so bear-hugger was applied for thermoregulation. Patient had one dark bloody stool and green urine. OBJECTIVE: Vital Signs Period Temp Pulse Resp BP Sys/Villegas Pulse Ox Last 24 Hr 95.6 F-99.3 F 63-81 17-20 76-116/33-67 100-100 GENERAL: Intubated and sedated HEENT: NC,AT, pinpoint pupils, edema of lips LUNGS: Breath sounds equal, clear to auscultation bilaterally, no wheezes, no crackles, no accessory muscle use. decreased breath sounds bases b/l HEART: Regular rate and rhythm, S1, S2 without murmur, rub or gallop. ABDOMEN: Soft, nontender, nondistended, normoactive bowel sounds, no guarding, PEG tube in RUQ EXTREMITIES: 2+ pulses, warm, well-perfused, minimal intermittent myoclonic jerks in feet b/l. 1+ edema UE SKIN: Warm, dry, stage III ulcer on L buttock, no erythema, no discharge Neuro: no gag reflex appreciated Laboratory Results - last 24 hr 02/06/20 02/09/20 02/09/20 18:00 05:15 05:15 WBC 5.6 RBC 2.37 L Hgb 7.2 L Hct 21.9 L D MCV 92.5 MCH 30.4 MCHC 32.9 RDW 15.3 Plt Count 249 MPV 8.4 Absolute Neuts (auto) 4.4 Neutrophils % 78.6 Lymphocytes % 15.1 D Monocytes % 5.6 Eosinophils % 0.6 D Basophils % 0.1 Nucleated RBC % 0 Anticoagulation Therapy Puncture Site Patient Temperature ABG pH ABG pCO2 ABG pO2 ABG HCO3 ABG O2 Sat (Measured) ABG O2 Content ABG Base Excess Darion Test Patient On Oxygen O2 Delivery Device Oxygen Flow Rate Vent Mode Vent Rate Mechanical Rate PEEP Pressure Support Vent Sodium 143 Potassium 3.6 Chloride 102 Carbon Dioxide 40 H Anion Gap 1 L BUN 14.7 Creatinine 0.3 L Est GFR (CKD-EPI)AfAm 161.45 Est GFR (CKD-EPI)NonAf 139.30 Random Glucose 70 L Calcium 7.7 L Phosphorus 1.9 L Magnesium 2.0 Total Bilirubin 0.6 AST 10 L ALT < 6 L Alkaline Phosphatase 50 Total Protein 3.8 L Albumin 1.3 L Blood Type A NEGATIVE Antibody Screen Negative Crossmatch See Detail 02/09/20 06:00 WBC RBC Hgb Hct MCV MCH MCHC RDW Plt Count MPV Absolute Neuts (auto) Neutrophils % Lymphocytes % Monocytes % Eosinophils % Basophils % Nucleated RBC % Anticoagulation Therapy No Result Required. Puncture Site Left radial Patient Temperature No Result Required. ABG pH 7.476 H ABG pCO2 50.60 H ABG pO2 143.7 H ABG HCO3 36.5 H ABG O2 Sat (Measured) 98.9 H ABG O2 Content No Result Required. ABG Base Excess 11.7 H Darion Test Positive Patient On Oxygen Yes O2 Delivery Device Vent Oxygen Flow Rate No Result Required. Vent Mode A/c Vent Rate 18 Mechanical Rate A/c PEEP 7.0 Pressure Support Vent 400 Sodium Potassium Chloride Carbon Dioxide Anion Gap BUN Creatinine Est GFR (CKD-EPI)AfAm Est GFR (CKD-EPI)NonAf Random Glucose Calcium Phosphorus Magnesium Total Bilirubin AST ALT Alkaline Phosphatase Total Protein Albumin Blood Type Antibody Screen Crossmatch Active Medications Generic Name Dose Route Start Last Admin Trade Name Freq PRN Reason Stop Dose Admin Acetaminophen 650 mg 01/27/20 17:27 01/31/20 03:14 Tylenol Oral Solution - GT 650 mg Q4H PRN Administration FEVER Acetylcysteine 200 mg 01/29/20 16:12 02/09/20 08:20 Mucomyst 20 Oral / Inh Use Only* NEB 200 mg RQ4H [facility] Administration Albuterol Sulfate 1 amp 02/09/20 06:11 02/09/20 08:20 Ventolin 0.083% Nebulizer Soln - NEB 1 amp Q4H PRN Administration SHORT OF BREATH/WHEEZING Amino Acids 30 ml 02/03/20 08:00 02/09/20 08:35 Prosource No Carb Liquid Pkt PO 30 ml BIDWM [facility] Administration Carbidopa/Levodopa 1 each 01/29/20 16:00 02/08/20 22:46 Sinemet 25/250 - PO 1 each 1600,1900,2200 [facility] Administration Carbidopa/Levodopa 1 each 01/30/20 07:00 02/09/20 06:53 Sinemet 25/250 - PO 1 each 0700,1000,1300 [facility] Administration Chlorhexidine Gluconate 1 applic 01/25/20 22:00 02/08/20 22:46 Hibiclens For Decolonization - TP 1 applic HS [facility] Administration Clonazepam 2 mg 02/07/20 10:45 02/09/20 06:53 Klonopin - GT 2 mg TID [facility] Administration Propofol 1,000,000 mcg in 100 mls @ 2.449 mls/hr 01/24/20 22:45 02/08/20 22:46 Diprivan - IVPB 50 mcg/kg/min TITR [facility] 24.494 mls/hr Administration Protocol 5 MCG/KG/MIN Piperacillin Sod/Tazobactam 100 mls @ 200 mls/hr 01/25/20 10:27 02/09/20 08:16 Sod 4.5 gm/ Dextrose IVPB 200 mls/hr Q6H-IV [facility] Administration Protocol Midazolam HCl 100 mg in 100 mls @ 1 mls/hr 02/05/20 19:00 02/08/20 17:00 Midazolam 100mg/100ml-0.9%Nacl IVPB 10 mg/hr TITR [facility] 10 mls/hr Administration Protocol 1 MG/HR Fentanyl 500 mcg in 100 mls @ 1 mls/hr 02/09/20 04:30 02/09/20 06:53 Sublimaze Ivpb IVPB 100 mcg/hr TITR [facility] 20 mls/hr Administration 5 MCG/HR Potassium Phosphate 20 mm/ 256.6667 mls @ 64.167 mls/hr 02/09/20 11:00 Dextrose IVPB 02/09/20 14:59 ONCE ONE 20 MM/4 HR Dextrose/Sodium Chloride 1,000 mls @ 100 mls/hr 02/09/20 08:58 D5-Ns - IV ASDIR [facility] Methylprednisolone Sodium Succinate 40 mg 01/31/20 13:00 02/09/20 09:21 Solu-Medrol - IVPUSH 40 mg Q8H-IV [facility] Administration Pantoprazole Sodium 40 mg 02/07/20 22:00 02/08/20 22:46 Protonix Iv IVPUSH 40 mg BID [facility] Administration Sodium Chloride 2 spray 01/30/20 06:54 [place] Nasal [place] - NS TID PRN NASAL CONGESTION Tetrahydrozoline HCl 1 drop 01/27/20 18:51 02/09/20 08:34 Visine - OU 1 drop QID PRN Administration DRY EYES Valproate Sodium 500 mg 02/07/20 22:00 02/08/20 22:46 Depacon Injection - IVPB 500 mg BID [facility] Administration ASSESSMENT/PLAN: 64 YO M PMH HTN, BPH, Parkinson's disease with Supranuclear palsy (with PEG tube in RUQ). Found to have PNA. Admitted to ICU for Acute hypoxic, hypercapnic respiratory failure 2/2 PNA. #Neuro - Re-intubated 01/30 after cardiac arrest, Intubated and sedated with midazolam 10 mg/h, propofol 50 mcg/kg/min and fentanl 100 mcg/h. - CT head (02/01): Mild chronic microvascular ischemic changes, possible 1.4cm focal infarct in posterior fossa - CT Head (02/02): Previously identified focal attenuation in cerebellum not definitely identified -Parkinson's disease. 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 Bilateral mastoid effusion/mastoiditis & bilateral otitis media. Moderate volume loss. -Bedside EEG will be performed today #Pulm # Acute hypoxic, hypercapnic respiratory failure 2/2 PNA - S/p chest tube for pleural effusion/infiltrate -CXR: Left pulmonary & pleural changes have DIMINISHED slightly. There is still a dense Left base compatible with atelectasis or infiltrate with fluid. INCREASED markings at Right base. mediastinum is not widened. -Vent AC: Rate 18, TV 400, FIO2 60%, PEEP 7, Pplat 19. -Patient already had myoclonic jerks under sedation. Did not attempt to turn off sedation today. Will consider trach and consult Dr. Shi. - Mucomyst, Ventolin, Solumedrol 40 Q8H (01/30) -ABG INCREASED pH 7.476, PCO2 50.6, HCO3 36.5, O2 143.7, base excess 11.1 #Cardio #HTN: hypotensive. will hold home medications affecting BP. maintain MAP >65. #ST elevation on EKG EKG: Sinus tachycardia. Left axis deviation. Right bundle branch block. ST elevation. 101 bpm, QTC 464. -Trop X2 negative -lactic acidosis resolved. -Cardiology consult (Dr. Jauregui): RBBB, possibly lateral ST elevations, no need for further cardiac work-up nor testing in this setting. -off of pressors #GI - PEG tube in place - Family prefers J tube to decrease risk of aspiration. Will consider consulting surgery/IR after possible trach -Patient has dark bloody stool again. continue holding Lovenox. -Hgb/Hct decreased from 10/29.7 to 9.6/28.8 today. -continue with protonix 40 mg BID IV push. monitor with serial CBCs, transfuse PRN #Heme -Patient has dark bloody stool again. continue holding Lovenox. -Hgb/Hct decreased from 9.6/28.8 to 7.2/21.9 today. Spoke to son for consent for blood transfusion. 1 unit PRBC ordered #ID -CXR: L pulmonary/pleural changes. better aeration of R lung with decreased lung markings. improved R hemithorax -blood culture neg X2 (01/23), ucx neg (01/23) -sputum cx: pseudomonas aeruginosa & staph aureus. Pseudomonas sensitive to zosyn. -c/w zosyn 4.5 g IVPB Q6H (01/23) #Renal - BUN/Cr 14.7/0.3 today - UA 1+ Protein with trace ketones -3210.7 mL I's/1600 ml O's/ 1610.7 ml balance - [place] in place #FEN -increased D5 NS to 100 ml/hr given glucose is 70 and not receiving feeds -monitor lytes. phos repleted - feeds stopped 2/2 GI bleed #DVT PPX Patient has dark blood in stool. continue holding Lovenox #Lines s/p Left chest tube (01/24) [place] (01/23) ETT (01/24), (01/30 s/p cardiac arrest) RUQ peg (patient presented to ED with it) Left IJ triple lumen (01/31). Will change line today #Dispo -maintain ICU -Family wants FULL code now -son Marj Kaplan: [phone] Visit type - Emergency Visit Emergency Visit: Yes ED Registration Date: 01/24/20 Care time: The patient presented to the Emergency Department on the above date and was hospitalized for further evaluation of their emergent condition. - New Patient This patient is new to me today: No - Critical Care Critical Care patient: No - Medication Review Med list reviewed for High Risk Meds patients 65 and older: Yes ATTENDING PHYSICIAN STATEMENT I saw and evaluated the patient. I reviewed the resident's note and discussed the case with the resident. I agree with the resident's findings and plan as documented. SUBJECTIVE: OBJECTIVE: ASSESSMENT AND PLAN:
--- NOTE | 2020-02-09 11:47 | PN ---
Teaching Attending Note Name of Resident: Errol Franco ATTENDING PHYSICIAN STATEMENT I saw and evaluated the patient. I reviewed the resident's note and discussed the case with the resident. I agree with the resident's findings and plan as documented. SUBJECTIVE: Pt seen and examined in the ICU. Intubated, sedated. No pressors. Fio2 60%. Stil l with increased myoclonic activity even with brief interruption in sedation. Taking spontaneous breaths. CT head unremarkable. OBJECTIVE: Vital Signs Period Temp Pulse Resp BP Sys/Villegas Pulse Ox Last 24 Hr 95.6 F-99.3 F 63-81 - 76-116/33-67 100-100 Intake & Output 02/06/20 02/07/20 02/08/20 02/09/20 23:59 23:59 23:59 23:59 Intake Total 3372.5 2946 3210.7 2334.2 Output Total 3200 3200 1600 500 Balance 172.5 -254 1610.7 1834.2 Weight 77.791 kg 78.653 kg 74.253 kg Gen: intubated, sedated Heart: RRR Lung: scattered rhonchi Abd: soft, nontender Ext: no edema CBC, BMP 02/09/20 05:15 02/09/20 05:15 Active Medications Acetaminophen (Tylenol Oral Solution -) 650 mg GT Q4H PRN PRN Reason: FEVER Last Admin: 01/31/20 03:14 Dose: 650 mg Documented by: Acetylcysteine (Mucomyst 20 Oral / Inh Use Only*) 200 mg NEB RQ4H [facility] Last Admin: 02/09/20 08:20 Dose: 200 mg Documented by: Albuterol Sulfate (Ventolin 0.083% Nebulizer Soln -) 1 amp NEB Q4H PRN PRN Reason: SHORT OF BREATH/WHEEZING Last Admin: 02/09/20 08:20 Dose: 1 amp Documented by: Amino Acids (Prosource No Carb Liquid Pkt) 30 ml PO BIDWM [facility] Last Admin: 02/09/20 08:35 Dose: 30 ml Documented by: Carbidopa/Levodopa (Sinemet 25/250 -) 1 each PO 1600,1900,2200 [facility] Last Admin: 02/08/20 22:46 Dose: 1 each Documented by: Carbidopa/Levodopa (Sinemet 25/250 -) 1 each PO 0700,1000,1300 [facility] Last Admin: 02/09/20 10:00 Dose: 1 each Documented by: Chlorhexidine Gluconate (Hibiclens For Decolonization -) 1 applic TP HS [facility] Last Admin: 02/08/20 22:46 Dose: 1 applic Documented by: Clonazepam (Klonopin -) 2 mg GT TID [facility] Last Admin: 02/09/20 06:53 Dose: 2 mg Documented by: Propofol (Diprivan -) 1,000,000 mcg in 100 mls @ 2.449 mls/hr IVPB TITR [facility]; Protocol Last Admin: 02/08/20 22:46 Dose: 50 mcg/kg/min, 24.494 mls/hr Documented by: Piperacillin Sod/Tazobactam (Sod 4.5 gm/ Dextrose) 100 mls @ 200 mls/hr IVPB Q6H-IV [facility]; Protocol Last Admin: 02/09/20 08:16 Dose: 200 mls/hr Documented by: Midazolam HCl (Midazolam 100mg/100ml-0.9%Nacl) 100 mg in 100 mls @ 1 mls/hr IVPB TITR [facility]; Protocol Last Admin: 02/08/20 17:00 Dose: 10 mg/hr, 10 mls/hr Documented by: Fentanyl (Sublimaze Ivpb) 500 mcg in 100 mls @ 1 mls/hr IVPB TITR [facility] Last Admin: 02/09/20 06:53 Dose: 100 mcg/hr, 20 mls/hr Documented by: Potassium Phosphate 20 mm/ (Dextrose) 256.6667 mls @ 64.167 mls/hr IVPB ONCE ONE Stop: 02/09/20 14:59 Last Admin: 02/09/20 11:28 Dose: 64.167 mls/hr Documented by: Dextrose/Sodium Chloride (D5-Ns -) 1,000 mls @ 100 mls/hr IV ASDIR [facility] Last Admin: 02/09/20 09:00 Dose: 100 mls/hr Documented by: Methylprednisolone Sodium Succinate (Solu-Medrol -) 40 mg IVPUSH Q8H-IV [facility] Last Admin: 02/09/20 09:21 Dose: 40 mg Documented by: Pantoprazole Sodium (Protonix Iv) 40 mg IVPUSH BID [facility] Last Admin: 02/09/20 10:00 Dose: 40 mg Documented by: Sodium Chloride ([place] Nasal [place] -) 2 spray NS TID PRN PRN Reason: NASAL CONGESTION Tetrahydrozoline HCl (Visine -) 1 drop OU QID PRN PRN Reason: DRY EYES Last Admin: 02/09/20 08:34 Dose: 1 drop Documented by: Valproate Sodium (Depacon Injection -) 500 mg IVPB BID [facility] Last Admin: 02/09/20 10:00 Dose: 500 mg Documented by: ASSESSMENT AND PLAN: Acute Hypoxic and Hypercapneic Respiratory Failure s/p Cardiopulmonary Arrest Suspect Anoxic Brain Injury Pneumonia suspect Aspiration Sepsis Lactic Acidosis r/o HI Parkinsons Supranuclear Palsy - titrate up klonopin - continue antibiotics - monitor urine output, creatinine - titrate Fio2, PEEP to keep Spo2 >90% - continue volume assist control - enteral feeds - DVT/GI prophylaxis - continue ICU monitoring - poor overall prognosis, continue discussions regarding goals of care, advanced directives - will need tracheostomy pending family wishes - recommend comfort measures critical care time spent in reviewing chart, evaluating patient and formulating plan 35 min
[2020-02-09] MEDS ORDERED: SUCCINYLCHOLINE CHLORIDE 200 MG/10 ML VIAL IVPUSH ONE (14:09)
[2020-02-09] MEDS ORDERED: SUCCINYLCHOLINE CHLORIDE 200 MG/10 ML SYRINGE ONE (14:10)
--- NOTE | 2020-02-09 15:26 | PROC ---
Central Line Insertion Indication: Sepsis Risks and Benefits Explained: No (emergent) Consent on Chart: No Central Line: Triple Lumen Catheter Anesthesia: 1% Lidocaine Sterile Technique: Yes Ultrasound Guided Assistance: Yes Position: Right Internal Jugular Post Insertion: Yes: Chest X-Ray Ordered Sterile Dressing Applied: Yes
--- NOTE | 2020-02-09 15:31 | PN ---
Progress Note, Physician History of Present Illness: continues to seizing intubated - Current Medication List Current Medications: Active Medications Acetaminophen (Tylenol Oral Solution -) 650 mg GT Q4H PRN PRN Reason: FEVER Last Admin: 01/31/20 03:14 Dose: 650 mg Documented by: Acetylcysteine (Mucomyst 20 Oral / Inh Use Only*) 200 mg NEB RQ4H [facility] Last Admin: 02/09/20 15:14 Dose: 200 mg Documented by: Albuterol Sulfate (Ventolin 0.083% Nebulizer Soln -) 1 amp NEB Q4H PRN PRN Reason: SHORT OF BREATH/WHEEZING Last Admin: 02/09/20 15:15 Dose: 1 amp Documented by: Amino Acids (Prosource No Carb Liquid Pkt) 30 ml PO BIDWM [facility] Last Admin: 02/09/20 08:35 Dose: 30 ml Documented by: Carbidopa/Levodopa (Sinemet 25/250 -) 1 each PO 1600,1900,2200 [facility] Last Admin: 02/08/20 22:46 Dose: 1 each Documented by: Carbidopa/Levodopa (Sinemet 25/250 -) 1 each PO 0700,1000,1300 [facility] Last Admin: 02/09/20 14:30 Dose: Not Given Documented by: Chlorhexidine Gluconate (Hibiclens For Decolonization -) 1 applic TP HS [facility] Last Admin: 02/08/20 22:46 Dose: 1 applic Documented by: Clonazepam (Klonopin -) 2 mg GT TID [facility] Last Admin: 02/09/20 06:53 Dose: 2 mg Documented by: Propofol (Diprivan -) 1,000,000 mcg in 100 mls @ 2.449 mls/hr IVPB TITR [facility]; Protocol Last Admin: 02/08/20 22:46 Dose: 50 mcg/kg/min, 24.494 mls/hr Documented by: Piperacillin Sod/Tazobactam (Sod 4.5 gm/ Dextrose) 100 mls @ 200 mls/hr IVPB Q6H-IV [facility]; Protocol Last Admin: 02/09/20 14:30 Dose: 200 mls/hr Documented by: Midazolam HCl (Midazolam 100mg/100ml-0.9%Nacl) 100 mg in 100 mls @ 1 mls/hr IVPB TITR [facility]; Protocol Last Admin: 02/08/20 17:00 Dose: 10 mg/hr, 10 mls/hr Documented by: Fentanyl (Sublimaze Ivpb) 500 mcg in 100 mls @ 1 mls/hr IVPB TITR [facility] Last Admin: 02/09/20 06:53 Dose: 100 mcg/hr, 20 mls/hr Documented by: Dextrose/Sodium Chloride (D5-Ns -) 1,000 mls @ 100 mls/hr IV ASDIR [facility] Last Admin: 02/09/20 09:00 Dose: 100 mls/hr Documented by: Methylprednisolone Sodium Succinate (Solu-Medrol -) 40 mg IVPUSH Q8H-IV [facility] Last Admin: 02/09/20 09:21 Dose: 40 mg Documented by: Pantoprazole Sodium (Protonix Iv) 40 mg IVPUSH BID [facility] Last Admin: 02/09/20 10:00 Dose: 40 mg Documented by: Sodium Chloride ([place] Nasal [place] -) 2 spray NS TID PRN PRN Reason: NASAL CONGESTION Succinylcholine Chloride (Quelicin -) 70 mg IVPUSH ONCE ONE Stop: 02/09/20 14:10 Tetrahydrozoline HCl (Visine -) 1 drop OU QID PRN PRN Reason: DRY EYES Last Admin: 02/09/20 08:34 Dose: 1 drop Documented by: Valproate Sodium (Depacon Injection -) 500 mg IVPB BID [facility] Last Admin: 02/09/20 10:00 Dose: 500 mg Documented by: - Objective Vital Signs: Vital Signs Temperature 98.8 F 02/09/20 14:00 Pulse Rate 68 02/09/20 14:00 Respiratory Rate 18 02/09/20 14:00 Blood Pressure 116/56 L 02/09/20 14:00 O2 Sat by Pulse Oximetry (%) 100 02/09/20 12:30 Constitutional: Yes: Other Cardiovascular: Yes: S1, S2 Respiratory: Yes: Intubated, Mechanically Ventilated, Other (chest tube) Gastrointestinal: Yes: Normal Bowel Sounds, Soft Musculoskeletal: Yes: WNL Extremities: Yes: WNL Labs: CBC, BMP 02/09/20 05:15 02/09/20 05:15 INR, PTT INR 1.04 (0.83-1.09) 02/06/20 18:00 - ....Imaging Chest X-ray: Report Reviewed, Image Reviewed Assessment/Plan this patient with multiple medical issues coming in with ams and resp failure and now intubated Acute Hypoxic and Hypercapneic Respiratory Failure Pneumonia suspect Aspiration Sepsis Lactic Acidosis Parkinsons Supranuclear Palsy cardiac arrest seizures plan continue icu care iv abx organisms noted resp support close watch cc 37 min
--- NOTE | 2020-02-09 15:32 | PN ---
Progress Note, Physician - Current Medication List Current Medications: Active Medications Acetaminophen (Tylenol Oral Solution -) 650 mg GT Q4H PRN PRN Reason: FEVER Last Admin: 01/31/20 03:14 Dose: 650 mg Documented by: Acetylcysteine (Mucomyst 20 Oral / Inh Use Only*) 200 mg NEB RQ4H [facility] Last Admin: 02/09/20 15:14 Dose: 200 mg Documented by: Albuterol Sulfate (Ventolin 0.083% Nebulizer Soln -) 1 amp NEB Q4H PRN PRN Reason: SHORT OF BREATH/WHEEZING Last Admin: 02/09/20 15:15 Dose: 1 amp Documented by: Amino Acids (Prosource No Carb Liquid Pkt) 30 ml PO BIDWM [facility] Last Admin: 02/09/20 08:35 Dose: 30 ml Documented by: Carbidopa/Levodopa (Sinemet 25/250 -) 1 each PO 1600,1900,2200 [facility] Last Admin: 02/08/20 22:46 Dose: 1 each Documented by: Carbidopa/Levodopa (Sinemet 25/250 -) 1 each PO 0700,1000,1300 [facility] Last Admin: 02/09/20 14:30 Dose: Not Given Documented by: Chlorhexidine Gluconate (Hibiclens For Decolonization -) 1 applic TP HS [facility] Last Admin: 02/08/20 22:46 Dose: 1 applic Documented by: Clonazepam (Klonopin -) 2 mg GT TID [facility] Last Admin: 02/09/20 06:53 Dose: 2 mg Documented by: Propofol (Diprivan -) 1,000,000 mcg in 100 mls @ 2.449 mls/hr IVPB TITR [facility]; P rotocol Last Admin: 02/08/20 22:46 Dose: 50 mcg/kg/min, 24.494 mls/hr Documented by: Piperacillin Sod/Tazobactam (Sod 4.5 gm/ Dextrose) 100 mls @ 200 mls/hr IVPB Q6H-IV [facility]; Protocol Last Admin: 02/09/20 14:30 Dose: 200 mls/hr Documented by: Midazolam HCl (Midazolam 100mg/100ml-0.9%Nacl) 100 mg in 100 mls @ 1 mls/hr IVPB TITR [facility]; Protocol Last Admin: 02/08/20 17:00 Dose: 10 mg/hr, 10 mls/hr Documented by: Fentanyl (Sublimaze Ivpb) 500 mcg in 100 mls @ 1 mls/hr IVPB TITR [facility] Last Admin: 02/09/20 06:53 Dose: 100 mcg/hr, 20 mls/hr Documented by: Dextrose/Sodium Chloride (D5-Ns -) 1,000 mls @ 100 mls/hr IV ASDIR [facility] Last Admin: 02/09/20 09:00 Dose: 100 mls/hr Documented by: Methylprednisolone Sodium Succinate (Solu-Medrol -) 40 mg IVPUSH Q8H-IV [facility] Last Admin: 02/09/20 09:21 Dose: 40 mg Documented by: Pantoprazole Sodium (Protonix Iv) 40 mg IVPUSH BID [facility] Last Admin: 02/09/20 10:00 Dose: 40 mg Documented by: Sodium Chloride ([place] -) 2 spray NS TID PRN PRN Reason: NASAL CONGESTION Succinylcholine Chloride (Quelicin -) 70 mg IVPUSH ONCE ONE Stop: 02/09/20 14:10 Tetrahydrozoline HCl (Visine -) 1 drop OU QID PRN PRN Reason: DRY EYES Last Admin: 02/09/20 08:34 Dose: 1 drop Documented by: Valproate Sodium (Depacon Injection -) 500 mg IVPB BID [facility] Last Admin: 02/09/20 10:00 Dose: 500 mg Documented by: - Objective Vital Signs: Vital Signs Temperature 98.8 F 02/09/20 14:00 Pulse Rate 68 02/09/20 14:00 Respiratory Rate 18 02/09/20 14:00 Blood Pressure 116/56 L 02/09/20 14:00 O2 Sat by Pulse Oximetry (%) 100 02/09/20 12:30 Labs: CBC, BMP 02/09/20 05:15 02/09/20 05:15 INR, PTT INR 1.04 (0.83-1.09) 02/06/20 18:00
[2020-02-09] MEDS ORDERED: PROPOFOL 1,000,000 MCG/100 ML VIAL ONE (15:38)
[2020-02-09] MEDS: PROPOFOL 1,000,000 MCG/100 ML VIAL IVPB SCH (20:30)
[2020-02-09] MEDS: CHLORHEXIDINE GLUCONATE 4% CLEANSER FOR DECOLONIZATION TP SCH (21:11)
[2020-02-09 22:45] LABS: HEMOGLOBIN 8.3 GM/dL (11.7-16.9); MCH 30.6 pg (25.7-33.7); MCHC 33.2 g/dl (32.0-35.9); MEAN CELL VOLUME 92.1 fl (80-96); MEAN PLT VOLUME 8.4 fl (7.5-11.1); PLATELET COUNT 249 K/MM3 (134-434); RBC 2.71 M/mm3 (4.00-5.60); RDW 15.2 % (11.9-15.9); WHITE BLOOD COUNT 6.2 K/mm3 (4.0-10.0)
[2020-02-09] MEDS: MIDAZOLAM IN 0.9 % SOD.CHLORID 100 MG/100 ML PLAST..BAG IVPB SCH (23:00)
[2020-02-10] MEDS: methylPREDNISolone NA SUCC 40 MG/1 ML VIAL IVPUSH SCH ×3 (01:22→17:17)
[2020-02-10] MEDS ORDERED: LORazepam 2 MG/ML SDV VIAL ONE (01:30)
[2020-02-10] MEDS ORDERED: LORazepam 2 MG/ML SDV VIAL IVPUSH ONE (01:30)
[2020-02-10] MEDS: PIPERACILLIN/TAZOB 4.5 GM 4.5 GM in DEXTROSE 5%-WATER 100 ML IVPB SCH ×4 (03:45→20:38)
[2020-02-10] MEDS ORDERED: PIPERACILLIN/TAZOBACTAM 4.5 GM VIAL IVPB ONE ×3 (04:46→20:19)
[2020-02-10] MEDS ORDERED: DEXTROSE 5%-WATER 100 ML IVPB ONE ×3 (04:46→20:19)
[2020-02-10] MEDS: clonazePAM 2 MG TABLET GT SCH ×3 (06:20→21:22)
[2020-02-10] MEDS: CARBIDOPA/LEVODOPA 25/250 TABLET (FP) PO SCH ×7 (06:21→22:33)
[2020-02-10 06:49] LABS: ARTERIAL BLD GAS O2 SATURATION 97.8 mmHg (95-98); ARTERIAL BLOOD GAS BASE EXCESS 9.8 mmol/L (-2-2); ARTERIAL BLOOD GAS PO2 98.4 mmHg (80-100); ARTERIAL BLOOD GAS pH 7.487 (7.350-7.450)
[2020-02-10 07:09] LABS: ALLENS TEST POSITIVE; VENT MODE A/C; VENT RATE 18
[2020-02-10 07:26] LABS: HEMATOCRIT 28.1 % (35.4-49); HEMOGLOBIN 9.5 GM/dL (11.7-16.9); MCH 31.1 pg (25.7-33.7); MCHC 33.7 g/dl (32.0-35.9); MEAN CELL VOLUME 92.2 fl (80-96); MEAN PLT VOLUME 8.1 fl (7.5-11.1); PLATELET COUNT 271 K/MM3 (134-434); RBC 3.04 M/mm3 (4.00-5.60); RDW 15.1 % (11.9-15.9)
[2020-02-10] MEDS: ACETYLCYSTEINE 20% 200MG/ML 4 ML VIAL *FOR ORAL / INH USE ONLY NEB SCH ×4 (07:40→20:30)
[2020-02-10] MEDS: FENTANYL IVPB 500 MCG/100 ML BAG IVPB SCH ×4 (07:54→20:39)
[2020-02-10] MEDS: AMINO ACIDS/PROTEIN HYDROLYS 30 ML LIQUID.PKT PO SCH ×2 (07:58→16:40)
[2020-02-10] MEDS: ALBUTEROL SO4 0.083% IH SOL 2.5 MG/3 ML VIAL.NEB. NEB PRN ×4 (07:59→20:30)
[2020-02-10 08:05] LABS: POTASSIUM 3.6 mmol/L (3.5-5.1)
[2020-02-10 08:22] LABS: CALCIUM 7.9 mg/dL (8.5-10.1); CREATININE 0.4 mg/dL (0.55-1.3); PHOSPHOROUS 2.3 mg/dL (2.5-4.9)
[2020-02-10] MEDS ORDERED: PT OWN MED DRAWER 7, Y5N ONE ×2 (08:30→21:16)
[2020-02-10] MEDS ORDERED: POTASSIUM PHOSPHATE 20 MM in DEXTROSE 5%-WATER - 250 ML IVPB ONE (09:00)
[2020-02-10] MEDS: PANTOPRAZOLE SODIUM 40 MG VIAL IVPUSH SCH ×2 (09:15→21:22)
[2020-02-10] MEDS: VALPROATE SODIUM 500 MG/5 ML VIAL IVPB SCH ×2 (09:15→21:22)
[2020-02-10] MEDS: DEXTROSE 5%-NORMAL SALINE 1,000 ML IV SCH ×2 (09:15→23:00)
--- NOTE | 2020-02-10 11:10 | PN ---
Progress Note, Physician History of Present Illness: events noted chart reviewed Seen in the critical care setting case discussed with the registered nurse yesterday trial again of tapering off the Versed resulted in myoclonic jerks Still on a combination of the Depakote, the Versed and the Klonopin high dosage It is veryrare for the myoclonic induced anoxic brain damage to last more than 72-96 hours. Still waiting the results of the EEG - Current Medication List Current Medications: Active Medications Acetaminophen (Tylenol Oral Solution -) 650 mg GT Q4H PRN PRN Reason: FEVER Last Admin: 01/31/20 03:14 Dose: 650 mg Documented by: Acetylcysteine (Mucomyst 20 Oral / Inh Use Only*) 200 mg NEB RQ4H [facility] Last Admin: 02/10/20 07:40 Dose: 200 mg Documented by: Albuterol Sulfate (Ventolin 0.083% Nebulizer Soln -) 1 amp NEB Q4H PRN PRN Reason: SHORT OF BREATH/WHEEZING Last Admin: 02/10/20 07:59 Dose: 1 amp Documented by: Amino Acids (Prosource No Carb Liquid Pkt) 30 ml PO BIDWM [facility] Last Admin: 02/10/20 07:58 Dose: 30 ml Documented by: Carbidopa/Levodopa (Sinemet 25/250 -) 1 each PO 1600,1900,2200 [facility] Last Admin: 02/09/20 21:16 Dose: 1 each Documented by: Carbidopa/Levodopa (Sinemet 25/250 -) 1 each PO 0700,1000,1300 [facility] Last Admin: 02/10/20 10:47 Dose: 1 each Documented by: Chlorhexidine Gluconate (Hibiclens For Decolonization -) 1 applic TP HS [facility] Last Admin: 02/09/20 21:11 Dose: 1 applic Documented by: Clonazepam (Klonopin -) 2 mg GT TID [facility] Last Admin: 02/10/20 06:20 Dose: 2 mg Documented by: Propofol (Diprivan -) 1,000,000 mcg in 100 mls @ 2.449 mls/hr IVPB TITR [facility]; Protocol Last Titration: 02/10/20 01:48 Dose: 50 mcg/kg/min, 24.494 mls/hr Documented by: Piperacillin Sod/Tazobactam (Sod 4.5 gm/ Dextrose) 100 mls @ 200 mls/hr IVPB Q6H-IV [facility]; Protocol Last Admin: 02/10/20 09:15 Dose: 200 mls/hr Documented by: Midazolam HCl (Midazolam 100mg/100ml-0.9%Nacl) 100 mg in 100 mls @ 1 mls/hr IVPB TITR [facility]; Protocol Last Infusion: 02/10/20 01:01 Dose: 8 mg/hr, 8 mls/hr Documented by: Fentanyl (Sublimaze Ivpb) 500 mcg in 100 mls @ 1 mls/hr IVPB TITR [facility] Last Admin: 02/10/20 07:54 Dose: 80 mcg/hr, 16 mls/hr Documented by: Dextrose/Sodium Chloride (D5-Ns -) 1,000 mls @ 100 mls/hr IV ASDIR [facility] Last Admin: 02/10/20 09:15 Dose: 100 mls/hr Documented by: Potassium Phosphate 20 mm/ (Dextrose) 256.6667 mls @ 42.778 mls/hr IVPB ONCE ONE Stop: 02/10/20 14:59 Last Admin: 02/10/20 10:47 Dose: 42.778 mls/hr Documented by: Methylprednisolone Sodium Succinate (Solu-Medrol -) 40 mg IVPUSH Q8H-IV [facility] Last Admin: 02/10/20 09:16 Dose: 40 mg Documented by: Pantoprazole Sodium (Protonix Iv) 40 mg IVPUSH BID [facility] Last Admin: 02/10/20 09:15 Dose: 40 mg Documented by: Sodium Chloride ([place] Nasal [place] -) 2 spray NS TID PRN PRN Reason: NASAL CONGESTION Tetrahydrozoline HCl (Visine -) 1 drop OU QID PRN PRN Reason: DRY EYES Last Admin: 02/09/20 08:34 Dose: 1 drop Documented by: Valproate Sodium (Depacon Injection -) 500 mg IVPB BID [facility] Last Admin: 02/10/20 09:15 Dose: 500 mg Documented by: - Objective Vital Signs: Vital Signs Temperature 97.8 F 02/10/20 08:00 Pulse Rate 82 02/10/20 10:00 Respiratory Rate 18 02/10/20 10:00 Blood Pressure 130/65 02/10/20 10:00 O2 Sat by Pulse Oximetry (%) 99 02/10/20 09:00 Constitutional: Yes: Well Nourished Eyes: Yes: WNL Neurological: Yes: Unresponsive, Other (ppinpoint pupil positive corneal not brain ) Labs: CBC, BMP 02/10/20 06:23 02/10/20 06:23 INR, PTT INR 1.04 (0.83-1.09) 02/06/20 18:00 Problem List - Problems (1) Parkinson disease Code(s): G20 - PARKINSON'S DISEASE (2) Cardiac arrest Code(s): I46.9 - CARDIAC ARREST, CAUSE UNSPECIFIED Assessment/Plan 1. Continue supportive care. 2. Daily CBC. 3. Trial again today to taper the Versed. 4. EEG. 5. Depakote level. 6. I will speak to the son again who is a doctor regarding terminal wean Again I emphasized that the patient is not brain
--- NOTE | 2020-02-10 11:12 | PN ---
Progress Note, Physician Chief Complaint: Acute Hypoxic and Hypercapneic Respiratory Failure Pneumonia suspect Aspiration Sepsis Lactic Acidosis Parkinsons Supranuclear Palsy History of Present Illness: 4 year old non-verbal male with PMH of Parkinson's disease with Supranuclear palsy with PEG tube placed. Last admission at [facility] was in November for Aspiration PNA. Pt unable to communicate and family not present at bedside. As per ER staff, pt was with AMS earlier today, pt is non verbal at baseline but is able to communicate minimally using hand gestures. EMS was called and pt was found to be hypoxic in the 80s on home oxygen of 2L, which improved to 90s after Ambu bagging. In the ER, he was sedated and intubated, septic workup initiated, and admitted to the ICU. In the ER pt again began to desat, CXR showed massive left sided effusion/infiltrate and chest tube was palced with improvement in SpO2. Pt extubated on 01/28/20, re-intubated s/p Cardiac arrest on 01/31/20 Seen by palliative medicine-Family wants everything done Off pressors + myoclonus off sedation and even on increased dosage of Clonazepam Feeds on hold CT head-not consistent with anoxic brain damage. Awaiting EEG results Revaluated by neurology last evening - Current Medication List Current Medications: Active Medications Acetaminophen (Tylenol Oral Solution -) 650 mg GT Q4H PRN PRN Reason: FEVER Last Admin: 01/31/20 03:14 Dose: 650 mg Documented by: Acetylcysteine (Mucomyst 20 Oral / Inh Use Only*) 200 mg NEB RQ4H [facility] Last Admin: 02/10/20 07:40 Dose: 200 mg Documented by: Albuterol Sulfate (Ventolin 0.083% Nebulizer Soln -) 1 amp NEB Q4H PRN PRN Reason: SHORT OF BREATH/WHEEZING Last Admin: 02/10/20 07:59 Dose: 1 amp Documented by: Amino Acids (Prosource No Carb Liquid Pkt) 30 ml PO BIDWM [facility] Last Admin: 02/10/20 07:58 Dose: 30 ml Documented by: Carbidopa/Levodopa (Sinemet 25/250 -) 1 each PO 1600,1900,2200 [facility] Last Admin: 02/09/20 21:16 Dose: 1 each Documented by: Carbidopa/Levodopa (Sinemet 25/250 -) 1 each PO 0700,1000,1300 [facility] Last Admin: 02/10/20 10:47 Dose: 1 each Documented by: Chlorhexidine Gluconate (Hibiclens For Decolonization -) 1 applic TP HS [facility] Last Admin: 02/09/20 21:11 Dose: 1 applic Documented by: Clonazepam (Klonopin -) 2 mg GT TID [facility] Last Admin: 02/10/20 06:20 Dose: 2 mg Documented by: Propofol (Diprivan -) 1,000,000 mcg in 100 mls @ 2.449 mls/hr IVPB TITR [facility]; Protocol Last Titration: 02/10/20 01:48 Dose: 50 mcg/kg/min, 24.494 mls/hr Documented by: Piperacillin Sod/Tazobactam (Sod 4.5 gm/ Dextrose) 100 mls @ 200 mls/hr IVPB Q6H-IV [facility]; Protocol Last Admin: 02/10/20 09:15 Dose: 200 mls/hr Documented by: Midazolam HCl (Midazolam 100mg/100ml-0.9%Nacl) 100 mg in 100 mls @ 1 mls/hr IVPB TITR [facility]; Protocol Last Infusion: 02/10/20 01:01 Dose: 8 mg/hr, 8 mls/hr Documented by: Fentanyl (Sublimaze Ivpb) 500 mcg in 100 mls @ 1 mls/hr IVPB TITR [facility] Last Admin: 02/10/20 07:54 Dose: 80 mcg/hr, 16 mls/hr Documented by: Dextrose/Sodium Chloride (D5-Ns -) 1,000 mls @ 100 mls/hr IV ASDIR [facility] Last Admin: 02/10/20 09:15 Dose: 100 mls/hr Documented by: Potassium Phosphate 20 mm/ (Dextrose) 256.6667 mls @ 42.778 mls/hr IVPB ONCE ONE Stop: 02/10/20 14:59 Last Admin: 02/10/20 10:47 Dose: 42.778 mls/hr Documented by: Methylprednisolone Sodium Succinate (Solu-Medrol -) 40 mg IVPUSH Q8H-IV [facility] Last Admin: 02/10/20 09:16 Dose: 40 mg Documented by: Pantoprazole Sodium (Protonix Iv) 40 mg IVPUSH BID [facility] Last Admin: 02/10/20 09:15 Dose: 40 mg Documented by: Sodium Chloride ([place] Nasal [place] -) 2 spray NS TID PRN PRN Reason: NASAL CONGESTION Tetrahydrozoline HCl (Visine -) 1 drop OU QID PRN PRN Reason: DRY EYES Last Admin: 02/09/20 08:34 Dose: 1 drop Documented by: Valproate Sodium (Depacon Injection -) 500 mg IVPB BID [facility] Last Admin: 02/10/20 09:15 Dose: 500 mg Documented by: - Objective Vital Signs: Vital Signs Temperature 97.8 F 02/10/20 08:00 Pulse Rate 82 02/10/20 10:00 Respiratory Rate 18 02/10/20 10:00 Blood Pressure 130/65 02/10/20 10:00 O2 Sat by Pulse Oximetry (%) 99 02/10/20 09:00 Constitutional: Yes: Well Nourished, No Distress, Calm Cardiovascular: Yes: Regular Rate and Rhythm Respiratory: Yes: Regular, Mechanically Ventilated, Rhonchi (diffuse) Gastrointestinal: Yes: Soft, Hypoactive Bowel Sounds Genitourinary: Yes: Merchant Present Extremities: Yes: Other (contracted) Edema: No Peripheral Pulses WNL: Yes Neurological: Yes: Other (sedated) Labs: CBC, BMP 02/10/20 06:23 02/10/20 06:23 INR, PTT INR 1.04 (0.83-1.09) 02/06/20 18:00 Problem List - Problems (1) Pneumonia Assessment/Plan: -recurrent -ID consult -IV Zosyn -IV medrol -Serial CXR's -Pulmonary on board -Bronchodilators -Mech vent -COVID 19 PCR negative -Cultures: Microbiology 01/27/20 07:00 Sputum - Endotrachea Suction/Ventilator Gram Stain - Final 01/25/20 14:00 Sputum - Endotrachea Suction/Ventilator Gram Stain - Final 01/25/20 14:00 Sputum - Endotrachea Suction/Ventilator Sputum Culture - Final Pseudomonas Aeruginosa Staphylococcus Aureus 01/24/20 23:05 Blood - Peripheral Venous Blood Culture - Preliminary NO GROWTH OBTAINED AFTER 48 HOURS, INCUBATION TO CONTINUE FOR 3 DAYS. 01/24/20 23:05 Blood - Peripheral Venous Blood Culture - Preliminary NO GROWTH OBTAINED AFTER 48 HOURS, INCUBATION TO CONTINUE FOR 3 DAYS. 01/24/20 23:15 Urine - Urine - Catheterized Urine Culture - Final NO GROWTH OBTAINED Problems reviewed: Yes Code(s): J18.9 - PNEUMONIA, UNSPECIFIED ORGANISM Qualifiers: Pneumonia type: due to unspecified organism Laterality: bilateral Lung location: unspecified part of lung Qualified Code(s): J18.9 - Pneumonia, unspecified organism (2) Respiratory failure Assessment/Plan: as above -CXR worse-progress opacification of left hemithorax -trach? Consult ENT -S/p chest tube for pleural effusion/infiltrate -Vent AC: Rate 14, TV 400, FIO2 60%, PEEP 5, Pplat 25. -Attempted weaning, patient began to have myoclonus off sedation. -Mucomyst, Ventolin, Solumedrol 40 Q8H Problems reviewed: Yes Code(s): J96.90 - RESPIRATORY FAILURE, UNSP, UNSP W HYPOXIA OR HYPERCAPNIA Qualifiers: Chronicity: acute Respiratory failure complication: hypoxia Qualified Code(s): J96.01 - Acute respiratory failure with hypoxia (3) Functional quadriplegia Problems reviewed: Yes Code(s): R53.2 - FUNCTIONAL QUADRIPLEGIA (4) Parkinson disease Assessment/Plan: -Continue Sinemet Problems reviewed: Yes Code(s): G20 - PARKINSON'S DISEASE (5) Supranuclear palsy Assessment/Plan: -Seen by neurology -CT head (02/01): Mild chronic microvascular ischemic changes, possible 1.4cm focal infarct in posterior fossa -CT Head (02/02): Previously identified focal attenuation in cerebellum not definitely identified Problems reviewed: Yes Code(s): G23.1 - PROGRESSIVE SUPRANUCLEAR OPHTHALMOPLEGIA (6) Cardiac arrest Assessment/Plan: -re-intubated Problems reviewed: Yes Code(s): I46.9 - CARDIAC ARREST, CAUSE UNSPECIFIED (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 -Increased klonopin from 1 mg BID to 2 mg Q8H for myoclonus [place] syndrome -Repeat CT head shows no change, no anoxic brain injury -Await EEG results -Neurology input would take the lead Problems reviewed: Yes Code(s): G25.3 - MYOCLONUS Assessment/Plan See problem list
--- NOTE | 2020-02-10 12:13 | PN ---
Progress Note (short form) - Note Progress Note: Palliative care f/up Parkinsons disease with PSN, bed and w/c bound at baseline, non verbal and on t/feeds recurrent aspiration pneumonia left lung infiltrate/ effusion acute respiratory failure, vent dependent sepsis pressure ulcer s/p cardiac arrest new onset seizures infarct seen on CTH Full code Off pressors + myoclonus off sedation and even on increased dosage of Clonazepam Feeds on hold CT head-not consistent with anoxic brain damage. Awaiting EEG results Revaluated by neurology last evening, EEG results pending but neurology recommending terminal wean Prognosis is guarded. Chances of a meaningful recovery appear slim. family want full code for now and are requesting jejunostomy and possible tracheostomy. have left a message for pt's son Eusebio. WIll follow. Problem List - Problems (1) Cardiac arrest Code(s): I46.9 - CARDIAC ARREST, CAUSE UNSPECIFIED (2) Pneumonia Code(s): J18.9 - PNEUMONIA, UNSPECIFIED ORGANISM Qualifiers: Pneumonia type: due to unspecified organism Laterality: bilateral Lung location: unspecified part of lung Qualified Code(s): J18.9 - Pneumonia, unspecified organism (3) Respiratory failure Code(s): J96.90 - RESPIRATORY FAILURE, UNSP, UNSP W HYPOXIA OR HYPERCAPNIA Qualifiers: Chronicity: acute Respiratory failure complication: hypoxia Qualified Code(s): J96.01 - Acute respiratory failure with hypoxia (4) Functional quadriplegia Code(s): R53.2 - FUNCTIONAL QUADRIPLEGIA (5) Gastrostomy status Code(s): Z93.1 - GASTROSTOMY STATUS (6) Parkinson disease Code(s): G20 - PARKINSON'S DISEASE (7) Supranuclear palsy Code(s): G23.1 - PROGRESSIVE SUPRANUCLEAR OPHTHALMOPLEGIA
--- NOTE | 2020-02-10 12:54 | PN ---
Progress Note, Physician - Current Medication List Current Medications: Active Medications Acetaminophen (Tylenol Oral Solution -) 650 mg GT Q4H PRN PRN Reason: FEVER Last Admin: 01/31/20 03:14 Dose: 650 mg Documented by: Acetylcysteine (Mucomyst 20 Oral / Inh Use Only*) 200 mg NEB RQ4H [facility] Last Admin: 02/10/20 11:45 Dose: 200 mg Documented by: Albuterol Sulfate (Ventolin 0.083% Nebulizer Soln -) 1 amp NEB Q4H PRN PRN Reason: SHORT OF BREATH/WHEEZING Last Admin: 02/10/20 11:45 Dose: 1 amp Documented by: Amino Acids (Prosource No Carb Liquid Pkt) 30 ml PO BIDWM [facility] Last Admin: 02/10/20 07:58 Dose: 30 ml Documented by: Carbidopa/Levodopa (Sinemet 25/250 -) 1 each PO 1600,1900,2200 [facility] Last Admin: 02/09/20 21:16 Dose: 1 each Documented by: Carbidopa/Levodopa (Sinemet 25/250 -) 1 each PO 0700,1000,1300 [facility] Last Admin: 02/10/20 10:47 Dose: 1 each Documented by: Chlorhexidine Gluconate (Hibiclens For Decolonization -) 1 applic TP HS [facility] Last Admin: 02/09/20 21:11 Dose: 1 applic Documented by: Clonazepam (Klonopin -) 2 mg GT TID [facility] Last Admin: 02/10/20 06:20 Dose: 2 mg Documented by: Propofol (Diprivan -) 1,000,000 mcg in 100 mls @ 2.449 mls/hr IVPB TITR [facility]; Protocol Last Titration: 02/10/20 01:48 Dose: 50 mcg/kg/min, 24.494 mls/hr Documented by: Piperacillin Sod/Tazobactam (Sod 4.5 gm/ Dextrose) 100 mls @ 200 mls/hr IVPB Q6H-IV [facility]; Protocol Last Admin: 02/10/20 09:15 Dose: 200 mls/hr Documented by: Midazolam HCl (Midazolam 100mg/100ml-0.9%Nacl) 100 mg in 100 mls @ 1 mls/hr IVPB TITR [facility]; Protocol Last Infusion: 02/10/20 01:01 Dose: 8 mg/hr, 8 mls/hr Documented by: Fentanyl (Sublimaze Ivpb) 500 mcg in 100 mls @ 1 mls/hr IVPB TITR [facility] Last Admin: 02/10/20 07:54 Dose: 80 mcg/hr, 16 mls/hr Documented by: Dextrose/Sodium Chloride (D5-Ns -) 1,000 mls @ 100 mls/hr IV ASDIR [facility] Last Admin: 02/10/20 09:15 Dose: 100 mls/hr Documented by: Potassium Phosphate 20 mm/ (Dextrose) 256.6667 mls @ 42.778 mls/hr IVPB ONCE ONE Stop: 02/10/20 14:59 Last Admin: 02/10/20 10:47 Dose: 42.778 mls/hr Documented by: Methylprednisolone Sodium Succinate (Solu-Medrol -) 40 mg IVPUSH Q8H-IV [facility] Last Admin: 02/10/20 09:16 Dose: 40 mg Documented by: Pantoprazole Sodium (Protonix Iv) 40 mg IVPUSH BID [facility] Last Admin: 02/10/20 09:15 Dose: 40 mg Documented by: Sodium Chloride ([place] Nasal [place] -) 2 spray NS TID PRN PRN Reason: NASAL CONGESTION Tetrahydrozoline HCl (Visine -) 1 drop OU QID PRN PRN Reason: DRY EYES Last Admin: 02/09/20 08:34 Dose: 1 drop Documented by: Valproate Sodium (Depacon Injection -) 500 mg IVPB BID [facility] Last Admin: 02/10/20 09:15 Dose: 500 mg Documented by: - Objective Vital Signs: Vital Signs Temperature 97.8 F 02/10/20 08:00 Pulse Rate 82 02/10/20 10:00 Respiratory Rate 18 02/10/20 12:10 Blood Pressure 130/65 02/10/20 10:00 O2 Sat by Pulse Oximetry (%) 99 02/10/20 12:10 Labs: CBC, BMP 02/10/20 06:23 02/10/20 06:23 INR, PTT INR 1.04 (0.83-1.09) 02/06/20 18:00
--- NOTE | 2020-02-10 13:38 | PN ---
Teaching Attending Note Name of Resident: Errol Franco ATTENDING PHYSICIAN STATEMENT I saw and evaluated the patient. I reviewed the resident's note and discussed the case with the resident. I agree with the resident's findings and plan as documented. SUBJECTIVE: Patient seen and examined in the ICU. Intubated on AC Mode of vent. Persistent myoclonic jerks. No clinical improvement noted. No pressors. Intake & Output 02/07/20 02/08/20 02/09/20 02/10/20 23:59 23:59 23:59 23:59 Intake Total 2946 3210.7 3710.2 2661 Output Total 3200 1600 2100 700 Balance -254 1610.7 1610.2 1961 Weight 171 lb 8 oz 173 lb 6.4 oz 163 lb 11.2 oz 167 lb 1.6 oz Last Vital Signs Temp Pulse Resp BP Pulse Ox 97.8 F 82 18 130/65 99 02/10/20 08:00 02/10/20 10:00 02/10/20 12:10 02/10/20 10:00 02/10/20 12:10 Active Medications Acetaminophen (Tylenol Oral Solution -) 650 mg GT Q4H PRN PRN Reason: FEVER Last Admin: 01/31/20 03:14 Dose: 650 mg Documented by: Acetylcysteine (Mucomyst 20 Oral / Inh Use Only*) 200 mg NEB RQ4H [facility] Last Admin: 02/10/20 11:45 Dose: 200 mg Documented by: Albuterol Sulfate (Ventolin 0.083% Nebulizer Soln -) 1 amp NEB Q4H PRN PRN Reason: SHORT OF BREATH/WHEEZING Last Admin: 02/10/20 11:45 Dose: 1 amp Documented by: Amino Acids (Prosource No Carb Liquid Pkt) 30 ml PO BIDWM [facility] Last Admin: 02/10/20 07:58 Dose: 30 ml Documented by: Carbidopa/Levodopa (Sinemet 25/250 -) 1 each PO 1600,1900,2200 [facility] Last Admin: 02/09/20 21:16 Dose: 1 each Documented by: Carbidopa/Levodopa (Sinemet 25/250 -) 1 each PO 0700,1000,1300 [facility] Last Admin: 02/10/20 10:47 Dose: 1 each Documented by: Chlorhexidine Gluconate (Hibiclens For Decolonization -) 1 applic TP HS [facility] Last Admin: 02/09/20 21:11 Dose: 1 applic Documented by: Clonazepam (Klonopin -) 2 mg GT TID [facility] Last Admin: 02/10/20 06:20 Dose: 2 mg Documented by: Propofol (Diprivan -) 1,000,000 mcg in 100 mls @ 2.449 mls/hr IVPB TITR [facility]; Protocol Last Titration: 02/10/20 01:48 Dose: 50 mcg/kg/min, 24.494 mls/hr Documented by: Piperacillin Sod/Tazobactam (Sod 4.5 gm/ Dextrose) 100 mls @ 200 mls/hr IVPB Q6H-IV [facility]; Protocol Last Admin: 02/10/20 09:15 Dose: 200 mls/hr Documented by: Midazolam HCl (Midazolam 100mg/100ml-0.9%Nacl) 100 mg in 100 mls @ 1 mls/hr IVPB TITR [facility]; Protocol Last Infusion: 02/10/20 01:01 Dose: 8 mg/hr, 8 mls/hr Documented by: Fentanyl (Sublimaze Ivpb) 500 mcg in 100 mls @ 1 mls/hr IVPB TITR [facility] Last Admin: 02/10/20 07:54 Dose: 80 mcg/hr, 16 mls/hr Documented by: Dextrose/Sodium Chloride (D5-Ns -) 1,000 mls @ 100 mls/hr IV ASDIR [facility] Last Admin: 02/10/20 09:15 Dose: 100 mls/hr Documented by: Potassium Phosphate 20 mm/ (Dextrose) 256.6667 mls @ 42.778 mls/hr IVPB ONCE ONE Stop: 02/10/20 14:59 Last Admin: 02/10/20 10:47 Dose: 42.778 mls/hr Documented by: Methylprednisolone Sodium Succinate (Solu-Medrol -) 40 mg IVPUSH Q8H-IV [facility] Last Admin: 02/10/20 09:16 Dose: 40 mg Documented by: Pantoprazole Sodium (Protonix Iv) 40 mg IVPUSH BID [facility] Last Admin: 02/10/20 09:15 Dose: 40 mg Documented by: Sodium Chloride ([place] Nasal [place] -) 2 spray NS TID PRN PRN Reason: NASAL CONGESTION Tetrahydrozoline HCl (Visine -) 1 drop OU QID PRN PRN Reason: DRY EYES Last Admin: 02/09/20 08:34 Dose: 1 drop Documented by: Valproate Sodium (Depacon Injection -) 500 mg IVPB BID [facility] Last Admin: 02/10/20 09:15 Dose: 500 mg Documented by: Gen: intubated, myoclonic jerks Heart: RRR Lung: Vented, scattered rhonchi Abd: soft, nontender Ext: no edema Laboratory Results - last 24 hr 02/09/20 02/10/20 02/10/20 22:00 06:15 06:23 WBC 6.2 7.0 RBC 2.71 L 3.04 L Hgb 8.3 L 9.5 L Hct 25.0 L 28.1 L MCV 92.1 92.2 MCH 30.6 31.1 MCHC 33.2 33.7 RDW 15.2 15.1 Plt Count 249 271 MPV 8.4 8.1 Anticoagulation Therapy No Result Required. Puncture Site Right radial Patient Temperature No Result Required. ABG pH 7.487 H ABG pCO2 46.50 H ABG pO2 98.4 ABG HCO3 34.4 H ABG O2 Sat (Measured) 97.8 ABG O2 Content No Result Required. ABG Base Excess 9.8 H Darion Test Positive Patient On Oxygen Yes O2 Delivery Device Vent Oxygen Flow Rate 50% Vent Mode A/c Vent Rate 18 Mechanical Rate Yes PEEP 7.0 Pressure Support Vent 400 Sodium Potassium Chloride Carbon Dioxide Anion Gap BUN Creatinine Est GFR (CKD-EPI)AfAm Est GFR (CKD-EPI)NonAf Random Glucose Calcium Phosphorus Magnesium 02/10/20 06:23 WBC RBC Hgb Hct MCV MCH MCHC RDW Plt Count MPV Anticoagulation Therapy Puncture Site Patient Temperature ABG pH ABG pCO2 ABG pO2 ABG HCO3 ABG O2 Sat (Measured) ABG O2 Content ABG Base Excess Darion Test Patient On Oxygen O2 Delivery Device Oxygen Flow Rate Vent Mode Vent Rate Mechanical Rate PEEP Pressure Support Vent Sodium 143 Potassium 3.6 Chloride 103 Carbon Dioxide 37 H Anion Gap 3 L BUN 11.0 Creatinine 0.4 L Est GFR (CKD-EPI)AfAm 143.45 Est GFR (CKD-EPI)NonAf 123.77 Random Glucose 144 H Calcium 7.9 L Phosphorus 2.3 L Magnesium 2.0 ASSESSMENT AND PLAN: Acute Hypoxic and Hypercapneic Respiratory Failure s/p Cardiopulmonary Arrest Suspect Anoxic Brain Injury Pneumonia suspect Aspiration Sepsis Lactic Acidosis r/o MS Parkinsons Supranuclear Palsy - AC Mode of vent - titrate up klonopin - ABX per ID - monitor urine output, creatinine - Enteral feeds - DVT/GI prophylaxis - continue ICU monitoring - poor overall prognosis, continue discussions regarding goals of care, advanced directives - will need tracheostomy pending family wishes, however Tracheostomy in this patient would not be an appropriate intervention given his overall condition/outcome - recommend comfort measures with compassionate extubation Dr Scott Critical care time spent in reviewing chart, evaluating patient and formulating plan 35 min
[2020-02-10] MEDS: TETRAHYDROZOLINE HCL EYE DROPS OU PRN (14:13)
[2020-02-10] MEDS: PROPOFOL 1,000,000 MCG/100 ML VIAL IVPB SCH ×2 (16:38→22:50)
--- NOTE | 2020-02-10 16:57 | PN ---
Physical Exam: SUBJECTIVE: Patient seen and examined. Patient had dark red urine and one small dark brown stool. Bradycardic to 50s (sinus bradycardia). Continues to have myoclonic jerks, which was managed with 2 mg of ativan. OBJECTIVE: Vital Signs Period Temp Pulse Resp BP Sys/Villegas Pulse Ox Last 24 Hr 97.8 F-98.7 F 44-82 15-19 111-154/56-71 98-100 GENERAL: Intubated and sedated HEENT: NC,AT, pinpoint pupils, edema of lips LUNGS: Breath sounds equal, clear to auscultation bilaterally, no wheezes, no crackles, no accessory muscle use. decreased breath sounds bases b/l HEART: Regular rate and rhythm, S1, S2 without murmur, rub or gallop. ABDOMEN: Soft, nontender, nondistended, normoactive bowel sounds, no guarding, PEG tube in RUQ EXTREMITIES: 2+ pulses, warm, well-perfused, minimal intermittent myoclonic jerks in feet b/l. 1+ edema UE SKIN: Warm, dry, stage III ulcer on L buttock, no erythema, no discharge Neuro: no gag reflex appreciated Laboratory Results - last 24 hr 02/09/20 02/10/20 02/10/20 22:00 06:15 06:23 WBC 6.2 7.0 RBC 2.71 L 3.04 L Hgb 8.3 L 9.5 L Hct 25.0 L 28.1 L MCV 92.1 92.2 MCH 30.6 31.1 MCHC 33.2 33.7 RDW 15.2 15.1 Plt Count 249 271 MPV 8.4 8.1 Anticoagulation Therapy No Result Required. Puncture Site Right radial Patient Temperature No Result Required. ABG pH 7.487 H ABG pCO2 46.50 H ABG pO2 98.4 ABG HCO3 34.4 H ABG O2 Sat (Measured) 97.8 ABG O2 Content No Result Required. ABG Base Excess 9.8 H Darion Test Positive Patient On Oxygen Yes O2 Delivery Device Vent Oxygen Flow Rate 50% Vent Mode A/c Vent Rate 18 Mechanical Rate Yes PEEP 7.0 Pressure Support Vent 400 Sodium Potassium Chloride Carbon Dioxide Anion Gap BUN Creatinine Est GFR (CKD-EPI)AfAm Est GFR (CKD-EPI)NonAf Random Glucose Calcium Phosphorus Magnesium 02/10/20 06:23 WBC RBC Hgb Hct MCV MCH MCHC RDW Plt Count MPV Anticoagulation Therapy Puncture Site Patient Temperature ABG pH ABG pCO2 ABG pO2 ABG HCO3 ABG O2 Sat (Measured) ABG O2 Content ABG Base Excess Darion Test Patient On Oxygen O2 Delivery Device Oxygen Flow Rate Vent Mode Vent Rate Mechanical Rate PEEP Pressure Support Vent Sodium 143 Potassium 3.6 Chloride 103 Carbon Dioxide 37 H Anion Gap 3 L BUN 11.0 Creatinine 0.4 L Est GFR (CKD-EPI)AfAm 143.45 Est GFR (CKD-EPI)NonAf 123.77 Random Glucose 144 H Calcium 7.9 L Phosphorus 2.3 L Magnesium 2.0 Active Medications Generic Name Dose Route Start Last Admin Trade Name Freq PRN Reason Stop Dose Admin Acetaminophen 650 mg 01/27/20 17:27 01/31/20 03:14 Tylenol Oral Solution - GT 650 mg Q4H PRN Administration FEVER Acetylcysteine 200 mg 01/29/20 16:12 02/10/20 11:45 Mucomyst 20 Oral / Inh Use Only* NEB 200 mg RQ4H AMRITA Administration Albuterol Sulfate 1 amp 02/09/20 06:11 02/10/20 11:45 Ventolin 0.083% Nebulizer Soln - NEB 1 amp Q4H PRN Administration SHORT OF BREATH/WHEEZING Amino Acids 30 ml 02/03/20 08:00 02/10/20 16:40 Prosource No Carb Liquid Pkt PO 30 ml BIDWM AMRITA Administration Carbidopa/Levodopa 1 each 01/29/20 16:00 02/10/20 16:07 Sinemet 25/250 - PO 1 each 1600,1900,2200 AMRITA Administration Carbidopa/Levodopa 1 each 01/30/20 07:00 02/10/20 13:53 Sinemet 25/250 - PO 1 each 0700,1000,1300 AMRITA Administration Chlorhexidine Gluconate 1 applic 01/25/20 22:00 02/09/20 21:11 Hibiclens For Decolonization - TP 1 applic HS AMRITA Administration Clonazepam 2 mg 02/07/20 10:45 02/10/20 13:48 Klonopin - GT 2 mg TID AMRITA Administration Propofol 1,000,000 mcg in 100 mls @ 2.449 mls/hr 01/24/20 22:45 02/10/20 16:38 Diprivan - IVPB 50 mcg/kg/min TITR AMRITA 24.494 mls/hr Administration Protocol 5 MCG/KG/MIN Piperacillin Sod/Tazobactam 100 mls @ 200 mls/hr 01/25/20 10:27 02/10/20 14:10 Sod 4.5 gm/ Dextrose IVPB 200 mls/hr Q6H-IV AM[facility]ITA Administration Protocol Midazolam HCl 100 mg in 100 mls @ 1 mls/hr 02/05/20 19:00 02/10/20 01:01 Midazolam 100mg/100ml-0.9%Nacl IVPB 8 mg/hr TITR AMRITA 8 mls/hr Infusion Protocol 1 MG/HR Fentanyl 500 mcg in 100 mls @ 1 mls/hr 02/09/20 04:30 02/10/20 07:54 Sublimaze Ivpb IVPB 80 mcg/hr TITR AM[facility]ITA 16 mls/hr Administration 5 MCG/HR Dextrose/Sodium Chloride 1,000 mls @ 100 mls/hr 02/09/20 08:58 02/10/20 09:15 D5-Ns - IV 100 mls/hr ASDIR [facility]ITA Administration Methylprednisolone Sodium Succinate 40 mg 01/31/20 13:00 02/10/20 09:16 Solu-Medrol - IVPUSH 40 mg Q8H-IV [facility]ITA Administration Pantoprazole Sodium 40 mg 02/07/20 22:00 02/10/20 09:15 Protonix Iv IVPUSH 40 mg BID AM[facility]ITA Administration Sodium Chloride 2 spray 01/30/20 06:54 [place]al [place] - NS TID PRN NASAL CONGESTION Tetrahydrozoline HCl 1 drop 01/27/20 18:51 02/10/20 14:13 Visine - OU 1 drop QID PRN Administration DRY EYES Valproate Sodium 500 mg 02/07/20 22:00 02/10/20 09:15 Depacon Injection - IVPB 500 mg BID AMRITA Administration ASSESSMENT/PLAN: 64 YO M PMH HTN, BPH, Parkinson's disease with Supranuclear palsy (with PEG tube in RUQ). Found to have PNA. Admitted to ICU for Acute hypoxic, hypercapnic respiratory failure 2/2 PNA. #Neuro - Re-intubated 01/30 after cardiac arrest, Intubated and sedated with midazolam 10 mg/h, propofol 50 mcg/kg/min and fentanl 100 mcg/h. - CT head (02/01): Mild chronic microvascular ischemic changes, possible 1.4cm focal infarct in posterior fossa - CT Head (02/02): Previously identified focal attenuation in cerebellum not definitely identified -Parkinson's disease. 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 Bilateral mastoid effusion/mastoiditis & bilateral otitis media. Moderate volume loss. -Bedside EEG: First phase: no electric seizure and slow background with no asymmetry consistent with history Anoxia. Second phase sedation stopped; pt clinically shaking, but with no electric seizure #Pulm # Acute hypoxic, hypercapnic respiratory failure 2/2 PNA - S/p chest tube for pleural effusion/infiltrate -CXR: Interval placement of right central with distal tip at level of SVC. Hazy Left basilar opacity suggestive of pleural effusion with atlectasis have not significantly changed. Right basilar patchy opacity is not significantly changed. -Vent AC: Rate 18, TV 400, FIO2 50%, PEEP 7, Pplat 23. -Patient already had myoclonic jerks under sedation. Did not attempt to turn off sedation today. Will consider trach and consult Dr. Shi. - Mucomyst, Ventolin, Solumedrol 40 Q8H (01/30) -ABG INCREASED pH 7.487, PCO2 46.5, HCO3 34.4, base excess 9.8// WNL O2 98.4 #Cardio #HTN: hypotensive. will hold home medications affecting BP. maintain MAP >65. #ST elevation on EKG EKG: Sinus tachycardia. Left axis deviation. Right bundle branch block. ST elevation. 101 bpm, QTC 464. -Trop X2 negative -lactic acidosis resolved. -Cardiology consult (Dr. Jauregui): RBBB, possibly lateral ST elevations, no need for further cardiac work-up nor testing in this setting. -off of pressors #GI - PEG tube in place - Family prefers J tube to decrease risk of aspiration. Will consider consulting surgery/IR after possible trach -continue with protonix 40 mg BID IV push. monitor with serial CBCs, transfuse PRN #Heme -Dark stool. H/o bloody stools for past few days. continue holding Lovenox. -s/p 1 unit of blood yesterday -Hgb/Hct increased to 9.5/28.1 #ID -CXR: Interval placement of right central with distal tip at level of SVC. Hazy Left basilar opacity suggestive of pleural effusion with atlectasis have not significantly changed. Right basilar patchy opacity is not significantly changed. -blood culture neg X2 (01/23), ucx neg (01/23) -sputum cx: pseudomonas aeruginosa & staph aureus. Pseudomonas sensitive to zosyn. -c/w zosyn 4.5 g IVPB Q6H (01/23) #Renal - BUN/Cr 11/0.4 today - UA 1+ Protein with trace ketones -3710.2 mL I's/2100 ml O's/ 1610.2 ml balance - [place] in place #FEN -D5 NS @ 100 ml/hr given pt is not receiving feeds -monitor lytes. phos repleted - feeds stopped 2/2 GI bleed #DVT PPX had dark blood in stool. continue holding Lovenox #Lines s/p Left chest tube (01/24) [place] (01/23) ETT (01/24), (01/30 s/p cardiac arrest) RUQ peg (patient presented to ED with it) Left IJ triple lumen (01/31) Removed. Right IJ triple lumen (02/09) #Dispo -maintain ICU -Family wants FULL code now -son Dr. Marj Kaplan: [phone] Visit type - Emergency Visit Emergency Visit: Yes ED Registration Date: 01/24/20 Care time: The patient presented to the Emergency Department on the above date and was hospitalized for further evaluation of their emergent condition. - New Patient This patient is new to me today: No - Critical Care Critical Care patient: No - Medication Review Med list reviewed for High Risk Meds patients 65 and older: Yes ATTENDING PHYSICIAN STATEMENT I saw and evaluated the patient. I reviewed the resident's note and discussed the case with the resident. I agree with the resident's findings and plan as documented. SUBJECTIVE: OBJECTIVE: ASSESSMENT AND PLAN:
--- NOTE | 2020-02-10 17:36 | PN.GI ---
GI Progress Note Subjective: GI NOte: NO overt bleeding and n fact no BM last night or today. Hb back to 9 after a unit of PRBC. - Objective Vital Signs: Vital Signs Temperature 97.8 F 02/10/20 16:00 Pulse Rate 49 L 02/10/20 16:00 Respiratory Rate 18 02/10/20 16:10 Blood Pressure 116/83 02/10/20 16:00 O2 Sat by Pulse Oximetry (%) 99 02/10/20 16:10 Laboratory Tests 02/08/20 02/09/20 02/09/20 06:00 05:15 22:00 Hgb 9.6 L 7.2 L 8.3 L 02/10/20 06:23 Hgb 9.5 L Constitutional: Other (sedated) ...Auscultate: Yes: Hypoactive Bowel Sounds ...Palpate: Yes: Soft, Other (nontender) Labs: CBC, BMP 02/10/20 06:23 02/10/20 06:23 INR, PTT INR 1.04 (0.83-1.09) 02/06/20 18:00 Assessment/Plan Impression: - Hematochezia due to ischemic colitis suffered during hypotension resolved. Plan: -- Serial CBCs and transfuse prn -- Continue PPI empirically -- [place] endoscopic and IR interventions for life threatening hemorrhage and after discussion with updated clinical status. -- If he survives then conversion to a J tube for feeding and preservation of the G tube will need to be reconsidered. Dr Osorio will be covering Problem List - Problems (1) Hematochezia Code(s): K92.1 - MELENA (2) Aspiration pneumonia due to regurgitated food Code(s): J69.0 - PNEUMONITIS DUE TO INHALATION OF FOOD AND VOMIT (3) Respiratory failure Code(s): J96.90 - RESPIRATORY FAILURE, UNSP, UNSP W HYPOXIA OR HYPERCAPNIA Qualifiers: Chronicity: acute Respiratory failure complication: hypoxia Qualified Code(s): J96.01 - Acute respiratory failure with hypoxia (4) BPH (benign prostatic hyperplasia) Code(s): N40.0 - BENIGN PROSTATIC HYPERPLASIA WITHOUT LOWER URINRY TRACT SYMP (5) Functional quadriplegia Code(s): R53.2 - FUNCTIONAL QUADRIPLEGIA (6) Gastric dysmotility Code(s): K31.89 - OTHER DISEASES OF STOMACH AND DUODENUM (7) Gastrostomy status Code(s): Z93.1 - GASTROSTOMY STATUS (8) Hypertension Code(s): I10 - ESSENTIAL (PRIMARY) HYPERTENSION (9) Parkinson disease Code(s): G20 - PARKINSON'S DISEASE (10) Sepsis Code(s): A41.9 - SEPSIS, UNSPECIFIED ORGANISM Qualifiers: Acute respiratory failure type: with hypoxia Severe sepsis shock status: without septic shock (11) Supranuclear palsy Code(s): G23.1 - PROGRESSIVE SUPRANUCLEAR OPHTHALMOPLEGIA
--- NOTE | 2020-02-10 19:01 | PN ---
Progress Note (short form) - Note Progress Note: Addendum EEG at the bedside done Two phases First 18 minutes of recording which showed no electric seziure and slow background with no asymmetry consistent with history Anoxia and poor prognosis. Second phase sedation stopped and patient was clinically shaking with no electric seizure again. 1 .Will speak to the son 2. Taper Versed 3. Continue the Klponpin 4. Supportive care Poor prognosis Mago Bashir MD Problem List - Problems (1) Parkinson disease Code(s): G20 - PARKINSON'S DISEASE (2) Cardiac arrest Code(s): I46.9 - CARDIAC ARREST, CAUSE UNSPECIFIED
[2020-02-10] MEDS: CHLORHEXIDINE GLUCONATE 4% CLEANSER FOR DECOLONIZATION TP SCH (21:23)
[2020-02-10] MEDS: MIDAZOLAM IN 0.9 % SOD.CHLORID 100 MG/100 ML PLAST..BAG IVPB SCH (22:32)
[2020-02-11] MEDS: ACETYLCYSTEINE 20% 200MG/ML 4 ML VIAL *FOR ORAL / INH USE ONLY NEB SCH ×6 (00:20→20:15)
[2020-02-11] MEDS: ALBUTEROL SO4 0.083% IH SOL 2.5 MG/3 ML VIAL.NEB. NEB PRN ×6 (00:21→20:15)
[2020-02-11] MEDS ORDERED: DEXTROSE 5%-WATER 100 ML IVPB ONE ×4 (02:28→20:41)
[2020-02-11] MEDS ORDERED: PIPERACILLIN/TAZOBACTAM 4.5 GM VIAL IVPB ONE ×4 (02:28→20:40)
[2020-02-11] MEDS: PIPERACILLIN/TAZOB 4.5 GM 4.5 GM in DEXTROSE 5%-WATER 100 ML IVPB SCH ×4 (02:33→20:45)
[2020-02-11] MEDS: methylPREDNISolone NA SUCC 40 MG/1 ML VIAL IVPUSH SCH ×3 (02:34→17:24)
[2020-02-11] MEDS: FENTANYL IVPB 500 MCG/100 ML BAG IVPB SCH ×3 (02:35→20:49)
[2020-02-11] MEDS: PROPOFOL 1,000,000 MCG/100 ML VIAL IVPB SCH (05:47)
[2020-02-11 06:00] LABS: ARTERIAL BLD GAS O2 SATURATION 96.6 mmHg (95-98); ARTERIAL BLOOD GAS BASE EXCESS 8.5 mmol/L (-2-2); ARTERIAL BLOOD GAS PO2 86.9 mmHg (80-100); ARTERIAL BLOOD GAS pH 7.423 (7.350-7.450)
[2020-02-11 06:01] LABS: ALLENS TEST POSITIVE
[2020-02-11 06:02] LABS: VENT MODE A/C; VENT RATE 18
[2020-02-11] MEDS: clonazePAM 2 MG TABLET GT SCH ×3 (06:14→22:29)
[2020-02-11] MEDS: CARBIDOPA/LEVODOPA 25/250 TABLET (FP) PO SCH ×6 (06:14→22:30)
[2020-02-11 06:46] LABS: EOS % 0.1 % (0-4.5); HEMATOCRIT 27.8 % (35.4-49); HEMOGLOBIN 9.4 GM/dL (11.7-16.9); LYMPH % 5.2 % (8-40); MCH 30.9 pg (25.7-33.7); MCHC 33.7 g/dl (32.0-35.9); MEAN CELL VOLUME 91.8 fl (80-96); MEAN PLT VOLUME 7.9 fl (7.5-11.1); MONO % 4.5 % (3.8-10.2); NEUT % 90.2 % (42.8-82.8); PLATELET COUNT 302 K/MM3 (134-434); RBC 3.03 M/mm3 (4.00-5.60); RDW 15.2 % (11.9-15.9); WHITE BLOOD COUNT 7.1 K/mm3 (4.0-10.0)
[2020-02-11 07:12] LABS: ALBUMIN 1.6 g/dl (3.4-5.0); ALK PHOS 62 U/L (45-117); ANION GAP 3 MMOL/L (8-16); BILIRUBIN,TOTAL 0.4 mg/dL (0.2-1); BLOOD UREA NITROGEN 8.1 mg/dL (7-18); CALCIUM 7.6 mg/dL (8.5-10.1); CHLORIDE 106 mmol/L (98-107); CO2 36 mmol/L (21-32); CREATININE 0.3 mg/dL (0.55-1.3); GLUCOSE,RANDOM 118 mg/dL (74-106); MAGNESIUM 1.9 mg/dL (1.8-2.4); PHOSPHOROUS 2.5 mg/dL (2.5-4.9); POTASSIUM 3.3 mmol/L (3.5-5.1); SGOT/AST 14 U/L (15-37); SGPT/ALT < 6 U/L (13-61); SODIUM 144 mmol/L (136-145); TOT PROT 4.6 g/dl (6.4-8.2)
[2020-02-11] MEDS ORDERED: PT OWN MED DRAWER 7, Y5N ONE (08:14)
[2020-02-11] MEDS: AMINO ACIDS/PROTEIN HYDROLYS 30 ML LIQUID.PKT PO SCH ×2 (08:33→16:54)
[2020-02-11] MEDS: DEXTROSE 5%-NORMAL SALINE 1,000 ML IV SCH (09:00)
--- NOTE | 2020-02-11 09:11 | PN ---
Progress Note (short form) - Note Progress Note: PULM/CCM SUBJECTIVE: Patient seen and examined in the ICU. 24Hrs" Persistent myoclonic jerks. EEG diffuse slowing, without sz Dr Bashir note states will speak with pts son about EEG hemodynamic stable Vital Signs Temp 98.8 F 02/11/20 08:00 Pulse 62 02/11/20 08:33 Resp 20 02/11/20 08:33 BP 133/87 02/11/20 08:00 Pulse Ox 97 02/11/20 08:33 Intake & Output 02/10/20 02/10/20 02/11/20 11:59 23:59 11:59 Intake Total 2661 1970 2103 Output Total 700 1000 1000 Balance 4483 916 2117 Weight 75.795 kg 76.929 kg Intake: IV 1611 1590 1803 D5-Ns - 1,000 ml @ 100 1099 1100 1317 mls/hr IV ASDIR AMRITA Rx#: [id number] DIPRIVAN - 1,000,000 mcg 197 220 194 In 100 ml @ 5 MCG/KG/MIN 2.449 mls/hr IVPB TITR AMRITA Rx#:[id number] MIDAZOLAM 100MG/100ML-0.9 91 90 97 %NACL 100 mg In 100 ml @ 1 MG/HR 1 mls/hr IVPB TITR [facility]ITA Rx#:[id number] SUBLIMAZE IVPB 500 mcg In 224 180 195 100 ml @ 5 MCG/HR 1 mls/ hr IVPB TITR AMRITA Rx#: [id number] IVPB 300 380 300 Packed Cells 750 Output: Urine 700 1000 1000 Merchant 700 1000 1000 Other: Voiding Method Indwelling Catheter Indwelling Catheter Indwelling Catheter Bowel Movement Yes No Yes: 1 Weight Measurement Method Built in [facility] Built in [facility] CBC, BMP 02/11/20 05:00 02/11/20 05:00 Active Medications Acetaminophen (Tylenol Oral Solution -) 650 mg GT Q4H PRN PRN Reason: FEVER Last Admin: 01/31/20 03:14 Dose: 650 mg Documented by: Acetylcysteine (Mucomyst 20 Oral / Inh Use Only*) 200 mg NEB RQ4H AMRITA Last Admin: 02/11/20 07:30 Dose: 200 mg Documented by: Albuterol Sulfate (Ventolin 0.083% Nebulizer Soln -) 1 amp NEB Q4H PRN PRN Reason: SHORT OF BREATH/WHEEZING Last Admin: 02/11/20 07:30 Dose: 1 amp Documented by: Amino Acids (Prosource No Carb Liquid Pkt) 30 ml PO BIDWM [facility] Last Admin: 02/11/20 08:33 Dose: 30 ml Documented by: Carbidopa/Levodopa (Sinemet 25/250 -) 1 each PO 1600,1900,2200 [facility] Last Admin: 02/10/20 22:33 Dose: 1 each Documented by: Carbidopa/Levodopa (Sinemet 25/250 -) 1 each PO 0700,1000,1300 [facility] Last Admin: 02/11/20 06:14 Dose: 1 each Documented by: Chlorhexidine Gluconate (Hibiclens For Decolonization -) 1 applic TP HS [facility] Last Admin: 02/10/20 21:23 Dose: 1 applic Documented by: Clonazepam (Klonopin -) 2 mg GT TID [facility] Last Admin: 02/11/20 06:14 Dose: 2 mg Documented by: Propofol (Diprivan -) 1,000,000 mcg in 100 mls @ 2.449 mls/hr IVPB TITR [facility]; Protocol Last Admin: 02/11/20 05:47 Dose: 40 mcg/kg/min, 19.595 mls/hr Documented by: Piperacillin Sod/Tazobactam (Sod 4.5 gm/ Dextrose) 100 mls @ 200 mls/hr IVPB Q6H-IV [facility]; Protocol Last Admin: 02/11/20 02:33 Dose: 200 mls/hr Documented by: Midazolam HCl (Midazolam 100mg/100ml-0.9%Nacl) 100 mg in 100 mls @ 1 mls/hr IVPB TITR [facility]; Protocol Last Admin: 02/10/20 22:32 Dose: 8 mg/hr, 8 mls/hr Documented by: Fentanyl (Sublimaze Ivpb) 500 mcg in 100 mls @ 1 mls/hr IVPB TITR [facility] Last Admin: 02/11/20 02:35 Dose: 80 mcg/hr, 16 mls/hr Documented by: Dextrose/Sodium Chloride (D5-Ns -) 1,000 mls @ 100 mls/hr IV ASDIR [facility] Last Admin: 02/10/20 23:00 Dose: 100 mls/hr Documented by: Methylprednisolone Sodium Succinate (Solu-Medrol -) 40 mg IVPUSH Q8H-IV [facility] Last Admin: 02/11/20 02:34 Dose: 40 mg Documented by: Pantoprazole Sodium (Protonix Iv) 40 mg IVPUSH BID [facility] Last Admin: 02/10/20 21:22 Dose: 40 mg Documented by: Sodium Chloride ([place] Nasal [place] -) 2 spray NS TID PRN PRN Reason: NASAL CONGESTION Tetrahydrozoline HCl (Visine -) 1 drop OU QID PRN PRN Reason: DRY EYES Last Admin: 02/10/20 14:13 Dose: 1 drop Documented by: Valproate Sodium (Depacon Injection -) 500 mg IVPB BID [facility] Last Admin: 02/10/20 21:22 Dose: 500 mg Documented by: Gen: intubated, myoclonic jerks Heart: RRR Lung: Vented, scattered rhonchi Abd: soft, +BS Ext: no edema ASSESSMENT AND PLAN: Acute Hypoxic and Hypercapneic Respiratory Failure s/p Cardiopulmonary Arrest Suspect Anoxic Brain Injury Pneumonia suspect Aspiration Sepsis Lactic Acidosis r/o [place] Parkinsons Supranuclear Palsy - AC Mode of vent , not candidate for weaning - klonopin - ABX per ID - monitor urine output, creatinine - Enteral feeds - DVT/GI prophylaxis - continue ICU monitoring - poor overall prognosis, continue discussions regarding goals of care, advanced directives - will need tracheostomy pending family wishes, however Tracheostomy in this patient would not be an appropriate intervention given his overall condition/outcome - recommend comfort measures with compassionate extubation
[2020-02-11] MEDS: VALPROATE SODIUM 500 MG/5 ML VIAL IVPB SCH ×2 (09:29→22:29)
[2020-02-11] MEDS: PANTOPRAZOLE SODIUM 40 MG VIAL IVPUSH SCH ×2 (09:30→22:29)
--- NOTE | 2020-02-11 11:59 | PN ---
Progress Note, Physician History of Present Illness: Acute Hypoxic and Hypercapneic Respiratory Failure Pneumonia suspect Aspiration Sepsis Lactic Acidosis Parkinsons Supranuclear Palsy History of Present Illness: 4 year old non-verbal male with PMH of Parkinson's disease with Supranuclear palsy with PEG tube placed. Last admission at [facility] was in November for Aspiration PNA. Pt unable to communicate and family not present at bedside. As per ER staff, pt was with AMS earlier today, pt is non verbal at baseline but is able to communicate minimally using hand gestures. EMS was called and pt was found to be hypoxic in the 80s on home oxygen of 2L, which improved to 90s after Ambu bagging. In the ER, he was sedated and intubated, septic workup initiated, and admitted to the ICU. In the ER pt again began to desat, CXR showed massive left sided effusion/infiltrate and chest tube was palced with improvement in SpO2. Pt extubated on 01/28/20, re-intubated s/p Cardiac arrest on 01/31/20 Seen by palliative medicine-Family wants everything done Off pressors + myoclonus off sedation and even on increased dosage of Clonazepam Feeds on hold CT head-not consistent with anoxic brain damage. Awaiting EEG results Revaluated by neurology last evening - Current Medication List Current Medications: Active Medications Acetaminophen (Tylenol Oral Solution -) 650 mg GT Q4H PRN PRN Reason: FEVER Last Admin: 01/31/20 03:14 Dose: 650 mg Documented by: Acetylcysteine (Mucomyst 20 Oral / Inh Use Only*) 200 mg NEB RQ4H [facility] Last Admin: 02/11/20 11:36 Dose: 200 mg Documented by: Albuterol Sulfate (Ventolin 0.083% Nebulizer Soln -) 1 amp NEB Q4H PRN PRN Reason: SHORT OF BREATH/WHEEZING Last Admin: 02/11/20 11:37 Dose: 1 amp Documented by: Amino Acids (Prosource No Carb Liquid Pkt) 30 ml PO BIDWM [facility] Last Admin: 02/11/20 08:33 Dose: 30 ml Documented by: Carbidopa/Levodopa (Sinemet 25/250 -) 1 each PO 1600,1900,2200 [facility] Last Admin: 02/10/20 22:33 Dose: 1 each Documented by: Carbidopa/Levodopa (Sinemet 25/250 -) 1 each PO 0700,1000,1300 [facility] Last Admin: 02/11/20 09:30 Dose: 1 each Documented by: Chlorhexidine Gluconate (Hibiclens For Decolonization -) 1 applic TP HS [facility] Last Admin: 02/10/20 21:23 Dose: 1 applic Documented by: Clonazepam (Klonopin -) 2 mg GT TID [facility] Last Admin: 02/11/20 06:14 Dose: 2 mg Documented by: Propofol (Diprivan -) 1,000,000 mcg in 100 mls @ 2.449 mls/hr IVPB TITR [facility]; Protocol Last Admin: 02/11/20 05:47 Dose: 40 mcg/kg/min, 19.595 mls/hr Documented by: Piperacillin Sod/Tazobactam (Sod 4.5 gm/ Dextrose) 100 mls @ 200 mls/hr IVPB Q6H-IV [facility]; Protocol Last Admin: 02/11/20 09:00 Dose: 200 mls/hr Documented by: Midazolam HCl (Midazolam 100mg/100ml-0.9%Nacl) 100 mg in 100 mls @ 1 mls/hr IVPB TITR [facility]; Protocol Last Admin: 02/10/20 22:32 Dose: 8 mg/hr, 8 mls/hr Documented by: Fentanyl (Sublimaze Ivpb) 500 mcg in 100 mls @ 1 mls/hr IVPB TITR [facility] Last Admin: 02/11/20 02:35 Dose: 80 mcg/hr, 16 mls/hr Documented by: Dextrose/Sodium Chloride (D5-Ns -) 1,000 mls @ 100 mls/hr IV ASDIR [facility] Last Admin: 02/10/20 23:00 Dose: 100 mls/hr Documented by: Methylprednisolone Sodium Succinate (Solu-Medrol -) 40 mg IVPUSH Q8H-IV [facility] Last Admin: 02/11/20 09:30 Dose: 40 mg Documented by: Pantoprazole Sodium (Protonix Iv) 40 mg IVPUSH BID [facility] Last Admin: 02/11/20 09:30 Dose: 40 mg Documented by: Sodium Chloride ([place] Nasal [place] -) 2 spray NS TID PRN PRN Reason: NASAL CONGESTION Tetrahydrozoline HCl (Visine -) 1 drop OU QID PRN PRN Reason: DRY EYES Last Admin: 02/10/20 14:13 Dose: 1 drop Documented by: Valproate Sodium (Depacon Injection -) 500 mg IVPB BID [facility] Last Admin: 02/11/20 09:29 Dose: 500 mg Documented by: - Objective Vital Signs: Vital Signs Temperature 97.2 F L 02/11/20 10:00 Pulse Rate 57 L 02/11/20 10:00 Respiratory Rate 21 H 02/11/20 11:35 Blood Pressure 124/68 02/11/20 10:00 O2 Sat by Pulse Oximetry (%) 100 02/11/20 11:35 Cardiovascular: Yes: S1, S2 Respiratory: Yes: Mechanically Ventilated Gastrointestinal: Yes: Normal Bowel Sounds, Soft Labs: CBC, BMP 02/11/20 05:00 02/11/20 05:00 INR, PTT INR 1.04 (0.83-1.09) 02/06/20 18:00 Problem List - Problems (1) Respiratory failure Code(s): J96.90 - RESPIRATORY FAILURE, UNSP, UNSP W HYPOXIA OR HYPERCAPNIA Qualifiers: Chronicity: acute Respiratory failure complication: hypoxia Qualified Code(s): J96.01 - Acute respiratory failure with hypoxia (2) Pneumonia Code(s): J18.9 - PNEUMONIA, UNSPECIFIED ORGANISM Qualifiers: Pneumonia type: due to unspecified organism Laterality: bilateral Lung location: unspecified part of lung Qualified Code(s): J18.9 - Pneumonia, unspecified organism (3) Parkinson disease Code(s): G20 - PARKINSON'S DISEASE (4) Sepsis Code(s): A41.9 - SEPSIS, UNSPECIFIED ORGANISM Qualifiers: Acute respiratory failure type: with hypoxia Severe sepsis shock status: without septic shock Assessment/Plan - Problems (1) Pneumonia Assessment/Plan: -recurrent -ID consult -IV Zosyn -IV medrol -Serial CXR's -Pulmonary on board -Bronchodilators -Mech vent -COVID 19 PCR negative -Cultures: Microbiology 01/27/20 07:00 Sputum - Endotrachea Suction/Ventilator Gram Stain - Final 01/25/20 14:00 Sputum - Endotrachea Suction/Ventilator Gram Stain - Final 01/25/20 14:00 Sputum - Endotrachea Suction/Ventilator Sputum Culture - Final Pseudomonas Aeruginosa Staphylococcus Aureus 01/24/20 23:05 Blood - Peripheral Venous Blood Culture - Preliminary NO GROWTH OBTAINED AFTER 48 HOURS, INCUBATION TO CONTINUE FOR 3 DAYS. 01/24/20 23:05 Blood - Peripheral Venous Blood Culture - Preliminary NO GROWTH OBTAINED AFTER 48 HOURS, INCUBATION TO CONTINUE FOR 3 DAYS. 01/24/20 23:15 Urine - Urine - Catheterized Urine Culture - Final NO GROWTH OBTAINED Problems reviewed: Yes Code(s): J18.9 - PNEUMONIA, UNSPECIFIED ORGANISM Qualifiers: Pneumonia type: due to unspecified organism Laterality: bilateral Lung location: unspecified part of lung Qualified Code(s): J18.9 - Pneumonia, unspecified organism (2) Respiratory failure Assessment/Plan: as above -CXR worse-progress opacification of left hemithorax -trach? Consult ENT -S/p chest tube for pleural effusion/infiltrate -Vent AC: Rate 14, TV 400, FIO2 60%, PEEP 5, Pplat 25. -Attempted weaning, patient began to have myoclonus off sedation. -Mucomyst, Ventolin, Solumedrol 40 Q8H Problems reviewed: Yes Code(s): J96.90 - RESPIRATORY FAILURE, UNSP, UNSP W HYPOXIA OR HYPERCAPNIA Qualifiers: Chronicity: acute Respiratory failure complication: hypoxia Qualified Code(s): J96.01 - Acute respiratory failure with hypoxia (3) Functional quadriplegia Problems reviewed: Yes Code(s): R53.2 - FUNCTIONAL QUADRIPLEGIA (4) Parkinson disease Assessment/Plan: -Continue Sinemet Problems reviewed: Yes Code(s): G20 - PARKINSON'S DISEASE (5) Supranuclear palsy Assessment/Plan: -Seen by neurology -CT head (02/01): Mild chronic microvascular ischemic changes, possible 1.4cm focal infarct in posterior fossa -CT Head (02/02): Previously identified focal attenuation in cerebellum not definitely identified Problems reviewed: Yes Code(s): G23.1 - PROGRESSIVE SUPRANUCLEAR OPHTHALMOPLEGIA (6) Cardiac arrest Assessment/Plan: -re-intubated Problems reviewed: Yes Code(s): I46.9 - CARDIAC ARREST, CAUSE UNSPECIFIED (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 -Increased klonopin from 1 mg BID to 2 mg Q8H for myoclonus Lans Santi syndrome -Repeat CT head shows no change, no anoxic brain injury -Await EEG results -Neurology input would take the lead Problems reviewed: Yes Code(s): G25.3 - MYOCLONUS
[2020-02-11 13:24] LABS: ANISOCYTOSIS 1+; MACROCYTOSIS 0; PLATELET ESTIMATE NORMAL
--- NOTE | 2020-02-11 14:29 | PN ---
Progress Note, Physician History of Present Illness: continues to have jerks neurology on case intubated - Current Medication List Current Medications: Active Medications Acetaminophen (Tylenol Oral Solution -) 650 mg GT Q4H PRN PRN Reason: FEVER Last Admin: 01/31/20 03:14 Dose: 650 mg Documented by: Acetylcysteine (Mucomyst 20 Oral / Inh Use Only*) 200 mg NEB RQ4H [facility] Last Admin: 02/11/20 11:36 Dose: 200 mg Documented by: Albuterol Sulfate (Ventolin 0.083% Nebulizer Soln -) 1 amp NEB Q4H PRN PRN Reason: SHORT OF BREATH/WHEEZING Last Admin: 02/11/20 11:37 Dose: 1 amp Documented by: Amino Acids (Prosource No Carb Liquid Pkt) 30 ml PO BIDWM [facility] Last Admin: 02/11/20 08:33 Dose: 30 ml Documented by: Carbidopa/Levodopa (Sinemet 25/250 -) 1 each PO 1600,1900,2200 [facility] Last Admin: 02/10/20 22:33 Dose: 1 each Documented by: Carbidopa/Levodopa (Sinemet 25/250 -) 1 each PO 0700,1000,1300 [facility] Last Admin: 02/11/20 13:03 Dose: 1 each Documented by: Chlorhexidine Gluconate (Hibiclens For Decolonization -) 1 applic TP HS [facility] Last Admin: 02/10/20 21:23 Dose: 1 applic Documented by: Clonazepam (Klonopin -) 2 mg GT TID [facility] Last Admin: 02/11/20 13:28 Dose: 2 mg Documented by: Propofol (Diprivan -) 1,000,000 mcg in 100 mls @ 2.449 mls/hr IVPB TITR [facility]; Protocol Last Titration: 02/11/20 13:54 Dose: 40 mcg/kg/min, 19.595 mls/hr Documented by: Piperacillin Sod/Tazobactam (Sod 4.5 gm/ Dextrose) 100 mls @ 200 mls/hr IVPB Q6H-IV [facility]; Protocol Last Admin: 02/11/20 09:00 Dose: 200 mls/hr Documented by: Midazolam HCl (Midazolam 100mg/100ml-0.9%Nacl) 100 mg in 100 mls @ 1 mls/hr IVPB TITR [facility]; Protocol Last Infusion: 02/11/20 13:55 Dose: 8 mg/hr, 8 mls/hr Documented by: Fentanyl (Sublimaze Ivpb) 500 mcg in 100 mls @ 1 mls/hr IVPB TITR [facility] Last Admin: 02/11/20 14:25 Dose: 80 mcg/hr, 16 mls/hr Documented by: Dextrose/Sodium Chloride (D5-Ns -) 1,000 mls @ 100 mls/hr IV ASDIR [facility] Last Admin: 02/11/20 09:00 Dose: 100 mls/hr Documented by: Potassium Chloride (Potassium Chloride 10 Meq Premix Ivpb -) 10 meq in 100 mls @ 100 mls/hr IVPB Q60M [facility] Stop: 02/11/20 16:29 Methylprednisolone Sodium Succinate (Solu-Medrol -) 40 mg IVPUSH Q8H-IV [facility] Last Admin: 02/11/20 09:30 Dose: 40 mg Documented by: Pantoprazole Sodium (Protonix Iv) 40 mg IVPUSH BID [facility] Last Admin: 02/11/20 09:30 Dose: 40 mg Documented by: Sodium Chloride ([place] Nasal [place] -) 2 spray NS TID PRN PRN Reason: NASAL CONGESTION Tetrahydrozoline HCl (Visine -) 1 drop OU QID PRN PRN Reason: DRY EYES Last Admin: 02/10/20 14:13 Dose: 1 drop Documented by: Valproate Sodium (Depacon Injection -) 500 mg IVPB BID [facility] Last Admin: 02/11/20 09:29 Dose: 500 mg Documented by: - Objective Vital Signs: Vital Signs Temperature 96.3 F L 02/11/20 14:00 Pulse Rate 57 L 02/11/20 14:00 Respiratory Rate 18 02/11/20 14:00 Blood Pressure 120/66 02/11/20 14:00 O2 Sat by Pulse Oximetry (%) 97 02/11/20 14:00 Constitutional: Yes: Other Cardiovascular: Yes: S1, S2 Respiratory: Yes: Intubated, Mechanically Ventilated Gastrointestinal: Yes: Normal Bowel Sounds, Soft Neurological: Yes: Seizure, Other Psychiatric: Yes: Other Labs: CBC, BMP 02/11/20 05:00 02/11/20 05:00 INR, PTT INR 1.04 (0.83-1.09) 02/06/20 18:00 - ....Imaging Chest X-ray: Report Reviewed, Image Reviewed Assessment/Plan this patient with multiple medical issues coming in with ams and resp failure and now intubated Acute Hypoxic and Hypercapneic Respiratory Failure Pneumonia suspect Aspiration Sepsis Lactic Acidosis Parkinsons Supranuclear Palsy cardiac arrest seizures plan continue icu care iv abx organisms noted resp support close watch awaiting final plan cc 37 min
[2020-02-11] MEDS: KCL 10 MEQ IVPB 10 MEQ/100 ML INFUS.BAG IVPB SCH ×2 (16:10→16:53)
[2020-02-11] MEDS: MIDAZOLAM IN 0.9 % SOD.CHLORID 100 MG/100 ML PLAST..BAG IVPB SCH (22:28)
[2020-02-11] MEDS: CHLORHEXIDINE GLUCONATE 4% CLEANSER FOR DECOLONIZATION TP SCH (22:29)
[2020-02-12] MEDS: ACETYLCYSTEINE 20% 200MG/ML 4 ML VIAL *FOR ORAL / INH USE ONLY NEB SCH ×6 (00:25→20:10)
[2020-02-12] MEDS: ALBUTEROL SO4 0.083% IH SOL 2.5 MG/3 ML VIAL.NEB. NEB PRN ×6 (00:25→20:10)
[2020-02-12] MEDS ORDERED: DEXTROSE 5%-WATER 100 ML IVPB ONE ×4 (02:42→20:24)
[2020-02-12] MEDS ORDERED: PIPERACILLIN/TAZOBACTAM 4.5 GM VIAL IVPB ONE ×4 (02:42→20:24)
[2020-02-12] MEDS: methylPREDNISolone NA SUCC 40 MG/1 ML VIAL IVPUSH SCH ×3 (02:46→17:13)
[2020-02-12] MEDS: FENTANYL IVPB 500 MCG/100 ML BAG IVPB SCH ×2 (02:47→15:27)
[2020-02-12] MEDS: PIPERACILLIN/TAZOB 4.5 GM 4.5 GM in DEXTROSE 5%-WATER 100 ML IVPB SCH ×4 (02:47→21:10)
[2020-02-12] MEDS: clonazePAM 2 MG TABLET GT SCH ×3 (06:14→21:10)
[2020-02-12] MEDS: PROPOFOL 1,000,000 MCG/100 ML VIAL IVPB SCH ×2 (06:14)
[2020-02-12] MEDS: CARBIDOPA/LEVODOPA 25/250 TABLET (FP) PO SCH ×6 (06:15→21:10)
[2020-02-12 06:54] LABS: BASO % 0.1 % (0-2.0); EOS % 0.1 % (0-4.5); HEMATOCRIT 28.5 % (35.4-49); HEMOGLOBIN 9.8 GM/dL (11.7-16.9); MCH 31.3 pg (25.7-33.7); MCHC 34.3 g/dl (32.0-35.9); MEAN CELL VOLUME 91.1 fl (80-96); MEAN PLT VOLUME 7.9 fl (7.5-11.1); MONO % 4.3 % (3.8-10.2); NEUT % 85.5 % (42.8-82.8); PLATELET COUNT 309 K/MM3 (134-434); RBC 3.12 M/mm3 (4.00-5.60); RDW 15.3 % (11.9-15.9); WHITE BLOOD COUNT 8.3 K/mm3 (4.0-10.0)
[2020-02-12 07:21] LABS: ALBUMIN 1.6 g/dl (3.4-5.0); ALK PHOS 68 U/L (45-117); ANION GAP 4 MMOL/L (8-16); BILIRUBIN,TOTAL 0.9 mg/dL (0.2-1); BLOOD UREA NITROGEN 6.4 mg/dL (7-18); CALCIUM 7.4 mg/dL (8.5-10.1); CHLORIDE 106 mmol/L (98-107); CO2 36 mmol/L (21-32); CREATININE 0.3 mg/dL (0.55-1.3); GLUCOSE,RANDOM 114 mg/dL (74-106); SGOT/AST 15 U/L (15-37); SGPT/ALT < 6 U/L (13-61); SODIUM 145 mmol/L (136-145); TOT PROT 4.8 g/dl (6.4-8.2)
[2020-02-12] MEDS: KCL 10 MEQ IVPB 10 MEQ/100 ML INFUS.BAG IVPB SCH ×3 (08:40→11:15)
[2020-02-12] MEDS: AMINO ACIDS/PROTEIN HYDROLYS 30 ML LIQUID.PKT PO SCH ×2 (08:41→17:13)
--- NOTE | 2020-02-12 08:52 | PN ---
Progress Note, Physician - Current Medication List Current Medications: Active Medications Acetaminophen (Tylenol Oral Solution -) 650 mg GT Q4H PRN PRN Reason: FEVER Last Admin: 01/31/20 03:14 Dose: 650 mg Documented by: Acetylcysteine (Mucomyst 20 Oral / Inh Use Only*) 200 mg NEB RQ4H [facility] Last Admin: 02/12/20 07:30 Dose: 200 mg Documented by: Albuterol Sulfate (Ventolin 0.083% Nebulizer Soln -) 1 amp NEB Q4H PRN PRN Reason: SHORT OF BREATH/WHEEZING Last Admin: 02/12/20 07:30 Dose: 1 amp Documented by: Amino Acids (Prosource No Carb Liquid Pkt) 30 ml PO BIDWM [facility] Last Admin: 02/12/20 08:41 Dose: 30 ml Documented by: Carbidopa/Levodopa (Sinemet 25/250 -) 1 each PO 1600,1900,2200 [facility] Last Admin: 02/11/20 22:30 Dose: 1 each Documented by: Carbidopa/Levodopa (Sinemet 25/250 -) 1 each PO 0700,1000,1300 [facility] Last Admin: 02/12/20 06:15 Dose: 1 each Documented by: Chlorhexidine Gluconate (Hibiclens For Decolonization -) 1 applic TP HS [facility] Last Admin: 02/11/20 22:29 Dose: 1 applic Documented by: Clonazepam (Klonopin -) 2 mg GT TID [facility] Last Admin: 02/12/20 06:14 Dose: 2 mg Documented by: Propofol (Diprivan -) 1,000,000 mcg in 100 mls @ 2.449 mls/hr IVPB TITR [facility]; Protocol Last Admin: 02/12/20 06:14 Dose: 50 mcg/kg/min, 24.494 mls/hr Documented by: Piperacillin Sod/Tazobactam (Sod 4.5 gm/ Dextrose) 100 mls @ 200 mls/hr IVPB Q6H-IV [facility]; Protocol Last Admin: 02/12/20 08:41 Dose: 200 mls/hr Documented by: Midazolam HCl (Midazolam 100mg/100ml-0.9%Nacl) 100 mg in 100 mls @ 1 mls/hr IVPB TITR [facility]; Protocol Last Infusion: 02/12/20 08:44 Dose: 7 mg/hr, 7 mls/hr Documented by: Fentanyl (Sublimaze Ivpb) 500 mcg in 100 mls @ 1 mls/hr IVPB TITR [facility] Last Admin: 02/12/20 02:47 Dose: 80 mcg/hr, 16 mls/hr Documented by: Dextrose/Sodium Chloride (D5-Ns -) 1,000 mls @ 100 mls/hr IV ASDIR [facility] Last Admin: 02/11/20 09:00 Dose: 100 mls/hr Documented by: Potassium Chloride (Potassium Chloride 10 Meq Premix Ivpb -) 10 meq in 100 mls @ 100 mls/hr IVPB Q60M [facility] Stop: 02/12/20 10:59 Last Admin: 02/12/20 08:40 Dose: 100 mls/hr Documented by: Methylprednisolone Sodium Succinate (Solu-Medrol -) 40 mg IVPUSH Q8H-IV [facility] Last Admin: 02/12/20 02:46 Dose: 40 mg Documented by: Pantoprazole Sodium (Protonix Iv) 40 mg IVPUSH BID [facility] Last Admin: 02/11/20 22:29 Dose: 40 mg Documented by: Sodium Chloride ([place] Nasal [place] -) 2 spray NS TID PRN PRN Reason: NASAL CONGESTION Tetrahydrozoline HCl (Visine -) 1 drop OU QID PRN PRN Reason: DRY EYES Last Admin: 02/10/20 14:13 Dose: 1 drop Documented by: Valproate Sodium (Depacon Injection -) 500 mg IVPB BID [facility] Last Admin: 02/11/20 22:29 Dose: 500 mg Documented by: - Objective Vital Signs: Vital Signs Temperature 98.3 F 02/12/20 08:00 Pulse Rate 63 02/12/20 08:15 Respiratory Rate 20 02/12/20 08:15 Blood Pressure 123/70 02/12/20 08:00 O2 Sat by Pulse Oximetry (%) 100 02/12/20 08:15 Labs: CBC, BMP 02/12/20 05:00 02/12/20 05:00 INR, PTT INR 1.04 (0.83-1.09) 02/06/20 18:00
[2020-02-12] MEDS: PANTOPRAZOLE SODIUM 40 MG VIAL IVPUSH SCH ×2 (09:36→21:10)
[2020-02-12] MEDS: VALPROATE SODIUM 500 MG/5 ML VIAL IVPB SCH ×2 (09:36→21:10)
--- NOTE | 2020-02-12 10:46 | PN ---
Progress Note, Physician - Current Medication List Current Medications: Active Medications Acetaminophen (Tylenol Oral Solution -) 650 mg GT Q4H PRN PRN Reason: FEVER Last Admin: 01/31/20 03:14 Dose: 650 mg Documented by: Acetylcysteine (Mucomyst 20 Oral / Inh Use Only*) 200 mg NEB RQ4H [facility] Last Admin: 02/12/20 07:30 Dose: 200 mg Documented by: Albuterol Sulfate (Ventolin 0.083% Nebulizer Soln -) 1 amp NEB Q4H PRN PRN Reason: SHORT OF BREATH/WHEEZING Last Admin: 02/12/20 07:30 Dose: 1 amp Documented by: Amino Acids (Prosource No Carb Liquid Pkt) 30 ml PO BIDWM [facility] Last Admin: 02/12/20 08:41 Dose: 30 ml Documented by: Carbidopa/Levodopa (Sinemet 25/250 -) 1 each PO 1600,1900,2200 [facility] Last Admin: 02/11/20 22:30 Dose: 1 each Documented by: Carbidopa/Levodopa (Sinemet 25/250 -) 1 each PO 0700,1000,1300 [facility] Last Admin: 02/12/20 09:36 Dose: 1 each Documented by: Chlorhexidine Gluconate (Hibiclens For Decolonization -) 1 applic TP HS [facility] Last Admin: 02/11/20 22:29 Dose: 1 applic Documented by: Clonazepam (Klonopin -) 2 mg GT TID [facility] Last Admin: 02/12/20 06:14 Dose: 2 mg Documented by: Propofol (Diprivan -) 1,000,000 mcg in 100 mls @ 2.449 mls/hr IVPB TITR [facility]; Protocol Last Admin: 02/12/20 06:14 Dose: 50 mcg/kg/min, 24.494 mls/hr Documented by: Piperacillin Sod/Tazobactam (Sod 4.5 gm/ Dextrose) 100 mls @ 200 mls/hr IVPB Q6H-IV [facility]; Protocol Last Admin: 02/12/20 08:41 Dose: 200 mls/hr Documented by: Midazolam HCl (Midazolam 100mg/100ml-0.9%Nacl) 100 mg in 100 mls @ 1 mls/hr IVPB TITR [facility]; Protocol Last Infusion: 02/12/20 08:44 Dose: 7 mg/hr, 7 mls/hr Documented by: Fentanyl (Sublimaze Ivpb) 500 mcg in 100 mls @ 1 mls/hr IVPB TITR [facility] Last Admin: 02/12/20 02:47 Dose: 80 mcg/hr, 16 mls/hr Documented by: Dextrose/Sodium Chloride (D5-Ns -) 1,000 mls @ 100 mls/hr IV ASDIR [facility] Last Admin: 02/11/20 09:00 Dose: 100 mls/hr Documented by: Potassium Chloride (Potassium Chloride 10 Meq Premix Ivpb -) 10 meq in 100 mls @ 100 mls/hr IVPB Q60M [facility] Stop: 02/12/20 10:59 Last Admin: 02/12/20 09:43 Dose: 100 mls/hr Documented by: Methylprednisolone Sodium Succinate (Solu-Medrol -) 40 mg IVPUSH Q8H-IV [facility] Last Admin: 02/12/20 09:36 Dose: 40 mg Documented by: Pantoprazole Sodium (Protonix Iv) 40 mg IVPUSH BID [facility] Last Admin: 02/12/20 09:36 Dose: 40 mg Documented by: Sodium Chloride ([place] Nasal [place] -) 2 spray NS TID PRN PRN Reason: NASAL CONGESTION Tetrahydrozoline HCl (Visine -) 1 drop OU QID PRN PRN Reason: DRY EYES Last Admin: 02/10/20 14:13 Dose: 1 drop Documented by: Valproate Sodium (Depacon Injection -) 500 mg IVPB BID [facility] Last Admin: 02/12/20 09:36 Dose: 500 mg Documented by: - Objective Vital Signs: Vital Signs Temperature 98.3 F 02/12/20 08:00 Pulse Rate 63 02/12/20 08:15 Respiratory Rate 20 02/12/20 08:15 Blood Pressure 123/70 02/12/20 08:00 O2 Sat by Pulse Oximetry (%) 100 02/12/20 08:15 Cardiovascular: Yes: S1, S2 Respiratory: Yes: Mechanically Ventilated Labs: CBC, BMP 02/12/20 05:00 02/12/20 05:00 INR, PTT INR 1.04 (0.83-1.09) 02/06/20 18:00 Problem List - Problems (1) Respiratory failure Code(s): J96.90 - RESPIRATORY FAILURE, UNSP, UNSP W HYPOXIA OR HYPERCAPNIA Qualifiers: Chronicity: acute Respiratory failure complication: hypoxia Qualified Code(s): J96.01 - Acute respiratory failure with hypoxia (2) Pneumonia Code(s): J18.9 - PNEUMONIA, UNSPECIFIED ORGANISM Qualifiers: Pneumonia type: due to unspecified organism Laterality: bilateral Lung location: unspecified part of lung Qualified Code(s): J18.9 - Pneumonia, unspecified organism (3) Parkinson disease Code(s): G20 - PARKINSON'S DISEASE (4) Sepsis Code(s): A41.9 - SEPSIS, UNSPECIFIED ORGANISM Qualifiers: Acute respiratory failure type: with hypoxia Severe sepsis shock status: without septic shock Assessment/Plan - Problems (1) Pneumonia Assessment/Plan: -recurrent -ID consult -IV Zosyn -IV medrol -Serial CXR's -Pulmonary on board -Bronchodilators -Mech vent -COVID 19 PCR negative -Cultures: Microbiology 01/27/20 07:00 Sputum - Endotrachea Suction/Ventilator Gram Stain - Final 01/25/20 14:00 Sputum - Endotrachea Suction/Ventilator Gram Stain - Final 01/25/20 14:00 Sputum - Endotrachea Suction/Ventilator Sputum Culture - Final Pseudomonas Aeruginosa Staphylococcus Aureus 01/24/20 23:05 Blood - Peripheral Venous Blood Culture - Preliminary NO GROWTH OBTAINED AFTER 48 HOURS, INCUBATION TO CONTINUE FOR 3 DAYS. 01/24/20 23:05 Blood - Peripheral Venous Blood Culture - Preliminary NO GROWTH OBTAINED AFTER 48 HOURS, INCUBATION TO CONTINUE FOR 3 DAYS. 01/24/20 23:15 Urine - Urine - Catheterized Urine Culture - Final NO GROWTH OBTAINED Problems reviewed: Yes Code(s): J18.9 - PNEUMONIA, UNSPECIFIED ORGANISM Qualifiers: Pneumonia type: due to unspecified organism Laterality: bilateral Lung location: unspecified part of lung Qualified Code(s): J18.9 - Pneumonia, unspecified organism (2) Respiratory failure Assessment/Plan: as above -CXR worse-progress opacification of left hemithorax -trach? Consult ENT -S/p chest tube for pleural effusion/infiltrate -Vent AC: Rate 14, TV 400, FIO2 60%, PEEP 5, Pplat 25. -Attempted weaning, patient began to have myoclonus off sedation. -Mucomyst, Ventolin, Solumedrol 40 Q8H Problems reviewed: Yes Code(s): J96.90 - RESPIRATORY FAILURE, UNSP, UNSP W HYPOXIA OR HYPERCAPNIA Qualifiers: Chronicity: acute Respiratory failure complication: hypoxia Qualified Code(s): J96.01 - Acute respiratory failure with hypoxia (3) Functional quadriplegia Problems reviewed: Yes Code(s): R53.2 - FUNCTIONAL QUADRIPLEGIA (4) Parkinson disease Assessment/Plan: -Continue Sinemet Problems reviewed: Yes Code(s): G20 - PARKINSON'S DISEASE (5) Supranuclear palsy Assessment/Plan: -Seen by neurology -CT head (02/01): Mild chronic microvascular ischemic changes, possible 1.4cm focal infarct in posterior fossa -CT Head (02/02): Previously identified focal attenuation in cerebellum not def initely identified Problems reviewed: Yes Code(s): G23.1 - PROGRESSIVE SUPRANUCLEAR OPHTHALMOPLEGIA (6) Cardiac arrest Assessment/Plan: -re-intubated Problems reviewed: Yes Code(s): I46.9 - CARDIAC ARREST, CAUSE UNSPECIFIED (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 -Increased klonopin from 1 mg BID to 2 mg Q8H for myoclonus Lans Santi syndrome -Repeat CT head shows no change, no anoxic brain injury -Await EEG results -Neurology input would take the lead Problems reviewed: Yes Code(s): G25.3 - MYOCLONUS
--- NOTE | 2020-02-12 11:01 | PN ---
Progress Note (short form) - Note Progress Note: PULM/CCM SUBJECTIVE: Patient seen and examined in the ICU. remains intubated, sedated on propofol, versed and fentanyl, RASS-4. Hemodynamic stable Vent: AC 18/400/50% /+7, Pplat 22 Vital Signs Period Temp Pulse Resp BP Sys/Villegas Pulse Ox Last 24 Hr 95.5 F-98.3 F 54-80 10-23 103-149/57-76 97-100 Intake & Output 02/09/20 02/10/20 02/11/20 02/12/20 23:59 23:59 23:59 23:59 Intake Total 3710.2 4631 3424 2074 Output Total 2100 1700 3000 4400 Balance 1610.2 2931 424 -2326 Weight 74.253 kg 75.795 kg 76.929 kg 74.752 kg CBC, BMP 02/12/20 05:00 02/12/20 05:00 Active Medications Acetaminophen (Tylenol Oral Solution -) 650 mg GT Q4H PRN PRN Reason: FEVER Last Admin: 01/31/20 03:14 Dose: 650 mg Documented by: Acetylcysteine (Mucomyst 20 Oral / Inh Use Only*) 200 mg NEB RQ4H [facility] Last Admin: 02/12/20 07:30 Dose: 200 mg Documented by: Albuterol Sulfate (Ventolin 0.083% Nebulizer Soln -) 1 amp NEB Q4H PRN PRN Reason: SHORT OF BREATH/WHEEZING Last Admin: 02/12/20 07:30 Dose: 1 amp Documented by: Amino Acids (Prosource No Carb Liquid Pkt) 30 ml PO BIDWM [facility] Last Admin: 02/12/20 08:41 Dose: 30 ml Documented by: Carbidopa/Levodopa (Sinemet 25/250 -) 1 each PO 1600,1900,2200 [facility] Last Admin: 02/11/20 22:30 Dose: 1 each Documented by: Carbidopa/Levodopa (Sinemet 25/250 -) 1 each PO 0700,1000,1300 [facility] Last Admin: 02/12/20 09:36 Dose: 1 each Documented by: Chlorhexidine Gluconate (Hibiclens For Decolonization -) 1 applic TP HS [facility] Last Admin: 02/11/20 22:29 Dose: 1 applic Documented by: Clonazepam (Klonopin -) 2 mg GT TID [facility] Last Admin: 02/12/20 06:14 Dose: 2 mg Documented by: Propofol (Diprivan -) 1,000,000 mcg in 100 mls @ 2.449 mls/hr IVPB TITR [facility]; Protocol Last Admin: 02/12/20 06:14 Dose: 50 mcg/kg/min, 24.494 mls/hr Documented by: Piperacillin Sod/Tazobactam (Sod 4.5 gm/ Dextrose) 100 mls @ 200 mls/hr IVPB Q6H-IV [facility]; Protocol Last Admin: 02/12/20 08:41 Dose: 200 mls/hr Documented by: Midazolam HCl (Midazolam 100mg/100ml-0.9%Nacl) 100 mg in 100 mls @ 1 mls/hr IVPB TITR [facility]; Protocol Last Infusion: 02/12/20 08:44 Dose: 7 mg/hr, 7 mls/hr Documented by: Fentanyl (Sublimaze Ivpb) 500 mcg in 100 mls @ 1 mls/hr IVPB TITR [facility] Last Admin: 02/12/20 02:47 Dose: 80 mcg/hr, 16 mls/hr Documented by: Dextrose/Sodium Chloride (D5-Ns -) 1,000 mls @ 100 mls/hr IV ASDIR [facility] Last Admin: 02/11/20 09:00 Dose: 100 mls/hr Documented by: Methylprednisolone Sodium Succinate (Solu-Medrol -) 40 mg IVPUSH Q8H-IV [facility] Last Admin: 02/12/20 09:36 Dose: 40 mg Documented by: Pantoprazole Sodium (Protonix Iv) 40 mg IVPUSH BID [facility] Last Admin: 02/12/20 09:36 Dose: 40 mg Documented by: Sodium Chloride ([place] Nasal [place] -) 2 spray NS TID PRN PRN Reason: NASAL CONGESTION Tetrahydrozoline HCl (Visine -) 1 drop OU QID PRN PRN Reason: DRY EYES Last Admin: 02/10/20 14:13 Dose: 1 drop Documented by: Valproate Sodium (Depacon Injection -) 500 mg IVPB BID [facility] Last Admin: 02/12/20 09:36 Dose: 500 mg Documented by: Gen: intubated, myoclonic jerks Heart: RRR Lung: Vented, scattered rhonchi Abd: soft, +BS Ext: B/L UE 3+ edema ASSESSMENT AND PLAN: Acute Hypoxic and Hypercapneic Respiratory Failure s/p Cardiopulmonary Arrest Suspect Anoxic Brain Injury Pneumonia suspect Aspiration Sepsis Lactic Acidosis r/o SD Parkinsons Supranuclear Palsy - AC Mode of vent , not candidate for weaning - triston - appreciate neuro recs - Titrate Versed off, can increase Fentanyl gtt as needed - ABX per ID - monitor urine output, creatinine - Restart tube feeds, Perative at 20 ml/hr as tolerated - DVT/GI prophylaxis - continue ICU monitoring - poor overall prognosis, continue discussions regarding goals of care, advanced directives - will need tracheostomy pending family wishes, however Tracheostomy in this patient would not be an appropriate intervention given his overall condition/outcome Carol Thomas ACNP [id number]
[2020-02-12] MEDS: DEXTROSE 5%-NORMAL SALINE 1,000 ML IV SCH (14:00)
[2020-02-12] MEDS ORDERED: MIDAZOLAM IN 0.9 % SOD.CHLORID 1 MG/1 ML PLAST..BAG ONE (20:23)
[2020-02-12] MEDS: CHLORHEXIDINE GLUCONATE 4% CLEANSER FOR DECOLONIZATION TP SCH (21:10)
[2020-02-12] MEDS: TETRAHYDROZOLINE HCL EYE DROPS OU PRN (22:00)
[2020-02-13] MEDS: ACETYLCYSTEINE 20% 200MG/ML 4 ML VIAL *FOR ORAL / INH USE ONLY NEB SCH ×6 (00:15→20:38)
[2020-02-13] MEDS: ALBUTEROL SO4 0.083% IH SOL 2.5 MG/3 ML VIAL.NEB. NEB PRN ×5 (00:15→20:39)
[2020-02-13] MEDS ORDERED: fentaNYL CITRATE 250 MCG/5 ML VIAL ONE (01:22)
[2020-02-13] MEDS ORDERED: PROPOFOL 1,000,000 MCG/100 ML VIAL ONE (01:22)
[2020-02-13] MEDS ORDERED: PIPERACILLIN/TAZOBACTAM 4.5 GM VIAL IVPB ONE (02:02)
[2020-02-13] MEDS ORDERED: DEXTROSE 5%-WATER 100 ML IVPB ONE (02:02)
[2020-02-13] MEDS: PIPERACILLIN/TAZOB 4.5 GM 4.5 GM in DEXTROSE 5%-WATER 100 ML IVPB SCH (02:23)
[2020-02-13] MEDS: PROPOFOL 1,000,000 MCG/100 ML VIAL IVPB SCH ×2 (02:23→02:24)
[2020-02-13] MEDS: methylPREDNISolone NA SUCC 40 MG/1 ML VIAL IVPUSH SCH ×3 (02:23→17:40)
[2020-02-13] MEDS: FENTANYL IVPB 500 MCG/100 ML BAG IVPB SCH ×2 (02:24→06:44)
[2020-02-13 06:43] LABS: ARTERIAL BLD GAS O2 SATURATION 98.4 mmHg (95-98); ARTERIAL BLOOD GAS BASE EXCESS 11.1 mmol/L (-2-2); ARTERIAL BLOOD GAS pH 7.478 (7.350-7.450)
[2020-02-13] MEDS: CARBIDOPA/LEVODOPA 25/250 TABLET (FP) PO SCH ×6 (06:44→21:03)
[2020-02-13] MEDS: clonazePAM 2 MG TABLET GT SCH ×3 (06:44→21:03)
[2020-02-13] MEDS ORDERED: MIDAZOLAM IN 0.9 % SOD.CHLORID 1 MG/1 ML PLAST..BAG ONE (06:52)
[2020-02-13 07:06] LABS: ALLENS TEST POSITIVE
[2020-02-13 07:07] LABS: VENT MODE A/C; VENT RATE 18
[2020-02-13 08:00] LABS: BASO % 0.1 % (0-2.0); HEMATOCRIT 26.3 % (35.4-49); LYMPH % 6.9 % (8-40); MCH 31.6 pg (25.7-33.7); MEAN CELL VOLUME 92.8 fl (80-96); MEAN PLT VOLUME 8.3 fl (7.5-11.1); MONO % 5.4 % (3.8-10.2); NEUT % 87.6 % (42.8-82.8); PLATELET COUNT 278 K/MM3 (134-434); RBC 2.84 M/mm3 (4.00-5.60); RDW 15.6 % (11.9-15.9); WHITE BLOOD COUNT 6.7 K/mm3 (4.0-10.0)
[2020-02-13 08:33] LABS: ALBUMIN 1.5 g/dl (3.4-5.0); BILIRUBIN,TOTAL 0.2 mg/dL (0.2-1); BLOOD UREA NITROGEN 9.3 mg/dL (7-18); CALCIUM 7.1 mg/dL (8.5-10.1); CREATININE 0.3 mg/dL (0.55-1.3); MAGNESIUM 1.8 mg/dL (1.8-2.4); PHOSPHOROUS 1.8 mg/dL (2.5-4.9); TOT PROT 4.4 g/dl (6.4-8.2)
[2020-02-13] MEDS: AMINO ACIDS/PROTEIN HYDROLYS 30 ML LIQUID.PKT PO SCH ×2 (08:57→17:39)
[2020-02-13] MEDS: PANTOPRAZOLE SODIUM 40 MG VIAL IVPUSH SCH ×2 (09:20→21:03)
[2020-02-13] MEDS: VALPROATE SODIUM 500 MG/5 ML VIAL IVPB SCH (09:21)
[2020-02-13 09:55] LABS: ANISOCYTOSIS 1+; MACROCYTOSIS 0; PLATELET ESTIMATE NORMAL
[2020-02-13] MEDS ORDERED: POTASSIUM PHOSPHATE 30 MM in DEXTROSE 5%-WATER - 250 ML IVPB ONE (10:00)
--- NOTE | 2020-02-13 10:10 | PN.GI ---
GI Progress Note Subjective: GI NOte: Had some bleeding last night which appears to be self limited. Also has hematuria. - Objective Vital Signs: Vital Signs Temperature 97.8 F 02/13/20 09:34 Pulse Rate 61 02/13/20 08:26 Respiratory Rate 18 02/13/20 08:23 Blood Pressure 108/64 02/13/20 08:00 O2 Sat by Pulse Oximetry (%) 99 02/13/20 08:26 Laboratory Tests 02/11/20 02/12/20 02/13/20 05:00 05:00 05:30 Hgb 9.4 L 9.8 L 9.0 L Constitutional: Other (sedated) ...Auscultate: Yes: Hypoactive Bowel Sounds ...Palpate: Yes: Soft, Other (nontender) Labs: CBC, BMP 02/13/20 05:30 02/13/20 05:30 INR, PTT INR 1.04 (0.83-1.09) 02/06/20 18:00 Assessment/Plan Impression: - Hematochezia due to ischemic colitis. Plan: -- Continue PPI empirically -- [place] endoscopic and IR interventions for life threatening hemorrhage and after discussion with updated clinical status. -- If he survives then conversion to a J tube for feeding and preservation of the G tube will need to be reconsidered. Problem List - Problems (1) Hematochezia Code(s): K92.1 - MELENA (2) Aspiration pneumonia due to regurgitated food Code(s): J69.0 - PNEUMONITIS DUE TO INHALATION OF FOOD AND VOMIT (3) Respiratory failure Code(s): J96.90 - RESPIRATORY FAILURE, UNSP, UNSP W HYPOXIA OR HYPERCAPNIA Qualifiers: Chronicity: acute Respiratory failure complication: hypoxia Qualified Code(s): J96.01 - Acute respiratory failure with hypoxia (4) BPH (benign prostatic hyperplasia) Code(s): N40.0 - BENIGN PROSTATIC HYPERPLASIA WITHOUT LOWER URINRY TRACT SYMP (5) Functional quadriplegia Code(s): R53.2 - FUNCTIONAL QUADRIPLEGIA (6) Gastric dysmotility Code(s): K31.89 - OTHER DISEASES OF STOMACH AND DUODENUM (7) Gastrostomy status Code(s): Z93.1 - GASTROSTOMY STATUS (8) Hypertension Code(s): I10 - ESSENTIAL (PRIMARY) HYPERTENSION (9) Parkinson disease Code(s): G20 - PARKINSON'S DISEASE (10) Sepsis Code(s): A41.9 - SEPSIS, UNSPECIFIED ORGANISM Qualifiers: Acute respiratory failure type: with hypoxia Severe sepsis shock status: without septic shock (11) Supranuclear palsy Code(s): G23.1 - PROGRESSIVE SUPRANUCLEAR OPHTHALMOPLEGIA
--- NOTE | 2020-02-13 12:01 | PN ---
Progress Note, Physician Chief Complaint: Acute Hypoxic and Hypercapneic Respiratory Failure Pneumonia suspect Aspiration Sepsis Lactic Acidosis Parkinsons Supranuclear Palsy History of Present Illness: 4 year old non-verbal male with PMH of Parkinson's disease with Supranuclear palsy with PEG tube placed. Last admission at [facility] was in November for Aspiration PNA. Pt unable to communicate and family not present at bedside. As per ER staff, pt was with AMS earlier today, pt is non verbal at baseline but is able to communicate minimally using hand gestures. EMS was called and pt was found to be hypoxic in the 80s on home oxygen of 2L, which improved to 90s after Ambu bagging. In the ER, he was sedated and intubated, septic workup initiated, and admitted to the ICU. In the ER pt again began to desat, CXR showed massive left sided effusion/infiltrate and chest tube was palced with improvement in SpO2. Pt extubated on 01/28/20, re-intubated s/p Cardiac arrest on 01/31/20 Seen by palliative medicine-Family wants everything done Off pressors + myoclonus off sedation and even on increased dosage of Clonazepam Feeds on hold CT head-not consistent with anoxic brain damage. EEG results:First 18 minutes of recording which showed no electric seziure and slow background with no asymmetry consistent with history Anoxia and poor prognosis. Second phase sedation stopped and patient was clinically shaking with no elec tric seizure again. - Current Medication List Current Medications: Active Medications Acetaminophen (Tylenol Oral Solution -) 650 mg GT Q4H PRN PRN Reason: FEVER Last Admin: 01/31/20 03:14 Dose: 650 mg Documented by: Acetylcysteine (Mucomyst 20 Oral / Inh Use Only*) 200 mg NEB RQ4H [facility] Last Admin: 02/13/20 11:48 Dose: 200 mg Documented by: Albuterol Sulfate (Ventolin 0.083% Nebulizer Soln -) 1 amp NEB Q4H PRN PRN Reason: SHORT OF BREATH/WHEEZING Last Admin: 02/13/20 11:48 Dose: 1 amp Documented by: Amino Acids (Prosource No Carb Liquid Pkt) 30 ml PO BIDWM [facility] Last Admin: 02/13/20 08:57 Dose: 30 ml Documented by: Carbidopa/Levodopa (Sinemet 25/250 -) 1 each PO 1600,1900,2200 [facility] Last Admin: 02/12/20 21:10 Dose: 1 each Documented by: Carbidopa/Levodopa (Sinemet 25/250 -) 1 each PO 0700,1000,1300 [facility] Last Admin: 02/13/20 09:22 Dose: 1 each Documented by: Chlorhexidine Gluconate (Hibiclens For Decolonization -) 1 applic TP HS [facility] Last Admin: 02/12/20 21:10 Dose: 1 applic Documented by: Clonazepam (Klonopin -) 2 mg GT TID [facility] Last Admin: 02/13/20 06:44 Dose: 2 mg Documented by: Propofol (Diprivan -) 1,000,000 mcg in 100 mls @ 2.449 mls/hr IVPB TITR [facility]; Protocol Last Admin: 02/13/20 02:24 Dose: Not Given Documented by: Fentanyl (Sublimaze Ivpb) 500 mcg in 100 mls @ 1 mls/hr IVPB TITR [facility] Last Admin: 02/13/20 06:44 Dose: 100 mcg/hr, 20 mls/hr Documented by: Dextrose/Sodium Chloride (D5-Ns -) 1,000 mls @ 100 mls/hr IV ASDIR [facility] Last Admin: 02/12/20 14:00 Dose: 100 mls/hr Documented by: Potassium Phosphate 30 mm/ (Dextrose) 260 mls @ 65 mls/hr IVPB ONCE ONE Stop: 02/13/20 13:59 Last Admin: 02/13/20 10:46 Dose: 65 mls/hr Documented by: Methylprednisolone Sodium Succinate (Solu-Medrol -) 40 mg IVPUSH Q8H-IV [facility] Last Admin: 02/13/20 09:20 Dose: 40 mg Documented by: Pantoprazole Sodium (Protonix Iv) 40 mg IVPUSH BID [facility] Last Admin: 02/13/20 09:20 Dose: 40 mg Documented by: Sodium Chloride ([place] Nasal [place] -) 2 spray NS TID PRN PRN Reason: NASAL CONGESTION Tetrahydrozoline HCl (Visine -) 1 drop OU QID PRN PRN Reason: DRY EYES Last Admin: 02/10/20 14:13 Dose: 1 drop Documented by: Valproate Sodium (Depacon Injection -) 500 mg IVPB BID [facility] Last Admin: 02/13/20 09:21 Dose: 500 mg Documented by: - Objective Vital Signs: Vital Signs Temperature 97.8 F 02/13/20 09:34 Pulse Rate 61 02/13/20 08:26 Respiratory Rate 18 02/13/20 11:45 Blood Pressure 108/64 02/13/20 08:00 O2 Sat by Pulse Oximetry (%) 100 02/13/20 11:45 Labs: CBC, BMP 02/13/20 05:30 02/13/20 05:30 INR, PTT INR 1.04 (0.83-1.09) 02/06/20 18:00 Problem List - Problems (1) Pneumonia Code(s): J18.9 - PNEUMONIA, UNSPECIFIED ORGANISM Qualifiers: Pneumonia type: due to unspecified organism Laterality: bilateral Lung location: unspecified part of lung Qualified Code(s): J18.9 - Pneumonia, unspecified organism (2) Respiratory failure Code(s): J96.90 - RESPIRATORY FAILURE, UNSP, UNSP W HYPOXIA OR HYPERCAPNIA Qualifiers: Chronicity: acute Respiratory failure complication: hypoxia Qualified Code(s): J96.01 - Acute respiratory failure with hypoxia (3) Functional quadriplegia Code(s): R53.2 - FUNCTIONAL QUADRIPLEGIA (4) Parkinson disease Code(s): G20 - PARKINSON'S DISEASE (5) Supranuclear palsy Code(s): G23.1 - PROGRESSIVE SUPRANUCLEAR OPHTHALMOPLEGIA (6) Cardiac arrest Code(s): I46.9 - CARDIAC ARREST, CAUSE UNSPECIFIED (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
--- NOTE | 2020-02-13 14:07 | PN ---
Teaching Attending Note Name of Resident: Errol Franco ATTENDING PHYSICIAN STATEMENT I saw and evaluated the patient. I reviewed the resident's note and discussed the case with the resident. I agree with the resident's findings and plan as documented. SUBJECTIVE: Patient seen and examined in the ICU. Intubated on AC Mode of vent. No myoclonic jerks noted. No pressors. New GI bleed. Intake & Output 02/10/20 02/11/20 02/12/20 02/13/20 23:59 23:59 23:59 23:59 Intake Total 4631 3424 3783 1381.4 Output Total 1700 3000 7100 1800 Balance 2931 424 -3317 -418.6 Weight 167 lb 1.6 oz 169 lb 9.6 oz 164 lb 12.8 oz 158 lb 14.4 oz Last Vital Signs Temp Pulse Resp BP Pulse Ox 97.8 F 61 18 108/64 100 02/13/20 09:34 02/13/20 08:26 02/13/20 11:45 02/13/20 08:00 02/13/20 11:45 Active Medications Acetaminophen (Tylenol Oral Solution -) 650 mg GT Q4H PRN PRN Reason: FEVER Last Admin: 01/31/20 03:14 Dose: 650 mg Documented by: Acetylcysteine (Mucomyst 20 Oral / Inh Use Only*) 200 mg NEB RQ4H [facility] Last Admin: 02/13/20 11:48 Dose: 200 mg Documented by: Albuterol Sulfate (Ventolin 0.083% Nebulizer Soln -) 1 amp NEB Q4H PRN PRN Reason: SHORT OF BREATH/WHEEZING Last Admin: 02/13/20 11:48 Dose: 1 amp Documented by: Amino Acids (Prosource No Carb Liquid Pkt) 30 ml PO BIDWM [facility] Last Admin: 02/13/20 08:57 Dose: 30 ml Documented by: Carbidopa/Levodopa (Sinemet 25/250 -) 1 each PO 1600,1900,2200 [facility] Last Admin: 02/12/20 21:10 Dose: 1 each Documented by: Carbidopa/Levodopa (Sinemet 25/250 -) 1 each PO 0700,1000,1300 [facility] Last Admin: 02/13/20 09:22 Dose: 1 each Documented by: Chlorhexidine Gluconate (Hibiclens For Decolonization -) 1 applic TP HS [facility] Last Admin: 02/12/20 21:10 Dose: 1 applic Documented by: Clonazepam (Klonopin -) 2 mg GT TID [facility] Last Admin: 02/13/20 06:44 Dose: 2 mg Documented by: Propofol (Diprivan -) 1,000,000 mcg in 100 mls @ 2.449 mls/hr IVPB TITR [facility]; Protocol Last Admin: 02/13/20 02:24 Dose: Not Given Documented by: Fentanyl (Sublimaze Ivpb) 500 mcg in 100 mls @ 1 mls/hr IVPB TITR [facility] Last Admin: 02/13/20 06:44 Dose: 100 mcg/hr, 20 mls/hr Documented by: Dextrose/Sodium Chloride (D5-Ns -) 1,000 mls @ 100 mls/hr IV ASDIR [facility] Last Admin: 02/12/20 14:00 Dose: 100 mls/hr Documented by: Methylprednisolone Sodium Succinate (Solu-Medrol -) 40 mg IVPUSH Q8H-IV [facility] Last Admin: 02/13/20 09:20 Dose: 40 mg Documented by: Pantoprazole Sodium (Protonix Iv) 40 mg IVPUSH BID [facility] Last Admin: 02/13/20 09:20 Dose: 40 mg Documented by: Sodium Chloride ([place] Nasal [place] -) 2 spray NS TID PRN PRN Reason: NASAL CONGESTION Tetrahydrozoline HCl (Visine -) 1 drop OU QID PRN PRN Reason: DRY EYES Last Admin: 02/10/20 14:13 Dose: 1 drop Documented by: Valproate Sodium (Depacon Injection -) 500 mg IVPB BID [facility] Last Admin: 02/13/20 09:21 Dose: 500 mg Documented by: Gen: intubated, minimally responsive Heart: RRR Lung: Vented, scattered rhonchi Abd: soft, nontender Ext: no edema Laboratory Results - last 24 hr 02/13/20 02/13/20 02/13/20 05:30 05:30 05:30 WBC 6.7 RBC 2.84 L Hgb 9.0 L Hct 26.3 L MCV 92.8 MCH 31.6 MCHC 34.0 RDW 15.6 Plt Count 278 MPV 8.3 Absolute Neuts (auto) 5.9 Neutrophils % 87.6 H Neutrophils % (Manual) 92.0 H Band Neutrophils % 0.0 Lymphocytes % 6.9 L D Lymphocytes % (Manual) 5.0 L D Monocytes % 5.4 Monocytes % (Manual) 1 L Eosinophils % 0.0 D Eosinophils % (Manual) 0.0 Basophils % 0.1 Basophils % (Manual) 0.0 Myelocytes % (Man) 0 D Promyelocytes % (Man) 0 Blast Cells % (Manual) 0 Nucleated RBC % 1 H Metamyelocytes 0 Hypochromia 0 Platelet Estimate Normal Polychromasia 0 Poikilocytosis 0 Anisocytosis 1+ Microcytosis 1+ Macrocytosis 0 Anticoagulation Therapy No Result Required. Puncture Site Right radial Patient Temperature No Result Required. ABG pH 7.478 H ABG pCO2 49.30 H ABG pO2 117.0 H ABG HCO3 35.7 H ABG O2 Sat (Measured) 98.4 H ABG O2 Content No Result Required. ABG Base Excess 11.1 H Darion Test Positive Patient On Oxygen Yes O2 Delivery Device Vent Oxygen Flow Rate 50% Vent Mode A/c Vent Rate 18 Mechanical Rate Yes PEEP 7.0 Pressure Support Vent 400 Sodium 147 H Potassium 3.0 L Chloride 106 Carbon Dioxide 37 H Anion Gap 4 L BUN 9.3 Creatinine 0.3 L Est GFR (CKD-EPI)AfAm 161.45 Est GFR (CKD-EPI)NonAf 139.30 Random Glucose 118 H Calcium 7.1 L Phosphorus 1.8 L Magnesium 1.8 Total Bilirubin 0.2 AST 17 ALT 7 L Alkaline Phosphatase 64 Total Protein 4.4 L Albumin 1.5 L ASSESSMENT AND PLAN: Acute Hypoxic and Hypercapneic Respiratory Failure s/p Cardiopulmonary Arrest Suspect Anoxic Brain Injury Pneumonia suspect Aspiration Sepsis Lactic Acidosis Parkinsons Supranuclear Palsy GI Bleed - AC Mode of vent - Klonopin - Wean Versed - ABX per ID - monitor urine output, creatinine - Hold enteral feeds due to GO bleeding - Normal transfusion thresholds - DVT/GI prophylaxis - continue ICU monitoring - poor overall prognosis, continue discussions regarding goals of care, advanced directives - will need tracheostomy pending family wishes, however Tracheostomy in this patient would not be an appropriate intervention given his overall condition/outcome. Family awaiting input from Neuro as to overall prognosis. - I recommend comfort measures with compassionate extubation Dr Scott Critical care time spent in reviewing chart, evaluating patient and formulating plan 35 min
[2020-02-13] MEDS: MIDAZOLAM IN 0.9 % SOD.CHLORID 100 MG/100 ML PLAST..BAG IVPB SCH (15:34)
[2020-02-13] MEDS: DEXTROSE 5%-NORMAL SALINE 1,000 ML IV SCH (15:35)
--- NOTE | 2020-02-13 15:40 | PN ---
Progress Note, Physician - Current Medication List Current Medications: Active Medications Acetaminophen (Tylenol Oral Solution -) 650 mg GT Q4H PRN PRN Reason: FEVER Last Admin: 01/31/20 03:14 Dose: 650 mg Documented by: Acetylcysteine (Mucomyst 20 Oral / Inh Use Only*) 200 mg NEB RQ4H [facility] Last Admin: 02/13/20 11:48 Dose: 200 mg Documented by: Albuterol Sulfate (Ventolin 0.083% Nebulizer Soln -) 1 amp NEB Q4H PRN PRN Reason: SHORT OF BREATH/WHEEZING Last Admin: 02/13/20 11:48 Dose: 1 amp Documented by: Amino Acids (Prosource No Carb Liquid Pkt) 30 ml PO BIDWM [facility] Last Admin: 02/13/20 08:57 Dose: 30 ml Documented by: Carbidopa/Levodopa (Sinemet 25/250 -) 1 each PO 1600,1900,2200 [facility]S [facility] 234 BEDS AT [facility] Last Admin: 02/12/20 21:10 Dose: 1 each Documented by: Carbidopa/Levodopa (Sinemet 25/250 -) 1 each PO 0700,1000,1300 [facility]S [facility]CLUDE 234 BEDS AT [facility] Last Admin: 02/13/20 15:00 Dose: 1 each Documented by: Chlorhexidine Gluconate (Hibiclens For Decolonization -) 1 applic TP HS [facility]S [facility]CLUDE 234 BEDS AT [facility] Last Admin: 02/12/20 21:10 Dose: 1 applic Documented by: Clonazepam (Klonopin -) 2 mg GT TID [facility]S INCLUDE 234 BEDS AT [facility] Last Admin: 02/13/20 14:56 Dose: 2 mg Documented by: Propofol (Diprivan -) 1,000,000 mcg in 100 mls @ 2.449 mls/hr IVPB TITR [facility]S [facility]CLUDE 234 BEDS AT [facility]; Protocol Last Admin: 02/13/20 02:24 Dose: Not Given Documented by: Fentanyl (Sublimaze Ivpb) 500 mcg in 100 mls @ 1 mls/hr IVPB TITR [facility]S [facility]CLUDE 234 BEDS AT [facility] Last Admin: 02/13/20 06:44 Dose: 100 mcg/hr, 20 mls/hr Documented by: Dextrose/Sodium Chloride (D5-Ns -) 1,000 mls @ 100 mls/hr IV ASDIR COUNTS INCLUDE 234 BEDS AT [facility] Last Admin: 02/13/20 15:35 Dose: 100 mls/hr Documented by: Midazolam HCl (Midazolam 100mg/100ml-0.9%Nacl) 100 mg in 100 mls @ 1 mls/hr IVPB TITR [facility]; Protocol Last Admin: 02/13/20 15:34 Dose: 1 mg/hr, 1 mls/hr Documented by: Methylprednisolone Sodium Succinate (Solu-Medrol -) 40 mg IVPUSH Q8H-IV [facility] Last Admin: 02/13/20 09:20 Dose: 40 mg Documented by: Pantoprazole Sodium (Protonix Iv) 40 mg IVPUSH BID [facility]S INCLUDE 234 BEDS AT [facility] Last Admin: 02/13/20 09:20 Dose: 40 mg Documented by: Sodium Chloride ([place] Nasal [place] -) 2 spray NS TID PRN PRN Reason: NASAL CONGESTION Tetrahydrozoline HCl (Visine -) 1 drop OU QID PRN PRN Reason: DRY EYES Last Admin: 02/10/20 14:13 Dose: 1 drop Documented by: Valproate Sodium (Depacon Injection -) 500 mg IVPB BID [facility]S [facility]CLUDE 234 BEDS AT [facility] Last Admin: 02/13/20 09:21 Dose: 500 mg Documented by: - Objective Vital Signs: Vital Signs Temperature 97.8 F 02/13/20 09:34 Pulse Rate 61 02/13/20 08:26 Respiratory Rate 18 02/13/20 11:45 Blood Pressure 108/64 02/13/20 08:00 O2 Sat by Pulse Oximetry (%) 100 02/13/20 11:45 Labs: CBC, BMP 02/13/20 05:30 02/13/20 05:30 INR, PTT INR 1.04 (0.83-1.09) 02/06/20 18:00
--- NOTE | 2020-02-13 17:50 | PN ---
Physical Exam: SUBJECTIVE: Patient seen and examined. One Large bloody Bm. Feeds were stopped. After trying to decrease the sedation, the patient had increase myoclonic jerks again. OBJECTIVE: Vital Signs Period Temp Pulse Resp BP Sys/Villegas Pulse Ox Last 24 Hr 97.1 F-97.9 F 52-76 17-19 108-152/62-80 99-100 GENERAL: Intubated and sedated HEENT: NC,AT, pinpoint pupils, edema of lips LUNGS: Breath sounds equal, clear to auscultation bilaterally, no wheezes, no crackles, no accessory muscle use. decreased breath sounds bases b/l HEART: Regular rate and rhythm, S1, S2 without murmur, rub or gallop. ABDOMEN: Soft, nontender, nondistended, normoactive bowel sounds, no guarding, PEG tube in RUQ EXTREMITIES: 2+ pulses, warm, well-perfused, minimal intermittent myoclonic jerks in feet b/l. 1+ edema UE SKIN: Warm, dry, stage III ulcer on L buttock, no erythema, no discharge Neuro: no gag reflex appreciated Laboratory Results - last 24 hr 02/13/20 02/13/20 02/13/20 05:30 05:30 05:30 WBC 6.7 RBC 2.84 L Hgb 9.0 L Hct 26.3 L MCV 92.8 MCH 31.6 MCHC 34.0 RDW 15.6 Plt Count 278 MPV 8.3 Absolute Neuts (auto) 5.9 Neutrophils % 87.6 H Neutrophils % (Manual) 92.0 H Band Neutrophils % 0.0 Lymphocytes % 6.9 L D Lymphocytes % (Manual) 5.0 L D Monocytes % 5.4 Monocytes % (Manual) 1 L Eosinophils % 0.0 D Eosinophils % (Manual) 0.0 Basophils % 0.1 Basophils % (Manual) 0.0 Myelocytes % (Man) 0 D Promyelocytes % (Man) 0 Blast Cells % (Manual) 0 Nucleated RBC % 1 H Metamyelocytes 0 Hypochromia 0 Platelet Estimate Normal Polychromasia 0 Poikilocytosis 0 Anisocytosis 1+ Microcytosis 1+ Macrocytosis 0 Anticoagulation Therapy No Result Required. Puncture Site Right radial Patient Temperature No Result Required. ABG pH 7.478 H ABG pCO2 49.30 H ABG pO2 117.0 H ABG HCO3 35.7 H ABG O2 Sat (Measured) 98.4 H ABG O2 Content No Result Required. ABG Base Excess 11.1 H Darion Test Positive Patient On Oxygen Yes O2 Delivery Device Vent Oxygen Flow Rate 50% Vent Mode A/c Vent Rate 18 Mechanical Rate Yes PEEP 7.0 Pressure Support Vent 400 Sodium 147 H Potassium 3.0 L Chloride 106 Carbon Dioxide 37 H Anion Gap 4 L BUN 9.3 Creatinine 0.3 L Est GFR (CKD-EPI)AfAm 161.45 Est GFR (CKD-EPI)NonAf 139.30 Random Glucose 118 H Calcium 7.1 L Phosphorus 1.8 L Magnesium 1.8 Total Bilirubin 0.2 AST 17 ALT 7 L Alkaline Phosphatase 64 Total Protein 4.4 L Albumin 1.5 L Active Medications Generic Name Dose Route Start Last Admin Trade Name Freq PRN Reason Stop Dose Admin Acetaminophen 650 mg 01/27/20 17:27 01/31/20 03:14 Tylenol Oral Solution - GT 650 mg Q4H PRN Administration FEVER Acetylcysteine 200 mg 01/29/20 16:12 02/13/20 15:42 Mucomyst 20 Oral / Inh Use Only* NEB 200 mg RQ4H [facility]RITA Administration Albuterol Sulfate 1 amp 02/09/20 06:11 02/13/20 11:48 Ventolin 0.083% Nebulizer Soln - NEB 1 amp Q4H PRN Administration SHORT OF BREATH/WHEEZING Amino Acids 30 ml 02/03/20 08:00 02/13/20 17:39 Prosource No Carb Liquid Pkt PO 30 ml BIDWM [facility]RITA Administration Carbidopa/Levodopa 1 each 01/29/20 16:00 02/13/20 17:00 Sinemet 25/250 - PO 1 each 1600,1900,2200 [facility]ITA Administration Carbidopa/Levodopa 1 each 01/30/20 07:00 02/13/20 15:00 Sinemet 25/250 - PO 1 each 0700,1000,1300 [facility] Administration Chlorhexidine Gluconate 1 applic 01/25/20 22:00 02/12/20 21:10 Hibiclens For Decolonization - TP 1 applic HS [facility]ITA Administration Clonazepam 2 mg 02/07/20 10:45 02/13/20 14:56 Klonopin - GT 2 mg TID AMRITA Administration Propofol 1,000,000 mcg in 100 mls @ 2.449 mls/hr 01/24/20 22:45 02/13/20 02:24 Diprivan - IVPB Not Given TITR [facility]ITA Protocol 5 MCG/KG/MIN Fentanyl 500 mcg in 100 mls @ 1 mls/hr 02/09/20 04:30 02/13/20 06:44 Sublimaze Ivpb IVPB 100 mcg/hr TITR [facility]ITA 20 mls/hr Administration 5 MCG/HR Dextrose/Sodium Chloride 1,000 mls @ 100 mls/hr 02/09/20 08:58 02/13/20 15:35 D5-Ns - IV 100 mls/hr ASDIR [facility] Administration Midazolam HCl 100 mg in 100 mls @ 1 mls/hr 02/13/20 15:15 02/13/20 15:34 Midazolam 100mg/100ml-0.9%Nacl IVPB 1 mg/hr TITR [facility]ITA 1 mls/hr Administration Protocol 1 MG/HR Methylprednisolone Sodium Succinate 40 mg 01/31/20 13:00 02/13/20 17:40 Solu-Medrol - IVPUSH 40 mg Q8H-IV [facility]ITA Administration Pantoprazole Sodium 40 mg 02/07/20 22:00 02/13/20 09:20 Protonix Iv IVPUSH 40 mg BID [facility]ITA Administration Sodium Chloride 2 spray 01/30/20 06:54 [place] Nasal [place] - NS TID PRN NASAL CONGESTION Tetrahydrozoline HCl 1 drop 01/27/20 18:51 02/10/20 14:13 Visine - OU 1 drop QID PRN Administration DRY EYES Valproate Sodium 500 mg 02/07/20 22:00 02/13/20 09:21 Depacon Injection - IVPB 500 mg BID [facility] Administration ASSESSMENT/PLAN: 64 YO M PMH HTN, BPH, Parkinson's disease with Supranuclear palsy (with PEG tube in RUQ). Found to have PNA. Admitted to ICU for Acute hypoxic, hypercapnic respiratory failure 2/2 PNA. #Neuro - Re-intubated 01/30 after cardiac arrest, Intubated and sedated with midazolam 10 mg/h, propofol 50 mcg/kg/min and fentanl 100 mcg/h. - CT head (02/01): Mild chronic microvascular ischemic changes, possible 1.4cm focal infarct in posterior fossa - CT Head (02/02): Previously identified focal attenuation in cerebellum not definitely identified -Parkinson's disease. 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 Bilateral mastoid effusion/mastoiditis & bilateral otitis media. Moderate volume loss. -Bedside EEG: First phase: no electric seizure and slow background with no asymmetry consistent with history Anoxia. Second phase sedation stopped; pt clinically shaking, but with no electric seizure #Pulm # Acute hypoxic, hypercapnic respiratory failure 2/2 PNA - S/p chest tube for pleural effusion/infiltrate --CXR: b/l pulmonary & pleural changes. Left greater than the right. Progressive infiltrate -Vent AC: Rate 18, TV 400, FIO2 70%, PEEP 7, Pplat 17. -Patient already had myoclonic jerks under sedation. Did not attempt to turn off sedation today. Will consider trach and consult Dr. Shi. - Mucomyst, Ventolin, Solumedrol 40 Q8H (01/30) -ABG INCREASED pH 7.478, PCO2 49.3, HCO3 35.7, base excess 11.1 #Cardio #HTN: hypotensive. will hold home medications affecting BP. maintain MAP >65. #ST elevation on EKG EKG: Sinus tachycardia. Left axis deviation. Right bundle branch block. ST elevation. 101 bpm, QTC 464. -Trop X2 negative -lactic acidosis resolved. -Cardiology consult (Dr. Jauregui): RBBB, possibly lateral ST elevations, no need for further cardiac work-up nor testing in this setting. -off of pressors #GI - PEG tube in place - Family prefers J tube to decrease risk of aspiration. Will consider consulting surgery/IR after possible trach -GI consult appreciated continue with protonix 40 mg BID IV push. monitor with serial CBCs, transfuse PRN #Heme -Dark stool. H/o bloody stools for past few days. continue holding Lovenox. -Hgb/Hct decreased to 02/17.3 #ID -CXR: b/l pulmonary & pleural changes. Left greater than the right. Progressive infiltrate -blood culture neg X2 (01/23), ucx neg (01/23) -sputum cx: pseudomonas aeruginosa & staph aureus. Pseudomonas sensitive to zosyn. -c/w zosyn 4.5 g IVPB Q6H (01/23) #Renal - BUN/Cr 7.3/0.3 today - UA 1+ Protein with trace ketones -3783 mL I's/7100 ml O's/ -3317 ml balance - [place] in place #FEN -D5 NS @ 100 ml/hr given pt is not receiving feeds -monitor lytes. phos repleted - feeds stopped / GI bleed #DVT PPX had blood in stool. continue holding Lovenox #Lines [place] ETT (01/24), (01/30 s/p cardiac arrest) RUQ peg (patient presented to ED with it) Left IJ triple lumen (01/31) Removed. Right IJ triple lumen (02/09) #Dispo -maintain ICU -Family wants FULL code now -son Dr. Huajhonathan Eusebio: [phone] Visit type - Emergency Visit Emergency Visit: Yes ED Registration Date: 01/24/20 Care time: The patient presented to the Emergency Department on the above date and was hospitalized for further evaluation of their emergent condition. - New Patient This patient is new to me today: No - Critical Care Critical Care patient: No - Medication Review Med list reviewed for High Risk Meds patients 65 and older: Yes ATTENDING PHYSICIAN STATEMENT I saw and evaluated the patient. I reviewed the resident's note and discussed the case with the resident. I agree with the resident's findings and plan as documented. SUBJECTIVE: OBJECTIVE: ASSESSMENT AND PLAN:
--- NOTE | 2020-02-13 19:33 | PN ---
Progress Note, Physician History of Present Illness: events noted Chart reviewed Still critical vent dependant Slight better as less shaking off the sedation with me Only sp movements with the legs - Current Medication List Current Medications: Active Medications Acetaminophen (Tylenol Oral Solution -) 650 mg GT Q4H PRN PRN Reason: FEVER Last Admin: 01/31/20 03:14 Dose: 650 mg Documented by: Acetylcysteine (Mucomyst 20 Oral / Inh Use Only*) 200 mg NEB RQ4H [facility]ITA Last Admin: 02/13/20 15:42 Dose: 200 mg Documented by: Albuterol Sulfate (Ventolin 0.083% Nebulizer Soln -) 1 amp NEB Q4H PRN PRN Reason: SHORT OF BREATH/WHEEZING Last Admin: 02/13/20 11:48 Dose: 1 amp Documented by: Amino Acids (Prosource No Carb Liquid Pkt) 30 ml PO BIDWM AMRITA Last Admin: 02/13/20 17:39 Dose: 30 ml Documented by: Carbidopa/Levodopa (Sinemet 25/250 -) 1 each PO 1600,1900,2200 [facility] Last Admin: 02/13/20 19:21 Dose: 1 each Documented by: Carbidopa/Levodopa (Sinemet 25/250 -) 1 each PO 0700,1000,1300 [facility] Last Admin: 02/13/20 15:00 Dose: 1 each Documented by: Chlorhexidine Gluconate (Hibiclens For Decolonization -) 1 applic TP HS [facility] Last Admin: 02/12/20 21:10 Dose: 1 applic Documented by: Clonazepam (Klonopin -) 2 mg GT TID AMRITA Last Admin: 02/13/20 14:56 Dose: 2 mg Documented by: Propofol (Diprivan -) 1,000,000 mcg in 100 mls @ 2.449 mls/hr IVPB TITR AMRITA; Protocol Last Admin: 02/13/20 02:24 Dose: Not Given Documented by: Fentanyl (Sublimaze Ivpb) 500 mcg in 100 mls @ 1 mls/hr IVPB TITR AMRITA Last Admin: 02/13/20 06:44 Dose: 100 mcg/hr, 20 mls/hr Documented by: Dextrose/Sodium Chloride (D5-Ns -) 1,000 mls @ 100 mls/hr IV ASDIR AMRITA Last Admin: 02/13/20 15:35 Dose: 100 mls/hr Documented by: Midazolam HCl (Midazolam 100mg/100ml-0.9%Nacl) 100 mg in 100 mls @ 1 mls/hr IVPB TITR AMRITA; Protocol Last Admin: 02/13/20 15:34 Dose: 1 mg/hr, 1 mls/hr Documented by: Methylprednisolone Sodium Succinate (Solu-Medrol -) 40 mg IVPUSH Q8H-IV [facility] Last Admin: 02/13/20 17:40 Dose: 40 mg Documented by: Pantoprazole Sodium (Protonix Iv) 40 mg IVPUSH BID [facility] Last Admin: 02/13/20 09:20 Dose: 40 mg Documented by: Sodium Chloride ([place] Nasal [place] -) 2 spray NS TID PRN PRN Reason: NASAL CONGESTION Tetrahydrozoline HCl (Visine -) 1 drop OU QID PRN PRN Reason: DRY EYES Last Admin: 02/10/20 14:13 Dose: 1 drop Documented by: Valproate Sodium (Depacon Injection -) 500 mg IVPB BID [facility] Last Admin: 02/13/20 09:21 Dose: 500 mg Documented by: - Objective Vital Signs: Vital Signs Temperature 97.8 F 02/13/20 17:55 Pulse Rate 53 L 02/13/20 17:55 Respiratory Rate 18 02/13/20 17:55 Blood Pressure 142/78 02/13/20 17:55 O2 Sat by Pulse Oximetry (%) 100 02/13/20 17:55 Constitutional: Yes: Well Nourished Eyes: Yes: WNL Neurological: Yes: Babinski positive, Cran Nerves II-XII Intact, Other (positive sp movemenst griamces to pain sp on stimulation) Labs: CBC, BMP 02/13/20 05:30 02/13/20 05:30 INR, PTT INR 1.04 (0.83-1.09) 02/06/20 18:00 Problem List - Problems (1) Parkinson disease Code(s): G20 - PARKINSON'S DISEASE (2) Cardiac arrest Code(s): I46.9 - CARDIAC ARREST, CAUSE UNSPECIFIED Assessment/Plan 1. Monitor CBC 2. Taper Versded 3. Change Depakote due to no help to Vimpat 100 mg IV 4. Continue the Klonopin I had a lengthy conversation with son who does not want Trach if there is no recovery and I told him off sedation he is not brain I am in support of both lowering sedation continuing the Klonpin and doing the Trach The rweal hidden monster here is bi atypical parkinson PSP that is creeping behind the scene and making the weaning impossible
[2020-02-13] MEDS: CHLORHEXIDINE GLUCONATE 4% CLEANSER FOR DECOLONIZATION TP SCH (21:03)
[2020-02-13] MEDS: TETRAHYDROZOLINE HCL EYE DROPS OU PRN (21:14)
[2020-02-13] MEDS: Lacosamide 200 MG/20 ML VIAL IVPB SCH (21:26)
[2020-02-14] MEDS: PROPOFOL 1,000,000 MCG/100 ML VIAL IVPB SCH ×4 (00:03→23:34)
[2020-02-14] MEDS: MIDAZOLAM IN 0.9 % SOD.CHLORID 100 MG/100 ML PLAST..BAG IVPB SCH (02:29)
[2020-02-14] MEDS: methylPREDNISolone NA SUCC 40 MG/1 ML VIAL IVPUSH SCH ×3 (02:31→17:20)
[2020-02-14] MEDS: FENTANYL IVPB 500 MCG/100 ML BAG IVPB SCH ×4 (02:31→13:31)
[2020-02-14] MEDS: ALBUTEROL SO4 0.083% IH SOL 2.5 MG/3 ML VIAL.NEB. NEB PRN ×3 (04:37→20:30)
[2020-02-14] MEDS: ACETYLCYSTEINE 20% 200MG/ML 4 ML VIAL *FOR ORAL / INH USE ONLY NEB SCH ×6 (04:37→20:00)
[2020-02-14 06:36] LABS: EOS % 0.1 % (0-4.5); HEMATOCRIT 27.3 % (35.4-49); HEMOGLOBIN 9.1 GM/dL (11.7-16.9); LYMPH % 7.5 % (8-40); MCH 30.7 pg (25.7-33.7); MCHC 33.5 g/dl (32.0-35.9); MEAN CELL VOLUME 91.7 fl (80-96); MEAN PLT VOLUME 7.8 fl (7.5-11.1); MONO % 6.8 % (3.8-10.2); NEUT % 85.6 % (42.8-82.8); PLATELET COUNT 270 K/MM3 (134-434); RBC 2.98 M/mm3 (4.00-5.60); RDW 15.5 % (11.9-15.9); WHITE BLOOD COUNT 6.5 K/mm3 (4.0-10.0)
[2020-02-14] MEDS: TETRAHYDROZOLINE HCL EYE DROPS OU PRN ×2 (06:38→13:53)
[2020-02-14] MEDS: clonazePAM 2 MG TABLET GT SCH ×3 (06:38→21:28)
[2020-02-14] MEDS: CARBIDOPA/LEVODOPA 25/250 TABLET (FP) PO SCH ×6 (06:38→21:28)
[2020-02-14 07:07] LABS: ALBUMIN 1.5 g/dl (3.4-5.0); ALK PHOS 67 U/L (45-117); BILIRUBIN,TOTAL 0.4 mg/dL (0.2-1); BLOOD UREA NITROGEN 7.2 mg/dL (7-18); CALCIUM 7.3 mg/dL (8.5-10.1); CHLORIDE 105 mmol/L (98-107); CO2 36 mmol/L (21-32); CREATININE 0.3 mg/dL (0.55-1.3); GLUCOSE,RANDOM 116 mg/dL (74-106); MAGNESIUM 1.8 mg/dL (1.8-2.4); PHOSPHOROUS 1.7 mg/dL (2.5-4.9); SGOT/AST 14 U/L (15-37); SODIUM 145 mmol/L (136-145); TOT PROT 4.5 g/dl (6.4-8.2)
[2020-02-14 07:28] LABS: ANION GAP 3 MMOL/L (8-16); SGPT/ALT < 6 U/L (13-61)
[2020-02-14 07:39] LABS: POTASSIUM 2.9 mmol/L (3.5-5.1)
[2020-02-14] MEDS: D5-NS + 20 MEQ KCL - 20 MEQ/1,000 ML INFUS.BAG IV SCH (08:03)
[2020-02-14] MEDS: AMINO ACIDS/PROTEIN HYDROLYS 30 ML LIQUID.PKT PO SCH ×2 (08:07→17:20)
[2020-02-14] MEDS: PANTOPRAZOLE SODIUM 40 MG VIAL IVPUSH SCH ×2 (09:07→21:28)
[2020-02-14] MEDS: Lacosamide 200 MG/20 ML VIAL IVPB SCH ×2 (09:10→21:29)
[2020-02-14] MEDS ORDERED: POTASSIUM PHOSPHATE 30 MM in DEXTROSE 5%-WATER - 250 ML IVPB ONE (10:00)
[2020-02-14 11:11] LABS: ANISOCYTOSIS 0; MACROCYTOSIS 0; PLATELET ESTIMATE NORMAL
--- NOTE | 2020-02-14 14:29 | PN ---
Teaching Attending Note Name of Resident: Errol Franco ATTENDING PHYSICIAN STATEMENT I saw and evaluated the patient. I reviewed the resident's note and discussed the case with the resident. I agree with the resident's findings and plan as documented. SUBJECTIVE: Patient seen and examined in the ICU. Intubated on AC Mode of vent. No myoclonic jerks noted. No pressors. Neuro follow up noted. Intake & Output 02/11/20 02/12/20 02/13/20 02/14/20 23:59 23:59 23:59 23:59 Intake Total 3424 3783 3244.4 1646.4 Output Total 3000 7100 5350 2100 Balance 424 -3317 -2105.6 -453.6 Weight 169 lb 9.6 oz 164 lb 12.8 oz 158 lb 14.4 oz 157 lb 9.6 oz Last Vital Signs Temp Pulse Resp BP Pulse Ox 97.6 F 62 18 126/74 99 02/14/20 10:47 02/14/20 12:00 02/14/20 12:06 02/14/20 12:00 02/14/20 12:06 Active Medications Acetaminophen (Tylenol Oral Solution -) 650 mg GT Q4H PRN PRN Reason: FEVER Last Admin: 01/31/20 03:14 Dose: 650 mg Documented by: Acetylcysteine (Mucomyst 20 Oral / Inh Use Only*) 200 mg NEB RQ4H [facility] Last Admin: 02/14/20 12:05 Dose: Not Given Documented by: Amino Acids (Prosource No Carb Liquid Pkt) 30 ml PO BIDWM [facility] Last Admin: 02/14/20 08:07 Dose: 30 ml Documented by: Carbidopa/Levodopa (Sinemet 25/250 -) 1 each PO 1600,1900,2200 [facility] Last Admin: 02/13/20 21:03 Dose: 1 each Documented by: Carbidopa/Levodopa (Sinemet 25/250 -) 1 each PO 0700,1000,1300 [facility] Last Admin: 02/14/20 13:33 Dose: 1 each Documented by: Chlorhexidine Gluconate (Hibiclens For Decolonization -) 1 applic TP HS [facility] Last Admin: 02/13/20 21:03 Dose: 1 applic Documented by: Clonazepam (Klonopin -) 2 mg GT TID [facility] Last Admin: 09/22/20 13:32 Dose: 2 mg Documented by: Propofol (Diprivan -) 1,000,000 mcg in 100 mls @ 2.449 mls/hr IVPB TITR AMRITA; Protocol Last Admin: 02/14/20 11:25 Dose: 50 mcg/kg/min, 24.494 mls/hr Documented by: Fentanyl (Sublimaze Ivpb) 500 mcg in 100 mls @ 1 mls/hr IVPB TITR AMRITA Last Admin: 02/14/20 13:31 Dose: 100 mcg/hr, 20 mls/hr Documented by: Midazolam HCl (Midazolam 100mg/100ml-0.9%Nacl) 100 mg in 100 mls @ 1 mls/hr IVPB TITR AMRITA; Protocol Last Admin: 02/14/20 02:29 Dose: 8 mg/hr, 8 mls/hr Documented by: Dextrose/Sodium Chloride (Dextrose 5%-Normal Saline+20 Meq Kcl -) 20 meq in 1,000 mls @ 100 mls/hr IV ASDIR [facility] Last Admin: 02/14/20 08:03 Dose: 100 mls/hr Documented by: Lacosamide (Vimpat Injection -) 100 mg IVPB BID [facility] Last Admin: 02/14/20 09:10 Dose: 100 mg Documented by: Methylprednisolone Sodium Succinate (Solu-Medrol -) 40 mg IVPUSH Q8H-IV [facility]ITA Last Admin: 02/14/20 09:08 Dose: 40 mg Documented by: Pantoprazole Sodium (Protonix Iv) 40 mg IVPUSH BID [facility] Last Admin: 02/14/20 09:07 Dose: 40 mg Documented by: Sodium Chloride ([place] Nasal [place] -) 2 spray NS TID PRN PRN Reason: NASAL CONGESTION Tetrahydrozoline HCl (Visine -) 1 drop OU QID PRN PRN Reason: DRY EYES Last Admin: 02/14/20 13:53 Dose: 1 drop Documented by: Gen: intubated, minimally responsive Heart: RRR Lung: Vented, scattered rhonchi Abd: soft, nontender Ext: no edema Laboratory Results - last 24 hr 02/14/20 02/14/20 05:00 05:00 WBC 6.5 RBC 2.98 L Hgb 9.1 L Hct 27.3 L MCV 91.7 MCH 30.7 MCHC 33.5 RDW 15.5 Plt Count 270 MPV 7.8 Absolute Neuts (auto) 5.5 Neutrophils % 85.6 H Neutrophils % (Manual) 87.0 H Band Neutrophils % 0.0 Lymphocytes % 7.5 L Lymphocytes % (Manual) 7.0 L D Monocytes % 6.8 Monocytes % (Manual) 4 D Eosinophils % 0.1 D Eosinophils % (Manual) 0.0 Basophils % 0.0 Basophils % (Manual) 0.0 Myelocytes % (Man) 1 D Promyelocytes % (Man) 0 Blast Cells % (Manual) 0 Nucleated RBC % 0 Metamyelocytes 0 Hypochromia 0 Platelet Estimate Normal Polychromasia 0 Poikilocytosis 0 Anisocytosis 0 Microcytosis 0 Macrocytosis 0 Sodium 145 Potassium 2.9 L* Chloride 105 Carbon Dioxide 36 H Anion Gap 3 L BUN 7.2 Creatinine 0.3 L Est GFR (CKD-EPI)AfAm 161.45 Est GFR (CKD-EPI)NonAf 139.30 Random Glucose 116 H Calcium 7.3 L Phosphorus 1.7 L Magnesium 1.8 Total Bilirubin 0.4 AST 14 L ALT < 6 L Alkaline Phosphatase 67 Total Protein 4.5 L Albumin 1.5 L ASSESSMENT AND PLAN: Acute Hypoxic and Hypercapneic Respiratory Failure s/p Cardiopulmonary Arrest Suspect Anoxic Brain Injury Pneumonia suspect Aspiration Sepsis Lactic Acidosis Parkinsons Supranuclear Palsy GI Bleed - AC Mode of vent - Klonopin - Wean sedation as tolerated - ABX per ID - monitor urine output, creatinine - Hold enteral feeds due to GO bleeding - Normal transfusion thresholds - DVT/GI prophylaxis - continue ICU monitoring - poor overall prognosis, continue discussions regarding goals of care, advanced directives - will need tracheostomy pending family wishes, however Tracheostomy in this patient would not be an appropriate intervention given his overall condition/outcome. Family awaiting input from Neuro as to overall prognosis. Awaiting a call back from his son (Dr Kaplan). - I recommend comfort measures with compassionate extubation Dr Scott Critical care time spent in reviewing chart, evaluating patient and formulating plan 35 min
--- NOTE | 2020-02-14 14:36 | PN ---
Progress Note, Physician - Current Medication List Current Medications: Active Medications Acetaminophen (Tylenol Oral Solution -) 650 mg GT Q4H PRN PRN Reason: FEVER Last Admin: 01/31/20 03:14 Dose: 650 mg Documented by: Acetylcysteine (Mucomyst 20 Oral / Inh Use Only*) 200 mg NEB RQ4H [facility]ITA Last Admin: 02/14/20 12:05 Dose: Not Given Documented by: Amino Acids (Prosource No Carb Liquid Pkt) 30 ml PO BIDWM [facility]RITA Last Admin: 02/14/20 08:07 Dose: 30 ml Documented by: Carbidopa/Levodopa (Sinemet 25/250 -) 1 each PO 1600,1900,2200 [facility] Last Admin: 02/13/20 21:03 Dose: 1 each Documented by: Carbidopa/Levodopa (Sinemet 25/250 -) 1 each PO 0700,1000,1300 [facility] Last Admin: 02/14/20 13:33 Dose: 1 each Documented by: Chlorhexidine Gluconate (Hibiclens For Decolonization -) 1 applic TP HS [facility] Last Admin: 02/13/20 21:03 Dose: 1 applic Documented by: Clonazepam (Klonopin -) 2 mg GT TID [facility] Last Admin: 02/14/20 13:32 Dose: 2 mg Documented by: Propofol (Diprivan -) 1,000,000 mcg in 100 mls @ 2.449 mls/hr IVPB TITR [facility]; Protocol Last Admin: 02/14/20 11:25 Dose: 50 mcg/kg/min, 24.494 mls/hr Documented by: Fentanyl (Sublimaze Ivpb) 500 mcg in 100 mls @ 1 mls/hr IVPB TITR [facility] Last Admin: 02/14/20 13:31 Dose: 100 mcg/hr, 20 mls/hr Documented by: Midazolam HCl (Midazolam 100mg/100ml-0.9%Nacl) 100 mg in 100 mls @ 1 mls/hr IVPB TITR [facility]; Protocol Last Admin: 02/14/20 02:29 Dose: 8 mg/hr, 8 mls/hr Documented by: Dextrose/Sodium Chloride (Dextrose 5%-Normal Saline+20 Meq Kcl -) 20 meq in 1,000 mls @ 100 mls/hr IV ASDIR [facility] Last Admin: 02/14/20 08:03 Dose: 100 mls/hr Documented by: Lacosamide (Vimpat Injection -) 100 mg IVPB BID [facility] Last Admin: 02/14/20 09:10 Dose: 100 mg Documented by: Methylprednisolone Sodium Succinate (Solu-Medrol -) 40 mg IVPUSH Q8H-IV [facility] Last Admin: 02/14/20 09:08 Dose: 40 mg Documented by: Pantoprazole Sodium (Protonix Iv) 40 mg IVPUSH BID [facility] Last Admin: 02/14/20 09:07 Dose: 40 mg Documented by: Sodium Chloride ([place] Nasal [place] -) 2 spray NS TID PRN PRN Reason: NASAL CONGESTION Tetrahydrozoline HCl (Visine -) 1 drop OU QID PRN PRN Reason: DRY EYES Last Admin: 02/14/20 13:53 Dose: 1 drop Documented by: - Objective Vital Signs: Vital Signs Temperature 97.6 F 02/14/20 10:47 Pulse Rate 62 02/14/20 12:00 Respiratory Rate 18 02/14/20 12:06 Blood Pressure 126/74 02/14/20 12:00 O2 Sat by Pulse Oximetry (%) 99 02/14/20 12:06 Labs: CBC, BMP 02/14/20 05:00 02/14/20 05:00 INR, PTT INR 1.04 (0.83-1.09) 02/06/20 18:00
--- NOTE | 2020-02-14 15:46 | PN ---
Physical Exam: SUBJECTIVE: Patient seen and examined. No overnight events. OBJECTIVE: Vital Signs Period Temp Pulse Resp BP Sys/Villegas Pulse Ox Last 24 Hr 96.7 F-97.8 F 53-66 14-21 120-153/69-79 99-100 GENERAL: Intubated and sedated HEENT: NC,AT, pinpoint pupils, edema of lips LUNGS: Breath sounds equal, clear to auscultation bilaterally, no wheezes, no crackles, no accessory muscle use. decreased breath sounds bases b/l HEART: Regular rate and rhythm, S1, S2 without murmur, rub or gallop. ABDOMEN: Soft, nontender, nondistended, normoactive bowel sounds, no guarding, PEG tube in RUQ EXTREMITIES: 2+ pulses, warm, well-perfused, minimal intermittent myoclonic jerks in feet b/l. 1+ edema UE SKIN: Warm, dry, stage III ulcer on L buttock, no erythema, no discharge Neuro: no gag reflex appreciated Laboratory Results - last 24 hr 02/14/20 02/14/20 05:00 05:00 WBC 6.5 RBC 2.98 L Hgb 9.1 L Hct 27.3 L MCV 91.7 MCH 30.7 MCHC 33.5 RDW 15.5 Plt Count 270 MPV 7.8 Absolute Neuts (auto) 5.5 Neutrophils % 85.6 H Neutrophils % (Manual) 87.0 H Band Neutrophils % 0.0 Lymphocytes % 7.5 L Lymphocytes % (Manual) 7.0 L D Monocytes % 6.8 Monocytes % (Manual) 4 D Eosinophils % 0.1 D Eosinophils % (Manual) 0.0 Basophils % 0.0 Basophils % (Manual) 0.0 Myelocytes % (Man) 1 D Promyelocytes % (Man) 0 Blast Cells % (Manual) 0 Nucleated RBC % 0 Metamyelocytes 0 Hypochromia 0 Platelet Estimate Normal Polychromasia 0 Poikilocytosis 0 Anisocytosis 0 Microcytosis 0 Macrocytosis 0 Sodium 145 Potassium 2.9 L* Chloride 105 Carbon Dioxide 36 H Anion Gap 3 L BUN 7.2 Creatinine 0.3 L Est GFR (CKD-EPI)AfAm 161.45 Est GFR (CKD-EPI)NonAf 139.30 Random Glucose 116 H Calcium 7.3 L Phosphorus 1.7 L Magnesium 1.8 Total Bilirubin 0.4 AST 14 L ALT < 6 L Alkaline Phosphatase 67 Total Protein 4.5 L Albumin 1.5 L Active Medications Generic Name Dose Route Start Last Admin Trade Name Pa PRN Reason Stop Dose Admin Acetaminophen 650 mg 01/27/20 17:27 01/31/20 03:14 Tylenol Oral Solution - GT 650 mg Q4H PRN Administration FEVER Acetylcysteine 200 mg 01/29/20 16:12 02/14/20 12:05 Mucomyst 20 Oral / Inh Use Only* NEB Not Given RQ4H AMRITA Amino Acids 30 ml 02/03/20 08:00 02/14/20 08:07 Prosource No Carb Liquid Pkt PO 30 ml BIDWM [facility]RITA Administration Carbidopa/Levodopa 1 each 01/29/20 16:00 02/13/20 21:03 Sinemet 25/250 - PO 1 each 1600,1900,2200 AM[facility]ITA Administration Carbidopa/Levodopa 1 each 01/30/20 07:00 02/14/20 13:33 Sinemet 25/250 - PO 1 each 0700,1000,1300 AMRITA Administration Chlorhexidine Gluconate 1 applic 01/25/20 22:00 02/13/20 21:03 Hibiclens For Decolonization - TP 1 applic HS AMRITA Administration Clonazepam 2 mg 02/07/20 10:45 02/14/20 13:32 Klonopin - GT 2 mg TID AMRITA Administration Propofol 1,000,000 mcg in 100 mls @ 2.449 mls/hr 01/24/20 22:45 02/14/20 14:42 Diprivan - IVPB 50 mcg/kg/min TITR AMRITA 24.494 mls/hr Administration Protocol 5 MCG/KG/MIN Fentanyl 500 mcg in 100 mls @ 1 mls/hr 02/09/20 04:30 02/14/20 13:31 Sublimaze Ivpb IVPB 100 mcg/hr TITR [facility]RITA 20 mls/hr Administration 5 MCG/HR Midazolam HCl 100 mg in 100 mls @ 1 mls/hr 02/13/20 15:15 02/14/20 02:29 Midazolam 100mg/100ml-0.9%Nacl IVPB 8 mg/hr TITR [facility]RITA 8 mls/hr Administration Protocol 1 MG/HR Dextrose/Sodium Chloride 20 meq in 1,000 mls @ 100 mls/hr 02/14/20 07:15 02/14/20 08:03 Dextrose 5%-Normal Saline+20 Meq Kcl - IV 100 mls/hr ASDIR [facility] Administration Lacosamide 100 mg 02/13/20 22:00 02/14/20 09:10 Vimpat Injection - IVPB 100 mg BID [facility]ITA Administration Methylprednisolone Sodium Succinate 40 mg 01/31/20 13:00 02/14/20 09:08 Solu-Medrol - IVPUSH 40 mg Q8H-IV [facility]ITA Administration Pantoprazole Sodium 40 mg 02/07/20 22:00 02/14/20 09:07 Protonix Iv IVPUSH 40 mg BID AMRITA Administration Sodium Chloride 2 spray 01/30/20 06:54 [place] Nasal [place] - NS TID PRN NASAL CONGESTION Tetrahydrozoline HCl 1 drop 01/27/20 18:51 02/14/20 13:53 Visine - OU 1 drop QID PRN Administration DRY EYES ASSESSMENT/PLAN: 64 YO M PMH HTN, BPH, Parkinson's disease with Supranuclear palsy (with PEG tube in RUQ). Found to have PNA. Admitted to ICU for Acute hypoxic, hypercapnic respiratory failure 2/2 PNA. #Neuro - Re-intubated 01/30 after cardiac arrest, Intubated and sedated with midazolam 10 mg/h, propofol 50 mcg/kg/min and fentanl 100 mcg/h. - CT head (02/01): Mild chronic microvascular ischemic changes, possible 1.4cm focal infarct in posterior fossa - CT Head (02/02): Previously identified focal attenuation in cerebellum not definitely identified -Parkinson's disease. c/w Home dose sinemet -CTH: no significant change or acute pathology. Bilateral mastoid effusion/mastoiditis & bilateral otitis media. Moderate volume loss. -Bedside EEG: First phase: no electric seizure and slow background with no asymmetry consistent with history Anoxia. Second phase sedation stopped; pt clinically shaking, but with no electric seizure -continue with klonopin 2 mg Q8H for myoclonus Lans Santi syndrome -Neuro consult appreciated. DC'ed Depakote. STARTED Vimpat 100 mg IV #Pulm # Acute hypoxic, hypercapnic respiratory failure 2/2 PNA - S/p chest tube for pleural effusion/infiltrate --CXR (02/12): b/l pulmonary & pleural changes. Left greater than the right. Progressive infiltrate -Vent AC: Rate 18, TV 400, FIO2 50%, PEEP 7, Pplat 18. -Turned off all sedation in PM. Patient began to have rigorous myoclonic jerks within 2 minutes. Restarted sedation. - Mucomyst, Ventolin, Solumedrol 40 Q8H (01/30) #Cardio #HTN: hypotensive. will hold home medications affecting BP. maintain MAP >65. #ST elevation on EKG EKG: Sinus tachycardia. Left axis deviation. Right bundle branch block. ST elevation. 101 bpm, QTC 464. -Trop X2 negative -lactic acidosis resolved. -Cardiology consult (Dr. Jauregui): RBBB, possibly lateral ST elevations, no need for further cardiac work-up nor testing in this setting. -off of pressors #GI - PEG tube in place - Family prefers J tube to decrease risk of aspiration. Will consider consulting surgery/IR after possible trach -continue with protonix 40 mg BID IV push. monitor with serial CBCs, transfuse PRN #Heme - H/o bloody stools for past few days. continue holding Lovenox. -Hgb/Hct: 9.1/27.3 #ID -CXR (02/12): b/l pulmonary & pleural changes. Left greater than the right. Progressive infiltrate -blood culture neg X2 (01/23), ucx neg (01/23) -sputum cx: pseudomonas aeruginosa & staph aureus. Pseudomonas sensitive to zosyn. -c/w zosyn 4.5 g IVPB Q6H (01/23) #Renal - BUN/Cr 7.3/0.3 today - UA 1+ Protein with trace ketones -3244.4 mL I's/5350 ml O's/ -2105.6 ml balance - [place] in place. [place] catheter will be placed #FEN -D5 NS @ 100 ml/hr given pt is not receiving feeds -monitor lytes. phos repleted - feeds stopped 2/2 GI bleed #DVT PPX h/o blood in stool 2 days ago. continue holding Lovenox #Lines [place] ETT (01/24), (01/30 s/p cardiac arrest) RUQ peg (patient presented to ED with it) Right IJ triple lumen (02/09) #Dispo -maintain ICU -Family wants FULL code now -son Dr. Marj Kaplan: [phone] Visit type - Emergency Visit Emergency Visit: Yes ED Registration Date: 01/24/20 Care time: The patient presented to the Emergency Department on the above date and was hospitalized for further evaluation of their emergent condition. - New Patient This patient is new to me today: No - Critical Care Critical Care patient: No - Medication Review Med list reviewed for High Risk Meds patients 65 and older: Yes ATTENDING PHYSICIAN STATEMENT I saw and evaluated the patient. I reviewed the resident's note and discussed the case with the resident. I agree with the resident's findings and plan as documented. SUBJECTIVE: OBJECTIVE: ASSESSMENT AND PLAN:
[2020-02-14 16:18] VITALS: BMI 23.1
--- NOTE | 2020-02-14 16:30 | PN ---
Progress Note, Physician Chief Complaint: Acute Hypoxic and Hypercapneic Respiratory Failure Pneumonia suspect Aspiration Sepsis Lactic Acidosis Parkinsons Supranuclear Palsy History of Present Illness: 4 year old non-verbal male with PMH of Parkinson's disease with Supranuclear palsy with PEG tube placed. Last admission at [facility] was in November for Aspiration PNA. Pt unable to communicate and family not present at bedside. As per ER staff, pt was with AMS earlier today, pt is non verbal at baseline but is able to communicate minimally using hand gestures. EMS was called and pt was found to be hypoxic in the 80s on home oxygen of 2L, which improved to 90s after Ambu bagging. In the ER, he was sedated and intubated, septic workup initiated, and admitted to the ICU. In the ER pt again began to desat, CXR showed massive left sided effusion/infiltrate and chest tube was palced with improvement in SpO2. Pt extubated on 01/28/20, re-intubated s/p Cardiac arrest on 01/31/20 Seen by palliative medicine-Family wants everything done Off pressors + myoclonus off sedation and even on increased dosage of Clonazepam Feeds on hold CT head-not consistent with anoxic brain damage. EEG results:First 18 minutes of recording which showed no electric seziure and slow background with no asymmetry consistent with history Anoxia and poor prognosis. Second phase sedation stopped and patient was clinically shaking with no elec tric seizure again. Patient had myoclonic jerks under sedation. no attempt to turn off sedation toalexus vasquez. Consulted consult Dr. Shi. - Current Medication List Current Medications: Active Medications Acetaminophen (Tylenol Oral Solution -) 650 mg GT Q4H PRN PRN Reason: FEVER Last Admin: 01/31/20 03:14 Dose: 650 mg Documented by: Acetylcysteine (Mucomyst 20 Oral / Inh Use Only*) 200 mg NEB RQ4H AMRITA Last Admin: 02/14/20 15:55 Dose: Not Given Documented by: Amino Acids (Prosource No Carb Liquid Pkt) 30 ml PO BIDWM AMRITA Last Admin: 02/14/20 08:07 Dose: 30 ml Documented by: Carbidopa/Levodopa (Sinemet 25/250 -) 1 each PO 1600,1900,2200 [facility] Last Admin: 02/13/20 21:03 Dose: 1 each Documented by: Carbidopa/Levodopa (Sinemet 25/250 -) 1 each PO 0700,1000,1300 [facility] Last Admin: 02/14/20 13:33 Dose: 1 each Documented by: Chlorhexidine Gluconate (Hibiclens For Decolonization -) 1 applic TP HS [facility] Last Admin: 02/13/20 21:03 Dose: 1 applic Documented by: Clonazepam (Klonopin -) 2 mg GT TID [facility] Last Admin: 02/14/20 13:32 Dose: 2 mg Documented by: Propofol (Diprivan -) 1,000,000 mcg in 100 mls @ 2.449 mls/hr IVPB TITR [facility]; Protocol Last Admin: 02/14/20 14:42 Dose: 50 mcg/kg/min, 24.494 mls/hr Documented by: Fentanyl (Sublimaze Ivpb) 500 mcg in 100 mls @ 1 mls/hr IVPB TITR [facility] Last Admin: 02/14/20 13:31 Dose: 100 mcg/hr, 20 mls/hr Documented by: Midazolam HCl (Midazolam 100mg/100ml-0.9%Nacl) 100 mg in 100 mls @ 1 mls/hr IVPB TITR [facility]; Protocol Last Admin: 02/14/20 02:29 Dose: 8 mg/hr, 8 mls/hr Documented by: Dextrose/Sodium Chloride (Dextrose 5%-Normal Saline+20 Meq Kcl -) 20 meq in 1,000 mls @ 100 mls/hr IV ASDIR [facility] Last Admin: 02/14/20 08:03 Dose: 100 mls/hr Documented by: Lacosamide (Vimpat Injection -) 100 mg IVPB BID [facility] Last Admin: 02/14/20 09:10 Dose: 100 mg Documented by: Methylprednisolone Sodium Succinate (Solu-Medrol -) 40 mg IVPUSH Q8H-IV [facility] Last Admin: 02/14/20 09:08 Dose: 40 mg Documented by: Pantoprazole Sodium (Protonix Iv) 40 mg IVPUSH BID [facility] Last Admin: 02/14/20 09:07 Dose: 40 mg Documented by: Sodium Chloride ([place] Nasal [place] -) 2 spray NS TID PRN PRN Reason: NASAL CONGESTION Tetrahydrozoline HCl (Visine -) 1 drop OU QID PRN PRN Reason: DRY EYES Last Admin: 02/14/20 13:53 Dose: 1 drop Documented by: - Objective Vital Signs: Vital Signs Temperature 97.8 F 02/14/20 15:01 Pulse Rate 59 L 02/14/20 15:01 Respiratory Rate 18 02/14/20 15:52 Blood Pressure 143/79 02/14/20 15:01 O2 Sat by Pulse Oximetry (%) 100 02/14/20 15:52 Constitutional: Yes: Well Nourished, No Distress, Calm Cardiovascular: Yes: Regular Rate and Rhythm Respiratory: Yes: Regular, Mechanically Ventilated Gastrointestinal: Yes: Soft, Hypoactive Bowel Sounds Genitourinary: Yes: Merchant Present Musculoskeletal: Yes: Muscle Weakness Extremities: Yes: Other (contracted, generalized atrophy) Edema: No Peripheral Pulses WNL: Yes Integumentary: Yes: Pressure Ulcer (Stage 3 L buttock) Wound/Incision: Yes: Dressing Dry and Intact Neurological: Yes: Other (sedated) Labs: CBC, BMP 02/14/20 05:00 02/14/20 05:00 INR, PTT INR 1.04 (0.83-1.09) 02/06/20 18:00 Problem List - Problems (1) Pneumonia Assessment/Plan: -recurrent -ID consult -IV abx as per ID -IV medrol -Serial CXR's -Pulmonary on board -Bronchodilators -Mech vent -COVID 19 PCR negative -Cultures: Microbiology 01/27/20 07:00 Sputum - Endotrachea Suction/Ventilator Gram Stain - Final 01/25/20 14:00 Sputum - Endotrachea Suction/Ventilator Gram Stain - Final 01/25/20 14:00 Sputum - Endotrachea Suction/Ventilator Sputum Culture - Final Pseudomonas Aeruginosa Staphylococcus Aureus 01/24/20 23:05 Blood - Peripheral Venous Blood Culture - Preliminary NO GROWTH OBTAINED AFTER 48 HOURS, INCUBATION TO CONTINUE FOR 3 DAYS. 01/24/20 23:05 Blood - Peripheral Venous Blood Culture - Preliminary NO GROWTH OBTAINED AFTER 48 HOURS, INCUBATION TO CONTINUE FOR 3 DAYS. 01/24/20 23:15 Urine - Urine - Catheterized Urine Culture - Final NO GROWTH OBTAINED Problems reviewed: Yes Code(s): J18.9 - PNEUMONIA, UNSPECIFIED ORGANISM Qualifiers: Qualified Code(s): J18.9 - Pneumonia, unspecified organism (2) Respiratory failure Assessment/Plan: as above -CXR worse-progress opacification of left hemithorax -trach?Consulted Dr Shi -S/p chest tube for pleural effusion/infiltrate -Vent AC: Rate 14, TV 400, FIO2 60%, PEEP 5, Pplat 25. -No weaning attempted today -Mucomyst, Ventolin, Solumedrol 40 Q8H Problems reviewed: Yes Code(s): J96.90 - RESPIRATORY FAILURE, UNSP, UNSP W HYPOXIA OR HYPERCAPNIA Qualifiers: Qualified Code(s): J96.01 - Acute respiratory failure with hypoxia (3) Functional quadriplegia Problems reviewed: Yes Code(s): R53.2 - FUNCTIONAL QUADRIPLEGIA (4) Parkinson disease Assessment/Plan: -Continue Sinemet Problems reviewed: Yes Code(s): G20 - PARKINSON'S DISEASE (5) Supranuclear palsy Assessment/Plan: -Seen by neurology -CT head (02/01): Mild chronic microvascular ischemic changes, possible 1.4cm focal infarct in posterior fossa -CT Head (02/02): Previously identified focal attenuation in cerebellum not definitely identified Code(s): G23.1 - PROGRESSIVE SUPRANUCLEAR OPHTHALMOPLEGIA (6) Cardiac arrest Assessment/Plan: -re-intubated Problems reviewed: Yes Code(s): I46.9 - CARDIAC ARREST, CAUSE UNSPECIFIED (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 -Increased klonopin from 1 mg BID to 2 mg Q8H for myoclonus Lans Santi syndrome -Repeat CT head shows no change, no anoxic brain injury -EEG results:First 18 minutes of recording which showed no electric seziure and slow background with no asymmetry consistent with history Anoxia and poor prognosis. Second phase sedation stopped and patient was clinically shaking with no electric seizure again. -Neurology input would take the lead -Started on IV Vimpat 100 mg BID Problems reviewed: Yes Code(s): G25.3 - MYOCLONUS Assessment/Plan See problem list
[2020-02-14 18:12] LABS: BLOOD UREA NITROGEN 9.3 mg/dL (7-18); CALCIUM 7.5 mg/dL (8.5-10.1); CREATININE 0.3 mg/dL (0.55-1.3); POTASSIUM 3.3 mmol/L (3.5-5.1)
[2020-02-14] MEDS ORDERED: ALBUTEROL SO4 0.083% IH SOL 2.5 MG/3 ML VIAL.NEB. NEB ONE (19:54)
[2020-02-14] MEDS ORDERED: POTASSIUM CHLORIDE ORAL LIQUID 20 MEQ/15 ML PO ONE (21:25)
[2020-02-14] MEDS: CHLORHEXIDINE GLUCONATE 4% CLEANSER FOR DECOLONIZATION TP SCH (21:28)
[2020-02-15] MEDS: ACETYLCYSTEINE 20% 200MG/ML 4 ML VIAL *FOR ORAL / INH USE ONLY NEB SCH ×7 (00:09→23:30)
[2020-02-15] MEDS: FENTANYL IVPB 500 MCG/100 ML BAG IVPB SCH ×4 (01:00→19:00)
[2020-02-15] MEDS: methylPREDNISolone NA SUCC 40 MG/1 ML VIAL IVPUSH SCH ×3 (02:21→17:21)
[2020-02-15] MEDS: D5-NS + 20 MEQ KCL - 20 MEQ/1,000 ML INFUS.BAG IV SCH ×2 (03:12→10:46)
[2020-02-15] MEDS: PROPOFOL 1,000,000 MCG/100 ML VIAL IVPB SCH ×3 (03:12→23:16)
[2020-02-15] MEDS: clonazePAM 2 MG TABLET GT SCH ×3 (05:16→21:31)
[2020-02-15 06:14] LABS: ARTERIAL BLD GAS O2 SATURATION 97.8 mmHg (95-98); ARTERIAL BLOOD GAS PO2 95.3 mmHg (80-100); ARTERIAL BLOOD GAS pH 7.516 (7.350-7.450)
[2020-02-15 06:15] LABS: ALLENS TEST POSITIVE; VENT MODE A/C; VENT RATE 18
[2020-02-15] MEDS: CARBIDOPA/LEVODOPA 25/250 TABLET (FP) PO SCH ×6 (06:16→21:31)
[2020-02-15 06:52] LABS: BASO % 0.1 % (0-2.0); EOS % 0.1 % (0-4.5); HEMATOCRIT 27.6 % (35.4-49); HEMOGLOBIN 9.5 GM/dL (11.7-16.9); LYMPH % 8.1 % (8-40); MCH 31.8 pg (25.7-33.7); MCHC 34.3 g/dl (32.0-35.9); MEAN CELL VOLUME 92.6 fl (80-96); MONO % 6.4 % (3.8-10.2); NEUT % 85.3 % (42.8-82.8); PLATELET COUNT 253 K/MM3 (134-434); RBC 2.98 M/mm3 (4.00-5.60); RDW 15.3 % (11.9-15.9); WHITE BLOOD COUNT 6.1 K/mm3 (4.0-10.0)
[2020-02-15 07:09] LABS: ALBUMIN 1.6 g/dl (3.4-5.0); ALK PHOS 74 U/L (45-117); ANION GAP 3 MMOL/L (8-16); BILIRUBIN,TOTAL 0.6 mg/dL (0.2-1); CALCIUM 7.5 mg/dL (8.5-10.1); CHLORIDE 108 mmol/L (98-107); CO2 33 mmol/L (21-32); CREATININE 0.3 mg/dL (0.55-1.3); GLUCOSE,RANDOM 134 mg/dL (74-106); POTASSIUM 3.4 mmol/L (3.5-5.1); SGOT/AST 14 U/L (15-37); SODIUM 144 mmol/L (136-145); TOT PROT 4.7 g/dl (6.4-8.2)
[2020-02-15 07:15] LABS: SGPT/ALT < 6 U/L (13-61)
[2020-02-15] MEDS: AMINO ACIDS/PROTEIN HYDROLYS 30 ML LIQUID.PKT PO SCH ×2 (08:00→17:21)
[2020-02-15] MEDS: ALBUTEROL SO4 0.083% IH SOL 2.5 MG/3 ML VIAL.NEB. NEB SCH ×4 (08:12→19:46)
[2020-02-15] MEDS ORDERED: POTASSIUM PHOSPHATE 40 MM in DEXTROSE 5%-WATER - 250 ML IVPB ONE (09:00)
[2020-02-15] MEDS ORDERED: POTASSIUM PHOSPHATE 40 MM in DEXTROSE 5%-WATER - 500 ML IVPB ONE (09:00)
[2020-02-15] MEDS: Lacosamide 200 MG/20 ML VIAL IVPB SCH ×2 (09:26→21:31)
[2020-02-15] MEDS: PANTOPRAZOLE SODIUM 40 MG VIAL IVPUSH SCH ×2 (09:26→21:31)
--- NOTE | 2020-02-15 11:20 | PN ---
Progress Note, Physician Chief Complaint: Acute Hypoxic and Hypercapneic Respiratory Failure Pneumonia suspect Aspiration Sepsis Lactic Acidosis Parkinsons Supranuclear Palsy History of Present Illness: 4 year old non-verbal male with PMH of Parkinson's disease with Supranuclear palsy with PEG tube placed. Last admission at [facility] was in November for Aspiration PNA. Pt unable to communicate and family not present at bedside. As per ER staff, pt was with AMS earlier today, pt is non verbal at baseline but is able to communicate minimally using hand gestures. EMS was called and pt was found to be hypoxic in the 80s on home oxygen of 2L, which improved to 90s after Ambu bagging. In the ER, he was sedated and intubated, septic workup initiated, and admitted to the ICU. In the ER pt again began to desat, CXR showed massive left sided effusion/infiltrate and chest tube was palced with improvement in SpO2. Pt extubated on 01/28/20, re-intubated s/p Cardiac arrest on 01/31/20 Seen by palliative medicine-Family wants everything done Off pressors + myoclonus off sedation and even on increased dosage of Clonazepam Feeds on hold CT head-not consistent with anoxic brain damage. EEG results:First 18 minutes of recording which showed no electric seziure and slow background with no asymmetry consistent with history Anoxia and poor prognosis. Second phase sedation stopped and patient was clinically shaking with no elec tric seizure again. Patient had myoclonic jerks under sedation. no attempt to turn off sedation toalexus ay. Consulted consult Dr. Shi. 02/15/20: Pt tried to be weaned off sedation last evening with continuation of myoclonus jerks - Current Medication List Current Medications: Active Medications Acetaminophen (Tylenol Oral Solution -) 650 mg GT Q4H PRN PRN Reason: FEVER Last Admin: 01/31/20 03:14 Dose: 650 mg Documented by: Acetylcysteine (Mucomyst 20 Oral / Inh Use Only*) 200 mg NEB RQ4H AMRITA Last Admin: 02/15/20 08:11 Dose: 200 mg Documented by: Albuterol Sulfate (Ventolin 0.083% Nebulizer Soln -) 1 amp NEB RQID [facility] Last Admin: 02/15/20 08:12 Dose: 1 amp Documented by: Amino Acids (Prosource No Carb Liquid Pkt) 30 ml PO BIDWM [facility] Last Admin: 02/15/20 08:00 Dose: Not Given Documented by: Carbidopa/Levodopa (Sinemet 25/250 -) 1 each PO 1600,1900,2200 [facility] Last Admin: 02/14/20 21:28 Dose: 1 each Documented by: Carbidopa/Levodopa (Sinemet 25/250 -) 1 each PO 0700,1000,1300 [facility] Last Admin: 02/15/20 06:16 Dose: 1 each Documented by: Chlorhexidine Gluconate (Hibiclens For Decolonization -) 1 applic TP HS [facility] Last Admin: 02/14/20 21:28 Dose: 1 applic Documented by: Clonazepam (Klonopin -) 2 mg GT TID [facility] Last Admin: 02/15/20 05:16 Dose: 2 mg Documented by: Propofol (Diprivan -) 1,000,000 mcg in 100 mls @ 2.449 mls/hr IVPB TITR [facility]; Protocol Last Admin: 02/15/20 09:00 Dose: 40 mcg/kg/min, 19.595 mls/hr Documented by: Fentanyl (Sublimaze Ivpb) 500 mcg in 100 mls @ 1 mls/hr IVPB TITR [facility] Last Admin: 02/15/20 06:57 Dose: 100 mcg/hr, 20 mls/hr Documented by: Midazolam HCl (Midazolam 100mg/100ml-0.9%Nacl) 100 mg in 100 mls @ 1 mls/hr IVPB TITR [facility]; Protocol Last Titration: 02/15/20 03:15 Dose: 8 mg/hr, 8 mls/hr Documented by: Dextrose/Sodium Chloride (Dextrose 5%-Normal Saline+20 Meq Kcl -) 20 meq in 1,000 mls @ 100 mls/hr IV ASDIR [facility] Last Admin: 02/15/20 10:46 Dose: 100 mls/hr Documented by: Potassium Phosphate 40 mm/ (Dextrose) 513.3333 mls @ 85.556 mls/hr IVPB ONCE ONE Stop: 02/15/20 14:59 Last Admin: 02/15/20 09:28 Dose: 85.556 mls/hr Documented by: Lacosamide (Vimpat Injection -) 100 mg IVPB BID [facility] Last Admin: 02/15/20 09:26 Dose: 100 mg Documented by: Methylprednisolone Sodium Succinate (Solu-Medrol -) 40 mg IVPUSH Q8H-IV [facility] Last Admin: 02/15/20 09:26 Dose: 40 mg Documented by: Pantoprazole Sodium (Protonix Iv) 40 mg IVPUSH BID [facility] Last Admin: 02/15/20 09:26 Dose: 40 mg Documented by: Sodium Chloride ([place] Nasal [place] -) 2 spray NS TID PRN PRN Reason: NASAL CONGESTION Tetrahydrozoline HCl (Visine -) 1 drop OU QID PRN PRN Reason: DRY EYES Last Admin: 02/14/20 13:53 Dose: 1 drop Documented by: - Objective Vital Signs: Vital Signs Temperature 96.7 F L 02/15/20 08:00 Pulse Rate 58 L 02/15/20 08:10 Respiratory Rate 18 02/15/20 08:24 Blood Pressure 113/68 02/15/20 08:00 O2 Sat by Pulse Oximetry (%) 100 02/15/20 08:24 Constitutional: Yes: Well Nourished, No Distress, Calm Cardiovascular: Yes: Regular Rate and Rhythm Respiratory: Yes: Regular, Mechanically Ventilated Gastrointestinal: Yes: Soft, Hypoactive Bowel Sounds Genitourinary: Yes: Merchant Present Edema: No Peripheral Pulses WNL: Yes Neurological: Yes: Other (sedated) Labs: CBC, BMP 02/15/20 05:30 02/15/20 05:30 INR, PTT INR 1.04 (0.83-1.09) 02/06/20 18:00 Problem List - Problems (1) Pneumonia Assessment/Plan: -recurrent -ID consult -IV abx as per ID -IV medrol -Serial CXR's -Pulmonary on board -Bronchodilators -[facility] vent -COVID 19 PCR negative -Cultures: Microbiology 01/27/20 07:00 Sputum - Endotrachea Suction/Ventilator Gram Stain - Final 01/25/20 14:00 Sputum - Endotrachea Suction/Ventilator Gram Stain - Final 01/25/20 14:00 Sputum - Endotrachea Suction/Ventilator Sputum Culture - Final Pseudomonas Aeruginosa Staphylococcus Aureus 01/24/20 23:05 Blood - Peripheral Venous Blood Culture - Preliminary NO GROWTH OBTAINED AFTER 48 HOURS, INCUBATION TO C ONTINUE FOR 3 DAYS. 01/24/20 23:05 Blood - Peripheral Venous Blood Culture - Preliminary NO GROWTH OBTAINED AFTER 48 HOURS, INCUBATION TO CO NTINUE FOR 3 DAYS. 01/24/20 23:15 Urine - Urine - Catheterized Urine Culture - Final NO GROWTH OBTAINED Problems reviewed: Yes Code(s): J18.9 - PNEUMONIA, UNSPECIFIED ORGANISM Qualifiers: Pneumonia type: due to unspecified organism Laterality: bilateral Lung location: unspecified part of lung Qualified Code(s): J18.9 - Pneumonia, unspecified organism (2) Respiratory failure Assessment/Plan: as above -CXR worse-progress opacification of left hemithorax -trach?Consulted Dr Shi -S/p chest tube for pleural effusion/infiltrate -Vent AC: Rate 14, TV 400, FIO2 60%, PEEP 5, Pplat 25. 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
[2020-02-15 12:02] LABS: ANISOCYTOSIS 1+; PLATELET ESTIMATE ADEQUATE
--- NOTE | 2020-02-15 12:02 | PN ---
Progress Note, Physician - Current Medication List Current Medications: Active Medications Acetaminophen (Tylenol Oral Solution -) 650 mg GT Q4H PRN PRN Reason: FEVER Last Admin: 01/31/20 03:14 Dose: 650 mg Documented by: Acetylcysteine (Mucomyst 20 Oral / Inh Use Only*) 200 mg NEB RQ4H [facility] Last Admin: 02/15/20 08:11 Dose: 200 mg Documented by: Albuterol Sulfate (Ventolin 0.083% Nebulizer Soln -) 1 amp NEB RQID [facility] Last Admin: 02/15/20 08:12 Dose: 1 amp Documented by: Amino Acids (Prosource No Carb Liquid Pkt) 30 ml PO BIDWM [facility] Last Admin: 02/15/20 08:00 Dose: Not Given Documented by: Carbidopa/Levodopa (Sinemet 25/250 -) 1 each PO 1600,1900,2200 [facility] Last Admin: 02/14/20 21:28 Dose: 1 each Documented by: Carbidopa/Levodopa (Sinemet 25/250 -) 1 each PO 0700,1000,1300 [facility] Last Admin: 02/15/20 11:38 Dose: 1 each Documented by: Chlorhexidine Gluconate (Hibiclens For Decolonization -) 1 applic TP HS [facility] Last Admin: 02/14/20 21:28 Dose: 1 applic Documented by: Clonazepam (Klonopin -) 2 mg GT TID [facility] Last Admin: 02/15/20 05:16 Dose: 2 mg Documented by: Propofol (Diprivan -) 1,000,000 mcg in 100 mls @ 2.449 mls/hr IVPB TITR [facility]; Protocol Last Admin: 02/15/20 09:00 Dose: 40 mcg/kg/min, 19.595 mls/hr Documented by: Fentanyl (Sublimaze Ivpb) 500 mcg in 100 mls @ 1 mls/hr IVPB TITR [facility] Last Admin: 02/15/20 06:57 Dose: 100 mcg/hr, 20 mls/hr Documented by: Midazolam HCl (Midazolam 100mg/100ml-0.9%Nacl) 100 mg in 100 mls @ 1 mls/hr IVPB TITR [facility]; Protocol Last Titration: 02/15/20 03:15 Dose: 8 mg/hr, 8 mls/hr Documented by: Dextrose/Sodium Chloride (Dextrose 5%-Normal Saline+20 Meq Kcl -) 20 meq in 1,000 mls @ 100 mls/hr IV ASDIR [facility] Last Admin: 02/15/20 10:46 Dose: 100 mls/hr Documented by: Potassium Phosphate 40 mm/ (Dextrose) 513.3333 mls @ 85.556 mls/hr IVPB ONCE ONE Stop: 02/15/20 14:59 Last Admin: 02/15/20 09:28 Dose: 85.556 mls/hr Documented by: Lacosamide (Vimpat Injection -) 100 mg IVPB BID [facility] Last Admin: 02/15/20 09:26 Dose: 100 mg Documented by: Methylprednisolone Sodium Succinate (Solu-Medrol -) 40 mg IVPUSH Q8H-IV [facility] Last Admin: 02/15/20 09:26 Dose: 40 mg Documented by: Pantoprazole Sodium (Protonix Iv) 40 mg IVPUSH BID [facility] Last Admin: 02/15/20 09:26 Dose: 40 mg Documented by: Sodium Chloride ([place] Nasal [place] -) 2 spray NS TID PRN PRN Reason: NASAL CONGESTION Tetrahydrozoline HCl (Visine -) 1 drop OU QID PRN PRN Reason: DRY EYES Last Admin: 02/14/20 13:53 Dose: 1 drop Documented by: - Objective Vital Signs: Vital Signs Temperature 96.2 F L 02/15/20 10:00 Pulse Rate 53 L 02/15/20 10:00 Respiratory Rate 15 02/15/20 11:24 Blood Pressure 121/68 02/15/20 10:00 O2 Sat by Pulse Oximetry (%) 100 02/15/20 11:24 Labs: CBC, BMP 02/15/20 05:30 02/15/20 05:30 INR, PTT INR 1.04 (0.83-1.09) 02/06/20 18:00
--- NOTE | 2020-02-15 12:49 | PN ---
Teaching Attending Note Name of Resident: Errol Franco ATTENDING PHYSICIAN STATEMENT I saw and evaluated the patient. I reviewed the resident's note and discussed the case with the resident. I agree with the resident's findings and plan as documented. SUBJECTIVE: Pt seen and examined in the ICU. Intubated, sedated. No pressors. Fio2 40%. Stil l with increased myoclonic activity even with brief interruption in sedation. Goals of care discussions ongoing. OBJECTIVE: Vital Signs Period Temp Pulse Resp BP Sys/Villegas Pulse Ox Last 24 Hr 96.2 F-98.9 F 48-68 15-21 107-156/64-89 94-100 Intake & Output 02/12/20 02/13/20 02/14/20 02/15/20 23:59 23:59 23:59 23:59 Intake Total 3783 3244.4 3970.8 1152 Output Total 7100 5350 4350 Balance -3317 -2105.6 -379.2 1152 Weight 74.752 kg 72.076 kg 71.486 kg 71.395 kg Gen: intubated, sedated Heart: RRR Lung: scattered rhonchi Abd: soft, nontender Ext: no edema CBC, BMP 02/15/20 05:30 02/15/20 05:30 Active Medications Acetaminophen (Tylenol Oral Solution -) 650 mg GT Q4H PRN PRN Reason: FEVER Last Admin: 01/31/20 03:14 Dose: 650 mg Documented by: Acetylcysteine (Mucomyst 20 Oral / Inh Use Only*) 200 mg NEB RQ4H [facility] Last Admin: 02/15/20 08:11 Dose: 200 mg Documented by: Albuterol Sulfate (Ventolin 0.083% Nebulizer Soln -) 1 amp NEB RQID [facility] Last Admin: 02/15/20 08:12 Dose: 1 amp Documented by: Amino Acids (Prosource No Carb Liquid Pkt) 30 ml PO BIDWM [facility] Last Admin: 02/15/20 08:00 Dose: Not Given Documented by: Carbidopa/Levodopa (Sinemet 25/250 -) 1 each PO 1600,1900,2200 [facility] Last Admin: 02/14/20 21:28 Dose: 1 each Documented by: Carbidopa/Levodopa (Sinemet 25/250 -) 1 each PO 0700,1000,1300 [facility] Last Admin: 02/15/20 11:38 Dose: 1 each Documented by: Chlorhexidine Gluconate (Hibiclens For Decolonization -) 1 applic TP HS [facility] Last Admin: 02/14/20 21:28 Dose: 1 applic Documented by: Clonazepam (Klonopin -) 2 mg GT TID [facility] Last Admin: 02/15/20 05:16 Dose: 2 mg Documented by: Propofol (Diprivan -) 1,000,000 mcg in 100 mls @ 2.449 mls/hr IVPB TITR [facility]; Protocol Last Admin: 02/15/20 09:00 Dose: 40 mcg/kg/min, 19.595 mls/hr Documented by: Fentanyl (Sublimaze Ivpb) 500 mcg in 100 mls @ 1 mls/hr IVPB TITR [facility] Last Admin: 02/15/20 06:57 Dose: 100 mcg/hr, 20 mls/hr Documented by: Midazolam HCl (Midazolam 100mg/100ml-0.9%Nacl) 100 mg in 100 mls @ 1 mls/hr IVPB TITR [facility]; Protocol Last Titration: 02/15/20 03:15 Dose: 8 mg/hr, 8 mls/hr Documented by: Dextrose/Sodium Chloride (Dextrose 5%-Normal Saline+20 Meq Kcl -) 20 meq in 1,000 mls @ 100 mls/hr IV ASDIR [facility] Last Admin: 02/15/20 10:46 Dose: 100 mls/hr Documented by: Potassium Phosphate 40 mm/ (Dextrose) 513.3333 mls @ 85.556 mls/hr IVPB ONCE ONE Stop: 02/15/20 14:59 Last Admin: 02/15/20 09:28 Dose: 85.556 mls/hr Documented by: Lacosamide (Vimpat Injection -) 100 mg IVPB BID [facility] Last Admin: 02/15/20 09:26 Dose: 100 mg Documented by: Methylprednisolone Sodium Succinate (Solu-Medrol -) 40 mg IVPUSH Q8H-IV [facility] Last Admin: 02/15/20 09:26 Dose: 40 mg Documented by: Pantoprazole Sodium (Protonix Iv) 40 mg IVPUSH BID [facility] Last Admin: 02/15/20 09:26 Dose: 40 mg Documented by: Sodium Chloride ([place] Nasal [place] -) 2 spray NS TID PRN PRN Reason: NASAL CONGESTION Tetrahydrozoline HCl (Visine -) 1 drop OU QID PRN PRN Reason: DRY EYES Last Admin: 02/14/20 13:53 Dose: 1 drop Documented by: ASSESSMENT AND PLAN: Acute Hypoxic and Hypercapneic Respiratory Failure s/p Cardiopulmonary Arrest Suspect Anoxic Brain Injury Pneumonia suspect Aspiration Sepsis Lactic Acidosis r/o [place] Parkinsons Supranuclear Palsy - titrate up klonopin - continue antibiotics - monitor urine output, creatinine - titrate Fio2, PEEP to keep Spo2 >90% - continue volume assist control - enteral feeds - DVT/GI prophylaxis - continue ICU monitoring - poor overall prognosis, continue discussions regarding goals of care, advanced directives - will need tracheostomy pending family wishes - recommend comfort measures critical care time spent in reviewing chart, evaluating patient and formulating plan 35 min
--- NOTE | 2020-02-15 14:44 | PN ---
Physical Exam: SUBJECTIVE: Patient seen and examined. Overnight, patient had 1 dark bloody stool. OBJECTIVE: Vital Signs Period Temp Pulse Resp BP Sys/Villegas Pulse Ox Last 24 Hr 96.5 F-98.9 F 48-68 15-21 107-156/64-89 94-100 GENERAL: Intubated and sedated HEENT: NC,AT, pinpoint pupils, edema of lips LUNGS: Breath sounds equal, clear to auscultation bilaterally, no wheezes, no crackles, no accessory muscle use. decreased breath sounds bases b/l HEART: Regular rate and rhythm, S1, S2 without murmur, rub or gallop. ABDOMEN: Soft, nontender, nondistended, normoactive bowel sounds, no guarding, PEG tube in RUQ EXTREMITIES: 2+ pulses, warm, well-perfused, minimal intermittent myoclonic jerks in feet b/l. 1+ edema UE SKIN: Warm, dry, stage III ulcer on L buttock, no erythema, no discharge Neuro: no cough reflex appreciated Laboratory Results - last 24 hr 02/14/20 02/15/20 02/15/20 16:30 05:30 05:30 WBC 6.1 RBC 2.98 L Hgb 9.5 L Hct 27.6 L MCV 92.6 MCH 31.8 MCHC 34.3 RDW 15.3 Plt Count 253 MPV 8.0 Absolute Neuts (auto) 5.2 Total Counted 100 Neutrophils % 85.3 H Neutrophils % (Manual) 85.0 H Lymphocytes % 8.1 Lymphocytes % (Manual) 6.0 L Monocytes % 6.4 Monocytes % (Manual) 7 Eosinophils % 0.1 Basophils % 0.1 D Myelocytes % (Man) 2 D Nucleated RBC % 0 Platelet Estimate Adequate Anisocytosis 1+ Anticoagulation Therapy Puncture Site Patient Temperature ABG pH ABG pCO2 ABG pO2 ABG HCO3 ABG O2 Sat (Measured) ABG O2 Content ABG Base Excess Darion Test Patient On Oxygen O2 Delivery Device Oxygen Flow Rate Vent Mode Vent Rate Mechanical Rate PEEP Pressure Support Vent Sodium 144 144 Potassium 3.3 L 3.4 L Chloride 106 108 H Carbon Dioxide 36 H 33 H Anion Gap 3 L 3 L BUN 9.3 9.0 Creatinine 0.3 L 0.3 L Est GFR (CKD-EPI)AfAm 161.45 161.45 Est GFR (CKD-EPI)NonAf 139.30 139.30 Random Glucose 111 H 134 H Calcium 7.5 L 7.5 L Phosphorus 2.0 L Magnesium 2.0 Total Bilirubin 0.6 AST 14 L ALT < 6 L Alkaline Phosphatase 74 Total Protein 4.7 L Albumin 1.6 L 02/15/20 06:00 WBC RBC Hgb Hct MCV MCH MCHC RDW Plt Count MPV Absolute Neuts (auto) Total Counted Neutrophils % Neutrophils % (Manual) Lymphocytes % Lymphocytes % (Manual) Monocytes % Monocytes % (Manual) Eosinophils % Basophils % Myelocytes % (Man) Nucleated RBC % Platelet Estimate Anisocytosis Anticoagulation Therapy No Result Required. Puncture Site Right radial Patient Temperature No Result Required. ABG pH 7.516 H ABG pCO2 39.80 ABG pO2 95.3 ABG HCO3 31.5 H ABG O2 Sat (Measured) 97.8 ABG O2 Content No Result Required. ABG Base Excess 8.0 H Darion Test Positive Patient On Oxygen No Result Required. O2 Delivery Device No Result Required. Oxygen Flow Rate 40 Vent Mode A/c Vent Rate 18 Mechanical Rate No Result Required. PEEP 7.0 Pressure Support Vent 400 Sodium Potassium Chloride Carbon Dioxide Anion Gap BUN Creatinine Est GFR (CKD-EPI)AfAm Est GFR (CKD-EPI)NonAf Random Glucose Calcium Phosphorus Magnesium Total Bilirubin AST ALT Alkaline Phosphatase Total Protein Albumin Active Medications Generic Name Dose Route Start Last Admin Trade Name Freq PRN Reason Stop Dose Admin Acetaminophen 650 mg 01/27/20 17:27 01/31/20 03:14 Tylenol Oral Solution - GT 650 mg Q4H PRN Administration FEVER Acetylcysteine 200 mg 01/29/20 16:12 02/15/20 08:11 Mucomyst 20 Oral / Inh Use Only* NEB 200 mg RQ4H [facility] Administration Albuterol Sulfate 1 amp 02/15/20 08:00 02/15/20 08:12 Ventolin 0.083% Nebulizer Soln - NEB 1 amp RQID [facility] Administration Amino Acids 30 ml 02/03/20 08:00 02/15/20 08:00 Prosource No Carb Liquid Pkt PO Not Given BIDWM [facility] Carbidopa/Levodopa 1 each 01/29/20 16:00 02/14/20 21:28 Sinemet 25/250 - PO 1 each 1600,1900,2200 [facility] Administration Carbidopa/Levodopa 1 each 01/30/20 07:00 02/15/20 11:38 Sinemet 25/250 - PO 1 each 0700,1000,1300 [facility] Administration Chlorhexidine Gluconate 1 applic 01/25/20 22:00 02/14/20 21:28 Hibiclens For Decolonization - TP 1 applic HS [facility] Administration Clonazepam 2 mg 02/07/20 10:45 02/15/20 05:16 Klonopin - GT 2 mg TID [facility] Administration Propofol 1,000,000 mcg in 100 mls @ 2.449 mls/hr 01/24/20 22:45 02/15/20 09:00 Diprivan - IVPB 40 mcg/kg/min TITR [facility] 19.595 mls/hr Administration Protocol 5 MCG/KG/MIN Fentanyl 500 mcg in 100 mls @ 1 mls/hr 02/09/20 04:30 02/15/20 06:57 Sublimaze Ivpb IVPB 100 mcg/hr TITR [facility] 20 mls/hr Administration 5 MCG/HR Midazolam HCl 100 mg in 100 mls @ 1 mls/hr 02/13/20 15:15 02/15/20 03:15 Midazolam 100mg/100ml-0.9%Nacl IVPB 8 mg/hr TITR [facility] 8 mls/hr Titration Protocol 1 MG/HR Dextrose/Sodium Chloride 20 meq in 1,000 mls @ 100 mls/hr 02/14/20 07:15 02/15/20 10:46 Dextrose 5%-Normal Saline+20 Meq Kcl - IV 100 mls/hr ASDIR [facility] Administration Potassium Phosphate 40 mm/ 513.3333 mls @ 85.556 mls/hr 02/15/20 09:00 02/15/20 09:28 Dextrose IVPB 02/15/20 14:59 85.556 mls/hr ONCE ONE Administration Lacosamide 100 mg 02/13/20 22:00 02/15/20 09:26 Vimpat Injection - IVPB 100 mg BID [facility] Administration Methylprednisolone Sodium Succinate 40 mg 01/31/20 13:00 02/15/20 09:26 Solu-Medrol - IVPUSH 40 mg Q8H-IV [facility] Administration Pantoprazole Sodium 40 mg 02/07/20 22:00 02/15/20 09:26 Protonix Iv IVPUSH 40 mg BID [facility] Administration Sodium Chloride 2 spray 01/30/20 06:54 [place] Nasal [place] - NS TID PRN NASAL CONGESTION Tetrahydrozoline HCl 1 drop 01/27/20 18:51 02/14/20 13:53 Visine - OU 1 drop QID PRN Administration DRY EYES ASSESSMENT/PLAN: 64 YO M PMH HTN, BPH, Parkinson's disease with Supranuclear palsy (with PEG tube in RUQ). Found to have PNA. Admitted to ICU for Acute hypoxic, hypercapnic respiratory failure 2/2 PNA. #Neuro - Re-intubated 01/30 after cardiac arrest, Intubated and sedated with midazolam 8 mg/h, propofol 40 mcg/kg/min and fentanl 100 mcg/h. - CT head (02/01): Mild chronic microvascular ischemic changes, possible 1.4cm focal infarct in posterior fossa - CT Head (02/02): Previously identified focal attenuation in cerebellum not definitely identified -Parkinson's disease. c/w Home dose sinemet -CTH: no significant change or acute pathology. Bilateral mastoid effusion/mastoiditis & bilateral otitis media. Moderate volume loss. -Bedside EEG: First phase: no electric seizure and slow background with no asymmetry consistent with history Anoxia. 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 Left greater than the right. Progressive infiltrate -Vent AC: Rate 18, TV 400, FIO2 40%, PEEP 7, Pplat 18. - Patient had myoclonic jerks with full sedation. - Mucomyst, Ventolin, Solumedrol 40 Q8H (01/30) -discussed with Dr. Bailey. If family wants trach, he will not be available this week, but would be available next week. He recommended Dr. Kun Gambino if trach needed this week. #Cardio #HTN: hypotensive. will hold home medications affecting BP. maintain MAP >65. #ST elevation on EKG EKG: Sinus tachycardia. Left axis deviation. Right bundle branch block. ST eleva tion. 101 bpm, QTC 464. -Trop X2 negative -lactic acidosis resolved. -Cardiology consult (Dr. Jauregui): RBBB, possibly lateral ST elevations, no need for further cardiac work-up nor testing in this setting. -off of pressors #GI - PEG tube in place - Family prefers J tube to decrease risk of aspiration. Will consider consulting surgery/IR after possible trach -continue with protonix 40 mg BID IV push. monitor with serial CBCs, transfuse PRN #Heme - bloody stool overnight. continue holding Lovenox. -Hgb/Hct improved from 9.1/27.3 to 9.5/27.6 #ID -CXR (02/12): b/l pulmonary & pleural changes. Left greater than the right. Progressive infiltrate -blood culture neg X2 (01/23), ucx neg (01/23) -sputum cx: pseudomonas aeruginosa & staph aureus. Pseudomonas sensitive to zosyn. -s/p zosyn 4.5 g IVPB Q6H (01/23-02/12). Discussed with ID. #Renal - BUN/Cr 9/0.3 today - UA 1+ Protein with trace ketones -3970.8 mL I's/4350 ml O's/ -379.2 ml balance #FEN -D5 NS @ 100 ml/hr given pt is not receiving feeds -monitor lytes. - feeds stopped 2/2 GI bleed #DVT PPX blood in stool again. continue holding Lovenox #Lines mensah ETT (01/24), (01/30 s/p cardiac arrest) RUQ peg (patient presented to ED with it) Right IJ triple lumen (02/09) #Dispo -maintain ICU -Family wants FULL code now -son Dr. Mcmahan Shamardelphine: [phone]. He wishes only to discuss with attending, NOT with residents. -Family will make a decision about trach vs compassionate extubation after completely taking patient off sedation for assessment of his status. . Visit type - Emergency Visit Emergency Visit: Yes ED Registration Date: 01/24/20 Care time: The patient presented to the Emergency Department on the above date and was hospitalized for further evaluation of their emergent condition. - New Patient This patient is new to me today: No - Critical Care Critical Care patient: No - Medication Review Med list reviewed for High Risk Meds patients 65 and older: Yes ATTENDING PHYSICIAN STATEMENT I saw and evaluated the patient. I reviewed the resident's note and discussed the case with the resident. I agree with the resident's findings and plan as documented. SUBJECTIVE: OBJECTIVE: ASSESSMENT AND PLAN:
[2020-02-15] MEDS: MIDAZOLAM IN 0.9 % SOD.CHLORID 100 MG/100 ML PLAST..BAG IVPB SCH (16:00)
[2020-02-15] MEDS: CHLORHEXIDINE GLUCONATE 4% CLEANSER FOR DECOLONIZATION TP SCH (21:30)
[2020-02-16] MEDS: FENTANYL IVPB 500 MCG/100 ML BAG IVPB SCH
[2020-02-16] MEDS: D5-NS + 20 MEQ KCL - 20 MEQ/1,000 ML INFUS.BAG IV SCH
[2020-02-16] MEDS: methylPREDNISolone NA SUCC 40 MG/1 ML VIAL IVPUSH SCH ×2 (02:33→09:32)
[2020-02-16] MEDS: PROPOFOL 1,000,000 MCG/100 ML VIAL IVPB SCH ×2 (02:52→16:00)
[2020-02-16] MEDS: MIDAZOLAM IN 0.9 % SOD.CHLORID 100 MG/100 ML PLAST..BAG IVPB SCH ×2 (04:45→16:00)
[2020-02-16] MEDS: ACETYLCYSTEINE 20% 200MG/ML 4 ML VIAL *FOR ORAL / INH USE ONLY NEB SCH ×3 (05:00→11:38)
[2020-02-16] MEDS: FENTANYL NS IVPB 500 MCG/100 ML BAG IVPB SCH ×4 (05:26→20:15)
[2020-02-16] MEDS: clonazePAM 2 MG TABLET GT SCH ×3 (06:15→21:06)
[2020-02-16] MEDS: CARBIDOPA/LEVODOPA 25/250 TABLET (FP) PO SCH ×6 (06:16→21:06)
[2020-02-16 07:18] LABS: HEMATOCRIT 28.7 % (35.4-49); HEMOGLOBIN 9.5 GM/dL (11.7-16.9); MEAN PLT VOLUME 7.9 fl (7.5-11.1); PLATELET COUNT 241 K/MM3 (134-434); RBC 3.05 M/mm3 (4.00-5.60); RDW 15.7 % (11.9-15.9); WHITE BLOOD COUNT 6.8 K/mm3 (4.0-10.0)
[2020-02-16 07:40] LABS: ALBUMIN 1.7 g/dl (3.4-5.0); CREATININE 0.3 mg/dL (0.55-1.3); MAGNESIUM 1.9 mg/dL (1.8-2.4); PHOSPHOROUS 2.4 mg/dL (2.5-4.9); POTASSIUM 3.6 mmol/L (3.5-5.1)
[2020-02-16 07:59] LABS: CALCIUM 5.9 mg/dL (8.5-10.1)
[2020-02-16] MEDS: ALBUTEROL SO4 0.083% IH SOL 2.5 MG/3 ML VIAL.NEB. NEB SCH ×4 (08:16→20:24)
[2020-02-16] MEDS: AMINO ACIDS/PROTEIN HYDROLYS 30 ML LIQUID.PKT PO SCH ×2 (08:34→17:32)
--- NOTE | 2020-02-16 08:40 | PN ---
Progress Note, Physician Chief Complaint: Acute Hypoxic and Hypercapneic Respiratory Failure Pneumonia suspect Aspiration Sepsis Lactic Acidosis Parkinsons Supranuclear Palsy History of Present Illness: 4 year old non-verbal male with PMH of Parkinson's disease with Supranuclear palsy with PEG tube placed. Last admission at [facility] was in November for Aspiration PNA. Pt unable to communicate and family not present at bedside. As per ER staff, pt was with AMS earlier today, pt is non verbal at baseline but is able to communicate minimally using hand gestures. EMS was called and pt was found to be hypoxic in the 80s on home oxygen of 2L, which improved to 90s after Ambu bagging. In the ER, he was sedated and intubated, septic workup initiated, and admitted to the ICU. In the ER pt again began to desat, CXR showed massive left sided effusion/infiltrate and chest tube was palced with improvement in SpO2. Pt extubated on 01/28/20, re-intubated s/p Cardiac arrest on 01/31/20 Seen by palliative medicine-Family wants everything done Off pressors + myoclonus off sedation and even on increased dosage of Clonazepam Feeds on hold CT head-not consistent with anoxic brain damage. EEG results:First 18 minutes of recording which showed no electric seziure and slow background with no asymmetry consistent with history Anoxia and poor prognosis. Second phase sedation stopped and patient was clinically shaking with no elec tric seizure again. Patient had myoclonic jerks under sedation. no attempt to turn off sedation tod ay. Consulted consult Dr. Shi. 02/15/20: Pt tried to be weaned off sedation last evening with continuation of myoclonus jerks Son only wants to speak to an attending regarding updates and trach 02/16/20: In communication with Neurology and ICU attending, it has been decided that pt is transferred to [facility] neuro ICU under Dr Zachary Green MD for further evaluation and treatment. Pt's son is in agreement. H/H is stable - Current Medication List Current Medications: Active Medications Acetaminophen (Tylenol Oral Solution -) 650 mg GT Q4H PRN PRN Reason: FEVER Last Admin: 01/31/20 03:14 Dose: 650 mg Documented by: Acetylcysteine (Mucomyst 20 Oral / Inh Use Only*) 200 mg NEB RQ4H [facility] Last Admin: 02/16/20 07:30 Dose: 200 mg Documented by: Albuterol Sulfate (Ventolin 0.083% Nebulizer Soln -) 1 amp NEB RQID [facility] Last Admin: 02/16/20 08:16 Dose: 1 amp Documented by: Amino Acids (Prosource No Carb Liquid Pkt) 30 ml PO BIDWM [facility] Last Admin: 02/16/20 08:34 Dose: 30 ml Documented by: Carbidopa/Levodopa (Sinemet 25/250 -) 1 each PO 1600,1900,2200 [facility] Last Admin: 02/15/20 21:31 Dose: 1 each Documented by: Carbidopa/Levodopa (Sinemet 25/250 -) 1 each PO 0700,1000,1300 [facility] Last Admin: 02/16/20 06:16 Dose: 1 each Documented by: Chlorhexidine Gluconate (Hibiclens For Decolonization -) 1 applic TP HS [facility] Last Admin: 02/15/20 21:30 Dose: 1 applic Documented by: Clonazepam (Klonopin -) 2 mg GT TID [facility] Last Admin: 02/16/20 06:15 Dose: 2 mg Documented by: Propofol (Diprivan -) 1,000,000 mcg in 100 mls @ 2.449 mls/hr IVPB TITR [facility]; Protocol Last Admin: 02/16/20 02:52 Dose: 40 mcg/kg/min, 19.595 mls/hr Documented by: Midazolam HCl (Midazolam 100mg/100ml-0.9%Nacl) 100 mg in 100 mls @ 1 mls/hr IVPB TITR [facility]; Protocol Last Admin: 02/16/20 04:45 Dose: 8 mg/hr, 8 mls/hr Documented by: Dextrose/Sodium Chloride (Dextrose 5%-Normal Saline+20 Meq Kcl -) 20 meq in 1,000 mls @ 100 mls/hr IV ASDIR [facility] Last Admin: 02/16/20 00:00 Dose: 100 mls/hr Documented by: Fentanyl (Sublimaze Ivpb) 500 mcg in 100 mls @ 1 mls/hr IVPB TITR [facility]; Protocol Last Admin: 02/16/20 05:26 Dose: Not Given Documented by: Lacosamide (Vimpat Injection -) 100 mg IVPB BID [facility] Last Admin: 02/15/20 21:31 Dose: 100 mg Documented by: Methylprednisolone Sodium Succinate (Solu-Medrol -) 40 mg IVPUSH Q8H-IV [facility] Last Admin: 02/16/20 02:33 Dose: 40 mg Documented by: Pantoprazole Sodium (Protonix Iv) 40 mg IVPUSH BID [facility] Last Admin: 02/15/20 21:31 Dose: 40 mg Documented by: Sodium Chloride ([place] Nasal [place] -) 2 spray NS TID PRN PRN Reason: NASAL CONGESTION Tetrahydrozoline HCl (Visine -) 1 drop OU QID PRN PRN Reason: DRY EYES Last Admin: 02/14/20 13:53 Dose: 1 drop Documented by: - Objective Vital Signs: Vital Signs Temperature 97.9 F 02/16/20 08:00 Pulse Rate 70 02/16/20 08:13 Respiratory Rate 14 02/16/20 08:13 Blood Pressure 108/59 L 02/16/20 08:00 O2 Sat by Pulse Oximetry (%) 99 02/16/20 08:13 Constitutional: Yes: No Distress, Calm, Thin Respiratory: Yes: Regular, CTA Bilaterally, Mechanically Ventilated Gastrointestinal: Yes: Normal Bowel Sounds, Soft Genitourinary: Yes: Merchant Present Extremities: Yes: Other (generalized atrophy + contracted) Edema: No Peripheral Pulses WNL: Yes Neurological: Yes: Other (sedated) Labs: CBC, BMP 02/16/20 05:25 02/16/20 05:25 INR, PTT INR 1.04 (0.83-1.09) 02/06/20 18:00 Problem List - Problems (1) Pneumonia Assessment/Plan: -recurrent -ID consult -IV abx as per ID -IV medrol -Serial CXR's -Pulmonary on board -Bronchodilators -[facility] vent -COVID 19 PCR negative -Cultures: Microbiology 01/27/20 07:00 Sputum - Endotrachea Suction/Ventilator Gram Stain - Final 01/25/20 14:00 Sputum - Endotrachea Suction/Ventilator Gram Stain - Final 01/25/20 14:00 Sputum - Endotrachea Suction/Ventilator Sputum Culture - Final Pseudomonas Aeruginosa Staphylococcus Aureus 01/24/20 23:05 Blood - Peripheral Venous Blood Culture - Preliminary NO GROWTH OBTAINED AFTER 48 HOURS, INCUBATION TO CONTINUE FOR 3 DAYS. 01/24/20 23:05 Blood - Peripheral Venous Blood Culture - Preliminary NO GROWTH OBTAINED AFTER 48 HOURS, INCUBATION TO CONTINUE FOR 3 DAYS. 01/24/20 23:15 Urine - Urine - Catheterized Urine Culture - Final NO GROWTH OBTAINED Problems reviewed: Yes Code(s): J18.9 - PNEUMONIA, UNSPECIFIED ORGANISM Qualifiers: Pneumonia type: due to unspecified organism Laterality: bilateral Lung location: unspecified part of lung Qualified Code(s): J18.9 - Pneumonia, unspecified organism (2) Respiratory failure Assessment/Plan: as above -CXR worse-progress opacification of left hemithorax -trach?Consulted Dr Shi -S/p chest tube for pleural effusion/infiltrate -Vent AC: Rate 14, TV 400, FIO2 60%, PEEP 5, Pplat 25. -No weaning attempted today -Mucomyst, Ventolin, Solumedrol 40 Q8H Problems reviewed: Yes Code(s): J96.90 - RESPIRATORY FAILURE, UNSP, UNSP W HYPOXIA OR HYPERCAPNIA Qualifiers: Chronicity: acute Respiratory failure complication: hypoxia Qualified Code(s): J96.01 - Acute respiratory failure with hypoxia (3) Functional quadriplegia Problems reviewed: Yes Code(s): R53.2 - FUNCTIONAL QUADRIPLEGIA (4) Parkinson disease Assessment/Plan: -Continue Sinemet Problems reviewed: Yes Code(s): G20 - PARKINSON'S DISEASE (5) Supranuclear palsy Assessment/Plan: -Seen by neurology -CT head (02/01): Mild chronic microvascular ischemic changes, possible 1.4cm focal infarct in posterior fossa -CT Head (02/02): Previously identified focal attenuation in cerebellum not defin itely identified Problems reviewed: Yes Code(s): G23.1 - PROGRESSIVE SUPRANUCLEAR OPHTHALMOPLEGIA (6) Cardiac arrest Assessment/Plan: -re-intubated -Needs tracheotomy- will be done at 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 -Increased klonopin from 1 mg BID to 2 mg Q8H for myoclonus Lans Santi syndrome -Repeat CT head shows no change, no anoxic brain injury -EEG results:First 18 minutes of recording which showed no electric seziure and slow background with no asymmetry consistent with history Anoxia and poor prognosis. Second phase sedation stopped and patient was clinically shaking with no electric seizure again. -Neurology input would take the lead -On IV Vimpat 100 mg BID -Transfer to [facility] Problems reviewed: Yes Code(s): G25.3 - MYOCLONUS Assessment/Plan See problem list
[2020-02-16] MEDS ORDERED: CALCIUM GLUCONATE 10% - 1,000 MG/10 ML VIAL IVPB ONE (09:00)
[2020-02-16] MEDS: PANTOPRAZOLE SODIUM 40 MG VIAL IVPUSH SCH ×2 (09:24→21:07)
[2020-02-16] MEDS: Lacosamide 200 MG/20 ML VIAL IVPB SCH ×2 (09:24→21:07)
[2020-02-16] MEDS ORDERED: POTASSIUM PHOSPHATE 20 MM in DEXTROSE 5%-WATER - 250 ML IVPB ONE (10:00)
--- NOTE | 2020-02-16 10:36 | PN ---
Progress Note, Physician History of Present Illness: continues to have myclonus seizures no specific issues continues to be intubated - Current Medication List Current Medications: Active Medications Acetaminophen (Tylenol Oral Solution -) 650 mg GT Q4H PRN PRN Reason: FEVER Last Admin: 01/31/20 03:14 Dose: 650 mg Documented by: Acetylcysteine (Mucomyst 20 Oral / Inh Use Only*) 200 mg NEB RQ4H [facility] Last Admin: 02/16/20 07:30 Dose: 200 mg Documented by: Albuterol Sulfate (Ventolin 0.083% Nebulizer Soln -) 1 amp NEB RQID [facility] Last Admin: 02/16/20 08:16 Dose: 1 amp Documented by: Amino Acids (Prosource No Carb Liquid Pkt) 30 ml PO BIDWM [facility] Last Admin: 02/16/20 08:34 Dose: 30 ml Documented by: Carbidopa/Levodopa (Sinemet 25/250 -) 1 each PO 1600,1900,2200 [facility] Last Admin: 02/15/20 21:31 Dose: 1 each Documented by: Carbidopa/Levodopa (Sinemet 25/250 -) 1 each PO 0700,1000,1300 [facility] Last Admin: 02/16/20 09:32 Dose: 1 each Documented by: Chlorhexidine Gluconate (Hibiclens For Decolonization -) 1 applic TP HS [facility] Last Admin: 02/15/20 21:30 Dose: 1 applic Documented by: Clonazepam (Klonopin -) 2 mg GT TID [facility] Last Admin: 02/16/20 06:15 Dose: 2 mg Documented by: Propofol (Diprivan -) 1,000,000 mcg in 100 mls @ 2.449 mls/hr IVPB TITR [facility]; Protocol Last Admin: 02/16/20 02:52 Dose: 40 mcg/kg/min, 19.595 mls/hr Documented by: Midazolam HCl (Midazolam 100mg/100ml-0.9%Nacl) 100 mg in 100 mls @ 1 mls/hr IVPB TITR [facility]; Protocol Last Admin: 02/16/20 04:45 Dose: 8 mg/hr, 8 mls/hr Documented by: Dextrose/Sodium Chloride (Dextrose 5%-Normal Saline+20 Meq Kcl -) 20 meq in 1,000 mls @ 100 mls/hr IV ASDIR [facility] Last Admin: 02/16/20 00:00 Dose: 100 mls/hr Documented by: Fentanyl (Sublimaze Ivpb) 500 mcg in 100 mls @ 1 mls/hr IVPB TITR [facility]; Protocol Last Admin: 02/16/20 07:00 Dose: 100 mcg/hr, 20 mls/hr Documented by: Potassium Phosphate 20 mm/ (Dextrose) 256.6667 mls @ 62.5 mls/hr IVPB ONCE ONE Stop: 02/16/20 14:06 Last Admin: 02/16/20 09:37 Dose: 62.5 mls/hr Documented by: Lacosamide (Vimpat Injection -) 100 mg IVPB BID [facility] Last Admin: 02/16/20 09:24 Dose: 100 mg Documented by: Methylprednisolone Sodium Succinate (Solu-Medrol -) 40 mg IVPUSH Q8H-IV [facility] Last Admin: 02/16/20 09:32 Dose: 40 mg Documented by: Pantoprazole Sodium (Protonix Iv) 40 mg IVPUSH BID [facility] Last Admin: 02/16/20 09:24 Dose: 40 mg Documented by: Sodium Chloride ([place] Nasal [place] -) 2 spray NS TID PRN PRN Reason: NASAL CONGESTION Tetrahydrozoline HCl (Visine -) 1 drop OU QID PRN PRN Reason: DRY EYES Last Admin: 02/14/20 13:53 Dose: 1 drop Documented by: - Objective Vital Signs: Vital Signs Temperature 97.5 F L 02/16/20 10:00 Pulse Rate 67 02/16/20 10:00 Respiratory Rate 17 02/16/20 10:00 Blood Pressure 121/67 02/16/20 10:00 O2 Sat by Pulse Oximetry (%) 100 02/16/20 10:00 Constitutional: Yes: Other Cardiovascular: Yes: S1, S2 Respiratory: Yes: Intubated, Mechanically Ventilated Gastrointestinal: Yes: Normal Bowel Sounds, Soft Neurological: Yes: Other Labs: CBC, BMP 02/16/20 05:25 02/16/20 05:25 INR, PTT INR 1.04 (0.83-1.09) 02/06/20 18:00 Assessment/Plan this patient with multiple medical issues coming in with ams and resp failure and now intubated Acute Hypoxic and Hypercapneic Respiratory Failure Pneumonia suspect Aspiration Sepsis Lactic Acidosis Parkinsons Supranuclear Palsy cardiac arrest seizures plan continue icu care completed abx continue to monitor off of abx resp support close watch awaiting final plan cc 37 min
--- NOTE | 2020-02-16 12:09 | PN ---
Physical Exam: SUBJECTIVE: Patient seen and examined. No overnight events. Patient had myoclonic jerks after sedation was turned off for 7 minutes. OBJECTIVE: Vital Signs Period Temp Pulse Resp BP Sys/Villegas Pulse Ox Last 24 Hr 97.4 F-99.1 F 63-84 14-18 102-138/59-74 99-100 GENERAL: Intubated and sedated HEENT: NC,AT, pinpoint pupils, edema of lips LUNGS: Breath sounds equal, clear to auscultation bilaterally, no wheezes, no crackles, no accessory muscle use. decreased breath sounds bases b/l HEART: Regular rate and rhythm, S1, S2 without murmur, rub or gallop. ABDOMEN: Soft, nontender, nondistended, normoactive bowel sounds, no guarding, PEG tube in RUQ EXTREMITIES: 2+ pulses, warm, well-perfused, minimal intermittent myoclonic jerks in feet b/l. 1+ edema UE SKIN: Warm, dry, stage III ulcer on L buttock, no erythema, no discharge Neuro: no cough reflex appreciated Laboratory Results - last 24 hr 02/15/20 02/16/20 02/16/20 05:30 05:25 05:25 WBC 6.8 RBC 3.05 L Hgb 9.5 L Hct 28.7 L MCV 94.0 MCH 31.0 MCHC 33.0 RDW 15.7 Plt Count 241 MPV 7.9 Total Counted 100 Neutrophils % (Manual) 85.0 H Lymphocytes % (Manual) 6.0 L Monocytes % (Manual) 7 Myelocytes % (Man) 2 D Platelet Estimate Adequate Anisocytosis 1+ Sodium 143 Potassium 3.6 Chloride 106 Carbon Dioxide 33 H Anion Gap 4 L BUN 10.0 Creatinine 0.3 L Est GFR (CKD-EPI)AfAm 161.45 Est GFR (CKD-EPI)NonAf 139.30 Random Glucose 129 H Calcium 5.9 L* Phosphorus 2.4 L Magnesium 1.9 Albumin 1.7 L Active Medications Generic Name Dose Route Start Last Admin Trade Name Freq PRN Reason Stop Dose Admin Acetaminophen 650 mg 01/27/20 17:27 01/31/20 03:14 Tylenol Oral Solution - GT 650 mg Q4H PRN Administration FEVER Albuterol Sulfate 1 amp 02/15/20 08:00 02/16/20 11:36 Ventolin 0.083% Nebulizer Soln - NEB 1 amp RQID [facility] Administration Amino Acids 30 ml 02/03/20 08:00 02/16/20 08:34 Prosource No Carb Liquid Pkt PO 30 ml BIDWM [facility] Administration Carbidopa/Levodopa 1 each 01/29/20 16:00 02/15/20 21:31 Sinemet 25/250 - PO 1 each 1600,1900,2200 [facility] Administration Carbidopa/Levodopa 1 each 01/30/20 07:00 02/16/20 09:32 Sinemet 25/250 - PO 1 each 0700,1000,1300 [facility] Administration Chlorhexidine Gluconate 1 applic 01/25/20 22:00 02/15/20 21:30 Hibiclens For Decolonization - TP 1 applic HS [facility] Administration Clonazepam 2 mg 02/07/20 10:45 02/16/20 06:15 Klonopin - GT 2 mg TID [facility] Administration Propofol 1,000,000 mcg in 100 mls @ 2.449 mls/hr 01/24/20 22:45 02/16/20 02:52 Diprivan - IVPB 40 mcg/kg/min TITR [facility] 19.595 mls/hr Administration Protocol 5 MCG/KG/MIN Midazolam HCl 100 mg in 100 mls @ 1 mls/hr 02/13/20 15:15 02/16/20 04:45 Midazolam 100mg/100ml-0.9%Nacl IVPB 8 mg/hr TITR [facility] 8 mls/hr Administration Protocol 1 MG/HR Dextrose/Sodium Chloride 20 meq in 1,000 mls @ 100 mls/hr 02/14/20 07:15 02/16/20 00:00 Dextrose 5%-Normal Saline+20 Meq Kcl - IV 100 mls/hr ASDIR [facility] Administration Fentanyl 500 mcg in 100 mls @ 1 mls/hr 02/16/20 05:00 02/16/20 07:00 Sublimaze Ivpb IVPB 100 mcg/hr TITR [facility] 20 mls/hr Administration Protocol 5 MCG/HR Potassium Phosphate 20 mm/ 256.6667 mls @ 62.5 mls/hr 02/16/20 10:00 02/16/20 09:37 Dextrose IVPB 02/16/20 14:06 62.5 mls/hr ONCE ONE Administration Lacosamide 100 mg 02/13/20 22:00 02/16/20 09:24 Vimpat Injection - IVPB 100 mg BID [facility] Administration Methylprednisolone Sodium Succinate 40 mg 01/31/20 13:00 02/16/20 09:32 Solu-Medrol - IVPUSH 40 mg Q8H-IV [facility] Administration Pantoprazole Sodium 40 mg 02/07/20 22:00 02/16/20 09:24 Protonix Iv IVPUSH 40 mg BID [facility] Administration Sodium Chloride 2 spray 01/30/20 06:54 [place] Nasal [place] - NS TID PRN NASAL CONGESTION Tetrahydrozoline HCl 1 drop 01/27/20 18:51 02/14/20 13:53 Visine - OU 1 drop QID PRN Administration DRY EYES ASSESSMENT/PLAN: 64 YO M PMH HTN, BPH, Parkinson's disease with Supranuclear palsy (with PEG tube in RUQ). Found to have PNA. Admitted to ICU for Acute hypoxic, hypercapnic respiratory failure 2/2 PNA. #Neuro - Re-intubated 01/30 after cardiac arrest, Intubated and sedated with midazolam 8 mg/h, propofol 40 mcg/kg/min and fentanl 100 mcg/h. - CT head (02/01): Mild chronic microvascular ischemic changes, possible 1.4cm focal infarct in posterior fossa - CT Head (02/02): Previously identified focal attenuation in cerebellum not definitely identified -Parkinson's disease. c/w Home dose sinemet -CTH: no significant change or acute pathology. Bilateral mastoid effusion/mastoiditis & bilateral otitis media. Moderate volume loss. -Bedside EEG: First phase: no electric seizure and slow background with no asymmetry consistent with history Anoxia. Second phase sedation stopped; pt clinically shaking, but with no electric seizure - Patient had myoclonic jerks after sedation was turned off for 7 minutes. -s/p depakote -Neuro consult (Dr. Bashir) appreciated. continue with klonopin 2 mg Q8H & Vimpat 100 mg IV for myoclonus Lans Santi syndrome #Pulm # Acute hypoxic, hypercapnic respiratory failure 2/2 PNA - S/p chest tube for pleural effusion/infiltrate --CXR (02/12): b/l pulmonary & pleural changes. Left greater than the right. Pro gressive infiltrate -Vent AC: Rate 14, TV 400, FIO2 40%, PEEP 5, Pplat 15. - Mucomyst, Ventolin, Solumedrol 40 Q8H (01/30) #Cardio #HTN: maintain MAP >65. #ST elevation on EKG EKG: Sinus tachycardia. Left axis deviation. Right bundle branch block. ST elevation. 101 bpm, QTC 464. -Trop X2 negative -lactic acidosis resolved. -Cardiology consult (Dr. Jauregui): RBBB, possibly lateral ST elevations, no need for further cardiac work-up nor testing in this setting. -off of pressors -Cardiac arrest on 01/30 #GI - PEG tube in place - Family considering J tube to decrease risk of aspiration. -continue with protonix 40 mg BID IV push. monitor with serial CBCs, transfuse PRN #Heme - h/o bloody stool. continue holding Lovenox. -Hgb/Hct improved to 9.5/28.7 #ID -CXR (02/12): b/l pulmonary & pleural changes. Left greater than the right. Progressive infiltrate -blood culture neg X2 (01/23), ucx neg (01/23) -sputum cx: pseudomonas aeruginosa & staph aureus. Pseudomonas sensitive to zosyn. -s/p zosyn 4.5 g IVPB Q6H (01/23-02/12). Discussed with ID. #Renal - BUN/Cr 16/0.3 today - UA 1+ Protein with trace ketones -3987.2 mL I's/2150 ml O's/ 1837.2 ml balance #FEN -D5 NS +20 meq KCl @ 100 ml/hr given pt is not receiving feeds -monitor lytes. - feeds stopped 2/2 blood in stool yesterday #DVT PPX blood in stool yesterday. continue holding Lovenox #Lines mensah ETT (01/24), (01/30 s/p cardiac arrest) RUQ peg (patient presented to ED with it) Right IJ triple lumen (02/09) #Dispo - ICU. Patient accepted to transfer to neuro ICU at [facility]. Accepting physician: Dr. Dmitri Gabriel -Family wants FULL code now -son Dr. Marj Kaplan: [phone]. Visit type - Emergency Visit Emergency Visit: Yes ED Registration Date: 01/24/20 Care time: The patient presented to the Emergency Department on the above date and was hospitalized for further evaluation of their emergent condition. - New Patient This patient is new to me today: No - Critical Care Critical Care patient: No - Medication Review Med list reviewed for High Risk Meds patients 65 and older: Yes ATTENDING PHYSICIAN STATEMENT I saw and evaluated the patient. I reviewed the resident's note and discussed the case with the resident. I agree with the resident's findings and plan as documented. SUBJECTIVE: OBJECTIVE: ASSESSMENT AND PLAN:
[2020-02-16] MEDS ORDERED: FENTANYL IVPB 500 MCG/100 ML BAG IVPB ONE (14:07)
--- NOTE | 2020-02-16 15:41 | PN ---
Teaching Attending Note Name of Resident: Errol Franco ATTENDING PHYSICIAN STATEMENT I saw and evaluated the patient. I reviewed the resident's note and discussed the case with the resident. I agree with the resident's findings and plan as documented. SUBJECTIVE: Patient seen and examined in the ICU. Intubated, sedated. No pressors. FiO2 40%. Still with increased myoclonic activity even with brief interruption in sedation. Patient has been accepted to [facility] per family request for transfer for further evaluation. OBJECTIVE: Intake & Output 02/13/20 02/14/20 02/15/20 02/16/20 23:59 23:59 23:59 23:59 Intake Total 3244.4 3970.8 3987.2 1252.8 Output Total 5350 4350 2150 700 Balance -2105.6 -379.2 1837.2 552.8 Weight 158 lb 14.4 oz 157 lb 9.6 oz 157 lb 6.4 oz 157 lb 14.4 oz Last Vital Signs Temp Pulse Resp BP Pulse Ox 97.5 F L 65 14 136/74 100 02/16/20 10:00 02/16/20 12:00 02/16/20 12:00 02/16/20 12:00 02/16/20 12:00 Active Medications Acetaminophen (Tylenol Oral Solution -) 650 mg GT Q4H PRN PRN Reason: FEVER Last Admin: 01/31/20 03:14 Dose: 650 mg Documented by: Albuterol Sulfate (Ventolin 0.083% Nebulizer Soln -) 1 amp NEB RQID [facility] Last Admin: 02/16/20 11:36 Dose: 1 amp Documented by: Amino Acids (Prosource No Carb Liquid Pkt) 30 ml PO BIDWM [facility] Last Admin: 02/16/20 08:34 Dose: 30 ml Documented by: Carbidopa/Levodopa (Sinemet 25/250 -) 1 each PO 1600,1900,2200 [facility] Last Admin: 02/15/20 21:31 Dose: 1 each Documented by: Carbidopa/Levodopa (Sinemet 25/250 -) 1 each PO 0700,1000,1300 [facility] Last Admin: 02/16/20 13:37 Dose: 1 each Documented by: Chlorhexidine Gluconate (Hibiclens For Decolonization -) 1 applic TP HS [facility] Last Admin: 02/15/20 21:30 Dose: 1 applic Documented by: Clonazepam (Klonopin -) 2 mg GT TID [facility] Last Admin: 02/16/20 13:36 Dose: 2 mg Documented by: Propofol (Diprivan -) 1,000,000 mcg in 100 mls @ 2.449 mls/hr IVPB TITR [facility]; Protocol Last Admin: 02/16/20 02:52 Dose: 40 mcg/kg/min, 19.595 mls/hr Documented by: Midazolam HCl (Midazolam 100mg/100ml-0.9%Nacl) 100 mg in 100 mls @ 1 mls/hr IVPB TITR [facility]; Protocol Last Admin: 02/16/20 04:45 Dose: 8 mg/hr, 8 mls/hr Documented by: Dextrose/Sodium Chloride (Dextrose 5%-Normal Saline+20 Meq Kcl -) 20 meq in 1,000 mls @ 100 mls/hr IV ASDIR [facility] Last Admin: 02/16/20 00:00 Dose: 100 mls/hr Documented by: Fentanyl (Sublimaze Ivpb) 500 mcg in 100 mls @ 1 mls/hr IVPB TITR [facility]; Protocol Last Admin: 02/16/20 07:00 Dose: 100 mcg/hr, 20 mls/hr Documented by: Lacosamide (Vimpat Injection -) 100 mg IVPB BID [facility] Last Admin: 02/16/20 09:24 Dose: 100 mg Documented by: Methylprednisolone Sodium Succinate (Solu-Medrol -) 40 mg IVPUSH Q8H-IV [facility] Last Admin: 02/16/20 09:32 Dose: 40 mg Documented by: Pantoprazole Sodium (Protonix Iv) 40 mg IVPUSH BID [facility] Last Admin: 02/16/20 09:24 Dose: 40 mg Documented by: Sodium Chloride ([place] Nasal [place] -) 2 spray NS TID PRN PRN Reason: NASAL CONGESTION Tetrahydrozoline HCl (Visine -) 1 drop OU QID PRN PRN Reason: DRY EYES Last Admin: 02/14/20 13:53 Dose: 1 drop Documented by: Gen: intubated, sedated Heart: RRR Lung: scattered rhonchi Abd: soft, nontender Ext: no edema Laboratory Results - last 24 hr 02/16/20 02/16/20 05:25 05:25 WBC 6.8 RBC 3.05 L Hgb 9.5 L Hct 28.7 L MCV 94.0 MCH 31.0 MCHC 33.0 RDW 15.7 Plt Count 241 MPV 7.9 Sodium 143 Potassium 3.6 Chloride 106 Carbon Dioxide 33 H Anion Gap 4 L BUN 10.0 Creatinine 0.3 L Est GFR (CKD-EPI)AfAm 161.45 Est GFR (CKD-EPI)NonAf 139.30 Random Glucose 129 H Calcium 5.9 L* Phosphorus 2.4 L Magnesium 1.9 Albumin 1.7 L ASSESSMENT AND PLAN: Acute Hypoxic and Hypercapneic Respiratory Failure s/p Cardiopulmonary Arrest with Anoxic Brain Injury Pneumonia suspect Aspiration Sepsis Lactic Acidosis r/o OR Parkinsons Supranuclear Palsy - titrate klonopin as needed - Completed antibiotics - monitor urine output, creatinine - continue volume assist control - enteral feeds - DVT/GI prophylaxis - continue ICU monitoring - poor overall prognosis, continue discussions regarding goals of care, advanced directives - Will need tracheostomy pending family wishes - recommend comfort measures The patient has been accepted to the Neuro ICU at [facility] as per family wishes for further evaluation. Dr Scott Critical care time spent in reviewing chart, evaluating patient and formulating plan 35 min
[2020-02-16 20:18] VITALS: PULSE 74
[2020-02-16 20:21] VITALS: BP 119/64; TEMP 97
[2020-02-16] MEDS: CHLORHEXIDINE GLUCONATE 4% CLEANSER FOR DECOLONIZATION TP SCH (21:06)
[2020-02-16] MEDS ORDERED: methylPREDNISolone NA SUCC 40 MG/1 ML VIAL IVPUSH SCH (22:00)
--- NOTE | 2020-02-17 10:50 | DS ---
Physical Exam: SUBJECTIVE: Patient seen and examined OBJECTIVE: Vital Signs Period Temp Pulse Resp BP Sys/Villegas Pulse Ox Last 24 Hr 97 F-97.5 F 53-74 14-16 119-136/64-76 100-100 PHYSICAL EXAM GENERAL: The patient is awake, alert, and fully oriented, in no acute distress. HEAD: Normal with no signs of trauma. EYES: PERRL, extraocular movements intact, sclera anicteric, conjunctiva clear. ENT: Ears normal, nares patent, oropharynx clear without exudates, moist mucous membranes. NECK: Trachea midline, full range of motion, supple. LUNGS: Breath sounds equal, clear to auscultation bilaterally, no wheezes, no crackles, no accessory muscle use. HEART: Regular rate and rhythm, S1, S2 without murmur, rub or gallop. ABDOMEN: Soft, nontender, nondistended, normoactive bowel sounds, no guarding, no rebound, no hepatosplenomegaly, no masses. EXTREMITIES: 2+ pulses, warm, well-perfused, no edema. NEUROLOGICAL: Cranial nerves II through XII grossly intact. Normal speech, gait not observed. PSYCH: Normal mood, normal affect. SKIN: Warm, dry, normal turgor, no rashes or lesions noted. LABS HOSPITAL COURSE: Date of Admission:01/24/20 Date of Discharge: 02/17/20 Discharge Summary Problems reviewed: Yes Reason For Visit: SUPRANUCLEAR PARALYSIS, SEPSIS, PNUEMONIA Condition: Fair - Instructions Referrals: Osmani Starks MD [Primary Care Provider] - Disposition: TRANSFER ACUTE CARE/OTHER HOSP - Home Medications Comprehensive Discharge Medication List: Ambulatory Orders Doxazosin Mesylate 4 mg PO DAILY 03/09/19 Mirtazapine 30 mg PO DAILY 03/09/19 Multivitamin 1 each GT DAILY #30 tablet 12/29/19 Carbidopa/Levodopa 25/250 [Sinemet 25/250 -] 1 each PO Q3H 01/25/20 - Discharge Referral Referred to [facility] No ATTENDING PHYSICIAN STATEMENT I saw and evaluated the patient. I reviewed the resident's note and discussed the case with the resident. I agree with the resident's findings and plan as documented. SUBJECTIVE: OBJECTIVE: ASSESSMENT AND PLAN:
== END 2020-02-16 22:24 | disposition short-term general hospital (02) | DRG 870 ==
LOC: JER 22:14 → JERBED 23:21 → JICU 01-25 04:33
PROVIDERS: ADMIT Internal Medicine Pulmonary Disease; ATTEND Internal Medicine Pulmonary Disease
PROC: 5A1945Z Respiratory Ventilation, 24-96 Consecutive Hours (ICD-10-PCS; 2020-01-25)
PROC: 0BH17EZ Insertion of Endotracheal Airway into Trachea, Via Natural or Artificial Opening (ICD-10-PCS; 2020-01-25)
PROC: 0W9B30Z Drainage of Left Pleural Cavity with Drainage Device, Percutaneous Approach (ICD-10-PCS; 2020-01-25)
PROC: 5A1955Z Respiratory Ventilation, Greater than 96 Consecutive Hours (ICD-10-PCS; principal; 2020-01-31)
PROC: 0BH17EZ Insertion of Endotracheal Airway into Trachea, Via Natural or Artificial Opening (ICD-10-PCS; 2020-01-31)
PROC: 5A12012 Performance of Cardiac Output, Single, Manual (ICD-10-PCS; 2020-01-31)
PROC: 05HN33Z Insertion of Infusion Device into Left Internal Jugular Vein, Percutaneous Approach (ICD-10-PCS; 2020-02-01)
PROC: B544ZZA Ultrasonography of Left Jugular Veins, Guidance (ICD-10-PCS; 2020-02-01)
PROC: 05HM33Z Insertion of Infusion Device into Right Internal Jugular Vein, Percutaneous Approach (ICD-10-PCS; 2020-02-09)
PROC: B543ZZA Ultrasonography of Right Jugular Veins, Guidance (ICD-10-PCS; 2020-02-09)
PROC: 30233N1 Transfusion of Nonautologous Red Blood Cells into Peripheral Vein, Percutaneous Approach (ICD-10-PCS; 2020-02-09)
DX: A41.9 Sepsis, unspecified organism (principal); J69.0 Pneumonitis due to inhalation of food and vomit; J96.02 Acute respiratory failure with hypercapnia; J96.01 Acute respiratory failure with hypoxia; R53.2 Functional quadriplegia; I46.9 Cardiac arrest, cause unspecified; G92 Toxic encephalopathy; G23.1 Progressive supranuclear ophthalmoplegia [Steele-Richardson-Olszewski]; E87.2 Acidosis; E87.4 Mixed disorder of acid-base balance; J98.11 Atelectasis; I31.3 Pericardial effusion (noninflammatory); J90 Pleural effusion, not elsewhere classified; J98.19 Other pulmonary collapse; J93.9 Pneumothorax, unspecified; J94.2 Hemothorax; K92.2 Gastrointestinal hemorrhage, unspecified; G20 Parkinson's disease; G25.3 Myoclonus; I95.9 Hypotension, unspecified; R00.0 Tachycardia, unspecified; N40.0 Benign prostatic hyperplasia without lower urinary tract symptoms
CPT/HCPCS: 31500; 36415; 36430; 36600; 70450-TC; 71045-TC-FY; 71275-TC; 80048; 80053; 81003; 82040; 82550; 82803; 82962; 83605; 83735; 84100; 84146; 84484; 85025; 85027; 85610; 85730; 86850; 86900; 86901; 86922; 87040; 87070; 87086; 87186; 87205; 93005; 93010; 94002; 94640; 95816; 99291; 99292; G0480; J0131; P9058; U0003